=== PATIENT | male | born 1950 | race Caucasian/White ===

== ENCOUNTER 2017-04-26 10:18 | Outpatient (POV) | payer MEDICARE, OTHER, SELFPAY | END 2017-04-26 11:03 | disposition home or self-care (01) | PROVIDERS: Visit Provider Podiatrist | DX: M72.2 Plantar fascial fibromatosis (principal) | CPT/HCPCS: 99212 ==

== ENCOUNTER 2017-05-28 09:45 | Outpatient (CLI) | payer MEDICARE, OTHER, SELFPAY ==
[2017-05-28 13:54] LABS: PHA INR Fingerstick 1.9 (0.9-1.1)
== END 2017-05-28 14:07 | disposition home or self-care (01) ==
LOC: ACC 09:48
PROVIDERS: PCP Family Medicine; Visit Provider Emergency Medicine
DX: I48.91 Unspecified atrial fibrillation (principal); Z79.01 Long term (current) use of anticoagulants; Z51.81 Encounter for therapeutic drug level monitoring
CPT/HCPCS: 85610; 99211; G0463

== ENCOUNTER → 2017-07-05 09:31 | Outpatient (POV) | payer MEDICARE, OTHER, SELFPAY ==
[2017-07-05 09:39] VITALS: BP 164/77; PULSE 95; RESP 22; O2SAT 96; BMI 31.2
--- NOTE | 2017-07-05 10:17 | HMH.PAINSOAP ---
[facility] Pain Management SOAP Note Subjective:: Patient is a pleasant 66-year-old white male who presents today for medication refills. Patient is being treated in our pain clinic for neck pain secondary to cervical degenerative disc disease. He is also has a right sacroiliitis with his is recently been through bilateral mastectomy and he is having a lot of running around to do with her. He states that this increase in activity has elevated his pain some. However the increase of gabapentin at his last visit to 300 mg 1 p.o. 3 times daily has helped decrease his pain significantly. Patient is currently medically managed on [place] 7.5 p.o. 3 times daily and gabapentin 300 mg 1 p.o. 3 times daily. Patient rates his pain a 7 out of 10 today. Patient denies any side effects to the medication. Patient is unable to do injective therapy at this time due to his 's chemotherapy schedule. He is interested in it in the future. Patient denies any side effects from his medication and states that it decreases his pain 50-60%. ROS General: no recent weight change, no fever, no sleep disturbances Respiratory: no cough, no shortness of air, no recurring pulmonary infections Cardiovascular/Peripheral Vascular: No chest pain, No palpitations, no edema, no shortness of breath. Gastrointestinal: no incontinence, normal bowel movements reported Genitourinary: no incontinence Musculoskeletal: Neck pain, back pain, right SI pain Psychiatric: normal mood/ affect Neurological: [denies weakness in extremities], [denies balance issues], vertigo at times Objective:: Physical Exam General: Alert and oriented x3, no acute distress, pleasant and cooperative, [on room air] Lungs: Resps E/U, Symmetrical chest expansion, Eyes: PERRL Musculoskeletal: Flexion and extension of cervical and lumbar spine somewhat guarded secondary to pain, deep tendon reflexes normal, strength in upper and lower extremities [5/5], lightly antalgic gait noted, positive Álvaro's test on the right side Neurological: speech clear, slots manager equal, no gross sensory deficits Assessment:: Degenerative disc disease of the cervical spine, degenerative disc disease of the thoracic spine, degenerative disc disease of the lumbar spine with lumbar radiculopathy, right sacroiliitis Plan:: We will refill this patient's [place] 7.5 p.o. 3 times daily and gabapentin 300 [address] Martel has reviewed his chart and agrees. Patient's UDS is pending today. We will continue to monitor this. Patient's ROSEMARIE [id number] reviewed and appropriate. We will readdress SI joint injection at his next visit. We will give him 2 months worth of prescriptions today and see him back in 3 months. I discussed with the patient that he can take gabapentin up to 4 times a day. If he finds that this is more effective for his pain control we can call this prescription in. Patient has been prescribed a controlled substance after being counseled on the medication, medication safety, and possible side effects. ROSEMARIE report has been obtained and reviewed prior to prescription and found to be appropriate. Opioid contract was reviewed and signed by the patient, and that they have agreed to all of the terms set forth by our compliance program. This note was dictated using voice recognition software may contain errors or omissions
--- NOTE | 2017-07-05 10:20 | P.CONS_ITS ---
[facility] Pain Management SOAP Note Subjective:: Patient is a pleasant 66-year-old white male who presents today for medication refills. Patient is being treated in our pain clinic for neck pain secondary to cervical degenerative disc disease. He is also has a right sacroiliitis with his is recently been through bilateral mastectomy and he is having a lot of running around to do with her. He states that this increase in activity has elevated his pain some. However the increase of gabapentin at his last visit to 300 mg 1 p.o. 3 times daily has helped decrease his pain significantly. Patient is currently medically managed on [place] 7.5 p.o. 3 times daily and gabapentin 300 mg 1 p.o. 3 times daily. Patient rates his pain a 7 out of 10 today. Patient denies any side effects to the medication. Patient is unable to do injective therapy at this time due to his 's chemotherapy schedule. He is interested in it in the future. Patient denies any side effects from his medication and states that it decreases his pain 50-60 %. ROS General: no recent weight change, no fever, no sleep disturbances Respiratory: no cough, no shortness of air, no recurring pulmonary infections Cardiovascular/Peripheral Vascular: No chest pain, No palpitations, no edema, no shortness of breath. Gastrointestinal: no incontinence, normal bowel movements reported Genitourinary: no incontinence Musculoskeletal: Neck pain, back pain, right SI pain Psychiatric: normal mood/ affect Neurological: [denies weakness in extremities], [denies balance issues], vertigo at times Objective:: Physical Exam General: Alert and oriented x3, no acute distress, pleasant and cooperative, [ on room air] Lungs: Resps E/U, Symmetrical chest expansion, Eyes: PERRL Musculoskeletal: Flexion and extension of cervical and lumbar spine somewhat guarded secondary to pain, deep tendon reflexes normal, strength in upper and lower extremities [5/5], lightly antalgic gait noted, positive Álvaro's test on the right side Neurological: speech clear, 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 3 times daily and gabapentin 300 mg [address] Martel has reviewed his chart and agrees. Patient's UDS is pending today. We will continue to monitor this. Patient's ROSEMARIE [id number] reviewed and appropriate. We will readdress SI joint injection at his next visit. We will give him 2 months worth of prescriptions today and see him back in 3 months. I discussed with the patient that he can take gabapentin up to 4 times a day. If he finds that this is more effective for his pain control we can call this prescription in. Patient has been prescribed a controlled substance after being counseled on the medication, medication safety, and possible side effects. ROSEMARIE report has been obtained and reviewed prior to prescription and found to be appropriate. Opioid contract was reviewed and signed by the patient, and that they have agreed to all of the terms set forth by our compliance program. This note was dictated using voice recognition software may contain errors or omissions
[2017-07-05 17:27] LABS: Amphetamine/Metha Screen,Urine Negative ng/mL (<1000); Barbiturates Screen,Urine Negative ng/mL (<200); Benzodiazepines Screen,Urine Negative ng/mL (200); Cannabinoid Screen,Urine Negative ng/mL (<50); Cocaine Screen,Urine Negative ng/g (<300); Methadone Screen,Urine Negative ng/mL (<300); Opiate Screen,Urine Positive ng/mL (<300); Phencyclidine Screen,Urine Negative ng/mL (<25)
[2017-07-12 12:12] LABS: Codeine Negative (Cutoff=100); Hydrocodone Positive (.); Hydromorphone Positive (.); Morphine Negative (Cutoff=100)
[2017-07-12 13:37] LABS: Opiates Positive (.)
--- NOTE | 2017-08-17 13:14 | PC.PHONENOTE ---
08/16/17-called in Rx for Gabapentin 300mg QID with 2 refills to pt pharmacy
--- NOTE | 2017-11-29 11:20 | PC.NURSE ---
GABAPENTIN 300MG QID WITH 2 REFILLS CALLED INTO [facility]
== END ==
PROVIDERS: Family Provider Family Medicine; PCP Family Medicine; Visit Provider Clinical Nurse Specialist Family Health
DX: M54.12 Radiculopathy, cervical region (principal); M46.1 Sacroiliitis, not elsewhere classified; Z79.899 Other long term (current) drug therapy
CPT/HCPCS: 99212; 36415; 80305; 80361; 80365; G0480

== ENCOUNTER 2017-07-09 09:43 | Outpatient (CLI) | payer MEDICARE, OTHER, SELFPAY ==
[2017-07-09 13:27] LABS: PHA INR Fingerstick 1.6 (0.9-1.1)
== END 2017-07-09 13:45 | disposition home or self-care (01) ==
LOC: ACC 09:44
PROVIDERS: Family Provider Family Medicine; PCP Family Medicine; Visit Provider Emergency Medicine
DX: I48.91 Unspecified atrial fibrillation (principal); Z79.01 Long term (current) use of anticoagulants
CPT/HCPCS: 85610; 99211; G0463

== ENCOUNTER 2017-07-30 09:46 | Outpatient (CLI) | payer MEDICARE, OTHER, SELFPAY ==
[2017-07-30 10:44] LABS: PHA INR Fingerstick 1.7 (0.9-1.1)
== END 2017-07-30 10:55 | disposition home or self-care (01) ==
LOC: ACC 09:47
PROVIDERS: Family Provider Family Medicine; PCP Family Medicine; Visit Provider Emergency Medicine
DX: Z79.01 Long term (current) use of anticoagulants (principal); Z51.81 Encounter for therapeutic drug level monitoring; I48.91 Unspecified atrial fibrillation
CPT/HCPCS: 85610; 99211; G0463

== ENCOUNTER 2017-08-20 09:48 | Outpatient (CLI) | payer MEDICARE, OTHER, SELFPAY ==
[2017-08-20 13:36] LABS: PHA INR Fingerstick 1.7 (0.9-1.1)
== END 2017-08-20 13:57 | disposition home or self-care (01) ==
LOC: ACC 09:49
PROVIDERS: Family Provider Family Medicine; PCP Family Medicine; Visit Provider Nurse Practitioner Family
DX: Z79.01 Long term (current) use of anticoagulants (principal); Z51.81 Encounter for therapeutic drug level monitoring; I48.91 Unspecified atrial fibrillation
CPT/HCPCS: 85610; 99211; G0463

== ENCOUNTER → 2017-09-06 10:03 | Outpatient (POV) | payer MEDICARE, OTHER, SELFPAY ==
--- NOTE | 2017-09-06 10:57 | HMH.PAINSOAP ---
[facility] Pain Management SOAP Note Subjective:: This patient is a pleasant 66-year-old white male who we are treating for low back pain with lumbar radiculopathy symptoms. We are also treating him for neck pain with degenerative disease of cervical spine and cervical radiculopathy symptoms. He is currently on [place] 7.5 mg 3 times a day along with gabapentin 300 mg increase to 4 times a day. He is doing well with these medications. Patient rates his pain at a 5-6 out of 10 today. Kaspar and urine drug screen are all appropriate. Kaspar #[id number]. Patient does not need any injections at this time. He is very functional and doing well with his current medication regimen. Medication decreases his pain 60-70%. We will follow-up with him in 3 months. We may pursue injections at that time if needed. We will give him 2 months worth of prescriptions of his [place] 7.5 mg 3 times a day. Objective:: Alert and oriented ?3 in no acute distress. Patient does have an antalgic gait. Motor strength of the lower extremities is 5/5. There is no gross sensory deficit. Assessment:: Degenerative disc disease of the cervical spine with cervical radiculopathy symptoms. Degenerative disease of lumbar spine with lumbar radiculopathy symptoms. Sacroiliitis. Degenerative disease of the thoracic spine. Plan:: We will refill his [place] 7.5 mg 1 tablet 3 times a day. We will give him 2 months worth of prescriptions. Will follow up with him in 3 months. We may pursue injections in the future. At this time patient is doing well on his current medication regimen. He is also on gabapentin 300 mg 4 times a day
--- NOTE | 2017-09-06 11:00 | P.CONS_ITS ---
[facility] Pain Management SOAP Note Subjective:: This patient is a pleasant 66-year-old white male who we are treating for low back pain with lumbar radiculopathy symptoms. We are also treating him for neck pain with degenerative disease of cervical spine and cervical radiculopathy symptoms. He is currently on [place] 7.5 mg 3 times a day along with gabapentin 300 mg increase to 4 times a day. He is doing well with these medications. Patient rates his pain at a 5-6 out of 10 today. Kaspar and urine drug screen are all appropriate. Kaspar #[id number]. Patient does not need any injections at this time. He is very functional and doing well with his current medication regimen. Medication decreases his pain 60-70%. We will follow-up with him in 3 months. We may pursue injections at that time if needed. We will give him 2 months worth of prescriptions of his [place] 7.5 mg 3 times a day. Objective:: Alert and oriented ?3 in no acute distress. Patient does have an antalgic gait. Motor strength of the lower extremities is 5/5. There is no gross sensory deficit. Assessment:: Degenerative disc disease of the cervical spine with cervical radiculopathy symptoms. Degenerative disease of lumbar spine with lumbar radiculopathy symptoms. Sacroiliitis. Degenerative disease of the thoracic spine. Plan:: We will refill his [place] 7.5 mg 1 tablet 3 times a day. We will give him 2 months worth of prescriptions. Will follow up with him in 3 months. We may pursue injections in the future. At this time patient is doing well on his current medication regimen. He is also on gabapentin 300 mg 4 times a day
[2017-09-06 12:04] VITALS: BP 105/88; PULSE 79; RESP 18; TEMP 36.6; O2SAT 97; BMI 31.2
== END ==
PROVIDERS: Family Provider Family Medicine; PCP Family Medicine; Visit Provider Anesthesiology
DX: M54.12 Radiculopathy, cervical region (principal); M54.16 Radiculopathy, lumbar region
CPT/HCPCS: 99212

== ENCOUNTER 2017-09-08 09:43 | Outpatient (CLI) | payer MEDICARE, OTHER, SELFPAY ==
[2017-09-08 11:26] LABS: PHA INR Fingerstick 1.9 (0.9-1.1)
== END 2017-09-08 11:49 | disposition home or self-care (01) ==
LOC: ACC 09:45
PROVIDERS: Family Provider Family Medicine; PCP Family Medicine; Visit Provider Emergency Medicine
DX: Z79.01 Long term (current) use of anticoagulants (principal); Z51.81 Encounter for therapeutic drug level monitoring; I48.91 Unspecified atrial fibrillation
CPT/HCPCS: 85610; 99211; G0463

== ENCOUNTER 2017-09-22 09:43 | Outpatient (CLI) | payer MEDICARE, OTHER, SELFPAY ==
[2017-09-22 11:33] LABS: PHA INR Fingerstick 1.9 (0.9-1.1)
== END 2017-09-22 11:37 | disposition home or self-care (01) ==
LOC: ACC 09:44
PROVIDERS: PCP Nurse Practitioner Family; Visit Provider Nurse Practitioner Family
DX: Z79.01 Long term (current) use of anticoagulants (principal); Z51.81 Encounter for therapeutic drug level monitoring; I48.91 Unspecified atrial fibrillation
CPT/HCPCS: 85610; 99211; G0463

== ENCOUNTER 2017-10-13 09:42 | Outpatient (CLI) | payer MEDICARE, OTHER, SELFPAY ==
[2017-10-13 11:38] LABS: PHA INR Fingerstick 2.2 (0.9-1.1)
== END 2017-10-13 11:39 | disposition home or self-care (01) ==
LOC: ACC 09:43
PROVIDERS: Family Provider Family Medicine; PCP Nurse Practitioner Family; Visit Provider Nurse Practitioner Family
DX: Z79.01 Long term (current) use of anticoagulants (principal); Z51.81 Encounter for therapeutic drug level monitoring; I48.91 Unspecified atrial fibrillation
CPT/HCPCS: 85610; 99211; G0463

== ENCOUNTER → 2017-11-20 08:04 | Outpatient (CLI) | payer MEDICARE, OTHER, SELFPAY ==
[2017-11-20 09:12] LABS: Alanine Aminotransferase 75 U/L (12-78); Albumin Level 3.9 gm/dL (3.4-5.0); Albumin/Globulin Ratio 1.1 (1.1-1.8); Alkaline Phosphatase 43 U/L (46-116); Aspartate Amino Transferase 46 U/L (15-37); Bilirubin,Total 0.5 mg/dL (0.2-1.0); Blood Urea Nitrogen 22 mg/dL (7-18); Calcium 9.5 mg/dL (8.5-10.1); Carbon Dioxide 30 mmol/L (21.0-32.0); Chloride 110 mmol/L (98-107); Chol/HDL Ratio 4.4 (1-3.5); Cholesterol 142 mg/dL (140-200); Creatinine,Serum 0.92 mg/dL (0.70-1.30); Estimated Glomerular Filt Rate 83 ml/min (>60); GFR (African American) 100 ML/MIN (>60); Globulin 3.4 gm/dl (1.3-3.2); Glucose 119 mg/dL (74-106); HDL Cholesterol 32 mg/dL (27-67); LDL Cholesterol 81 mg/dL (0-130); Sodium 144 mmol/L (136-145); Total Protein,Serum 7.3 gm/dL (6.4-8.2); Triglycerides 144 mg/dL (30-200); VLDL Cholesterol 29 mg/dL (0-40)
== END ==
PROVIDERS: Visit Provider Family Medicine
DX: E11.9 Type 2 diabetes mellitus without complications (principal); E78.5 Hyperlipidemia, unspecified; I10 Essential (primary) hypertension
CPT/HCPCS: 36415; 80053; 80061; 83036

== ENCOUNTER 2017-11-24 09:41 | Outpatient (CLI) | payer MEDICARE, OTHER, SELFPAY | END 2017-11-24 16:07 | disposition home or self-care (01) | LOC: ACC 09:42 | PROVIDERS: Family Provider Family Medicine; PCP Nurse Practitioner Family; Visit Provider Nurse Practitioner Family | DX: Z79.01 Long term (current) use of anticoagulants (principal); Z51.81 Encounter for therapeutic drug level monitoring; I48.91 Unspecified atrial fibrillation | CPT/HCPCS: 85610; 99211; G0463 ==

== ENCOUNTER → 2017-12-06 08:49 | Outpatient (POV) | payer MEDICARE, OTHER, SELFPAY ==
[2017-12-06 08:52] VITALS: BP 173/84; PULSE 85; RESP 18; O2SAT 98; BMI 30.9
--- NOTE | 2017-12-06 09:15 | HMH.PAINSOAP ---
[facility] Pain Management SOAP Note Subjective:: Patient is a pleasant 67-year-old white male who presents today for medication refills. We are treating him for pain secondary to degenerative disc disease of cervical spine with cervical radiculopathy. Patient also has degenerative disc disease of the lumbar spine with lumbar radiculopathy. Patient states most of his pain is in his mid back today. He states it does not radiate at this time. He is currently Beekley managed with [place] 7.5 mg 1 p.o. 3 times daily. Is also on gabapentin 300 mg 4 times a day however he states he is having some side effects due to the increase in his gabapentin at his last visit. Patient states he is having some memory trouble since increasing his gabapentin we will decrease him today patient's [facility] #[id number] reviewed and appropriate. Patient will go for urine drug screen today. Patient's urine drug screen has been appropriate in the past. Patient rates his pain a 7 out of 10 today. Patient had injections in the past however he states that it has not helped him much. Patient states the medication helps decrease his pain up to 70%. ROS General: no recent weight change, no fever, no sleep disturbances Respiratory: no cough, no shortness of air, no recurring pulmonary infections Cardiovascular/Peripheral Vascular: No chest pain, No palpitations, no edema, no shortness of breath. Gastrointestinal: no incontinence, normal bowel movements reported Genitourinary: no incontinence Musculoskeletal: Back pain Psychiatric: normal mood/ affect Neurological: [denies weakness in extremities], [denies balance issues] Objective:: Physical Exam General: Alert and oriented x3, no acute distress, pleasant and cooperative, [on room air] Lungs: Resps E/U, Symmetrical chest expansion Eyes: PERRL Musculoskeletal: Flexion and extension of thoracic and lumbar spine somewhat guarded secondary to pain, deep tendon reflexes normal, strength in upper and lower extremities [5/5], normal gait noted Neurological: speech clear, 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 Degenerative disc disease of the thoracic spine Plan:: We will refill the patient's [place] 7.5 mg 1 tablet p.o. 3 times daily. We will decrease his gabapentin to 300 mg 1 p.o. 3 times daily. I will give him 2 months worth of medications will follow-up with him in 3 months. Patient can picker box operator his third month in the interim. Patient's been instructed to call the office if he has any issues prior to this. Dr. Martel has reviewed this chart and agrees with this plan of care. Patient has been prescribed a controlled substance after being counseled on the medication, medication safety, and possible side effects. ROSEMARIE report has been obtained and reviewed prior to prescription and found to be appropriate. Opioid contract was reviewed and signed by the patient, and that they have agreed to all of the terms set forth by our compliance program. This note was dictated using voice recognition software and may contain errors or omissions
--- NOTE | 2017-12-06 09:18 | P.CONS_ITS ---
[facility] Pain Management SOAP Note Subjective:: Patient is a pleasant 67-year-old white male who presents today for medication refills. We are treating him for pain secondary to degenerative disc disease of cervical spine with cervical radiculopathy. Patient also has degenerative disc disease of the lumbar spine with lumbar radiculopathy. Patient states most of his pain is in his mid back today. He states it does not radiate at this time. He is currently Beekley managed with [place] 7.5 mg 1 p.o. 3 times daily. Is also on gabapentin 300 mg 4 times a day however he states he is having some side effects due to the increase in his gabapentin at his last visit. Patient states he is having some memory trouble since increasing his gabapentin we will decrease him today patient's [facility] #[id number] reviewed and appropriate. Patient will go for urine drug screen today. Patient's urine drug screen has been appropriate in the past. Patient rates his pain a 7 out of 10 today. Patient had injections in the past however he states that it has not helped him much. Patient states the medication helps decrease his pain up to 70%. ROS General: no recent weight change, no fever, no sleep disturbances Respiratory: no cough, no shortness of air, no recurring pulmonary infections Cardiovascular/Peripheral Vascular: No chest pain, No palpitations, no edema, no shortness of breath. Gastrointestinal: no incontinence, normal bowel movements reported Genitourinary: no incontinence Musculoskeletal: Back pain Psychiatric: normal mood/ affect Neurological: [denies weakness in extremities], [denies balance issues] Objective:: Physical Exam General: Alert and oriented x3, no acute distress, pleasant and cooperative, [ on room air] Lungs: Resps E/U, Symmetrical chest expansion Eyes: PERRL Musculoskeletal: Flexion and extension of thoracic and lumbar spine somewhat guarded secondary to pain, deep tendon reflexes normal, strength in upper and lower extremities [5/5], normal gait noted Neurological: speech clear, senior environmental practice leader equal, no gross sensory deficits Assessment:: Degenerative disc disease of the cervical spine with cervical radiculopathy symptoms, degenerative disc disease of lumbar spine with lumbar radiculopathy symptoms. Degenerative disc disease of the thoracic spine Plan:: We will refill the patient's [place] 7.5 mg 1 tablet p.o. 3 times daily. We will decrease his gabapentin to 300 mg 1 p.o. 3 times daily. I will give him 2 months worth of medications will follow-up with him in 3 months. Patient can olive picker his third month in the interim. Patient's been instructed to call the office if he has any issues prior to this. Dr. Martel has reviewed this chart and agrees with this plan of care. Patient has been prescribed a controlled substance after being counseled on the medication, medication safety, and possible side effects. ROSEMARIE report has been obtained and reviewed prior to prescription and found to be appropriate. Opioid contract was reviewed and signed by the patient, and that they have agreed to all of the terms set forth by our compliance program. This note was dictated using voice recognition software and may contain errors or omissions
[2017-12-06 15:33] LABS: Amphetamine/Metha Screen,Urine Negative ng/mL (<1000); Barbiturates Screen,Urine Negative ng/mL (<200); Benzodiazepines Screen,Urine Negative ng/mL (<200); Cannabinoid Screen,Urine Negative ng/mL (<50); Cocaine Screen,Urine Negative ng/mL (<300); Methadone Screen,Urine Negative ng/mL (<300); Opiate Screen,Urine Positive ng/mL (<300); Phencyclidine Screen,Urine Negative ng/mL (<25)
[2017-12-15 15:25] LABS: Codeine Negative (Cutoff=100); Hydrocodone Positive (.); Hydromorphone Positive (.); Morphine Negative (Cutoff=100)
[2017-12-16 06:47] LABS: Opiates Positive (.)
== END ==
PROVIDERS: Family Provider Family Medicine; PCP Nurse Practitioner Family; Visit Provider Clinical Nurse Specialist Family Health
DX: M50.10 Cervical disc disorder with radiculopathy, unspecified cervical region (principal); M51.16 Intervertebral disc disorders with radiculopathy, lumbar region; M51.34 Other intervertebral disc degeneration, thoracic region; Z79.899 Other long term (current) drug therapy
CPT/HCPCS: 80305; 80361; 80365; 99212; G0480

== ENCOUNTER 2018-01-05 09:51 | Outpatient (CLI) | payer MEDICARE, OTHER, SELFPAY ==
[2018-01-05 11:27] LABS: PHA INR Fingerstick 2.1 (0.9-1.1)
== END 2018-01-05 11:34 | disposition home or self-care (01) ==
LOC: ACC 09:52
PROVIDERS: Family Provider Family Medicine; PCP Nurse Practitioner Family; Visit Provider Nurse Practitioner Family
DX: I48.91 Unspecified atrial fibrillation (principal); Z79.01 Long term (current) use of anticoagulants
CPT/HCPCS: 85610; 99211; G0463

== ENCOUNTER → 2018-02-07 08:51 | Outpatient (POV) | payer MEDICARE, OTHER, SELFPAY ==
[2018-02-07 09:17] VITALS: BP 165/70; PULSE 84; RESP 18; O2SAT 98; BMI 29.9
--- NOTE | 2018-02-07 09:27 | HMH.PAINSOAP ---
[facility] Pain Management SOAP Note Subjective:: Patient is a pleasant 67-year-old white male who presents today for medication refills. We are treating him for pain secondary to degenerative disc disease of the cervical spine with cervical radiculopathy. Patient also has degenerative disc disease lumbar spine with lumbar radiculopathy. Patient is currently having a lot of SI joint pain. Patient would like to have an SI joint injection on both sides. Patient is currently being medically managed with [place] 7.5 mg 1 p.o. 3 times daily and gabapentin 300 mg 1 p.o. 3 times daily pain patient denies any side effects to his medication and states it helps up to 70% patient's ROSEMARIE #[id number] reviewed and appropriate. He rates his pain a 7 out of 10 today. Patient's urine drug screen has been appropriate in the past. ROS General: no recent weight change, no fever, no sleep disturbances Respiratory: no cough, no shortness of air, no recurring pulmonary infections Cardiovascular/Peripheral Vascular: No chest pain, No palpitations, no edema, no shortness of breath. Gastrointestinal: no incontinence, normal bowel movements reported Genitourinary: no incontinence Musculoskeletal: Bilateral SI joint pain Psychiatric: normal mood/ affect Neurological: [denies weakness in extremities], [denies balance issues] Objective:: Physical Exam General: Alert and oriented x3, no acute distress, pleasant and cooperative, [on room air] Lungs: Resps E/U, Symmetrical chest expansion, Eyes: PERRL Musculoskeletal: Flexion and extension of lumbar spine somewhat guarded secondary to pain, deep tendon reflexes normal, strength in upper and lower extremities [5/5], slightly antalgic gait noted, positive Álvaro's test bilaterally Neurological: speech clear, feed crusher equal, no gross sensory deficits Assessment:: Sacroiliitis, degenerative disc disease of the cervical spine with cervical radiculopathy symptoms, degenerative disc disease lumbar spine with lumbar radiculopathy symptoms Plan:: We will schedule bilateral SI joint injections for the patient. We will also refill his [place] 7.5 mg 1 tab p.o. 3 times daily and his gabapentin 300 mg 1 p.o. 3 times daily we will give him 2 months worth of medication and follow-up with him in 3 months he can last picker the third month in the interim. Patient's been instructed to call the office if he has any issues prior to this. Dr. Martel is reviewed this chart and agrees with this plan of care. Patient has been prescribed a controlled substance after being counseled on the medication, medication safety, and possible side effects. ROSEMARIE report has been obtained and reviewed prior to prescription and found to be appropriate. Opioid contract was reviewed and signed by the patient, and that they have agreed to all of the terms set forth by our compliance program. This note was dictated using voice recognition software and may contain errors or omissions
--- NOTE | 2018-02-07 09:30 | P.CONS_ITS ---
[facility] Pain Management SOAP Note Subjective:: Patient is a pleasant 67-year-old white male who presents today for medication refills. We are treating him for pain secondary to degenerative disc disease of the cervical spine with cervical radiculopathy. Patient also has degenerative disc disease lumbar spine with lumbar radiculopathy. Patient is currently having a lot of SI joint pain. Patient would like to have an SI joint injection on both sides. Patient is currently being medically managed with [place] 7.5 mg 1 p.o. 3 times daily and gabapentin 300 mg 1 p.o. 3 times daily pain patient denies any side effects to his medication and states it helps up to 70% patient's ROSEMARIE #[id number] reviewed and appropriate. He rates his pain a 7 out of 10 today. Patient's urine drug screen has been appropriate in the past. ROS General: no recent weight change, no fever, no sleep disturbances Respiratory: no cough, no shortness of air, no recurring pulmonary infections Cardiovascular/Peripheral Vascular: No chest pain, No palpitations, no edema, no shortness of breath. Gastrointestinal: no incontinence, normal bowel movements reported Genitourinary: no incontinence Musculoskeletal: Bilateral SI joint pain Psychiatric: normal mood/ affect Neurological: [denies weakness in extremities], [denies balance issues] Objective:: Physical Exam General: Alert and oriented x3, no acute distress, pleasant and cooperative, [on room air] Lungs: Resps E/U, Symmetrical chest expansion, Eyes: PERRL Musculoskeletal: Flexion and extension of lumbar spine somewhat guarded secondary to pain, deep tendon reflexes normal, strength in upper and lower extremities [5/5], slightly antalgic gait noted, positive Álvaro's test bilaterally Neurological: speech clear, coin teller equal, no gross sensory deficits Assessment:: Sacroiliitis, degenerative disc disease of the cervical spine with cervical radiculopathy symptoms, degenerative disc disease lumbar spine with lumbar radiculopathy symptoms Plan:: We will schedule bilateral SI joint injections for the patient. We will also refill his [place] 7.5 mg 1 tab p.o. 3 times daily and his gabapentin 300 mg 1 p.o. 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 Patient's been instructed to call the office if he has any issues prior to this. Dr. Martel is reviewed this chart and agrees with this plan of care. Patient has been prescribed a controlled substance after being counseled on the medication, medication safety, and possible side effects. ROSEMARIE report has been obtained and reviewed prior to prescription and found to be appropriate. Opioid contract was reviewed and signed by the patient, and that they have agreed to all of the terms set forth by our compliance program. This note was dictated using voice recognition software and may contain errors or omissions
== END ==
PROVIDERS: Family Provider Family Medicine; PCP Nurse Practitioner Family; Visit Provider Clinical Nurse Specialist Family Health
DX: M46.1 Sacroiliitis, not elsewhere classified (principal); M50.10 Cervical disc disorder with radiculopathy, unspecified cervical region; M51.16 Intervertebral disc disorders with radiculopathy, lumbar region
CPT/HCPCS: 99213

== ENCOUNTER → 2018-02-08 08:45 | Outpatient (POV) | payer MEDICARE, OTHER, SELFPAY | PROVIDERS: Family Provider Family Medicine; PCP Nurse Practitioner Family; Visit Provider Internal Medicine | DX: Z00.00 Encounter for general adult medical examination without abnormal findings (principal) ==

== ENCOUNTER 2018-02-23 09:50 | Outpatient (CLI) | payer MEDICARE, OTHER, SELFPAY ==
[2018-02-23 13:33] LABS: PHA INR Fingerstick 2.1 (0.9-1.1)
== END 2018-02-23 13:44 | disposition home or self-care (01) ==
LOC: ACC 09:51
PROVIDERS: Family Provider Family Medicine; PCP Nurse Practitioner Family; Visit Provider Nurse Practitioner Family
DX: Z51.81 Encounter for therapeutic drug level monitoring (principal); Z79.01 Long term (current) use of anticoagulants; I48.91 Unspecified atrial fibrillation
CPT/HCPCS: 85610; 99211; G0463

== ENCOUNTER → 2018-03-15 10:52 | Outpatient (POV) | payer MEDICARE, OTHER, SELFPAY ==
[2018-03-15 11:10] VITALS: BP 140/69; PULSE 90; RESP 18; O2SAT 98; BMI 30.6
--- NOTE | 2018-03-15 11:44 | HMH.PAINSOAP ---
[facility] Pain Management SOAP Note Subjective:: Patient is a pleasant 67-year-old white male who presents today after bilateral SI joint injections. Patient states he is doing well after his injections he rates his pain a 5 out of 10 however mostly in his low back. Patient is being medically managed for degenerative disc disease lumbar spine. With [place] 7.5 mg 1 p.o. 3 times daily. Patient denies side effects to his medication. Patient Kaspar #[id number] reviewed and appropriate. Patient states it helps up to 80%. ROS General: no recent weight change, no fever, no sleep disturbances Respiratory: no cough, no shortness of air, no recurring pulmonary infections Cardiovascular/Peripheral Vascular: No chest pain, No palpitations, no edema, no shortness of breath. Gastrointestinal: no incontinence, normal bowel movements reported Genitourinary: no incontinence Musculoskeletal: Back pain Psychiatric: normal mood/ affect Neurological: [denies weakness in extremities], [denies balance issues] Objective:: Physical Exam General: Alert and oriented x3, no acute distress, pleasant and cooperative, [on room air] Lungs: Resps E/U, Symmetrical chest expansion, Eyes: PERRL Musculoskeletal: Flexion and extension of bar spine somewhat guarded secondary to pain, deep tendon reflexes normal, strength in upper and lower extremities [5/5], slightly antalgic gait noted Neurological: speech clear, structural steel worker helper equal, no gross sensory deficits Assessment:: Degenerative disc disease lumbar spine with lumbar radiculopathy, degenerative disc disease cervical spine, sacroiliitis Plan:: We will refill the patient's [place] 7.5 mg 1 p.o. 3 times daily and give him 2 months worth of prescriptions. We will follow-up with him in in 3 months and he can picking tech his third prescription in the interim. Dr. Martel has reviewed this chart and agrees with this plan of care. Patient's been instructed to call the office if he has any issues prior to his next appointment. Patient has been prescribed a controlled substance after being counseled on the medication, medication safety, and possible side effects. ROSEMARIE report has been obtained and reviewed prior to prescription and found to be appropriate. Opioid contract was reviewed and signed by the patient, and that they have agreed to all of the terms set forth by our compliance program. This note was dictated using voice recognition software and may contain errors or omissions
--- NOTE | 2018-03-15 11:47 | P.CONS_ITS ---
[facility] Pain Management SOAP Note Subjective:: Patient is a pleasant 67-year-old white male who presents today after bilateral SI joint injections. Patient states he is doing well after his injections he rates his pain a 5 out of 10 however mostly in his low back. Patient is being medically managed for degenerative disc disease lumbar spine. With [place] 7.5 mg 1 p.o. 3 times daily. Patient denies side effects to his medication. Patient Kaspar #[id number] reviewed and appropriate. Patient states it helps up to 80%. ROS General: no recent weight change, no fever, no sleep disturbances Respiratory: no cough, no shortness of air, no recurring pulmonary infections Cardiovascular/Peripheral Vascular: No chest pain, No palpitations, no edema, no shortness of breath. Gastrointestinal: no incontinence, normal bowel movements reported Genitourinary: no incontinence Musculoskeletal: Back pain Psychiatric: normal mood/ affect Neurological: [denies weakness in extremities], [denies balance issues] Objective:: Physical Exam General: Alert and oriented x3, no acute distress, pleasant and cooperative, [on room air] Lungs: Resps E/U, Symmetrical chest expansion, Eyes: PERRL Musculoskeletal: Flexion and extension of bar spine somewhat guarded secondary to pain, deep tendon reflexes normal, strength in upper and lower extremities [5/5], slightly antalgic gait noted Neurological: speech clear, oven heater equal, no gross sensory deficits Assessment:: Degenerative disc disease lumbar spine with lumbar radiculopathy, degenerative disc disease cervical spine, sacroiliitis Plan:: We will refill the patient's [place] 7.5 mg 1 p.o. 3 times daily and give him 2 months worth of prescriptions. We will follow-up with him in in 3 months and he can pickle pumper his third prescription in the interim. Dr. Martel has reviewed this chart and agrees with this plan of care. Patient's been instructed to call the office if he has any issues prior to his next appointment. Patient has been prescribed a controlled substance after being counseled on the medication, medication safety, and possible side effects. ROSEMARIE report has been obtained and reviewed prior to prescription and found to be appropriate. Opioid contract was reviewed and signed by the patient, and that they have agreed to all of the terms set forth by our compliance program. This note was dictated using voice recognition software and may contain errors or omissions
== END ==
PROVIDERS: PCP Family Medicine; Visit Provider Clinical Nurse Specialist Family Health
DX: M51.16 Intervertebral disc disorders with radiculopathy, lumbar region (principal); M46.1 Sacroiliitis, not elsewhere classified; M50.30 Other cervical disc degeneration, unspecified cervical region
CPT/HCPCS: 99213

== ENCOUNTER → 2018-03-17 09:44 | Outpatient (CLI) | payer MEDICARE, OTHER, SELFPAY ==
[2018-03-17 10:10] VITALS: PULSE 84
== END ==
PROVIDERS: PCP Family Medicine; Visit Provider Internal Medicine
DX: J45.20 Mild intermittent asthma, uncomplicated (principal)
CPT/HCPCS: 94060; 94640

== ENCOUNTER 2018-04-06 09:51 | Outpatient (CLI) | payer MEDICARE, OTHER, SELFPAY ==
[2018-04-06 10:43] LABS: PHA INR Fingerstick 2.1 (0.9-1.1)
== END 2018-04-06 10:57 | disposition home or self-care (01) ==
LOC: ACC 09:52
PROVIDERS: PCP Emergency Medicine; Visit Provider Nurse Practitioner Family
DX: Z51.81 Encounter for therapeutic drug level monitoring (principal); Z79.01 Long term (current) use of anticoagulants; I48.91 Unspecified atrial fibrillation
CPT/HCPCS: 85610; 99211; G0463

== ENCOUNTER → 2018-05-12 10:36 | Outpatient (CLI) | payer MEDICARE, BC, SELFPAY ==
[2018-05-12 11:35] LABS: Amphetamine/Metha Screen,Urine Negative ng/mL (<1000); Barbiturates Screen,Urine Negative ng/mL (<200); Benzodiazepines Screen,Urine Negative ng/mL (<200); Cannabinoid Screen,Urine Negative ng/mL (<50); Cocaine Screen,Urine Negative ng/mL (<300); Methadone Screen,Urine Negative ng/mL (<300); Opiate Screen,Urine Positive ng/mL (<300); Phencyclidine Screen,Urine Negative ng/mL (<25)
[2018-05-17 08:24] LABS: Codeine Negative (Cutoff=100); Hydrocodone Positive (.); Hydromorphone Positive (.); Morphine Negative (Cutoff=100)
[2018-05-17 13:59] LABS: Opiates Positive (.)
== END ==
PROVIDERS: Visit Provider Clinical Nurse Specialist Family Health
DX: Z79.899 Other long term (current) drug therapy (principal)
CPT/HCPCS: 80305; 80361; 80365; G0480

== ENCOUNTER 2018-06-01 09:48 | Outpatient (CLI) | payer MEDICARE, BC, SELFPAY ==
[2018-06-01 11:02] LABS: PHA INR Fingerstick 1.8 (0.9-1.1)
== END 2018-06-01 11:34 | disposition home or self-care (01) ==
LOC: ACC 09:50
PROVIDERS: PCP Emergency Medicine; Visit Provider Emergency Medicine
DX: Z51.81 Encounter for therapeutic drug level monitoring (principal); Z79.01 Long term (current) use of anticoagulants; I48.91 Unspecified atrial fibrillation
CPT/HCPCS: 85610; 99211; G0463

== ENCOUNTER → 2018-06-06 09:31 | Outpatient (POV) | payer MEDICARE, BC, SELFPAY ==
[2018-06-06 09:32] VITALS: BP 127/58; PULSE 84; RESP 18; O2SAT 98; BMI 30.4
--- NOTE | 2018-06-06 10:03 | HMH.PAINSOAP ---
[facility] Pain Management SOAP Note Subjective:: Patient is a pleasant 67-year-old white male who presents today for follow-up. Patient is doing well he rates his pain a 5 out of 10 he is having some tailbone pain that he is using his compounding cream which works well for him. He is currently on [place] 7.5 mg 1 p.o. 3 times daily. He denies side effects to his medication and states that it helps up to 80%. ROSEMARIE reviewed and appropriate. Urine drug screen has been appropriate. ROS General: no recent weight change, no fever, no sleep disturbances Respiratory: no cough, no shortness of air, no recurring pulmonary infections Cardiovascular/Peripheral Vascular: No chest pain, No palpitations, no edema, no shortness of breath. Gastrointestinal: no incontinence, normal bowel movements reported Genitourinary: no incontinence Musculoskeletal: Back pain, tailbone pain Psychiatric: normal mood/ affect Neurological: [denies weakness in extremities], [denies balance issues] Objective:: Physical Exam General: Alert and oriented x3, no acute distress, pleasant and cooperative, [on room air] Lungs: Resps E/U, Symmetrical chest expansion, Eyes: PERRL Musculoskeletal: Flexion and extension of lumbar spine somewhat guarded secondary to pain, deep tendon reflexes normal, strength in upper and lower extremities [5/5], slightly antalgic gait noted Neurological: speech clear, contact officer equal, no gross sensory deficits Assessment:: Of disc disease lumbar spine with lumbar radiculopathy, degenerative disc disease cervical spine, sacroiliitis Plan:: We will refill the patient's [place] 7.5 mg 1 p.o. 3 times daily and give him 2 months worth of prescriptions. We will follow-up with him in 3 months and he can brick picker his third month prescription. We will also be changing his compounding pharmacy to the pharmacy in [place] due to his goal to getting a hold of the pharmacy he is currently using. Patient has been prescribed a controlled substance after being counseled on the medication, medication safety, and possible side effects. ROSEMARIE report has been obtained and reviewed prior to prescription and found to be appropriate. Opioid contract was reviewed and signed by the patient, and that they have agreed to all of the terms set forth by our compliance program. Dr. Martel has reviewed this note and agrees with this plan of care. This note was dictated using voice recognition software and may contain errors or omissions
== END ==
PROVIDERS: PCP Family Medicine; Visit Provider Clinical Nurse Specialist Family Health
DX: M51.16 Intervertebral disc disorders with radiculopathy, lumbar region (principal); M50.30 Other cervical disc degeneration, unspecified cervical region; M46.1 Sacroiliitis, not elsewhere classified
CPT/HCPCS: 99213

== ENCOUNTER 2018-06-22 09:48 | Outpatient (CLI) | payer MEDICARE, BC, SELFPAY ==
[2018-06-22 15:06] LABS: PHA INR Fingerstick 1.8 (0.9-1.1)
== END 2018-06-22 15:13 | disposition home or self-care (01) ==
LOC: ACC 09:49
PROVIDERS: PCP Nurse Practitioner Family; Visit Provider Nurse Practitioner Family
DX: Z51.81 Encounter for therapeutic drug level monitoring (principal); Z79.01 Long term (current) use of anticoagulants
CPT/HCPCS: 85610; 99211; G0463

== ENCOUNTER 2018-07-20 09:52 | Outpatient (CLI) | payer MEDICARE, BC, SELFPAY ==
--- NOTE | 2018-08-16 09:29 | PC.NURSE ---
gabapentin 300mg qid with 2 refills called into [facility] pharmacy per provider order
== END 2018-07-20 11:36 | disposition home or self-care (01) ==
LOC: ACC 09:54
PROVIDERS: PCP Family Medicine; Visit Provider Nurse Practitioner Family
DX: Z51.81 Encounter for therapeutic drug level monitoring (principal); Z79.01 Long term (current) use of anticoagulants; I48.91 Unspecified atrial fibrillation
CPT/HCPCS: 85610; 99211; G0463

== ENCOUNTER 2018-08-17 09:50 | Outpatient (CLI) | payer MEDICARE, BC, SELFPAY | END 2018-08-17 10:44 | disposition home or self-care (01) | LOC: ACC 09:52 | PROVIDERS: PCP Emergency Medicine; Visit Provider Nurse Practitioner Family | DX: Z51.81 Encounter for therapeutic drug level monitoring (principal); Z79.01 Long term (current) use of anticoagulants; I48.91 Unspecified atrial fibrillation | CPT/HCPCS: 85610; 99211; G0463 ==

== ENCOUNTER → 2018-09-16 10:46 | Outpatient (POV) | payer MEDICARE, BC, SELFPAY ==
[2018-09-16 11:52] VITALS: BP 150/70; PULSE 79; RESP 18; O2SAT 97; BMI 30.9
--- NOTE | 2018-09-16 12:00 | P.CONS_ITS ---
[facility] Pain Management SOAP Note Subjective:: This patient is a pleasant 67-year-old white male who presents for follow-up and prescription refill. Patient rates his pain had a 4 out of 10. He is doing very well. Nicolas and urine drug screen are all appropriate. Nicolas #[id number]. He is currently on [place] 7.5 mg 3 times a day. He does very well with his medication is helped some 80%. He is asking about CBD oil. He may consider using this. He will let us know if he does start using it. Objective:: Alert and oriented x3 no acute distress. Patient does have an antalgic gait. Motor strength of lower extremities is 5/5. There is no gross sensory deficit. Assessment:: Degenerative disc disease of lumbar spine with lumbar radiculopathy symptoms. Degenerative disease of the cervical spine with cervical radiculopathy symptoms Plan:: We will refill his [place] 7.5 mg 1 tablet 3 times a day. He is to continue with his gabapentin. He is also to continue with his compounding cream. We will follow-up with him in 2 months. We will reevaluate his symptoms at that time.
== END ==
PROVIDERS: PCP Family Medicine; Visit Provider Anesthesiology
DX: M51.16 Intervertebral disc disorders with radiculopathy, lumbar region (principal); M50.10 Cervical disc disorder with radiculopathy, unspecified cervical region
CPT/HCPCS: 99211

== ENCOUNTER → 2018-09-23 11:13 | Outpatient (CLI) | payer MEDICARE, BC, SELFPAY | PROVIDERS: PCP Family Medicine; Visit Provider Internal Medicine Cardiovascular Disease | DX: R00.2 Palpitations (principal) | CPT/HCPCS: 93005 ==

== ENCOUNTER 2018-09-28 09:44 | Outpatient (CLI) | payer MEDICARE, BC, SELFPAY ==
[2018-09-28 13:39] LABS: PHA INR Fingerstick 1.7 (0.9-1.1)
== END 2018-09-28 13:46 | disposition home or self-care (01) ==
LOC: ACC 09:47
PROVIDERS: PCP Family Medicine; Visit Provider Nurse Practitioner Family
DX: Z51.81 Encounter for therapeutic drug level monitoring (principal); Z79.01 Long term (current) use of anticoagulants; I48.91 Unspecified atrial fibrillation
CPT/HCPCS: 85610; 99211; G0463

== ENCOUNTER 2018-10-19 10:14 | Outpatient (CLI) | payer MEDICARE, BC, SELFPAY | END 2018-10-19 11:29 | disposition home or self-care (01) | LOC: ACC 10:15 | PROVIDERS: PCP Emergency Medicine; Visit Provider Nurse Practitioner Family | DX: Z51.81 Encounter for therapeutic drug level monitoring (principal); Z79.01 Long term (current) use of anticoagulants; I48.91 Unspecified atrial fibrillation | CPT/HCPCS: 85610; 99211; G0463 ==

== ENCOUNTER → 2018-11-14 10:00 | Outpatient (CLI) | payer MEDICARE, BC, SELFPAY ==
[2018-11-14 14:31] LABS: Amphetamine/Metha Screen,Urine Negative ng/mL (<1000); Barbiturates Screen,Urine Negative ng/mL (<200); Benzodiazepines Screen,Urine Negative ng/mL (<200); Cannabinoid Screen,Urine Negative ng/mL (<50); Cocaine Screen,Urine Negative ng/mL (<300); Methadone Screen,Urine Negative ng/mL (<300); Opiate Screen,Urine Positive ng/mL (<300); Phencyclidine Screen,Urine Negative ng/mL (<25)
[2018-11-19 13:10] LABS: Codeine Negative (Cutoff=100); Hydrocodone Positive (.); Hydromorphone Positive (.); Morphine Negative (Cutoff=100)
[2018-11-20 22:48] LABS: Opiates Positive (.)
== END ==
PROVIDERS: Visit Provider Clinical Nurse Specialist Family Health
DX: Z79.899 Other long term (current) drug therapy (principal)
CPT/HCPCS: 80305; 80361; 80365; G0480

== ENCOUNTER 2018-11-28 09:45 | Outpatient (CLI) | payer MEDICARE, BC, SELFPAY ==
[2018-11-28 11:23] LABS: PHA INR Fingerstick 2.1 (0.9-1.1)
== END 2018-11-28 11:25 | disposition home or self-care (01) ==
LOC: ACC 09:47
PROVIDERS: PCP Family Medicine; Visit Provider Nurse Practitioner Family
DX: Z51.81 Encounter for therapeutic drug level monitoring (principal); Z79.01 Long term (current) use of anticoagulants; I48.91 Unspecified atrial fibrillation
CPT/HCPCS: 85610; 99211; G0463

== ENCOUNTER → 2018-12-12 09:08 | Outpatient (POV) | payer MEDICARE, BC, SELFPAY ==
[2018-12-12 09:17] VITALS: BP 179/74; PULSE 81; RESP 18; O2SAT 98; BMI 30.9
--- NOTE | 2018-12-12 09:42 | P.CONS_ITS ---
[facility] Pain Management SOAP Note Subjective:: Pleasant 68-year-old white male who presents today for medication refills. He is currently on [place] 7.5 mg 1 p.o. 3 times daily. Patient denies side effects. Rosemarie #[id number] reviewed and appropriate. He is on gabapentin 300 mg 1 p.o. 4 times daily. Patient has decreased this to 3 times a day per conversation last time. Patient will begin to wean this off he is having issues with his memory. Patient is also utilizing CBD oil at times. Urine drug screens have been appropriate. He rates his pain today a 7 out of 10 ROS General: no recent weight change, no fever, no sleep disturbances Respiratory: no cough, no shortness of air, no recurring pulmonary infections Cardiovascular/Peripheral Vascular: No chest pain, No palpitations, no edema, no shortness of breath. Gastrointestinal: no incontinence, normal bowel movements reported Genitourinary: no incontinence Musculoskeletal: Back pain, leg pain Psychiatric: normal mood/ affect Neurological: [denies weakness in extremities], [denies balance issues] Objective:: Physical Exam General: Alert and oriented x3, no acute distress, pleasant and cooperative, [on room air] Lungs: Resps E/U, Symmetrical chest expansion, Eyes: PERRL Musculoskeletal: Flexion and extension of lumbar spine somewhat guarded secondary to pain, deep tendon reflexes normal, strength in upper and lower extremities [5/5], [abnormal gait noted] Neurological: speech clear, electronic publications specialist equal, no gross sensory deficits Assessment:: Degenerative disc disease lumbar spine with lumbar radiculopathy degenerative disc disease cervical spinal cervical radiculopathy Plan:: We will refill his [place] 7.5 mg 1 p.o. 3 times daily he is in a wean off of his gabapentin. We will give him 1 month and see him back in 1 month reassess his symptoms at that time. Patient's been instructed to call the office if he has any issues prior to his next appointment. Patient has been prescribed a controlled substance after being counseled on the medication, medication safety, and possible side effects. ROSEMARIE report has been obtained and reviewed prior to prescription and found to be appropriate. Opioid contract was reviewed and signed by the patient, and that they have agreed to a ll of the terms set forth by our compliance program. Dr. Martel has reviewed this note and agrees with this plan of care. This note was dictated using voice recognition software and may contain errors or omissions Pain Management Hx Components *Have you ever received a pneumonia vaccine?: Yes *Have you received a flu vaccine this season?: Yes - *Social History *Occupational Status:: employed, retired *Travel in the last 8 weeks: None
== END ==
PROVIDERS: PCP Family Medicine; Visit Provider Clinical Nurse Specialist Family Health
DX: M51.16 Intervertebral disc disorders with radiculopathy, lumbar region (principal); M50.10 Cervical disc disorder with radiculopathy, unspecified cervical region
CPT/HCPCS: 99212

== ENCOUNTER → 2019-01-10 09:02 | Outpatient (POV) | payer MEDICARE, BC, SELFPAY ==
--- NOTE | 2019-01-10 09:53 | P.CONS_ITS ---
[facility] Pain Management SOAP Note Subjective:: Patient is a pleasant 68-year-old white male who presents today for follow-up. Patient rates his pain 8 out of 10 he has weaned off his gabapentin. Patient's ROSEMARIE #[id number] reviewed and appropriate. Patient was having side effects to his gabapentin. We discussed changing it to Lyrica he is interested in this. We will start Lyrica 75 mg 1 p.o. twice daily. He is also utilizing CBD oil at times. Patient denies side effects to his medications. His urine drug screens have been appropriate. ROS General: no recent weight change, no fever, no sleep disturbances Respiratory: no cough, no shortness of air, no recurring pulmonary infections Cardiovascular/Peripheral Vascular: No chest pain, No palpitations, no edema, no shortness of breath. Gastrointestinal: no incontinence, normal bowel movements reported Genitourinary: no incontinence Musculoskeletal: Back pain, leg pain Psychiatric: normal mood/ affect Neurological: [denies weakness in extremities], [denies balance issues] Objective:: Physical Exam General: Alert and oriented x3, no acute distress, pleasant and cooperative, [on room air] Lungs: Resps E/U, Symmetrical chest expansion, Eyes: PERRL Musculoskeletal: Flexion and extension of lumbar spine somewhat guarded secondary to pain, deep tendon reflexes normal, strength in upper and lower extremities [5/5], lightly antalgic gait noted Neurological: speech clear, online marketing specialist equal, no gross sensory deficits Assessment:: Degenerative disc disease lumbar spine with lumbar radiculopathy degenerative disc disease cervical spinal cervical radiculopathy Plan:: We will refill his [place] 7.5 mg 1 p.o. 3 times daily will give him 2 months with medication. He can pick up operator the third month in the interim. We will see him back in 3 months reassess his symptoms at that time we will also start him on Lyrica 75 mg 1 p.o. twice daily we discussed the risk and benefits along with potential side effects. He is to call our office if he has any issues prior to his next appointment. Patient has been prescribed a controlled substance after being counseled on the medication, medication safety, and possible side effects. ROSEMARIE report has been obtained and reviewed prior to prescription and found to be appropriate. Opioid contract was reviewed and signed by the patient, and that they have agreed to all of the terms set forth by our compliance program. Dr. Martel has reviewed this note and agrees with this plan of care. This note was dictated using voice recognition software and may contain errors or omissions Pain Management Hx Components *Have you ever received a pneumonia vaccine?: Yes *Have you received a flu vaccine this season?: Yes - *Social History *Occupational Status:: employed, retired *Travel in the last 8 weeks: None
[2019-01-10 10:32] VITALS: BP 167/69; PULSE 86; RESP 18; O2SAT 98; BMI 30.9
== END ==
PROVIDERS: PCP Family Medicine; Visit Provider Clinical Nurse Specialist Family Health
DX: M51.16 Intervertebral disc disorders with radiculopathy, lumbar region (principal); M50.10 Cervical disc disorder with radiculopathy, unspecified cervical region
CPT/HCPCS: 99212

== ENCOUNTER 2019-01-11 09:52 | Outpatient (CLI) | payer MEDICARE, BC, SELFPAY ==
[2019-01-11 10:35] LABS: PHA INR Fingerstick 2.1 (0.9-1.1)
== END 2019-01-11 10:36 | disposition home or self-care (01) ==
PROVIDERS: PCP Family Medicine; Visit Provider Nurse Practitioner Family
DX: Z51.81 Encounter for therapeutic drug level monitoring (principal); Z79.01 Long term (current) use of anticoagulants; I48.91 Unspecified atrial fibrillation
CPT/HCPCS: 85610; 99211; G0463

== ENCOUNTER → 2019-02-14 08:55 | Outpatient (POV) | payer MEDICARE, BC, SELFPAY | PROVIDERS: Visit Provider Internal Medicine | DX: Z00.00 Encounter for general adult medical examination without abnormal findings (principal) ==

== ENCOUNTER 2019-02-22 09:50 | Outpatient (CLI) | payer MEDICARE, BC, SELFPAY ==
[2019-02-22 10:36] LABS: PHA INR Fingerstick 2.1 (0.9-1.1)
== END 2019-02-22 10:37 | disposition home or self-care (01) ==
LOC: ACC 09:51
PROVIDERS: PCP Nurse Practitioner Family; Visit Provider Nurse Practitioner Family
DX: Z51.81 Encounter for therapeutic drug level monitoring (principal); Z79.01 Long term (current) use of anticoagulants; I48.91 Unspecified atrial fibrillation
CPT/HCPCS: 85610; 99211; G0463

== ENCOUNTER → 2019-03-14 09:46 | Outpatient (CLI) | payer MEDICARE, BC, SELFPAY ==
[2019-03-14 10:45] LABS: Amphetamine/Metha Screen,Urine Negative ng/mL (<1000); Barbiturates Screen,Urine Negative ng/mL (<200); Benzodiazepines Screen,Urine Negative ng/mL (<200); Cannabinoid Screen,Urine Negative ng/mL (<50); Cocaine Screen,Urine Negative ng/mL (<300); Methadone Screen,Urine Negative ng/mL (<300); Opiate Screen,Urine Positive ng/mL (<300); Phencyclidine Screen,Urine Negative ng/mL (<25)
[2019-03-22 10:10] LABS: Codeine Negative (Cutoff=100); Hydrocodone Positive (.); Hydromorphone Positive (.); Morphine Negative (Cutoff=100)
[2019-03-22 12:19] LABS: Opiates Positive (.)
== END ==
PROVIDERS: Visit Provider Clinical Nurse Specialist Family Health
DX: Z79.899 Other long term (current) drug therapy (principal)
CPT/HCPCS: 80305; 80361; 80365; G0480

== ENCOUNTER 2019-04-05 09:53 | Outpatient (CLI) | payer MEDICARE, BC, SELFPAY ==
[2019-04-05 11:13] LABS: PHA INR Fingerstick 2.2 (0.9-1.1)
== END 2019-04-05 14:02 | disposition home or self-care (01) ==
LOC: ACC 09:54
PROVIDERS: PCP Nurse Practitioner Family; Visit Provider Nurse Practitioner Family
DX: Z51.81 Encounter for therapeutic drug level monitoring (principal); Z79.01 Long term (current) use of anticoagulants; I48.91 Unspecified atrial fibrillation
CPT/HCPCS: 85610; 99211; G0463

== ENCOUNTER → 2019-04-10 09:00 | Outpatient (POV) | payer MEDICARE, BC, SELFPAY ==
[2019-04-10 09:17] VITALS: BP 143/65; PULSE 83; RESP 18; O2SAT 98; BMI 29.9
--- NOTE | 2019-04-10 09:17 | HMH.PAINSOAP ---
[facility] Pain Management SOAP Note Subjective:: Patient is a pleasant 68-year-old white male who presents today for follow-up. Patient currently rates his pain a 9 out of 10 stating is a little higher due to the weather. Rosemarie #[id number] reviewed and appropriate. Patient was switched to Lyrica at his last visit and is done extremely well with it. We will increase it to Lyrica 75 mg 1 p.o. 3 times daily. Is also [place] 7.5 mg 1 p.o. 3 times daily. He denies side effects to his medication. Patient urine drug screens have been appropriate. ROS General: no recent weight change, no fever, no sleep disturbances Respiratory: no cough, no shortness of air, no recurring pulmonary infections Cardiovascular/Peripheral Vascular: No chest pain, No palpitations, no edema, no shortness of breath. Gastrointestinal: no new onset incontinence, normal bowel movements reported Genitourinary: no new onset incontinence Musculoskeletal: Back pain, leg pain Psychiatric: normal mood/ affect Neurological: [denies new onset weakness in extremities], [denies new onset balance issues] Objective:: Physical Exam General: Alert and oriented x3, no acute distress, pleasant and cooperative, [on room air] Lungs: Resps E/U, Symmetrical chest expansion, Eyes: PERRL Musculoskeletal: Flexion and extension of lumbar spine somewhat guarded secondary to pain, deep tendon reflexes normal, strength in upper and lower extremities [5/5], antalgic gait noted Neurological: speech clear, integration technician equal, no gross sensory deficits Assessment:: Degenerative disc disease lumbar spine with lumbar radiculopathy degenerative disc disease cervical spinal cervical radiculopathy Plan:: We will refill the [place] 7.5 mg 1 p.o. 3 times daily and given 2 months worth of medication we will increase his Lyrica to 75 mg 1 p.o. 3 times daily. Patient will be given 2 months of medication and see him back in 3 months. He can last picker 1 month in the interim. Patient's been instructed to call the office if he has any issues prior to his next appointment. Patient has been prescribed a controlled substance after being counseled on the medication, medication safety, and possible side effects. ROSEMARIE report has been obtained and reviewed prior to prescription and found to be appropriate. Opioid contract was reviewed and signed by the patient, and that they have agreed to all of the terms set forth by our compliance program. Dr. Martel has reviewed this note and agrees with this plan of care. This note was dictated using voice recognition software and may contain errors or omissions [facility] History I have reviewed the patient's past medical history: Yes Medical History: Reports:: Atrial Fibrillation, Diabetes Mellitus Type 2, Hyperlipidemia, Internal Pacemaker Denies:: Cancer, Diabetes Mellitus Type 1, MRSA, Seizures *Have you ever received a pneumonia vaccine?: Yes *Have you received a flu vaccine this season?: Yes Other Medical History: Denies: Blood Transfusion Reaction Other Surgeries: Yes: Cholecystectomy, Hernia Repair, Pacemaker, Sinus Surgery, Other (lumpectomy) Amputation: No Fractures: No - *Social History Smoking Status: Former smoker Alcohol Intake: never *Occupational Status:: other Housing: apartment Household Members: spouse *Travel in the last 8 weeks: None Family Hx:: Coronary Artery Disease, Diabetes, Heart Attack
--- NOTE | 2019-04-10 09:30 | P.CONS_ITS ---
[facility] Pain Management SOAP Note Subjective:: Patient is a pleasant 68-year-old white male who presents today for follow-up. Patient currently rates his pain a 9 out of 10 stating is a little higher due to the weather. Rosemarie #[id number] reviewed and appropriate. Patient was switched to Lyrica at his last visit and is done extremely well with it. We will increase it to Lyrica 75 mg 1 p.o. 3 times daily. Is also [place] 7.5 mg 1 p.o. 3 times daily. He denies side effects to his medication. Patient urine drug screens have been appropriate. ROS General: no recent weight change, no fever, no sleep disturbances Respiratory: no cough, no shortness of air, no recurring pulmonary infections Cardiovascular/Peripheral Vascular: No chest pain, No palpitations, no edema, no shortness of breath. Gastrointestinal: no new onset incontinence, normal bowel movements reported Genitourinary: no new onset incontinence Musculoskeletal: Back pain, leg pain Psychiatric: normal mood/ affect Neurological: [denies new onset weakness in extremities], [denies new onset balance issues] Objective:: Physical Exam General: Alert and oriented x3, no acute distress, pleasant and cooperative, [on room air] Lungs: Resps E/U, Symmetrical chest expansion, Eyes: PERRL Musculoskeletal: Flexion and extension of lumbar spine somewhat guarded secondary to pain, deep tendon reflexes normal, strength in upper and lower extremities [5/5], antalgic gait noted Neurological: speech clear, liquor blender equal, no gross sensory deficits Assessment:: Degenerative disc disease lumbar spine with lumbar radiculopathy degenerative disc disease cervical spinal cervical radiculopathy Plan:: We will refill the [place] 7.5 mg 1 p.o. 3 times daily and given 2 months worth of medication we will increase his Lyrica to 75 mg 1 p.o. 3 times daily. Patient will be given 2 months of medication and see him back in 3 months. He can case picker 1 month in the interim. Patient's been instructed to call the office if he has any issues prior to his next appointment. Patient has been prescribed a controlled substance after being counseled on the medication, medication safety, and possible side effects. ROSEMARIE report has been obtained and reviewed prior to prescription and found to be appropriate. Opioid contract was reviewed and signed by the patient, and that they have agreed to all of the terms set forth by our compliance program. Dr. Martel has reviewed this note and agrees with this plan of care. This note was dictated using voice recognition software and may contain errors or omissions [facility] History I have reviewed the patient's past medical history: Yes Medical History: Reports:: Atrial Fibrillation, Diabetes Mellitus Type 2, Hyperlipidemia, Internal Pacemaker Denies:: Cancer, Diabetes Mellitus Type 1, MRSA, Seizures *Have you ever received a pneumonia vaccine?: Yes *Have you received a flu vaccine this season?: Yes Other Medical History: Denies: Blood Transfusion Reaction Other Surgeries: Yes: Cholecystectomy, Hernia Repair, Pacemaker, Sinus Surgery, Other (lumpectomy) Amputation: No Fractures: No - *Social History Smoking Status: Former smoker Alcohol Intake: never *Occupational Status:: other Housing: apartment Household Members: spouse *Travel in the last 8 weeks: None Family Hx:: Coronary Artery Disease, Diabetes, Heart Attack
== END ==
PROVIDERS: PCP Family Medicine; Visit Provider Clinical Nurse Specialist Family Health
DX: M51.16 Intervertebral disc disorders with radiculopathy, lumbar region (principal); M50.10 Cervical disc disorder with radiculopathy, unspecified cervical region
CPT/HCPCS: 99212

== ENCOUNTER 2019-05-24 09:49 | Outpatient (CLI) | payer MEDICARE, BC, SELFPAY ==
[2019-05-24 15:14] LABS: PHA INR Fingerstick 2.2 (0.9-1.1)
== END 2019-05-24 15:19 | disposition home or self-care (01) ==
LOC: ACC 09:51
PROVIDERS: PCP Family Medicine; Visit Provider Nurse Practitioner Family
DX: Z51.81 Encounter for therapeutic drug level monitoring (principal); Z79.01 Long term (current) use of anticoagulants; I48.91 Unspecified atrial fibrillation
CPT/HCPCS: 85610; 99211; G0463

== ENCOUNTER → 2019-05-26 10:15 | Outpatient (CLI) | payer MEDICARE, BC, SELFPAY ==
--- NOTE | 2019-05-26 10:17 | CA_ITS ---
APPROVED REPORT Joint Maker Machine: Paz Barron RVT Laterality: Bilateral Study Quality: Good Indications: Near syncope Risk Factors Hypertension: Doppler Spectral Velocity Analysis ECA (R) 176.50/14.50 cm/s ECA (L) 135.30/14.20 cm/s dICA (R) 110.60/24.10 cm/s dICA (L) 105.50/29.60 cm/s Miguel Angel (R) 91.50/21.60 cm/s Miguel Angel (L) 117.80/29.30 cm/s pICA (R) 96.50/17.50 cm/s pICA (L) 88.60/21.10 cm/s dCCA (R) 127.30/15.00 cm/s dCCA (L) 108.20/18.90 cm/s pCCA (R) 121.00/18.90 cm/s pCCA (L) 116.20/18.20 cm/s Vert (R) 44.30/8.00 cm/s Vert (L) 51.30/8.50 cm/s ICA/CCA 0.87 ICA/CCA 1.09 Findings 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 Antegrade flow seen bilateral vertebral arteries. 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 Antegrade flow seen bilateral vertebral arteries. Electronically signed by : Wellington Aquino MD 05/26/2019 17:01:46
== END ==
PROVIDERS: PCP Family Medicine; Visit Provider Family Medicine
DX: R55 Syncope and collapse (principal)
CPT/HCPCS: 93880

== ENCOUNTER 2019-07-05 09:52 | Outpatient (CLI) | payer MEDICARE, BC, SELFPAY ==
[2019-07-05 11:17] LABS: PHA INR Fingerstick 1.8 (0.9-1.1)
== END 2019-07-05 11:27 | disposition home or self-care (01) ==
LOC: ACC 09:53
PROVIDERS: PCP Nurse Practitioner Family; Visit Provider Nurse Practitioner Family
DX: Z51.81 Encounter for therapeutic drug level monitoring (principal); Z79.01 Long term (current) use of anticoagulants; I48.91 Unspecified atrial fibrillation
CPT/HCPCS: 85610; 99211; G0463

== ENCOUNTER → 2019-07-10 09:34 | Outpatient (POV) | payer MEDICARE, BC, SELFPAY ==
[2019-07-10 09:54] VITALS: BP 171/77; PULSE 87; RESP 18; O2SAT 98; BMI 31.2
--- NOTE | 2019-07-10 09:56 | P.CONS_ITS ---
[facility] Pain Management SOAP Note Subjective:: He patient is a pleasant 68-year-old white male who presents today for follow- up. Patient is currently rating his pain a 7 out of 10 and overall doing well his Rosemarie #[id number] reviewed and appropriate. He is on Lyrica 75 mg 1 p.o. twice daily and [place] 7.5 mg 1 p.o. 3 times daily. He denies side effects and states it helps up to 80%. Patient is much more active due to the medication. His urine drug screens are appropriate. ROS General: no recent weight change, no fever, no sleep disturbances Respiratory: no cough, no shortness of air, no recurring pulmonary infections Cardiovascular/Peripheral Vascular: No chest pain, No palpitations, no edema, no shortness of breath. Gastrointestinal: no new onset incontinence, normal bowel movements reported Genitourinary: no new onset incontinence Musculoskeletal: Back pain, leg pain Psychiatric: normal mood/ affect Neurological: [denies new onset weakness in extremities], [denies new onset balance issues] Objective:: Physical Exam General: Alert and oriented x3, no acute distress, pleasant and cooperative, [on room air] Lungs: Resps E/U, Symmetrical chest expansion, Eyes: PERRL Musculoskeletal: Flexion and extension of lumbar spine somewhat guarded secondary to pain, deep tendon reflexes normal, strength in upper and lower extremities [5/5], [abnormal gait noted] Neurological: speech clear, foot setter equal, no gross sensory deficits Assessment:: Degenerative disc disease lumbar spine with lumbar radiculopathy, degenerative disc disease cervical spine with cervical radiculopathy Plan:: We will refill the patient's [place] 7.5 mg 1 p.o. 3 times daily and give him 2 months worth of medication along with his Lyrica. Patient will be given 2 months of medication and we will give him 1 month in the interim. We will see him back in 3 months reassess his symptoms at that time. He is been instructed to call the office if he has any issues prior to his next appointment. Patient has been prescribed a controlled substance after being counseled on the medication, medication safety, and possible side effects. ROSEMARIE report has been obtained and reviewed prior to prescription and found to be appropriate. Opioid contract was reviewed and signed by the patient, and that they have agreed to all of the terms set forth by our compliance program. Dr. Martel has reviewed this note and agrees with this plan of care. This note was dictated using voice recognition software and may contain errors or omissions [facility] History I have reviewed the patient's past medical history: Yes Medical History: Reports:: Atrial Fibrillation, Diabetes Mellitus Type 2, Hyperlipidemia, Internal Pacemaker Denies:: Cancer, Diabetes Mellitus Type 1, MRSA, Seizures *Have you ever received a pneumonia vaccine?: Yes *Have you received a flu vaccine this season?: Yes Other Medical History: Denies: Blood Transfusion Reaction Other Surgeries: Yes: Cholecystectomy, Hernia Repair, Pacemaker, Sinus Surgery, Other (lumpectomy) Amputation: No Fractures: No - *Social History Smoking Status: Former smoker Alcohol Intake: never *Occupational Status:: other Housing: apartment Household Members: spouse *Travel in the last 8 weeks: None Family Hx:: Coronary Artery Disease, Diabetes, Heart Attack
[2019-07-10 19:28] LABS: Amphetamine/Metha Screen,Urine Negative ng/ml (<1000)
[2019-07-10 19:29] LABS: Barbiturates Screen,Urine Negative ng/ml (<200)
[2019-07-10 19:30] LABS: Benzodiazepines Screen,Urine Negative ng/ml (<200); Cannabinoid Screen,Urine Negative ng/ml (<50)
[2019-07-10 19:31] LABS: Cocaine Screen,Urine Negative ng/ml (<300)
[2019-07-10 19:32] LABS: Methadone Screen,Urine Negative ng/ml (<300); Opiate Screen,Urine Positive ng/ml (<300)
[2019-07-10 19:33] LABS: Phencyclidine Screen,Urine Negative ng/ml (<25)
[2019-07-15 06:18] LABS: Codeine Negative (Cutoff=100); Hydrocodone Positive (.); Hydromorphone Positive (.); Morphine Negative (Cutoff=100)
[2019-07-15 20:41] LABS: Opiates Positive (.)
== END ==
PROVIDERS: PCP Family Medicine; Visit Provider Clinical Nurse Specialist Family Health
DX: M50.10 Cervical disc disorder with radiculopathy, unspecified cervical region (principal); M51.16 Intervertebral disc disorders with radiculopathy, lumbar region; Z79.891 Long term (current) use of opiate analgesic; Z79.899 Other long term (current) drug therapy; I48.91 Unspecified atrial fibrillation
CPT/HCPCS: 80305; 80361; 80365; 99212; G0480

== ENCOUNTER 2019-08-23 10:31 | Outpatient (CLI) | payer MEDICARE, BC, SELFPAY ==
[2019-08-23 13:49] LABS: PHA INR Fingerstick 1.9 (0.9-1.1)
== END 2019-08-23 13:51 | disposition home or self-care (01) ==
LOC: ACC 10:32
PROVIDERS: PCP Nurse Practitioner Family; Visit Provider Nurse Practitioner Family
DX: Z51.81 Encounter for therapeutic drug level monitoring (principal); Z79.01 Long term (current) use of anticoagulants; I48.91 Unspecified atrial fibrillation
CPT/HCPCS: 85610; 99211; G0463

== ENCOUNTER 2019-09-20 09:44 | Outpatient (CLI) | payer MEDICARE, BC, SELFPAY ==
[2019-09-20 15:51] LABS: PHA INR Fingerstick 2.4 (0.9-1.1)
== END 2019-09-20 16:08 | disposition home or self-care (01) ==
LOC: ACC 09:47
PROVIDERS: PCP Family Medicine; Visit Provider Nurse Practitioner Family
DX: Z51.81 Encounter for therapeutic drug level monitoring (principal); Z79.01 Long term (current) use of anticoagulants
CPT/HCPCS: 85610; 99211; G0463

== ENCOUNTER → 2019-10-09 10:39 | Outpatient (POV) | payer MEDICARE, BC, SELFPAY ==
[2019-10-09 10:55] VITALS: BP 168/73; PULSE 83; RESP 18; TEMP 36.8; O2SAT 99; BMI 30.6
--- NOTE | 2019-10-10 08:13 | P.CONS_ITS ---
[facility] Pain Management SOAP Note Subjective:: Patient is a pleasant 68-year-old white male who presents today for follow-up. Patient currently rating his pain today a 8 out of 10. Overall doing well. Rosemarie #[id number] reviewed appropriate. Urine drug screens have been appropriate. He is also on Lyrica 75 mg 1 p.o. twice daily and does well with this. He is on [place] 7.5 mg 1 p.o. 3 times daily he denies side effects to the medication states it helps up to 80%. ROS General: no recent weight change, no fever, no sleep disturbances Respiratory: no cough, no shortness of air, no recurring pulmonary infections Cardiovascular/Peripheral Vascular: No chest pain, No palpitations, no edema, no shortness of breath. Gastrointestinal: no new onset incontinence, normal bowel movements reported Genitourinary: no new onset incontinence Musculoskeletal: Back pain, leg pain Psychiatric: normal mood/ affect Neurological: [denies new onset weakness in extremities], [denies new onset balance issues] Objective:: Physical Exam General: Alert and oriented x3, no acute distress, pleasant and cooperative, [on room air] Lungs: Resps E/U, Symmetrical chest expansion, Eyes: PERRL Musculoskeletal: Flexion and extension of lumbar spine somewhat guarded secondary to pain, deep tendon reflexes normal, strength in upper and lower extremities [5/5], slightly antalgic gait noted Neurological: speech clear, director data processing equal, no gross sensory deficits Assessment:: Degenerative disc disease lumbar spine with lumbar radiculopathy Plan:: We will refill his [place] 7.5 mg 1 p.o. 3 times daily and Lyrica 75 mg 1 p.o. twice daily we will give him 2 months worth medication. See him back in 3 months he can pick 1 month up in the interim. He is been instructed to call the office if he has any issues prior to his next appointment. Patient has been prescribed a controlled substance after being counseled on the medication, medication safety, and possible side effects. ROSEMARIE report has been obtained and reviewed prior to prescription and found to be appropriate. Opioid contract was reviewed and signed by the patient, and that they have agreed to all of the terms set forth by our compliance program. Dr. Martel has reviewed this note and agrees with this plan of care. This note was dictated using voice recognition software and may contain errors or omissions [facility] History I have reviewed the patient's past medical history: Yes Medical History: Reports:: Atrial Fibrillation, Diabetes Mellitus Type 2, Hyperlipidemia, Internal Pacemaker Denies:: Cancer, Diabetes Mellitus Type 1, MRSA, Seizures *Have you ever received a pneumonia vaccine?: Yes *Have you received a flu vaccine this season?: Yes Other Medical History: Denies: Blood Transfusion Reaction Other Surgeries: Yes: Cholecystectomy, Hernia Repair, Pacemaker, Sinus Surgery, Other (lumpectomy) Amputation: No Fractures: No - *Social History Smoking Status: Former smoker Alcohol Intake: never *Occupational Status:: other Housing: apartment Household Members: spouse *Travel in the last 8 weeks: None Family Hx:: Coronary Artery Disease, Diabetes, Heart Attack
== END ==
PROVIDERS: PCP Family Medicine; Visit Provider Clinical Nurse Specialist Family Health
DX: M51.16 Intervertebral disc disorders with radiculopathy, lumbar region (principal)
CPT/HCPCS: 99212

== ENCOUNTER 2019-11-01 10:20 | Outpatient (CLI) | payer MEDICARE, BC, SELFPAY ==
[2019-11-01 11:29] LABS: PHA INR Fingerstick 2.4 (0.9-1.1)
== END 2019-11-01 11:32 | disposition home or self-care (01) ==
LOC: ACC 10:22
PROVIDERS: PCP Family Medicine; Visit Provider Nurse Practitioner Family
DX: Z51.81 Encounter for therapeutic drug level monitoring (principal); Z79.01 Long term (current) use of anticoagulants; I48.91 Unspecified atrial fibrillation
CPT/HCPCS: 85610; 99211; G0463

== ENCOUNTER 2019-12-13 09:49 | Outpatient (CLI) | payer MEDICARE, BC, SELFPAY ==
[2019-12-13 12:59] LABS: PHA INR Fingerstick 2.6 (0.9-1.1)
== END 2019-12-13 13:00 | disposition home or self-care (01) ==
LOC: ACC 09:51
PROVIDERS: PCP Family Medicine; Visit Provider Nurse Practitioner Family
DX: Z79.01 Long term (current) use of anticoagulants (principal)
CPT/HCPCS: 85610; 99211; G0463

== ENCOUNTER → 2020-01-11 10:00 | Outpatient (POV) | payer MEDICARE, BC, SELFPAY ==
[2020-01-11 10:36] VITALS: BP 140/72; PULSE 84; RESP 18; O2SAT 98; BMI 18.7
--- NOTE | 2020-01-11 11:26 | HMH.PAINSOAP ---
[facility] Pain Management SOAP Note Subjective:: Patient is a pleasant 69-year-old male who presents today for medication refills. He is being treated for chronic low back pain with lumbar radiculopathy symptoms. He is managed with [place] 7.5 mg 1 tablet p.o. 3 times daily. He denies any side effects to the medications. He does rate his pain an 8 out of 10 today. Patient says that the medication is working up to 60%, however, it is not lasting that long. He would like an increase in the amount of medication he takes. He says he does not want to change in the dose. He says the dose is working well for him. He also takes pregabalin 75 mg 1 tablet p.o. twice daily. Review of Systems General: No recent weight changes, no fever, no sleep disturbances Respiratory: No cough, no shortness of air, no recurring pulmonary infections Cardiovascular/peripheral vascular: No chest pain, no palpitations, no edema, no shortness of breath Gastrointestinal: No new onset incontinence, normal bowel movements reported Genitourinary: No new onset incontinence Musculoskeletal: Low back pain Psychiatric: Normal mood/affect Neurological: [Denies weakness in extremities], [denies balance issues] Objective:: Physical exam General: Alert and oriented x3, no acute distress, pleasant and cooperative, [on room air] Lungs: Respirations even and unlabored, symmetrical chest expansion Eyes: PERRL Musculoskeletal: Flexion and extension of lumbar spine somewhat guarded secondary to pain, deep tendon reflexes normal, strength in upper and lower extremities [5/5], [abnormal gait noted] Neurological: Speech clear, ethanol operations manager equal, no gross sensory deficit Assessment:: Degenerative disc disease lumbar spine with lumbar radiculopathy symptoms Plan:: We will increase the patient's [place] to 7.5 mg 1 tablet p.o. 4 times daily. The medication is working, however, is wearing off too soon. We also refill his pregabalin 75 mg 1 tablet p.o. twice daily. We will give the patient 2 months worth of medication and he can picker tender helper the third month in the interim. Patient has been instructed to contact clinic if he has any concerns before his next appointment. The patient and I specifically discussed risk factors for COVID19. These risks include, but are not limited to age greater than 60, heart or lung disease, diabetes, immunosuppression, and travel. We also discussed NSAIDs may worsen COVID19 infection or symptoms. Patient should not use NSAIDs to treat COVID19 signs or symptoms. Patient was also informed that any type of corticosteroid of any form (oral or injection) will decrease the patient's immune system response and may increase the likelihood of COVID19 infection [address] symptoms[address] Martel has reviewed this note and agrees with this plan of care. This note was dictated using voice recognition software and make contain errors or omissions. [facility] History I have reviewed the patient's past medical history: Yes Medical History: Reports:: Atrial Fibrillation, Diabetes Mellitus Type 2, Hyperlipidemia, Internal Pacemaker Denies:: Cancer, Diabetes Mellitus Type 1, MRSA, Seizures *Have you ever received a pneumonia vaccine?: Yes *Have you received a flu vaccine this season?: Yes Other Medical History: Denies: Blood Transfusion Reaction Other Surgeries: Yes: Cholecystectomy, Hernia Repair, Pacemaker, Sinus Surgery, Other (lumpectomy) Amputation: No Fractures: No - *Social History Smoking Status: Former smoker Alcohol Intake: never *Occupational Status:: other Housing: apartment Household Members: spouse *Travel in the last 8 weeks: None Family Hx:: Coronary Artery Disease, Diabetes, Heart Attack
== END ==
PROVIDERS: PCP Family Medicine; Visit Provider Clinical Nurse Specialist Family Health
DX: M51.16 Intervertebral disc disorders with radiculopathy, lumbar region (principal)
CPT/HCPCS: 99212

== ENCOUNTER 2020-01-24 09:50 | Outpatient (CLI) | payer MEDICARE, BC, SELFPAY ==
[2020-01-24 10:32] LABS: PHA INR Fingerstick 2.4 (0.9-1.1)
== END 2020-01-24 10:34 | disposition home or self-care (01) ==
LOC: ACC 09:53
PROVIDERS: PCP Family Medicine; Visit Provider Nurse Practitioner Family
DX: Z51.81 Encounter for therapeutic drug level monitoring (principal); Z79.01 Long term (current) use of anticoagulants; I48.91 Unspecified atrial fibrillation
CPT/HCPCS: 85610; 99211; G0463

== ENCOUNTER 2020-03-06 09:48 | Outpatient (CLI) | payer MEDICARE, BC, SELFPAY ==
[2020-03-06 11:19] LABS: PHA INR Fingerstick 2.2 (0.9-1.1)
== END 2020-03-06 11:21 | disposition home or self-care (01) ==
LOC: ACC 09:50
PROVIDERS: PCP Family Medicine; Visit Provider Nurse Practitioner Family
DX: Z51.81 Encounter for therapeutic drug level monitoring (principal); Z79.01 Long term (current) use of anticoagulants; I48.91 Unspecified atrial fibrillation
CPT/HCPCS: 85610; 99211; G0463

== ENCOUNTER → 2020-03-28 12:47 | Outpatient (CLI) | payer MEDICARE, BC, SELFPAY | PROVIDERS: PCP Family Medicine; Visit Provider Internal Medicine Pulmonary Disease | DX: R06.09 Other forms of dyspnea (principal) | CPT/HCPCS: 94060; 94726; 94729 ==

== ENCOUNTER → 2020-04-10 08:58 | Outpatient (CLI) | payer MEDICARE, BC, SELFPAY ==
--- NOTE | 2020-04-10 09:05 | XR_ITS ---
PROCEDURE: XR HAND LT MIN 3V CLINICAL INDICATION: LT WRIST INJURY, ATTN 4TH MP JOINT Pain and swelling COMPARISON: No exams were available for comparison FINDINGS: No fracture or dislocation. No lytic or blastic change. There is normal mineralization. Mild osteoarthritic changes are present at the 1st metacarpophalangeal joint. There is some minimal calcification along the ulnar aspect of the 3rd metacarpophalangeal joint possibly due to an avulsion injury. This is only seen in the AP view. No other significant anomalies are evident. There is a small metallic density at the thenar eminence. Other findings:None. IMPRESSION: Possible small avulsion injury at the 3rd metacarpophalangeal joint alongthe ulnar aspect with mild osteoarthritic changes Dictated by: Wellington Aquino MD 04/10/2020 18:35 Wellington Aquino MD in [place] 04/10/2020 18:35
== END ==
PROVIDERS: PCP Family Medicine; Visit Provider Family Medicine
DX: S69.92XD Unspecified injury of left wrist, hand and finger(s), subsequent encounter (principal)
CPT/HCPCS: 73130

== ENCOUNTER → 2020-04-11 10:04 | Outpatient (POV) | payer MEDICARE, BC, SELFPAY ==
[2020-04-11 10:26] VITALS: BP 128/88; PULSE 74; RESP 18; TEMP 36.3; O2SAT 98; BMI 31.2
--- NOTE | 2020-04-11 10:47 | HMH.PAINSOAP ---
[facility] Pain Management SOAP Note Subjective:: Patient is a 69-year-old white male who presents today for medication refills. He has been treated for chronic low back pain with lumbar radiculopathy symptoms. Patient rates his pain an 8 out of 10 today. He says his pain is somewhat increased because he was unable to remember to call and request medication refills. He is managed with [place] 7.5 mg 1 tablet p.o. 3 times daily. He denies any side effects to the medication. He did get about 60% relief with his medicines. Otherwise, he is doing well. Review of Systems General: No recent weight changes, no fever, no sleep disturbances Respiratory: No cough, no shortness of air, no recurring pulmonary infections Cardiovascular/peripheral vascular: No chest pain, no palpitations, no edema, no shortness of breath Gastrointestinal: No new onset incontinence, normal bowel movements reported Genitourinary: No new onset incontinence Musculoskeletal: Low back pain Psychiatric: Normal mood/affect Neurological: [Denies weakness in extremities], [denies balance issues] Objective:: Physical exam General: Alert and oriented x3, no acute distress, pleasant and cooperative, [on room air] Lungs: Respirations even and unlabored, symmetrical chest expansion Eyes: PERRL Musculoskeletal: Flexion and extension of lumbar spine somewhat guarded secondary to pain, deep tendon reflexes normal, strength in upper and lower extremities [5/5], [abnormal gait noted] Neurological: Speech clear, jewelry enameler equal, no gross sensory deficit Assessment:: Degenerative disc disease lumbar spine with lumbar radiculopathy symptoms Plan:: We will refill the patient's [place] 7.5 mg 1 tablet p.o. 4 times daily. We will give him 3 months worth medication. We will see him back in the clinic afterwards to reassess his symptoms. He has been instructed to contact clinic if he has any concerns before his next appointment. The patient and I specifically discussed risk factors for COVID19. These risks include, but are not limited to age greater than 60, heart or lung disease, diabetes, immunosuppression, and travel. We also discussed NSAIDs may worsen COVID19 infection or symptoms. Patient should not use NSAIDs to treat COVID19 signs or symptoms. Patient was also informed that any type of corticosteroid of any form (oral or injection) will decrease the patient's immune system response and may increase the likelihood of COVID19 infection [address] symptoms[address] Martel has reviewed this note and agrees with this plan of care. This note was dictated using voice recognition software and make contain errors or omissions. Patient has been prescribed a controlled substance after being counseled on the medication, medication safety, and possible side effects. ROSEMARIE report has been obtained and reviewed prior to prescription and found to be appropriate. Opioid contract was reviewed and signed by the patient, and that they have agreed to all of the terms set forth by our compliance program. [facility] History I have reviewed the patient's past medical history: Yes Medical History: Reports:: Atrial Fibrillation, Diabetes Mellitus Type 2, Hyperlipidemia, Internal Pacemaker Denies:: Cancer, Diabetes Mellitus Type 1, MRSA, Seizures *Have you ever received a pneumonia vaccine?: Yes *Have you received a flu vaccine this season?: Yes Other Medical History: Denies: Blood Transfusion Reaction Other Surgeries: Yes: Cholecystectomy, Hernia Repair, Pacemaker, Sinus Surgery, Other (lumpectomy) Amputation: No Fractures: No - *Social History Smoking Status: Former smoker Alcohol Intake: never *Occupational Status:: other Housing: apartment Household Members: spouse *Travel in the last 8 weeks: None Family Hx:: Coronary Artery Disease, Diabetes, Heart Attack
== END ==
PROVIDERS: PCP Family Medicine; Visit Provider Clinical Nurse Specialist Family Health
DX: M51.16 Intervertebral disc disorders with radiculopathy, lumbar region (principal)
CPT/HCPCS: 99212

== ENCOUNTER 2020-04-19 10:20 | Outpatient (CLI) | payer MEDICARE, BC, SELFPAY ==
[2020-04-19 11:16] LABS: PHA INR Fingerstick 2.1 (0.9-1.1)
== END 2020-04-19 11:59 | disposition home or self-care (01) ==
LOC: ACC 10:21
PROVIDERS: PCP Nurse Practitioner Family; Visit Provider Nurse Practitioner Family
DX: Z51.81 Encounter for therapeutic drug level monitoring (principal); Z79.01 Long term (current) use of anticoagulants; I48.91 Unspecified atrial fibrillation
CPT/HCPCS: 85610; 99211; G0463

== ENCOUNTER 2020-05-26 00:09 | Emergency (ER) | payer MEDICARE, BC, SELFPAY ==
[2020-05-26 00:10] VITALS: BP 183/86; PULSE 86; RESP 16; TEMP 36.6; O2SAT 97; BMI 30.6
[2020-05-26 00:28] VITALS: BMI 29.8
[2020-05-26 00:30] VITALS: BP 167/98; PULSE 81; RESP 15; O2SAT 96
--- NOTE | 2020-05-26 00:30 | XR_ITS ---
PROCEDURE: XR CHEST 2V Referring Doctor: Truong Rodriguez Patient Age:69Y CLINICAL HISTORY: weakness of report severe hypertension. Nonsmoker. Pacemaker 2012 COMPARISON: CR CXR1 CHEST-PORTABLE from 12/31/2012 CR CXR CHEST(2 VIEWS-NOT PORTABLE) from 08/05/[address] [facility] [address] CHEST W/O CONTRAST from 10/22/2015 CR CXR CHEST(2 VIEWS-NOT PORTABLE) from 01/15/2016 FINDINGS: PA and lateral chest performed today. Pacemaker overlies the left chest with atrial and ventricular leads appearing stable, and intact. The cardiomediastinal silhouette and pulmonary vascularity are within normal limits. The lungs are clear without infiltrates, suspicious nodules, or pleural effusions. No acute bony abnormalities. Mild degenerative changes T-spine appear stable IMPRESSION: Stable chest with nothing acute.. Dictated by: Herbert Parsons MD 05/26/2020 15:40 Herbert Parsons MD in [place] 05/26/2020 15:40
--- NOTE | 2020-05-26 00:38 | PC.NURSE ---
pt to RAD
[2020-05-26 00:44] LABS: Chloride 95 mmol/L (98-107); Potassium 4.4 mmoL/L (3.5-5.1); Sodium 132 mmol/L (136-145)
[2020-05-26 00:45] LABS: Basophils # 0.1 K/mm3 (0-0.2); Basophils % 0.8 % (0.1-2.0); Eosinophils # 0.1 K/mm3 (0.0-0.4); Eosinophils % 1.1 % (0.1-12.0); Hematocrit 47.8 % (42.0-52.0); Hemoglobin 16.3 g/dL (14.1-18.0); Lymphocytes # 2.8 K/mm3 (0.7-4.5); Lymphocytes % 34.2 % (10-50); Mean Corpuscular HGB Conc 34.1 g/dL (31.8-35.4); Mean Corpuscular Hemoglobin 30.4 pg (27.0-31.2); Mean Corpuscular Volume 89.3 fl (80-94); Mean Platelet Volume 10.9 fl (7.4-10.4); Monocytes # 0.5 K/mm3 (0.1-1.0); Monocytes % 5.7 % (1.7-9.3); Neutrophils # 4.8 K/mm3 (1.8-7.8); Neutrophils % 58.1 % (37.0-80.0); Platelet Count 189 K/mm3 (142-424); Red Blood Count 5.35 M/mm3 (4.60-6.20); Red Cell Distribution Width 13.2 % (11.5-17.5); White Blood Count 8.2 K/mm3 (4.8-10.8)
[2020-05-26 00:46] LABS: Bilirubin,Unconjugated 0.4 mg/dL (0.0-1.1); Blood Urea Nitrogen 21 mg/dl (9-20); Creatinine Clearance Estimated 113 mL/min (50-200); Estimated Glomerular Filt Rate 84 ml/min (>60); GFR (African American) 102 ML/MIN (>60)
[2020-05-26 00:47] LABS: Acetone, Serum (Rapid) None Detected (None Detect); Alanine Aminotransferase 55 U/L (12-78); Albumin Level 4.9 g/dl (3.5-5.0); Alkaline Phosphatase 46 U/L (38-126); Anion Gap 14.4 mEq/L (5-15); Aspartate Amino Transferase 46 U/L (17-59); Bilirubin,Direct 0.4 mg/dl (0.0-0.4); Bilirubin,Indirect 0.3 mg/dL (0.0-0.9); Bilirubin,Total 0.7 mg/dl (0.2-1.3); Carbon Dioxide 27 mmol/L (22.0-30.0); Total Protein,Serum 8.6 g/dl (6.3-8.2)
[2020-05-26 00:49] LABS: Glucose 562 mg/dl (74-100)
--- NOTE | 2020-05-26 00:49 | PC.NURSE ---
critical glucose and calcium reported to
[2020-05-26 00:51] LABS: INR 2.51 (0.9-1.1); Prothrombin Time 25.6 seconds (9.4-11.8)
[2020-05-26 00:52] LABS: C-Reactive Protein 2.6 mg/L (0-4)
[2020-05-26 00:57] LABS: Hemoglobin A1C 9.5 % (4.0-6.0)
[2020-05-26 01:10] VITALS: BP 158/77; PULSE 80; RESP 16; O2SAT 96
[2020-05-26 01:10] LABS: Troponin I < 0.01 ng/ml (0.00-0.034)
[2020-05-26 01:13] LABS: Erythrocyte Sedimentation Rate 10 mm/hr (0-20)
[2020-05-26 01:54] LABS: Microscopic, Urine URINE MICROSCOPIC (MICROSCOPIC)
[2020-05-26 01:55] LABS: Appearance,Urine CLEAR (Clear); Bilirubin,Urine Negative (Negative); Blood, Urine Negative (Negative); Color,Urine YELLOW (Yellow); Glucose,Urine (UA) 3+ (Negative); Ketones,Urine Negative (Negative); Leukocyte Esterase,Urine Negative (Negative); Nitrate,Urine Negative (Negative); Protein,Urine Negative (Negative); Urobilinogen,Urine 0.2 EU/dl (0.2)
[2020-05-26 02:00] VITALS: BP 157/81; PULSE 81; RESP 16; O2SAT 97
[2020-05-26 02:30] VITALS: BP 163/75; PULSE 86; RESP 15; O2SAT 99
--- NOTE | 2020-05-26 02:45 | HMH.EDGENADL ---
ED Disposition Clinical Impression: Hyperglycemia without ketosis Diabetes mellitus Qualifiers: Diabetes mellitus type: type 2 Diabetes mellitus care home insulin use: unspecified care home insulin use status Diabetes mellitus complication status: with other specified complication Qualified Code(s): E11.69 - Type 2 diabetes mellitus with other specified complication Disposition: Home, Self-Care Condition on Discharge: Good Instructions: DI for Hyperglycemia -- Adult Additional Instructions: increase metformin and keep appt with pcp Referrals: Francisco Kuhn MD [Primary Care Provider] - - Critical Care Critical Care Time: No Attestation: On 05/26/20, the high probability of a clinically significant, sudden or life threatening deterioration of the following system(s) required my full and direct attention, intervention and personal management. The time I documented below is in addition to time spent performing reported procedures but includes the following listed in this critical care notation. Medical Decision Making - Medical Records Medical records reviewed: Yes: I reviewed the patient's medical records. - Nicolas Inquiry Pt receiving controlled substance: No Vital Signs: 05/26/20 00:10 05/26/20 00:30 05/26/20 01:10 Temperature 97.9 F Temperature Source Oral Pulse Rate [Left Radial] 86 81 80 Respiratory Rate 16 15 16 Blood Pressure [Right Arm] 183/86 H 167/98 H 158/77 H Blood Pressure Mean [Right Arm] 118 121 104 Blood Pressure Source [Right Arm] Automatic Cuff Automatic Cuff Automatic Cuff Blood Pressure Position [Right Arm] Sitting Sitting Sitting 02 Sat by Pulse Oximetry 97 96 96 Oxygen Delivery Method Room Air Room Air Room Air 05/26/20 02:00 05/26/20 02:30 Temperature Temperature Source Pulse Rate [Left Radial] 81 86 Respiratory Rate 16 15 Blood Pressure [Right Arm] 157/81 H 163/75 H Blood Pressure Mean [Right Arm] 106 104 Blood Pressure Source [Right Arm] Automatic Cuff Automatic Cuff Blood Pressure Position [Right Arm] Sitting Sitting 02 Sat by Pulse Oximetry 97 99 Oxygen Delivery Method Room Air Room Air - Lab Data Lab results reviewed: Yes: I reviewed the patient's lab results. Lab Results 05/26/20 00:27: WBC 8.2, RBC 5.35, Hgb 16.3, Hct 47.8, MCV 89.3, MCH 30.4, MCHC 34.1, RDW 13.2, Plt Count 189, MPV 10.9 H, Neut % (Auto) 58.1, Lymph % (Auto) 34.2, Jackson % (Auto) 5.7, Eos % (Auto) 1.1, Baso % (Auto) 0.8, Neut # (Auto) 4.8, Lymph # (Auto) 2.8, Jackson # (Auto) 0.5, Eos # (Auto) 0.1, Baso # (Auto) 0.1, ESR 10 05/26/20 00:27: Sodium 132 L, Potassium 4.4, Chloride 95 L, Carbon Dioxide 27, Anion Gap 14.4, BUN 21 H, Creatinine 0.90, Estimated Creat Clear 113, Estimated GFR 84, Est GFR ( Amer) 102, Glucose 562 H*, Calcium 11.0 H, Total Bilirubin 0.7, Direct Bilirubin 0.4, Conjugated Bilirubin 0.0, Indirect Bilirubin 0.3, Unconjugated Bilirubin 0.4, AST 46, ALT 55, Alkaline Phosphatase 46, Troponin I < 0.01, C-Reactive Protein 2.6, Total Protein 8.6 H, Albumin 4.9, Acetone Level None detected 05/26/20 00:27: Hemoglobin A1c 9.5 H 05/26/20 00:27: PT 25.6 H, INR 2.51 H 05/26/20 01:50: Urine Color Yellow, Urine Appearance Clear, Urine pH 7.0, Ur Specific [place] 1.020, Urine Protein Negative, Urine Glucose (UA) 3+, Urine Ketones Negative, Urine Blood Negative, Urine Nitrate Negative, Urine Bilirubin Negative, Urine Urobilinogen 0.2, Ur Leukocyte Esterase Negative, Ur Squamous Epith Cells 3-5, Ur Renal Epithelial Cell 3-5 Result diagrams: 05/26/20 00:27 05/26/20 00:27 Orders (Tests/Meds): ED MEDICATIONS Generic Name Dose Route Start Last Admin Trade Name Freq PRN Reason Stop Dose Admin Lactated Ringer's 1,000 mls @ 999 mls/hr 05/26/20 00:30 05/26/20 00:32 Lactated Ringer's 1000 Ml Bag IV 05/26/20 01:30 999 mls/hr .Q1H1M SHAUNNA Administration Lactated Ringer's 1,000 mls @ 999 mls/hr 05/26/20 02:15 05/26/20 02:12 Lactated Ringer's 1000 Ml Bag IV 05/26/
[2020-05-26 03:00] VITALS: BP 160/80; PULSE 80; RESP 15; TEMP 36.7; O2SAT 98
[2020-05-27 23:09] LABS: POC Glucose,Bedside 428 (70-110)
[2020-07-02 13:07] LABS: POC Glucose,Bedside 485 (70-110)
== END 2020-05-26 03:09 | disposition home or self-care (01) ==
PROVIDERS: Emergency Provider Emergency Medicine; PCP Family Medicine
DX: E11.65 Type 2 diabetes mellitus with hyperglycemia (principal); E78.5 Hyperlipidemia, unspecified; Z79.01 Long term (current) use of anticoagulants; Z95.0 Presence of cardiac pacemaker; Z87.891 Personal history of nicotine dependence; Z79.899 Other long term (current) drug therapy
CPT/HCPCS: 71046; 80048; 80076; 81001; 82009; 82962; 83036; 84484; 85025; 85610; 85651; 86140; 96365; 96366; 96375; 99284

== ENCOUNTER 2020-05-28 08:21 | Outpatient (CLI) | payer MEDICARE, BC, SELFPAY | END 2020-05-28 13:37 | disposition home or self-care (01) | LOC: ACC 08:23 | PROVIDERS: Nurse Practitioner Family; PCP Emergency Medicine; Visit Provider Emergency Medicine | DX: Z51.81 Encounter for therapeutic drug level monitoring (principal); Z79.01 Long term (current) use of anticoagulants; I48.91 Unspecified atrial fibrillation | CPT/HCPCS: 85610; 99211; G0463 ==

== ENCOUNTER → 2020-07-11 10:07 | Outpatient (POV) | payer MEDICARE, BC, SELFPAY ==
--- NOTE | 2020-07-11 10:52 | HMH.PAINSOAP ---
[facility] Pain Management SOAP Note Subjective:: Patient is a 69-year-old white male who presents today for follow-up of medication refills. He has been treated for chronic low back pain secondary to degenerative disc disease lumbar spine with lumbar radiculopathy symptoms. Patient rates his pain an 8 out of 10 today. It is managed with [place] 7.5 mg 1 tablet p.o. 4 times daily. He was increased at his last visit. He denies any side effects to the medication. His Rosemarie and drug screens have been appropriate. He will undergo a drug screen today. Review of Systems General: No recent weight changes, no fever, no sleep disturbances Respiratory: No cough, no shortness of air, no recurring pulmonary infections Cardiovascular/peripheral vascular: No chest pain, no palpitations, no edema, no shortness of breath Gastrointestinal: No new onset incontinence, normal bowel movements reported Genitourinary: No new onset incontinence Musculoskeletal: Chronic low back pain Psychiatric: Normal mood/affect Neurological: [Denies weakness in extremities], [denies balance issues] Objective:: Physical exam General: Alert and oriented x3, no acute distress, pleasant and cooperative, [on room air] Lungs: Respirations even and unlabored, symmetrical chest expansion Eyes: PERRL Musculoskeletal: Flexion and extension of lumbar spine somewhat guarded secondary to pain, deep tendon reflexes normal, strength in upper and lower extremities [5/5], [abnormal gait noted] Neurological: Speech clear, development educator equal, no gross sensory deficit Assessment:: Degenerative disc disease lumbar spine with lumbar radiculopathy symptoms Plan:: We will refill the patient's [place] 7.5 mg 1 tablet p.o. 4 times daily. We will give him 2 months of medication and he can call the clinic for his third month in the interim. Patient has been instructed to contact clinic if he has any concerns before his next appointment. The patient and I specifically discussed risk factors for COVID19. These risks include, but are not limited to age greater than 60, heart or lung disease, diabetes, immunosuppression, and travel. We also discussed NSAIDs may worsen COVID19 infection or symptoms. Patient should not use NSAIDs to treat COVID19 signs or symptoms. Patient was also informed that any type of corticosteroid of any form (oral or injection) will decrease the patient's immune system response and may increase the likelihood of COVID19 infection and symptoms[address] Martel has reviewed this note and agrees with this plan of care. This note was dictated using voice recognition software and make contain errors or omissions. Patient has been prescribed a controlled substance after being counseled on the medication, medication safety, and possible side effects. ROSEMARIE report has been obtained and reviewed prior to prescription and found to be appropriate. Opioid contract was reviewed and signed by the patient, and that they have agreed to all of the terms set forth by our compliance program. [facility] History I have reviewed the patient's past medical history: Yes Medical History: Reports:: Atrial Fibrillation, Diabetes Mellitus Type 2, Hyperlipidemia, Internal Pacemaker Denies:: Cancer, Diabetes Mellitus Type 1, MRSA, Seizures *Have you ever received a pneumonia vaccine?: Yes *Have you received a flu vaccine this season?: No Other Medical History: Denies: Blood Transfusion Reaction Other Surgeries: Yes: Cholecystectomy, Hernia Repair, Pacemaker, Sinus Surgery, Other (lumpectomy) Amputation: No Fractures: No - *Social History Smoking Status: Former smoker Alcohol Intake: never *Occupational Status:: other Housing: apartment Household Members: spouse *Travel in the last 8 weeks: None Family Hx:: Coronary Artery Disease, Diabetes, Heart Attack
[2020-07-11 11:25] VITALS: BP 155/72; PULSE 85; RESP 18; O2SAT 98; BMI 30.6
== END ==
PROVIDERS: Visit Provider Clinical Nurse Specialist Family Health
DX: M51.16 Intervertebral disc disorders with radiculopathy, lumbar region (principal)
CPT/HCPCS: 99212; G0463

== ENCOUNTER 2020-07-17 09:54 | Outpatient (CLI) | payer MEDICARE, BC, SELFPAY ==
[2020-07-17 11:32] LABS: PHA INR Fingerstick 2.1 (0.9-1.1)
== END 2020-07-17 11:37 | disposition home or self-care (01) ==
LOC: ACC 09:55
PROVIDERS: PCP Family Medicine; Visit Provider Nurse Practitioner Family
DX: Z51.81 Encounter for therapeutic drug level monitoring (principal); Z79.01 Long term (current) use of anticoagulants; I48.91 Unspecified atrial fibrillation
CPT/HCPCS: 85610; 99211; G0463

== ENCOUNTER 2020-08-26 09:46 | Outpatient (CLI) | payer MEDICARE, BC, SELFPAY | END 2020-08-26 11:43 | disposition home or self-care (01) | LOC: ACC 09:47 | PROVIDERS: PCP Family Medicine; Visit Provider Nurse Practitioner Family | DX: Z51.81 Encounter for therapeutic drug level monitoring (principal); Z79.01 Long term (current) use of anticoagulants; I48.91 Unspecified atrial fibrillation | CPT/HCPCS: 85610; 99211; G0463 ==

== ENCOUNTER 2020-10-09 09:46 | Outpatient (CLI) | payer MEDICARE, BC, SELFPAY ==
[2020-10-09 10:45] LABS: PHA INR Fingerstick 2.1 (0.9-1.1)
== END 2020-10-09 11:28 | disposition home or self-care (01) ==
LOC: ACC 09:47
PROVIDERS: PCP Family Medicine; Visit Provider Nurse Practitioner Family
DX: Z51.81 Encounter for therapeutic drug level monitoring (principal); Z79.01 Long term (current) use of anticoagulants; I48.91 Unspecified atrial fibrillation
CPT/HCPCS: 85610; 99211; G0463

== ENCOUNTER → 2020-10-10 09:29 | Outpatient (POV) | payer MEDICARE, BC, SELFPAY ==
[2020-10-10 10:02] VITALS: BP 140/71; PULSE 65; RESP 18; O2SAT 98; BMI 30.6
--- NOTE | 2020-10-10 10:03 | P.CONS_ITS ---
[facility] Pain Management SOAP Note Subjective:: Patient is a 69-year-old white male who presents today for follow-up and for medication refills. He is being treated for degenerative disc disease lumbar spine with lumbar radiculopathy symptoms. He does rate his pain an 8 out of 10 today. He is managed with [place] 7.5 mg 1 tablet p.o. 4 times daily. He denies any side effects to the medication. Patient's Rosemarie #[id number] has been reviewed and is appropriate. Morphine equivalent is 30. Drug screens are appropriate. He says he is getting about 60% relief with his medication regimen. He does continue with home stretching. Review of Systems General: No recent weight changes, no fever, no sleep disturbances Respiratory: No cough, no shortness of air, no recurring pulmonary infections Cardiovascular/peripheral vascular: No chest pain, no palpitations, no edema, no shortness of breath Gastrointestinal: No new onset incontinence, normal bowel movements reported Genitourinary: No new onset incontinence Musculoskeletal: Low back pain Psychiatric: Normal mood/affect Neurological: [Denies weakness in extremities], [denies balance issues] Objective:: Physical exam General: Alert and oriented x3, no acute distress, pleasant and cooperative, [on room air] Lungs: Respirations even and unlabored, symmetrical chest expansion Eyes: PERRL Musculoskeletal: Flexion and extension of lumbar spine somewhat guarded secondary to pain, deep tendon reflexes normal, strength in upper and lower extremities [5/5], [abnormal gait noted] Neurological: Speech clear, clamshell engineer equal, no gross sensory deficit Assessment:: Degenerative disc disease lumbar spine with lumbar radiculopathy symptoms Plan:: We will refill the patient's [place] 7.5 mg 1 tablet p.o. 4 times daily and Lyrica 75 mg 1 tablet p.o. twice daily. 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 Patient has been prescribed a controlled substance after being counseled on the medication, medication safety, and possible side effects. ROSEMARIE report has been obtained and reviewed prior to prescription and found to be appropriate. Opioid contract was reviewed and signed by the patient, and that they have agreed to all of the terms set forth by our compliance program. Patient has been instructed to contact the clinic with any concerns before the next appointment. Dr. Martel has reviewed this note and agrees with this plan of care. This note was dictated using voice recognition software and make contain errors or omissions. [facility] History I have reviewed the patient's past medical history: Yes Medical History: Reports:: Atrial Fibrillation, Diabetes Mellitus Type 2, Hyperlipidemia, Internal Pacemaker Denies:: Cancer, Diabetes Mellitus Type 1, MRSA, Seizures *Have you ever received a pneumonia vaccine?: Yes *Have you received a flu vaccine this season?: Yes Other Medical History: Denies: Blood Transfusion Reaction Other Surgeries: Yes: Cholecystectomy, Hernia Repair, Pacemaker, Sinus Surgery, Other (lumpectomy) Amputation: No Fractures: No - *Social History Smoking Status: Former smoker Alcohol Intake: never *Occupational Status:: employed Housing: apartment Household Members: spouse *Travel in the last 8 weeks: None Family Hx:: Coronary Artery Disease, Diabetes, Heart Attack
== END ==
PROVIDERS: Visit Provider Clinical Nurse Specialist Family Health
DX: M51.16 Intervertebral disc disorders with radiculopathy, lumbar region (principal)
CPT/HCPCS: 99212; G0463

== ENCOUNTER 2020-11-20 09:52 | Outpatient (CLI) | payer MEDICARE, BC, SELFPAY ==
[2020-11-20 13:12] LABS: PHA INR Fingerstick 2.3 (0.9-1.1)
== END 2020-11-20 13:31 | disposition home or self-care (01) ==
PROVIDERS: PCP Nurse Practitioner Family; Visit Provider Nurse Practitioner Family
DX: Z51.81 Encounter for therapeutic drug level monitoring (principal); Z79.01 Long term (current) use of anticoagulants; I48.91 Unspecified atrial fibrillation
CPT/HCPCS: 85610; 99211; G0463

== ENCOUNTER → 2020-11-21 09:01 | Outpatient (POV) | payer MEDICARE, BC, SELFPAY ==
[2020-11-21 09:06] VITALS: BP 168/67; PULSE 89; RESP 18; O2SAT 97; BMI 30.6
--- NOTE | 2020-11-21 10:50 | HMH.PAINSOAP ---
[facility] Pain Management SOAP Note Subjective:: Patient is a pleasant 69-year-old white male who presents today for follow-up and for medication refills. He is being treated for degenerative disc disease lumbar spine with lumbar radiculopathy symptoms. Patient's pain is a 10 out of 10 today. He states he has been without medication for 2 to 3 days. He says he was unaware that he had to come to the clinic monthly. He previously came to the clinic every 2 to 3 months. He is not happy that he will have to come into the clinic monthly. He and I did discuss the option of intrathecal therapy. He says his brother does have an intrathecal pain pump which does well for him. This may be an option for him in the future. He and I did discuss in detail today. He is managed with [place] 7.5 mg 1 tablet p.o. 4 times daily and pregabalin 75 mg 1 tablet p.o. twice daily. We did discuss increasing his pregabalin to 100 mg twice daily. He would like to try this. His pain has worsened. We did discuss physical therapy. He says in the past physical therapy has made his pain worse. We also discussed injective therapy. He is open to injections in the future if his pain worsens more than it is at this time. Review of Systems General: No recent weight changes, no fever, no sleep disturbances Respiratory: No cough, no shortness of air, no recurring pulmonary infections Cardiovascular/peripheral vascular: No chest pain, no palpitations, no edema, no shortness of breath Gastrointestinal: No new onset incontinence, normal bowel movements reported Genitourinary: No new onset incontinence Musculoskeletal: Low back pain Psychiatric: Normal mood/affect Neurological: [Denies weakness in extremities], [denies balance issues] Objective:: Physical exam General: Alert and oriented x3, no acute distress, pleasant and cooperative, [on room air] Lungs: Respirations even and unlabored, symmetrical chest expansion Eyes: PERRL Musculoskeletal: Flexion and extension of [] lumbar spine somewhat guarded secondary to pain, deep tendon reflexes normal, strength in upper and lower extremities [5/5], [abnormal gait noted] Neurological: Speech clear, lieutenant general equal, no gross sensory deficit Assessment:: Degenerative disc disease lumbar spine with lumbar radiculopathy symptoms Plan:: We will refill the patient's [place] 7.5 mg 1 tablet p.o. 4 times daily. We will increase his Lyrica to 100 mg 1 tablet p.o. twice daily. He will get 1 month medication and will be seen back in the clinic. Patient has been instructed to contact the clinic with any concerns before the next appointment. Dr. Martel has reviewed this note and agrees with this plan of care. This note was dictated using voice recognition software and make contain errors or omissions. Risks and benefits of the medication have been explained in detail to the patient. The patient has been advised to consult with his/her primary care provider and pharmacist regarding drug-drug interaction of medications currently prescribed. Patient has been prescribed a controlled substance after being counseled on the medication, medication safety, and possible side effects. ROSEMARIE report has been obtained and reviewed prior to prescription and found to be appropriate. Opioid contract was reviewed and signed by the patient, and that they have agreed to all of the terms set forth by our compliance program. [facility] History I have reviewed the patient's past medical history: Yes Medical History: Reports:: Atrial Fibrillation, Diabetes Mellitus Type 2, Hyperlipidemia, Internal Pacemaker Denies:: Cancer, Diabetes Mellitus Type 1, MRSA, Seizures *Have you ever received a pneumonia vaccine?: Yes *Have you received a flu vaccine this season?: Yes Other Medical History: Denies: Blood Transfusion Reaction Other Surgeries: Yes: Cholecystectomy, Hernia Repair, Pacemaker, Sinus Surgery, Other (lumpectomy) Amputation: No Fractures: No - *Social History
== END ==
PROVIDERS: Visit Provider Clinical Nurse Specialist Family Health
DX: M51.16 Intervertebral disc disorders with radiculopathy, lumbar region (principal)
CPT/HCPCS: 99212; G0463

== ENCOUNTER → 2020-12-19 09:20 | Outpatient (POV) | payer MEDICARE, BC, SELFPAY ==
[2020-12-19 09:28] VITALS: BP 151/83; PULSE 89; RESP 18; O2SAT 96; BMI 30.6
--- NOTE | 2020-12-19 10:19 | HMH.PAINSOAP ---
[facility] Pain Management SOAP Note Subjective:: Patient is a 69-year-old white male who presents today for follow-up medic feels. He has been treated for degenerative disc disease lumbar spine with lumbar radiculopathy symptoms. Patient rates his pain a 9 out of 10 today. He is managed in the clinic with Lyrica 100 mg 1 tablet p.o. twice daily and [place] 7.5 mg 1 tablet p.o. 4 times daily. He says that after the increase with his Lyrica at the last visit, his pain did not improve. He says he does not feel the Lyrica gave him any significant relief. He did report his pain to be a 10 out of 10 at his last visit. He and I discussed physical therapy along with injective therapy at the last visit and today, however, he does not feel these have given him any significant relief in the past. He continues with home stretching. Patient is inquiring about a change in medication. I did discuss with him we would not be able to change the medication, however, we can increase the amount of medication he is taking throughout the day. He currently takes [place] 7.5 mg 1 tablet p.o. 4 times daily. He denies any side effects. Patient did undergo a pill count recently which was appropriate. He will undergo a repeat drug screen today. His drug screens have been appropriate in the past. [facility] #[id number] has been reviewed and is appropriate. Drug screen is appropriate. Morphine equivalent is 30. Review of Systems General: No recent weight changes, no fever, no sleep disturbances Respiratory: No cough, no shortness of air, no recurring pulmonary infections Cardiovascular/peripheral vascular: No chest pain, no palpitations, no edema, no shortness of breath Gastrointestinal: No new onset incontinence, normal bowel movements reported Genitourinary: No new onset incontinence Musculoskeletal: Worsening low back pain with radiation into bilateral lower extremities Psychiatric: [Normal mood/affect] Neurological: [Denies weakness in extremities], [denies balance issues] Objective:: Physical exam General: Alert and oriented x3, no acute distress, pleasant and cooperative, [on room air] Lungs: Respirations even and unlabored, symmetrical chest expansion Eyes: PERRL Musculoskeletal: Flexion and extension of [] lumbar [spine] somewhat guarded secondary to pain, strength in upper and lower extremities [5/5], [antalgic gait noted] Neurological: Speech clear, [real estate developer equal], no gross sensory deficit Assessment:: Degenerative disc disease lumbar spine with lumbar radiculopathy symptoms Plan:: We will increase the patient's [place] 7.5 mg to be 5 times daily. If the patient continues to have significant pain following an increase in his medicine, he will likely need to undergo an MRI of the lumbar spine to determine if there have been any changes. He has tried physical therapy and has also tried injective therapy in the past with no significant relief. If he does show changes with an MRI, he may need a referral to neurosurgery. We will follow-up with him in a month for reevaluation of symptoms. He would like to continue with the has not given him much relief. We will continue his pregabalin at 100 mg 1 tablet p.o. twice daily. Risks and benefits of the medication have been explained in detail to the patient. The patient has been advised to consult with his/her primary care provider and pharmacist regarding drug-drug interaction of medications currently prescribed. Patient has been prescribed a controlled substance after being counseled on the medication, medication safety, and possible side effects. ROSEMARIE report has been obtained and reviewed prior to prescription and found to be appropriate. Opioid contract was reviewed and signed by the patient, and that they have agreed to all of the terms set forth by our compliance program. Patient has been instructed to contact the clinic with any concerns before the next appointment. Dr. Martel has reviewed this note and ag
== END ==
PROVIDERS: Visit Provider Clinical Nurse Specialist Family Health
DX: M51.16 Intervertebral disc disorders with radiculopathy, lumbar region (principal)
CPT/HCPCS: 99212; G0463

== ENCOUNTER 2021-01-15 09:54 | Outpatient (CLI) | payer MEDICARE, BC, SELFPAY ==
[2021-01-16 15:28] LABS: PHA INR Fingerstick 2.1 (0.9-1.1)
== END 2021-01-15 15:00 | disposition home or self-care (01) ==
LOC: ACC 09:55
PROVIDERS: PCP Family Medicine; Visit Provider Nurse Practitioner Family
DX: Z51.81 Encounter for therapeutic drug level monitoring (principal); Z79.01 Long term (current) use of anticoagulants; I48.91 Unspecified atrial fibrillation
CPT/HCPCS: 85610; 99211; G0463

== ENCOUNTER → 2021-01-16 11:39 | Outpatient (POV) | payer MEDICARE, BC, SELFPAY ==
[2021-01-16 11:46] VITALS: BP 131/62; PULSE 82; RESP 18; O2SAT 96; BMI 30.6
--- NOTE | 2021-01-16 12:16 | HMH.PAINSOAP ---
[facility] Pain Management SOAP Note Subjective:: Patient called white male who presents today for medication refills and follow-up. He is being treated for degenerative disc disease lumbar spine with lumbar radiculopathy symptoms. Patient is managed with [place] 7.5 mg 1 tablet p.o. 4 times daily and Lyrica 100 mg 1 tablet p.o. twice daily. He is doing well with his medicines. He says that his pain is tolerable at this point since an increase in his medicine. He denies any side effects. Rosemarie #[id number] has been reviewed and is appropriate. Patient's morphine equivalent is 38. Drug screen is appropriate. Patient also uses CBD oil at recommendation of Dr. Martel. Review of Systems General: No recent weight changes, no fever, no sleep disturbances Respiratory: No cough, no shortness of air, no recurring pulmonary infections Cardiovascular/peripheral vascular: No chest pain, no palpitations, no edema, no shortness of breath Gastrointestinal: No new onset incontinence, normal bowel movements reported Genitourinary: No new onset incontinence Musculoskeletal: Chronic low back pain Psychiatric: [Normal mood/affect] Neurological: [Denies weakness in extremities], [denies balance issues] Objective:: Physical exam General: Alert and oriented x3, no acute distress, pleasant and cooperative, [on room air] Lungs: Respirations even and unlabored, symmetrical chest expansion Eyes: PERRL Musculoskeletal: Flexion and extension of lumbar [spine] somewhat guarded secondary to pain, strength in upper and lower extremities [5/5], [antalgic gait noted] Neurological: Speech clear, [j2ee engineer equal], no gross sensory deficit Assessment:: Degenerative disc disease lumbar spine with lumbar radiculopathy symptoms Plan:: We will refill the patient's [place] 7.5 mg 1 tablet p.o. 4 times daily and Lyrica 100 mg 1 tablet p.o. twice daily. We will give the patient a month medication see him back in the clinic in 1 month for reevaluation of symptoms. Risks and benefits of the medication have been explained in detail to the patient. The patient has been advised to consult with his/her primary care provider and pharmacist regarding drug-drug interaction of medications currently prescribed. Patient has been prescribed a controlled substance after being counseled on the medication, medication safety, and possible side effects. ROSEMARIE report has been obtained and reviewed prior to prescription and found to be appropriate. Opioid contract was reviewed and signed by the patient, and that they have agreed to all of the terms set forth by our compliance program. Patient has been instructed to contact the clinic with any concerns before the next appointment. Dr. Martel has reviewed this note and agrees with this plan of care. This note was dictated using voice recognition software and make contain errors or omissions. [facility] History I have reviewed the patient's past medical history: Yes Medical History: Reports:: Atrial Fibrillation, Diabetes Mellitus Type 2, Hyperlipidemia, Internal Pacemaker Denies:: Cancer, Diabetes Mellitus Type 1, MRSA, Seizures *Have you ever received a pneumonia vaccine?: Yes *Have you received a flu vaccine this season?: Yes Other Medical History: Denies: Blood Transfusion Reaction Other Surgeries: Yes: Cholecystectomy, Hernia Repair, Pacemaker, Sinus Surgery, Other (lumpectomy) Amputation: No Fractures: No - *Social History Smoking Status: Former smoker Alcohol Intake: never *Occupational Status:: retired Housing: apartment Household Members: spouse *Travel in the last 8 weeks: None Family Hx:: Coronary Artery Disease, Diabetes, Heart Attack
== END ==
PROVIDERS: Visit Provider Clinical Nurse Specialist Family Health
DX: M51.16 Intervertebral disc disorders with radiculopathy, lumbar region (principal)
CPT/HCPCS: 99212; G0463

== ENCOUNTER → 2021-02-13 09:05 | Outpatient (POV) | payer MEDICARE, BC, SELFPAY ==
[2021-02-13 09:14] VITALS: BP 147/63; PULSE 80; RESP 18; O2SAT 97; BMI 30.6
--- NOTE | 2021-02-13 09:23 | HMH.PAINSOAP ---
[facility] Pain Management SOAP Note Subjective:: Patient is a pleasant 70-year-old white male who presents today for medication refills. Patient is getting [place] 7.5 mg 1 tablet p.o. 5 times daily and Lyrica 100 mg 1 tablet p.o. twice daily. He is continuing to have low back pain with radiation into lower extremities but does say that the medication does keep him at baseline which is a 7 out of 10. Patient says a 7 out of 10 is a tolerable pain scale for him. He is doing well with the medications overall. He denies any side effects. [facility] #[id number] has been reviewed and is appropriate. The patient's drug screens have been appropriate. His morphine equivalent is 38. Review of Systems General: No recent weight changes, no fever, no sleep disturbances Respiratory: No cough, no shortness of air, no recurring pulmonary infections Cardiovascular/peripheral vascular: No chest pain, no palpitations, no edema, no shortness of breath Gastrointestinal: No new onset incontinence, normal bowel movements reported Genitourinary: No new onset incontinence Musculoskeletal: Low back pain with radiation into lower extremities Psychiatric: [Normal mood/affect] Neurological: [Denies weakness in extremities], [denies balance issues] Objective:: Physical exam General: Alert and oriented x3, no acute distress, pleasant and cooperative, [on room air] Lungs: Respirations even and unlabored, symmetrical chest expansion Eyes: PERRL Musculoskeletal: Flexion and extension of [lumbar] [spine] somewhat guarded secondary to pain, strength in upper and lower extremities [5/5], [antalgic gait noted] Neurological: Speech clear, [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 4 times daily and Lyrica 100 mg 1 tablet p.o. twice daily. We will give him a month medication and see him back in the clinic in 1 month for reevaluation of symptoms. Risks and benefits of the medication have been explained in detail to the patient. The patient has been advised to consult with his/her primary care provider and pharmacist regarding drug-drug interaction of medications currently prescribed. Risks and benefits of the medication have been explained in detail to the patient. If side effects do present with the medication, she has been advised to stop the medication immediately and call the clinic. The patient has been advised to consult with his/her primary care provider and pharmacist regarding drug-drug interaction of medications currently prescribed. Patient has been prescribed a controlled substance after being counseled on the medication, medication safety, and possible side effects. ROSEMARIE report has been obtained and reviewed prior to prescription and found to be appropriate. Opioid contract was reviewed and signed by the patient, and that they have agreed to all of the terms set forth by our compliance program. Patient has been instructed to contact the clinic with any concerns before the next appointment. Dr. Martel has reviewed this note and agrees with this plan of care. This note was dictated using voice recognition software and make contain errors or omissions. [facility] History I have reviewed the patient's past medical history: Yes Medical History: Reports:: Atrial Fibrillation, Diabetes Mellitus Type 2, Hyperlipidemia, Internal Pacemaker Denies:: Cancer, Diabetes Mellitus Type 1, MRSA, Seizures *Have you ever received a pneumonia vaccine?: Yes *Have you received a flu vaccine this season?: No Other Medical History: Denies: Blood Transfusion Reaction Other Surgeries: Yes: Cholecystectomy, Hernia Repair, Pacemaker, Sinus Surgery, Other (lumpectomy) Amputation: No Fractures: No - *Social History Smoking Status: Former smoker Alcohol Intake: never *Occupational Status:: unemployed Housing: apartment Household Members: s
== END ==
PROVIDERS: Visit Provider Clinical Nurse Specialist Family Health
DX: M51.16 Intervertebral disc disorders with radiculopathy, lumbar region (principal)
CPT/HCPCS: 99212; G0463

== ENCOUNTER 2021-03-05 09:59 | Outpatient (CLI) | payer MEDICARE, BC, SELFPAY | END 2021-03-05 16:26 | disposition home or self-care (01) | LOC: ACC 09:59 | PROVIDERS: PCP Family Medicine; Visit Provider Nurse Practitioner Family | DX: Z51.81 Encounter for therapeutic drug level monitoring (principal); Z79.01 Long term (current) use of anticoagulants | CPT/HCPCS: 85610; 99211; G0463 ==

== ENCOUNTER → 2021-03-13 08:24 | Outpatient (POV) | payer MEDICARE, BC, SELFPAY ==
--- NOTE | 2021-03-13 08:42 | HMH.PAINSOAP ---
[facility] Pain Management SOAP Note Subjective:: Patient is a 70-year-old white male who presents today for medication refills. Patient does have chronic low back pain that goes into bilateral lower extremities. He does rate his pain a 7 out of 10 which is baseline for him. We do manage the patient with [place] 7.5 mg 1 tablet p.o. 5 times daily and Lyrica 600 mg 1 tablet p.o. twice daily. He denies any side effects to the medicine. The patient's Rosemarie #[id number] has been reviewed and is appropriate. Drug screen is appropriate. Morphine equivalent is 38. Patient does get his medications at a site pharmacy. Review of Systems General: No recent weight changes, no fever, no sleep disturbances Respiratory: No cough, no shortness of air, no recurring pulmonary infections Cardiovascular/peripheral vascular: No chest pain, no palpitations, no edema, no shortness of breath Gastrointestinal: No new onset incontinence, normal bowel movements reported Genitourinary: No new onset incontinence Musculoskeletal: Chronic low back pain with radiation into bilateral lower extremities Psychiatric: [Normal mood/affect] Neurological: [Denies weakness in extremities], [denies balance issues] Objective:: Physical exam General: Alert and oriented x3, no acute distress, pleasant and cooperative Lungs: Respirations even and unlabored, symmetrical chest expansion Eyes: PERRL Musculoskeletal: Flexion and extension of lumbar [spine] somewhat guarded secondary to pain, [antalgic gait noted] Neurological: Speech clear, no gross sensory deficit Assessment:: Degenerative disc disease lumbar spine with lumbar radiculopathy symptoms Plan:: We will refill the patient's [place] 7.5 mg 1 tablet p.o. 5 times daily and Lyrica 100 mg p.o. twice daily. We will give the patient a month medication see him back patient's morphine equivalent is 38. We will order Narcan as needed for oversedation. Risks and benefits of the medication have been explained in detail to the patient. The patient does understand the risk of dependence on the medication when given over a prolonged period. Patient has been advised of risks of oversedation with the prescribed medication. Narcan has been offered to the paitent in the event of oversedation. Patient has been advised that a family member should also be educated regarding administration of Narcan. The patient has been advised to consult with his/her primary care provider and pharmacist regarding drug-drug interaction of medications currently prescribed. Patient has been prescribed a controlled substance after being counseled on the medication, medication safety, and possible side effects. ROSEMARIE report has been obtained and reviewed prior to prescription and found to be appropriate. Opioid contract was reviewed and signed by the patient, and that they have agreed to all of the terms set forth by our compliance program. Patient has been instructed to contact the clinic with any concerns before the next appointment. Dr. Martel has reviewed this note and agrees with this plan of care. This note was dictated using voice recognition software and make contain errors or omissions. [facility] History I have reviewed the patient's past medical history: Yes Medical History: Reports:: Atrial Fibrillation, Diabetes Mellitus Type 2, Hyperlipidemia, Internal Pacemaker Denies:: Cancer, Diabetes Mellitus Type 1, MRSA, Seizures *Have you ever received a pneumonia vaccine?: Yes *Have you received a flu vaccine this season?: No Other Medical History: Denies: Blood Transfusion Reaction Other Surgeries: Yes: Cholecystectomy, Hernia Repair, Pacemaker, Sinus Surgery, Other (lumpectomy) Amputation: No Fractures: No - *Social History Smoking Status: Former smoker Alcohol Intake: never *Occupational Status:: unemployed Housing: apartment Household Members: spouse *Travel in the last 8 weeks: None Family Hx:: Coronary Artery Disease, Diabetes
[2021-03-13 08:56] VITALS: BP 141/67; PULSE 88; RESP 18; O2SAT 98; BMI 30.6
[2021-03-13 09:59] LABS: Amphetamine/Metha Screen,Urine Negative ng/ml (<1000)
[2021-03-13 10:00] LABS: Barbiturates Screen,Urine Negative ng/ml (<200); Benzodiazepines Screen,Urine Negative ng/ml (<200)
[2021-03-13 10:01] LABS: Cannabinoid Screen,Urine Negative ng/ml (<50)
[2021-03-13 10:02] LABS: Cocaine Screen,Urine Negative ng/ml (<300); Methadone Screen,Urine Negative ng/ml (<300)
[2021-03-13 10:03] LABS: Opiate Screen,Urine Positive ng/ml (<300)
[2021-03-13 10:04] LABS: Phencyclidine Screen,Urine Negative ng/ml (<25)
== END ==
PROVIDERS: Visit Provider Clinical Nurse Specialist Family Health
DX: M51.16 Intervertebral disc disorders with radiculopathy, lumbar region (principal); I48.91 Unspecified atrial fibrillation; Z79.891 Long term (current) use of opiate analgesic
CPT/HCPCS: 80305; 99212; G0463

== ENCOUNTER 2021-03-26 09:56 | Outpatient (CLI) | payer MEDICARE, BC, SELFPAY ==
[2021-03-26 15:44] LABS: PHA INR Fingerstick 2.7 (0.9-1.1)
== END 2021-03-26 15:59 | disposition home or self-care (01) ==
LOC: ACC 09:57
PROVIDERS: PCP Family Medicine; Visit Provider Nurse Practitioner Family
DX: Z51.81 Encounter for therapeutic drug level monitoring (principal); Z79.01 Long term (current) use of anticoagulants; I48.91 Unspecified atrial fibrillation
CPT/HCPCS: 85610; 99211; G0463

== ENCOUNTER → 2021-04-10 08:53 | Outpatient (POV) | payer MEDICARE, BC, SELFPAY ==
[2021-04-10 09:01] VITALS: BP 157/68; PULSE 87; RESP 18; O2SAT 96; BMI 29.9
--- NOTE | 2021-04-10 09:08 | HMH.PAINSOAP ---
[facility] Pain Management SOAP Note Subjective:: Patient is a 70-year-old white male who presents today for medication refills. He is doing well overall with his medicines. He does get treated for low back pain as well as bilateral lower extremity pain. He rates his pain a 7 out of 10 which is baseline for him. He says that standing or walking does make his pain worse. Sitting relieves his pain. He is managed with Concrete 7.5 mg 1 tablet p.o. 5 times daily and Lyrica 100 mg 1 tablet p.o. twice daily. He denies any side effects to the medication. Patient's morphine equivalent is 38. [facility] #[id number] has been reviewed and is appropriate. Review of Systems General: No recent weight changes, no fever, no sleep disturbances Respiratory: No cough, no shortness of air, no recurring pulmonary infections Cardiovascular/peripheral vascular: No chest pain, no palpitations, no edema, no shortness of breath Gastrointestinal: No new onset incontinence, normal bowel movements reported Genitourinary: No new onset incontinence Musculoskeletal: Low back pain, bilateral lower extremity pain Psychiatric: [Normal mood/affect] Neurological: [Denies weakness in extremities], [denies balance issues] Objective:: Physical exam General: Alert and oriented x3, no acute distress, pleasant and cooperative Lungs: Respirations even and unlabored, symmetrical chest expansion Eyes: PERRL Musculoskeletal: Flexion and extension of lumbar [spine] somewhat guarded secondary to pain, [antalgic gait noted] Neurological: Speech clear, no gross sensory deficit Assessment:: Degenerative disc disease lumbar spine with lumbar radiculopathy symptoms Plan:: We will continue the patient's Concrete 7.5 mg 1 tablet p.o. 5 times daily and Lyrica 100 mg 1 tablet p.o. twice daily. We will give the patient a month medication see him back in the clinic in 1 month for further evaluation. He has been order Narcan he does have Narcan available in the event of oversedation. . Risks and benefits of the medication have been explained in detail to the patient. The patient does understand the risk of dependence on the medication when given over a prolonged period. Patient has been advised of risks of oversedation with the prescribed medication. Narcan has been offered to the paitent in the event of oversedation. Patient has been advised that a family member should also be educated regarding administration of Narcan. The patient has been advised to consult with his/her primary care provider and pharmacist regarding drug-drug interaction of medications currently prescribed. Patient has been prescribed a controlled substance after being counseled on the medication, medication safety, and possible side effects. ROSEMARIE report has been obtained and reviewed prior to prescription and found to be appropriate. Opioid contract was reviewed and signed by the patient, and that they have agreed to all of the terms set forth by our compliance program. Patient has been instructed to contact the clinic with any concerns before the next appointment. Dr. Martel has reviewed this note and agrees with this plan of care. This note was dictated using voice recognition software and make contain errors or omissions. [facility] History I have reviewed the patient's past medical history: Yes Medical History: Reports:: Atrial Fibrillation, Diabetes Mellitus Type 2, Hyperlipidemia, Internal Pacemaker Denies:: Cancer, Diabetes Mellitus Type 1, MRSA, Seizures *Have you ever received a pneumonia vaccine?: Yes *Have you received a flu vaccine this season?: Yes Other Medical History: Denies: Blood Transfusion Reaction Other Surgeries: Yes: Cholecystectomy, Hernia Repair, Pacemaker, Sinus Surgery, Other (lumpectomy) Amputation: No Fractures: No - *Social History Smoking Status: Former smoker Alcohol Intake: never *Occupational Status:: unemployed Housing: apartment Household Members: spouse *Travel in t
== END ==
PROVIDERS: Visit Provider Clinical Nurse Specialist Family Health
DX: M51.16 Intervertebral disc disorders with radiculopathy, lumbar region (principal)
CPT/HCPCS: 99212; G0463

== ENCOUNTER 2021-05-07 09:53 | Outpatient (CLI) | payer MEDICARE, BC, SELFPAY ==
[2021-05-07 10:34] LABS: PHA INR Fingerstick 1.9 (0.9-1.1)
== END 2021-05-07 10:35 | disposition home or self-care (01) ==
LOC: ACC 09:54
PROVIDERS: PCP Family Medicine; Visit Provider Nurse Practitioner Family
DX: Z51.81 Encounter for therapeutic drug level monitoring (principal); Z79.01 Long term (current) use of anticoagulants; I48.91 Unspecified atrial fibrillation
CPT/HCPCS: 85610; 99211; G0463

== ENCOUNTER → 2021-05-12 08:50 | Outpatient (POV) | payer MEDICARE, BC, SELFPAY ==
[2021-05-12 09:08] VITALS: BP 137/59; PULSE 87; RESP 18; O2SAT 97; BMI 29.9
--- NOTE | 2021-05-12 09:10 | P.CONS_ITS ---
[facility] Pain Management SOAP Note Subjective:: Patient is a pleasant 70 year old male who is here for medication refill and follow-up. Patient is currently being treated for degenerative disc disease lumbar spine with lumbar radiculopathy symptoms. Patient is being managed with Bayard 7.5mg 5 times a day and Pregabalin 100mg twice a day. Patient denies any side effects from the medications. Patient denies any changes to the location and type of pain. Rates pain as 11/16. [facility] number [id number] with an active morphine equivalent 0. Drug screens have been reviewed and appropriate. General: No recent weight changes, no fever, no sleep disturbances Respiratory: No cough, no shortness of air, no recurring pulmonary infections Cardiovascular/peripheral vascular: No chest pain, no palpitations, no edema, no shortness of breath Gastrointestinal: No new onset incontinence, normal bowel movements reported Genitourinary: No new onset incontinence Musculoskeletal: low back pain Psychiatric: [Normal mood/affect] Neurological: [Denies weakness in extremities], [denies balance issues] Objective:: General: Alert and oriented x3, no acute distress, pleasant and cooperative, [on room air] Lungs: Respirations even and unlabored, symmetrical chest expansion Eyes: PERRL Musculoskeletal: Flexion and extension of [lumbar] [spine] somewhat guarded secondary to pain, [antalgic gait noted] Neurological: Speech clear, no gross sensory deficit Assessment:: Degenerative disc disease of the lumbar spine Lumbar Radiculopathy Plan:: We will continue the patient's Norco7.5mg five times a day and pregabalin 100mg twice a day. We will provide the patient with 1 month of refills. We would like to see the patient back in 1 month for follow-up. Risks and benefits of the medication have been explained in detail to the patient. The patient does understand the risk of dependence on the medication when given over a prolonged period. Patient has been advised of risks of oversedation with the prescribed medication. Narcan has been offered to the paitent in the event of oversedation. Patient has been advised that a family member should also be educated regarding administration of Narcan. The patient has been advised to consult with his/her primary care provider and pharmacist regarding drug-drug interaction of medications currently prescribed. Patient has been prescribed a controlled substance after being counseled on the medication, medication safety, and possible side effects. Opioid contract was reviewed and signed by the patient, and that they have agreed to all of the terms set forth by our compliance program. [facility] History Medical History: Reports:: Atrial Fibrillation, Diabetes Mellitus Type 2, Hyperlipidemia, Internal Pacemaker Denies:: Cancer, Diabetes Mellitus Type 1, MRSA, Seizures *Have you ever received a pneumonia vaccine?: Yes *Have you received a flu vaccine this season?: Yes Other Medical History: Denies: Blood Transfusion Reaction Other Surgeries: Yes: Cholecystectomy, Hernia Repair, Pacemaker, Sinus Surgery, Other (lumpectomy) Amputation: No Fractures: No - *Social History Smoking Status: Former smoker Alcohol Intake: never *Occupational Status:: unemployed Housing: apartment Household Members: spouse *Travel in the last 8 weeks: Inside the [place] Family Hx:: Coronary Artery Disease, Diabetes, Heart Attack
--- NOTE | 2021-05-13 08:01 | P.CONS_ITS ---
[facility] Pain Management SOAP Note Subjective:: ORT score is 0, low risk. New pain management contract signed and completed Patient is a pleasant 70 year old male who is here for medication refill and follow-up. Patient is currently being treated for degenerative disc disease lumbar spine with lumbar radiculopathy symptoms. Patient is being managed with [place] 7.5mg 5 times a day and Pregabalin 100mg twice a day. Patient denies any side effects from the medications. Patient denies any changes to the location and type of pain. Rates pain as 11/16. [facility] number [id number] with an active morphine equivalent 0. Drug screens have been reviewed and appropriate. General: No recent weight changes, no fever, no sleep disturbances Respiratory: No cough, no shortness of air, no recurring pulmonary infections Cardiovascular/peripheral vascular: No chest pain, no palpitations, no edema, no shortness of breath Gastrointestinal: No new onset incontinence, normal bowel movements reported Genitourinary: No new onset incontinence Musculoskeletal: low back pain Psychiatric: [Normal mood/affect] Neurological: [Denies weakness in extremities], [denies balance issues] Objective:: General: Alert and oriented x3, no acute distress, pleasant and cooperative, [on room air] Lungs: Respirations even and unlabored, symmetrical chest expansion Eyes: PERRL Musculoskeletal: Flexion and extension of [lumbar] [spine] somewhat guarded secondary to pain, [antalgic gait noted] Neurological: Speech clear, no gross sensory deficit Assessment:: Degenerative disc disease of the lumbar spine Lumbar Radiculopathy Plan:: We will continue the patient's Norco7.5mg five times a day and pregabalin 100mg twice a day. We will provide the patient with 1 month of refills. We would like to see the patient back in 1 month for follow-up. Risks and benefits of the medication have been explained in detail to the patient. The patient does understand the risk of dependence on the medication when given over a prolonged period. Patient has been advised of risks of oversedation with the prescribed medication. Narcan has been offered to the paitent in the event of oversedation. Patient has been advised that a family member should also be edu cated regarding administration of Narcan. The patient has been advised to consult with his/her primary care provider and pharmacist regarding drug-drug interaction of medications currently prescribed. Patient has been prescribed a controlled substance after being counseled on the medication, medication safety, and possible side effects. Opioid contract was reviewed and signed by the patient, and that they have agreed to all of the terms set forth by our compliance program. [facility] History I have reviewed the patient's past medical history: Yes Medical History: Reports:: Atrial Fibrillation, Diabetes Mellitus Type 2, Hyperlipidemia, Internal Pacemaker Denies:: Cancer, Diabetes Mellitus Type 1, MRSA, Seizures *Have you ever received a pneumonia vaccine?: Yes *Have you received a flu vaccine this season?: Yes Other Medical History: Denies: Blood Transfusion Reaction Other Surgeries: Yes: Cholecystectomy, Hernia Repair, Pacemaker, Sinus Surgery, Other (lumpectomy) Amputation: No Fractures: No - *Social History Smoking Status: Former smoker Alcohol Intake: never *Occupational Status:: unemployed Housing: apartment Household Members: spouse *Travel in the last 8 weeks: Inside the [facility] Family Hx:: Coronary Artery Disease, Diabetes, Heart Attack
== END ==
PROVIDERS: Visit Provider Clinical Nurse Specialist Family Health
DX: M51.16 Intervertebral disc disorders with radiculopathy, lumbar region (principal)
CPT/HCPCS: 99212; G0463

== ENCOUNTER → 2021-06-04 09:56 | Outpatient (CLI) | payer MEDICARE, BC, SELFPAY ==
[2021-06-04 14:54] LABS: PHA INR Fingerstick 1.8 (0.9-1.1)
== END ==
PROVIDERS: PCP Family Medicine; Visit Provider Nurse Practitioner Family
DX: Z51.81 Encounter for therapeutic drug level monitoring (principal); Z79.01 Long term (current) use of anticoagulants; I48.91 Unspecified atrial fibrillation
CPT/HCPCS: 85610; 99211; G0463

== ENCOUNTER → 2021-06-12 07:40 | Outpatient (POV) | payer MEDICARE, BC, SELFPAY ==
--- NOTE | 2021-06-12 08:36 | HMH.VVPMSO ---
[facility] PM Virtual Visit SOAP Consent for virtual visit:: With the recent concerns about the COVID-19, we are trying to minimize exposure to you by shifting to telehealth appointments whenever possible. It restricts me from seeing you in person, but the trade off is protecting you during this pandemic. Can you see and hear me okay, and do you consent to this option? If not, I would be happy to see if we can reschedule your appointment in the future, when feasible. Has patient consented to this virtual visit?: Yes Subjective:: Patient is a 70-year-old white male who presents today for follow-up. We are treating the patient for chronic low back pain with lumbar radicular symptoms. We are doing a telehealth visit via telephone today due to weather conditions locally. We manage the patient with Luxora 7.5 mg 5 times daily and Lyrica 100 mg 1 tablet p.o. 2 times daily. He denies any side effects and is doing well with medications overall. Rosemarie is appropriate. Drug screens have been appropriate in the past. He rates his pain 6 out of 10 which is baseline for him. Review of Systems General: No recent weight changes, no fever, no sleep disturbances Respiratory: No cough, no shortness of air, no recurring pulmonary infections Cardiovascular/peripheral vascular: No chest pain, no palpitations, no edema, no shortness of breath Gastrointestinal: No new onset incontinence, normal bowel movements reported Genitourinary: No new onset incontinence Musculoskeletal: Chronic low back pain with radiation into lower extremities Psychiatric: [Normal mood/affect] Neurological: [Denies weakness in extremities], [denies balance issues] Objective:: Physical exam General: Alert and oriented x3, no acute distress, pleasant and cooperative Assessment:: Degenerative disc disease lumbar spine with lumbar radiculopathy symptoms Plan:: We will continue the patient's Luxora 7.5 mg 1 tablet p.o. 5 times daily Lyrica 100 mg 1 tablet p.o. twice daily. The patient will get a month medication follow-up in the clinic next visit. Risks and benefits of the medication have been explained in detail to the patient. The patient does understand the risk of dependence on the medication when given over a prolonged period. Patient has been advised of risks of oversedation with the prescribed medication. Narcan has been offered to the paitent in the event of oversedation. Patient has been advised that a family member should also be educated regarding administration of Narcan. The patient has been advised to consult with his/her primary care provider and pharmacist regarding drug-drug interaction of medications currently prescribed. Patient has been prescribed a controlled substance after being counseled on the medication, medication safety, and possible side effects. ROSEMARIE report has been obtained and reviewed prior to prescription and found to be appropriate. Opioid contract was reviewed and signed by the patient, and that they have agreed to all of the terms set forth by our compliance program. Patient has been instructed to contact the clinic with any concerns before the next appointment. Dr. Martel has reviewed this note and agrees with this plan of care. This note was dictated using voice recognition software and make contain errors or omissions. Time In:: 08:30 Time Out:: 08:39 [facility] History I have reviewed the patient's past medical history: Yes Medical History: Reports:: Atrial Fibrillation, Diabetes Mellitus Type 2, Hyperlipidemia, Internal Pacemaker Denies:: Cancer, Diabetes Mellitus Type 1, MRSA, Seizures *Have you ever received a pneumonia vaccine?: Yes *Have you received a flu vaccine this season?: Yes Other Medical History: Denies: Blood Transfusion Reaction Other Surgeries: Yes: Cholecystectomy, Hernia Repair, Pacemaker, Sinus Surgery, Other (lumpectomy) Amputation: No Fractures: No - *Social History Smoking Status: Former smoker Alcoh
== END ==
PROVIDERS: Visit Provider Clinical Nurse Specialist Family Health
DX: M51.16 Intervertebral disc disorders with radiculopathy, lumbar region (principal)
CPT/HCPCS: 99212; G0463

== ENCOUNTER 2021-07-02 09:50 | Outpatient (CLI) | payer MEDICARE, BC, SELFPAY ==
[2021-07-02 11:11] LABS: PHA INR Fingerstick 1.8 (0.9-1.1)
== END 2021-07-02 11:12 | disposition home or self-care (01) ==
PROVIDERS: PCP Family Medicine; Visit Provider Nurse Practitioner Family
DX: Z51.81 Encounter for therapeutic drug level monitoring (principal); Z79.01 Long term (current) use of anticoagulants; I48.91 Unspecified atrial fibrillation; R06.09 Other forms of dyspnea
CPT/HCPCS: 85610; 94762; 99211; G0463

== ENCOUNTER → 2021-07-10 11:01 | Outpatient (POV) | payer MEDICARE, BC, SELFPAY ==
[2021-07-10 12:27] VITALS: BP 147/97; PULSE 86; RESP 20; TEMP 36.7; O2SAT 97; BMI 30.4
[2021-07-10 12:28] LABS: Phencyclidine Screen,Urine Negative ng/ml (<25)
[2021-07-10 12:34] LABS: Amphetamine/Metha Screen,Urine Negative ng/ml (<1000)
[2021-07-10 12:35] LABS: Barbiturates Screen,Urine Negative ng/ml (<200); Benzodiazepines Screen,Urine Negative ng/ml (<200)
[2021-07-10 12:36] LABS: Cannabinoid Screen,Urine Negative ng/ml (<50)
[2021-07-10 12:39] LABS: Cocaine Screen,Urine Negative ng/ml (<300); Opiate Screen,Urine Positive ng/ml (<300)
[2021-07-10 12:40] LABS: Methadone Screen,Urine Negative ng/ml (<300)
--- NOTE | 2021-07-10 14:50 | HMH.PAINSOAP ---
[facility] Pain Management SOAP Note Subjective:: This patient is a very pleasant 70-year-old white male who presents today for follow-up. He is currently being treated for degenerative disc disease of lumbar spine with lumbar radiculopathy. He is currently taking Gratis 7.5 mg 1 tablet up to 5 times daily and Lyrica 100 mg 1 tablet twice daily. He denies any adverse effects to this medication. He states that the current pain medication regimen is allowing him to maintain his mobility and functionality. He rates his pain today as a 5 out of 10. He is requesting refills on his medication today. Objective:: General: Alert and oriented x3, no acute distress, pleasant and cooperative Lungs: Resps E/U, symmetric chest expansion Eyes: PERRL Musculoskeletal: limited flexion and extension of the lumbar spine secondary to pain. Deep tendon reflexes were normal in bilateral lower extremities. Motor exam was grossly intact in the bilateral lower extremities, antalgic gait noted. Neurological: Speech is clear, x ray developer equal, no gross sensory deficits Assessment:: Degenerative disc disease of the lumbar spine with lumbar radiculopathy Plan:: I discussed with the patient we will continue Gratis 7.5 mg 1 tablet p.o. 5 times daily number #150 for a 1-month supply and Lyrica 100 mg 1 tablet p.o. twice daily #60 for 1 month supply. We will follow-up with this patient in 1 month for reassessment of his chronic pain symptoms and medication refills. Nicolas and prior drug screens were reviewed and appropriate. [facility] History Medical History: Reports:: Atrial Fibrillation, Diabetes Mellitus Type 2, Hyperlipidemia, Internal Pacemaker Denies:: Cancer, Diabetes Mellitus Type 1, MRSA, Seizures *Have you ever received a pneumonia vaccine?: Yes *Have you received a flu vaccine this season?: Yes Other Medical History: Denies: Blood Transfusion Reaction Other Surgeries: Yes: Cholecystectomy, Hernia Repair, Pacemaker, Sinus Surgery, Other (lumpectomy) Amputation: No Fractures: No - *Social History Smoking Status: Former smoker Alcohol Intake: never *Occupational Status:: employed Housing: apartment Household Members: spouse *Travel in the last 8 weeks: None Family Hx:: Coronary Artery Disease, Diabetes, Heart Attack
[2021-07-18 18:10] LABS: Codeine Negative (Cutoff=100); Hydrocodone Positive (.); Hydromorphone Positive (.); Morphine Negative (Cutoff=100); Opiates Positive (.)
== END ==
PROVIDERS: Visit Provider Anesthesiology Pain Medicine
DX: M51.16 Intervertebral disc disorders with radiculopathy, lumbar region (principal); Z79.891 Long term (current) use of opiate analgesic
CPT/HCPCS: 80305; 80361; 80365; 99212; G0463; G0480

== ENCOUNTER → 2021-07-29 10:31 | Outpatient (CLI) | payer MEDICARE, BC, SELFPAY ==
--- NOTE | 2021-07-29 10:36 | XR_ITS ---
FINAL REPORT CLINICAL HISTORY: FALL a few days ago; RT LEG KNOT mid/lateral lower leg, BRUISING at ankle FINDINGS: RIGHT LOWER LEG 2 views were obtained. There is no acute fracture or dislocation. The joint spaces are intact. There is no soft tissue abnormality. IMPRESSION: No acute bony abnormality. Reviewed, Interpreted and Dictated by Moustapha Foster MD Transcribed by Emelia Marc Authenticated by Moustapha Foster MD on 07/29/2021 01:53:42 PM [facility]
== END ==
PROVIDERS: PCP Family Medicine; Visit Provider Family Medicine
DX: S80.11XA Contusion of right lower leg, initial encounter (principal)
CPT/HCPCS: 73590

== ENCOUNTER 2021-07-30 09:50 | Outpatient (CLI) | payer MEDICARE, BC, SELFPAY ==
[2021-07-30 13:04] LABS: PHA INR Fingerstick 2.2 (0.9-1.1)
== END 2021-07-30 13:05 | disposition home or self-care (01) ==
LOC: ACC 09:51
PROVIDERS: PCP Family Medicine; Visit Provider Nurse Practitioner Family
DX: Z51.81 Encounter for therapeutic drug level monitoring (principal); Z79.01 Long term (current) use of anticoagulants; I48.91 Unspecified atrial fibrillation
CPT/HCPCS: 85610; 99211; G0463

== ENCOUNTER → 2021-08-11 08:46 | Outpatient (POV) | payer MEDICARE, BC, SELFPAY ==
[2021-08-11 09:01] VITALS: BP 141/64; PULSE 80; RESP 20; TEMP 36.8; O2SAT 97; BMI 30.6
--- NOTE | 2021-08-11 09:17 | HMH.PAINSOAP ---
[facility] Pain Management SOAP Note Subjective:: Patient is a pleasant 62-year-old male who is here for medication refill and follow-up. Patient is currently being treated for degenerative disc disease of the lumbar spine with lumbar radiculopathy symptoms. Patient is being managed with [place] 7.5 mg 5 times a day and Lyrica 100 mg twice a day. Patient denies any side effects from the medications. Patient denies any changes to the location and type of pain. Patient states that this is adequately helping manage their pain. Rates pain as 8 out of 10. [facility] number [id number] with an active morphine equivalent 38. Drug screens have been reviewed and appropriate. Review of Systems: General: No recent weight changes, no fever, no sleep disturbances Respiratory: No cough, no shortness of air, no recurring pulmonary infections Cardiovascular/peripheral vascular: No chest pain, no palpitations, no edema, no shortness of breath Gastrointestinal: No new onset incontinence, normal bowel movements reported Genitourinary: No new onset incontinence Musculoskeletal: Low back pain Psychiatric: [Normal mood/affect] Neurological: [Denies weakness in extremities], [denies balance issues] Objective:: Physical Exam: General: Alert and oriented x3, no acute distress, pleasant and cooperative, [on room air] Lungs: Respirations even and unlabored, symmetrical chest expansion Eyes: PERRL Musculoskeletal: Flexion and extension of lumbar [spine] somewhat guarded secondary to pain, [antalgic gait noted] Neurological: Speech clear, no gross sensory deficit Assessment:: Degenerative disc disease of lumbar spine with lumbar radiculopathy symptoms Plan:: We will continue the patient's [place] 7.5 mg 5 times a day and Lyrica 100 mg twice a day. We will provide the patient with 1 month of refills. We would like to see the patient back in a month for follow-up and reevaluation of chronic pain syndrome. Patient has been advised of risks of oversedation with the prescribed medication. Narcan has been offered to the patient in the event of oversedation. Patient has been advised that a family member should also be educated regarding administration of Narcan. Patient has been instructed to contact the clinic with any concerns before the next appointment. Dr. Martel has reviewed this note and agrees with this plan of care. This note was dictated using voice recognition software and make contain errors or omissions. [facility] History Medical History: Reports:: Atrial Fibrillation, Diabetes Mellitus Type 2, Hyperlipidemia, Internal Pacemaker Denies:: Cancer, Diabetes Mellitus Type 1, MRSA, Seizures *Have you ever received a pneumonia vaccine?: Yes *Have you received a flu vaccine this season?: Yes Other Medical History: Denies: Blood Transfusion Reaction Other Surgeries: Yes: Cholecystectomy, Hernia Repair, Pacemaker, Sinus Surgery, Other (lumpectomy) Amputation: No Fractures: No - *Social History Smoking Status: Former smoker Alcohol Intake: never *Occupational Status:: other Housing: apartment Household Members: spouse *Travel in the last 8 weeks: None Family Hx:: Coronary Artery Disease, Diabetes, Heart Attack
== END ==
PROVIDERS: Visit Provider Student in an Organized Health Care Education/Training Program
DX: M51.16 Intervertebral disc disorders with radiculopathy, lumbar region (principal)
CPT/HCPCS: 99212; G0463

== ENCOUNTER → 2021-08-15 08:39 | Outpatient (CLI) | payer MEDICARE, BC, SELFPAY ==
[2021-08-15 09:35] LABS: INR 1.67 (0.9-1.1); Prothrombin Time 18.2 seconds (10.1-12.5)
[2021-08-15 10:03] LABS: Potassium 4.4 mmoL/L (3.5-5.1)
== END ==
PROVIDERS: PCP Family Medicine; Visit Provider Family Medicine
DX: Z51.81 Encounter for therapeutic drug level monitoring (principal); Z79.01 Long term (current) use of anticoagulants
CPT/HCPCS: 36415; 84132; 85610

== ENCOUNTER 2021-09-10 09:56 | Outpatient (CLI) | payer MEDICARE, BC, SELFPAY ==
[2021-09-10 11:02] LABS: PHA INR Fingerstick 1.8 (0.9-1.1)
== END 2021-09-10 11:36 | disposition home or self-care (01) ==
LOC: ACC 09:57
PROVIDERS: PCP Family Medicine; Visit Provider Nurse Practitioner Family
DX: Z51.81 Encounter for therapeutic drug level monitoring (principal); Z79.01 Long term (current) use of anticoagulants; I48.91 Unspecified atrial fibrillation
CPT/HCPCS: 85610; 99211; G0463

== ENCOUNTER → 2021-09-11 09:24 | Outpatient (POV) | payer MEDICARE, BC, SELFPAY ==
[2021-09-11 09:29] VITALS: BP 144/64; PULSE 84; RESP 18; TEMP 36.6; O2SAT 97; BMI 30.6
--- NOTE | 2021-09-11 09:34 | HMH.PAINSOAP ---
[facility] Pain Management SOAP Note Subjective:: Patient is a pleasant 70-year-old male who is here for medication refill and follow-up. Patient is currently being treated for degenerative disc disease of lumbar spine with lumbar radiculopathy symptoms. Patient is being managed with [place] 7.5 mg 5 times a day, Lyrica 100 mg twice a day. Patient denies any side effects from the medications. Patient denies any changes to the location and type of pain. Patient states that this is adequately helping manage their pain. Rates pain as 8 out of 10. [facility] number [id number] with an active morphine equivalent 30. Drug screens have been reviewed and appropriate. Review of Systems: General: No recent weight changes, no fever, no sleep disturbances Respiratory: No cough, no shortness of air, no recurring pulmonary infections Cardiovascular/peripheral vascular: No chest pain, no palpitations, no edema, no shortness of breath Gastrointestinal: No new onset incontinence, normal bowel movements reported Genitourinary: No new onset incontinence Musculoskeletal: Low back pain Psychiatric: [Normal mood/affect] Neurological: [Denies weakness in extremities], [denies balance issues] Objective:: Physical Exam: General: Alert and oriented x3, no acute distress, pleasant and cooperative Lungs: Respirations even and unlabored, symmetrical chest expansion Eyes: PERRL Musculoskeletal: Flexion and extension of lumbar [spine] somewhat guarded secondary to pain, [antalgic gait noted] Neurological: Speech clear, no gross sensory deficit Assessment:: Degenerative disc disease of lumbar spine with lumbar radiculopathy symptoms Plan:: We will continue the patient's Lyrica 100 mg twice a day and [place]enh[place] 7.5 mg 5 times a day. We will provide the patient with 1 month of refills. We would like to see the patient back in 1 month for follow-up and reevaluation of chronic pain syndrome. Patient has been advised of risks of oversedation with the prescribed medication. Narcan has been offered to the patient in the event of oversedation. Patient has been advised that a family member should also be educated regarding administration of Narcan. Patient has been instructed to contact the clinic with any concerns before the next appointment. Dr. Martel has reviewed this note and agrees with this plan of care. This note was dictated using voice recognition software and make contain errors or omissions. [facility] History Medical History: Reports:: Atrial Fibrillation, Diabetes Mellitus Type 2, Hyperlipidemia, Internal Pacemaker Denies:: Cancer, Diabetes Mellitus Type 1, MRSA, Seizures *Have you ever received a pneumonia vaccine?: Yes *Have you received a flu vaccine this season?: Yes Other Medical History: Denies: Blood Transfusion Reaction Other Surgeries: Yes: Cholecystectomy, Hernia Repair, Pacemaker, Sinus Surgery, Other (lumpectomy) Amputation: No Fractures: No - *Social History Smoking Status: Former smoker Alcohol Intake: never *Occupational Status:: retired Housing: apartment Household Members: spouse *Travel in the last 8 weeks: None Family Hx:: Coronary Artery Disease, Diabetes, Heart Attack
== END ==
PROVIDERS: Visit Provider Student in an Organized Health Care Education/Training Program
DX: M51.16 Intervertebral disc disorders with radiculopathy, lumbar region (principal)
CPT/HCPCS: 99212; G0463

== ENCOUNTER → 2021-10-13 09:15 | Outpatient (POV) | payer MEDICARE, BC, SELFPAY ==
[2021-10-13 10:02] VITALS: BP 141/66; PULSE 85; RESP 18; TEMP 36.6; O2SAT 98; BMI 30.6
--- NOTE | 2021-10-13 10:58 | HMH.PAINSOAP ---
[facility] Pain Management SOAP Note Subjective:: Patient is a pleasant 70-year-old male who is here for medication refill and follow-up. Patient is currently being treated for degenerative disc disease of lumbar spine with lumbar radiculopathy symptoms. Patient is being managed with [place] 7.5 mg 5 times a day and Lyrica 100 mg twice a day. Patient denies any side effects from the medications. Patient denies any changes to the location and type of pain. Patient states that this is adequately helping manage their pain. Rates pain as 8 out of 10. [facility] number [id number] with an active morphine equivalent 38. Drug screen on July 10, 2021 has been reviewed and appropriate. Review of Systems: General: No recent weight changes, no fever, no sleep disturbances Respiratory: No cough, no shortness of air, no recurring pulmonary infections Cardiovascular/peripheral vascular: No chest pain, no palpitations, no edema, no shortness of breath Gastrointestinal: No new onset incontinence, normal bowel movements reported Genitourinary: No new onset incontinence Musculoskeletal: Low back pain Psychiatric: [Normal mood/affect] Neurological: [Denies weakness in extremities], [denies balance issues] Objective:: Physical Exam: General: Alert and oriented x3, no acute distress, pleasant and cooperative Lungs: Respirations even and unlabored, symmetrical chest expansion Eyes: PERRL Musculoskeletal: Flexion and extension of lumbar [spine] somewhat guarded secondary to pain, [antalgic gait noted] Neurological: Speech clear, no gross sensory deficit Assessment:: Degenerative disc disease of lumbar spine with lumbar radiculopathy symptoms Plan:: We will continue the patient's Lyrica 100 mg twice a day and D[place]ott 7.5 mg 5 times a day. We will provide the patient with 1 month of refills. We would like to see the patient back in 1 month for follow-up and reevaluation of chronic pain syndrome. Patient has been advised of risks of oversedation with the prescribed medication. Narcan has been offered to the patient in the event of oversedation. Patient has been advised that a family member should also be educated regarding administration of Narcan. Patient has been instructed to contact the clinic with any concerns before the next appointment. Dr. Martel has reviewed this note and agrees with this plan of care. This note was dictated using voice recognition software and make contain errors or omissions. [facility] History Medical History: Reports:: Atrial Fibrillation, Diabetes Mellitus Type 2, Hyperlipidemia, Internal Pacemaker Denies:: Cancer, Diabetes Mellitus Type 1, MRSA, Seizures *Have you ever received a pneumonia vaccine?: Yes *Have you received a flu vaccine this season?: Yes Other Medical History: Denies: Blood Transfusion Reaction Other Surgeries: Yes: Cholecystectomy, Hernia Repair, Pacemaker, Sinus Surgery, Other (lumpectomy) Amputation: No Fractures: No - *Social History Smoking Status: Former smoker Alcohol Intake: never *Occupational Status:: retired Housing: apartment Household Members: spouse *Travel in the last 8 weeks: None Family Hx:: Coronary Artery Disease, Diabetes, Heart Attack
== END ==
PROVIDERS: Visit Provider Student in an Organized Health Care Education/Training Program
DX: M51.16 Intervertebral disc disorders with radiculopathy, lumbar region (principal); G89.4 Chronic pain syndrome
CPT/HCPCS: 99212; G0463

== ENCOUNTER 2021-10-22 09:53 | Outpatient (CLI) | payer MEDICARE, BC, SELFPAY ==
[2021-10-22 14:10] LABS: PHA INR Fingerstick 2.3 (0.9-1.1)
== END 2021-10-22 14:12 | disposition home or self-care (01) ==
LOC: ACC 09:53
PROVIDERS: PCP Family Medicine; Visit Provider Nurse Practitioner Family
DX: Z51.81 Encounter for therapeutic drug level monitoring (principal); Z79.01 Long term (current) use of anticoagulants; I48.91 Unspecified atrial fibrillation
CPT/HCPCS: 85610; 99211; G0463

== ENCOUNTER → 2021-11-11 10:06 | Outpatient (POV) | payer MEDICARE, BC, SELFPAY ==
[2021-11-11 10:13] VITALS: BP 148/67; PULSE 89; RESP 20; TEMP 36.5; O2SAT 98; BMI 29.9
--- NOTE | 2021-11-11 10:35 | P.CONS_ITS ---
[facility] Pain Management SOAP Note Subjective:: Patient is a pleasant 71-year-old male who is here for medication refill and follow-up. Patient is currently being treated for degenerative disease of lumbar spine with lumbar radiculopathy symptoms, mid back pain. Patient is being managed with Jefferson 7.5 mg 5 times a day and Lyrica 100 mg twice a day. Patient denies any side effects from the medications. Patient denies any changes to the location and type of pain. Patient states that this is adequately helping manage their pain. Rates pain as 8 out of 10. [facility] number [id number] with an active morphine equivalent 38. Drug screens have been reviewed and appropriate. Review of Systems: General: No recent weight changes, no fever, no sleep disturbances Respiratory: No cough, no shortness of air, no recurring pulmonary infections Cardiovascular/peripheral vascular: No chest pain, no palpitations, no edema, no shortness of breath Gastrointestinal: No new onset incontinence, normal bowel movements reported Genitourinary: No new onset incontinence Musculoskeletal: Mid back and low back pain Psychiatric: [Normal mood/affect] Neurological: [Denies weakness in extremities], [denies balance issues] Objective:: Physical Exam: General: Alert and oriented x3, no acute distress, pleasant and cooperative Lungs: Respirations even and unlabored, symmetrical chest expansion Eyes: PERRL Musculoskeletal: Flexion and extension of lumbar [spine] somewhat guarded secondary to pain, [antalgic gait noted] Neurological: Speech clear, no gross sensory deficit Assessment:: Degenerative disc disease of the lumbar spine with lumbar radiculopathy symptoms Plan:: We will continue the patient's Jefferson 7.5 mg 5 times a day and pregabalin 100 mg twice a day. We will provide the patient with 1 month of refills. We would like to see the patient back in 1 month for follow-up and reevaluation of chronic pain syndrome. Patient has been advised of risks of oversedation with the prescribed medication. Narcan has been offered to the patient in the event of oversedation. Patient has been advised that a family member should also be educated regarding administration of Narcan. Patient has been instructed to contact the clinic with any concerns before the next appointment. Dr. Martel has reviewed this note and agrees with this plan of care. This note was dictated using voice recognition software and make contain errors or omissions. [facility] History Medical History: Reports:: Atrial Fibrillation, Diabetes Mellitus Type 2, Hyperlipidemia, Internal Pacemaker Denies:: Cancer, Diabetes Mellitus Type 1, MRSA, Seizures *Have you ever received a pneumonia vaccine?: Yes *Have you received a flu vaccine this season?: Yes Other Medical History: Denies: Blood Transfusion Reaction Other Surgeries: Yes: Cholecystectomy, Hernia Repair, Pacemaker, Sinus Surgery, Other (lumpectomy) Amputation: No Fractures: No - *Social History Smoking Status: Former smoker Alcohol Intake: never *Occupational Status:: other Housing: apartment Household Members: spouse *Travel in the last 8 weeks: None Family Hx:: Coronary Artery Disease, Diabetes, Heart Attack
[2021-11-11 16:24] LABS: Amphetamine/Metha Screen,Urine Negative ng/ml (<1000)
[2021-11-11 16:25] LABS: Barbiturates Screen,Urine Negative ng/ml (<200); Benzodiazepines Screen,Urine Negative ng/ml (<200)
[2021-11-11 16:26] LABS: Cannabinoid Screen,Urine Negative ng/ml (<50)
[2021-11-11 16:27] LABS: Cocaine Screen,Urine Negative ng/ml (<300); Methadone Screen,Urine Negative ng/ml (<300)
[2021-11-11 16:28] LABS: Opiate Screen,Urine Positive ng/ml (<300); Phencyclidine Screen,Urine Negative ng/ml (<25)
[2021-11-18 15:11] LABS: Codeine Negative (Cutoff=100); Hydrocodone Positive (.); Hydromorphone Positive (.); Morphine Negative (Cutoff=100); Opiates Positive (.)
== END ==
PROVIDERS: Visit Provider Student in an Organized Health Care Education/Training Program
DX: Z79.891 Long term (current) use of opiate analgesic (principal); M51.16 Intervertebral disc disorders with radiculopathy, lumbar region
CPT/HCPCS: 80305; 80361; 80365; 99212; G0463; G0480

== ENCOUNTER 2021-12-03 08:53 | Outpatient (CLI) | payer MEDICARE, BC, SELFPAY ==
[2021-12-03 11:25] LABS: PHA INR Fingerstick 2.3 (0.9-1.1)
== END 2021-12-03 11:35 | disposition home or self-care (01) ==
PROVIDERS: PCP Family Medicine; Visit Provider Nurse Practitioner Family
DX: Z51.81 Encounter for therapeutic drug level monitoring (principal); Z79.01 Long term (current) use of anticoagulants; I48.91 Unspecified atrial fibrillation
CPT/HCPCS: 85610; 99211; G0463

== ENCOUNTER 2021-12-09 19:56 | Emergency (ER) | payer MEDICARE, BC, SELFPAY ==
[2021-12-09 19:58] VITALS: BP 166/67; PULSE 86; RESP 18; TEMP 37.2; O2SAT 99; BMI 30.6
--- NOTE | 2021-12-09 20:16 | XR_ITS ---
PROCEDURE INFORMATION: Exam: XR Right Hand Exam date and time: 12/09/2021 8:51 PM Age: 71 years old Clinical indication: Pain; Swelling; Hand; Right; Additional info: Pain, swelling, injury TECHNIQUE: Imaging protocol: Radiologic exam of the Right hand. Views: 3 or more views. COMPARISON: No relevant prior studies available. FINDINGS: Bones/joints: Mild osteoarthritis at the 1st carpometacarpal joint, 1st, 2nd, and 3rd metacarpophalangeal joints, and throughout the distal interphalangeal joints. No acute fracture, dislocation, or aggressive skeletal lesion. Soft tissues: Swelling at the dorsal hand. IMPRESSION: 1. Mild osteoarthritis without acute skeletal pathology. 2. Dorsal hand swelling.
--- NOTE | 2021-12-09 20:16 | HMH.EDGENADL ---
ED Disposition Clinical Impression: Traumatic hematoma of hand Qualifiers: Encounter type: initial encounter Laterality: right Qualified Code(s): S60.221A - Contusion of right hand, initial encounter Disposition: Home, Self-Care Condition on Discharge: Good Instructions: DI for Hematoma (Bruise) Additional Instructions: You have been evaluated for pain and swelling at the base of the middle finger of the right hand. Given diagnosed with a hematoma, this is a deep bruise or blood collection. It should go away on its own. Keep the hand wrapped, use compression and elevation. Continue taking warfarin as prescribed. Follow-up with your primary care doctor. Return to the emergency department for any new or worsening symptoms, pain, swelling, redness or signs of infection. Referrals: Francisco Kuhn MD [Primary Care Provider] - Time of Disposition: 21:09 - Critical Care Critical Care Time: No Attestation: On 12/09/21, the high probability of a clinically significant, sudden or life threatening deterioration of the following system(s) required my full and direct attention, intervention and personal management. The time I documented below is in addition to time spent performing reported procedures but includes the following listed in this critical care notation. Medical Decision Making - Medical Records Medical records reviewed: Yes: I reviewed the patient's medical records. - Nicolas Inquiry Pt receiving controlled substance: No Vital Signs: 12/09/21 19:58 12/09/21 21:01 12/09/21 21:30 Temperature 98.9 F Temperature Source Oral Pulse Rate 82 80 Pulse Rate [Right] 86 Respiratory Rate 18 Blood Pressure 128/76 151/72 H Blood Pressure [Right Arm] 166/67 H Blood Pressure Mean 93 Blood Pressure Mean [Right Arm] 100 02 Sat by Pulse Oximetry 99 96 95 - Radiology Data #1 Image(s): Hand Image Reviewed: Yes I reviewed the patient's radiology results, Yes I have reviewed radiologist's interpretation Preliminary Findings: Normal/NAD IMPRESSION: 1. Mild osteoarthritis without acute skeletal pathology. 2. Dorsal hand swelling. Medical Decision Narrative: In summary this is a 71-year-old male anticoagulated on warfarin, presenting to the emergency department with an area of swelling at the base of the right middle finger, dorsal. Patient clinically stable on arrival. Vital signs within normal limits. Will obtain x-ray to assess for fracture or other bony changes. X-rays reassuring, no fracture of the small phalanx or third metacarpal. Her presentation is most concerning for a localized hematoma. Hand wrapped with Coban. Patient instructed on conservative management, compression and elevation. Recommended PCP follow-up. Continue taking warfarin as prescribed. Given return precautions. Stable for discharge. General Adult HPI - General Stated complaint: knot on R hand Time Seen by Provider: 12/09/21 20:16 Mode of Arrival: Ambulatory Source of Information: Patient Limitations: No Limitations - History of Present Illness HPI narrative: 71yo male presenting the emergency department with swelling of the right hand. Swelling is located on the dorsal aspect of the hand, near the knuckle of the middle finger. It is about 1 cm x 1 cm in size. He had an injury about 2 days ago, struck the back of his hand while tying a garbage bag. Today, he repeat injured it. He has pain described as occasional and throbbing. Pain with flexion of the middle finger. No pain with motion at the other joints. No numbness, weakness, tingling in the finger. He takes warfarin, most recent INR was 2.4 last week. He does bruise easily. No breaks in the skin. - Related Data Home Medications Medication Instructions Recorded Confirmed Aspirin [Aspir 81] 81 mg PO DAILY 02/22/18 11/11/21 Azelastine HCl [Astepro] 205.5 mcg NS DAILY 02/22/18 11/11/21 Fenofibrate,Micronized [Tricor 145 mg PO DAILY
[2021-12-09 21:01] VITALS: BP 128/76; PULSE 82; O2SAT 96
[2021-12-09 21:30] VITALS: BP 151/72; PULSE 80; O2SAT 95
--- NOTE | 2021-12-09 21:34 | PC.NURSE ---
rounded on pt , voiced no c/o updated on waiting xray results
[2021-12-09 22:07] VITALS: BP 134/78; PULSE 80; RESP 18; TEMP 37.2; O2SAT 97
== END 2021-12-09 22:08 | disposition home or self-care (01) ==
PROVIDERS: Emergency Provider Emergency Medicine; PCP Family Medicine
DX: S60.221A Contusion of right hand, initial encounter (principal); Y93.E9 Activity, other interior property and clothing maintenance; M19.041 Primary osteoarthritis, right hand; Z79.82 Long term (current) use of aspirin; Z79.01 Long term (current) use of anticoagulants; Z79.84 Long term (current) use of oral hypoglycemic drugs; Z79.899 Other long term (current) drug therapy; Z88.1 Allergy status to other antibiotic agents; I48.91 Unspecified atrial fibrillation; E11.9 Type 2 diabetes mellitus without complications; E78.5 Hyperlipidemia, unspecified; Z95.0 Presence of cardiac pacemaker
CPT/HCPCS: 73130; 99283

== ENCOUNTER → 2021-12-11 11:22 | Outpatient (POV) | payer MEDICARE, BC, SELFPAY ==
[2021-12-11 11:29] VITALS: BP 164/62; PULSE 91; RESP 20; O2SAT 97; BMI 30.6
--- NOTE | 2021-12-11 11:35 | HMH.PAINSOAP ---
[facility] Pain Management SOAP Note Subjective:: Patient is a pleasant 71-year-old male that presents today for medication refill and follow-up. We are currently treating the patient for degenerative disc disease of lumbar spine with lumbar radiculopathy symptoms, mid back pain. Today the patient rates his pain an 8 out of 10. He states his pain is all in his mid back area and describes it as an aching sensation that is worse with activity. We are currently managing his pain with [place] 7.5 mg 5 times a day and Lyrica 100 mg twice a day. Patient denies any side effects from these medications. He denies any change to the location and type of pain he experiences. He is does state these medications are helping adequately manage his pain. Patient states he has used compounding cream in the past that did give some relief however he has not had a prescription of this medication for a little while. His Nicolas is [id number]. It has been reviewed and appropriate. Review of Systems: General: No recent weight changes, no fever, no sleep disturbances Respiratory: No cough, no shortness of air, no recurring pulmonary infections Cardiovascular/peripheral vascular: No chest pain, no palpitations, no edema, no shortness of breath Gastrointestinal: No new onset incontinence, normal bowel movements reported Genitourinary: No new onset incontinence Musculoskeletal: Mid/low back pain Psychiatric: [Normal mood/affect] Neurological: [Denies weakness in extremities], [denies balance issues] Objective:: Physical Exam: General: Alert and oriented x3, no acute distress, pleasant and cooperative Lungs: Respirations even and unlabored, symmetrical chest expansion Eyes: PERRL Musculoskeletal: Flexion and extension of [lumbar [spine] somewhat guarded secondary to pain, [antalgic gait noted] Neurological: Speech clear, no gross sensory deficit Assessment:: degenerative disc disease of lumbar spine with lumbar radiculopathy symptoms, mid back pain Plan:: Patient experiences significant pain in his mid/low back region. We will refill the patient's [place] 7.5 mg 5 times a day and Lyrica 100 mg twice a day. We will provide a 1 month supply of these medications. I will also prescribe the patient a compounding cream at today's visit. Patient will return to clinic in 1 month for medication refill and reevaluation of symptoms. Patient has been advised of the risk of oversedation with the prescribed medication. Patient has been instructed to contact the clinic with any concerns before the next appointment. Dr. Martel has reviewed this note and agrees with this plan of care. This note was dictated using voice recognition software and make contain errors or omissions. [facility] History I have reviewed the patient's past medical history: Yes Medical History: Reports:: Atrial Fibrillation, Diabetes Mellitus Type 2, Hyperlipidemia, Internal Pacemaker Denies:: Cancer, Diabetes Mellitus Type 1, MRSA, Seizures *Have you ever received a pneumonia vaccine?: Yes *Have you received a flu vaccine this season?: Yes Other Medical History: Denies: Blood Transfusion Reaction Other Surgeries: Yes: Cholecystectomy, Hernia Repair, Pacemaker, Sinus Surgery, Other (lumpectomy) Amputation: No Fractures: No - *Social History Smoking Status: Former smoker Alcohol Intake: never *Occupational Status:: other Housing: apartment Household Members: spouse *Travel in the last 8 weeks: None Family Hx:: Coronary Artery Disease, Diabetes, Heart Attack
== END ==
PROVIDERS: PCP Family Medicine; Visit Provider Nurse Practitioner Family
DX: M51.16 Intervertebral disc disorders with radiculopathy, lumbar region (principal); M54.9 Dorsalgia, unspecified
CPT/HCPCS: 99212; G0463

== ENCOUNTER → 2022-01-08 10:12 | Outpatient (POV) | payer MEDICARE, BC, SELFPAY ==
[2022-01-08 10:18] VITALS: BP 155/66; PULSE 80; RESP 18; TEMP 36.4; O2SAT 96; BMI 30.2
--- NOTE | 2022-01-08 10:20 | EXP.PAIN.SOA ---
[facility] Pain Management SOAP Note Subjective:: Patient is a pleasant 71-year-old male who presents today for follow-up and medication refill. We are currently treating the patient for degenerative disc disease of lumbar spine with lumbar radiculopathy symptoms, mid back pain. Today he rates his pain a 8 out of 10. He states his pain is all primarily in his mid back and describes it as an aching sensation that is worse with increased activity. We are currently managing his pain with [place] 7.5 mg 5 times a day and Lyrica 100 mg twice a day. Patient denies any side effects from this medication. He states this medication is adequately managing his pain. He was reviewed requesting refills of these medications at today's visit. Patient is also prescribed compounding cream that he states provides some relief of his symptoms. His Nicolas is [id number]. It has been reviewed and appropriate. Review of Systems: General: No recent weight changes, no fever, no sleep disturbances Respiratory: No cough, no shortness of air, no recurring pulmonary infections Cardiovascular/peripheral vascular: No chest pain, no palpitations, no edema, no shortness of breath Gastrointestinal: No new onset incontinence, normal bowel movements reported Genitourinary: No new onset incontinence Musculoskeletal: Mid/low back pain Psychiatric: [Normal mood/affect] Neurological: [Denies weakness in extremities], [denies balance issues] Objective:: Physical Exam: General: Alert and oriented x3, no acute distress, pleasant and cooperative Lungs: Respirations even and unlabored, symmetrical chest expansion Eyes: PERRL Musculoskeletal: Flexion and extension of lumbar [spine] somewhat guarded secondary to pain, [antalgic gait noted] Neurological: Speech clear, no gross sensory deficit Assessment:: Degenerative disc disease of lumbar spine with lumbar radiculopathy symptoms, mid back pain Plan:: Patient continues to experience significant pain along his mid to low back region. I will refill the patient's [place] 7.5 mg 5 times a day and Lyrica 100 mg twice a day. I will provide a 1 month supply of this medication. Patient will return to clinic in 1 month for reevaluation of symptoms and medication refill. Patient has been advised of risks of oversedation with the prescribed medication. Narcan has been offered to the patient in the event of oversedation. Patient has been advised that a family member should also be educated regarding administration of Narcan. Patient has been instructed to contact the clinic with any concerns before the next appointment. Dr. Martel has reviewed this note and agrees with this plan of care. This note was dictated using voice recognition software and make contain errors or omissions. PFSH PFSH Social History Smoking Status: Former smoker alcohol intake: never current occupational status: retired Travel in the last 8 weeks: None household members: spouse housing: apartment current occupational exposures/hazards: No caffeine: No
== END | disposition home or self-care (01) ==
PROVIDERS: PCP Family Medicine; Visit Provider Nurse Practitioner Family
DX: M51.16 Intervertebral disc disorders with radiculopathy, lumbar region (principal)
CPT/HCPCS: 99212; G0463

== ENCOUNTER 2022-01-14 08:53 | Outpatient (CLI) | payer MEDICARE, BC, SELFPAY ==
[2022-01-14 15:20] LABS: PHA INR Fingerstick 1.9 (0.9-1.1)
== END 2022-01-14 15:23 ==
LOC: ACC 08:53
PROVIDERS: PCP Family Medicine; Visit Provider Family Medicine
DX: Z51.81 Encounter for therapeutic drug level monitoring (principal); Z79.01 Long term (current) use of anticoagulants; I48.91 Unspecified atrial fibrillation
CPT/HCPCS: 85610; 99211; G0463

== ENCOUNTER → 2022-02-11 10:30 | Outpatient (POV) | payer MEDICARE, BC, SELFPAY ==
[2022-02-11 11:02] VITALS: BP 148/60; PULSE 80; RESP 18; TEMP 36.8; O2SAT 97; BMI 29.9
--- NOTE | 2022-02-11 11:15 | A.OFFVIS_ITS ---
[facility] Pain Management SOAP Note Subjective:: Patient is a pleasant 71-year-old male who presents today for medication refill and follow-up. We are currently treating the patient for degenerative disc disease of lumbar spine with lumbar radiculopathy symptoms, mid back pain. Today he rates his pain an 8 out of 10. He states the pain is in his mid to low back and describes it as a aching sensation. Patient denies any new trauma or injury. He denies any change in location or type of pain he experiences. He is currently managed with [place] 7.5 mg 5 times a day and Lyrica 100 mg twice a day. Patient denies any side effects from these medications. He states these medications do adequately manage his pain. He is requesting refills at today's visit. He is also prescribed compounding cream that he states provides significant improvement of his symptoms. His Nicolas is [id number]. It has been reviewed and appropriate. Review of Systems: General: No recent weight changes, no fever, no sleep disturbances Respiratory: No cough, no shortness of air, no recurring pulmonary infections Cardiovascular/peripheral vascular: No chest pain, no palpitations, no edema, no shortness of breath Gastrointestinal: No new onset incontinence, normal bowel movements reported Genitourinary: No new onset incontinence Musculoskeletal: Mid/low back pain Psychiatric: [Normal mood/affect] Neurological: [Denies weakness in extremities], [denies balance issues] Objective:: Physical Exam: General: Alert and oriented x3, no acute distress, pleasant and cooperative Lungs: Respirations even and unlabored, symmetrical chest expansion Eyes: PERRL Musculoskeletal: Flexion and extension of lumbar [spine] somewhat guarded secondary to pain, [antalgic gait noted] Neurological: Speech clear, no gross sensory deficit Assessment:: Degenerative disc disease of lumbar spine with lumbar radiculopathy symptoms, mid back pain Plan:: Patient continues to have significant pain in his mid/low back. He did have limited range of motion of his lumbar spine during today's visit however he is currently managed well with his current medication regimen. I will reorder the patient's [place] 7.5 mg 5 times a day and his pregabalin 100 mg twice a day and provide a 1 month supply of this medication. Patient will return to clinic in 1 month for reevaluation of symptoms, medication refill and follow-up. Patient has been advised of risks of oversedation with the prescribed medication. Narcan has been offered to the patient in the event of oversedation. Patient has been advised that a family member should also be educated regarding administration of Narcan. Patient has been instructed to contact the clinic with any concerns before the next appointment. Dr. Martel has reviewed this note and agrees with this plan of care. This note was dictated using voice recognition software and make contain errors or omissions. PFSH PFSH Social History Smoking Status: Former smoker alcohol intake: never current occupational status: retired Travel in the last 8 weeks: None household members: spouse housing: apartment current occupational exposures/hazards: No caffeine: No
== END | disposition home or self-care (01) ==
PROVIDERS: PCP Family Medicine; Visit Provider Nurse Practitioner Family
DX: M51.16 Intervertebral disc disorders with radiculopathy, lumbar region (principal)
CPT/HCPCS: 99212; G0463

== ENCOUNTER → 2022-02-11 11:24 | Outpatient (CLI) | payer MEDICARE, BC, SELFPAY ==
[2022-02-11 13:20] LABS: Amphetamine/Metha Screen,Urine Negative ng/ml (<1000); Barbiturates Screen,Urine Negative ng/ml (<200)
[2022-02-11 13:21] LABS: Benzodiazepines Screen,Urine Negative ng/ml (<200)
[2022-02-11 13:22] LABS: Cannabinoid Screen,Urine Negative ng/ml (<50); Cocaine Screen,Urine Negative ng/ml (<300)
[2022-02-11 13:23] LABS: Methadone Screen,Urine Negative ng/ml (<300)
[2022-02-11 13:24] LABS: Opiate Screen,Urine Positive ng/ml (<300); Phencyclidine Screen,Urine Negative ng/ml (<25)
[2022-02-16 19:16] LABS: Codeine Negative (Cutoff=100); Hydrocodone Positive (.); Hydromorphone Positive (.); Morphine Negative (Cutoff=100); Opiates Positive (.)
== END ==
PROVIDERS: PCP Family Medicine; Visit Provider Nurse Practitioner Family
DX: Z79.891 Long term (current) use of opiate analgesic (principal)
CPT/HCPCS: 80305; 80361; 80365; 99212; G0463; G0480

== ENCOUNTER 2022-03-06 12:50 | Outpatient (CLI) | payer MEDICARE, BC, SELFPAY ==
[2022-03-06 16:05] LABS: PHA INR Fingerstick 2.3 (0.9-1.1)
== END 2022-03-06 16:16 ==
LOC: ACC 12:51
PROVIDERS: PCP Family Medicine; Visit Provider Family Medicine
DX: Z51.81 Encounter for therapeutic drug level monitoring (principal); Z79.01 Long term (current) use of anticoagulants; I48.91 Unspecified atrial fibrillation
CPT/HCPCS: 85610; 99211; G0463

== ENCOUNTER → 2022-03-12 11:01 | Outpatient (POV) | payer MEDICARE, BC, SELFPAY ==
--- NOTE | 2022-03-12 11:10 | A.OFFVIS_ITS ---
[facility] Pain Management SOAP Note Subjective:: Patient is a pleasant 71-year-old male who presents today for follow-up and medication refill. We are currently treating the patient for degenerative disc disease of lumbar spine with lumbar radiculopathy symptoms, mid back pain. Today he rates his pain an 8 out of 10. He states the pain is in his mid to low back. Patient denies any new trauma or injury. He denies any change in location or type of pain he experiences. Patient is managed with [place] 7.5 mg 5 times a day and Lyrica 100 mg twice a day. Patient denies any side effects from this medication. He states this medication does adequately manage his pain symptoms. Patient is also prescribed compounding cream that he states provides additional improvement of his symptoms. Patient does not need any additional refills on his cream at this time. His Nicolas is [id number]. It is been reviewed and appropriate. Review of Systems: General: No recent weight changes, no fever, no sleep disturbances Respiratory: No cough, no shortness of air, no recurring pulmonary infections Cardiovascular/peripheral vascular: No chest pain, no palpitations, no edema, no shortness of breath Gastrointestinal: No new onset incontinence, normal bowel movements reported Genitourinary: No new onset incontinence Musculoskeletal: Mid/low back pain Psychiatric: [Normal mood/affect] Neurological: [Denies weakness in extremities], [denies balance issues] Objective:: Physical Exam: General: Alert and oriented x3, no acute distress, pleasant and cooperative Lungs: Respirations even and unlabored, symmetrical chest expansion Eyes: PERRL Musculoskeletal: Flexion and extension of thoracic, lumbar [spine] somewhat guarded secondary to pain, [antalgic gait noted] Neurological: Speech clear, no gross sensory deficit Assessment:: Degenerative disc disease of lumbar spine with lumbar radiculopathy symptoms, mid back pain Plan:: Patient continues to have significant pain in his mid to low back however he is managed well with his current medication regimen. I will refill the patient's [place] 7.5 mg 5 times a day and pregabalin 100 mg twice a day and provide a 1 month supply of this medication. Patient will return to clinic in 1 month for reevaluation of symptoms, medication refill and follow-up. Patient has been advised of risks of oversedation with the prescribed medication. Narcan has been offered to the patient in the event of oversedation. Patient has been advised that a family member should also be educated regarding administration of Narcan. Patient has been instructed to contact the clinic with any concerns before the next appointment. Dr. Martel has reviewed this note and agrees with this plan of care. This note was dictated using voice recognition software and make contain errors or omissions. PFSH PFSH Social History Smoking Status: Former smoker alcohol intake: never current occupational status: retired Travel in the last 8 weeks: None household members: spouse housing: apartment current occupational exposures/hazards: No caffeine: No
[2022-03-12 11:30] VITALS: BP 153/65; PULSE 80; RESP 20; BMI 29.9
== END | disposition home or self-care (01) ==
PROVIDERS: PCP Family Medicine; Visit Provider Nurse Practitioner Family
DX: M51.16 Intervertebral disc disorders with radiculopathy, lumbar region (principal)
CPT/HCPCS: 99212; G0463

== ENCOUNTER 2022-04-01 09:57 | Outpatient (CLI) | payer MEDICARE, BC, SELFPAY ==
[2022-04-01 14:54] LABS: PHA INR Fingerstick 2.1 (0.9-1.1)
== END 2022-04-01 15:08 ==
LOC: ACC 09:58
PROVIDERS: PCP Family Medicine; Visit Provider Family Medicine
DX: Z51.81 Encounter for therapeutic drug level monitoring (principal); Z79.01 Long term (current) use of anticoagulants; I48.91 Unspecified atrial fibrillation
CPT/HCPCS: 85610; 99211; G0463

== ENCOUNTER → 2022-04-13 09:34 | Outpatient (POV) | payer MEDICARE, BC, SELFPAY ==
--- NOTE | 2022-04-13 09:53 | A.OFFVIS_ITS ---
[facility] Pain Management SOAP Note Subjective:: Patient is a pleasant 71-year-old male who presents today for medication refill and follow-up. We are currently treating the patient for degenerative disc disease of lumbar spine with lumbar radiculopathy symptoms, mid back pain. Today he rates his pain a 8 out of 10. Patient denies any new trauma or injury. Patient denies any change in location or type of pain he experiences. Patient is currently managed with [place] 7.5 mg 5 times a day and pregabalin 100 mg twice a day. Patient denies any side effects from this medication. He states this medication does adequately manage his pain symptoms. Patient is also prescribed compounding cream that he states provides additional improvement. Patient is requesting refills on his [place] and pregabalin. His Nicolas is [id number]. It has been reviewed and appropriate. Review of Systems: General: No recent weight changes, no fever, no sleep disturbances Respiratory: No cough, no shortness of air, no recurring pulmonary infections Cardiovascular/peripheral vascular: No chest pain, no palpitations, no edema, no shortness of breath Gastrointestinal: No new onset incontinence, normal bowel movements reported Genitourinary: No new onset incontinence Musculoskeletal: Low back pain, leg pain Psychiatric: [Normal mood/affect] Neurological: [Denies weakness in extremities], [denies balance issues] Objective:: Physical Exam: General: Alert and oriented x3, no acute distress, pleasant and cooperative Lungs: Respirations even and unlabored, symmetrical chest expansion Eyes: PERRL Musculoskeletal: Flexion and extension of lumbar [spine] somewhat guarded secondary to pain, [antalgic gait noted] Neurological: Speech clear, no gross sensory deficit Assessment:: Degenerative disc disease of lumbar spine with lumbar radiculopathy symptoms, mid back pain Plan:: Patient continues to experience significant pain in his low back with radiating symptoms into his lower extremities however he is doing well with his current medication regimen. I will refill the patient's [place] 7.5 mg 5 times a day and pregabalin 100 mg twice a day and provide a 1 month supply of this medication. Patient will return to clinic in 1 month for follow-up, medication refill and reevaluation of symptoms. Patient has been advised of risks of oversedation with the prescribed medication. Narcan has been offered to the patient in the event of oversedation. Patient has been advised that a family member should also be educated regarding administration of Narcan. Patient has been instructed to contact the clinic with any concerns before the next appointment. Dr. Martel has reviewed this note and agrees with this plan of care. This note was dictated using voice recognition software and make contain errors or omissions. [facility] Disclaimer: The information contained in this section may have been updated after the patient was seen, as this information can be updated by other users. Social History Smoking Status: Former smoker alcohol intake: never current occupational status: retired Travel in the last 8 weeks: None household members: spouse housing: apartment current occupational exposures/hazards: No caffeine: No
[2022-04-13 09:55] VITALS: BP 129/93; PULSE 86; RESP 18; O2SAT 94; BMI 30.6
== END | disposition home or self-care (01) ==
PROVIDERS: PCP Family Medicine; Visit Provider Nurse Practitioner Family
DX: M51.16 Intervertebral disc disorders with radiculopathy, lumbar region (principal); Z79.899 Other long term (current) drug therapy
CPT/HCPCS: 99212; G0463

== ENCOUNTER 2022-05-13 10:10 | Outpatient (CLI) | payer MEDICARE, BC, SELFPAY ==
[2022-05-13 14:00] LABS: PHA INR Fingerstick 2.7 (0.9-1.1)
== END 2022-05-13 14:13 ==
LOC: ACC 10:10
PROVIDERS: PCP Family Medicine; Visit Provider Family Medicine
DX: Z51.81 Encounter for therapeutic drug level monitoring (principal); Z79.01 Long term (current) use of anticoagulants; I48.91 Unspecified atrial fibrillation
CPT/HCPCS: 85610; 99211; G0463

== ENCOUNTER → 2022-05-14 10:17 | Outpatient (POV) | payer MEDICARE, BC, SELFPAY ==
[2022-05-14 10:27] VITALS: BP 120/69; PULSE 94; RESP 18; O2SAT 98; BMI 29.9
--- NOTE | 2022-05-14 10:35 | A.OFFVIS_ITS ---
[facility] Pain Management SOAP Note Subjective:: Patient is a pleasant 71-year-old male who presents today for medication refill and follow-up. We are currently treating the patient for degenerative disc disease of lumbar spine with lumbar radiculopathy symptoms, mid back pain. Today the patient rates his pain a 8 out of 10. Patient denies any new trauma or injury. Patient denies any change location or type of pain he experiences. Patient is currently prescribed [place] 7.5 mg 5 times a day and pregabalin 100 mg twice a day. Patient denies any side effects from these medications. He states these medications do provide adequate improvement of his pain symptoms. He is also prescribed compounding cream for additional improvement. His Nicolas is [id number]. Its been reviewed and appropriate. Review of Systems: General: No recent weight changes, no fever, no sleep disturbances Respiratory: No cough, no shortness of air, no recurring pulmonary infections Cardiovascular/peripheral vascular: No chest pain, no palpitations, no edema, no shortness of breath Gastrointestinal: No new onset incontinence, normal bowel movements reported Genitourinary: No new onset incontinence Musculoskeletal: Low back pain Psychiatric: [Normal mood/affect] Neurological: [Denies weakness in extremities], [denies balance issues] Objective:: Physical Exam: General: Alert and oriented x3, no acute distress, pleasant and cooperative Lungs: Respirations even and unlabored, symmetrical chest expansion Eyes: PERRL Musculoskeletal: Flexion and extension of lumbar [spine] somewhat guarded secondary to pain, [antalgic gait noted] Neurological: Speech clear, no gross sensory deficit ORT score updated with minimal to low risk Assessment:: Degenerative disc disease of lumbar spine with lumbar radiculopathy symptoms, mid back pain Plan:: Patient continues to experience significant pain in his mid to low back however he is doing well with his current medication regimen. I will refill the patient's [place] 7.5 mg 5 times a day and pregabalin 100 mg twice a day and provide a 1 month supply of these medications. Patient will return to clinic in 1 month for reevaluation of symptoms medication refill and follow-up. Patient has been advised of risks of oversedation with the prescribed medication. Narcan has been offered to the patient in the event of oversedation. Patient has been advised that a family member should also be educated regarding administration of Narcan. Patient has been instructed to contact the clinic with any concerns before the next appointment. Dr. Martel has reviewed this note and agrees with this plan of care. This note was dictated using voice recognition software and make contain errors or omissions. [facility] Disclaimer: The information contained in this section may have been updated after the patient was seen, as this information can be updated by other users. Social History Smoking Status: Former smoker alcohol intake: never current occupational status: retired Travel in the last 8 weeks: None household members: spouse housing: apartment current occupational exposures/hazards: No caffeine: No
== END | disposition home or self-care (01) ==
PROVIDERS: PCP Family Medicine; Visit Provider Nurse Practitioner Family
DX: M51.16 Intervertebral disc disorders with radiculopathy, lumbar region (principal)
CPT/HCPCS: 99212; G0463

== ENCOUNTER → 2022-05-14 10:45 | Outpatient (CLI) | payer MEDICARE, BC, SELFPAY ==
[2022-05-14 13:33] LABS: Amphetamine/Metha Screen,Urine Negative ng/ml (<1000); Barbiturates Screen,Urine Negative ng/ml (<200)
[2022-05-14 13:35] LABS: Benzodiazepines Screen,Urine Negative ng/ml (<200)
[2022-05-14 13:36] LABS: Cannabinoid Screen,Urine Negative ng/ml (<50)
[2022-05-14 13:37] LABS: Cocaine Screen,Urine Negative ng/ml (<300); Methadone Screen,Urine Negative ng/ml (<300)
[2022-05-14 13:38] LABS: Opiate Screen,Urine Positive ng/ml (<300); Phencyclidine Screen,Urine Negative ng/ml (<25)
[2022-05-18 08:10] LABS: Codeine Negative (Cutoff=100); Hydrocodone Positive (.); Hydromorphone Positive (.); Morphine Negative (Cutoff=100); Opiates Positive (.)
== END ==
PROVIDERS: PCP Family Medicine; Visit Provider Nurse Practitioner Family
DX: Z79.891 Long term (current) use of opiate analgesic (principal)
CPT/HCPCS: 80305; 80361; 80365; 99212; G0463; G0480

== ENCOUNTER → 2022-06-18 09:25 | Outpatient (POV) | payer MEDICARE, BC, SELFPAY ==
--- NOTE | 2022-06-18 09:53 | A.OFFVIS_ITS ---
[facility] Pain Management SOAP Note Subjective:: Patient is a pleasant 71-year-old male who presents today for medication refill and follow-up. We are currently treating the patient for degenerative disc disease of lumbar spine with lumbar radiculopathy symptoms, mid back pain today he rates his pain an 8 out of 10. Patient denies any new trauma or injury. Patient denies any change in location or type of pain he experiences. Patient states his pain is all in his low back and legs. He is currently managed with [place] 7.5 mg 5 times a day and pregabalin 100 mg twice a day. Patient denies any side effects from this medication. He states this medication does help. He is also prescribed compounding cream. His Nicolas is [id number]. Its been reviewed and appropriate. Review of Systems: General: No recent weight changes, no fever, no sleep disturbances Respiratory: No cough, no shortness of air, no recurring pulmonary infections Cardiovascular/peripheral vascular: No chest pain, no palpitations, no edema, no shortness of breath Gastrointestinal: No new onset incontinence, normal bowel movements reported Genitourinary: No new onset incontinence Musculoskeletal: Low back pain Psychiatric: [Normal mood/affect] Neurological: [Denies weakness in extremities], [denies balance issues] Objective:: Physical Exam: General: Alert and oriented x3, no acute distress, pleasant and cooperative Lungs: Respirations even and unlabored, symmetrical chest expansion Eyes: PERRL Musculoskeletal: Flexion and extension of lumbar [spine] somewhat guarded secondary to pain, [antalgic gait noted] Neurological: Speech clear, no gross sensory deficit Assessment:: Degenerative disc disease of lumbar spine with lumbar radiculopathy symptoms, mid back pain Plan:: Patient continues to experience significant pain in his low back however he is doing well with his current medication regimen. I will refill his pregabalin 100 mg twice a day and [place] 7.5 mg 5 times a day and provide a 1 month supply of this medication. Patient will return to clinic in 1 month for reevaluation of symptoms, medication refill and follow-up. Patient has been advised of risks of oversedation with the prescribed medication. Narcan has been offered to the patient in the event of oversedation. Patient has been advised that a family member should also be educated regarding administration of Narcan. Patient has been instructed to contact the clinic with any concerns before the next appointment. Dr. Martel has reviewed this note and agrees with this plan of care. This note was dictated using voice recognition software and make contain errors or omissions. [facility] Disclaimer: The information contained in this section may have been updated after the patient was seen, as this information can be updated by other users. Social History Smoking Status: Former smoker alcohol intake: never current occupational status: retired Travel in the last 8 weeks: None household members: spouse housing: apartment current occupational exposures/hazards: No caffeine: No
[2022-06-18 10:27] VITALS: BP 131/59; PULSE 85; RESP 18; O2SAT 97; BMI 29.9
== END | disposition home or self-care (01) ==
PROVIDERS: PCP Family Medicine; Visit Provider Nurse Practitioner Family
DX: M51.16 Intervertebral disc disorders with radiculopathy, lumbar region (principal); M54.9 Dorsalgia, unspecified
CPT/HCPCS: 99212; G0463

== ENCOUNTER 2022-06-24 09:21 | Outpatient (CLI) | payer MEDICARE, BC, SELFPAY ==
[2022-06-24 10:34] LABS: PHA INR Fingerstick 2.6 (0.9-1.1)
== END 2022-06-24 10:36 ==
LOC: ACC 09:22
PROVIDERS: PCP Family Medicine; Visit Provider Family Medicine
DX: Z51.81 Encounter for therapeutic drug level monitoring (principal); Z79.01 Long term (current) use of anticoagulants; I48.91 Unspecified atrial fibrillation
CPT/HCPCS: 85610; 99211; G0463

== ENCOUNTER → 2022-07-16 09:09 | Outpatient (POV) | payer MEDICARE, BC, SELFPAY ==
--- NOTE | 2022-07-16 09:36 | EXP.PAIN.SOA ---
[facility] Pain Management SOAP Note Subjective:: Patient is a pleasant 71-year-old male who presents today for 1 month follow-up and medication refill. We are currently treating the patient for degenerative disc disease of lumbar spine with lumbar radiculopathy symptoms, mid back pain. Today he rates his pain an 8 out of 10. Patient denies any new trauma or injury. Patient states that he continues to have occasional tailbone pain. He does states this comes and goes depending on his activity. He does state he uses a heating pad to provide additional relief and this does work overall well. Patient is currently prescribed [place] 7.5 mg 5 times a day and pregabalin 100 mg twice a day. Patient denies any side effects from these medications. His Nicolas is [id number]. Its been reviewed and appropriate. Review of Systems: General: No recent weight changes, no fever, no sleep disturbances Respiratory: No cough, no shortness of air, no recurring pulmonary infections Cardiovascular/peripheral vascular: No chest pain, no palpitations, no edema, no shortness of breath Gastrointestinal: No new onset incontinence, normal bowel movements reported Genitourinary: No new onset incontinence Musculoskeletal: Tailbone pain, low back pain Psychiatric: [Normal mood/affect] Neurological: [Denies weakness in extremities], [denies balance issues] Objective:: Physical Exam: General: Alert and oriented x3, no acute distress, pleasant and cooperative Lungs: Respirations even and unlabored, symmetrical chest expansion Eyes: PERRL Musculoskeletal: Flexion and extension of lumbar [spine] somewhat guarded secondary to pain, [antalgic gait noted] Neurological: Speech clear, no gross sensory deficit Assessment:: Degenerative disc disease of lumbar spine with lumbar radiculopathy symptoms, mid back pain, tailbone pain Plan:: Patient is experiencing more pain around his tailbone and did have limited range of motion of his lumbar spine during today's visit. I have discussed with the patient that he may benefit from a caudal epidural in the future. Risk and benefits were discussed with the patient and at this time he would like to wait. I will refill his pregabalin 100 mg twice a day and [place] 7.5 mg 5 times a day and provide a 1 month supply of this medication. Patient will return to clinic in 1 month for reevaluation of symptoms, medication refill and follow-up. Patient has been advised of risks of oversedation with the prescribed medication. Narcan has been offered to the patient in the event of oversedation. Patient has been advised that a family member should also be educated regarding administration of Narcan. Patient has been instructed to contact the clinic with any concerns before the next appointment. Dr. Martel has reviewed this note and agrees with this plan of care. This note was dictated using voice recognition software and make contain errors or omissions. [facility] Disclaimer: The information contained in this section may have been updated after the patient was seen, as this information can be updated by other users. Social History Smoking Status: Former smoker alcohol intake: never current occupational status: retired Travel in the last 8 weeks: None household members: spouse housing: apartment current occupational exposures/hazards: No caffeine: No
[2022-07-16 10:02] VITALS: BP 140/63; PULSE 82; RESP 20; BMI 30.6
== END | disposition home or self-care (01) ==
PROVIDERS: PCP Family Medicine; Visit Provider Nurse Practitioner Family
DX: M51.16 Intervertebral disc disorders with radiculopathy, lumbar region (principal); M53.3 Sacrococcygeal disorders, not elsewhere classified
CPT/HCPCS: 99212; G0463

== ENCOUNTER 2022-08-05 09:30 | Outpatient (CLI) | payer MEDICARE, BC, SELFPAY ==
[2022-08-05 09:47] LABS: PHA INR Fingerstick 2.1 (0.9-1.1)
== END 2022-08-05 09:55 ==
LOC: ACC 09:30
PROVIDERS: PCP Family Medicine; Visit Provider Family Medicine
DX: Z51.81 Encounter for therapeutic drug level monitoring (principal); Z79.01 Long term (current) use of anticoagulants; I48.91 Unspecified atrial fibrillation
CPT/HCPCS: 85610; 99211; G0463

== ENCOUNTER → 2022-08-17 09:34 | Outpatient (POV) | payer MEDICARE, BC, SELFPAY ==
[2022-08-17 09:44] VITALS: BP 132/71; PULSE 80; RESP 18; O2SAT 97; BMI 30.6
--- NOTE | 2022-08-17 09:49 | EXP.PAIN.SOA ---
[facility] Pain Management SOAP Note Subjective:: Patient is a pleasant 71-year-old male who presents today for medication refill and follow-up. We are currently treating the patient for degenerative disc disease of lumbar spine with lumbar radiculopathy symptoms. Patient rates his pain a 8 out of 10. He states he continues to have chronic low back pain and denies any new trauma or injury. Patient is currently managed with [place] 7.5 mg 5 times a day and pregabalin 100 mg twice a day. Patient denies any side effects from this medication. He is requesting refills at today's visit. His Nicolas is [id number]. Its been reviewed and appropriate. Review of Systems: General: No recent weight changes, no fever, no sleep disturbances Respiratory: No cough, no shortness of air, no recurring pulmonary infections Cardiovascular/peripheral vascular: No chest pain, no palpitations, no edema, no shortness of breath Gastrointestinal: No new onset incontinence, normal bowel movements reported Genitourinary: No new onset incontinence Musculoskeletal: Low back pain Psychiatric: [Normal mood/affect] Neurological: [Denies weakness in extremities], [denies balance issues] Objective:: Physical Exam: General: Alert and oriented x3, no acute distress, pleasant and cooperative Lungs: Respirations even and unlabored, symmetrical chest expansion Eyes: PERRL Musculoskeletal: Flexion and extension of lumbar [spine] somewhat guarded secondary to pain, [antalgic gait noted] Neurological: Speech clear, no gross sensory deficit Assessment:: Degenerative disc disease of lumbar spine with lumbar radiculopathy symptoms Plan:: Patient is doing well with his current medication regimen. I will refill his [place] 7.5 mg 5 times a day and pregabalin 100 mg twice a day and provide a 1 month supply of this medication. Patient will return to clinic in 1 month for reevaluation of symptoms, medication refill and follow-up. Patient has been advised of risks of oversedation with the prescribed medication. Narcan has been offered to the patient in the event of oversedation. Patient has been advised that a family member should also be educated regarding administration of Narcan. Patient has been instructed to contact the clinic with any concerns before the next appointment. Dr. Martel has reviewed this note and agrees with this plan of care. This note was dictated using voice recognition software and make contain errors or omissions. [facility] Disclaimer: The information contained in this section may have been updated after the patient was seen, as this information can be updated by other users. Social History Smoking Status: Former smoker alcohol intake: never current occupational status: retired Travel in the last 8 weeks: None household members: spouse housing: apartment current occupational exposures/hazards: No caffeine: No
== END | disposition home or self-care (01) ==
PROVIDERS: Visit Provider Nurse Practitioner Family
DX: M51.16 Intervertebral disc disorders with radiculopathy, lumbar region (principal)
CPT/HCPCS: 99212; G0463

== ENCOUNTER → 2022-09-14 08:24 | Outpatient (POV) | payer MEDICARE, BC, SELFPAY ==
--- NOTE | 2022-09-14 08:37 | EXP.PAIN.SOA ---
[facility] Pain Management SOAP Note Subjective:: Patient is a pleasant 71-year-old male who presents today for medication refill and follow-up. We are currently treating the patient for degenerative disc disease of lumbar spine with lumbar radiculopathy symptoms. Today he rates his pain an 8 out of 10. Patient denies any new trauma or injury. He denies any change to his typical pain symptoms. He is currently managed with [place] 7.5 mg 5 times a day and pregabalin to 100 mg twice a day along with compounding cream. Patient denies any side effects from this medication. He does state that he is out of refills on his compounding cream. His Nicolas is [id number]. Its been reviewed and appropriate. Review of Systems: General: No recent weight changes, no fever, no sleep disturbances Respiratory: No cough, no shortness of air, no recurring pulmonary infections Cardiovascular/peripheral vascular: No chest pain, no palpitations, no edema, no shortness of breath Gastrointestinal: No new onset incontinence, normal bowel movements reported Genitourinary: No new onset incontinence Musculoskeletal: Low back pain Psychiatric: [Normal mood/affect] Neurological: [Denies weakness in extremities], [denies balance issues] Objective:: Physical Exam: General: Alert and oriented x3, no acute distress, pleasant and cooperative Lungs: Respirations even and unlabored, symmetrical chest expansion Eyes: PERRL Musculoskeletal: Flexion and extension of lumbar [spine] somewhat guarded secondary to pain, [antalgic gait noted] Neurological: Speech clear, no gross sensory deficit Assessment:: Degenerative disc disease of lumbar spine with lumbar radiculopathy symptoms Plan:: Patient is doing well with his current medication regimen. I will send in a new order of his compounding cream and refill his pregabalin 100 mg twice a day and [place] 7.5 mg 5 times a day and provide a 1 month supply of these medications. Patient will return to clinic in 1 month for reevaluation of symptoms, medication refill and follow-up. Patient has been advised of risks of oversedation with the prescribed medication. Narcan has been offered to the patient in the event of oversedation. Patient has been advised that a family member should also be educated regarding administration of Narcan. Patient has been instructed to contact the clinic with any concerns before the next appointment. Dr. Martel has reviewed this note and agrees with this plan of care. This note was dictated using voice recognition software and make contain errors or omissions. [facility] Disclaimer: The information contained in this section may have been updated after the patient was seen, as this information can be updated by other users. Social History Smoking Status: Former smoker alcohol intake: never current occupational status: retired Travel in the last 8 weeks: None household members: spouse housing: apartment current occupational exposures/hazards: No caffeine: No
[2022-09-14 08:59] VITALS: BP 151/71; PULSE 95; RESP 18; O2SAT 99; BMI 29.9
== END | disposition home or self-care (01) ==
PROVIDERS: PCP Family Medicine; Visit Provider Nurse Practitioner Family
DX: M51.16 Intervertebral disc disorders with radiculopathy, lumbar region (principal)
CPT/HCPCS: 99212; G0463

== ENCOUNTER → 2022-09-14 08:38 | Outpatient (CLI) | payer MEDICARE, BC, SELFPAY ==
[2022-09-14 10:00] LABS: Barbiturates Screen,Urine Negative ng/ml (<200); Benzodiazepines Screen,Urine Negative ng/ml (<200)
[2022-09-14 10:01] LABS: Amphetamine/Metha Screen,Urine Negative ng/ml (<1000); Cannabinoid Screen,Urine Negative ng/ml (<50)
[2022-09-14 10:02] LABS: Cocaine Screen,Urine Negative ng/ml (<300)
[2022-09-14 10:03] LABS: Methadone Screen,Urine Negative ng/ml (<300); Opiate Screen,Urine Positive ng/ml (<300)
[2022-09-14 10:04] LABS: Phencyclidine Screen,Urine Negative ng/ml (<25)
[2022-09-21 17:47] LABS: Codeine Negative (Cutoff=100); Hydrocodone Positive (.); Hydromorphone Positive (.); Morphine Negative (Cutoff=100); Opiates Positive (.)
== END ==
PROVIDERS: PCP Family Medicine; Visit Provider Nurse Practitioner Family
DX: Z79.891 Long term (current) use of opiate analgesic (principal)
CPT/HCPCS: 80305; 80361; 80365; 99212; G0463; G0480

== ENCOUNTER 2022-09-16 08:49 | Outpatient (CLI) | payer MEDICARE, BC, SELFPAY ==
[2022-09-16 10:37] LABS: PHA INR Fingerstick 1.9 (0.9-1.1)
== END 2022-09-16 10:49 ==
LOC: ACC 08:49
PROVIDERS: PCP Family Medicine; Visit Provider Family Medicine
DX: Z51.81 Encounter for therapeutic drug level monitoring (principal); Z79.01 Long term (current) use of anticoagulants; I48.91 Unspecified atrial fibrillation
CPT/HCPCS: 85610; 99211; G0463

== ENCOUNTER → 2022-10-15 08:18 | Outpatient (POV) | payer MEDICARE, BC, SELFPAY ==
--- NOTE | 2022-10-15 08:35 | A.OFFVIS_ITS ---
[facility] Pain Management SOAP Note Subjective:: Patient is a pleasant 71-year-old male who presents today for medication refill. We are currently treating the patient for degenerative disc disease of lumbar spine with lumbar radiculopathy symptoms. Today he rates his pain an 8 out of 10 and denies any new trauma or injury. He is currently managed with [place] 7.5 mg 5 times a day and pregabalin 100 mg twice a day. Patient denies any side effects from this medication. He is also on compounding cream. His Nicolas is [id number]. Its been reviewed and appropriate. Review of Systems: General: No recent weight changes, no fever, no sleep disturbances Respiratory: No cough, no shortness of air, no recurring pulmonary infections Cardiovascular/peripheral vascular: No chest pain, no palpitations, no edema, no shortness of breath Gastrointestinal: No new onset incontinence, normal bowel movements reported Genitourinary: No new onset incontinence Musculoskeletal: Low back pain Psychiatric: [Normal mood/affect] Neurological: [Denies weakness in extremities], [denies balance issues] Objective:: Physical Exam: General: Alert and oriented x3, no acute distress, pleasant and cooperative Lungs: Respirations even and unlabored, symmetrical chest expansion Eyes: PERRL Musculoskeletal: Flexion and extension of lumbar [spine] somewhat guarded secondary to pain, [antalgic gait noted] Neurological: Speech clear, no gross sensory deficit Assessment:: Degenerative disc disease of lumbar spine with lumbar radiculopathy symptoms Plan:: I will refill the patient's [place] 7.5 mg 5 times a day and pregabalin 100 mg twice a day and provide a 1 month supply of these medications. Patient will return to clinic in 1 month for reevaluation of symptoms and medication refill. Patient has been advised of risks of oversedation with the prescribed medication. Narcan has been offered to the patient in the event of oversedation. Patient has been advised that a family member should also be educated regarding administration of Narcan. Patient has been instructed to contact the clinic with any concerns before the next appointment. Dr. Martel has reviewed this note and agrees with this plan of care. This note was dictated using voice recognition software and make contain errors or omissions. [facility] Disclaimer: The information contained in this section may have been updated after the patient was seen, as this information can be updated by other users. Social History Smoking Status: Former smoker alcohol intake: never current occupational status: retired Travel in the last 8 weeks: None household members: spouse housing: apartment current occupational exposures/hazards: No caffeine: No
[2022-10-15 08:48] VITALS: BP 146/67; PULSE 89; RESP 18; O2SAT 97; BMI 29.9
== END | disposition home or self-care (01) ==
PROVIDERS: PCP Family Medicine; Visit Provider Nurse Practitioner Family
DX: M51.16 Intervertebral disc disorders with radiculopathy, lumbar region (principal)
CPT/HCPCS: 99212; G0463

== ENCOUNTER 2022-10-28 08:47 | Outpatient (CLI) | payer MEDICARE, BC, SELFPAY ==
[2022-10-28 09:43] LABS: PHA INR Fingerstick 2.1 (0.9-1.1)
== END 2022-10-28 09:45 ==
LOC: ACC 08:47
PROVIDERS: PCP Family Medicine; Visit Provider Family Medicine
DX: Z51.81 Encounter for therapeutic drug level monitoring (principal); Z79.01 Long term (current) use of anticoagulants; I48.91 Unspecified atrial fibrillation
CPT/HCPCS: 85610; 99211; G0463

== ENCOUNTER → 2022-11-12 08:21 | Outpatient (POV) | payer MEDICARE, BC, SELFPAY ==
[2022-11-12 08:32] VITALS: BP 140/69; PULSE 91; RESP 18; O2SAT 97; BMI 29.6
--- NOTE | 2022-11-12 08:37 | A.OFFVIS_ITS ---
[facility] Pain Management SOAP Note Subjective:: Patient is a pleasant 72-year-old male who presents today for medication refill and follow-up. We are currently treating the patient for degenerative disc disease of lumbar spine with lumbar radiculopathy symptoms. Today he rates his pain an 8 out of 10. Patient denies any new trauma or injury. He states over the last 2 weeks he has been experiencing worse mid back pain. He does describe this as an achy sensation that seems to be unrelated to specific positioning. He states that the day it did start that he had woken up with the pain. Patient is currently managed with [place] 7.5 mg 5 times a day and pregabalin 100 mg twice a day. Patient denies any side effects from this medication. His Nicolas is [id number]. Its been reviewed and appropriate. Review of Systems: General: No recent weight changes, no fever, no sleep disturbances Respiratory: No cough, no shortness of air, no recurring pulmonary infections Cardiovascular/peripheral vascular: No chest pain, no palpitations, no edema, no shortness of breath Gastrointestinal: No new onset incontinence, normal bowel movements reported Genitourinary: No new onset incontinence Musculoskeletal: Mid back pain Psychiatric: [Normal mood/affect] Neurological: [Denies weakness in extremities], [denies balance issues] Objective:: Physical Exam: General: Alert and oriented x3, no acute distress, pleasant and cooperative Lungs: Respirations even and unlabored, symmetrical chest expansion Eyes: PERRL Musculoskeletal: Flexion and extension of thoracic [spine] somewhat guarded secondary to pain, [antalgic gait noted] Neurological: Speech clear, no gross sensory deficit Assessment:: Degenerative disc disease of lumbar spine with lumbar radiculopathy symptoms, mid back pain Plan:: Patient is experiencing more mid back pain with radiating symptoms and limited range of motion. I have discussed with the patient that in the future he may benefit from a thoracic epidural. We will discuss this at future visits. I will send in a new prescription for methocarbamol 500 mg at bedtime and provide a 14-day supply of this medication. We will also refill his pregabalin 100 mg twice a day and [place] 7.5 mg 5 times a day and provide a 1 month supply of this medication. Patient will return to clinic in 1 month for reevaluation of symptoms and medication refill. Patient has been advised of risks of oversedation with the prescribed medication. Narcan has been offered to the patient in the event of oversedation. Patient has been advised that a family member should also be educ ated regarding administration of Narcan. Patient has been instructed to contact the clinic with any concerns before the next appointment. Dr. Martel has reviewed this note and agrees with this plan of care. This note was dictated using voice recognition software and make contain errors or omissions. [facility] Disclaimer: The information contained in this section may have been updated after the patient was seen, as this information can be updated by other users. Social History Smoking Status: Former smoker alcohol intake: never current occupational status: retired Travel in the last 8 weeks: None household members: spouse housing: apartment current occupational exposures/hazards: No caffeine: No
== END | disposition home or self-care (01) ==
PROVIDERS: PCP Family Medicine; Visit Provider Nurse Practitioner Family
DX: M51.16 Intervertebral disc disorders with radiculopathy, lumbar region (principal); M54.6 Pain in thoracic spine
CPT/HCPCS: 99212; G0463

== ENCOUNTER 2022-12-09 08:48 | Outpatient (CLI) | payer MEDICARE, BC, SELFPAY ==
[2022-12-09 09:43] LABS: PHA INR Fingerstick 2.1 (0.9-1.1)
== END 2022-12-09 09:44 ==
LOC: ACC 08:49
PROVIDERS: PCP Family Medicine; Visit Provider Family Medicine
DX: Z79.01 Long term (current) use of anticoagulants (principal); Z51.81 Encounter for therapeutic drug level monitoring; I48.91 Unspecified atrial fibrillation
CPT/HCPCS: 85610; 99211; G0463

== ENCOUNTER → 2022-12-10 08:20 | Outpatient (POV) | payer MEDICARE, BC, SELFPAY ==
[2022-12-10 08:33] VITALS: BP 141/69; PULSE 81; RESP 18; O2SAT 96; BMI 29.6
--- NOTE | 2022-12-10 08:34 | EXP.PAIN.SOA ---
[facility] Pain Management SOAP Note Subjective:: Patient is a pleasant 72-year-old male who presents today for 1 month follow-up and medication refill. We are currently treating the patient for degenerative disc disease of lumbar spine with lumbar radiculopathy symptoms. Today he rates his pain an 8 out of 10. Patient continues to deny any new trauma or injury or any change to location or type of pain he experiences. He does state that he continues to have low to mid back pain that is worse with increased activity. At our last visit we did try him on methocarbamol 500 mg at bedtime he states that he has used a few of these tablets and they did provide additional relief. He states he still has a handful and does not need a refill at this time. Patient is also managed with [place] 7.5 mg 5 times a day and pregabalin 100 mg twice a day. He denies any side effects from these medications. His Nicolas is [id number]. Its been reviewed and appropriate. Review of Systems: General: No recent weight changes, no fever, no sleep disturbances Respiratory: No cough, no shortness of air, no recurring pulmonary infections Cardiovascular/peripheral vascular: No chest pain, no palpitations, no edema, no shortness of breath Gastrointestinal: No new onset incontinence, normal bowel movements reported Genitourinary: No new onset incontinence Musculoskeletal: Low back pain Psychiatric: [Normal mood/affect] Neurological: [Denies weakness in extremities], [denies balance issues] Objective:: Physical Exam: General: Alert and oriented x3, no acute distress, pleasant and cooperative Lungs: Respirations even and unlabored, symmetrical chest expansion Eyes: PERRL Musculoskeletal: Flexion and extension of lumbar [spine] somewhat guarded secondary to pain, [antalgic gait noted] Neurological: Speech clear, no gross sensory deficit Assessment:: Degenerative disc disease of lumbar spine with lumbar radiculopathy symptoms Plan:: I will send in refills for his [place] 7.5 mg 5 times a day and pregabalin 100 mg twice a day and provide a 1 month supply of this medication. Patient will return to clinic in 1 month for reevaluation of symptoms and plan of care. Patient has been advised of risks of oversedation with the prescribed medication. Narcan has been offered to the patient in the event of oversedation. Patient has been advised that a family member should also be educated regarding administration of Narcan. Patient has been instructed to contact the clinic with any concerns before the next appointment. Dr. Martel has reviewed this note and agrees with this plan of care. This note was dictated using voice recognition software and make contain errors or omissions. [facility] Disclaimer: The information contained in this section may have been updated after the patient was seen, as this information can be updated by other users. Social History Smoking Status: Former smoker alcohol intake: never current occupational status: retired Travel in the last 8 weeks: None household members: spouse housing: apartment current occupational exposures/hazards: No caffeine: No
== END | disposition home or self-care (01) ==
PROVIDERS: Visit Provider Nurse Practitioner Family
DX: M51.16 Intervertebral disc disorders with radiculopathy, lumbar region (principal)
CPT/HCPCS: 99212; G0463

== ENCOUNTER → 2023-01-18 08:20 | Outpatient (POV) | payer MEDICARE, BC, SELFPAY ==
[2023-01-18 08:58] VITALS: BP 166/70; PULSE 82; RESP 18; O2SAT 97; BMI 29.9
--- NOTE | 2023-01-18 09:04 | A.OFFVIS_ITS ---
[facility] Pain Management SOAP Note Subjective:: Patient is a pleasant 72-year-old male who presents today for medication follow- up. We are currently treating the patient for degenerative disc disease of lumbar spine with lumbar radiculopathy symptoms. Today he rates his pain an 8 out of 10. Patient denies any new trauma or injury. Patient states that he continues to have low back and leg pain. He is currently managed with [place] 7.5 mg 5 times a day and pregabalin 100 mg twice a day. Patient denies any side effects from these medications. He does state that these medications were called them last week and he does not need an additional prescription. His Nicolas is [id number]. Its been reviewed and appropriate. Review of Systems: General: No recent weight changes, no fever, no sleep disturbances Respiratory: No cough, no shortness of air, no recurring pulmonary infections Cardiovascular/peripheral vascular: No chest pain, no palpitations, no edema, no shortness of breath Gastrointestinal: No new onset incontinence, normal bowel movements reported Genitourinary: No new onset incontinence Musculoskeletal: Low back pain Psychiatric: [Normal mood/affect] Neurological: [Denies weakness in extremities], [denies balance issues] Objective:: Physical Exam: General: Alert and oriented x3, no acute distress, pleasant and cooperative Lungs: Respirations even and unlabored, symmetrical chest expansion Eyes: PERRL Musculoskeletal: Flexion and extension of lumbar [spine] somewhat guarded secondary to pain, [antalgic gait noted] Neurological: Speech clear, no gross sensory deficit Assessment:: Degenerative disc disease of lumbar spine with lumbar radiculopathy symptoms Plan:: Patient continues to do well on his current medication regimen. Patient will return to clinic in 1 month for reevaluation of symptoms, medication refill and follow-up. Patient has been advised of risks of oversedation with the prescribed medication. Narcan has been offered to the patient in the event of oversedation. Patient has been advised that a family member should also be educated regarding administration of Narcan. Patient has been instructed to contact the clinic with any concerns before the next appointment. Dr. Martel has reviewed this note and agrees with this plan of care. This note was dictated using voice recognition software and make contain errors or omissions. [facility] Disclaimer: The information contained in this section may have been updated after the patient was seen, as this information can be updated by other users. Medical History (Updated 12/11/22 @ 12:44 by Lian Martinez MD) Allergic rhinitis, unspecified Asthma COPD (chronic obstructive pulmonary disease) Dyspnea on exertion History of COPD History of pacemaker Obstructive sleep apnea syndrome Pulmonary emphysema Surgical History (Updated 12/11/22 @ 10:15 by Ashley Najera) History of breast lump removal History of cholecystectomy History of hernia surgery Family History Other Asthma Diabetes Family history of pacemaker Heart attack Hypertension Lung cancer Social History Smoking Status: Former smoker alcohol intake: never current occupational status: retired Travel in the last 8 weeks: None household members: spouse housing: apartment current occupational exposures/hazards: No caffeine: No
== END ==
PROVIDERS: PCP Family Medicine; Visit Provider Nurse Practitioner Family
DX: M51.16 Intervertebral disc disorders with radiculopathy, lumbar region (principal)
CPT/HCPCS: 99212; G0463

== ENCOUNTER 2023-01-20 08:55 | Outpatient (CLI) | payer MEDICARE, BC, SELFPAY ==
[2023-01-20 13:27] LABS: PHA INR Fingerstick 1.7 (0.9-1.1)
== END 2023-01-20 14:43 ==
LOC: ACC 08:57
PROVIDERS: PCP Family Medicine; Visit Provider Family Medicine
DX: Z79.01 Long term (current) use of anticoagulants (principal); Z51.81 Encounter for therapeutic drug level monitoring; I48.91 Unspecified atrial fibrillation
CPT/HCPCS: 85610; 99211; G0463

== ENCOUNTER → 2023-02-11 08:33 | Outpatient (POV) | payer MEDICARE, BC, SELFPAY ==
--- NOTE | 2023-02-11 08:48 | A.OFFVIS_ITS ---
[facility] Pain Management SOAP Note Subjective:: Patient is a pleasant 72-year-old male who presents today for 1 month follow-up and medication refill. We are currently treating the patient for degenerative disc disease of lumbar spine with lumbar radiculopathy symptoms. Today he rates his pain an 8 out of 10. Patient denies any new trauma or injury. He states he still continues to have daily aches and pains in his low back and legs. He is currently prescribed [place] 7.5 mg 5 times a day and pregabalin 100 mg twice a day. Patient denies any side effects from these medications. His Nicolas is [id number]. Its been reviewed and appropriate. Review of Systems: General: No recent weight changes, no fever, no sleep disturbances Respiratory: No cough, no shortness of air, no recurring pulmonary infections Cardiovascular/peripheral vascular: No chest pain, no palpitations, no edema, no shortness of breath Gastrointestinal: No new onset incontinence, normal bowel movements reported Genitourinary: No new onset incontinence Musculoskeletal: Low back pain Psychiatric: [Normal mood/affect] Neurological: [Denies weakness in extremities], [denies balance issues] Objective:: Physical Exam: General: Alert and oriented x3, no acute distress, pleasant and cooperative Lungs: Respirations even and unlabored, symmetrical chest expansion Eyes: PERRL Musculoskeletal: Flexion and extension of lumbar [spine] somewhat guarded secondary to pain, [antalgic gait noted] Neurological: Speech clear, no gross sensory deficit Assessment:: Degenerative disc disease of lumbar spine with lumbar radiculopathy symptoms Plan:: I will refill the patient's [place] 7.5 mg 5 times a day and pregabalin 100 mg twice a day and provide a 1 month supply of this medication. Patient will return to clinic in 1 month for reevaluation of symptoms and plan of care. Patient has been advised of risks of oversedation with the prescribed medication. Narcan has been offered to the patient in the event of overseda tion. Patient has been advised that a family member should also be educated regarding administration of Narcan. Patient has been instructed to contact the clinic with any concerns before the next appointment. Dr. Martel has reviewed this note and agrees with this plan of care. This note was dictated using voice recognition software and make contain errors or omissions. [facility] Disclaimer: The information contained in this section may have been updated after the patient was seen, as this information can be updated by other users. Medical History (Updated 12/11/22 @ 12:44 by Lian Martinez MD) Allergic rhinitis, unspecified Asthma COPD (chronic obstructive pulmonary disease) Dyspnea on exertion History of COPD History of pacemaker Obstructive sleep apnea syndrome Pulmonary emphysema Surgical History (Updated 12/11/22 @ 10:15 by Ashley Najera) History of breast lump removal History of cholecystectomy History of hernia surgery Family History Other Asthma Diabetes Family history of pacemaker Heart attack Hypertension Lung cancer Social History Smoking Status: Former smoker alcohol intake: never current occupational status: retired Travel in the last 8 weeks: None household members: spouse housing: apartment current occupational exposures/hazards: No caffeine: No
[2023-02-11 09:01] VITALS: BP 130/67; PULSE 86; RESP 18; O2SAT 96; BMI 29.9
== END | disposition home or self-care (01) ==
PROVIDERS: Visit Provider Nurse Practitioner Family
DX: M51.16 Intervertebral disc disorders with radiculopathy, lumbar region (principal)
CPT/HCPCS: 99212; G0463

== ENCOUNTER → 2023-02-11 08:55 | Outpatient (CLI) | payer MEDICARE, BC, SELFPAY ==
[2023-02-11 10:24] LABS: Barbiturates Screen,Urine Negative ng/ml (<200)
[2023-02-11 10:25] LABS: Benzodiazepines Screen,Urine Negative ng/ml (<200)
[2023-02-11 10:26] LABS: Amphetamine/Metha Screen,Urine Negative ng/ml (<1000); Methadone Screen,Urine Negative ng/ml (<300)
[2023-02-11 10:27] LABS: Cannabinoid Screen,Urine Negative ng/ml (<50); Cocaine Screen,Urine Negative ng/ml (<300)
[2023-02-11 10:28] LABS: Opiate Screen,Urine Positive ng/ml (<300)
[2023-02-11 10:29] LABS: Phencyclidine Screen,Urine Negative ng/ml (<25)
[2023-02-16 14:11] LABS: Codeine Negative (Cutoff=100); Hydrocodone Positive (.); Hydromorphone Positive (.); Morphine Negative (Cutoff=100); Opiates Positive (.)
== END ==
LOC: LAB 08:56
PROVIDERS: PCP Family Medicine; Visit Provider Nurse Practitioner Family
DX: Z79.891 Long term (current) use of opiate analgesic (principal)
CPT/HCPCS: 80183; 80305; 80307; 80361; 80365; 99212; G0463; G0480

== ENCOUNTER 2023-03-03 09:02 | Outpatient (CLI) | payer MEDICARE, BC, SELFPAY ==
[2023-03-03 13:51] LABS: PHA INR Fingerstick 2.1 (0.9-1.1)
== END 2023-03-03 14:05 ==
LOC: ACC 09:03
PROVIDERS: PCP Family Medicine; Visit Provider Family Medicine
DX: Z79.01 Long term (current) use of anticoagulants (principal); Z51.81 Encounter for therapeutic drug level monitoring
CPT/HCPCS: 85610; 99211; G0463

== ENCOUNTER → 2023-03-15 08:18 | Outpatient (POV) | payer MEDICARE, BC, SELFPAY ==
[2023-03-15 08:28] VITALS: BP 120/63; PULSE 87; RESP 18; O2SAT 98; BMI 29.9
--- NOTE | 2023-03-15 08:36 | EXP.PAIN.SOA ---
[facility] Pain Management SOAP Note Subjective:: Patient is a pleasant 72-year-old male who presents today for medication refill and follow-up. We are currently treating the patient for degenerative disc disease of lumbar spine with lumbar radiculopathy symptoms. Today he rates his pain an 8 out of 10. Patient denies any new trauma or injury from our last visit. He does state that his neuropathy symptoms have seemed to worsen over time. He is currently managed with [place] 7.5 mg 5 times a day and pregabalin 100 mg twice a day. He denies any side effects from this medication. His Nicolas has been reviewed and is appropriate. Review of Systems: General: No recent weight changes, no fever, no sleep disturbances Respiratory: No cough, no shortness of air, no recurring pulmonary infections Cardiovascular/peripheral vascular: No chest pain, no palpitations, no edema, no shortness of breath Gastrointestinal: No new onset incontinence, normal bowel movements reported Genitourinary: No new onset incontinence Musculoskeletal: Low back pain, leg pain Psychiatric: [Normal mood/affect] Neurological: [Denies weakness in extremities], [denies balance issues] Objective:: Physical Exam: General: Alert and oriented x3, no acute distress, pleasant and cooperative Lungs: Respirations even and unlabored, symmetrical chest expansion Eyes: PERRL Musculoskeletal: Flexion and extension of lumbar [spine] somewhat guarded secondary to pain, [antalgic gait noted] Neurological: Speech clear, no gross sensory deficit Assessment:: Degenerative disc disease of lumbar spine with lumbar radiculopathy symptoms Plan:: I will refill the patient's [place] 7.5 mg 5 times a day and pregabalin 100 mg but change it to 3 times a day and provide a 1 month supply of these medications. Patient will return to clinic in 1 month valuation of symptoms and medication refill. Patient has been advised of risks of oversedation with the prescribed medication. Narcan has been offered to the patient in the event of oversedation. Patient has been advised that a family member should also be educated regarding administration of Narcan. Patient has been instructed to contact the clinic with any concerns before the next appointment. Dr. Martel has reviewed this note and agrees with this plan of care. This note was dictated using voice recognition software and make contain errors or omissions. [facility] Disclaimer: The information contained in this section may have been updated after the patient was seen, as this information can be updated by other users. Medical History (Updated 12/11/22 @ 12:44 by Lian Martinez MD) Allergic rhinitis, unspecified Asthma COPD (chronic obstructive pulmonary disease) Dyspnea on exertion History of COPD History of pacemaker Obstructive sleep apnea syndrome Pulmonary emphysema Surgical History (Updated 12/11/22 @ 10:15 by Ashley Najera) History of breast lump removal History of cholecystectomy History of hernia surgery Family History Other Asthma Diabetes Family history of pacemaker Heart attack Hypertension Lung cancer Social History Smoking Status: Former smoker alcohol intake: never current occupational status: retired Travel in the last 8 weeks: None household members: spouse housing: apartment current occupational exposures/hazards: No caffeine: No
== END | disposition home or self-care (01) ==
PROVIDERS: PCP Family Medicine; Visit Provider Nurse Practitioner Family
DX: M51.16 Intervertebral disc disorders with radiculopathy, lumbar region (principal)
CPT/HCPCS: 99212; G0463

== ENCOUNTER → 2023-04-12 08:23 | Outpatient (POV) | payer MEDICARE, BC, SELFPAY ==
--- NOTE | 2023-04-12 08:36 | A.OFFVIS_ITS ---
[facility] Pain Management SOAP Note Subjective:: Patient is a pleasant 72-year-old male who presents today for medication refill. We are currently treating the patient for degenerative disc disease of lumbar spine with lumbar radiculopathy symptoms. Today he rates his pain a 9 out of 10. Patient denies any new injury or trauma from our last office visit. Patient states he continues to do okay on his current medications. Patient denies any side effects. Patient is currently prescribed [place] 7.5 mg 5 times a day and pregabalin 100 mg 3 times a day. His Nicolas has been reviewed. Review of Systems: General: No recent weight changes, no fever, no sleep disturbances Respiratory: No cough, no shortness of air, no recurring pulmonary infections Cardiovascular/peripheral vascular: No chest pain, no palpitations, no edema, no shortness of breath Gastrointestinal: No new onset incontinence, normal bowel movements reported Genitourinary: No new onset incontinence Musculoskeletal: Low back pain Psychiatric: [Normal mood/affect] Neurological: [Denies weakness in extremities], [denies balance issues] Objective:: Physical Exam: General: Alert and oriented x3, no acute distress, pleasant and cooperative Lungs: Respirations even and unlabored, symmetrical chest expansion Eyes: PERRL Musculoskeletal: Flexion and extension of lumbar [spine] somewhat guarded secondary to pain, [antalgic gait noted] Neurological: Speech clear, no gross sensory deficit Assessment:: Degenerative disc disease of lumbar spine with lumbar radiculopathy symptoms. Plan:: Patient continues to do well with his current medication regimen. I will refill his [place] 7.5 mg 5 times a day and pregabalin 100 mg 3 times a day and provide a 1 month supply of these medications. Patient will return to clinic in 1 month for reevaluation of symptoms, medication refill and follow-up. Patient has been advised of risks of oversedation with the prescribed medication. Narcan has been offered to the patient in the event of oversedation. Patient has been advised that a family member should also be educated regarding administration of Narcan. Patient has been instructed to contact the clinic with any concerns before the next appointment. Dr. Martel has reviewed this note and agrees with this plan of care. This note was dictated using voice recognition software and make contain errors or omissions. [facility] Disclaimer: The information contained in this section may have been updated after the patient was seen, as this information can be updated by other users. Medical History (Updated 12/11/22 @ 12:44 by Lian Martinez MD) Allergic rhinitis, unspecified Asthma COPD (chronic obstructive pulmonary disease) Dyspnea on exertion History of COPD History of pacemaker Obstructive sleep apnea syndrome Pulmonary emphysema Surgical History (Updated 12/11/22 @ 10:15 by Ashley Najera) History of breast lump removal History of cholecystectomy History of hernia surgery Family History Other Asthma Diabetes Family history of pacemaker Heart attack Hypertension Lung cancer Social History Smoking Status: Former smoker alcohol intake: never current occupational status: retired Travel in the last 8 weeks: None household members: spouse housing: apartment current occupational exposures/hazards: No caffeine: No
[2023-04-12 09:45] VITALS: BP 114/46; PULSE 84; RESP 18; O2SAT 95; BMI 29.9
== END | disposition home or self-care (01) ==
PROVIDERS: PCP Family Medicine; Visit Provider Nurse Practitioner Family
DX: M51.16 Intervertebral disc disorders with radiculopathy, lumbar region (principal)
CPT/HCPCS: 99212; G0463

== ENCOUNTER 2023-04-14 08:52 | Outpatient (CLI) | payer MEDICARE, BC, SELFPAY ==
[2023-04-14 14:14] LABS: PHA INR Fingerstick 2.1 (0.9-1.1)
== END 2023-04-14 15:52 ==
LOC: ACC 08:53
PROVIDERS: PCP Family Medicine; Visit Provider Family Medicine
DX: Z79.01 Long term (current) use of anticoagulants (principal); Z51.81 Encounter for therapeutic drug level monitoring; I48.91 Unspecified atrial fibrillation
CPT/HCPCS: 85610; 99211; G0463

== ENCOUNTER → 2023-05-13 08:22 | Outpatient (POV) | payer MEDICARE, BC, SELFPAY ==
[2023-05-13 08:39] VITALS: BP 119/74; PULSE 89; RESP 18; O2SAT 97; BMI 29.9
--- NOTE | 2023-05-13 08:39 | A.OFFVIS_ITS ---
[facility] Pain Management SOAP Note Subjective:: Patient is a pleasant 72-year-old male who presents today for 1 month follow-up and medication refill. We are currently treating the patient for degenerative disc disease of lumbar spine with lumbar radiculopathy symptoms. Today he rates his pain a 8 out of 10. Patient denies any new trauma or injury. He is currently managed with [place] 7.5 mg 5 times a day and pregabalin 100 mg 3 times a day. Patient denies any side effects from these medications. His Nicolas has been reviewed and is appropriate. Review of Systems: General: No recent weight changes, no fever, no sleep disturbances Respiratory: No cough, no shortness of air, no recurring pulmonary infections Cardiovascular/peripheral vascular: No chest pain, no palpitations, no edema, no shortness of breath Gastrointestinal: No new onset incontinence, normal bowel movements reported Genitourinary: No new onset incontinence Musculoskeletal: Low back pain Psychiatric: [Normal mood/affect] Neurological: [Denies weakness in extremities], [denies balance issues] Objective:: Physical Exam: General: Alert and oriented x3, no acute distress, pleasant and cooperative Lungs: Respirations even and unlabored, symmetrical chest expansion Eyes: PERRL Musculoskeletal: Flexion and extension of lumbar [spine] somewhat guarded secondary to pain, [antalgic gait noted] Neurological: Speech clear, no gross sensory deficit Assessment:: Degenerative disc disease of lumbar spine with lumbar radiculopathy symptoms Plan:: I will refill the patient's [place] 7.5 mg 5 times a day and pregabalin 100 mg 3 times a day and provide a 1 month supply of these medications. Patient will return to clinic in 1 month for reevaluation of symptoms and plan of care. Patient has been advised of risks of oversedation with the prescribed medication. Narcan has been offered to the patient in the event of oversedation. Patient has been advised that a family member should also be educated regarding administration of Narcan. Patient has been instructed to contact the clinic with any concerns before the next appointment. Dr. Martel has reviewed this note and agrees with this plan of care. This note was dictated using voice recognition software and make contain errors or omissions. [facility] Disclaimer: The information contained in this section may have been updated after the patient was seen, as this information can be updated by other users. Medical History (Updated 12/11/22 @ 12:44 by Lian Martinez MD) Allergic rhinitis, unspecified Asthma COPD (chronic obstructive pulmonary disease) Dyspnea on exertion History of COPD History of pacemaker Obstructive sleep apnea syndrome Pulmonary emphysema Surgical History (Updated 12/11/22 @ 10:15 by Ashley Najera) History of breast lump removal History of cholecystectomy History of hernia surgery Family History Other Asthma Diabetes Family history of pacemaker Heart attack Hypertension Lung cancer Social History Smoking Status: Former smoker alcohol intake: never current occupational status: retired Travel in the last 8 weeks: None household members: spouse housing: apartment current occupational exposures/hazards: No caffeine: No
== END | disposition home or self-care (01) ==
PROVIDERS: PCP Family Medicine; Visit Provider Nurse Practitioner Family
DX: M51.16 Intervertebral disc disorders with radiculopathy, lumbar region (principal)
CPT/HCPCS: 99212; G0463

== ENCOUNTER 2023-05-13 08:45 | Outpatient (CLI) | payer MEDICARE, BC, SELFPAY ==
[2023-05-13 09:37] LABS: Amphetamine/Metha Screen,Urine Negative ng/ml (<1000); Barbiturates Screen,Urine Negative ng/ml (<200); Benzodiazepines Screen,Urine Negative ng/ml (<200); Cannabinoid Screen,Urine Negative ng/ml (<50); Cocaine Screen,Urine Negative ng/ml (<300); Methadone Screen,Urine Negative ng/ml (<300); Opiate Screen,Urine Positive ng/ml (<300); Phencyclidine Screen,Urine Negative ng/ml (<25)
[2023-05-18 11:17] LABS: Codeine Negative (Cutoff=100); Hydrocodone Positive (.); Hydromorphone Positive (.); Morphine Negative (Cutoff=100); Opiates Positive (.)
== END 2023-05-13 23:59 ==
LOC: LAB 08:46
PROVIDERS: PCP Family Medicine; Visit Provider Nurse Practitioner Family
DX: Z79.891 Long term (current) use of opiate analgesic (principal)
CPT/HCPCS: 80307; 80361; 80365; 99212; G0463; G0480

== ENCOUNTER 2023-05-24 08:44 | Outpatient (CLI) | payer MEDICARE, BC, SELFPAY ==
[2023-05-24 09:01] LABS: PHA INR Fingerstick 2.4 (0.9-1.1)
== END 2023-05-24 09:03 ==
LOC: ACC 08:45
PROVIDERS: PCP Family Medicine; Visit Provider Family Medicine
DX: Z79.01 Long term (current) use of anticoagulants (principal); Z51.81 Encounter for therapeutic drug level monitoring; I48.91 Unspecified atrial fibrillation
CPT/HCPCS: 85610; 99211; G0463

== ENCOUNTER → 2023-06-11 09:15 | Outpatient (POV) | payer MEDICARE, BC, SELFPAY ==
[2023-06-11 09:34] VITALS: BP 144/71; PULSE 88; RESP 18; O2SAT 96; BMI 29.9
--- NOTE | 2023-06-11 10:04 | EXP.PAIN.SOA ---
[facility] Pain Management SOAP Note Subjective:: This patient is a very pleasant 72-year-old male that comes to clinic today for a 1 month follow-up regarding medication refills. We currently treat the patient for degenerative disc lumbar spine multilevels. Lumbar radiculopathy. Patient rates his pain today 6/10. Patient states medication does help with his overall pain. He does not report any side effects or complications with his current medications. We currently managing with [place] 7.5 mg 1 p.o. 5 times daily and Lyrica 100 mg 1 p.o. 3 times daily. Patient's Nicolas has been reviewed and appropriate. Objective:: Patient is awake alert [place] x 3. No acute distress. Flexion-extension lumbar spine somewhat guarded secondary to pain. Deep tendon reflexes upper lower extremities normal. Motor strength upper and lower extremities normal. There is no gross sensory deficit. Gait is normal. Assessment:: Degenerative disc lumbar spine multilevels. Lumbar radiculopathy. Plan:: Patient states he is continue to stay active although retired. I encouraged him to continue with home exercise program. Walking outside daily. He will return to see us in 1 month. [facility] Disclaimer: The information contained in this section may have been updated after the patient was seen, as this information can be updated by other users. Medical History (Updated 12/11/22 @ 12:44 by Lian Martinez MD) Allergic rhinitis, unspecified Asthma COPD (chronic obstructive pulmonary disease) Dyspnea on exertion History of COPD History of pacemaker Obstructive sleep apnea syndrome Pulmonary emphysema Surgical History (Updated 12/11/22 @ 10:15 by Ashley Najera) History of breast lump removal History of cholecystectomy History of hernia surgery Family History Other Asthma Diabetes Family history of pacemaker Heart attack Hypertension Lung cancer Social History Smoking Status: Former smoker alcohol intake: never substance use type: denies use current occupational status: retired Travel in the last 8 weeks: None household members: spouse housing: apartment current occupational exposures/hazards: No caffeine: No
== END | disposition home or self-care (01) ==
PROVIDERS: PCP Family Medicine; Visit Provider Nurse Anesthetist, Certified Registered
DX: M51.16 Intervertebral disc disorders with radiculopathy, lumbar region (principal)
CPT/HCPCS: 99212; G0463

== ENCOUNTER 2023-06-18 06:32 | Day surgery (SDC) | payer MEDICARE, BC, SELFPAY ==
[2023-06-17 08:38] VITALS: BMI 29.9
[2023-06-18] MEDS: LACTATED RINGERS 1000ML 1,000 ML 25 ML IV (06:46)
[2023-06-18 06:51] VITALS: BP 147/72; PULSE 103; RESP 18; TEMP 36.3; O2SAT 97
[2023-06-18 06:58] LABS: POC Glucose,Bedside 180 (70-110)
[2023-06-18 07:06] LABS: INR 1.41 (0.9-1.1); Prothrombin Time 14.9 seconds (10.1-12.5)
--- NOTE | 2023-06-18 07:06 | P.PCN_ITS ---
Procedure: Date: 06/18/23 Patient Date of :: 1950 Procedure Performed:: Colonoscopy to ileocecal valve with multiple polypectomy Indications:: Patient is a 72-year-old male who presents for colonoscopy after referral by Dr. Sp Kuhn. He is on chronic warfarin anticoagulation therapy for atrial fibrillation. I had previously seen him for colonoscopy and performed colonoscopy on 01/26/2012. He had a sessile serrated adenoma in the cecum, a couple of tubular adenomas at the hepatic flexure, sessile serrated adenoma in the transverse colon, 1.2 cm tubulovillous adenoma in the distal transverse colon. He had undergone follow-up colonoscopy with Dr. Velasquez on 06/01/2016. He had 6 polyps removed at that time ranging in size between 4 to 6 mm. It appears as though these were tubular adenomas. Repeat colonoscopy was recommended in 3 years. Patient describes stomach problems . He has bowel frequency. This has been ongoing for about a year. He states that he occasionally has to take Pepto-Bismol and antidiarrheal. Performing Provider:: Rene Nash MD Referring Provider:: Sp Kuhn MD Sedation:: MAC sedation Procedure:: Patient history was obtained and appropriate physical examination was performed. Patient's medications and allergies were reviewed. Informed consent was obtained after explaining the benefits, alternatives, and risks of the procedure including, but not limited to, bleeding, perforation, missed lesions, and adverse reaction to anesthesia medications. Patient was transported to endoscopy procedure room. Patient was connected to monitoring devices. Throughout the procedure the patient's blood pressure, pulse, and oxygen saturations were monitored continuously. Patient identification and planned procedure were verified by the staff. Patient was positioned in lateral decubitus position. Digital anorectal exam was performed. Variable stiffness Olympus colonoscope was inserted and advanced under direct visualization to the cecum. Adequacy of the colonic preparation was noted. The colonoscope was advanced to the ileocecal valve. The colonoscope was then slowly withdrawn while carefully examining the color, texture, anatomy, and integrity of the mucosoa circumferentially. Within the rectum retroflexion was performed. Colonoscope was then withdrawn. . Given the patient's symptoms multiple attempts were made to cannulate the term inal ileum without success. There was possibly fibrosis. In the ascending colon there was a somewhat hemorrhagic appearing necrotic polyp which was removed with hot snare. Residual polyp tissue was removed with biopsy forceps. There was some minor oozing and a couple of hemoclips were deployed for assurance of hemostasis. There was an additional polyp in the ascending colon removed with hot snare. In the descending colon there was an adenomatous appearing polyp removed with hot snare. Sigmoid polyp removed with cold snare. Clip was deployed for hemostasis. Rectosigmoid polyp x 3, tiny, removed with cold snare. A couple biopsies were obtained of the left colon to evaluate for any microscopic colitis. There was an atypical appearing anal papilla lesion which was removed with hot snare due to its atypical appearance. It was sent as anal lesion. . Findings:: Unable to fully cannulate terminal ileum Polyps as noted above, total of 7 polyps removed Intra-anal lesion removed with hot snare Recommendations:: Repeat colonoscopy pending pathology. Likely 3 years. Unclear as to the etiology of the patient's symptoms. Given the difficulty cannulating the terminal ileum evaluation of this may be reasonable with consideration of small bowel follow-through and/or CT scan with oral contrast. Complications:: None immediately apparent Estimated blood obtained (mL): 5 Colonoscopy Component Colonoscopy Component Was a colonoscopy performed during today's procedure?: Yes Recommended follow up colonoscopy of at least 10 years?: No If no, follow up colonoscopy recommended in ___ years?: 3 Reason for not recommending >/= 10 yr follow-up interval?: Polyps
--- NOTE | 2023-06-18 07:13 | EXP.ANES.CKL ---
[facility] Disclaimer: The information contained in this section may have been updated after the patient was seen, as this information can be updated by other users. Medical History Allergic rhinitis, unspecified Asthma Atrial fibrillation COPD (chronic obstructive pulmonary disease) Dyspnea on exertion History of COPD History of pacemaker Hyperlipidemia Hypertension Obstructive sleep apnea syndrome Pulmonary emphysema Surgical History History of breast lump removal History of cholecystectomy History of hernia surgery Family History Other Asthma Diabetes Family history of pacemaker Heart attack Hypertension Lung cancer Social History Smoking Status: Former smoker alcohol intake: current substance use type: denies use current occupational status: retired Travel in the last 8 weeks: None household members: spouse housing: apartment current occupational exposures/hazards: No caffeine: No [facility] Anesthesia Checklist Patient Identification Patient Identification: Arm Band and Verbal (Name & ) Structural Data Admitted From: Home Planned Operative Procedure/s: Colonoscopy Consent for Planned Operative Procedure(s) Verified: Yes NPO Status Verified Time NPO: 00:00 Additional verifications Anesthesia Reactions: No Hx Blood Transfusions: No Blood Transfusion Reaction: No Airway Assessment Mallampati Score:: Class II C-Spine Mobility Assessed: Yes TMJ Mobility Assessed: Yes Dentition: Good Dentition Neurological Assessment Level of Consciousness: Awake Hx Seizures: No Numbness or tingling in extremities: No Anesthesia Plan Anesthesia Risk discussed: Yes Anesthesia Plan: Verified ASA Class: III Anesthesia Type: MAC
[2023-06-18 07:23] VITALS: O2SAT 97
[2023-06-18 08:11] VITALS: BP 84/52; PULSE 79; RESP 14; TEMP 36.2; O2SAT 96
[2023-06-18 08:21] VITALS: BP 95/74; PULSE 80; RESP 16; O2SAT 98
[2023-06-18 08:31] VITALS: BP 114/62; PULSE 80; RESP 16; O2SAT 98
[2023-06-18 08:41] VITALS: BP 121/69; PULSE 86; RESP 16; TEMP 36.6; O2SAT 98
== END 2023-06-18 08:41 | disposition home or self-care (01) ==
PROVIDERS: PCP Family Medicine; Visit Provider Surgery
PROC: 0DJD8ZZ Inspection of Lower Intestinal Tract, Via Natural or Artificial Opening Endoscopic (ICD-10-PCS; CPT 45385; principal; 2023-06-18 07:30)
DX: Z12.11 Encounter for screening for malignant neoplasm of colon (principal); Z86.010 Personal history of colon polyps; D12.5 Benign neoplasm of sigmoid colon; D12.7 Benign neoplasm of rectosigmoid junction; D12.4 Benign neoplasm of descending colon; R85.613 High grade squamous intraepithelial lesion on cytologic smear of anus (HGSIL); E11.9 Type 2 diabetes mellitus without complications; Z79.01 Long term (current) use of anticoagulants; D12.2 Benign neoplasm of ascending colon
CPT/HCPCS: 45380; 45385; 82962; 85610; 88305; J2704

== ENCOUNTER 2023-07-05 08:25 | Outpatient (CLI) | payer MEDICARE, BC, SELFPAY ==
[2023-07-05 11:08] LABS: PHA INR Fingerstick 2.1 (0.9-1.1)
== END 2023-07-05 11:16 ==
LOC: ACC 08:25
PROVIDERS: PCP Family Medicine; Visit Provider Family Medicine
DX: Z79.01 Long term (current) use of anticoagulants (principal); Z51.81 Encounter for therapeutic drug level monitoring; I48.91 Unspecified atrial fibrillation
CPT/HCPCS: 85610; 99211; G0463

== ENCOUNTER 2023-07-12 09:13 | Outpatient (POV) | payer MEDICARE, BC, SELFPAY ==
[2023-07-12 10:09] VITALS: BP 127/67; PULSE 88; RESP 18; BMI 29.9
--- NOTE | 2023-07-12 10:24 | A.OFFVIS_ITS ---
[facility] Pain Management SOAP Note Subjective:: Patient is a pleasant 72-year-old male who presents today for medication refill and follow-up. Today he rates his pain an 8 out of 10. Patient denies any new trauma or injury. He does state that he feels like he has had a little bit better improvement with the addition of the Lyrica 100 mg 3 times a day. He denies any side effects from this medication. Patient is also managed with [place] 7.5 mg 5 times a day. His Nicolas has been reviewed and is appropriate. Review of Systems: General: No recent weight changes, no fever, no sleep disturbances Respiratory: No cough, no shortness of air, no recurring pulmonary infections Cardiovascular/peripheral vascular: No chest pain, no palpitations, no edema, no shortness of breath Gastrointestinal: No new onset incontinence, normal bowel movements reported Genitourinary: No new onset incontinence Musculoskeletal: Low back pain Psychiatric: [Normal mood/affect] Neurological: [Denies weakness in extremities], [denies balance issues] Objective:: Physical Exam: General: Alert and oriented x3, no acute distress, pleasant and cooperative Lungs: Respirations even and unlabored, symmetrical chest expansion Eyes: PERRL Musculoskeletal: Flexion and extension of lumbar [spine] somewhat guarded secondary to pain, [antalgic gait noted] Neurological: Speech clear, no gross sensory deficit Assessment:: Degenerative disc disease of lumbar spine with lumbar radiculopathy symptoms Plan:: I will refill the patient's [place] 7.5 mg 5 times a day and Lyrica 100 mg 3 times a day and provide a 1 month supply of this medication. Patient will return to clinic in 1 month for reevaluation of symptoms and plan of care. Risks and benefits of the medication have been explained in detail to the patient. The patient does understand the risk of dependence on the medication when given over a prolonged period. Patient has been advised of risks of oversedation with the prescribed medication. Narcan has been offered to the paitent in the event of oversedation. Patient has been advised that a family member should also be educated regarding administration of Narcan. The patient has been advised to consult with his/her primary care provider and pharmacist regarding drug-drug interaction of medications currently prescribed. Patient has been prescribed a controlled substance after being counseled on the medication, medication safety, and possible side effects. Opioid contract was reviewed and signed by the patient, and that they have agreed to all of the terms set forth by our compliance program. Patient has been instructed to contact the clinic with any concerns before the next appointment. Dr. Martel has reviewed this note and agrees with this plan of care. This note was dictated using voice recognition software and make contain errors or omissions. [facility] Disclaimer: The information contained in this section may have been updated after the patient was seen, as this information can be updated by other users. Medical History (Updated 07/08/23 @ 14:40 by Rene Nash MD) Allergic rhinitis, unspecified Asthma Atrial fibrillation COPD (chronic obstructive pulmonary disease) Dyspnea on exertion History of COPD History of pacemaker Hyperlipidemia Hypertension Obstructive sleep apnea syndrome Pulmonary emphysema Surgical History (Updated 07/08/23 @ 13:04 by SAVANA Torres) History of breast lump removal History of cholecystectomy History of colonoscopy History of hernia surgery Family History Other Asthma Diabetes Family history of pacemaker Heart attack Hypertension Lung cancer Social History Smoking Status: Former smoker alcohol intake: current substance use type: denies use current occupational status: other Travel in the last 8 weeks: None household members: spouse housing: apartment current occupational exposures/hazards: No caffeine: No
== END 2023-07-12 23:59 | disposition home or self-care (01) ==
PROVIDERS: PCP Family Medicine; Visit Provider Nurse Practitioner Family
DX: M51.16 Intervertebral disc disorders with radiculopathy, lumbar region (principal)
CPT/HCPCS: 99212; G0463

== ENCOUNTER 2023-07-21 11:30 | Outpatient (CLI) | payer MEDICARE, BC, SELFPAY ==
[2023-07-21 12:54] LABS: Blood Urea Nitrogen 18 mg/dl (9-20); Estimated Glomerular Filt Rate 74 ml/min (>60); GFR (African American) 89 ML/MIN (>60)
== END 2023-07-21 23:59 ==
PROVIDERS: PCP Family Medicine; Visit Provider Surgery
DX: R10.9 Unspecified abdominal pain (principal)
CPT/HCPCS: 36415; 82565; 84520

== ENCOUNTER 2023-07-26 07:43 | Outpatient (CLI) | payer MEDICARE, BC, SELFPAY ==
--- NOTE | 2023-07-26 07:44 | CT_ITS ---
FINAL REPORT CLINICAL HISTORY: rt lower quad pain/diarrhea COMPARISON: None FINDINGS: CT OF THE ABDOMEN AND PELVIS WITH CONTRAST Axial CT images of the abdomen and pelvis were obtained after the administration of oral and iv contrast. Coronal and sagittal reformatted images were also obtained and reviewed.This study was performed with techniques to keep radiation doses as low as reasonably achievable (ALARA). Individualized dose reduction techniques using automated exposure control or adjustment of mA and/or kV according to the patient's size were employed. Abdomen: The lung bases are clear. The heart is normal in size. Postoperative changes are present at the gastroesophageal junction. Mild fatty infiltration of the liver is present. The gallbladder has been surgically resected. The spleen is unremarkable. No adrenal mass is present. The pancreas has an unremarkable appearance. There are small bilateral renal cysts present. There is a left-sided small less than 3 mm nonobstructing stone. The aorta is normal in caliber. There are moderate vascular calcifications in the abdomen and pelvis. There is no free fluid or adenopathy. No mass or abnormal fluid collection is seen. Pelvis: The appendix normal in appearance. The urinary bladder is unremarkable. No inflammatory process is seen. There is no evidence of mass or adenopathy. There is no evidence of bowel obstruction. There is a left inguinal hernia present containing fat. IMPRESSION: Post cholecystectomy, with mild fatty infiltration of the liver. Postoperative changes at the GE junction. Small less than 3 mm in size left-sided nonobstructing renal stone, and small bilateral renal cysts. Reviewed, Interpreted and Dictated by Rene Fuentes III, MD Transcribed by Sheila Kahn Authenticated and [facility]
[2023-07-26] MEDS: SODIUM CHLORIDE 0.9% 10ML SYR (RAD ONLY) 10 ML IV (08:25)
[2023-07-26] MEDS: IOPAMIDOL-370 (76%);100ML BOTTLE 75 ML IV (08:25)
== END 2023-07-26 23:59 ==
LOC: RAD 07:44
PROVIDERS: PCP Family Medicine; Visit Provider Surgery
DX: R10.31 Right lower quadrant pain (principal)
CPT/HCPCS: 74177; Q9967

== ENCOUNTER 2023-08-11 09:04 | Outpatient (POV) | payer MEDICARE, BC, SELFPAY ==
--- NOTE | 2023-08-11 09:23 | EXP.PAIN.SOA ---
[facility] Pain Management SOAP Note Subjective:: Patient is a pleasant 72-year-old male who presents today for medication refill. Today he rates his pain an 8 out of 10. He denies any new change to the location or type of pain he experiences. He does state that he has done fine between this visit and our last. He is still doing well with his current medications of Lyrica 100 mg 3 times a day and Palisade 7.5 mg 5 times a day. His Nicolas has been reviewed and is appropriate. Review of Systems: General: No recent weight changes, no fever, no sleep disturbances Respiratory: No cough, no shortness of air, no recurring pulmonary infections Cardiovascular/peripheral vascular: No chest pain, no palpitations, no edema, no shortness of breath Gastrointestinal: No new onset incontinence, normal bowel movements reported Genitourinary: No new onset incontinence Musculoskeletal: Low back pain Psychiatric: [Normal mood/affect] Neurological: [Denies weakness in extremities], [denies balance issues] Objective:: Physical Exam: General: Alert and oriented x3, no acute distress, pleasant and cooperative Lungs: Respirations even and unlabored, symmetrical chest expansion Eyes: PERRL Musculoskeletal: Flexion and extension of lumbar [spine] somewhat guarded secondary to pain, [antalgic gait noted] Neurological: Speech clear, no gross sensory deficit Assessment:: Degenerative disc disease of lumbar spine with lumbar radiculopathy symptoms Plan:: I will refill the patient's Lyrica 100 mg 3 times a day and Palisade 7.5 mg 5 times a day and provide a 1 month supply of these medications. Patient will return to clinic in 1 month for reevaluation of symptoms and plan of care. Risks and benefits of the medication have been explained in detail to the patient. The patient does understand the risk of dependence on the medication when given over a prolonged period. Patient has been advised of risks of oversedation with the prescribed medication. Narcan has been offered to the paitent in the event of oversedation. Patient has been advised that a family member should also be educated regarding administration of Narcan. The patient has been advised to consult with his/her primary care provider and pharmacist regarding drug-drug interaction of medications currently prescribed. Patient has been prescribed a controlled substance after being counseled on the medication, medication safety, and possible side effects. Opioid contract was reviewed and signed by the patient, and that they have agreed to all of the terms set forth by our compliance program. Patient has been instructed to contact the clinic with any concerns before the next appointment. Dr. Martel has reviewed this note and agrees with this plan of care. This note was dictated using voice recognition software and make contain errors or omissions. [facility] Disclaimer: The information contained in this section may have been updated after the patient was seen, as this information can be updated by other users. Medical History Hyperlipidemia Hypertension Atrial fibrillation History of COPD Asthma History of pacemaker COPD (chronic obstructive pulmonary disease) Obstructive sleep apnea syndrome Allergic rhinitis, unspecified Pulmonary emphysema Dyspnea on exertion Surgical History History of colonoscopy History of breast lump removal History of hernia surgery History of cholecystectomy Family History Other Asthma Diabetes Family history of pacemaker Heart attack Hypertension Lung cancer Social History Smoking Status: Former smoker alcohol intake: current substance use type: denies use current occupational status: other Travel in the last 8 weeks: None household members: spouse housing: apartment current occupational exposures/hazards: No caffeine: No
[2023-08-11 09:37] VITALS: BP 146/65; PULSE 105; RESP 18; O2SAT 96; BMI 29.9
== END 2023-08-11 23:59 | disposition home or self-care (01) ==
PROVIDERS: PCP Family Medicine; Visit Provider Nurse Practitioner Family
DX: M51.16 Intervertebral disc disorders with radiculopathy, lumbar region (principal)
CPT/HCPCS: 99212; G0463

== ENCOUNTER 2023-08-19 08:25 | Outpatient (CLI) | payer MEDICARE, BC, SELFPAY ==
[2023-08-19 10:37] LABS: PHA INR Fingerstick 2.5 (0.9-1.1)
== END 2023-08-19 10:41 ==
LOC: ACC 08:27
PROVIDERS: PCP Family Medicine; Visit Provider Family Medicine
DX: Z51.81 Encounter for therapeutic drug level monitoring (principal); Z79.01 Long term (current) use of anticoagulants; I48.91 Unspecified atrial fibrillation
CPT/HCPCS: 85610; 99211; G0463

== ENCOUNTER 2023-09-09 08:19 | Outpatient (POV) | payer MEDICARE, BC, SELFPAY ==
[2023-09-09 08:25] VITALS: BP 130/60; PULSE 80; RESP 16; O2SAT 97; BMI 30.2
--- NOTE | 2023-09-09 09:02 | A.OFFVIS_ITS ---
[facility] Pain Management SOAP Note Subjective:: Patient is a pleasant 72-year-old male who presents today for medication refill and follow-up. Today he rates his pain an 8 out of 10. He states that he is doing well. Patient is currently managed with Lyrica 100 mg 3 times a day and [place] 7.5 mg 5 times a day. He denies any side effects from this medication. His Nicolas has been reviewed and reviewed. Review of Systems: General: No recent weight changes, no fever, no sleep disturbances Respiratory: No cough, no shortness of air, no recurring pulmonary infections Cardiovascular/peripheral vascular: No chest pain, no palpitations, no edema, no shortness of breath Gastrointestinal: No new onset incontinence, normal bowel movements reported Genitourinary: No new onset incontinence Musculoskeletal: Low back pain Psychiatric: [Normal mood/affect] Neurological: [Denies weakness in extremities], [denies balance issues] Objective:: Physical Exam: General: Alert and oriented x3, no acute distress, pleasant and cooperative Lungs: Respirations even and unlabored, symmetrical chest expansion Eyes: PERRL Musculoskeletal: Flexion and extension of lumbar [spine] somewhat guarded secondary to pain, [antalgic gait noted] Neurological: Speech clear, no gross sensory deficit Assessment:: Degenerative disc disease of lumbar spine with lumbar radiculopathy symptoms Plan:: Patient continues to do well with his current medicine regimen. I will refill his Lyrica and [place] and provide a 1 month supply of these medications. Patient will return to clinic in 1 month for reevaluation of symptoms and plan of care. Risks and benefits of the medication have been explained in detail to the patient. The patient does understand the risk of dependence on the medication when given over a prolonged period. Patient has been advised of risks of oversedation with the prescribed medication. Narcan has been offered to the paitent in the event of oversedation. Patient has been advised that a family member should also be educated regarding administration of Narcan. The patient has been advised to consult with his/her primary care provider and pharmacist regarding drug-drug interaction of medications currently prescribed. Patient has been prescribed a controlled substance after being counseled on the medication, medication safety, and possible side effects. Opioid contract was reviewed and signed by the patient, and that they have agreed to all of the terms set forth by our compliance program. Patient has been instructed to contact the clinic with any concerns before the next appointment. Dr. Martel has reviewed this note and agrees with this plan of care. This note was dictated using voice recognition software and make contain errors or omissions. [facility] Disclaimer: The information contained in this section may have been updated after the patient was seen, as this information can be updated by other users. Medical History Hyperlipidemia Hypertension Atrial fibrillation History of COPD Asthma History of pacemaker COPD (chronic obstructive pulmonary disease) Obstructive sleep apnea syndrome Allergic rhinitis, unspecified Pulmonary emphysema Dyspnea on exertion Surgical History History of colonoscopy History of breast lump removal History of hernia surgery History of cholecystectomy Family History Other Asthma Diabetes Family history of pacemaker Heart attack Hypertension Lung cancer Social History Smoking Status: Former smoker alcohol intake: current substance use type: denies use current occupational status: other Travel in the last 8 weeks: None household members: spouse housing: apartment current occupational exposures/hazards: No caffeine: No
== END 2023-09-09 23:59 | disposition home or self-care (01) ==
PROVIDERS: PCP Family Medicine; Visit Provider Nurse Practitioner Family
DX: M51.16 Intervertebral disc disorders with radiculopathy, lumbar region (principal)
CPT/HCPCS: 99212; G0463

== ENCOUNTER 2023-09-24 08:48 | Outpatient (CLI) | payer MEDICARE, BC, SELFPAY | END 2023-09-24 15:11 | LOC: ACC 08:49 | PROVIDERS: PCP Family Medicine; Visit Provider Family Medicine | DX: Z79.01 Long term (current) use of anticoagulants (principal); Z51.81 Encounter for therapeutic drug level monitoring; I48.19 Other persistent atrial fibrillation | CPT/HCPCS: 85610; 99211; G0463 ==

== ENCOUNTER 2023-10-11 14:55 | Outpatient (POV) | payer MEDICARE, BC, SELFPAY ==
[2023-10-11 14:56] VITALS: BP 143/70; PULSE 75; RESP 18; O2SAT 96; BMI 29.9
--- NOTE | 2023-10-11 15:10 | EXP.PAIN.SOA ---
[facility] Pain Management SOAP Note Subjective:: Patient is a pleasant 72-year-old male who presents today for medication refill and follow-up. Today he rates his pain an 8 out of 10. Patient denies any new trauma or injury. Patient states he is still doing well with his current medication regimen. Patient is currently managed with Lyrica 100 mg 3 times a day and [place] 7.5 mg 5 times a day. He denies any side effects from this medication. His Nicolas has been reviewed and is appropriate. Review of Systems: General: No recent weight changes, no fever, no sleep disturbances Respiratory: No cough, no shortness of air, no recurring pulmonary infections Cardiovascular/peripheral vascular: No chest pain, no palpitations, no edema, no shortness of breath Gastrointestinal: No new onset incontinence, normal bowel movements reported Genitourinary: No new onset incontinence Musculoskeletal: Low back pain Psychiatric: [Normal mood/affect] Neurological: [Denies weakness in extremities], [denies balance issues] Objective:: Physical Exam: General: Alert and oriented x3, no acute distress, pleasant and cooperative Lungs: Respirations even and unlabored, symmetrical chest expansion Eyes: PERRL Musculoskeletal: Flexion and extension of lumbar [spine] somewhat guarded secondary to pain, [antalgic gait noted] Neurological: Speech clear, no gross sensory deficit Assessment:: Degenerative disc disease of lumbar spine with lumbar radiculopathy symptoms Plan:: I will refill the patient's [place] and Lyrica and provide a 1 month supply of these medications. Patient will return to clinic in 1 month for reevaluation of symptoms and plan of care. Risks and benefits of the medication have been explained in detail to the patient. The patient does understand the risk of dependence on the medication when given over a prolonged period. Patient has been advised of risks of oversedation with the prescribed medication. Narcan has been offered to the paitent in the event of oversedation. Patient has been advised that a family member should also be educated regarding administration of Narcan. The patient has been advised to consult with his/her primary care provider and pharmacist regarding drug-drug interaction of medications currently prescribed. Patient has been prescribed a controlled substance after being counseled on the medication, medication safety, and possible side effects. Opioid contract was reviewed and signed by the patient, and that they have agreed to all of the terms set forth by our compliance program. Patient has been instructed to contact the clinic with any concerns before the next appointment. Dr. Martel has reviewed this note and agrees with this plan of care. This note was dictated using voice recognition software and make contain errors or omissions. [facility] Disclaimer: The information contained in this section may have been updated after the patient was seen, as this information can be updated by other users. Medical History Hyperlipidemia Hypertension Atrial fibrillation History of COPD Asthma History of pacemaker COPD (chronic obstructive pulmonary disease) Obstructive sleep apnea syndrome Allergic rhinitis, unspecified Pulmonary emphysema Dyspnea on exertion Surgical History History of colonoscopy History of breast lump removal History of hernia surgery History of cholecystectomy Family History Other Asthma Diabetes Family history of pacemaker Heart attack Hypertension Lung cancer Social History Smoking Status: Former smoker alcohol intake: current substance use type: denies use current occupational status: other Travel in the last 8 weeks: None household members: spouse housing: apartment current occupational exposures/hazards: No caffeine: No
[2023-10-11 16:07] LABS: Benzodiazepines Screen,Urine Negative ng/ml (<200)
[2023-10-11 16:08] LABS: Amphetamine/Metha Screen,Urine Negative ng/ml (<1000)
[2023-10-11 16:09] LABS: Barbiturates Screen,Urine Negative ng/ml (<200)
[2023-10-11 16:10] LABS: Methadone Screen,Urine Negative ng/ml (<300)
[2023-10-11 16:11] LABS: Cannabinoid Screen,Urine Negative ng/ml (<50)
[2023-10-11 16:12] LABS: Cocaine Screen,Urine Negative ng/ml (<300); Opiate Screen,Urine Positive ng/ml (<300)
[2023-10-11 16:13] LABS: Phencyclidine Screen,Urine Negative ng/ml (<25)
[2023-10-16 17:44] LABS: Codeine Negative (Cutoff=100); Hydrocodone Positive (.); Hydromorphone Positive (.); Morphine Negative (Cutoff=100); Opiates Positive (.)
== END 2023-10-11 23:59 | disposition home or self-care (01) ==
PROVIDERS: PCP Family Medicine; Visit Provider Nurse Practitioner Family
DX: Z79.891 Long term (current) use of opiate analgesic (principal); M51.16 Intervertebral disc disorders with radiculopathy, lumbar region
CPT/HCPCS: 80307; 80361; 80365; 99212; G0463; G0480

== ENCOUNTER 2023-11-05 08:48 | Outpatient (CLI) | payer MEDICARE, BC, SELFPAY ==
[2023-11-05 10:01] LABS: PHA INR Fingerstick 2.9 (0.9-1.1)
== END 2023-11-05 10:02 ==
LOC: ACC 08:48
PROVIDERS: PCP Family Medicine; Visit Provider Family Medicine
DX: Z79.01 Long term (current) use of anticoagulants (principal); I48.91 Unspecified atrial fibrillation
CPT/HCPCS: 85610; 99211; G0463

== ENCOUNTER 2023-11-15 08:17 | Outpatient (POV) | payer MEDICARE, BC, SELFPAY ==
[2023-11-15 08:32] VITALS: BP 118/58; PULSE 80; RESP 16; O2SAT 97; BMI 29.9
--- NOTE | 2023-11-15 08:39 | A.OFFVIS_ITS ---
[facility] Disclaimer: The information contained in this section may have been updated after the patient was seen, as this information can be updated by other users. Medical History Hyperlipidemia Hypertension Atrial fibrillation History of COPD Asthma History of pacemaker COPD (chronic obstructive pulmonary disease) Obstructive sleep apnea syndrome Allergic rhinitis, unspecified Pulmonary emphysema Dyspnea on exertion Surgical History History of colonoscopy History of breast lump removal History of hernia surgery History of cholecystectomy Family History Other Asthma Diabetes Family history of pacemaker Heart attack Hypertension Lung cancer Social History Smoking Status: Former smoker alcohol intake: current substance use type: denies use current occupational status: other Travel in the last 8 weeks: None household members: spouse housing: apartment current occupational exposures/hazards: No caffeine: No PM Subjective & Objective Subjective Subjective:: Patient is a pleasant 73-year-old male who presents today for medication refill and follow-up. Today he rates his pain an 8 out of 10. He denies any new trauma or injury. Patient does state that he ended up signing out of medicines on the first day due to our office being out last week. Patient is currently managed with Lyrica 100 mg 3 times a day and [place] 7.5 mg 5 times a day. He denies any side effects from this medication. His Nicolas has been reviewed and is appropriate. Review of Systems: General: No recent weight changes, no fever, no sleep disturbances Respiratory: No cough, no shortness of air, no recurring pulmonary infections Cardiovascular/peripheral vascular: No chest pain, no palpitations, no edema, no shortness of breath Gastrointestinal: No new onset incontinence, normal bowel movements reported Genitourinary: No new onset incontinence Musculoskeletal: Low back pain Psychiatric: [Normal mood/affect] Neurological: [Denies weakness in extremities], [denies balance issues] Pain at rest (0-10 scale): 8 Objective Objective:: Physical Exam: General: Alert and oriented x3, no acute distress, pleasant and cooperative Lungs: Respirations even and unlabored, symmetrical chest expansion Eyes: PERRL Musculoskeletal: Flexion and extension of lumbar [spine] somewhat guarded secondary to pain, [antalgic gait noted] Neurological: Speech clear, no gross sensory deficit Has patient had previous pain injection?: No Conservative treatment options previously tried: Home exercise plan Length of treatment: Longer than 6 weeks and Prescription medications Length of treatment: Longer than 6 weeks Meds Home Medications and Allergies Home Medications Medication Instructions Recorded Confirmed Type aspirin 81 mg tablet,delayed 81 mg PO DAILY Blood thinner 02/22/18 11/15/23 History release azelastine 205.5 mcg (0.15 %) 205.5 mcg intranasal DAILY 02/22/18 11/15/23 History nasal spray allergies fenofibrate micronized 134 mg 145 mg PO DAILY Cholesterol 02/22/18 11/15/23 History capsule metformin 500 mg tablet,extended 500 mg PO DAILY Diabetes 02/22/18 11/15/23 History release 24hr (osmotic) omeprazole 20 mg capsule,delayed 20 mg PO DAILY GERD 02/22/18 11/15/23 History release tamsulosin 0.4 mg capsule 0.4 mg PO HS bladder 02/22/18 11/15/23 History tizanidine 4 mg capsule 4 mg PO DAILY muscle relaxer 02/22/18 11/15/23 History amlodipine 5 mg tablet 5 mg PO DAILY HTN 03/11/20 11/15/23 History chlorthalidone 25 mg tablet 25 mg PO DAILY HTN 03/11/20 11/15/23 History losartan 100 mg tablet 100 mg PO DAILY HTN 03/11/20 11/15/23 History potassium chloride 10 mEq 10 meq PO DAILY supp. 03/11/20 11/15/23 History capsule,extended release rosuvastatin 40 mg tablet 40 mg PO DAILY Cholesterol 06/11/20 11/15/23 History glimepiride 2 mg tablet 2 mg PO DAILY Diabetes 05/12/21 11/15/23 History warfarin 5 mg tablet See Rx Instructions .Route 12/11/21 11/15/23 History .COMPLEX Blood thinner fluticasone propionate 50 1 spray intranasal DAILY ALLERGIES 01/18/23 11/15/23 History mcg/actuation nasal spray,suspension (Flonase Allergy Relief) montelukast 10 mg tablet 10 mg PO DAILY ALLERGIES 01/18/23 11/15/23 History (Singulair) budesonide-formoterol HFA 160 2 puff inhalation BID 90 days 04/12/23 11/15/23 Rx mcg-4.5 mcg/actuation aerosol #10.2 grams inhaler (Symbicort) carvedilol 6.25 mg tablet 6.25 mg PO DIRECTED BLOOD 07/27/23 11/15/23 History PRESSURE albuterol sulfate 90 mcg/actuation See Rx Instructions .Route 09/28/23 11/15/23 Rx aerosol inhaler .COMPLEX #8.5 grams hydrocodone 7.5 mg-acetaminophen 1 tab PO 5XDAY #150 tabs 10/11/23 11/15/23 Rx 325 mg tablet pregabalin 100 mg capsule 100 mg PO TID Pain #90 caps 10/11/23 11/15/23 Rx New Prescriptions to Start Prescriptions: Allergies Allergy/AdvReac Type Severity Reaction Status Date / Time levofloxacin Allergy Intermediate SWELLING Verified 07/27/23 12:54 AT SITE OF INJECTION Assessment and Plan *Assessment and plan (1) Degenerative disc disease, lumbar: Status: Acute Category: Medical Code(s): M51.36 - Other intervertebral disc degeneration, lumbar region (2) Lumbar radiculopathy: Status: Acute Category: Medical Code(s): M54.16 - Radiculopathy, lumbar region Plan I will refill the patient's Lyrica and [place] and provide 1 month supply of these medications. Patient will return to clinic in 1 month for reevaluation of symptoms and plan of care. Risks and benefits of the medication have been explained in detail to the patient. The patient does understand the risk of dependence on the medication when given over a prolonged period. Patient has been advised of risks of oversedation with the prescribed medication. Narcan has been offered to the paitent in the event of oversedation. Patient has been advised that a family member should also be educated regarding administration of Narcan. The patient has been advised to consult with his/her primary care provider and pharmacist regarding drug-drug interaction of medications currently prescribed. Patient has been prescribed a controlled substance after being counseled on the medication, medication safety, and possible side effects. Opioid contract was reviewed and signed by the patient, and that they have agreed to all of the terms set forth by our compliance program. Patient has been instructed to contact the clinic with any concerns before the next appointment. Dr. Martel has reviewed this note and agrees with this plan of care. This note was dictated using voice recognition software and make contain errors or omissions.
== END 2023-11-15 23:59 | disposition home or self-care (01) ==
PROVIDERS: PCP Family Medicine; Visit Provider Nurse Practitioner Family
DX: M51.36 Other intervertebral disc degeneration, lumbar region (principal); M54.16 Radiculopathy, lumbar region
CPT/HCPCS: 99212; G0463

== ENCOUNTER 2023-12-15 08:17 | Outpatient (POV) | payer MEDICARE, BC, SELFPAY ==
[2023-12-15 08:30] VITALS: BP 153/58; PULSE 72; RESP 16; O2SAT 97; BMI 29.9
--- NOTE | 2023-12-15 08:36 | A.OFFVIS_ITS ---
[facility] Disclaimer: The information contained in this section may have been updated after the patient was seen, as this information can be updated by other users. Medical History Hyperlipidemia Hypertension Atrial fibrillation History of COPD Asthma History of pacemaker COPD (chronic obstructive pulmonary disease) Obstructive sleep apnea syndrome Allergic rhinitis, unspecified Pulmonary emphysema Dyspnea on exertion Surgical History History of colonoscopy History of breast lump removal History of hernia surgery History of cholecystectomy Family History Other Asthma Diabetes Family history of pacemaker Heart attack Hypertension Lung cancer Social History Smoking Status: Former smoker alcohol intake: current substance use type: denies use current occupational status: retired Travel in the last 8 weeks: None household members: spouse housing: apartment current occupational exposures/hazards: No caffeine: No PM Subjective & Objective Subjective Subjective:: Patient is a pleasant 73-year-old male who presents today for medication refill and follow-up. Today he rates his pain an 8 out of 10. He denies any new trauma or injury. Patient is currently managed with [place] 7.5 mg 5 times a day and Lyrica 100 mg 3 times a day. He denies any side effects from this medication. His Nicolas has been reviewed and is appropriate. Review of Systems: General: No recent weight changes, no fever, no sleep disturbances Respiratory: No cough, no shortness of air, no recurring pulmonary infections Cardiovascular/peripheral vascular: No chest pain, no palpitations, no edema, no shortness of breath Gastrointestinal: No new onset incontinence, normal bowel movements reported Genitourinary: No new onset incontinence Musculoskeletal: Low back pain Psychiatric: [Normal mood/affect] Neurological: [Denies weakness in extremities], [denies balance issues] Pain at rest (0-10 scale): 8 Objective Objective:: Physical Exam: General: Alert and oriented x3, no acute distress, pleasant and cooperative Lungs: Respirations even and unlabored, symmetrical chest expansion Eyes: PERRL Musculoskeletal: Flexion and extension of lumbar [spine] somewhat guarded secondary to pain, [antalgic gait noted] Neurological: Speech clear, no gross sensory deficit Has patient had previous pain injection?: No Conservative treatment options previously tried: Home exercise plan Length of treatment: Longer than 6 weeks Meds Home Medications and Allergies Home Medications ?Medication ?Instructions ?Recorded ?Confirmed ?Type aspirin 81 mg tablet,delayed 81 mg PO DAILY Blood thinner 02/22/18 12/15/23 History release azelastine 205.5 mcg (0.15 %) 205.5 mcg intranasal DAILY 02/22/18 12/15/23 History nasal spray allergies fenofibrate micronized 134 mg 145 mg PO DAILY Cholesterol 02/22/18 12/15/23 History capsule metformin 500 mg tablet,extended 500 mg PO DAILY Diabetes 02/22/18 12/15/23 History release 24hr (osmotic) omeprazole 20 mg capsule,delayed 20 mg PO DAILY GERD 02/22/18 12/15/23 History release tamsulosin 0.4 mg capsule 0.4 mg PO HS bladder 02/22/18 12/15/23 History tizanidine 4 mg capsule 4 mg PO DAILY muscle relaxer 02/22/18 12/15/23 History amlodipine 5 mg tablet 5 mg PO DAILY HTN 03/11/20 12/15/23 History chlorthalidone 25 mg tablet 25 mg PO DAILY HTN 03/11/20 12/15/23 History losartan 100 mg tablet 100 mg PO DAILY HTN 03/11/20 12/15/23 History potassium chloride 10 mEq 10 meq PO DAILY supp. 03/11/20 12/15/23 History capsule,extended release rosuvastatin 40 mg tablet 40 mg PO DAILY Cholesterol 06/11/20 12/15/23 History glimepiride 2 mg tablet 2 mg PO DAILY Diabetes 05/12/21 12/15/23 History warfarin 5 mg tablet See Rx Instructions .Route 12/11/21 12/15/23 History .COMPLEX Blood thinner fluticasone propionate 50 1 spray intranasal DAILY ALLERGIES 01/18/23 12/15/23 History mcg/actuation nasal spray,suspension (Flonase Allergy Relief) montelukast 10 mg tablet 10 mg PO DAILY ALLERGIES 01/18/23 12/15/23 History (Singulair) budesonide-formoterol HFA 160 2 puff inhalation BID 90 days 04/12/23 12/15/23 Rx mcg-4.5 mcg/actuation aerosol #10.2 grams inhaler (Symbicort) carvedilol 6.25 mg tablet 6.25 mg PO DIRECTED BLOOD 07/27/23 12/15/23 History PRESSURE albuterol sulfate 90 mcg/actuation See Rx Instructions .Route 09/28/23 12/15/23 Rx aerosol inhaler .COMPLEX #8.5 grams hydrocodone 7.5 mg-acetaminophen 1 tab PO 5XDAY #150 tabs 11/15/23 12/15/23 Rx 325 mg tablet pregabalin 100 mg capsule 100 mg PO TID Pain #90 caps 11/15/23 12/15/23 Rx New Prescriptions to Start Prescriptions: Allergies Allergy/AdvReac Type Severity Reaction Status Date / Time levofloxacin Allergy Intermediate SWELLING Verified 07/27/23 12:54 AT SITE OF INJECTION Assessment and Plan *Assessment and plan (1) Lumbar radiculopathy: Status: Acute Category: Medical Code(s): M54.16 - Radiculopathy, lumbar region (2) Degenerative disc disease, lumbar: Status: Acute Category: Medical Code(s): M51.36 - Other intervertebral disc degeneration, lumbar region Plan I will refill the patient's Lyrica and [place] and provide 1 month supply of this medication. Patient will return to clinic in 1 month for reevaluation of symptoms and plan of care. Risks and benefits of the medication have been explained in detail to the patient. The patient does understand the risk of dependence on the medication when given over a prolonged period. Patient has been advised of risks of oversedation with the prescribed medication. Narcan has been offered to the paitent in the event of oversedation. Patient has been advised that a family member should also be educated regarding administration of Narcan. The patient has been advised to consult with his/her primary care provider and pharmacist regarding drug-drug interaction of medications currently prescribed. Patient has been prescribed a controlled substance after being counseled on the medication, medication safety, and possible side effects. Opioid contract was reviewed and signed by the patient, and that they have agreed to all of the terms set forth by our compliance program. Patient has been instructed to contact the clinic with any concerns before the next appointment. Dr. Martel has reviewed this note and agrees with this plan of care. This note was dictated using voice recognition software and make contain errors or omissions.
== END 2023-12-15 23:59 | disposition home or self-care (01) ==
PROVIDERS: PCP Family Medicine; Visit Provider Nurse Practitioner Family
DX: M51.16 Intervertebral disc disorders with radiculopathy, lumbar region (principal); Z87.891 Personal history of nicotine dependence; Z79.01 Long term (current) use of anticoagulants; Z79.899 Other long term (current) drug therapy
CPT/HCPCS: 99212; G0463

== ENCOUNTER 2023-12-17 08:44 | Outpatient (CLI) | payer MEDICARE, BC, SELFPAY ==
[2023-12-17 09:06] LABS: PHA INR Fingerstick 3.2 (0.9-1.1)
== END 2023-12-17 09:11 ==
LOC: ACC 08:45
PROVIDERS: PCP Family Medicine; Visit Provider Family Medicine
DX: Z79.01 Long term (current) use of anticoagulants (principal); I48.91 Unspecified atrial fibrillation
CPT/HCPCS: 85610; 99211; G0463

== ENCOUNTER 2024-01-17 14:05 | Outpatient (POV) | payer MEDICARE, BC, SELFPAY ==
--- NOTE | 2024-01-17 14:44 | EXP.PAIN.SOA ---
[facility] Disclaimer: The information contained in this section may have been updated after the patient was seen, as this information can be updated by other users. Medical History Hyperlipidemia Hypertension Atrial fibrillation History of COPD Asthma History of pacemaker COPD (chronic obstructive pulmonary disease) Obstructive sleep apnea syndrome Allergic rhinitis, unspecified Pulmonary emphysema Dyspnea on exertion Surgical History History of colonoscopy History of breast lump removal History of hernia surgery History of cholecystectomy Family History Other Asthma Diabetes Family history of pacemaker Heart attack Hypertension Lung cancer Social History Smoking Status: Former smoker alcohol intake: current substance use type: denies use current occupational status: retired Travel in the last 8 weeks: None household members: spouse housing: apartment current occupational exposures/hazards: No caffeine: No PM Subjective & Objective Subjective Subjective:: Patient is a pleasant 73-year-old male who presents today for medication refill and follow-up. Today he rates his pain an 8 out of 10. He denies any new trauma or injury. Patient states he does do well with his current medications. He is currently managed with Miranda 7.5 mg 5 times a day and Lyrica 100 mg 3 times a day. He denies any side effects from this medication. His Nicolas has been reviewed and is appropriate. Review of Systems: General: No recent weight changes, no fever, no sleep disturbances Respiratory: No cough, no shortness of air, no recurring pulmonary infections Cardiovascular/peripheral vascular: No chest pain, no palpitations, no edema, no shortness of breath Gastrointestinal: No new onset incontinence, normal bowel movements reported Genitourinary: No new onset incontinence Musculoskeletal: Low back pain Psychiatric: [Normal mood/affect] Neurological: [Denies weakness in extremities], [denies balance issues] Pain at rest (0-10 scale): 8 Objective Objective:: Physical Exam: General: Alert and oriented x3, no acute distress, pleasant and cooperative Lungs: Respirations even and unlabored, symmetrical chest expansion Eyes: PERRL Musculoskeletal: Flexion and extension of lumbar [spine] somewhat guarded secondary to pain, [antalgic gait noted] Neurological: Speech clear, no gross sensory deficit Has patient had previous pain injection?: No Conservative treatment options previously tried: Prescription medications Length of treatment: Longer than 12 weeks Meds Home Medications and Allergies Home Medications ?Medication ?Instructions ?Recorded ?Confirmed ?Type aspirin 81 mg tablet,delayed 81 mg PO DAILY Blood thinner 02/22/18 12/15/23 History release azelastine 205.5 mcg (0.15 %) 205.5 mcg intranasal DAILY 02/22/18 12/15/23 History nasal spray allergies fenofibrate micronized 134 mg 145 mg PO DAILY Cholesterol 02/22/18 12/15/23 History capsule metformin 500 mg tablet,extended 500 mg PO DAILY Diabetes 02/22/18 12/15/23 History release 24hr (osmotic) omeprazole 20 mg capsule,delayed 20 mg PO DAILY GERD 02/22/18 12/15/23 History release tamsulosin 0.4 mg capsule 0.4 mg PO HS bladder 02/22/18 12/15/23 History tizanidine 4 mg capsule 4 mg PO DAILY muscle relaxer 02/22/18 12/15/23 History amlodipine 5 mg tablet 5 mg PO DAILY HTN 03/11/20 12/15/23 History chlorthalidone 25 mg tablet 25 mg PO DAILY HTN 03/11/20 12/15/23 History losartan 100 mg tablet 100 mg PO DAILY HTN 03/11/20 12/15/23 History potassium chloride 10 mEq 10 meq PO DAILY supp. 03/11/20 12/15/23 History capsule,extended release rosuvastatin 40 mg tablet 40 mg PO DAILY Cholesterol 06/11/20 12/15/23 History glimepiride 2 mg tablet 2 mg PO DAILY Diabetes 05/12/21 12/15/23 History warfarin 5 mg tablet See Rx Instructions .Route 12/11/21 12/15/23 History .COMPLEX Blood thinner fluticasone propionate 50 1 spray intranasal DAILY ALLERGIES 01/18/23 12/15/23 History mcg/actuation nasal spray,suspension (Flonase Allergy Relief) montelukast 10 mg tablet 10 mg PO DAILY ALLERGIES 01/18/23 12/15/23 History (Singulair) budesonide-formoterol HFA 160 2 puff inhalation BID 90 days 04/12/23 12/15/23 Rx mcg-4.5 mcg/actuation aerosol #10.2 grams inhaler (Symbicort) carvedilol 6.25 mg tablet 6.25 mg PO DIRECTED BLOOD 07/27/23 12/15/23 History PRESSURE albuterol sulfate 90 mcg/actuation See Rx Instructions .Route 09/28/23 12/15/23 Rx aerosol inhaler .COMPLEX #8.5 grams hydrocodone 7.5 mg-acetaminophen 1 tab PO 5XDAY #150 tabs 12/15/23 Rx 325 mg tablet pregabalin 100 mg capsule 100 mg PO TID Pain #90 caps 12/15/23 Rx hydrocodone 7.5 mg-acetaminophen 1 tab PO QID #15 tabs 12/30/23 Rx 325 mg tablet pregabalin 100 mg capsule 100 mg PO TID #9 caps 12/30/23 Rx New Prescriptions to Start Prescriptions: Allergies Allergy/AdvReac Type Severity Reaction Status Date / Time levofloxacin Allergy Intermediate SWELLING Verified 07/27/23 12:54 AT SITE OF INJECTION Assessment and Plan *Assessment and plan (1) Lumbar radiculopathy: Status: Acute Category: Medical Code(s): M54.16 - Radiculopathy, lumbar region (2) Degenerative disc disease, lumbar: Status: Acute Category: Medical Code(s): M51.36 - Other intervertebral disc degeneration, lumbar region Plan I will refill the patient's Miranda and Lyrica and provide a 1 month supply of this medication. Patient will return to clinic in 1 month for reevaluation of symptoms and plan of care. Risks and benefits of the medication have been explained in detail to the patient. The patient does understand the risk of dependence on the medication when given over a prolonged period. Patient has been advised of risks of oversedation with the prescribed medication. Narcan has been offered to the paitent in the event of oversedation. Patient has been advised that a family member should also be educated regarding administration of Narcan. The patient has been advised to consult with his/her primary care provider and pharmacist regarding drug-drug interaction of medications currently prescribed. Patient has been prescribed a controlled substance after being counseled on the medication, medication safety, and possible side effects. Opioid contract was reviewed and signed by the patient, and that they have agreed to all of the terms set forth by our compliance program. Patient has been instructed to contact the clinic with any concerns before the next appointment. Dr. Martel has reviewed this note and agrees with this plan of care. This note was dictated using voice recognition software and make contain errors or omissions.
[2024-01-17 14:59] VITALS: BP 158/76; PULSE 74; RESP 16; O2SAT 99; BMI 29.9
== END 2024-01-17 23:59 | disposition home or self-care (01) ==
PROVIDERS: PCP Family Medicine; Visit Provider Nurse Practitioner Family
DX: M51.16 Intervertebral disc disorders with radiculopathy, lumbar region (principal); Z87.891 Personal history of nicotine dependence; Z79.01 Long term (current) use of anticoagulants; Z79.899 Other long term (current) drug therapy
CPT/HCPCS: 99212; G0463

== ENCOUNTER 2024-01-28 08:48 | Outpatient (CLI) | payer MEDICARE, BC, SELFPAY ==
[2024-01-28 10:04] LABS: PHA INR Fingerstick 3.1 (0.9-1.1)
== END 2024-01-28 10:07 ==
LOC: ACC 08:49
PROVIDERS: PCP Family Medicine; Visit Provider Family Medicine
DX: Z79.01 Long term (current) use of anticoagulants (principal); I48.91 Unspecified atrial fibrillation
CPT/HCPCS: 85610; 99211; G0463

== ENCOUNTER 2024-02-10 13:32 | Outpatient (POV) | payer MEDICARE, BC, SELFPAY ==
--- NOTE | 2024-02-10 13:37 | A.OFFVIS_ITS ---
[facility] Disclaimer: The information contained in this section may have been updated after the patient was seen, as this information can be updated by other users. Medical History Hyperlipidemia Hypertension Atrial fibrillation History of COPD Asthma History of pacemaker COPD (chronic obstructive pulmonary disease) Obstructive sleep apnea syndrome Allergic rhinitis, unspecified Pulmonary emphysema Dyspnea on exertion Surgical History History of colonoscopy History of breast lump removal History of hernia surgery History of cholecystectomy Family History Other Asthma Diabetes Family history of pacemaker Heart attack Hypertension Lung cancer Social History Smoking Status: Former smoker alcohol intake: current substance use type: denies use current occupational status: other Travel in the last 8 weeks: None household members: spouse housing: apartment current occupational exposures/hazards: No caffeine: No PM Subjective & Objective Subjective Subjective:: Patient is a pleasant 73-year-old male who presents today for medication refill and follow-up. Today he rates his pain an 8 out of 10. He does state from our last visit he did have a tooth pulled along the right side and now he is having more issues with his jaw being locked and he can only open it so far. He is currently managed with [place] 7.5 mg 5 times a day and Lyrica 100 mg 3 times a day. He denies any side effects from this medication. His Nicolas has been reviewed and is appropriate. Review of Systems: General: No recent weight changes, no fever, no sleep disturbances Respiratory: No cough, no shortness of air, no recurring pulmonary infections Cardiovascular/peripheral vascular: No chest pain, no palpitations, no edema, no shortness of breath Gastrointestinal: No new onset incontinence, normal bowel movements reported Genitourinary: No new onset incontinence Musculoskeletal: Low back pain Psychiatric: [Normal mood/affect] Neurological: [Denies weakness in extremities], [denies balance issues] Pain at rest (0-10 scale): 8 Objective Objective:: Physical Exam: General: Alert and oriented x3, no acute distress, pleasant and cooperative Lungs: Respirations even and unlabored, symmetrical chest expansion Eyes: PERRL Musculoskeletal: Flexion and extension of lumbar [spine] somewhat guarded secondary to pain, [antalgic gait noted] Neurological: Speech clear, no gross sensory deficit Has patient had previous pain injection?: No Conservative treatment options previously tried: Home exercise plan Length of treatment: Longer than 12 weeks Meds Home Medications and Allergies Home Medications ?Medication ?Instructions ?Recorded ?Confirmed ?Type aspirin 81 mg tablet,delayed 81 mg PO DAILY Blood thinner 02/22/18 01/17/24 History release azelastine 205.5 mcg (0.15 %) 205.5 mcg intranasal DAILY 02/22/18 01/17/24 History nasal spray allergies fenofibrate micronized 134 mg 145 mg PO DAILY Cholesterol 02/22/18 01/17/24 History capsule metformin 500 mg tablet,extended 500 mg PO DAILY Diabetes 02/22/18 01/17/24 Hi story release 24hr (osmotic) omeprazole 20 mg capsule,delayed 20 mg PO DAILY GERD 02/22/18 01/17/24 History release tamsulosin 0.4 mg capsule 0.4 mg PO HS bladder 02/22/18 01/17/24 History tizanidine 4 mg capsule 4 mg PO DAILY muscle relaxer 02/22/18 01/17/24 History amlodipine 5 mg tablet 5 mg PO DAILY HTN 03/11/20 01/17/24 History chlorthalidone 25 mg tablet 25 mg PO DAILY HTN 03/11/20 01/17/24 History losartan 100 mg tablet 100 mg PO DAILY HTN 03/11/20 01/17/24 History potassium chloride 10 mEq 10 meq PO DAILY supp. 03/11/20 01/17/24 History capsule,extended release rosuvastatin 40 mg tablet 40 mg PO DAILY Cholesterol 06/11/20 01/17/24 History glimepiride 2 mg tablet 2 mg PO DAILY Diabetes 05/12/21 01/17/24 History warfarin 5 mg tablet See Rx Instructions .Route 12/11/21 01/17/24 History .COMPLEX Blood thinner fluticasone propionate 50 1 spray intranasal DAILY ALLERGIES 01/18/23 01/17/24 History mcg/actuation nasal spray,suspension (Flonase Allergy Relief) montelukast 10 mg tablet 10 mg PO DAILY ALLERGIES 01/18/23 01/17/24 History (Singulair) budesonide-formoterol HFA 160 2 puff inhalation BID 90 days 04/12/23 01/17/24 Rx mcg-4.5 mcg/actuation aerosol #10.2 grams inhaler (Symbicort) carvedilol 6.25 mg tablet 6.25 mg PO DIRECTED BLOOD 07/27/23 01/17/24 History PRESSURE albuterol sulfate 90 mcg/actuation See Rx Instructions .Route 09/28/23 01/17/24 Rx aerosol inhaler .COMPLEX #8.5 grams hydrocodone 7.5 mg-acetaminophen 1 tab PO QID #15 tabs 12/30/23 01/17/24 Rx 325 mg tablet pregabalin 100 mg capsule 100 mg PO TID #9 caps 12/30/23 01/17/24 Rx hydrocodone 7.5 mg-acetaminophen 1 tab PO 5XDAY #150 tabs 02/10/24 Rx 325 mg tablet pregabalin 100 mg capsule 100 mg PO TID Pain #90 caps 02/10/24 Rx New Prescriptions to Start Prescriptions: hydrocodone-acetaminophen FelipeAna M A pregabalin Wang,Ana M A Allergies Allergy/AdvReac Type Severity Reaction Status Date / Time levofloxacin Allergy Intermediate SWELLING Verified 07/27/23 12:54 AT SITE OF INJECTION Assessment and Plan *Assessment and plan (1) Lumbar radiculopathy: Status: Acute Category: Medical Code(s): M54.16 - Radiculopathy, lumbar region (2) Degenerative disc disease, lumbar: Status: Acute Qualifiers: Disc-related pain type: discogenic back pain and lower extremity pain Qualified Code(s): M51.362 - Other intervertebral disc degeneration, lumbar region with discogenic back pain and lower extremity pain Category: Medical Code(s): M51.36 - Other intervertebral disc degeneration, lumbar region Plan I will refill the patient's [place] and Lyrica and provide a 1 month supply of these medications. I did discuss with the patient that we may be able to help with his current symptoms related to his limited range of motion of his jaw and that we may be able to do a TMJ joint injection. Patient states that he does have a appointment scheduled with his primary care and he will let us know at his next visit. patient will return to clinic in 1 month for reevaluation of symptoms and plan of care. Risks and benefits of the medication have been explained in detail to the patient. The patient does understand the risk of dependence on the medication when given over a prolonged period. Patient has been advised of risks of oversedation with the prescribed medication. Narcan has been offered to the paitent in the event of oversedation. Patient has been advised that a family member should also be educated regarding administration of Narcan. The patient has been advised to consult with his/her primary care provider and pharmacist regarding drug-drug interaction of medications currently prescribed. Patient has been prescribed a controlled substance after being counseled on the medication, medication safety, and possible side effects. Opioid contract was reviewed and signed by the patient, and that they have agreed to all of the terms set forth by our compliance program. Patient has been instructed to contact the clinic with any concerns before the next appointment. Dr. Martel has reviewed this note and agrees with this plan of care. This note was dictated using voice recognition software and make contain errors or omissions.
[2024-02-10 13:59] VITALS: BP 164/83; PULSE 71; RESP 16; O2SAT 97; BMI 29.9
== END 2024-02-10 23:59 | disposition home or self-care (01) ==
PROVIDERS: PCP Family Medicine; Visit Provider Nurse Practitioner Family
DX: M51.16 Intervertebral disc disorders with radiculopathy, lumbar region (principal); Z87.891 Personal history of nicotine dependence; Z79.01 Long term (current) use of anticoagulants; Z79.899 Other long term (current) drug therapy
CPT/HCPCS: 99212; G0463

== ENCOUNTER 2024-02-18 13:07 | Outpatient (CLI) | payer MEDICARE, BC, SELFPAY ==
--- NOTE | 2024-02-18 13:12 | CT_ITS ---
FINAL REPORT CLINICAL HISTORY: . FINDINGS: Axial images of the head were obtained without contrast. Coronal reformatted images were also obtained. This study was performed with techniques to keep radiation doses as low as reasonably achievable (ALARA). Individualized dose reduction techniques using automated exposure control or adjustment of mA and/or kV according to the patient''s size were employed. There is generalized age-appropriate atrophy. Periventricular low-attenuation areas are seen consistent with mild chronic ischemic changes. There is no evidence of intracranial hemorrhage or mass. There is no evidence of acute infarct. There is no evidence of shift of the midline structures. No skull abnormality is seen on the bone window images. IMPRESSION: Atrophy and mild periventricular chronic ischemic changes. No acute intracranial abnormality identified. Reviewed, Interpreted and Dictated by Rene Fuentes III, MD Transcribed by Emelia Marc Authenticated and [facility]
--- NOTE | 2024-02-18 13:12 | CT_ITS ---
FINAL REPORT TECHNIQUE: Thin section axial CT images with coronal and sagittal reformats were performed through the neck. This study was performed with techniques to keep radiation doses as low as reasonably achievable (ALARA). Individualized dose reduction techniques using automated exposure control or adjustment of mA and/or kV according to the patient''s size were employed. CLINICAL HISTORY: HEADACHE PAIN IN FACE FINDINGS: No adenopathy or mass lesion is present . There are multiple calcifications in the tonsillar pillars which are post inflammatory and likely represent tonsillar stones. Salivary glands are normal. Larynx is unremarkable. Thyroid gland is unremarkable. There are moderate carotid artery calcifications. IMPRESSION: No acute process. Multiple calcifications in the tonsillar pillars are postinflammatory and likely represent tonsillar stones. Moderate carotid artery calcifications. Reviewed, Interpreted and Dictated by Rene Fuentes III, MD Transcribed by Emelia Marc Authenticated and [facility]
== END 2024-02-18 23:59 | disposition home or self-care (01) ==
LOC: RAD 13:09
PROVIDERS: PCP Family Medicine; Visit Provider Nurse Practitioner Family
DX: R51.9 Headache, unspecified (principal)
CPT/HCPCS: 70450; 70490

== ENCOUNTER 2024-02-25 08:55 | Outpatient (CLI) | payer MEDICARE, BC, SELFPAY ==
[2024-02-25 13:55] LABS: PHA INR Fingerstick 3.8 (0.9-1.1)
== END 2024-02-25 14:17 ==
LOC: ACC 08:56
PROVIDERS: PCP Family Medicine; Visit Provider Family Medicine
DX: Z79.01 Long term (current) use of anticoagulants (principal); I48.91 Unspecified atrial fibrillation
CPT/HCPCS: 85610; 99211; G0463

== ENCOUNTER 2024-03-03 08:51 | Outpatient (CLI) | payer MEDICARE, BC, SELFPAY ==
[2024-03-03 09:08] LABS: PHA INR Fingerstick 2.7 (0.9-1.1)
== END 2024-03-03 09:10 ==
LOC: ACC 08:53
PROVIDERS: PCP Family Medicine; Visit Provider Family Medicine
DX: Z79.01 Long term (current) use of anticoagulants (principal); I48.91 Unspecified atrial fibrillation
CPT/HCPCS: 85610; 99211; G0463

== ENCOUNTER 2024-03-13 13:03 | Outpatient (POV) | payer MEDICARE, BC, SELFPAY ==
--- OUTSIDE RECORDS SUMMARY | 2024-03-13 13:06 | XMS_ITS ---
Author Organization [facility] Address [address] [facility] [address] [facility] [address] [place] [id number] Care Team Providers Care Hot Worker Name Role Phone Santino Pisano Primary Care Provider [phone] Richardson Kuhn [facility] [phone] REASON FOR VISIT Test results Encounters Encounter Location Date Provider Diagnosis [facility] [address] [facility] [address] [facility] [address] [place] [id number] 03/12/2024 Richardson Kuhn PLAN OF TREATMENT Next Appt Details Provider Name:Richardson Dixon, 09/07/2024 09:15:00 AM, [address] [facility] [address] [facility], [address], [place], [id number],
--- OUTSIDE RECORDS SUMMARY | 2024-03-13 13:06 | XMS_ITS ---
Author Organization [facility] Address [address] [place] [id number] Care Team Providers Care Delineator Name Role Phone Santino Pisano Primary Care Provider Richardson Kuhn [phone] ALLERGIES Allergen (clinical drug ingredient) Drug/Non Drug Allergy documented on EMR Reaction Allergy Type Onset Date Status Levaquin neuropathy Drug Allergy Active metoprolol Metoprolol headache Drug Allergy Activ e vancomycin Vancomycin Unknown Drug Allergy Activ e RESULTS Component Value Reference Range Notes Glycohemoglobin A1c (in hous e) Reviewed date:03/12/2024 09:01:45 PM Interpretation:7.2% Performing Lab: Notes/Report: 7.2% glycohemoglobin 7.2% 5 - 6.5 % P-Comprehensive Metabolic Pa guicho (CMP) Reviewed date:03/12/2024 09:01:45 PM Interpretation:gluc 130, alk phos 30 Performing Lab: Notes/Report: Test performed by [facility], [employer] [address] [facility] , [address], [place] [address] Ketan Zamora MD, Diet Counselor CLIA: [id number] Sodium 142 135-145 mmol/L Potassium 4.0 3.5-5.3 [...] 32 Performing Lab: Notes/Report: Test performed by [facility], [address] , [address], [place] [address] Ketan Zamora MD, Diet Counselor CLIA: [id number] Cholesterol 105 <200 mg/dL Triglycerides 181 <150 [...] Interpretation:Normal Performing Lab: Notes/Report: Test performed by [facility], [address] , [facility], [place] [address] Ketan Zamora MD, Diet Counselor CLIA: [id number] PSA 1.16 <4.00 ng/mL Please note this is an ultrasensitive PSA assay with a lower limit of detection of 0.014 ng/mL. This test is performed by the [employer] ECLIA methodology. Values obtained with different assay methods or kits cannot be directly compared. REASON FOR VISIT 6 Month Check Up, Needs laabs with PSA & flu vaccine MEDICATIONS Medication SIG (Take, Route, Frequency, Duration) Notes [...] times a day for 30 days Active IMMUNIZATIONS Vaccine Route Administration Date Status Comme nts Fluzone High Dose (65yr and older) IM Intramuscular 03/07/2024 Administered PROBLEMS Problem Type ICD Code Onset Dates Problem Status W/U Status Risk SNOMED Code Notes Problem Hyperlipidemia associated with type 2 diabetes mellitus (E11.69) Active confirmed Problem Diabetes mellitus with hyperglycemia (E11.65) Active confirmed Hyperglycemia due to type 2 diabetes mellitus (390805310612189 ) VITAL SIGNS Weight 236.8 lbs 03/07/2024 Blood pressure systolic 126 mm Hg 03/07/20 24 Blood pressure diastolic 62 mm Hg 024 Heart Rate 76 /min 03/07/2024 Height 74 in 03/07/2024 BMI 30.40 kg/m2 03/07/2024 Encounters Encounter Location Date Provider Diagnosis [facility] [address] [facility] 36 [facility] [address] [place], [place] [id number] 03/07/2024 Richardson Kuhn Hyperlipidemia associated with type 2 diabetes mellitus E11.69 ; Diabetes mellitus with hyperglycemia E11.65 ; Screening for prostate cancer Z12.5 ; Trismus R25.2 and Encounter for immunization Z23 ASSESSMENTS Encounter Date Diagnosis Assessment Notes Treatment Notes Treatment Clinical Notes 03/07/2024 Hyperlipidemia associated with type 2 diabetes mellitus (ICD-10 - E11.69) 03/07/2024 Diabetes mellitus with hyperglycemia (ICD-10 - E11.65) 03/07/2024 Screening for prostate cancer (ICD-10 - Z12.5) 03/07/2024 Trismus (ICD-10 - R25.2) Continue f/u with ENT 03/07/2024 Encounter for immunization (ICD-10 - Z23) PLAN OF TREATMENT Medication Medication Name Sig Start Date Stop Date Notes Albuterol Sulfate HFA 108 (9 0 Base) MCG/ACT 2 puff(s) inhaled every 6 hours for 30 day(s) Montelukast Sodium 10 MG 1 tablet Orally Once a day Treatment Notes Assessment Notes Trismus Continue f/u with EN T Next Appt Details Follow Up: 6 Months, Reason: Provider Name:Richardson Dixon, 09/07/2024 09:15:00 AM, [address] [facility], [address], [place], [id number], Progress Notes * Examination Category Sub-Category Detail Notes Cardiology Lungs: clear, no rales or wheezes HEENT: Trismus noted. He is only able to open his incisors to about a centimeter. There is tenderness over the right masseter muscle. No obvious mass. Heart sounds: Irregularly irregula r Extremities: no leg edema Murmur, click , gallop: none General Appearance: pleasant, NAD
--- OUTSIDE RECORDS SUMMARY | 2024-03-13 13:06 | XMS_ITS ---
Author Organization [place] Address [address] [facility] 36 [facility] [address] [place] [phone] Care Team Providers Care Riveting Machine Operator Name Role Phone Santino Pisano Primary Care Provider [phone] REASON FOR VISIT needs C-pap supplies MEDICATIONS Medication SIG (Take, Route, Fr equency, Duration) Notes Start Date End Date Status CPAP Supplies - as directed as directed 09/03/2023 Active Encounters Encounter Location Date Provider Diagnosis [place] [address] [facility] 36 [facility] [address] [place] [id number] 02/08/2024 Santino Pisano GREG (obstructive sleep apnea) G47.33 ASSESSMENTS Encounter Date Diagnosis Assessment Notes Treatment Notes Treatment Clinical Notes 02/08/2024 GREG (obstructive sleep apnea) (ICD-10 - G47.33) PLAN OF TREATMENT Medication Medication Name Sig Start Date Stop Date Notes CPAP Supplies - as directed as directed 09/03/2023 Next Appt Details Provider Name:Richardson Dixon, 09/07/2024 09:15:00 AM, [address] [facility], [address], [place], [phone],
--- OUTSIDE RECORDS SUMMARY | 2024-03-13 13:06 | XMS_ITS | Patient Health Record ---
[facility] Address [address] [facility] [address] [place] [id number] Care Team Providers Care Stenotype Operator Name Role Phone Santino Pisano Primary Care Provider [phone] Richardson Kuhn Unavailable [phone] Bernardino Lynn Unavailable [phone] ALLERGIES Allergen (clinical drug ingredient) Drug/Non Drug [...] 30 Performing Lab: Notes/Report: Test performed by [facility], [facility] , [address], [place] [address] Ketan Zamora MD, Group Counselor CLIA: [id number] Sodium 142 135-145 mmol/L Potassium 4.0 3.5-5.3 [...] 32 Performing Lab: Notes/Report: Test performed by [facility], [address] , [place] [address] Ketan Zamora MD, Group Counselor CLIA: [id number] Cholesterol 105 <200 mg/dL Triglycerides 181 <150 [...] Interpretation:Normal Performing Lab: Notes/Report: Test performed by [facility] [address] , [address] , [place] [address] Ketan Zamora MD, Group Counselor CLIA: [id number] PSA 1.16 <4.00 ng/mL Please note this is an ultrasensitive PSA assay with a lower limit of detection of 0.014 ng/mL. This test is performed by the Agustina ECLIA methodology. Values obtained with different assay methods or kits cannot be directly compared. H-INR Reviewed date:03/03/2024 10:10:29 AM Interpretation: Performing Lab: Notes/Report: POCINRFS 2.7 0.9-1.1 Results sent to: Francisco Kuhn MD Pharmacist recommendation for Warfarin therapy is: INR TODAY VIA FINGERSTICK IS 2.7. RECOMMEND CONTINUING CURRENT WARFARIN DOSE AT 10MG DAILY. PATIENT WILL F/U IN 4 WEEKS. FOR DETAILED INFORMATION-PLEASE REVIEW PROGRESS NOTE IN THE ASSESSMENTS AND ANTICOAGULATION CLINIC SECTION ANTICOAGULATION CLINIC IN PCI/CLINICAL REVIEW INDICATION INR RANGE THERAPY FOR DVT, PE, ATRIAL FIB; 2.0 - 3.0 PROPHYLAXIS FOR VTE THERAPY FOR MECHANICAL HEART 2.5 - 3.5 VALVE; PREVENTION OF SYSTEMIC EMBOLISM SECONDARY TO AMI H-INR Reviewed date:09/27/2023 09:50:40 AM Interpretation: Performing Lab: Notes/Report: POCINRFS 2.0 0.9-1.1 Results sent to: Francisco Kuhn MD Pharmacist recommendation for Warfarin therapy is: PATIENT INR 2.0 TODAY VIA FINGERSTICK. RECOMMENDED PATIENT CONTINUE WITH WARFARIN 10 MG DAILY AT THIS TIME. FOR DETAILED INFORMATION-PLEASE REVIEW PROGRESS NOTE IN THE ASSESSMENTS AND ANTICOAGULATION CLINIC SECTION ANTICOAGULATION CLINIC IN PCI/CLINICAL REVIEW INDICATION INR RANGE THERAPY FOR DVT, PE, ATRIAL FIB; 2.0 - 3.0 PROPHYLAXIS FOR VTE THERAPY FOR MECHANICAL HEART 2.5 - 3.5 VALVE; PREVENTION OF SYSTEMIC EMBOLISM SECONDARY TO AMI H-INR Reviewed date:11/05/2023 02:58:22 PM Interpretation: Performing Lab: Notes/Report: POCINRFS 2.9 0.9-1.1 Results sent to: Francisco Kuhn MD Pharmacist recommendation for Warfarin therapy is: PATIENT INR 2.9 TODAY VIA FINGERSTICK. RECOMMENDED PATIENT CONTINUE WITH WARFARIN 10 MG DAILY. FOR DETAILED INFORMATION-PLEASE REVIEW PROGRESS NOTE IN THE ASSESSMENTS AND ANTICOAGULATION CLINIC SECTION ANTICOAGULATION CLINIC IN PCI/CLINICAL REVIEW INDICATION INR RANGE THERAPY FOR DVT, PE, ATRIAL FIB; 2.0 - 3.0 PROPHYLAXIS FOR VTE THERAPY FOR MECHANICAL HEART 2.5 - 3.5 VALVE; PREVENTION OF SYSTEMIC EMBOLISM SECONDARY TO AMI H-INR Reviewed date:01/28/2024 02:30:44 PM Interpretation: Performing Lab: Notes/Report: POCINRFS 3.1 0.9-1.1 Results sent to: Francisco Kuhn MD Pharmacist recommendation for Warfarin therapy is: [] FOR DETAILED INFORMATION-PLEASE REVIEW PROGRESS NOTE IN THE ASSESSMENTS AND ANTICOAGULATION CLINIC SECTION ANTICOAGULATION CLINIC IN PCI/CLINICAL REVIEW INDICATION INR RANGE THERAPY FOR DVT, PE, ATRIAL FIB; 2.0 - 3.0 PROPHYLAXIS FOR VTE THERAPY FOR MECHANICAL HEART 2.5 - 3.5 VALVE; PREVENTION OF SYSTEMIC EMBOLISM SECONDARY TO AMI H-INR Reviewed date:02/25/2024 04:10:19 PM Interpretation: Performing Lab: Notes/Report: POCINRFS 3.8 0.9-1.1 Results sent to: Francisco Kuhn MD Pharmacist recommendation for Warfarin therapy is: PATIENT INR 3.8 TODAY VIA FINGERSTICK. RECOMMENDED PATIENT TAKE REDUCED DOSE OF WARFARIN 5 MG X3 DAYS, THEN RESUME PREVIOUS DOSE. PATIENT HAS BEEN TAKING MEDROL DOSE MARISOL AND CLINDAMYCIN FOR SEVERAL DAYS NOW. FOR DETAILED INFORMATION-PLEASE REVIEW PROGRESS NOTE IN THE ASSESSMENTS AND ANTICOAGULATION CLINIC SECTION ANTICOAGULATION CLINIC IN PCI/CLINICAL REVIEW INDICATION INR RANGE THERAPY FOR DVT, PE, ATRIAL FIB; 2.0 - 3.0 PROPHYLAXIS FOR VTE THERAPY FOR MECHANICAL HEART 2.5 - 3.5 VALVE; PREVENTION OF SYSTEMIC EMBOLISM SECONDARY TO AMI H-INR Reviewed date:07/05/2023 11:49:52 AM Interpretation: Performing Lab: Notes/Report: POCINRFS 2.1 0.9-1.1 Results sent to: Francisco uKhn MD Pharmacist recommendation for Warfarin therapy is: PATIENT INR 2.1 TODAY VIA FINGERSTICK. RECOMMENDED PATIENT CONTINUE WITH WARFARIN 10 MG DAILY AT THIS TIME. FOR DETAILED INFORMATION-PLEASE REVIEW PROGRESS NOTE IN THE ASSESSMENTS AND ANTICOAGULATION CLINIC SECTION ANTICOAGULATION CLINIC IN PCI/CLINICAL REVIEW INDICATION INR RANGE THERAPY FOR DVT, PE, ATRIAL FIB; 2.0 - 3.0 PROPHYLAXIS FOR VTE THERAPY FOR MECHANICAL HEART 2.5 - 3.5 VALVE; PREVENTION OF SYSTEMIC EMBOLISM SECONDARY TO AMI H-INR Reviewed date:05/25/2023 03:21:38 PM Interpretation: Performing Lab: Notes/Report: POCINRFS 2.4 0.9-1.1 Results sent to: Francisco Kuhn MD Pharmacist recommendation for Warfarin therapy is: INR TODAY VIA FINGERSTICK IS 2.4. RECOMMEND PATIENT CONTINUE CURRENT WARFARIN DOSE AT 10MG DAILY. PATIENT WILL F/U IN 6 WEEKS. FOR DETAILED INFORMATION-PLEASE REVIEW PROGRESS NOTE IN THE ASSESSMENTS AND ANTICOAGULATION CLINIC SECTION ANTICOAGULATION CLINIC IN PCI/CLINICAL REVIEW INDICATION INR RANGE THERAPY FOR DVT, PE, ATRIAL FIB; 2.0 - 3.0 PROPHYLAXIS FOR VTE THERAPY FOR MECHANICAL HEART 2.5 - 3.5 VALVE; PREVENTION OF SYSTEMIC EMBOLISM SECONDARY TO AMI H-INR Reviewed date:04/15/2023 01:27:25 PM Interpretation: Performing Lab: Notes/Report: POCINRFS 2.1 0.9-1.1 Results sent to: Francisco Kuhn MD Pharmacist recommendation for Warfarin therapy is: PATIENT INR 2.1 TODAY VIA FINGERSTICK. RECOMMENDED PATIENT CONTINUE WITH WARFARIN 10 MG DAILY. FOR DETAILED INFORMATION-PLEASE REVIEW PROGRESS NOTE IN THE ASSESSMENTS AND ANTICOAGULATION CLINIC SECTION ANTICOAGULATION CLINIC IN PCI/CLINICAL REVIEW INDICATION INR RANGE THERAPY FOR DVT, PE, ATRIAL FIB; 2.0 - 3.0 PROPHYLAXIS FOR VTE THERAPY FOR MECHANICAL HEART 2.5 - 3.5 VALVE; PREVENTION OF SYSTEMIC EMBOLISM SECONDARY TO AMI H-INR Reviewed date:08/19/2023 11:38:33 AM Interpretation: Performing Lab: Notes/Report: POCINRFS 2.5 0.9-1.1 Results sent to: Francisco Kuhn MD Pharmacist recommendation for Warfarin therapy is: PATIENT INR 2.5 TODAY VIA FINGERSTICK. RECOMMENDED PATIENT CONTINUE WITH WARFARIN 10 MG DAILY. FOR DETAILED INFORMATION-PLEASE REVIEW PROGRESS NOTE IN THE ASSESSMENTS AND ANTICOAGULATION CLINIC SECTION ANTICOAGULATION CLINIC IN PCI/CLINICAL REVIEW INDICATION INR RANGE THERAPY FOR DVT, PE, ATRIAL FIB; 2.0 - 3.0 PROPHYLAXIS FOR VTE THERAPY FOR MECHANICAL HEART 2.5 - 3.5 VALVE; PREVENTION OF SYSTEMIC EMBOLISM SECONDARY TO AMI H-INR Reviewed date:12/17/2023 09:11:44 AM Interpretation: Performing Lab: Notes/Report: POCINRFS 3.2 0.9-1.1 Results sent to: Francisco Kuhn MD Pharmacist recommendation for Warfarin therapy is: INR TODAY VIA FINGERSTICK IS 3.2. RECOMMEND PATIENT TAKE 5MG OF WARFARIN TOMORORW, THEN TAKE 10MG DAILY. ENCOURAGED PATIENT TO EAT MORE GREENS TO BRING INR DOWN. PATIENT WILL F/U IN 6 WEEKS. FOR DETAILED INFORMATION-PLEASE REVIEW PROGRESS NOTE IN THE ASSESSMENTS AND ANTICOAGULATION CLINIC SECTION ANTICOAGULATION CLINIC IN PCI/CLINICAL REVIEW INDICATION INR RANGE THERAPY FOR DVT, PE, ATRIAL FIB; 2.0 - 3.0 PROPHYLAXIS FOR VTE THERAPY FOR MECHANICAL HEART 2.5 - 3.5 VALVE; PREVENTION OF SYSTEMIC EMBOLISM SECONDARY TO AMI PT/INR (in house) Reviewed date:09/03/2023 10:37:48 AM Interpretation: Performing Lab: Notes/Report: PT INR 3.4 current dose 10mg daily new dose 7.5mg Wed, 10mg AOD next check 2 weeks with [facility] hold for (days) Warfarin indication ideal INR 2-3 current weekly dose new weekly dose contact Glucose (In-House) Reviewed date:09/03/2023 10:37:36 AM Interpretation: Performing Lab: Notes/Report: blood glucose 168 74 - 106 mg/dL Glycohemoglobin A1c (in hous e) Reviewed date:09/03/2023 10:37:26 AM Interpretation: Performing Lab: Notes/Report: glycohemoglobin 8.2% 5 - 6.5 % P-Comprehensive Metabolic Pa guicho ([facility]) Reviewed date:09/06/2023 09:51:37 AM Interpretation:gluc 149, alk phos 29 Performing Lab: Notes/Report: Test performed by [facility] [address] [place] [address] , [address], [place] [address] Ketan Zamora MD, Group Counselor CLIA: [id number] Sodium 139 135-145 mEq/L Potassium 4.1 3.5-5.3 [...] 32 Performing Lab: Notes/Report: Test performed by [facility] [address] [place] [address] , [address], [place] [address] Ketan Zamora MD, Group Counselor CLIA: [id number] Cholesterol 103 <200 mg/dL Triglycerides 200 <150 [...] ATPIII guidelines LDL/HDL Ratio 1.0 <3.3 Ratio LDL Cholesterol Patient History Test Date: 09/03/2022 LDL Results: 40 Units: mg/dL % Change: +5% Test Date: 03/04/2023 LDL Results: 37 Units: mg/dL % Change: -7% Test Date: 09/03/2023 LDL Results: 31 Units: mg/dL % Change: -16% P-TSH reflex to FT4 Reviewed date:09/06/2023 09:51:37 AM Interpretation:Normal Performing Lab: Notes/Report: Test performed by [facility] [address] [place] [address] , [address], [place] [address] Ketan Zamora MD, Group Counselor CLIA: [id number] TSH reflex to FT4 4.73 0.43-5.25 mU/L P-Microalbumin/Creatinine, R andom Urine Sample Reviewed date:09/06/2023 09:51:38 AM Interpretation:Normal Performing Lab: Notes/Report: Test performed by [facility] [address] [place] [address] , [address], [place] [address] Ketan Zamora MD, Group Counselor CLIA: [id number] Albumin/Creatinine Ratio, Urine 7 0-30 ug/mg Microalbumin, Urine, Random 0.6 Creatinine, Urine 90.8 MEDICATIONS Medication SIG (Take, Route, Frequency, Duration) Notes Start Date End Date Status Fenofibrate Micronized 134 MG TAKE 1 CAPSULE BY MOUTH ONCE DAILY for 30 Active tiZANidine HCl 4 MG TAKE 1 TABLET BY MOUTH AT BEDTIME for 30 days Active HYDROcodone-Acetaminoph en 7.5-325 MG 1 tab(s) orally bid Active Potassium Chloride ER 10 MEQ TAKE 1 CAPSULE BY MOUTH ONCE DAILY for 30 Active Meclizine HCl 12.5 MG 1 tab(s) orally 3 times a day prn 06/28/2019 Active Warfarin Sodium 5 MG TAKE 2 TABLETS BY MOUTH ONCE DAILY for 30 days Active Astepro 205.5 MCG/SPRAY 1 spray(s) intranasally 2-4 times a day for 30 day(s) 11/22/2019 Active Glimepiride 2 MG 1 tab(s) orally 2 times a day for 30 days Active CPAP Supplies - as directed as directed 09/03/2023 Active Fluticasone Propionate 50 MCG/ACT 2 spray(s) intranasally once a day 07/05/2015 Active Farxiga 10 MG 1 tablet Orally Once a day for 30 day(s) Active Cetirizine HCl 10 MG 1 tab(s) orally onc e a day Active Albuterol Sulfate HFA 108 (90 Base) MCG/ACT 2 puff(s) inhaled every 6 hours for 30 day(s) Active Pregabalin 75 MG 1 cap(s) orally once daily Active Montelukast Sodium 10 MG 1 tablet Orally Once a day Active Symbicort 160-4.5 MCG/ACT INHALE 2 PUFFS BY MOUTH 2 TIMES A DAY (RINSE MOUTH AFTER USE) Active Magnesium Oxide 400 MG 1 tab(s) orally o nce a day Active Betamethasone Dipropionate Aug 0.05 % 1 adela applied topically 2 times a day 01/29/2022 Active Dicyclomine HCl 10 MG 1 cap(s) orally Tw o times a day 07/28/2022 Active DIABETIC SHOES DIRECTED DIRECTED 09/03/2022 Active Carvedilol 6.25 MG 1 tablet with food Orally Twice a day Active amLODIPine Besylate 5 MG 1 tab(s) orally once a day Active Chlorthalidone 25 MG 1 tab(s) orally onc e a day Active Cozaar 100 MG 1 tab(s) orally once a day Active Rosuvastatin Calcium 40 MG 1/2 tab(s) orally once a day per Dr Lovett 06/04/2020 Active metFORMIN HCl ER 500 MG 2 TABLETS Orally twice a day for 30 days Active Azelastine HCl 137 MCG/SPRAY 2 spray(s) intranasally 2 times a day Active Tamsulosin HCl 0.4 MG TAKE 1 CAPSULE BY MOUTH ONCE DAILY for 30 days Active Aspirin 81 81MG DIRECTED QD Active IMMUNIZATIONS Vaccine Route Administration Date Status Comme nts Prevnar (PCV13) IM Intramuscular 05/24/2018 Administered PNEUMOVAX 23 VACCINE IM Intramuscular 05/26/2019 Administe red Hepatitis A (adult) Unknown 05/01/2018 Administered Hepatitis A (adult) IM Intramuscular 11/06/2018 Administer ed Fluzone Quad (6months&older) IM Intramuscular 03/04/2023 Administered Fluzone High Dose (65yr and older) IM Intramuscular 02/19/2020 Administered Fluzone High Dose (65yr and older) IM Intramuscular 02/28/2021 Administered Fluzone High Dose (65yr and older) IM Intramuscular 03/06/2022 Administered Fluzone High Dose (65yr and older) IM Intramuscular 03/07/2024 Administered Flublok IM Intramuscular 05/24/2018 Administered SOCIAL HISTORY Sex Assigned At : Social History Observation Description Sex Assigned At Unknown PROBLEMS Problem Type ICD Code Onset Dates Problem Status W/U Status Risk SNOMED Code Notes Problem nursing home current use of anticoagulants with INR goal of 2.0-3.0 (Z79.01) Active confirmed 484175994 Problem Essential hypertension (I10) Active confirmed 46122330 Problem Pain in thoracic spine (M54.6) Active confirmed 112015126649661 Problem Seasonal allergies (J30.2) Active confirmed Seasonal a llergy (387303581) Problem Other chronic pain (G89.29) Active confirmed 20830858 Problem Hyperlipidemia associated with type 2 diabetes mellitus (E11.69) Active confirmed Problem Degenerative disc disease, cervical (M50.30) Active confirmed 99436111 Problem Myofasciitis (M60.9) Active confirmed 87242614 Problem Status cardiac pacemaker (Z95.0) Active confirmed 402183392 Problem Tinnitus of both ears (H93.13) Active confirmed 0071299585582 Problem Degenerative disc disease, thoracic (M51.34) Active confirmed 73077699 Problem Irritable bowel syndrome (K58.9) Active confirmed Irritable b owel syndrome (76485773) Problem Mild intermittent asthma without complication (J45.20) Active confirmed 412043702 Problem Diabetes mellitus with hyperglycemia (E11.65) Active confirmed Hyperglycemia d ue to type 2 diabetes mellitus (587216987283147) Problem GREG (obstructive sleep apnea) (G47.33) Active confirmed 42285017 Problem BMI 31.0-31.9,adult (Z68.31) Active confirmed Body mass index 30.00 to 34.99 (324210666270234) Problem Dyslipidemia (E78.5) Active confirmed 941954217 Problem Seasonal allergic rhinitis due to pollen (J30.1) Active confirmed 62627713 Problem Type 2 diabetes mellitus without complication, without long-term current use of insulin (E11.9) Active confirmed 711709713 Problem Bilateral carotid artery 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) Active confirmed 046666314 Problem Benign prostatic hyperplasia with lower urinary tract symptoms (N40.1) Active confirmed 512955650 Problem Diffuse idiopathic skeletal hyperostosis (M48.10) Active confirmed 48191770 Problem 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 [address] [place], [place] [id number] 06/15/2023 R Sp [place] [facility] [address] [facility] [address] [place], [place] [id number] 09/06/2023 Bernardino Lynn [facility] [address] [facility] [address] [place], [place] [id number] 09/28/2023 Santino Pisano [facility] [address] [facility] [address] [place], [place] [id number] 02/08/2024 Santino Pisano GREG (obstructive sle ep apnea) G47.33 [facility] [address] [facility] [address] [place], [place] [id number] 03/12/2024 R Sp Hernandezt [facility] [address] [place], [place] [id number] 03/07/2024 R Sp Hattie Hyperlipidemia associated with type 2 diabetes mellitus E11.69 ; Diabetes mellitus with hyperglycemia E11.65 ; Screening for prostate cancer Z12.5 ; Trismus R25.2 and Encounter for immunization Z23 [facility] [address] 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 Z79.899 ASSESSMENTS Encounter Date Diagnosis Assessment Notes Treatment Notes Treatment Clinical Notes 03/07/2024 Hyperlipidemia associated with type 2 diabetes mellitus (ICD-10 - E11.69) 03/07/2024 Diabetes mellitus with hyperglycemia (ICD-10 - E11.65) 02/08/2024 GREG (obstructive sleep apnea) (ICD-10 - G47.33) 09/03/2023 Essential hypertension (ICD-10 - I10) 09/03/2023 Type 2 diabetes mellitus without complication, without long-term current use of insulin (ICD-10 - E11.9) Not at goal today 09/03/2023 Dyslipidemia (ICD-10 - E78.5) 03/07/2024 Screening for prostate cancer (ICD-10 - Z12.5) 09/03/2023 GREG (obstructive sleep apnea) (ICD-10 - G47.33) 03/07/2024 Trismus (ICD-10 - R25.2) Continue f/u with ENT 09/03/2023 Chronic atrial fibrillation (ICD-10 - I48.20) 03/07/2024 Encounter for immunization (ICD-10 - Z23) 09/03/2023 lithographic stripper current us e of therapeutic drug (ICD-10 - Z79.899) PLAN OF TREATMENT Pending Test Test Name Order Date X ray : Foot, left 10/11/2020 Next Appt Details Provider Name:Richardson Dixon, 09/07/2024 09:15:00 AM, [address], [address], [place], [place], [id number], Insurance Providers Payer Name Payer Address Payer Phone Subscriber Number Group Number Insured Name Patient Relationship to Insured Coverage Start Date Coverage End Date MEDICARE PART B [address] [address] Stefanobreanna BERNA regan [id number] RAFAELA SKINNER Self - patient is the insured [employer] [address] [place] [address] [id number] RAFAELA SKINNER Self - patient is the insured MEDICATIONS ADMINISTERED Medication Instructions Date of Administration Dosage Notes Dexamethasone 05/06/2005 1 cm3 Dexamethasone 05/26/2007 1 mL Dexamethasone 03/07/2013 1 mL Dexamethasone 08/28/2014 1 mL MEDICAL (GENERAL) HISTORY Medical History History ICD Code CHRONIC AF - resolved 08/13 after ablatio n HYPERLIPIDEMIA Heart Cath 03/19 50% EF, 30-40% plaque l eft main coronary GREG Pacemaker DISH Colon polyps DDD of spine Obstructive Chronic Broncitis - Dr. Javy johnson Mild asthma - Dr. Hall Tamez's esophagus - EGD/ Dr. Velasquez - 06/01/16 HBP 20-49% stenosis, R and L carotid arterie s Type 2 DM Surgical History Surgery Date(Month/Year) Hiatal Hernia Repair Pacemaker 2003 LT Breast Mass Removal, Benign 12/2005 Colonoscopy, 6 Polyps Removed, Dr. Thomason ns 02/2012; 05/2016 EGD/ Dr. Velasquez/ Tamez's esophagus Cholecystectomy 03/2012 Cardiac Pacemaker Changed 12/08/2012 Pacemaker Replacement 03/23/2022 Colonoscopy/ Allran/ tubular adenoma/ 2 yr f/u 06/18/23 Hospitalization History Reason Date(Month/Year) Vertigo- [facility] ER 10/2016 Elevated Blood Sugar- [facility] ER 05/2020
--- NOTE | 2024-03-13 13:16 | A.OFFVIS_ITS ---
[facility] Disclaimer: The information contained in this section may have been updated after the patient was seen, as this information can be updated by other users. Medical History Cheek mass Hyperlipidemia Hypertension Atrial fibrillation History of COPD Asthma History of pacemaker COPD (chronic obstructive pulmonary disease) Obstructive sleep apnea syndrome Allergic rhinitis, unspecified Pulmonary emphysema Dyspnea on exertion Surgical History History of colonoscopy History of breast lump removal History of hernia surgery History of cholecystectomy Family History Other Asthma Diabetes Family history of pacemaker Heart attack Hypertension Lung cancer Social History Smoking Status: Former smoker alcohol intake: current substance use type: denies use current occupational status: other Travel in the last 8 weeks: None household members: spouse housing: apartment current occupational exposures/hazards: No caffeine: No PM Subjective & Objective Subjective Subjective:: Patient is a pleasant 73-year-old male who presents today for medication refill and follow-up. Today he rates his pain an 8 out of 10. He states he still continues to have the same aches and pains that he normally does. He denies any new injury. He is managed with [place] 7.5 mg 5 times a day and Lyrica 100 mg 3 times a day. He denies any side effects or any changes to his pharmacy his Nicolas has been reviewed and is appropriate. Review of Systems: General: No recent weight changes, no fever, no sleep disturbances Respiratory: No cough, no shortness of air, no recurring pulmonary infections Cardiovascular/peripheral vascular: No chest pain, no palpitations, no edema, no shortness of breath Gastrointestinal: No new onset incontinence, normal bowel movements reported Genitourinary: No new onset incontinence Musculoskeletal: Low back pain Psychiatric: [Normal mood/affect] Neurological: [Denies weakness in extremities], [denies balance issues] Pain at rest (0-10 scale): 8 Objective Objective:: Physical Exam: General: Alert and oriented x3, no acute distress, pleasant and cooperative Lungs: Respirations even and unlabored, symmetrical chest expansion Eyes: PERRL Musculoskeletal: Flexion and extension of lumbar [spine] somewhat guarded secondary to pain, [antalgic gait noted] Neurological: Speech clear, no gross sensory deficit Has patient had previous pain injection?: No Conservative treatment options previously tried: Home exercise plan Length of treatment: Longer than 12 weeks Meds Home Medications and Allergies Home Medications ?Medication ?Instructions ?Recorded ?Confirmed ?Type aspirin 81 mg tablet,delayed 81 mg PO DAILY Blood thinner 02/22/18 02/29/24 History release fenofibrate micronized 134 mg 145 mg PO DAILY Cholesterol 02/22/18 02/29/24 History capsule omeprazole 20 mg capsule,delayed 20 mg PO DAILY GERD 02/22/18 02/29/24 History release tamsulosin 0.4 mg capsule 0.4 mg PO HS bladder 02/22/18 02/29/24 History tizanidine 4 mg capsule 4 mg PO DAILY muscle relaxer 02/22/18 02/29/24 History chlorthalidone 25 mg tablet 25 mg PO DAILY HTN 03/11/20 02/29/24 History losartan 100 mg tablet 100 mg PO DAILY HTN 03/11/20 02/29/24 History potassium chloride 10 mEq 10 meq PO DAILY supp. 03/11/20 02/29/24 History capsule,extended release rosuvastatin 40 mg tablet 40 mg PO DAILY Cholesterol 06/11/20 02/29/24 History glimepiride 2 mg tablet 2 mg PO DAILY Diabetes 05/12/21 02/29/24 History warfarin 5 mg tablet See Rx Instructions .Route 12/11/21 02/29/24 History .COMPLEX Blood thinner fluticasone propionate 50 1 spray intranasal DAILY ALLERGIES 01/18/23 02/29/24 History mcg/actuation nasal spray,suspension (Flonase Allergy Relief) montelukast 10 mg tablet 10 mg PO DAILY ALLERGIES 01/18/23 02/29/24 History (Singulair) budesonide-formoterol HFA 160 2 puff inhalation BID 90 days 04/12/23 02/29/24 Rx mcg-4.5 mcg/actuation aerosol #10.2 grams inhaler (Symbicort) carvedilol 6.25 mg tablet 6.25 mg PO DIRECTED BLOOD 07/27/23 02/29/24 History PRESSURE albuterol sulfate 90 mcg/actuation See Rx Instructions .Route 09/28/23 02/29/24 Rx aerosol inhaler .COMPLEX #8.5 grams hydrocodone 7.5 mg-acetaminophen 1 tab PO 5XDAY #150 tabs 02/10/24 02/29/24 Rx 325 mg tablet pregabalin 100 mg capsule 100 mg PO TID Pain #90 caps 02/10/24 02/29/24 Rx amlodipine 10 mg tablet mg PO 02/21/24 02/29/24 History azelastine 137 mcg (0.1 %) nasal intranasal 02/21/24 02/29/24 History spray dapagliflozin propanediol 10 mg mg PO 02/21/24 02/29/24 History tablet (Farxiga) metformin 500 mg tablet,extended mg PO 02/29/24 02/29/24 History release 24 hr tizanidine 4 mg tablet 4 mg PO 02/29/24 02/29/24 History New Prescriptions to Start Prescriptions: Allergies Allergy/AdvReac Type Severity Reaction Status Date / Time levofloxacin Allergy Intermediate SWELLING Verified 02/29/24 09:50 AT SITE OF INJECTION Assessment and Plan *Assessment and plan (1) Lumbar radiculopathy: Status: Acute Category: Medical Code(s): M54.16 - Radiculopathy, lumbar region (2) Degenerative disc disease, lumbar: Status: Acute Qualifiers: Disc-related pain type: discogenic back pain and lower extremity pain Qualified Code(s): M51.362 - Other intervertebral disc degeneration, lumbar region with discogenic back pain and lower extremity pain Category: Medical Code(s): M51.36 - Other intervertebral disc degeneration, lumbar region Plan I will refill the patient's [place] and Lyrica and provide a 1 month supply of this medication. Patient will return to clinic in 1 month for reevaluation of symptoms and plan of care. Risks and benefits of the medication have been explained in detail to the patient. The patient does understand the risk of dependence on the medication when given over a prolonged period. Patient has been advised of risks of oversedation with the prescribed medication. Narcan has been offered to the paitent in the event of oversedation. Patient has been advised that a family member should also be educated regarding administration of Narcan. The patient has been advised to consult with his/her primary care provider and pharmacist regarding drug-drug interaction of medications currently prescribed. Patient has been prescribed a controlled substance after being counseled on the medication, medication safety, and possible side effects. Opioid contract was reviewed and signed by the patient, and that they have agreed to all of the terms set forth by our compliance program. Patient has been instructed to contact the clinic with any concerns before the next appointment. Dr. Martel has reviewed this note and agrees with this plan of care. This note was dictated using voice recognition software and make contain errors or omissions.
[2024-03-13 13:46] VITALS: BP 136/56; PULSE 70; RESP 18; O2SAT 96; BMI 29.9
== END 2024-03-13 23:59 | disposition home or self-care (01) ==
PROVIDERS: PCP Family Medicine; Visit Provider Nurse Practitioner Family
DX: M54.16 Radiculopathy, lumbar region (principal); M51.362 Other intervertebral disc degeneration, lumbar region with discogenic back pain and lower extremity pain; Z87.891 Personal history of nicotine dependence; Z79.899 Other long term (current) drug therapy
CPT/HCPCS: 99212; G0463

== ENCOUNTER 2024-04-03 08:52 | Outpatient (CLI) | payer MEDICARE, BC, SELFPAY ==
[2024-04-03 13:58] LABS: PHA INR Fingerstick 3.2 (0.9-1.1)
== END 2024-04-03 14:06 ==
LOC: ACC 08:54
PROVIDERS: PCP Family Medicine; Visit Provider Family Medicine
DX: Z79.01 Long term (current) use of anticoagulants (principal)
CPT/HCPCS: 85610; 99211; G0463

== ENCOUNTER 2024-04-12 08:40 | Outpatient (POV) | payer MEDICARE, BC, SELFPAY ==
--- NOTE | 2024-04-12 08:45 | A.OFFVIS_ITS ---
[facility] Disclaimer: The information contained in this section may have been updated after the patient was seen, as this information can be updated by other users. Medical History (Updated 04/03/24 @ 10:00 by Kaylan Ruiz APRN) Trismus Cheek mass Hyperlipidemia Hypertension Atrial fibrillation History of COPD Asthma History of pacemaker COPD (chronic obstructive pulmonary disease) Obstructive sleep apnea syndrome Allergic rhinitis, unspecified Pulmonary emphysema Dyspnea on exertion Surgical History History of colonoscopy History of breast lump removal History of hernia surgery History of cholecystectomy Family History Other Asthma Diabetes Family history of pacemaker Heart attack Hypertension Lung cancer Social History Smoking Status: Former smoker alcohol intake: current substance use type: denies use current occupational status: other Travel in the last 8 weeks: None household members: spouse housing: apartment current occupational exposures/hazards: No caffeine: No PM Subjective & Objective Subjective Subjective:: Patient is a pleasant 73-year-old male who presents today for medication refill and 1 month follow-up. Today he rates his pain an 8 out of 10. He denies any new falls or changes from her last appointment. He is managed with [place] 7.5 mg 5 times a day and Lyrica 100 mg 3 times a day. He denies any side effects. His Nicolas has been reviewed and is appropriate. Review of Systems: General: No recent weight changes, no fever, no sleep disturbances Respiratory: No cough, no shortness of air, no recurring pulmonary infections Cardiovascular/peripheral vascular: No chest pain, no palpitations, no edema, no shortness of breath Gastrointestinal: No new onset incontinence, normal bowel movements reported Genitourinary: No new onset incontinence Musculoskeletal: Low back pain Psychiatric: [Normal mood/affect] Neurological: [Denies weakness in extremities], [denies balance issues] Pain at rest (0-10 scale): 8 Objective Objective:: Physical Exam: General: Alert and oriented x3, no acute distress, pleasant and cooperative Lungs: Respirations even and unlabored, symmetrical chest expansion Eyes: PERRL Musculoskeletal: Flexion and extension of lumbar [spine] somewhat guarded secondary to pain, [antalgic gait noted] Neurological: Speech clear, no gross sensory deficit Has patient had previous pain injection?: No Conservative treatment options previously tried: Prescription medications Length of treatment: Longer than 12 weeks Meds Home Medications and Allergies Home Medications ?Medication ?Instructions ?Recorded ?Confirmed ?Type aspirin 81 mg tablet,delayed 81 mg PO DAILY Blood thinner 02/22/18 04/03/24 History release fenofibrate micronized 134 mg 145 mg PO DAILY Cholesterol 02/22/18 04/03/24 History capsule omeprazole 20 mg capsule,delayed 20 mg PO DAILY GERD 02/22/18 04/03/24 History release tamsulosin 0.4 mg capsule 0.4 mg PO HS bladder 02/22/18 04/03/24 History tizanidine 4 mg capsule 4 mg PO DAILY muscle relaxer 02/22/18 04/03/24 History chlorthalidone 25 mg tablet 25 mg PO DAILY HTN 03/11/20 04/03/24 History losartan 100 mg tablet 100 mg PO DAILY HTN 03/11/20 04/03/24 History potassium chloride 10 mEq 10 meq PO DAILY supp. 03/11/20 04/03/24 History capsule,extended release rosuvastatin 40 mg tablet 40 mg PO DAILY Cholesterol 06/11/20 04/03/24 History glimepiride 2 mg tablet 2 mg PO DAILY Diabetes 05/12/21 04/03/24 History warfarin 5 mg tablet See Rx Instructions .Route 12/11/21 04/03/24 History .COMPLEX Blood thinner fluticasone propionate 50 1 spray intranasal DAILY ALLERGIES 01/18/23 04/03/24 History mcg/actuation nasal spray,suspension (Flonase Allergy Relief) montelukast 10 mg tablet 10 mg PO DAILY ALLERGIES 01/18/23 04/03/24 History (Singulair) budesonide-formoterol HFA 160 2 puff inhalation BID 90 days 04/12/23 04/03/24 Rx mcg-4.5 mcg/actuation aerosol #10.2 grams inhaler (Symbicort) carvedilol 6.25 mg tablet 6.25 mg PO DIRECTED BLOOD 07/27/23 04/03/24 History PRESSURE albuterol sulfate 90 mcg/actuation See Rx Instructions .Route 09/28/23 04/03/24 Rx aerosol inhaler .COMPLEX #8.5 grams amlodipine 10 mg tablet 10 mg PO DIRECTED BLOOD PRESSURE 02/21/24 04/03/24 History azelastine 137 mcg (0.1 %) nasal 1 spray intranasal DIRECTED . 02/21/24 04/03/24 History spray dapagliflozin propanediol 10 mg 10 mg PO DIRECTED Diabetes 02/21/24 04/03/24 History tablet (Farxiga) metformin 500 mg tablet,extended 500 mg PO DAILY Diabetes 02/29/24 04/03/24 History release 24 hr tizanidine 4 mg tablet 4 mg PO DIRECTED Pain 02/29/24 04/03/24 History hydrocodone 7.5 mg-acetaminophen 1 tab PO 5XDAY #150 tabs 04/12/24 Rx 325 mg tablet pregabalin 100 mg capsule 100 mg PO TID Pain #90 caps 04/12/24 Rx New Prescriptions to Start Prescriptions: hydrocodone-acetaminophen Wang,Ana M A pregabalin Wang,Ana M A Allergies Allergy/AdvReac Type Severity Reaction Status Date / Time levofloxacin Allergy Intermediate SWELLING Verified 04/03/24 09:42 AT SITE OF INJECTION Assessment and Plan *Assessment and plan (1) Lumbar radiculopathy: Status: Acute Category: Medical Code(s): M54.16 - Radiculopathy, lumbar region (2) Degenerative disc disease, lumbar: Status: Acute Qualifiers: Disc-related pain type: discogenic back pain and lower extremity pain Qualified Code(s): M51.362 - Other intervertebral disc degeneration, lumbar region with discogenic back pain and lower extremity pain Category: Medical Code(s): M51.36 - Other intervertebral disc degeneration, lumbar region Plan We will refill the patient's [place] and provide a 1 month supply of this medication. Patient will return to clinic in 1 month for follow-up. Risks and benefits of the medication have been explained in detail to the patient. The patient does understand the risk of dependence on the medication when given over a prolonged period. Patient has been advised of risks of oversedation with the prescribed medication. Narcan has been offered to the paitent in the event of oversedation. Patient has been advised that a family member should also be educated regarding administration of Narcan. The patient has been advised to consult with his/her primary care provider and pharmacist regarding drug-drug interaction of medications currently prescribed. Patient has been prescribed a controlled substance after being counseled on the medication, medication safety, and possible side effects. Opioid contract was reviewed and signed by the patient, and that they have agreed to all of the terms set forth by our compliance program. Patient has been instructed to contact the clinic with any concerns before the next appointment. Dr. Martel has reviewed this note and agrees with this plan of care. This note was dictated using voice recognition software and make contain errors or omissions.
[2024-04-12 09:42] VITALS: BP 106/59; PULSE 70; RESP 16; O2SAT 98; BMI 29.9
== END 2024-04-12 23:59 | disposition home or self-care (01) ==
PROVIDERS: PCP Family Medicine; Visit Provider Nurse Practitioner Family
DX: M51.16 Intervertebral disc disorders with radiculopathy, lumbar region (principal); Z79.899 Other long term (current) drug therapy
CPT/HCPCS: 99212; G0463

== ENCOUNTER 2024-05-04 08:18 | Outpatient (CLI) | payer MEDICARE, BC, SELFPAY ==
[2024-05-04 10:51] LABS: PHA INR Fingerstick 3.3 (0.9-1.1)
== END 2024-05-04 11:12 ==
LOC: ACC 08:20
PROVIDERS: PCP Family Medicine; Visit Provider Family Medicine
DX: Z79.01 Long term (current) use of anticoagulants (principal); I48.91 Unspecified atrial fibrillation
CPT/HCPCS: 85610; 99211; G0463

== ENCOUNTER 2024-05-11 08:34 | Outpatient (POV) | payer MEDICARE, BC, SELFPAY ==
--- NOTE | 2024-05-11 08:58 | A.OFFVIS_ITS ---
[facility] Disclaimer: The information contained in this section may have been updated after the patient was seen, as this information can be updated by other users. Medical History (Updated 04/03/24 @ 10:00 by Kaylan Ruiz APRN) Trismus Cheek mass Hyperlipidemia Hypertension Atrial fibrillation History of COPD Asthma History of pacemaker COPD (chronic obstructive pulmonary disease) Obstructive sleep apnea syndrome Allergic rhinitis, unspecified Pulmonary emphysema Dyspnea on exertion Surgical History History of colonoscopy History of breast lump removal History of hernia surgery History of cholecystectomy Family History Other Asthma Diabetes Family history of pacemaker Heart attack Hypertension Lung cancer Social History Smoking Status: Former smoker alcohol intake: current substance use type: denies use current occupational status: other Travel in the last 8 weeks: None household members: spouse housing: apartment current occupational exposures/hazards: No caffeine: No Have you lived/traveled outside [place] in past 30 days?: No Contact w/someone who lives/traveled outside [place] past 30 days?: No Exposure to someone with infectious disease in past 14 days?: No Do you have a fever (greater than 100.4 F or 38 C)?: No Have you tested positive for COVID-19: No Exposed to someone with COVID-19 in past 14 days?: No Do you have a sore throat?: No Do you have a cough?: No Do you have any weakness?: No Do you have any diarrhea?: No Are you experiencing any unusual bleeding?: No Do you have any muscle aches/pain?: No Do you have any abdominal pain?: No Are you experiencing loss of taste or smell?: No PM Subjective & Objective Subjective Subjective:: Patient is a pleasant 73-year-old male who presents today for medication refill. Today he rates his pain an 8 out of 10. He denies any new injuries. He is managed with [place] 7.5 mg 5 times a day and Lyrica 100 mg 3 times a day. He denies any side effects. His Nicolas has been reviewed and is appropriate. Review of Systems: General: No recent weight changes, no fever, no sleep disturbances Respiratory: No cough, no shortness of air, no recurring pulmonary infections Cardiovascular/peripheral vascular: No chest pain, no palpitations, no edema, no shortness of breath Gastrointestinal: No new onset incontinence, normal bowel movements reported Genitourinary: No new onset incontinence Musculoskeletal: Low back pain Psychiatric: [Normal mood/affect] Neurological: [Denies weakness in extremities], [denies balance issues] Pain at rest (0-10 scale): 8 Objective Objective:: Physical Exam: General: Alert and oriented x3, no acute distress, pleasant and cooperative Lungs: Respirations even and unlabored, symmetrical chest expansion Eyes: PERRL Musculoskeletal: Flexion and extension of lumbar [spine] somewhat guarded secondary to pain, [antalgic gait noted] Neurological: Speech clear, no gross sensory deficit Has patient had previous pain injection?: No Conservative treatment options previously tried: Prescription medications Length of treatment: Longer than 12 weeks Meds Home Medications and Allergies Home Medications ?Medication ?Instructions ?Recorded ?Confirmed ?Type aspirin 81 mg tablet,delayed 81 mg PO DAILY Blood thinner 02/22/18 04/12/24 History release fenofibrate micronized 134 mg 145 mg PO DAILY Cholesterol 02/22/18 04/12/24 History capsule omeprazole 20 mg capsule,delayed 20 mg PO DAILY GERD 02/22/18 04/12/24 History release tamsulosin 0.4 mg capsule 0.4 mg PO HS bladder 02/22/18 04/12/24 History tizanidine 4 mg capsule 4 mg PO DAILY muscle relaxer 02/22/18 04/12/24 History chlorthalidone 25 mg tablet 25 mg PO DAILY HTN 03/11/20 04/12/24 History losartan 100 mg tablet 100 mg PO DAILY HTN 03/11/20 04/12/24 History potassium chloride 10 mEq 10 meq PO DAILY supp. 03/11/20 04/12/24 History capsule,extended release rosuvastatin 40 mg tablet 40 mg PO DAILY Cholesterol 06/11/20 04/12/24 History glimepiride 2 mg tablet 2 mg PO DAILY Diabetes 05/12/21 04/12/24 History warfarin 5 mg tablet See Rx Instructions .Route 12/11/21 04/12/24 History .COMPLEX Blood thinner fluticasone propionate 50 1 spray intranasal DAILY ALLERGIES 01/18/23 04/12/24 History mcg/actuation nasal spray,suspension (Flonase Allergy Relief) montelukast 10 mg tablet 10 mg PO DAILY ALLERGIES 01/18/23 04/12/24 History (Singulair) budesonide-formoterol HFA 160 2 puff inhalation BID 90 days 04/12/23 04/12/24 Rx mcg-4.5 mcg/actuation aerosol #10.2 grams inhaler (Symbicort) carvedilol 6.25 mg tablet 6.25 mg PO DIRECTED BLOOD 07/27/23 04/12/24 History PRESSURE albuterol sulfate 90 mcg/actuation See Rx Instructions .Route 09/28/23 04/12/24 Rx aerosol inhaler .COMPLEX #8.5 grams amlodipine 10 mg tablet 10 mg PO DIRECTED BLOOD PRESSURE 02/21/24 04/12/24 History azelastine 137 mcg (0.1 %) nasal 1 spray intranasal DIRECTED . 02/21/24 04/12/24 History spray dapagliflozin propanediol 10 mg 10 mg PO DIRECTED Diabetes 02/21/24 04/12/24 History tablet (Farxiga) metformin 500 mg tablet,extended 500 mg PO DAILY Diabetes 02/29/24 04/12/24 History release 24 hr tizanidine 4 mg tablet 4 mg PO DIRECTED Pain 02/29/24 04/12/24 History hydrocodone 7.5 mg-acetaminophen 1 tab PO 5XDAY #150 tabs 04/12/24 Rx 325 mg tablet pregabalin 100 mg capsule 100 mg PO TID Pain #90 caps 04/12/24 Rx New Prescriptions to Start Prescriptions: Allergies Allergy/AdvReac Type Severity Reaction Status Date / Time levofloxacin Allergy Intermediate SWELLING Verified 04/03/24 09:42 AT SITE OF INJECTION Assessment and Plan *Assessment and plan (1) Lumbar radiculopathy: Status: Acute Category: Medical Code(s): M54.16 - Radiculopathy, lumbar region (2) Degenerative disc disease, lumbar: Status: Acute Qualifiers: Disc-related pain type: discogenic back pain and lower extremity pain Qualified Code(s): M51.362 - Other intervertebral disc degeneration, lumbar region with discogenic back pain and lower extremity pain Category: Medical Code(s): M51.369 - Other intervertebral disc degeneration, lumbar region without mention of lumbar back pain or lower extremity pain Plan I will refill the patient's [place] and Lyrica and provide a 1 month supply of this medication. Patient will return to clinic in 1 month for reevaluation of symptoms and plan of care. Risks and benefits of the medication have been explained in detail to the patient. The patient does understand the risk of dependence on the medication when given over a prolonged period. Patient has been advised of risks of oversedation with the prescribed medication. Narcan has been offered to the paitent in the event of oversedation. Patient has been advised that a family member should also be educated regarding administration of Narcan. The patient has been advised to consult with his/her primary care provider and pharmacist regarding drug-drug interaction of medications currently prescribed. Patient has been prescribed a controlled substance after being counseled on the medication, medication safety, and possible side effects. Opioid contract was reviewed and signed by the patient, and that they have agreed to all of the terms set forth by our compliance program. A UDS is needed to verify patient's compliance with our office pain contract. This is ordered based off specific treatments related to chronic pain with the potential to abuse certain medications. Patient has been instructed to contact the clinic with any concerns before the next appointment. Dr. Martel has reviewed this note and agrees with this plan of care. This note was dictated using voice recognition software and make contain errors or omissions.
[2024-05-11 09:54] VITALS: BP 122/55; PULSE 78; RESP 16; O2SAT 96; BMI 29.9
== END 2024-05-11 23:59 | disposition home or self-care (01) ==
PROVIDERS: PCP Family Medicine; Visit Provider Nurse Practitioner Family
DX: M51.16 Intervertebral disc disorders with radiculopathy, lumbar region (principal); Z87.891 Personal history of nicotine dependence; Z79.899 Other long term (current) drug therapy
CPT/HCPCS: 99212; G0463

== ENCOUNTER 2024-05-19 08:20 | Outpatient (CLI) | payer MEDICARE, BC, SELFPAY | END 2024-05-19 09:00 | LOC: ACC 08:22 | PROVIDERS: PCP Family Medicine; Visit Provider Family Medicine | DX: Z79.01 Long term (current) use of anticoagulants (principal); I48.91 Unspecified atrial fibrillation | CPT/HCPCS: 85610; 99211; G0463 ==

== ENCOUNTER 2024-06-12 08:45 | Outpatient (POV) | payer MEDICARE, BC, SELFPAY ==
--- NOTE | 2024-06-12 08:59 | A.OFFVIS_ITS ---
[facility] Disclaimer: The information contained in this section may have been updated after the patient was seen, as this information can be updated by other users. Medical History (Updated 04/03/24 @ 10:00 by Kaylan Ruiz APRN) Trismus Cheek mass Hyperlipidemia Hypertension Atrial fibrillation History of COPD Asthma History of pacemaker COPD (chronic obstructive pulmonary disease) Obstructive sleep apnea syndrome Allergic rhinitis, unspecified Pulmonary emphysema Dyspnea on exertion Surgical History History of colonoscopy History of breast lump removal History of hernia surgery History of cholecystectomy Family History Other Asthma Diabetes Family history of pacemaker Heart attack Hypertension Lung cancer Social History Smoking Status: Former smoker alcohol intake: current substance use type: denies use current occupational status: other Travel in the last 8 weeks: None household members: spouse housing: apartment current occupational exposures/hazards: No caffeine: No PM Subjective & Objective Subjective Subjective:: Patient is a pleasant 73-year-old male who presents today for medication refill. He rates his pain today an 8 out of 10. He denies any changes from her last appointment. He is still doing well with his [place] 7.5 mg 5 times a day and Lyrica 100 mg 3 times a day. His Nicolas has been reviewed and is appropriate. Review of Systems: General: No recent weight changes, no fever, no sleep disturbances Respiratory: No cough, no shortness of air, no recurring pulmonary infections Cardiovascular/peripheral vascular: No chest pain, no palpitations, no edema, no shortness of breath Gastrointestinal: No new onset incontinence, normal bowel movements reported Genitourinary: No new onset incontinence Musculoskeletal: Low back pain Psychiatric: [Normal mood/affect] Neurological: [Denies weakness in extremities], [denies balance issues] Pain at rest (0-10 scale): 8 Objective Objective:: Physical Exam: General: Alert and oriented x3, no acute distress, pleasant and cooperative Lungs: Respirations even and unlabored, symmetrical chest expansion Eyes: PERRL Musculoskeletal: Flexion and extension of lumbar [spine] somewhat guarded secondary to pain, [antalgic gait noted] Neurological: Speech clear, no gross sensory deficit Has patient had previous pain injection?: No Conservative treatment options previously tried: Prescription medications Length of treatment: Longer than 12 Meds Home Medications and Allergies Home Medications ?Medication ?Instructions ?Recorded ?Confirmed ?Type aspirin 81 mg tablet,delayed 81 mg PO DAILY Blood thinner 02/22/18 05/11/24 History release fenofibrate micronized 134 mg 145 mg PO DAILY Cholesterol 02/22/18 05/11/24 History capsule omeprazole 20 mg capsule,delayed 20 mg PO DAILY GERD 02/22/18 05/11/24 History release tamsulosin 0.4 mg capsule 0.4 mg PO HS bladder 02/22/18 05/11/24 History tizanidine 4 mg capsule 4 mg PO DAILY muscle relaxer 02/22/18 05/11/24 History chlorthalidone 25 mg tablet 25 mg PO DAILY HTN 03/11/20 05/11/24 History losartan 100 mg tablet 100 mg PO DAILY HTN 03/11/20 05/11/24 History potassium chloride 10 mEq 10 meq PO DAILY supp. 03/11/20 05/11/24 History capsule,extended release rosuvastatin 40 mg tablet 40 mg PO DAILY Cholesterol 06/11/20 05/11/24 History glimepiride 2 mg tablet 2 mg PO DAILY Diabetes 05/12/21 05/11/24 History warfarin 5 mg tablet See Rx Instructions .Route 12/11/21 05/11/24 History .COMPLEX Blood thinner fluticasone propionate 50 1 spray intranasal DAILY ALLERGIES 01/18/23 05/11/24 History mcg/actuation nasal spray,suspension (Flonase Allergy Relief) montelukast 10 mg tablet 10 mg PO DAILY ALLERGIES 01/18/23 05/11/24 History (Singulair) budesonide-formoterol HFA 160 2 puff inhalation BID 90 days 04/12/23 05/11/24 Rx mcg-4.5 mcg/actuation aerosol #10.2 grams inhaler (Symbicort) carvedilol 6.25 mg tablet 6.25 mg PO DIRECTED BLOOD 07/27/23 05/11/24 History PRESSURE albuterol sulfate 90 mcg/actuation See Rx Instructions .Route 09/28/23 05/11/24 Rx aerosol inhaler .COMPLEX #8.5 grams amlodipine 10 mg tablet 10 mg PO DIRECTED BLOOD PRESSURE 02/21/24 05/11/24 History azelastine 137 mcg (0.1 %) nasal 1 spray intranasal DIRECTED . 02/21/24 05/11/24 History spray dapagliflozin propanediol 10 mg 10 mg PO DIRECTED Diabetes 02/21/24 05/11/24 History tablet (Farxiga) metformin 500 mg tablet,extended 500 mg PO DAILY Diabetes 02/29/24 05/11/24 Hist ory release 24 hr tizanidine 4 mg tablet 4 mg PO DIRECTED Pain 02/29/24 05/11/24 History hydrocodone 7.5 mg-acetaminophen 1 tab PO 5XDAY #150 tabs 05/11/24 Rx 325 mg tablet pregabalin 100 mg capsule 100 mg PO TID Pain #90 caps 05/11/24 Rx New Prescriptions to Start Prescriptions: Allergies Allergy/AdvReac Type Severity Reaction Status Date / Time levofloxacin Allergy Intermediate SWELLING Verified 04/03/24 09:42 AT SITE OF INJECTION Assessment and Plan *Assessment and plan (1) Lumbar radiculopathy: Status: Acute Category: Medical Code(s): M54.16 - Radiculopathy, lumbar region (2) Degenerative disc disease, lumbar: Status: Acute Qualifiers: Disc-related pain type: discogenic back pain and lower extremity pain Qualified Code(s): M51.362 - Other intervertebral disc degeneration, lumbar region with discogenic back pain and lower extremity pain Category: Medical Code(s): M51.369 - Other intervertebral disc degeneration, lumbar region without mention of lumbar back pain or lower extremity pain Plan I will refill the patient's [place] and Lyrica make sure he does have refills. Patient will return to clinic in 1 month. Risks and benefits of the medication have been explained in detail to the patient. The patient does understand the risk of dependence on the medication when given over a prolonged period. Patient has been advised of risks of oversedation with the prescribed medication. Narcan has been offered to the paitent in the event of oversedation. Patient has been advised that a family member should also be educated regarding administration of Narcan. The patient has been advised to consult with his/her primary care provider and pharmacist regarding drug-drug interaction of medications currently prescribed. Patient has been prescribed a controlled substance after being counseled on the medication, medication safety, and possible side effects. Opioid contract was reviewed and signed by the patient, and that they have agreed to all of the terms set forth by our compliance program. A UDS is needed to verify patient's compliance with our office pain contract. This is ordered based off specific treatments related to chronic pain with the potential to abuse certain medications. Patient has been instructed to contact the clinic with any concerns before the next appointment. Dr. Martel has reviewed this note and agrees with this plan of care. This note was dictated using voice recognition software and make contain errors or omissions.
[2024-06-12 09:39] VITALS: BP 137/75; PULSE 115; RESP 18; O2SAT 96; BMI 29.9
== END 2024-06-12 23:59 | disposition home or self-care (01) ==
PROVIDERS: PCP Family Medicine; Visit Provider Nurse Practitioner Family
DX: M51.16 Intervertebral disc disorders with radiculopathy, lumbar region (principal); Z87.891 Personal history of nicotine dependence; Z79.899 Other long term (current) drug therapy
CPT/HCPCS: 99212; G0463

== ENCOUNTER 2024-06-16 08:19 | Outpatient (CLI) | payer MEDICARE, BC, SELFPAY ==
[2024-06-16 13:43] LABS: PHA INR Fingerstick 2.5 (0.9-1.1)
== END 2024-06-16 13:44 ==
LOC: ACC 08:21
PROVIDERS: PCP Family Medicine; Visit Provider Family Medicine
DX: Z79.01 Long term (current) use of anticoagulants (principal); I48.91 Unspecified atrial fibrillation
CPT/HCPCS: 85610; 99211; G0463

== ENCOUNTER 2024-07-10 08:50 | Outpatient (POV) | payer MEDICARE, BC, SELFPAY ==
[2024-07-10 08:56] VITALS: BP 119/48; PULSE 70; RESP 18; O2SAT 97; BMI 29.9
--- NOTE | 2024-07-10 09:16 | A.OFFVIS_ITS ---
[facility] Disclaimer: The information contained in this section may have been updated after the patient was seen, as this information can be updated by other users. Medical History (Updated 04/03/24 @ 10:00 by Kaylan Ruiz APRN) Trismus Cheek mass Hyperlipidemia Hypertension Atrial fibrillation History of COPD Asthma History of pacemaker COPD (chronic obstructive pulmonary disease) Obstructive sleep apnea syndrome Allergic rhinitis, unspecified Pulmonary emphysema Dyspnea on exertion Surgical History History of colonoscopy History of breast lump removal History of hernia surgery History of cholecystectomy Family History Other Asthma Diabetes Family history of pacemaker Heart attack Hypertension Lung cancer Social History Smoking Status: Former smoker alcohol intake: current substance use type: denies use current occupational status: retired Travel in the last 8 weeks: None household members: spouse housing: apartment current occupational exposures/hazards: No caffeine: No PM Subjective & Objective Subjective Subjective:: Patient is pleasant 73-year-old male who presents today for his monthly medication refill. Today he rates his pain an 8 out of 10. He denies any new trauma or injury from her last appointment. He states overall he is doing well and maintaining with the current medicines. He is currently managed with [place] 7.5 mg 5 times a day and Lyrica 100 mg 3 times daily. He denies any side effects. His Nicolas has been reviewed and is appropriate. Review of Systems: General: No recent weight changes, no fever, no sleep disturbances Respiratory: No cough, no shortness of air, no recurring pulmonary infections Cardiovascular/peripheral vascular: No chest pain, no palpitations, no edema, no shortness of breath Gastrointestinal: No new onset incontinence, normal bowel movements reported Genitourinary: No new onset incontinence Musculoskeletal: Low back pain Psychiatric: [Normal mood/affect] Neurological: [Denies weakness in extremities], [denies balance issues] Pain at rest (0-10 scale): 8 Objective Objective:: Physical Exam: General: Alert and oriented x3, no acute distress, pleasant and cooperative Lungs: Respirations even and unlabored, symmetrical chest expansion Eyes: PERRL Musculoskeletal: Flexion and extension of lumbar [spine] somewhat guarded secondary to pain, [antalgic gait noted] Neurological: Speech clear, no gross sensory deficit Has patient had previous pain injection?: No Conservative treatment options previously tried: Prescription medications Length of treatment: Longer than 12 weeks Meds Home Medications and Allergies Home Medications ?Medication ?Instructions ?Recorded ?Confirmed ?Type aspirin 81 mg tablet,delayed 81 mg PO DAILY Blood thinner 02/22/18 06/12/24 History release fenofibrate micronized 134 mg 145 mg PO DAILY Cholesterol 02/22/18 06/12/24 History capsule omeprazole 20 mg capsule,delayed 20 mg PO DAILY GERD 02/22/18 06/12/24 History release tamsulosin 0.4 mg capsule 0.4 mg PO HS bladder 02/22/18 06/12/24 History tizanidine 4 mg capsule 4 mg PO DAILY muscle relaxer 02/22/18 06/12/24 History chlorthalidone 25 mg tablet 25 mg PO DAILY HTN 03/11/20 06/12/24 History losartan 100 mg tablet 100 mg PO DAILY HTN 03/11/20 06/12/24 History potassium chloride 10 mEq 10 meq PO DAILY supp. 03/11/20 06/12/24 History capsule,extended release rosuvastatin 40 mg tablet 40 mg PO DAILY Cholesterol 06/11/20 06/12/24 History glimepiride 2 mg tablet 2 mg PO DAILY Diabetes 05/12/21 06/12/24 History warfarin 5 mg tablet See Rx Instructions .Route 12/11/21 06/12/24 History .COMPLEX Blood thinner fluticasone propionate 50 1 spray intranasal DAILY ALLERGIES 01/18/23 06/12/24 History mcg/actuation nasal spray,suspension (Flonase Allergy Relief) montelukast 10 mg tablet 10 mg PO DAILY ALLERGIES 01/18/23 06/12/24 History (Singulair) budesonide-formoterol HFA 160 2 puff inhalation BID 90 days 04/12/23 06/12/24 Rx mcg-4.5 mcg/actuation aerosol #10.2 grams inhaler (Symbicort) carvedilol 6.25 mg tablet 6.25 mg PO DIRECTED BLOOD 07/27/23 06/12/24 History PRESSURE albuterol sulfate 90 mcg/actuation See Rx Instructions .Route 09/28/23 06/12/24 Rx aerosol inhaler .COMPLEX #8.5 grams amlodipine 10 mg tablet 10 mg PO DIRECTED BLOOD PRESSURE 02/21/24 06/12/24 History azelastine 137 mcg (0.1 %) nasal 1 spray intranasal DIRECTED . 02/21/24 06/12/24 History spray dapagliflozin propanediol 10 mg 10 mg PO DIRECTED Diabetes 02/21/24 06/12/24 History tablet (Farxiga) metformin 500 mg tablet,extended 500 mg PO DAILY Diabetes 02/29/24 06/12/24 History release 24 hr tizanidine 4 mg tablet 4 mg PO DIRECTED Pain 02/29/24 06/12/24 History pregabalin 100 mg capsule 100 mg PO TID Pain #90 caps 05/11/24 06/12/24 Rx hydrocodone 7.5 mg-acetaminophen 1 tab PO 5XDAY #150 tabs 06/12/24 Rx 325 mg tablet New Prescriptions to Start Prescriptions: Allergies Allergy/AdvReac Type Severity Reaction Status Date / Time levofloxacin Allergy Intermediate SWELLING Verified 04/03/24 09:42 AT SITE OF INJECTION Assessment and Plan *Assessment and plan (1) Lumbar radiculopathy: Status: Acute Category: Medical Code(s): M54.16 - Radiculopathy, lumbar region (2) Degenerative disc disease, lumbar: Status: Acute Qualifiers: Disc-related pain type: discogenic back pain and lower extremity pain Qualified Code(s): M51.362 - Other intervertebral disc degeneration, lumbar region with discogenic back pain and lower extremity pain Category: Medical Code(s): M51.369 - Other intervertebral disc degeneration, lumbar region without mention of lumbar back pain or lower extremity pain Plan I will refill his [place] and pregabalin and provide a 1 month supply of this medication. Patient will return to clinic in 1 month. Risks and benefits of the medication have been explained in detail to the patient. The patient does understand the risk of dependence on the medication when given over a prolonged period. Patient has been advised of risks of oversedation with the prescribed medication. Narcan has been offered to the paitent in the event of oversedation. Patient has been advised that a family member should also be educated regarding administration of Narcan. The patient has been advised to consult with his/her primary care provider and pharmacist regarding drug-drug interaction of medications currently prescribed. Patient has been prescribed a controlled substance after being counseled on the medication, medication safety, and possible side effects. Opioid contract was reviewed and signed by the patient, and that they have agreed to all of the terms set forth by our compliance program. A UDS is needed to verify patient's compliance with our office pain contract. This is ordered based off specific treatments related to chronic pain with the potential to abuse certain medications. Patient has been instructed to contact the clinic with any concerns before the next appointment. Dr. Martel has reviewed this note and agrees with this plan of care. This note was dictated using voice recognition software and make contain errors or omissions.
== END 2024-07-10 23:59 | disposition home or self-care (01) ==
PROVIDERS: PCP Family Medicine; Visit Provider Nurse Practitioner Family
DX: M51.16 Intervertebral disc disorders with radiculopathy, lumbar region (principal); Z87.891 Personal history of nicotine dependence; Z79.899 Other long term (current) drug therapy
CPT/HCPCS: 99212; G0463

== ENCOUNTER 2024-07-28 08:47 | Outpatient (CLI) | payer MEDICARE, BC, SELFPAY | END 2024-07-28 11:36 | LOC: ACC 08:49 | PROVIDERS: PCP Family Medicine; Visit Provider Family Medicine | DX: Z79.01 Long term (current) use of anticoagulants (principal); I48.91 Unspecified atrial fibrillation | CPT/HCPCS: 85610; 99211; G0463 ==

== ENCOUNTER 2024-08-04 18:51 | Emergency (ER) | payer MEDICARE, BC, SELFPAY ==
[2024-08-04 18:54] VITALS: BP 104/60; PULSE 80; RESP 16; TEMP 36.4; O2SAT 95; BMI 29.9
--- NOTE | 2024-08-04 18:58 | CT_ITS ---
PROCEDURE INFORMATION: Exam: CT Head Without Contrast Exam date and time: 08/04/2024 7:10 PM Age: 73 years old Clinical indication: Injury or trauma; Fall; Other: Pain; Additional info: Fall, injury TECHNIQUE: Imaging protocol: Computed tomography of the head without contrast. Radiation optimization: All CT scans at this facility use at least one of these dose optimization techniques: automated exposure control; mA and/or kV adjustment per patient size (includes targeted exams where dose is matched to clinical indication); or iterative reconstruction. COMPARISON: CT HEAD/BRAIN WO CON 02/18/2024 1:19 PM FINDINGS: Brain: No intracranial hemorrhage. Mild atrophic changes of the ventricles and subarachnoid spaces. Mild chronic small-vessel ischemic changes noted. No mass, mass effect or midline shift. Intracranial atherosclerotic changes are noted. Cerebral ventricles: See Brain finding. Paranasal sinuses: Visualized sinuses are unremarkable. No fluid levels. Mastoid air cells: Visualized mastoid air cells are well aerated. Bones: Unremarkable. No acute fracture. Soft tissues: Unremarkable. IMPRESSION: Stable noncontrast CT brain with chronic changes. No acute intracranial abnormality.
--- NOTE | 2024-08-04 18:58 | CT_ITS ---
PROCEDURE INFORMATION: Exam: CT Cervical Spine Without Contrast Exam date and time: 08/04/2024 7:12 PM Age: 73 years old Clinical indication: Injury or trauma; Fall; Other: Pain; Additional info: Fall, injury TECHNIQUE: Imaging protocol: Computed tomography of the cervical spine without contrast. Radiation optimization: All CT scans at this facility use at least one of these dose optimization techniques: automated exposure control; mA and/or kV adjustment per patient size (includes targeted exams where dose is matched to clinical indication); or iterative reconstruction. COMPARISON: CT SOFT TISSUE NECK WO CON 02/18/2024 1:21 PM FINDINGS: Bones: No evident fracture. Degenerative changes of the C-spine most pronounced at C6-C7. Alignment and vertebral body heights are intact. Lungs: Lung apices are normal. Soft tissues: Unremarkable. IMPRESSION: Degenerative changes. No acute abnormality.
--- NOTE | 2024-08-04 19:00 | ED_ITS ---
Discharge Plan Disposition Patient Disposition: Xfer Other Prescriptions Prescriptions: No Action chlorthalidone 25 mg tablet 25 mg PO DAILY potassium chloride 10 mEq capsule, extended release 10 meq PO DAILY losartan 100 mg tablet 100 mg PO DAILY amlodipine 10 mg tablet 10 mg PO DIRECTED azelastine 137 mcg (0.1 %) spray,non-aerosol 1 spray intranasal DIRECTED dapagliflozin propanediol [Farxiga] 10 mg tablet 10 mg PO DIRECTED rosuvastatin 40 mg tablet 40 mg PO DAILY carvedilol 6.25 mg tablet 6.25 mg PO DIRECTED tizanidine 4 mg tablet 4 mg PO DIRECTED metformin 500 mg tablet extended release 24 hr 500 mg PO DAILY budesonide-formoterol [Symbicort] 160-4.5 mcg/actuation HFA aerosol inhaler 2 puff inhalation BID 90 Days Qty: 10.2 4RF albuterol sulfate 90 mcg/actuation HFA aerosol inhaler See Rx Instructions .ROUTE .COMPLEX Qty: 8.5 1RF Dose Instruction: INHALE 2 PUFFS BY MOUTH EVERY 6 HOURS NEEDED FOR SHORTNESS OF BREATH OR WHEEZING Rx Instructions: INHALE 2 PUFFS BY MOUTH EVERY 6 HOURS NEEDED FOR SHORTNESS OF BREATH OR WHEEZING aspirin 81 MG tablet,delayed release (DR/EC) 81 mg PO DAILY fenofibrate micronized 134 capsule 145 mg PO DAILY tamsulosin 0.4 MG capsule 0.4 mg PO HS omeprazole 20 MG capsule,delayed release(DR/EC) 20 mg PO DAILY tizanidine 4 MG capsule 4 mg PO DAILY warfarin 5 MG tablet See Rx Instructions .Route .COMPLEX Rx Instructions: TAKE 2 TABLETS BY MOUTH ONCE DAILY montelukast [Singulair] 10 mg tablet 10 mg PO DAILY fluticasone propionate [Flonase Allergy Relief] 50 mcg/actuation spray,suspension 1 spray intranasal DAILY Rx Instructions: administer into each nostril glimepiride 2 MG tablet 2 mg PO DAILY hydrocodone-acetaminophen 7.5-325 mg tablet 1 tab PO 5XDAY Qty: 150 0RF pregabalin 100 mg capsule 100 mg PO TID Qty: 90 0RF Referrals Follow up/Referrals: Provider,Referral, [Referring] - See instructions Clinical Impressions Clinical Impression: Nausea vomiting and diarrhea, Fall, Laceration of occipital region of scalp, MIKALA (acute kidney injury), Dehydration, severe, Supratherapeutic INR Instructions Patient Instructions: DI for Laceration Repair Print Language Print Language: German Discharge ED Provider: Santino Simental General Adult HPI General Chief complaint: Wound/Laceration Stated complaint: Fall Time Seen by Provider: 08/04/24 18:52 Mode of Arrival: EMS Source of Information: Patient Description of Symptoms (Recalled from ER Triage Doc. by RN): Patient reports that he slipped on some water, fell and hit the back of his head. Denies LOC. History of Present Illness HPI narrative: Patient is a 73-year-old male chronically anticoagulated on Coumadin secondary to atrial fibrillation who presents today after a fall. He had spilled some water and slipped on this water and fell and struck the posterior/occipital region of his scalp sustained a laceration and head injury. States he feels a little bit dizzy but no loss of consciousness or change in mental status etc. Denies any other injuries elsewhere. No chest abdomen pelvis or other long bone injuries. Of note patient has had nausea vomiting and diarrhea over the last 48 hours and wants to be evaluated for that states he has had decreased p.o. intake. He is adamant that he was not lightheaded or having any type of presyncopal symptoms prior to this fall today. Just would like both conditions to be evaluated the emergency department today. Denies any significant abdominal pain preceding the fall. Related Data Home Medications ?Medication ?Instructions ?Recorded ?Confirmed aspirin 81 mg tablet,delayed 81 mg PO DAILY Blood thinner 02/22/18 07/10/24 release fenofibrate micronized 134 mg 145 mg PO DAILY Cholesterol 02/22/18 07/10/24 capsule omeprazole 20 mg capsule,delayed 20 mg PO DAILY GERD 02/22/18 07/10/24 release tamsulosin 0.4 mg capsule 0.4 mg PO HS bladder 02/22/18 07/10/24 tizanidine 4 mg capsule 4 mg PO DAILY muscle relaxer 02/22/18 07/10/24 chlorthalidone 25 mg tablet 25 mg PO DAILY HTN 03/11/20 07/10/24 losartan 100 mg tablet 100 mg PO DAILY HTN 03/11/20 07/10/24 potassium chloride 10 mEq 10 meq PO DAILY supp. 03/11/20 07/10/24 capsule,extended release rosuvastatin 40 mg tablet 40 mg PO DAILY Cholesterol 06/11/20 07/10/24 glimepiride 2 mg tablet 2 mg PO DAILY Diabetes 05/12/21 07/10/24 warfarin 5 mg tablet See Rx Instructions .Route 12/11/21 07/10/24 .COMPLEX Blood thinner fluticasone propionate 50 1 spray intranasal DAILY ALLERGIES 01/18/23 07/10/24 mcg/actuation nasal spray,suspension (Flonase Allergy Relief) montelukast 10 mg tablet 10 mg PO DAILY ALLERGIES 01/18/23 07/10/24 (Singulair) carvedilol 6.25 mg tablet 6.25 mg PO DIRECTED BLOOD 07/27/23 07/10/24 PRESSURE amlodipine 10 mg tablet 10 mg PO DIRECTED BLOOD PRESSURE 02/21/24 07/10/24 azelastine 137 mcg (0.1 %) nasal 1 spray intranasal DIRECTED . 02/21/24 07/10/24 spray dapagliflozin propanediol 10 mg 10 mg PO DIRECTED Diabetes 02/21/24 07/10/24 tablet (Farxiga) metformin 500 mg tablet,extended 500 mg PO DAILY Diabetes 02/29/24 07/10/24 release 24 hr tizanidine 4 mg tablet 4 mg PO DIRECTED Pain 02/29/24 07/10/24 Previous Rx's ?Medication ?Instructions ?Recorded budesonide-formoterol HFA 160 2 puff inhalation BID 90 days 04/12/23 mcg-4.5 mcg/actuation aerosol #10.2 grams inhaler (Symbicort) albuterol sulfate 90 mcg/actuation See Rx Instructions .Route 09/28/23 aerosol inhaler .COMPLEX #8.5 grams hydrocodone 7.5 mg-acetaminophen 1 tab PO 5XDAY #150 tabs 07/10/24 325 mg tablet pregabalin 100 mg capsule 100 mg PO TID Pain #90 caps 07/10/24 Allergies Allergy/AdvReac Type Severity Reaction Status Date / Time levofloxacin Allergy Intermediate SWELLING Verified 04/03/24 09:42 AT SITE OF INJECTION [facility] Disclaimer: The information contained in this section may have been updated after the patient was seen, as this information can be updated by other users. Medical History (Updated 08/04/24 @ 21:18 by Santino Simental MD) Trismus Cheek mass Hyperlipidemia Hypertension Atrial fibrillation History of COPD Asthma History of pacemaker COPD (chronic obstructive pulmonary disease) Obstructive sleep apnea syndrome Allergic rhinitis, unspecified Pulmonary emphysema Dyspnea on exertion Surgical History History of colonoscopy History of breast lump removal History of hernia surgery History of cholecystectomy Family History Other Asthma Diabetes Family history of pacemaker Heart attack Hypertension Lung cancer Social History Smoking Status: Never smoker alcohol intake: current substance use type: denies use current occupational status: retired Travel in the last 8 weeks: None household members: spouse housing: apartment current occupational exposures/hazards: No caffeine: No Have you lived/traveled outside [place] in past 30 days?: No Contact w/someone who lives/traveled outside US past 30 days?: No Exposure to someone with infectious disease in past 14 days?: No Do you have a fever (greater than 100.4 F or 38 C)?: No Have you tested positive for COVID-19: No Exposed to someone with COVID-19 in past 14 days?: No Do you have a sore throat?: No Do you have a cough?: No Do you have any weakness?: No Do you have any diarrhea?: No Are you experiencing any unusual bleeding?: No Do you have any muscle aches/pain?: No Do you have any abdominal pain?: No Are you experiencing loss of taste or smell?: No Other Medical History Have you received the Flu Vaccine for this season: Yes Have you received the Pneumonia Vaccine: Yes ROS Obtained: Yes All systems reviewed & no additional complaints except as documented Physical Exam General General appearance: alert and in no apparent distress Head Head exam: other (No evidence of Spears sign raccoon eyes or depressible fracture there is a 1-1/2 cm laceration at the occipital region horizontally oriented posterior aspect of the scalp) Neck Neck exam: Present normal inspection and full ROM; Absent tenderness Respiratory Respiratory exam: Present normal lung sounds bilaterally Cardiovascular Cardiovascular exam: Present regular rate; Absent normal rhythm Abdominal Exam Abdominal exam: Present soft; Absent distention or tenderness Neurological Exam Neurological exam: Present alert, oriented X3 and other (Nonfocal) Medical Decision Making Medical Records Screening: Per USPSTF and CDC recommendations, given the prevalence of disease in our region, it is our hospital?s policy to screen for HIV and viral Hepatitis for all patients aged 18 and over and those with ongoing risk factors. Nicolas Inquiry Pt receiving controlled substance: No Vital Signs: 08/04/24 18:54 08/04/24 19:30 08/04/24 20:00 Temperature 97.5 F L Temperature Source Oral Pulse Rate 73 71 Pulse Rate [Radial] 80 Respiratory Rate 16 20 17 Blood Pressure 110/61 93/54 L Blood Pressure [Right Arm] 104/60 L Blood Pressure Mean [Right Arm] 74 Blood Pressure Source [Right Arm] Automatic Cuff Blood Pressure Position [Right Arm] Sitting 02 Sat by Pulse Oximetry 95 97 96 Oxygen Delivery Method Room Air Room Air Room Air 08/04/24 20:36 08/04/24 21:00 08/04/24 21:01 Temperature Temperature Source Pulse Rate 70 70 70 Pulse Rate [Radial] Respiratory Rate 11 L 14 18 Blood Pressure 85/50 L 94/46 L 93/54 L Blood Pressure [Right Arm] Blood Pressure Mean [Right Arm] Blood Pressure Source [Right Arm] Blood Pressure Position [Right Arm] 02 Sat by Pulse Oximetry 96 97 99 Oxygen Delivery Method Room Air Room Air Room Air Lab Data Lab results reviewed: Yes I reviewed the patient's lab results. Lab Results 08/04/24 19:48: SARS-CoV-2 (PCR) Not detected, Influenza A Untype (PCR) Not detected, Influenza Type B (PCR) Not detected 08/04/24 19:55: WBC 4.7 L, RBC 4.55 L, Hgb 13.3 L, Hct 40.4 L, MCV 88.8, MCH 29.2, MCHC 32.9, RDW 14.6, Plt Count 137 L, MPV 13.4 H, Neut % (Auto) 48.9, Lymph % (Auto) 36.6, [place] % (Auto) 12.6 H, Eos % (Auto) 1.1, Baso % (Auto) 0.4, Neut # (Auto) 2.3, Lymph # (Auto) 1.7, [place] # (Auto) 0.6, Eos # (Auto) 0.1, Baso # (Auto) 0.0, PT 39.0 H, INR 3.99 H, Sodium 135 L, Potassium 3.5, Chloride 100, Carbon Dioxide 19 L, Anion Gap 19.5 H, BUN 94 H, Creatinine 5.00 H, Estimated Creat Clear 21, Estimated GFR 11 L*, Est GFR ( Amer) 14 L*, Glucose 179 H , Calcium 8.2 L, Phosphorus 4.9 H, Magnesium 2.1, Total Bilirubin 0.8, AST 37, ALT 26, Alkaline Phosphatase 30 L, Total Protein 6.5, Albumin 3.8, Globulin 2.7, Albumin/Globulin Ratio 1.4 08/04/24 19:55 08/04/24 19:55 Orders (Tests/Meds): ED MEDICATIONS Generic Name Dose Route Start Last Admin Trade Name Freq PRN Reason Stop Dose Admin Lactated Ringer's 1,000 mls @ 999 mls/hr 08/04/24 20:44 08/04/24 20:46 Lactated Ringer's 1000 Ml Bag IV 08/04/24 21:44 999 mls/hr .Q1H1M ONE Administration Discontinued Medications Generic Name Dose Route Start Last Admin Trade Name Freq PRN Reason Stop Dose Admin Lactated Ringer's 1,000 mls @ 999 mls/hr 08/04/24 19:00 08/04/24 19:22 Lactated Ringer's 1000 Ml Bag IV 08/04/24 20:00 999 mls/hr .Q1H1M SHAUNNA Administration ORDERS Category Date Time Status CT cervical spine wo con Stat Cat Scan 08/04/24 18:[address] head/brain wo con Stat Cat Scan 08/04/24 18:58 Completed CBC w/Auto Diff [Complete Blood Count Auto Diff] Stat Lab 08/04/24 19:55 Completed CMP [Comprehensive Metabolic Panel] Stat Lab 08/04/24 19:55 Completed HIV Combo Stat Lab 08/04/24 19:55 Received Hepatitis C Ab Qual. W/ RFX Stat Lab 08/04/24 19:55 Received Magnesium Stat Lab 08/04/24 19:55 Completed PT INR [Prothrombin Time INR] Stat Lab 08/04/24 19:55 Completed Phosphorous Stat Lab 08/04/24 19:55 Completed Rapid PCR Covid and Flu A/B Stat Lab 08/04/24 19:48 Completed Medical Decision Narrative: Patient with above history and physical. This does not appear to been a syncopal episode rather he has 2 presenting complaints today including nausea vomiting diarrhea which is most likely viral in nature has a benign abdominal exam both from a trauma and infectious/surgical perspective. Will check basic blood work give IV fluids IV Zofran anticipate giving Zofran and loperamide upon being discharged. Does not appear to be moderately or severely dehydrated. Regarding his fall which is unrelated to this other condition today I do not believe he had a syncopal episode rather this was a mechanical fall resulting in a posterior scalp laceration. Will get a CT scan of the patient's head and cervical spine and to check his INR. Also he will need to have his laceration closed with davis. Please see procedure note for that. CT scan performed which I personally interpreted shows no evidence of an acute intracranial bleed skull fracture or cervical spine fracture radiology reads consistent with this. Patient is supratherapeutic on his INR at 3.99. Will need to be observed and likely have his Coumadin held. More concern only however patient has a significant acute kidney injury with a creatinine of 5. After further questioning patient had decreased urine output over the last 24 to 48 hours. IV fluids are continuing. We have no nephrology coverage here after numerous conversations with her hospitalist in the past they are not comfortable admitting such as significant change in creatinine as we do not have any ability to intervene from a dialysis etc. standpoint. Therefore patient will be transferred to [place] a spoke with Dr. Boyd who graciously accepted this patient for further management. Patient agreeable to this plan. Procedures Laceration Laceration 1: Site: scalp Side (If applicable): right (Actually centrally located) Size (cm): 5 Description: linear Depth: involves subcutaneous layer Local Anesthetic: lidocaine 1% and with epi Amount of anesthesia used (mL): 5 Pre-repair: wound explored and irrigated extensively Skin layer closed with: other (Davis x 5) Critical Care Critical Care Time Critical Care Time: Yes Attestation: On 08/04/24, the high probability of a clinically significant, sudden or life threatening deterioration of the following system(s) required my full and direct attention, intervention and personal management. The time I documented below is in addition to time spent performing reported procedures but includes the following listed in this critical care notation. Total Time Total Critical Care Time: 35
--- NOTE | 2024-08-04 19:04 | ECG_ITS ---
APPROVED REPORT Exam: Resting ECG HR:74 bpm ECG Measurements Heart Rate 74 AXES QRSd 141 QRS 164 QT 404 T 23 QTc 432 Conclusion ELECTRONIC VENTRICULAR PACEMAKER ABNORMAL RHYTHM ECG UNCONFIRMED REPORT Electronically signed by : Glenn Simental, 08/04/2024 23:53:43
[2024-08-04] MEDS: LACTATED RINGERS 1000ML 1,000 ML 999 ML IV ×3 (19:22→22:39)
[2024-08-04 19:30] VITALS: BP 110/61; PULSE 73; RESP 20; O2SAT 97
[2024-08-04 19:51] LABS: Coronavirus 19, PCR Not Detected (NotDetected); Influenza A, PCR Not Detected (NotDetected); Influenza B, PCR Not Detected (NotDetected)
--- NOTE | 2024-08-04 19:59 | PC.NURSE ---
20G USG IV placed to KEV[facility]
[2024-08-04 20:00] VITALS: BP 93/54; PULSE 71; RESP 17; O2SAT 96
[2024-08-04 20:01] LABS: Basophils % 0.4 % (0.1-2.0); Eosinophils # 0.1 K/mm3 (0.0-0.4); Eosinophils % 1.1 % (0.1-12.0); Hematocrit 40.4 % (42.0-52.0); Hemoglobin 13.3 g/dL (14.1-18.0); Lymphocytes # 1.7 K/mm3 (0.7-4.5); Lymphocytes % 36.6 % (10-50); Mean Corpuscular HGB Conc 32.9 g/dL (31.8-35.4); Mean Corpuscular Hemoglobin 29.2 pg (27.0-31.2); Mean Corpuscular Volume 88.8 fl (80-94); Mean Platelet Volume 13.4 fl (7.4-10.4); Monocytes # 0.6 K/mm3 (0.1-1.0); Monocytes % 12.6 % (1.7-9.3); Neutrophils # 2.3 K/mm3 (1.8-7.8); Neutrophils % 48.9 % (37.0-80.0); Platelet Count 137 K/mm3 (142-424); Red Blood Count 4.55 M/mm3 (4.60-6.20); Red Cell Distribution Width 14.6 % (11.5-17.5); White Blood Count 4.7 K/mm3 (4.8-10.8)
[2024-08-04 20:07] LABS: Albumin Level 3.8 g/dl (3.5-5.0); Chloride 100 mmol/L (98-107); Potassium 3.5 mmoL/L (3.5-5.1); Sodium 135 mmol/L (136-145)
[2024-08-04 20:10] LABS: Alanine Aminotransferase 26 U/L (12-78); Alkaline Phosphatase 30 U/L (38-126); Anion Gap 19.5 mEq/L (5-15); Aspartate Amino Transferase 37 U/L (17-59); Bilirubin,Total 0.8 mg/dl (0.2-1.3); Carbon Dioxide 19 mmol/L (22.0-30.0); Creatinine Clearance Estimated 21 mL/min (50-200); Estimated Glomerular Filt Rate 11 ml/min (>60); GFR (African American) 14 ML/MIN (>60); Phosphorous 4.9 mg/dl (2.5-4.5); Total Protein,Serum 6.5 g/dl (6.3-8.2)
[2024-08-04 20:11] LABS: Calcium 8.2 mg/dl (8.4-10.2); Glucose 179 mg/dl (74-100); Magnesium 2.1 mg/dl (1.6-2.3)
[2024-08-04 20:12] LABS: INR 3.99 (0.9-1.1)
[2024-08-04 20:13] LABS: Blood Urea Nitrogen 94 mg/dl (9-20)
--- NOTE | 2024-08-04 20:16 | PC.NURSE ---
critical lab called [facility] 5.00. aware
[2024-08-04 20:36] VITALS: BP 85/50; PULSE 70; RESP 11; O2SAT 96
[2024-08-04 21:00] VITALS: BP 94/46; PULSE 70; RESP 14; O2SAT 97
[2024-08-04 21:01] VITALS: BP 93/54; PULSE 70; RESP 18; O2SAT 99
[2024-08-04 21:01] LABS: Albumin/Globulin Ratio 1.4 (1.1-1.8); Globulin 2.7 g/dL (1.3-3.2)
--- NOTE | 2024-08-04 21:05 | PC.NURSE ---
Spoke with [facility]. awaiting a call back at this time.
[2024-08-04 21:13] LABS: HIV Combo NEGATIVE (Negative)
--- NOTE | 2024-08-04 21:14 | PC.NURSE ---
speaking with hospitalist at [facility] at this time
[2024-08-04 21:21] LABS: Hepatitis C Ab Qual. W/ RFX NEGATIVE (Negative)
[2024-08-05 02:40] VITALS: BP 105/47; PULSE 70; RESP 18; TEMP 36.8; O2SAT 99
== END 2024-08-05 02:46 | disposition other institution (70) ==
PROVIDERS: Emergency Provider Student in an Organized Health Care Education/Training Program; PCP Family Medicine
DX: S01.01XA Laceration without foreign body of scalp, initial encounter (principal); E86.0 Dehydration; R11.2 Nausea with vomiting, unspecified; N17.9 Acute kidney failure, unspecified; R79.1 Abnormal coagulation profile; R42 Dizziness and giddiness; R19.7 Diarrhea, unspecified; R63.8 Other symptoms and signs concerning food and fluid intake; Z79.01 Long term (current) use of anticoagulants; W01.10XA Fall on same level from slipping, tripping and stumbling with subsequent striking against unspecified object, initial encounter; Y93.89 Activity, other specified; Y92.009 Unspecified place in unspecified non-institutional (private) residence as the place of occurrence of the external cause
CPT/HCPCS: 12002; 70450; 72125; 80053; 83735; 84100; 85025; 85610; 86803; 87389; 87636; 93005; 96360; 96361; 99291; J7120

== ENCOUNTER 2024-08-10 09:15 | Outpatient (POV) | payer MEDICARE, BC, SELFPAY ==
[2024-08-10 09:44] VITALS: BP 137/79; PULSE 71; RESP 14; O2SAT 97; BMI 29.9
--- NOTE | 2024-08-10 10:03 | A.OFFVIS_ITS ---
[facility] Disclaimer: The information contained in this section may have been updated after the patient was seen, as this information can be updated by other users. Medical History Trismus Cheek mass Hyperlipidemia Hypertension Atrial fibrillation History of COPD Asthma History of pacemaker COPD (chronic obstructive pulmonary disease) Obstructive sleep apnea syndrome Allergic rhinitis, unspecified Pulmonary emphysema Dyspnea on exertion Surgical History History of colonoscopy History of breast lump removal History of hernia surgery History of cholecystectomy Family History Other Asthma Diabetes Family history of pacemaker Heart attack Hypertension Lung cancer Social History Smoking Status: Never smoker alcohol intake: current substance use type: denies use current occupational status: other Travel in the last 8 weeks: None household members: spouse housing: apartment current occupational exposures/hazards: No caffeine: No PM Subjective & Objective Subjective Subjective:: Patient is a pleasant 73-year-old male who presents today for 1 month follow-up and medication refill. Today he does rate his pain an 8 out of 10. Patient does state from our last visit he had a fall on Wednesday resulting in him having to go to the ER. Patient states that he was filling up a water bottle and ended up slipping on water on the floor. He does state that he ended up hitting the back of his head and his tailbone. He states they did do imaging and did have to put in tej that he believes was 5 for his head. Patient states they did also do some labs and that he ended up getting sent to [facility] for evaluation by a kidney doctor. He states that he was told there was nothing severe however was given a new medication and told to follow-up with primary care. Patient is currently managed with Rives 7.5 mg 5 times a day, Lyrica 100 mg 3 times a day and compounded cream from our office. He does state that he also needs refill on the compounded cream. He denies any side effects from these medications. His Nicolas has been reviewed and is appropriate. Review of Systems: General: No recent weight changes, no fever, no sleep disturbances Respiratory: No cough, no shortness of air, no recurring pulmonary infections Cardiovascular/peripheral vascular: No chest pain, no palpitations, no edema, no shortness of breath Gastrointestinal: No new onset incontinence, normal bowel movements reported Genitourinary: No new onset incontinence Musculoskeletal: Low back pain, tailbone pain Psychiatric: [Normal mood/affect] Neurological: [Denies weakness in extremities], [denies balance issues] Pain at rest (0-10 scale): 8 Objective Objective:: Physical Exam: General: Alert and oriented x3, no acute distress, pleasant and cooperative Lungs: Respirations even and unlabored, symmetrical chest expansion Eyes: PERRL Musculoskeletal: Flexion and extension of lumbar [spine] somewhat guarded secondary to pain, [antalgic gait noted] Neurological: Speech clear, no gross sensory deficit Has patient had previous pain injection?: No Conservative treatment options previously tried: Prescription medications Length of treatment: Longer than 12 weeks Meds Home Medications and Allergies Home Medications ?Medication ?Instructions ?Recorded ?Confirmed ?Type aspirin 81 mg tablet,delayed 81 mg PO DAILY Blood thinner 02/22/18 08/10/24 History release fenofibrate micronized 134 mg 145 mg PO DAILY Cholesterol 02/22/18 08/10/24 History capsule omeprazole 20 mg capsule,delayed 20 mg PO DAILY GERD 02/22/18 08/10/24 History release tamsulosin 0.4 mg capsule 0.4 mg PO HS bladder 02/22/18 08/10/24 History tizanidine 4 mg capsule 4 mg PO DAILY muscle relaxer 02/22/18 08/10/24 History chlorthalidone 25 mg tablet 25 mg PO DAILY HTN 03/11/20 08/10/24 History losartan 100 mg tablet 100 mg PO DAILY HTN 03/11/20 08/10/24 History potassium chloride 10 mEq 10 meq PO DAILY supp. 03/11/20 08/10/24 History capsule,extended release rosuvastatin 40 mg tablet 40 mg PO DAILY Cholesterol 06/11/20 08/10/24 History glimepiride 2 mg tablet 2 mg PO DAILY Diabetes 05/12/21 08/10/24 History warfarin 5 mg tablet See Rx Instructions .Route 12/11/21 08/10/24 History .COMPLEX Blood thinner fluticasone propionate 50 1 spray intranasal DAILY ALLERGIES 01/18/23 08/10/24 History mcg/actuation nasal spray,suspension (Flonase Allergy Relief) montelukast 10 mg tablet 10 mg PO DAILY ALLERGIES 01/18/23 08/10/24 History (Singulair) budesonide-formoterol HFA 160 2 puff inhalation BID 90 days 04/12/23 08/10/24 Rx mcg-4.5 mcg/actuation aerosol #10.2 grams inhaler (Symbicort) carvedilol 6.25 mg tablet 6.25 mg PO DIRECTED BLOOD 07/27/23 08/10/24 History PRESSURE albuterol sulfate 90 mcg/actuation See Rx Instructions .Route 09/28/23 08/10/24 Rx aerosol inhaler .COMPLEX #8.5 grams amlodipine 10 mg tablet 10 mg PO DIRECTED BLOOD PRESSURE 02/21/24 08/10/24 History azelastine 137 mcg (0.1 %) nasal 1 spray intranasal DIRECTED . 02/21/24 08/10/24 History spray dapagliflozin propanediol 10 mg 10 mg PO DIRECTED Diabetes 02/21/24 08/10/24 History tablet (Farxiga) metformin 500 mg tablet,extended 500 mg PO DAILY Diabetes 02/29/24 08/10/24 History release 24 hr tizanidine 4 mg tablet 4 mg PO DIRECTED Pain 02/29/24 08/10/24 History hydrocodone 7.5 mg-acetaminophen 1 tab PO 5XDAY #150 tabs 07/10/24 08/10/24 Rx 325 mg tablet pregabalin 100 mg capsule 100 mg PO TID Pain #90 caps 07/10/24 08/10/24 Rx New Prescriptions to Start Prescriptions: Allergies Allergy/AdvReac Type Severity Reaction Status Date / Time levofloxacin Allergy Intermediate SWELLING Verified 04/03/24 09:42 AT SITE OF INJECTION Assessment and Plan *Assessment and plan (1) Lumbar radiculopathy: Status: Acute Category: Medical Code(s): M54.16 - Radiculopathy, lumbar region (2) Degenerative disc disease, lumbar: Status: Acute Qualifiers: Disc-related pain type: discogenic back pain and lower extremity pain Qualified Code(s): M51.362 - Other intervertebral disc degeneration, lumbar region with discogenic back pain and lower extremity pain Category: Medical Code(s): M51.369 - Other intervertebral disc degeneration, lumbar region without mention of lumbar back pain or lower extremity pain Plan I will refill the patient's Rives, Lyrica and compounded cream. Patient was counseled that if he continues to have the chronic tailbone pain that it may be something we could do an injection for and to let us know. Patient agrees with this plan of care. Patient will return to clinic in 1 month. Risks and benefits of the medication have been explained in detail to the patient. The patient does understand the risk of dependence on the medication when given over a prolonged period. Patient has been advised of risks of oversedation with the prescribed medication. Narcan has been offered to the paitent in the event of ove rsedation. Patient has been advised that a family member should also be educated regarding administration of Narcan. The patient has been advised to consult with his/her primary care provider and pharmacist regarding drug-drug interaction of medications currently prescribed. Patient has been prescribed a controlled substance after being counseled on the medication, medication safety, and possible side effects. Opioid contract was reviewed and signed by the patient, and that they have agreed to all of the terms set forth by our compliance program. A UDS is needed to verify patient's compliance with our office pain contract. This is ordered based off specific treatments related to chronic pain with the potential to abuse certain medications. Patient has been instructed to contact the clinic with any concerns before the next appointment. Dr. Martel has reviewed this note and agrees with this plan of care. This note was dictated using voice recognition software and make contain errors or omissions.
== END 2024-08-10 23:59 | disposition home or self-care (01) ==
PROVIDERS: PCP Family Medicine; Visit Provider Nurse Practitioner Family
DX: M51.16 Intervertebral disc disorders with radiculopathy, lumbar region (principal); Z79.899 Other long term (current) drug therapy
CPT/HCPCS: 99212; G0463

== ENCOUNTER 2024-09-07 09:31 | Outpatient (POV) | payer MEDICARE, BC, SELFPAY ==
--- NOTE | 2024-09-07 10:10 | A.OFFVIS_ITS ---
[facility] Disclaimer: The information contained in this section may have been updated after the patient was seen, as this information can be updated by other users. Medical History Trismus Cheek mass Hyperlipidemia Hypertension Atrial fibrillation History of COPD Asthma History of pacemaker COPD (chronic obstructive pulmonary disease) Obstructive sleep apnea syndrome Allergic rhinitis, unspecified Pulmonary emphysema Dyspnea on exertion Surgical History History of colonoscopy History of breast lump removal History of hernia surgery History of cholecystectomy Family History Other Asthma Diabetes Family history of pacemaker Heart attack Hypertension Lung cancer Social History Smoking Status: Never smoker alcohol intake: current substance use type: denies use current occupational status: other Travel in the last 8 weeks?: None household members: spouse housing: apartment current occupational exposures/hazards: No caffeine: No PM Subjective & Objective Subjective Subjective:: Patient is a pleasant 73-year-old male who presents today for medication refill and follow-up. Today he does rate his pain a 8 out of 10. He denies any new falls from our last appointment. He states he is doing much better today. He is currently managed with Deep River 7.5 mg 5 times a day, Lyrica 100 mg 3 times a day and compounded cream from our office. He denies any side effects. His Nicolas has been reviewed and is appropriate. Review of Systems: General: No recent weight changes, no fever, no sleep disturbances Respiratory: No cough, no shortness of air, no recurring pulmonary infections Cardiovascular/peripheral vascular: No chest pain, no palpitations, no edema, no shortness of breath Gastrointestinal: No new onset incontinence, normal bowel movements reported Genitourinary: No new onset incontinence Musculoskeletal: Low back pain Psychiatric: [Normal mood/affect] Neurological: [Denies weakness in extremities], [denies balance issues] Pain at rest (0-10 scale): 8 Objective Objective:: Physical Exam: General: Alert and oriented x3, no acute distress, pleasant and cooperative Lungs: Respirations even and unlabored, symmetrical chest expansion Eyes: PERRL Musculoskeletal: Flexion and extension of lumbar [spine] somewhat guarded secondary to pain, [antalgic gait noted] Neurological: Speech clear, no gross sensory deficit Has patient had previous pain injection?: No Conservative treatment options previously tried: Prescription medications Length of treatment: Longer than 12 weeks Meds Home Medications and Allergies Home Medications ?Medication ?Instructions ?Recorded ?Confirmed ?Type aspirin 81 mg tablet,delayed 81 mg PO DAILY Blood thinner 02/22/18 08/10/24 History release fenofibrate micronized 134 mg 145 mg PO DAILY Cholesterol 02/22/18 08/10/24 History capsule omeprazole 20 mg capsule,delayed 20 mg PO DAILY GERD 02/22/18 08/10/24 History release tamsulosin 0.4 mg capsule 0.4 mg PO HS bladder 02/22/18 08/10/24 History tizanidine 4 mg capsule 4 mg PO DAILY muscle relaxer 02/22/18 08/10/24 History chlorthalidone 25 mg tablet 25 mg PO DAILY HTN 03/11/20 08/10/24 History losartan 100 mg tablet 100 mg PO DAILY HTN 03/11/20 08/10/24 History potassium chloride 10 mEq 10 meq PO DAILY supp. 03/11/20 08/10/24 History capsule,extended release rosuvastatin 40 mg tablet 40 mg PO DAILY Cholesterol 06/11/20 08/10/24 History glimepiride 2 mg tablet 2 mg PO DAILY Diabetes 05/12/21 08/10/24 History warfarin 5 mg tablet See Rx Instructions .Route 12/11/21 08/10/24 History .COMPLEX Blood thinner fluticasone propionate 50 1 spray intranasal DAILY ALLERGIES 01/18/23 08/10/24 History mcg/actuation nasal spray,suspension (Flonase Allergy Relief) montelukast 10 mg tablet 10 mg PO DAILY ALLERGIES 01/18/23 08/10/24 History (Singulair) budesonide-formoterol HFA 160 2 puff inhalation BID 90 days 04/12/23 08/10/24 Rx mcg-4.5 mcg/actuation aerosol #10.2 grams inhaler (Symbicort) carvedilol 6.25 mg tablet 6.25 mg PO DIRECTED BLOOD 07/27/23 08/10/24 History PRESSURE albuterol sulfate 90 mcg/actuation See Rx Instructions .Route 09/28/23 08/10/24 Rx aerosol inhaler .COMPLEX #8.5 grams amlodipine 10 mg tablet 10 mg PO DIRECTED BLOOD PRESSURE 02/21/24 08/10/24 History azelastine 137 mcg (0.1 %) nasal 1 spray intranasal DIRECTED . 02/21/24 08/10/24 History spray dapagliflozin propanediol 10 mg 10 mg PO DIRECTED Diabetes 02/21/24 08/10/24 History tablet (Farxiga) metformin 500 mg tablet,extended 500 mg PO DAILY Diabetes 02/29/24 08/10/24 History release 24 hr tizanidine 4 mg tablet 4 mg PO DIRECTED Pain 02/29/24 08/10/24 History hydrocodone 7.5 mg-acetaminophen 1 tab PO 5XDAY #150 tabs 08/10/24 Rx 325 mg tablet pregabalin 100 mg capsule 100 mg PO TID Pain #90 caps 08/10/24 Rx New Prescriptions to Start Prescriptions: Allergies Allergy/AdvReac Type Severity Reaction Status Date / Time levofloxacin Allergy Intermediate SWELLING Verified 04/03/24 09:42 AT SITE OF INJECTION Assessment and Plan *Assessment and plan (1) Lumbar radiculopathy: Status: Acute Category: Medical Code(s): M54.16 - Radiculopathy, lumbar region (2) Degenerative disc disease, lumbar: Status: Acute Qualifiers: Disc-related pain type: discogenic back pain and lower extremity pain Qualified Code(s): M51.362 - Other intervertebral disc degeneration, lumbar region with discogenic back pain and lower extremity pain Category: Medical Code(s): M51.369 - Other intervertebral disc degeneration, lumbar region without mention of lumbar back pain or lower extremity pain Plan Patient continues to do well with his current medication regimen. Patient did get his refills on his compounded cream at the last visit. I will refill the patient's Deep River and Lyrica and provide a 1 month supply of this medication. Patient will return to clinic in 1 month. Risks and benefits of the medication have been explained in detail to the patient. The patient does understand the risk of dependence on the medication when given over a prolonged period. Patient has been advised of risks of oversedation with the prescribed medication. Narcan has been offered to the paitent in the event of oversedation. Patient has been advised that a family member should also be educated regarding administration of Narcan. The patient has been advised to consult with his/her primary care provider and pharmacist regarding drug-drug interaction of medications currently prescribed. Patient has been prescribed a controlled substance after being counseled on the medication, medication safety, and possible side effects. Opioid contract was reviewed and signed by the patient, and that they have agreed to all of the terms set forth by our compliance program. A UDS is needed to verify patient's compliance with our office pain contract. This is ordered based off specific treatments related to chronic pain with the potential to abuse certain medications. Patient has been instructed to contact the clinic with any concerns before the next appointment. Dr. Martel has reviewed this note and agrees with this plan of care. This note was dictated using voice recognition software and make contain errors or omissions.
[2024-09-07 11:25] VITALS: BP 139/63; PULSE 84; RESP 18; O2SAT 98; BMI 29.9
== END 2024-09-07 23:59 | disposition home or self-care (01) ==
PROVIDERS: PCP Family Medicine; Visit Provider Nurse Practitioner Family
DX: M51.16 Intervertebral disc disorders with radiculopathy, lumbar region (principal); Z79.899 Other long term (current) drug therapy
CPT/HCPCS: 99212; G0463

== ENCOUNTER 2024-09-08 08:52 | Outpatient (CLI) | payer MEDICARE, BC, SELFPAY ==
[2024-09-08 13:51] LABS: PHA INR Fingerstick 2.9 (0.9-1.1)
== END 2024-09-08 23:59 | disposition home or self-care (01) ==
LOC: ACC 08:53
PROVIDERS: PCP Family Medicine; Visit Provider Family Medicine
DX: Z79.01 Long term (current) use of anticoagulants (principal); I48.91 Unspecified atrial fibrillation
CPT/HCPCS: 85610; 99211; G0463

== ENCOUNTER 2024-10-09 11:20 | Outpatient (POV) | payer MEDICARE, BC, SELFPAY ==
--- NOTE | 2024-10-09 11:58 | EXP.PAIN.SOA ---
[facility] Disclaimer: The information contained in this section may have been updated after the patient was seen, as this information can be updated by other users. Medical History Trismus Cheek mass Hyperlipidemia Hypertension Atrial fibrillation History of COPD Asthma History of pacemaker COPD (chronic obstructive pulmonary disease) Obstructive sleep apnea syndrome Allergic rhinitis, unspecified Pulmonary emphysema Dyspnea on exertion Surgical History History of colonoscopy History of breast lump removal History of hernia surgery History of cholecystectomy Family History Other Asthma Diabetes Family history of pacemaker Heart attack Hypertension Lung cancer Social History Smoking Status: Never smoker alcohol intake: current substance use type: denies use current occupational status: other Travel in the last 8 weeks?: None household members: spouse housing: apartment current occupational exposures/hazards: No caffeine: No PM Subjective & Objective Subjective Subjective:: Patient is a pleasant 73-year-old male who presents today for his medication refill. He rates his pain today an 8 out of 10. He denies any new changes from our last appointment. Patient is currently managed with Alma 7.5 mg 5 times a day, Lyrica 100 mg 3 times a day and compounded cream. He denies any side effects or changes to his pharmacy. His Nicolas has been reviewed and is appropriate. Review of Systems: General: No recent weight changes, no fever, no sleep disturbances Respiratory: No cough, no shortness of air, no recurring pulmonary infections Cardiovascular/peripheral vascular: No chest pain, no palpitations, no edema, no shortness of breath Gastrointestinal: No new onset incontinence, normal bowel movements reported Genitourinary: No new onset incontinence Musculoskeletal: Chronic back pain Psychiatric: [Normal mood/affect] Neurological: [Denies weakness in extremities], [denies balance issues] Pain at rest (0-10 scale): 8 Objective Objective:: Physical Exam: General: Alert and oriented x3, no acute distress, pleasant and cooperative Lungs: Respirations even and unlabored, symmetrical chest expansion Eyes: PERRL Musculoskeletal: Flexion and extension of lumbar [spine] somewhat guarded secondary to pain, [antalgic gait noted] Neurological: Speech clear, no gross sensory deficit Has patient had previous pain injection?: No Conservative treatment options previously tried: Prescription medications Length of treatment: Longer than 12 weeks Meds Home Medications and Allergies Home Medications ?Medication ?Instructions ?Recorded ?Confirmed ?Type aspirin 81 mg tablet,delayed 81 mg PO DAILY Blood thinner 02/22/18 09/07/24 History release fenofibrate micronized 134 mg 145 mg PO DAILY Cholesterol 02/22/18 09/07/24 History capsule omeprazole 20 mg capsule,delayed 20 mg PO DAILY GERD 02/22/18 09/07/24 History release tamsulosin 0.4 mg capsule 0.4 mg PO HS bladder 02/22/18 09/07/24 History tizanidine 4 mg capsule 4 mg PO DAILY muscle relaxer 02/22/18 09/07/24 History chlorthalidone 25 mg tablet 25 mg PO DAILY HTN 03/11/20 09/07/24 History losartan 100 mg tablet 100 mg PO DAILY HTN 03/11/20 09/07/24 History potassium chloride 10 mEq 10 meq PO DAILY supp. 03/11/20 09/07/24 History capsule,extended release rosuvastatin 40 mg tablet 40 mg PO DAILY Cholesterol 06/11/20 09/07/24 History glimepiride 2 mg tablet 2 mg PO DAILY Diabetes 05/12/21 09/07/24 History warfarin 5 mg tablet See Rx Instructions .Route 12/11/21 09/07/24 History .COMPLEX Blood thinner fluticasone propionate 50 1 spray intranasal DAILY ALLERGIES 01/18/23 09/07/24 History mcg/actuation nasal spray,suspension (Flonase Allergy Relief) montelukast 10 mg tablet 10 mg PO DAILY ALLERGIES 01/18/23 09/07/24 History (Singulair) budesonide-formoterol HFA 160 2 puff inhalation BID 90 days 04/12/23 09/07/24 Rx mcg-4.5 mcg/actuation aerosol #10.2 grams inhaler (Symbicort) carvedilol 6.25 mg tablet 6.25 mg PO DIRECTED BLOOD 07/27/23 09/07/24 History PRESSURE albuterol sulfate 90 mcg/actuation See Rx Instructions .Route 09/28/23 09/07/24 Rx aerosol inhaler .COMPLEX #8.5 grams amlodipine 10 mg tablet 10 mg PO DIRECTED BLOOD PRESSURE 02/21/24 09/07/24 History azelastine 137 mcg (0.1 %) nasal 1 spray intranasal DIRECTED . 02/21/24 09/07/24 History spray dapagliflozin propanediol 10 mg 10 mg PO DIRECTED Diabetes 02/21/24 09/07/24 History tablet (Farxiga) metformin 500 mg tablet,extended 500 mg PO DAILY Diabetes 02/29/24 09/07/24 History release 24 hr tizanidine 4 mg tablet 4 mg PO DIRECTED Pain 02/29/24 09/07/24 History hydrocodone 7.5 mg-acetaminophen 1 tab PO 5XDAY #150 tabs 09/07/24 Rx 325 mg tablet pregabalin 100 mg capsule 100 mg PO TID Pain #90 caps 09/07/24 Rx New Prescriptions to Start Prescriptions: Allergies Allergy/AdvReac Type Severity Reaction Status Date / Time levofloxacin Allergy Intermediate SWELLING Verified 04/03/24 09:42 AT SITE OF INJECTION Assessment and Plan *Assessment and plan (1) Lumbar radiculopathy: Status: Acute Category: Medical Code(s): M54.16 - Radiculopathy, lumbar region (2) Degenerative disc disease, lumbar: Status: Acute Qualifiers: Disc-related pain type: discogenic back pain and lower extremity pain Qualified Code(s): M51.362 - Other intervertebral disc degeneration, lumbar region with discogenic back pain and lower extremity pain Category: Medical Code(s): M51.369 - Other intervertebral disc degeneration, lumbar region without mention of lumbar back pain or lower extremity pain Plan I will refill his Alma and Lyrica and provide a 1 month supply of this medication. Patient will return to clinic in 1 month for reevaluation of symptoms and plan of care. Risks and benefits of the medication have been explained in detail to the patient. The patient does understand the risk of dependence on the medication when given over a prolonged period. Patient has been advised of risks of oversedation with the prescribed medication. Narcan has been offered to the paitent in the event of oversedation. Patient has been advised that a family member should also be educated regarding administration of Narcan. The patient has been advised to consult with his/her primary care provider and pharmacist regarding drug-drug interaction of medications currently prescribed. Patient has been prescribed a controlled substance after being counseled on the medication, medication safety, and possible side effects. Opioid contract was reviewed and signed by the patient, and that they have agreed to all of the terms set forth by our compliance program. A UDS is needed to verify patient's compliance with our office pain contract. This is ordered based off specific treatments related to chronic pain with the potential to abuse certain medications. Patient has been instructed to contact the clinic with any concerns before the next appointment. Dr. Martel has reviewed this note and agrees with this plan of care. This note was dictated using voice recognition software and make contain errors or omissions. End
[2024-10-09 12:09] VITALS: BP 140/68; PULSE 72; RESP 18; O2SAT 99; BMI 29.8
== END 2024-10-09 23:59 | disposition home or self-care (01) ==
PROVIDERS: PCP Family Medicine; Visit Provider Nurse Practitioner Family
DX: M51.16 Intervertebral disc disorders with radiculopathy, lumbar region (principal); Z79.891 Long term (current) use of opiate analgesic; Z79.899 Other long term (current) drug therapy
CPT/HCPCS: 99212; G0463

== ENCOUNTER 2024-10-27 09:25 | Outpatient (CLI) | payer MEDICARE, BC, SELFPAY ==
--- OUTSIDE RECORDS SUMMARY | 2024-03-07 05:00 | XMS_ITS ---
Author Organization [facility] Address [address] [place] [id number] Care Team Providers Care Navy Airspace Officer Name Role Phone Santino Pisano Primary Care Provider Richardson Kuhn [phone] Allergies Allergen (clinical drug ingredient) Drug/Non Drug [...] 30 Performing Lab: Notes/Report: Test performed by [facility], [place] [address] [facility] , [address], [place] [address] Ketan Zmaora MD, Signal And Communications Maintainer CLIA: [id number] Sodium 142 135-145 mmol/L Potassium 4.0 3.5-5.3 [...] 32 Performing Lab: Notes/Report: Test performed by [facility], [address] , [address], [place] [address] Ketan Zamora MD, Signal And Communications Maintainer CLIA: [id number] Cholesterol 105 <200 mg/dL Triglycerides 181 <150 [...] Interpretation:Normal Performing Lab: Notes/Report: Test performed by [facility], [address] , [facility], [place] [address] Ketan Zamora MD, Signal And Communications Maintainer CLIA: [id number] PSA 1.16 <4.00 ng/mL Please note this [...] MG TAKE 1 CAPSULE BY MOUTH ONCE DAILY for 30 Active Rosuvastatin Calcium 40 MG 1/2 tab(s) orally once a day per Dr Lovett 06/04/2020 Active metFORMIN HCl ER 500 MG 2 TABLETS Orally twice a day for 30 days Active Azelastine HCl 137 MCG/SPRAY 2 spray(s) intranasally 2 times a day Active Tamsulosin HCl 0.4 MG TAKE 1 CAPSULE BY MOUTH ONCE DAILY for 30 days Active DIABETIC SHOES DIRECTED DIRECTED [...] MCG/SPRAY 1 spray(s) intranasally 2-4 times a day for 30 day(s) 11/22/2019 Active Fluticasone Propionate 50 MCG/ACT 2 spray(s) intranasally once a day 07/05/2015 Active Cetirizine HCl 10 MG 1 tab(s) orally onc e a day Active CPAP Supplies - as directed as directed 09/03/2023 Active Farxiga 10 MG 1 tablet Orally Once a day for 30 day(s) Active Albuterol Sulfate HFA 108 (90 Base) MCG/ACT 2 puff(s) inhaled every 6 hours for 30 day(s) Active Montelukast Sodium 10 MG 1 tablet Orally Once a day Active Aspirin 81 81MG DIRECTED QD Active tiZANidine HCl 4 MG TAKE 1 TABLET BY MOUTH AT BEDTIME for 30 days Active Potassium Chloride ER 10 MEQ TAKE 1 CAPSULE BY MOUTH ONCE DAILY for 30 Active Warfarin Sodium 5 MG TAKE 2 TABLETS BY MOUTH ONCE DAILY for 30 days Active Glimepiride 2 MG 1 tab(s) orally 2 times a day for 30 days Active Immunizations Vaccine Route Administration Date Status Comme nts Fluzone High Dose (65yr and older) IM Intramuscular 03/07/2024 Administered Problems Problem Type SNOMED Code ICD Code Onset Dates Problem Status W/U Status Risk Notes Problem Hyperlipidemia due to type 2 diabetes mellitus (disorder) (209615104699262) Hyperlipidemia associated with type 2 diabetes mellitus (E11.69) Active confirmed Problem Diabetes mellitu s with hyperglycemia (E11.65) Active confirmed Vital Signs Blood pressure systolic 126 mm Hg 03/07/20 24 Blood pressure diastolic 62 mm Hg 024 Heart Rate 76 /min 03/07/2024 Height 74 in 03/07/2024 Weight 236.8 lbs 03/07/2024 BMI 30.40 kg/m2 03/07/2024 Encounters Encounter Location Date Provider Diagnosis [place] [address] [facility] 36 [facility] [address] [place] [id number] 03/07/2024 Richardson Kuhn Hyperlipidemia associated with type [...] Base) MCG/ACT 2 puff(s) inhaled every 6 hours for 30 day(s) Montelukast Sodium 10 MG 1 tablet Orally Once a day Treatment Notes Assessment Notes Trismus Continue f/u with EN T Next Appt Details Follow Up: 6 Months, Reason: Provider Name:Santino Jiménez er, 12/22/2024 10:00:00 AM, [address] [facility] 36 [facility], [address], [place], [id number], Provider Name:Richardson Dixon, 03/15/2025 09:00:00 AM, [address], [address], [place], [place], [phone], Progress Notes * RAFAELA SKINNERDOB:1950 (73 yo M)Acc No.[id number]:03/07/2024 Progress Notes Patient: RAFAELA BRITT Provider: Richardson Kuhn M.D. :1950 A ge:73 Y S ex:Male Date:03/07/2024 Address:[facility] [place], [id number] Pcp:Santino Pisano Subjective: * Chief Complaints: * 1 . 6 Month Check Up. 2. Needs laabs with PSA & flu vaccine. * HPI: C ardiology: Pt presents today for a 6 month check up. Needs refill on Montelukast and Albuterol. Pt would like this flu shot today. Pt is fasting today. He continues to follow with the Coumadin clinic at [facility] for monitoring his INR. E NT/respiratory: [...] * Hospitalization/Major Diagno stic Procedure: V ertigo- [facility] ER 10/2016, Elevated Blood Sugar- [facility] ER 05/2020. * Family History: F [...] C ardiology: General Appearance: p leasant, NAD. HEENT: T rismus noted. He is only able to open his incisors to about a centimeter. There is tenderness over the right masseter muscle. No obvious mass.. Heart sounds: I rregularly irregular. Murmur, click , gallop: n one. Lungs: c lear, no rales or wheezes. Extremities: n o leg edema. Assessment: * Assessment: [...] * Procedure Codes: 9 4760 [place], [address] CAPILLARY BLOOD DRAW, [address] GLYCATED HEMOGLOBIN TEST, Modifiers: QW * Follow Up: 6 Months * Billing Information: * Visit Code: 39547 Office Visit, Est Pt., Level 4. * Procedure Codes: [address] [place]. [address] CAPILLARY BLOOD DRAW. 489[address] GLYCATED HEMOGLOBIN TEST. Modifiers: QW * Electronic signature of Richardson Kuhn MD on 10/27/2024 at 09:29 AM EDT Sign off status: Pending * Provider: Richardson Kuhn M.D. Date: Generated for Garry andrews/Jacob/Liana on: 0 10/27/2024 09:29 AM EDT History and Physical Notes * HPI (History of Present Illness) Category Sub-Category Detail Notes Category Not es Cardiology He continues to follow with the Coumadin clinic at [facility] for monitoring his INR Examination Category [...]
--- OUTSIDE RECORDS SUMMARY | 2024-08-15 09:45 | XMS_ITS ---
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 Automatic Name Role Phone Santino Pisano Primary Care Provider [phone] Richardson Kuhn [phone] Allergies Allergen (clinical drug ingredient) Drug/Non Drug [...] dose same next check 1 week with [facility] Coumadin Clinic REASON FOR VISIT Discharge F/U from [facility] Medications Medication SIG (Take, Route, Frequency, Duration) Notes Start Date End Date Status Potassium Chloride ER 10 MEQ TAKE 1 CAPSULE BY MOUTH ONCE DAILY for 30 Active Fenofibrate Micronized 134 MG TAKE 1 CAPSULE BY MOUTH ONCE DAILY for 30 Active tiZANidine HCl 4 MG TAKE 1 TABLET BY MOUTH AT BEDTIME for 30 Active Warfarin Sodium 5 MG TAKE 2 TABLETS BY MOUTH ONCE DAILY for 30 Active Glimepiride 2 MG TAKE 1 TABLET BY MOUTH TWICE DAILY for 30 Active Albuterol Sulfate HFA 108 (90 Base) MCG/ACT 2 puff(s) inhaled every 6 hours for 30 day(s) Active Montelukast Sodium 10 MG 1 tablet Orally Once a day Active metFORMIN HCl ER 500 MG TAKE 2 TABLETS B Y MOUTH TWICE DAILY for 30 Active Azelastine HCl 137 MCG/SPRAY SHAKE WELL AND INHALE 2 SPRAY(S) INTRANASALLY 2 TIMES A DAY DIRECTED for 30 Active Tamsulosin HCl 0.4 MG TAKE 1 CAPSULE BY MOUTH ONCE DAILY for 30 days Active Chlorthalidone 25 MG 1 tab(s) orally onc e a day Active Cozaar 100 MG 1 tab(s) orally once a day Active Rosuvastatin Calcium 40 MG 1/2 tab(s) orally once a day per Dr Lovett 06/04/2020 Active CPAP Supplies - as directed as directed 09/03/2023 Active Farxiga 10 MG 1 tablet Orally Once a day for 30 day(s) Active Betamethasone Dipropionate Aug 0.05 [...] Problem COPD - Chronic obstructive pulmonary disease (74749711) COPD (chronic obstructive pulmonary disease) (J44.9) Active confirmed Problem 09689685 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 confirmed Problem 020978993 BMI 30.0-30.9,adult (Z68.30) Active confirmed Vital Signs Blood pressure systolic 126 mm Hg 08/16/19 25 Blood pressure diastolic 60 mm Hg 025 Heart Rate 79 /min 08/15/2024 Height 74 in 08/15/2024 Weight 237.6 lbs 08/15/2024 BMI 30.5 kg/m2 08/15/2024 Encounters Encounter Location Date Provider Diagnosis [place] [address] [place], [place] [phone] 08/15/2024 Richardson Kuhn Acute renal failure N17.9 [...] his appointment with the Coumadin clinic at [facility] next week 08/15/2024 Essential hypertension (ICD-10 - [...] his appointment with the Coumadin clinic at [facility] next week Next Appt Details Follow Up: 3 Months, Reason: Provider Name:Santino Jiménez er, 12/22/2024 10:00:00 AM, [address], [address], [place], [phone], Provider Name:Richardson Lindsey et, 03/15/2025 09:00:00 AM, [address], [address], [place], [id number], Progress Notes * RAFAELA SKINNERDOB:1950 (73 yo M)Acc No.[id number]:08/15/2024 Progress Notes Patient: RAFAELA BRITT Provider: Richardson Kuhn M.D. :1950 A ge:73 Y S ex:Male Date:08/15/2024 Address:[facility] [place], [id number] Pcp:Santino Pisano Subjective: * Chief Complaints: * 1 . Discharge F/U from [facility]. * HPI: H PI: He comes in today for follow-up on recent hospitalization at [facility] for C. difficile colitis, dehydration, and acute renal failure. He apparently had ongoing diarrhea at home for several days and became weak and fell striking his head. This prompted a visit to the [facility] ER. CT scan of the head was negative for intracranial bleeding but he was found to be dehydrated and acute renal failure with creatinine of 5 and supratherapeutic INR. He was then transferred to [facility] for nephrology consultation. I have reviewed available records from [place]. Stool studies confirmed the diagnosis of C. [...] * Hospitalization/Major Diagno stic Procedure: V ertigo- [facility] ER 10/2016, Elevated Blood Sugar- [facility] ER 05/2020. * Family History: F ather: [...] G eneral Examination: General Appearance: N AD. Oral cavity: M ucous membranes moist. Heart: irregularly irregular rhythm. Lungs: c lear to auscultation. Extremities: E xam of the feet show no obvious deformity.? No ulcerations or calluses. Distal pulses are [...] circulatory complications - E11.59 1 0. B [place] 30.0-30.9,adult - Z68.30 Plan: * Treatment: * Labs: * L ab: PT/INR (in house) (Collection Date & Time - 08/15/2024) Value Reference Range P T 3.1 * I NR 36.7 * c urrent dose 7.5mg M,F; 10 mg AOD * n ew dose same * n ext check 1 week with [facility] Coumadin Clinic * Dilcia Proctor 08/15/2024 02:05 :26 PM > Provider reviewed results while patient in office. * Procedure Codes: G 2211 Complex e/[place], [address] PROTHROMBIN TIME, Modifiers: QW , 45970 CAPILLARY BLOOD DRAW, G0145 MOST RECENT SYSTOLIC BP < 140MM HG, G8754 MOST RECENT DIASTOLIC BP < 90MM HG * Follow Up: 3 Months * Billing Information: * Visit Code: 21767 Office Visit, Est Pt., Level 4. * Procedure Codes: G2211 Complex e/[place]. [address] PROTHROMBIN TIME. Modifiers: QW 65090 CAPILLARY BLOOD DRAW. G8752 MOST RECENT SYSTOLIC BP < 140MM HG. G8754 MOST RECENT DIASTOLIC BP < 90MM HG. * Electronic signature of Richardson Kuhn MD on 10/27/2024 at 09:29 AM EDT Sign off status: Pending * Provider: Richardson Kuhn M.D. Date: 0 08/15/2024 Generated for Garry andrews/Jacob/Tanaitting on: 0 10/27/2024 09:29 AM EDT History [...]
--- OUTSIDE RECORDS SUMMARY | 2024-09-12 05:00 | XMS_ITS ---
Author Organization [facility] Address [address] [place] [id number] Care Team Providers Care General Office Assistant Name Role Phone Santino Pisano Primary Care Provider Richardson Kuhn [phone] Allergies Allergen (clinical drug ingredient) Drug/Non Drug [...] Interpretation: Performing Lab: Notes/Report: Test performed by [facility] [address] [place] [address] , [address], [place] [address] Ketan Zamora MD, Certified Appliance Service Technician CLIA: [id number] Sodium 139 135-145 mmol/L Potassium 4.0 3.5-5.3 [...] Interpretation: Performing Lab: Notes/Report: Test performed by [facility], [facility] [address] [place] [address] , [address], [place] [address] Ketan Zamora MD, Certified Appliance Service Technician CLIA: [id number] Cholesterol 107 <200 mg/dL Triglycerides 178 <150 [...] Interpretation: Performing Lab: Notes/Report: Test performed by [facility], [address] , [facility], [place] [address] Ketan Zamora MD, Certified Appliance Service Technician CLIA: [id number] Albumin/Creatinine Ratio, Urine 6 0-30 ug/m g [...] a day for 30 day(s) 11/22/2019 Active Meclizine HCl 12.5 MG 1 tab(s) orally 3 times a day prn 06/28/2019 Active HYDROcodone-Acetaminoph en 7.5-325 MG 1 tab(s) orally bid Active Farxiga 10 MG TAKE 1 TABLET BY MOUTH ONCE DAILY for 30 Active metFORMIN HCl ER 500 MG 2 tab(s) Orally Two times a day for 30 days Active Aspirin 81 81MG [...] BY MOUTH ONCE DAILY for 30 Active Tamsulosin HCl 0.4 MG TAKE 1 CAPSULE BY MOUTH ONCE DAILY for 30 days Active Azelastine HCl 137 MCG/SPRAY SHAKE WELL AND INHALE 2 SPRAY(S) INTRANASALLY 2 TIMES A DAY DIRECTED for 30 Active Glimepiride 2 MG TAKE 1 TABLET BY MOUTH TWICE DAILY for 30 Active Montelukast Sodium 10 MG 1 tablet Orally Once a day Active Albuterol Sulfate HFA 108 (90 Base) MCG/ACT 2 puff(s) inhaled every 6 hours for 30 day(s) Active CPAP Supplies - as directed as directed 09/03/2023 Active Vital Signs Blood pressure systolic 122 mm Hg 09/13/19 25 Blood pressure diastolic 68 mm Hg 025 Heart Rate 74 /min 09/12/2024 Height 74 in 09/12/2024 Weight 239.8 lbs 09/12/2024 BMI 30.79 kg/m2 09/12/2024 Encounters Encounter Location Date Provider Diagnosis [facility] [facility] [address] [facility] [address] [place] [id number] 09/12/2024 Richardson Kuhn Hyperlipidemia associated with type [...] 12/22/2024 10:00:00 AM, [address] [facility], [address], [place], [id number], Provider Name:Richardson Dixon, 03/15/2025 09:00:00 AM, [address] [facility], [address], [place], [place], [id number], Progress Notes * RAFAELA SKINNERDOB:1950 (73 yo M)Acc No.[id number]:09/12/2024 Progress Notes Patient: Bro CASIMIRO RAFAELA HOLLIDAY Provider: Richardson Kuhn M.D. :1950 A ge:73 Y S ex:Male Date:09/12/2024 Address:[id number] Pcp:Santino Pisano Subjective: * Chief Complaints: * 1 . 6 months. 2. Needs labs. * HPI: C ardiology: The patient is here today for a check up. Pt states he is doing well and denies any new concerns. Pt states he is fasting. Pt states his last INR was on Wednesday at [facility] and it was 2.9. Denies : [...] * Hospitalization/Major Diagno stic Procedure: V ertigo- [facility] ER 10/2016, Elevated Blood Sugar- [facility] ER 05/2020. * Family History: F [...] General Appearance: N AD, affect good. . HEENT: sclera and conjunctiva clear, PERRLA, TM's normal, translucent. Carotid upstroke: n ormal,no bruits. . Heart sounds: r egular rhythm, Gr 1/6 systolic murmur. Murmur, click , gallop: n one. Lungs: c lear, no rales or wheezes. Abdomen: p ositive BS, soft, nontender. Extremities: n o leg edema. Decreased distal pulses in feet. Decreased sensation on soles of feet. Assessment: * Assessment: 1. H yperlipidemia associated with type 2 diabetes mellitus - E11.69 (Primary) 2 . D iabetes mellitus with hyperglycemia - E11.65 3 . A -fib - I48.91 ? 4 . S tatus cardiac pacemaker - Z95.0 5 . B HI 30.0-30.9,adult - Z68.30 Plan: * Treatment: Value [...] G 2211 Complex e/[place], [address] GLYCATED HEMOGLOBIN TEST, Modifiers: QW , 3051F HG A1C>EQUAL 7.0%<8.0%, G8752 MOST RECENT SYSTOLIC BP < 140MM HG, G8754 MOST RECENT DIASTOLIC BP < 90MM HG * Follow Up: 6 Months * Billing Information: * Visit Code: 72627 Office Visit, Est Pt., Level 4. * Procedure Codes: G2211 Complex e/[place]. [address] GLYCATED HEMOGLOBIN TEST. Modifiers: QW 3051F HG A1C>EQUAL 7.0%<8.0%. G8752 MOST RECENT SYSTOLIC BP < 140MM HG. G8754 MOST RECENT DIASTOLIC BP < 90MM HG. * Electronic signature of Richardson Kuhn MD on 10/27/2024 at 09:29 AM EDT Sign off status: Pending * Provider: Richardson Kuhn M.D. Date: 0 09/12/2024 Generated for Printi ng/Jaimeeg/eTransmitting on: 0 10/27/2024 09:29 AM EDT History [...]
--- OUTSIDE RECORDS SUMMARY | 2024-10-27 09:29 | XMS_ITS | Clinical Summary ---
Author Organization [facility] Address [address] [place] [address] Care Team Providers Care Electrician Telephone Name Role Phone Francisco Kuhn MD Primary Care Provider [phone] Medications methocarbamol (Robaxin) 750 MG tablet Take 1 tablet (750 mg) by mouth 3 (three) times a day. 90 tablet 05/23/2024 Active meloxicam (Mobic) 7.5 MG tablet Take 1 tablet (7.5 mg) by mouth 1 (one) time each day. 90 tablet 05/23/2024 Active Social History Tobacco Use Types Packs/Day Years Used Date Smoking Tobacco: Never Assessed Sex and Gender Information Value Date Recorded Sex Assigned at Not on file Legal Sex Male 6:18 PM EDT Gender Identity Not on file Sexual Orientation Not on file Last Filed Vital Signs Vital Sign Reading Time Taken Comments Blood Pressure 145/66 07/04/2024 2:44 PM EST Pulse 70 07/04/2024 2:44 PM EST Temperature 36.6 C (97.8 F) 02/14/2019 9:01 AM EDT Respiratory Rate 16 02/14/2019 9:01 AM EDT Oxygen Saturation - - Inhaled Oxygen Concentration - - Weight 104 kg (230 lb) 05/23/2024 3:43 PM EST Height 190.5 cm (6' 3 ) 05/23/2024 3:43 PM EST Body Mass Index 28.75 05/23/2024 3:43 PM EST Plan of Treatment Health Maintenance Due Date Last Done Comments Dental Oral Exam 1950 Dental Prophylaxis 1950 Dental X-Ray: Bitewings 1950 Dental X-Ray: Full Mouth 1950 [facility]-Depression Screening 1950 [facility]-Hepatitis C Screening 1950 [facility]-Medicare Annual Wellness (AWV) 1950 [facility]-Infant/Child/Adol SDOH Screenings 1950 [facility]- SDOH Screenings 1970 [facility]-Adult SDOH Screenings 1970 [facility]-DTaP,Tdap,and Td Vaccines (1 - Tdap) 10/30/1971 CT Colonography 1997 Colonoscopy 1997 FIT-DNA 1997 FIT 1997 FOBT 1997 Sigmoidoscopy 1997 [facility]-Colorectal Cancer Screening 1997 [facility]-Zoster Vaccines (1 of 2) 2002 [id number] Vaccine ( - 2023- season) 2024 [facility]-Influenza Vaccine (Season Ended) 2025 03/06/2022, 02/28/2021, 02/19/2020, Additional history exists [facility]-RSV Vaccine: 60+ Years or (1 - 1-dose 75+ series) 10/30/2027 [facility]-Hepatitis A Vaccines Aged Out 11/06/2018, 04/10 No longer eligible based on patient's age to complete this topic [facility]-Pneumococcal Vaccine: 50+ Years Completed 05/26/2019, 05/24/2018 [facility]-Obesity Intervention Completed 07/04/2024 HPV Vaccines Aged Out No longer eligi ble based on patient's age to complete this topic [facility]-HIB Vaccines Aged Out No longer e ligible based on patient's age to complete this topic [facility]-IPV Vaccines Aged Out No longer e ligible based on patient's age to complete this topic [facility]-Rotavirus Vaccines Aged Out No lo nger eligible based on patient's age to complete this topic Insurance [employer] [id number] [place] [address] ANTHEM Care Teams Electrician Telephone Relationship Specialty Start Date End Date Francisco Kuhn MD [address] [place] [address] PCP - General 09/20/20
--- OUTSIDE RECORDS SUMMARY | 2024-10-27 09:31 | XMS_ITS | Data Portability ---
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 Plan of Treatment Reminders Order Date Submit Date Provider Last Modified By Organization Details Last Modified Time Details Appointments None recorded. Lab None recorded. Referral ENT surgery referral 2023 [facility], [address], [place], [address], 10:58:57 Procedures None recorded. Surgeries None recorded. Imaging CT, head + neck, w/o contrast - CT HEAD/NECK 2023 [facility] ([facility] [address], [place], [address], 15:44:01 Medication Orders clindamycin HCl 300 mg capsule [address] [facility], [address], [address], [place], [address], 16:27:43 Patient TargetsNo targets recorded. Patient InstructionsNo instructions recorded. Reason for Referral ENT Surgery Referral for Acu te pain in face swelling to rt face- appointment 02/20 at 4 pm Referring Physician: Tam Samayoa, Family Medicine, Encounter Date: 02/14/2024 Results Created Date Observation Date Name Description Value Unit Range Abnormal Flag Note LastModifiedBy Organization Detail LastModifiedTime 02/18/20 24 02/18/2024 CT, head + neck, w/o contr ast No observ ation record ed. [facility] [address], [place], [address], 02/21/2024 14:47:07 02/22/20 24 02/18/2024 CT, head + neck, w/o contr ast No observ ation record ed. [facility] [address], [place], [address], 02/22/2024 11:49:21 Result Notes None recorded. Problems Name Problem SNOMED Code Status Onset Date Resolution Date Notes Provider Name and Address Organization Details Recorded Time Hypertensive disorder 73737741 Active Saida Nicholson null, [place] - [facility] 15:28:13 Type 2 diabetes mellitus 42956957 Active Saida Nich[place] null, [place] - [facility] 15:28:23 Atrial fibrillation 23757889 Active Saida Nich[place] null, [place] - [facility] 15:28:46 Hyperlipidemi a 89521792 Active Saida Nich[place] null, [place] - [facility] 15:30:13 Chronic obstructive pulmonary disease 28532442 Active Saida [place], [place] - [facility] 15:30:42 Sleep apnea 90304547 Active Saida Nich[place] null, [place] - [facility] 15:30:53 Large prostate 562327004 Active Saida Nich[place] null, [place] - [facility] 15:31:14 Disseminated idiopathic skeletal hyperostosis 40116544 Active Saida Nicholson null, [place] - [facility] 15:31:47 Problem Notes None recorded. Procedures Surgical History Date Name Laterality Status Provider Name and Address Organization Details Recorded Time Pacemaker Placement completed Saida Nicholson [place] - [facility] 02/14/2024 15:20:02 Stress test completed Saida Nicholson [place] - [facility] 02/14/2024 15:20:02 Cardiac Cath completed Saida Nicholson [place] - [facility] 02/14/2024 15:20:02 Colonoscopy completed Saida Nicholson [place] - [facility] 02/14/2024 15:20:02 Hernia Repair completed Saida CORONEL - [facility] 02/14/2024 15:20:02 Sinus Surgery completed Saida [facility]ONEL - [facility] 02/14/2024 15:20:02 Imaging Results None recorded. Procedure Notes None recorded. Medical Equipment None Reported. Medications Name Sig Start Date Stop Date Status Note LastModified by Organization Details LastModified Time blood pressu solution kit active Not Available Not Available Not Available amoxicillin 500 mg capsule 02/13 completed Not Available Not Available Not Available potassium chloride ER 10 mEq capsule,ext ended release Take 1 capsule every day by oral route for 30 days. active Not Available Not Available No t Available carvedilol 6.25 mg tablet Take 1 tablet twice a day by oral route for 30 days. active Not Available Not Available No t Available clindamycin HCl 300 mg capsule Take 1 capsule twice a day by oral route for 7 days. active Not Available Not Available No t Available tizanidine 4 mg tablet Take 1 tablet every day by oral route for 30 days. active Not Available Not Available No t Available chlorthalid one 25 mg tablet Take 1 tablet every day by oral route for 30 days. active Not Available Not Available No t Available glimepiride 2 mg tablet Take 1 tablet every day by oral route for 30 days. active Not Available Not Available No t Available fenofibrate micronized 134 mg capsule Take 1 capsule every day by oral route for 30 days. active Not Available Not Available No t Available tamsulosin 0.4 mg capsule Take 1 capsule every day by oral route for 30 days. active Not Available Not Available No t Available amlodipine 10 mg tablet Take 1 tablet every day by oral route for 30 days. active Not Available Not Available No t Available hydrocodone 7.5 mg-acetamin ophen 325 mg tablet Take 1 tablet 5 times a day by oral route for 30 days. active Not Available Not Available No t Available warfarin 5 mg tablet Take 1 tablet twice a day by oral route for 30 days. active Not Available Not Available No t Available Advair Diskus 250 mcg-50 mcg/dose powder for inhalation 02/13 completed Not Available Not Available Not Available montelukast 10 mg tablet Take 1 tablet every day by oral route for 30 days. active Not Available Not Available No t Available azelastine 137 mcg (0.1 %) nasal spray [place] 1 spray every day by nasal route for 30 days. active Not Available Not Available No t Available methylpredn isolone 4 mg tablets in a dose pack active Not Available Not Available Not Available albuterol sulfate HFA 90 mcg/actuati on aerosol inhaler Inhale 2 puffs 3 times a day by inhalatio n route as needed for 25 days. active Not Available Not Available No t Available losartan 100 mg tablet Take 1 tablet every day by oral route for 30 days. active Not Available Not Available No t Available metformin ER 500 mg tablet,exte nded release 24 hr Take 2 tablets twice a day by oral route for 30 days. active Not Available Not Available No t Available rosuvastati n 20 mg tablet Take 1 tablet every day by oral route. active Not Available Not Available No t Available pregabalin 100 mg capsule Take 1 capsule 3 times a day by oral route for 30 days. active Not Available Not Available No t Available Symbicort 160 mcg-4.5 mcg/actuati on HFA aerosol inhaler Inhale by inhalatio n route for 30 days. 02/13 completed Not Available Not Available Not Available Farxiga 10 mg tablet Take 1 tablet every day by oral route for 30 days. active Not Available Not Available No t Available Farxiga 5 mg tablet 02/13 completed Not Available Not Available Not Available Clenpiq 10 mg-3.5 gram-12 gram/175 mL oral solution 02/13 completed Not Available Not Available Not Available Vitals Date Recorded Body weight Body mass index (BMI) Body height Body temperature Heart rate Oxygen saturation Oxygen saturation in Arterial blood by Pulse oximetry Respiratory rate Systolic blood pressure Diastolic blood pressure Provider Name and Address Organization Details Last Updated DateTime 4 449120. 78 g 29.8 kg/m2 190.5 cm 98.1 [degF] 72 /min 96 % 96 % 18 /min 138 mm[Hg] 72 mm[Hg] Saida Nicholson [place] - [facility] 15:19:01 Social History Question Answer Notes LastModified by Organizat ion Details LastModified Time Tobacco Smoking Status Former Smoker Saida rocha, [place] - [facility] 02/14/2024 15:19:54 Do You Have An Advance Directive? No levi Information not available 02/14/2024 Is Blood Transfusion Acceptable In An Emergency? Yes Information not available 02/14/2024 What Is Your Level Of Caffeine Consumption? Occasional Information not available 02/14/2024 In The 14 Days Before Symptom Onset, Have You Had Close Contact With A Laboratory-confir med COVID-19 While That Case Was Ill? No Information not available 02/14/2024 In The 14 Days Before Symptom Onset, Have You Had Close Contact With A Person Who Is Under Investigation For COVID-19 While That Person Was Ill? No Information not available 02/14/2024 Have You Been To An Area Known To Be High Risk For COVID-19? No Information not available 02/14/2024 Are You Deaf Or Do You Have Serious Difficulty Hearing? No Information not available 02/14/2024 Have You Processed Blood Or Body Fluids From An Ebola Virus Disease Patient Without Appropriate PPE? No Information not available 02/14/2024 Do You Reside In Or Have You Traveled To An Area Where Ebola Virus Transmission Is Active? No Information not available 02/14/2024 What Is The Highest Grade Or Level Of School You Have Completed Or The Highest Degree You Have Received? [id number] Information not available 02/14/2024 When Did You Quit Smoking? 16+yearssincel astcigarette Information not available 02/14/2024 Have You Recently Or Are You Planning To Travel To An Area With Zika Virus? No Information not available 02/14/2024 What Was The Date Of Your Most Recent Tobacco Screening? 02/14/2024 Information not available 02/14/2024 Do You Use Protection Against STDs? No Information not available 02/14/2024 What Is Your Relationship Status? Information not available 02/14/2024 Do You Use Your Seat Belt Or Car Seat Routinely? Yes Information not available 02/14/2024 Are You Sexually Active? No Information not available 02/14/2024 Do You Have Smoke And Carbon Monoxide Detectors In Your Home? Yes Information not available 02/14/2024 At What Age Did You Start Smoking Tobacco? 15 Information not available 02/14/2024 Are You Passively Exposed To Smoke? No Information no t available 02/14/2024 Do You Use Sunscreen Routinely? No Information not available 02/14/2024 Sex: Male Functional Status Question Answer Note LastModified by Organizat ion Details LastModified Time How many times per week do you consume alcohol? 1-2 times per week Information not available 02/14/2024 Do you use any illicit or recreational drugs? No Information not available 02/14/2024 What is your level of alcohol consumption? Occasional Information not available 02/14/2024 Are you currently employed? No Information not available 02/14/2024 Are you able to care for yourself? Yes Information not available 02/14/2024 Do you or have you ever used e-cigarettes or vape? Never used electronic cigarettes Information not available 02/14/2024 What is your exercise level? Occasional Information not available 02/14/2024 Mental Status Question Answer Note LastModified by Organization D etails LastModified Time Do you feel stressed (tense, restless, nervous, or anxious, or unable to sleep at night)? [id number] Information not available 02/14/2024 Family History Relationship Description Onset Age of this Age Resolved Age Notes LastModified by Organization Details LastModified Time Unspecified Relation Hypercholest erolemia cbuckler Not available 2023 15:19:36 Unspecified Relation Chronic obstructive pulmonary disease cbuckler Not available 2023 15:19:36 Unspecified Relation Asthma cbuckler Not available 02/14/20 15:19:36 Unspecified Relation Hypertensive disorder cbuckler Not available 2023 15:19:36 Unspecified Relation Heart disease cbuckler Not available 2023 15:19:36 Unspecified Relation Diabetes mellitus cbuckler Not available 2023 15:19:36 Medical History Condition Response Atrial Fibrillation Y COPD Y Hypercholesterolemia Y Heart Problems Y Diabetes Y Degenerative Disc Disease Y Sleep Apnea Y Heart Disease Y Hypertension Y Past Encounters Encounter ID Performer Location Encounter Start Date Encounter Closed Date Diagnosis/Indication Diagnosis SNOMED-CT Code Diagnosis ICD10 Code Diagnosis Note [id number] Tam Samayoa APRN [address] [place] [address] 02/14/2024 14:53:48 02/14/2024 16:22:08 Acute pain in face 041865901 R51.9 spoke with ent they will see pt would like ct head and neck prior to visit Dental abscess 526010333 K04.7 Health Concerns Section Related Observation LastModified by Organization Detai ls LastModified Time None Recorded Concern Status LastModified by Organization Details LastModified Time None Recorded Advance Directives Directive N: Payers Insurance Date Sequence Insurance Name Policy Number Policy Gibson Covered Member ID Gibson Member ID Guarantor Name 02/14/2024 2 [place] [id number] Rafaela Skinner [id number] Rafaela Skinner 02/22/2024 [employer] [id number] Rafaela Skinner [id number] Rafaela Skinner 02/14/2024 1 [place] Rafaela Skinner [id number] Rafaela Skinner 02/22/2024 2 [place] (INDEMN[place]) [id number] Rafaela Skinner [id number] Rafaela Skinner Notes Date Note Type Note Provider Name and Address Organization Details Recorded Time 02/14/2024 text/html 73 yr old male presents for right sided facial swelling and pain. He is unable to open his mouth very far. He had a lower back tooth pulled on 01/12. He has been treated with a z pack and amoxicillin. He is using a mouth wash daily that he is unsure of the name of it. pt states his rt side of his face is swollen,sore and tight. Pt states he has followed up twice with dentist and they cant find a problem Tam Samayoa, GEOTECH[employer]ICIAN [address], [place], [address], [place] - [facility] 02/14/2024 16:22:37
--- OUTSIDE RECORDS SUMMARY | 2024-10-27 09:31 | XMS_ITS | Patient Health Record ---
[facility] [address] [facility] [address] [place] [id number] Care Team Providers Care Nurse Practitioner Name Role Phone Santino Pisano Primary Care Provider Richardson Kuhn [phone] Allergies Allergen (clinical drug ingredient) Drug/Non Drug [...] 30 Performing Lab: Notes/Report: Test performed by [facility] , [address], [place] [address] Ketan Zamora MD, [employer] CLIA: [id number] Sodium 142 135-145 mmol/L Potassium 4.0 3.5-5.3 [...] 32 Performing Lab: Notes/Report: Test performed by [facility], [address] , [address], [place] [address] Ketan Zamora MD, [employer] CLIA: [id number] Cholesterol 105 <200 mg/dL Triglycerides 181 <150 [...] ATPIII guidelines LDL/HDL Ratio 1.1 <3.3 Ratio _ LDL Cholesterol Patient History _ Test Date: 03/04/2023 LDL Results: 37 Units: mg/dL % Change: -7% - Test Date: 09/03/2023 LDL Results: 31 Units: mg/dL % Change: -16% - Test Date: 03/07/2024 LDL Results: 37 Units: mg/dL % Change: +19% _ P-PSA Reviewed date:03/12/2024 09:01:45 PM Interpretation:Normal Performing Lab: Notes/Report: Test performed by [facility], [address] , [place] [address] Ketan Zamora MD, [employer] CLIA: [id number] PSA 1.16 <4.00 ng/mL Please note this is an ultrasensitive PSA assay with a lower limit of detection of 0.014 ng/mL. This test is performed by the Agustina ECLIA methodology. Values obtained with different assay methods or kits cannot be directly compared. PT/INR (in house) Reviewed date:08/16/2024 10:37:55 PM Interpretation: Performing Lab: Notes/Report: PT 3.1 INR 36.7 current dose 7.5mg M,F; 10 mg AOD new dose same next check 1 week with [facility] Cou[facility] Glycohemoglobin A1c (in hous e) Reviewed date:09/13/2024 10:29:03 PM Interpretation:7.6% Performing Lab: Notes/Report: 7.6% glycohemoglobin 7.6% 5 - 6.5 % P-Comprehensive Metabolic Pa guicho (CMP) Reviewed date:09/13/2024 10:37:03 PM Interpretation: Performing Lab: Notes/Report: Test performed by [facility] [address] [place] [address] [address] Nava C, [place] [address] Ketan Zamora MD, [employer] CLIA: [id number] Sodium 139 135-145 mmol/L Potassium 4.0 3.5-5.3 [...] Interpretation: Performing Lab: Notes/Report: Test performed by [facility] [address] [place] [address] [address]ava C, [place] [address] Ketan Zamora MD, [employer] CLIA: [id number] Cholesterol 107 <200 mg/dL Triglycerides 178 <150 [...] ATPIII guidelines LDL/HDL Ratio 1.5 <3.3 Ratio _ LDL Cholesterol Patient History _ Test Date: 09/03/2023 LDL Results: 31 Units: mg/dL % Change: -16% - Test Date: 03/07/2024 LDL Results: 37 Units: mg/dL % Change: +19% - Test Date: 09/12/2024 LDL Results: 42 Units: mg/dL % Change: +13% _ P-Microalbumin/Creatinine, R andom Urine Sample Reviewed date:09/13/2024 10:37:03 PM Interpretation: Performing Lab: Notes/Report: Test performed by [facility] [address] [place] [address] , [place] [address] Ketan Zamora MD, [employer] CLIA: [id number] Albumin/Creatinine Ratio, Urine 6 0-30 ug/mg Microalbumin, Urine, Random 0.4 Creatinine, Urine 61.7 H-INR Reviewed date:01/28/2024 02:30:44 PM Interpretation: Performing [...] SYSTEMIC EMBOLISM SECONDARY TO AMI H-INR Reviewed date:03/03/2024 10:10:29 AM Interpretation: Performing [...] SYSTEMIC EMBOLISM SECONDARY TO AMI H-INR Reviewed date:05/04/2024 11:38:18 AM Interpretation: Performing Lab: Notes/Report: POCINRFS 3.3 0.9-1.1 Results sent to: Francisco Kuhn MD Pharmacist recommendation for Warfarin therapy is: PATIENT INR 3.3 TODAY VIA FINGERSTICK. WARFARIN DOSE WAS REDUCED LAST VISIT BY 5 MG WEEKLY WHEN INR WAS 3.2. PATIENT STILL EXPERIENCING DIFFICULTY WITH TOOTH. PATIENT HAS HAD MULTIPLE ROUNDS OF ABX AND STEROIDS. RECOMMENDED PATIENT TAKE WARFARIN 5 MG DAILY X3 DAYS THEN RESUME 7.5 MG ON WED/WED; 10 MG ON WED/WED/WED/TISHA/SAT. WILL FOLLOW UP ON 05/15/24 IN CLINIC. FOR DETAILED INFORMATION-PLEASE REVIEW PROGRESS NOTE IN THE ASSESSMENTS AND ANTICOAGULATION CLINIC SECTION ANTICOAGULATION CLINIC IN PCI/CLINICAL REVIEW INDICATION INR RANGE THERAPY FOR DVT, PE, ATRIAL FIB; 2.0 - 3.0 PROPHYLAXIS FOR VTE THERAPY FOR MECHANICAL HEART 2.5 - 3.5 VALVE; PREVENTION OF SYSTEMIC EMBOLISM SECONDARY TO AMI H-INR Reviewed date:09/10/2024 01:27:52 PM Interpretation: Performing Lab: Notes/Report: POCINRFS 2.9 0.9-1.1 Results sent to: Francisco Kuhn MD Pharmacist recommendation for Warfarin therapy is: PATIENT INR 2.9 TODAY VIA FINGERSTICK. RECOMMENDED PATIENT CONTINUE WITH WARFARIN 7.5 MG ON WED/WED/WED; 10 MG ON WED/WED/TISHA/SAT. FOR DETAILED INFORMATION-PLEASE REVIEW PROGRESS NOTE IN THE ASSESSMENTS AND ANTICOAGULATION CLINIC SECTION ANTICOAGULATION CLINIC IN PCI/CLINICAL REVIEW INDICATION INR RANGE THERAPY FOR DVT, PE, ATRIAL FIB; 2.0 - 3.0 PROPHYLAXIS FOR VTE THERAPY FOR MECHANICAL HEART 2.5 - 3.5 VALVE; PREVENTION OF SYSTEMIC EMBOLISM SECONDARY TO AMI H-INR Reviewed date:11/05/2023 02:58:22 PM Interpretation: Performing Lab: Notes/Report: POCINRFS 2.9 0.9-1.1 Results sent to: Frnacisco Kuhn MD Pharmacist recommendation for Warfarin therapy [...] SYSTEMIC EMBOLISM SECONDARY TO AMI H-INR Reviewed date:05/19/2024 12:56:26 PM Interpretation: Performing Lab: Notes/Report: POCINRFS 3.0 0.9-1.1 Results sent to: Francisco Kuhn MD Pharmacist recommendation for Warfarin therapy is: PATIENT INR 3.0 TODAY VIA FINGERSTICK. RECOMMENDED PATIENT FURTHER DECREASE DOSE OF WARFARIN BY 2.5 MG WEEKLY TO WARFARIN 7.5 MG ON MON/WED/FRI; 10 MG ON WED/WED/TISHA/SAT. PATIENT IS STILL EXPERIENCE ISSUE WITH TOOTH AND DIETARY INTAKE IS DOWN. FOR DETAILED INFORMATION-PLEASE REVIEW PROGRESS NOTE IN THE ASSESSMENTS AND ANTICOAGULATION CLINIC SECTION ANTICOAGULATION CLINIC IN PCI/CLINICAL REVIEW INDICATION INR RANGE THERAPY FOR DVT, PE, ATRIAL FIB; 2.0 - 3.0 PROPHYLAXIS FOR VTE THERAPY FOR MECHANICAL HEART 2.5 - 3.5 VALVE; PREVENTION OF SYSTEMIC EMBOLISM SECONDARY TO AMI H-INR Reviewed date:04/03/2024 07:35:49 PM Interpretation: Performing Lab: Notes/Report: POCINRFS 3.2 0.9-1.1 Results sent to: Francisco Kuhn MD Pharmacist recommendation for Warfarin therapy is: PATIENT INR 3.2 TODAY VIA FINGERSTICK. RECOMMENDED PATIENT REDUCE WEEKLY DOSE BY 5 MG TO WARFARIN 7.5 MG ON MON/FRI; 10 MG ON SUN/TUE/WED/TISHA/SAT. PATIENT INDICATED HE HAS NOT BEEN TO ABLE TO EAT DUE PROBLEMS WITH CHEWING FOOD. DIETARY INTAKE HAS DECREASED OVER THE LAST MONTH OR TWO. FOR DETAILED INFORMATION-PLEASE REVIEW PROGRESS NOTE IN THE ASSESSMENTS AND ANTICOAGULATION CLINIC SECTION ANTICOAGULATION CLINIC IN PCI/CLINICAL REVIEW INDICATION INR RANGE THERAPY FOR DVT, PE, ATRIAL FIB; 2.0 - 3.0 PROPHYLAXIS FOR VTE THERAPY FOR MECHANICAL HEART 2.5 - 3.5 VALVE; PREVENTION OF SYSTEMIC EMBOLISM SECONDARY TO AMI H-INR Reviewed date:06/19/2024 10:08:13 AM Interpretation: Performing Lab: Notes/Report: POCINRFS 2.5 0.9-1.1 Results sent to: Francisco Kuhn MD Pharmacist recommendation for Warfarin therapy is: PATIENT INR 2.5 TODAY VIA FINGERSTICK. RECOMMENDED PATIENT CONTINUE WITH WARFARIN 7.5 MG ON MON/WED/FRI; 10 MG ON SUN/TUE/TISHA/SAT. WILL FOLLOW UP IN 6 WEEKS. FOR DETAILED INFORMATION-PLEASE REVIEW PROGRESS NOTE IN THE ASSESSMENTS AND ANTICOAGULATION CLINIC SECTION ANTICOAGULATION CLINIC IN PCI/CLINICAL REVIEW INDICATION INR RANGE THERAPY FOR DVT, PE, ATRIAL FIB; 2.0 - 3.0 PROPHYLAXIS FOR VTE THERAPY FOR MECHANICAL HEART 2.5 - 3.5 VALVE; PREVENTION OF SYSTEMIC EMBOLISM SECONDARY TO AMI H-INR Reviewed date:07/30/2024 12:14:47 PM Interpretation: Performing Lab: Notes/Report: POCINRFS 2.0 0.9-1.1 Results sent to: Francisco Kuhn MD Pharmacist recommendation for Warfarin therapy is: PATIENT INR 2.0 TODAY VIA FINGERSTICK. RECOMMENDED PATIENT CONTINUE WITH WARFARIN 7.5 MG ON MON/WED/FRI; 10 MG ON SUN/TUE/TISHA/SAT. FOR DETAILED INFORMATION-PLEASE REVIEW PROGRESS NOTE IN THE ASSESSMENTS AND ANTICOAGULATION CLINIC SECTION ANTICOAGULATION CLINIC IN PCI/CLINICAL REVIEW INDICATION INR RANGE THERAPY FOR DVT, PE, ATRIAL FIB; 2.0 - 3.0 PROPHYLAXIS FOR VTE THERAPY FOR MECHANICAL HEART 2.5 - 3.5 VALVE; PREVENTION OF SYSTEMIC EMBOLISM SECONDARY TO AMI Medications Medication SIG (Take, Route, Frequency, Duration) Notes Start Date End Date Status Montelukast Sodium 10 MG 1 tablet Orally Once a day for 90 days Active Tamsulosin HCl 0.4 MG TAKE 1 CAPSULE BY MOUTH ONCE DAILY for 30 days Active Albuterol Sulfate HFA 108 (90 Base) MCG/ACT 2 puff(s) inhaled every 6 hours for 30 day(s) Active Rosuvastatin Calcium 40 MG 1/2 tab(s) orally once a day per Dr Lovett 06/04/2020 Active Aspirin 81 81MG DIRECTED QD Active Azelastine HCl 137 MCG/SPRAY SHAKE WELL AND INHALE 2 SPRAY(S) INTRANASALLY 2 TIMES A DAY DIRECTED for 30 Active Fluticasone Propionate 50 MCG/ACT 2 spray(s) intranasally once a day 07/05/2015 Active Astepro 205.5 MCG/SPRAY 1 spray(s) intranasally 2-4 times a day for 30 day(s) 11/22/2019 Active tiZANidine HCl 4 MG 1 tablet at bedtime as needed Orally Once a day for 90 days Active Meclizine HCl 12.5 MG 1 tab(s) orally 3 times a day prn 06/28/2019 Active HYDROcodone-Acetaminop hen 7.5-325 MG 1 tab(s) orally bid Active Warfarin Sodium 5 MG 2 tab(s) Orally Onc e a day for 90 days Active Glimepiride 2 MG 1 tab(s) Orally Two times a day for 90 days Active CPAP Supplies - as directed as directed diagnosis codes: G47.33, J44.9 09/03/2023 Active metFORMIN HCl ER 500 MG TAKE 2 TAB(S) BY MOUTH TWO TIMES A DAY for 30 Active Magnesium Oxide 400 MG 1 tab(s) orally o nce a day Active Symbicort 160-4.5 MCG/ACT INHALE 2 PUFFS BY MOUTH 2 TIMES A DAY (RINSE MOUTH AFTER USE) Active Pregabalin 75 MG 1 cap(s) orally once daily Active Farxiga 10 MG TAKE 1 TABLET BY MOUTH ONCE DAILY for 30 Active Carvedilol 6.25 MG 1 tablet with food Orally Twice a day Active DIABETIC SHOES DIRECTED DIRECTED 09/03/2022 Active Dicyclomine HCl 10 MG 1 cap(s) orally Tw o times a day 07/28/2022 Active Betamethasone Dipropionate Aug 0.05 % 1 adela applied topically 2 times a day 01/29/2022 Active Potassium Chloride ER 10 MEQ TAKE 1 CAPSULE BY MOUTH ONCE DAILY for 30 Active Cozaar 100 MG 1 tab(s) orally once a day Active Chlorthalidone 25 MG 1 tab(s) orally onc e a day Active Fenofibrate Micronized 134 MG TAKE 1 CAPSULE BY MOUTH ONCE DAILY for 30 Active amLODIPine Besylate 5 MG 1 tab(s) orally once a day Active Immunizations Vaccine Route Administration Date Status Comme nts Flublok IM Intramuscular 05/24/2018 Administered Fluzone High Dose (65yr and older) IM Intramuscular 02/19/2020 Administered Fluzone High Dose (65yr and older) IM Intramuscular 02/28/2021 Administered Fluzone High Dose (65yr and older) IM Intramuscular 03/06/2022 Administered Fluzone High Dose (65yr and older) IM Intramuscular 03/07/2024 Administered Fluzone Quad (6months&older) IM Intramuscular 03/04/2023 Administered Hepatitis A (adult) Unknown 05/01/2018 Administered Hepatitis A (adult) IM Intramuscular 11/06/2018 Administer ed PNEUMOVAX 23 VACCINE IM Intramuscular 05/26/2019 Administe red Prevnar (PCV13) IM Intramuscular 05/24/2018 Administered Problems Problem Type SNOMED Code ICD Code Onset Dates Problem Status W/U Status Risk Notes Problem 90880052 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 confirmed Problem 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 with INR goal of 2.0-3.0 (Z79.01) Active confirmed Problem COPD - Chronic obstructive pulmonary disease (28753752) COPD (chronic obstructive pulmonary disease) (J44.9) Active confirmed Problem 59704275 Essential hypertension (I10) Active confirmed Problem Seasonal allergy (472873472) Seasonal allergies (J30.2) Active confirmed Problem 983400828 BMI 30.0-30.9,adult (Z68.30) Active confirmed Problem 80179756 Other chronic pain (G89.29) Active confirmed Problem Hyperlipidemia due to type 2 diabetes mellitus (disorder) (781432052380342) Hyperlipidemia associated with type 2 diabetes mellitus (E11.69) Active confirmed Problem 36364618 Degenerative dis c disease, cervical (M50.30) Active confirmed Problem 803990360 Status cardiac pacemaker (Z95.0) Active confirmed Problem 7661390846343 Tinnitus of both ears (H93.13) Active confirmed Problem 86109494 Degenerative dis c disease, thoracic (M51.34) Active confirmed Problem Irritable bowel syndrome (34083408) Irritable bowel syndrome (K58.9) Active confirmed Problem 599803957 Mild intermitten t asthma without complication (J45.20) Active confirmed Problem Hyperglycemia due to type 2 diabetes mellitus (641231755198257) Diabetes mellitus with hyperglycemia (E11.65) Active confirmed Problem 42972163 GREG (obstructive sleep apnea) (G47.33) Active confirmed Problem Body mass index 30.00 to 34.99 (959776712435061) BMI 31.0-31.9,adult (Z68.31) Active confirmed Problem 342774345 Dyslipidemia (E78.5) Active confirmed Problem 63565101 Seasonal allergi c rhinitis due to pollen (J30.1) Active confirmed Problem 748648905 Type 2 diabetes mellitus without complication, without long-term current use of insulin (E11.9) Active confirmed Problem 824885968 Bilateral caroti d artery 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) Active confirmed Problem 413710202 Benign prostatic hyperplasia with lower urinary tract symptoms (N40.1) Active confirmed Problem 78218515 Diffuse idiopathic skeletal hyperostosis (M48.10) Active confirmed Problem 401047830 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 [address] [place] [id number] 03/07/2024 Richardson Kuhn Hyperlipidemia associated with type 2 diabetes mellitus E11.69 ; Diabetes mellitus with hyperglycemia E11.65 ; Screening for prostate cancer Z12.5 ; Trismus R25.2 and Encounter for immunization Z23 [facility] [address] [facility] [address] [place] [id number] 08/15/2024 Richardson Martinezfleet Acute renal failure N17.9 ; C. difficile [...] circulatory complications E11.59 and BMI 30.0-30.9,adult Z68.30 [facility] [address] [facility] [address], [place] [id number] 09/12/2024 R [facility] [place] Hyperlipidemia associated with type 2 diabetes mellitus E11.69 ; Diabetes mellitus with hyperglycemia E11.65 ; A-fib I48.91 ; Status cardiac pacemaker Z95.0 and BMI 30.0-30.9,adult Z68.30 [facility] [address], [place] [id number] 02/08/2024 Santino Pisano GREG (obstructive sle ep apnea) G47.33 [facility] [address], [place] [id number] 03/12/2024 Richardson Kuhn [facility] [address] [place], [place] [id number] 03/28/2024 Santino Pisano [facility] [address] [place], [place] [id number] 09/12/2024 Santino Pisano GREG (obstructive sle ep apnea) G47.33 [facility] [address] [place], [place] [id number] 09/13/2024 Santino Pisano Assessments Encounter Date Diagnosis (ICD Code) Assessment Notes Treatment Notes Treatment Clinical Notes Section Notes 02/08/2024 GREG (obstructive sleep apnea) (ICD-10 - G47.33) 03/07/2024 Hyperlipidemia associated with type 2 diabetes mellitus (ICD-10 - E11.69) 03/07/2024 Diabetes mellitus with hyperglycemia (ICD-10 - E11.65) 08/15/2024 Acute renal failure (ICD-10 - N17.9) ----resolved 08/15/2024 C. difficile colitis (ICD-10 - A04.72) ----resolved 09/12/2024 Hyperlipidemia associated with type 2 diabetes mellitus (ICD-10 - E11.69) 09/12/2024 Diabetes mellitus with hyperglycemia (ICD-10 - E11.65) 09/12/2024 GREG (obstructive sleep apnea) (ICD-10 - G47.33) 09/12/2024 A-fib (ICD-10 - I48.91) 08/15/2024 Type 2 diabetes mellitus without complication, without long-term current use of insulin (ICD-10 - E11.9) 03/07/2024 Screening for prostate cancer (ICD-10 - Z12.5) 03/07/2024 Trismus (ICD-10 - R25.2) Continue f/u with ENT 08/15/2024 Chronic atrial fibrillation (ICD-10 - I48.20) INR is mildly supratherapeuti c. He is instructed to decrease his Coumadin dose by half for the next 2 days and keep his appointment with the Coumadin clinic at [facility] next week 09/12/2024 Status cardiac pacemaker (ICD-10 - Z95.0) 09/12/2024 BMI 30.0-30.9,adult (ICD-10 - Z68.30) 08/15/2024 Essential hypertension (ICD-10 - I10) 03/07/2024 Encounter for immunization (ICD-10 - Z23) 08/15/2024 Dyslipidemia (ICD-10 - E78.5) 08/15/2024 COPD (chronic obstructive pulmonary disease) (ICD-10 - J44.9) 08/15/2024 Hyperlipidemia associated with type 2 diabetes mellitus (ICD-10 - E11.69) 08/15/2024 Type 2 diabetes mellitus with other circulatory complications (ICD-10 - E11.59) 08/15/2024 BMI 30.0-30.9,adult (ICD-10 - Z68.30) Plan Of Treatment Pending Test Test Name Order Date X ray : Foot, left 10/11/2020 Next Appt Details Provider Name:Santino jain, 12/22/2024 10:00:00 AM, [address], [address], [place], [place], [id number], Provider Name:Richardson Lindsey apollo, 03/15/2025 09:00:00 AM, [address], [address], [place], [id number], Insurance Providers Payer Name Payer Address Payer Phone Subscriber Number Group Number Insured Name Patient Relationship to Insured Coverage Start Date Coverage End Date MEDICARE PART B [address] [address] [place] [address] [phone] [id number] RAFAELA SKINNER Self - patient is the insured [employer] [address] [place] [address] [phone] [id number] RAFAELA SKINNER Self - patient is the insured Medications Administered Medication Instructions Date of Administration Dosage Notes Dexamethasone 05/06/2005 1 mL Dexamethasone 05/26/2007 1 mL Dexamethasone 03/07/2013 1 mL Dexamethasone 08/28/2014 1 mL Medical (General) History Medical History History ICD Code CHRONIC AF [...] L carotid arterie s Type 2 DM COPD Surgical History Surgery Date(Month/Year) Hiatal Hernia Repair Pacemaker 2003 LT Breast Mass Removal, Benign 12/2005 Colonoscopy, 6 Polyps Removed, Dr. Thomason ns 02/2012; 05/2016 EGD/ Dr. Velasquez/ Tamez's esophagus Cholecystectomy 03/2012 Cardiac Pacemaker Changed 12/08/2012 Pacemaker Generator Replacement 03/23/20 22 Colonoscopy/ Allran/ tubular adenoma/ 2 yr f/u 06/18/23 Hospitalization History Reason Date(Month/Year) Elevated Blood Sugar- [facility] ER 05/2020 Vertigo- [facility] ER 10/2016
[2024-10-27 10:47] LABS: PHA INR Fingerstick 2.9 (0.9-1.1)
== END 2024-10-27 10:49 ==
LOC: ACC 09:27
PROVIDERS: PCP Family Medicine; Visit Provider Family Medicine
DX: I48.91 Unspecified atrial fibrillation (principal); Z79.01 Long term (current) use of anticoagulants
CPT/HCPCS: 85610; 99211; G0463

== ENCOUNTER 2024-11-08 08:57 | Outpatient (POV) | payer MEDICARE, BC, SELFPAY ==
--- OUTSIDE RECORDS SUMMARY | 2024-03-07 05:00 | XMS_ITS ---
Author Organization [facility] Address [address] [place] [id number] Care Team Providers Care Mineral Ore Processing Labourer Name Role Phone Santino Pisano Primary Care Provider Richardson Kuhn [phone] Allergies Allergen (clinical drug ingredient) Drug/Non Drug [...] 30 Performing Lab: Notes/Report: Test performed by [employer], [employer] [address] [facility] , [address], [place] [address] Ketan Zamora MD, Health Social Work Professor CLIA: [id number] Sodium 142 135-145 mmol/L Potassium 4.0 3.5-5.3 [...] 32 Performing Lab: Notes/Report: Test performed by [facility], [address] , [address], [place] [address] Ketan Zamora MD, Health Social Work Professor CLIA: [id number] Cholesterol 105 <200 mg/dL Triglycerides 181 <150 [...] Interpretation:Normal Performing Lab: Notes/Report: Test performed by [employer], [address] , [facility], [place] [address] Ketan Zamora MD, Health Social Work Professor CLIA: [id number] PSA 1.16 <4.00 ng/mL Please note this [...] due to type 2 diabetes mellitus (disorder) ([id number]) Hyperlipidemia associated with type 2 diabetes mellitus [...] Provider Diagnosis [place] [address] [facility] [address] [place], [place] [phone] 03/07/2024 Richardson Kuhn Hyperlipidemia associated with type [...] Jiménez er, 12/22/2024 10:00:00 AM, [address] [facility], [address], [place], [place], [id number], Provider Name:Richardson Snowden Césra et, 03/15/2025 09:00:00 AM, [address], [address], [place], [place], [phone], Progress Notes * RAFAELA SKINNERDOB:1950 (74 yo M)Acc No.[id number]:03/07/2024 Progress Notes Patient: RAFAELA BRITT Provider: Richardson Kuhn M.D. :1950 A ge:73 Y S ex:Male Date:03/07/2024 Address:[facility] [place], [id number] Pcp:Santino Pisano Subjective: * Chief Complaints: * 1 . 6 Month Check Up. 2. Needs laabs with PSA & flu vaccine. * HPI: C ardiology: Pt presents today for a 6 month check up. Needs refill on Montelukast and Albuterol. Pt would like this flu shot today. Pt is fasting today. He continues to follow with the Coumadin clinic at [facility] for monitoring his INR. E NT/respiratory: [...] * Hospitalization/Major Diagno stic Procedure: V ertigo- [facility] ER 10/2016, Elevated Blood Sugar- [facility] ER 05/2020. * Family History: F [...] * Procedure Codes: 9 [address]60 [place], [address] CAPILLARY BLOOD DRAW, [address] GLYCATED HEMOGLOBIN TEST, Modifiers: QW * Follow Up: 6 Months * Images: Billing Information: * Visit Code: 09212 Office Visit, Est Pt., Level 4. * Procedure Codes: [address] [place]. [address] CAPILLARY BLOOD DRAW. [address] GLYCATED HEMOGLOBIN TEST. Modifiers: QW * Electronic signature of Richardson Kuhn MD on 11/08/2024 at 09:02 AM EDT Sign off status: Pending * Provider: Richardson Kuhn M.D. Date: Generated for Calini ng/Faxing/eTransmitting on: 0 11/08/2024 09:02 AM EDT History and Physical Notes * HPI (History of Present Illness) Category Sub-Category Detail Notes Category Not es Cardiology He continues to follow with the Coumadin clinic at [facility] for monitoring his INR Examination Category [...]
--- OUTSIDE RECORDS SUMMARY | 2024-08-15 09:45 | XMS_ITS ---
Author Organization [facility] Address [address] [facility] [address] [place] [id number] Care Team Providers Care Research Manager Name Role Phone Santino Pisano Primary Care Provider Richardson Kuhn [phone] Allergies Allergen (clinical drug ingredient) Drug/Non Drug [...] dose same next check 1 week with [facility] Coumadin Clinic REASON FOR VISIT Discharge F/U from [facility] Medications Medication SIG (Take, Route, Frequency, Duration) [...] Problem COPD - Chronic obstructive pulmonary disease (62989612) COPD (chronic obstructive pulmonary disease) (J44.9) Active confirmed Problem 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 confirmed Problem Body mass index 30+ - obesity (103142379) BMI 30.0-30.9,adult (Z68.30) Active confirmed Vital Signs Weight 237.6 lbs 08/15/2024 Blood pressure systolic 126 mm Hg 08/16/19 25 Blood pressure diastolic 60 mm Hg 025 Heart Rate 79 /min 08/15/2024 Height 74 in 08/15/2024 BMI 30.5 kg/m2 08/15/2024 Encounters Encounter Location Date Provider Diagnosis [place] [address] [facility] [address] [place], [place] [id number] 08/15/2024 Richardson Kuhn Acute renal failure N17.9 [...] his appointment with the Coumadin clinic at [facility] next week 08/15/2024 Essential hypertension (ICD-10 [...] his appointment with the Coumadin clinic at [facility] next week Next Appt Details Follow Up: 3 Months, Reason: Provider Name:Santino Jiménez er, 12/22/2024 10:00:00 AM, [address], [address], [place], [place], [id number], Provider Name:Richardson Lindsey et, 03/15/2025 09:00:00 AM, [address], [address], [place], [place], [phone], Progress Notes * RAFAELA SKINNERDOB:1950 (74 yo M)Acc No.[id number]:08/15/2024 Progress Notes Patient: RAFAELA BRITTT Provider: Richardson Kuhn M.D. :1950 A ge:73 Y S ex:Male Date:08/15/2024 Address:[facility] [place], [id number] Pcp:Santino Pisano Subjective: * Chief Complaints: * 1 . Discharge F/U from [facility]. * HPI: H PI: He comes in today for follow-up on recent hospitalization at [facility] for C. difficile colitis, dehydration, and acute renal failure. He apparently had ongoing diarrhea at home for several days and became weak and fell striking his head. This prompted a visit to the [facility] ER. CT scan of the head was negative for intracranial bleeding but he was found to be dehydrated and acute renal failure with creatinine of 5 and supratherapeutic INR. He was then transferred to [facility] for nephrology consultation. I have reviewed available records from [place]. Stool studies confirmed the diagnosis of C. [...] * Hospitalization/Major Diagno stic Procedure: V ertigo- [facility] ER 10/2016, Elevated Blood Sugar- [facility] ER 05/2020. * Family History: F [...] circulatory complications - E11.59 1 0. B [place] 30.0-30.9,adult - Z68.30 Plan: * Treatment: * Labs: * L ab: PT/INR (in house) (Collection Date & Time - 08/15/2024) Value Reference Range P T 3.1 * I NR 36.7 * c urrent dose 7.5mg M,F; 10 mg AOD * n ew dose same * n ext check 1 week with [facility] Coumadin Clinic * Dilcia Proctor 08/15/2024 02:05 :26 PM > Provider reviewed results while patient in office. * Procedure Codes: G 2211 Complex e/[place], [address] PROTHROMBIN TIME, Modifiers: QW , 17392 CAPILLARY BLOOD DRAW, G8752 MOST RECENT SYSTOLIC BP < 140MM HG, G8754 MOST RECENT DIASTOLIC BP < 90MM HG * Follow Up: 3 Months * Images: Billing Information: * Visit Code: 55282 Office Visit, Est Pt., Level 4. * Procedure Codes: G2211 Complex e/[place]. [address] PROTHROMBIN TIME. Modifiers: QW 31082 CAPILLARY BLOOD DRAW. G8752 MOST RECENT SYSTOLIC BP < 140MM HG. G8754 MOST RECENT DIASTOLIC BP < 90MM HG. * Electronic signature of Richardson Kuhn MD on 11/08/2024 at 09:03 AM EDT Sign off status: Pending * Provider: Richardson Kuhn M.D. Date: 0 08/15/2024 Generated for Garry andrews/Jacob/Tanaitting on: 0 11/08/2024 09:03 AM EDT History and Physical Notes * [...]
--- OUTSIDE RECORDS SUMMARY | 2024-09-12 05:00 | XMS_ITS ---
Author Organization [facility] Address [address] [place] [phone] Care Team Providers Care Drier Belt Conveyor Name Role Phone Santino Pisano Primary Care Provider [phone] Richardson Kuhn [phone] Allergies Allergen (clinical drug ingredient) Drug/Non Drug [...] Interpretation: Performing Lab: Notes/Report: Test performed by [email or web address] [address] [place] [address] , [address], [place] [address] Ketan Zaomra MD, Slide Maker CLIA: [id number] Sodium 139 135-145 mmol/L Potassium 4.0 3.5-5.3 [...] Interpretation: Performing Lab: Notes/Report: Test performed by [facility], [facility] [address] [place] [address] , [address], [place] [address] Ketan Zamora MD, Slide Maker CLIA: [id number] Cholesterol 107 <200 mg/dL Triglycerides 178 <150 [...] Interpretation: Performing Lab: Notes/Report: Test performed by [facility], [address] , [facility], [place] [address] Ketan Zamora MD, Slide Maker CLIA: [id number] Albumin/Creatinine Ratio, Urine 6 0-30 ug/m g [...] directed as directed 09/03/2023 Active Vital Signs Weight 239.8 lbs 09/12/2024 Blood pressure systolic 122 mm Hg 09/13/19 25 Blood pressure diastolic 68 mm Hg 025 Heart Rate 74 /min 09/12/2024 Height 74 in 09/12/2024 BMI 30.79 kg/m2 09/12/2024 Encounters Encounter Location Date Provider Diagnosis [facility] [address] [place] [address] 36 [facility] [address] [place] [id number] 09/12/2024 Richardson Kuhn Hyperlipidemia associated with type [...] Name:Santino Jiménez er, 12/22/2024 10:00:00 AM, [address] [facility] 36 [facility], [address], [place], [phone], Provider Name:Richardson Lindsey et, 03/15/2025 09:00:00 AM, [address] [facility] 36 [facility], [address], [place], [phone], Progress Notes * RAFAELA SKINNERDOB:1950 (74 yo M)Acc No.[id number]:09/12/2024 Progress Notes Patient: Bro CASIMIRO RAFAELA HOLLIDAY Provider: Richardson Kuhn M.D. :1950 A ge:73 Y S ex:Male Date:09/12/2024 Address:[facility] [id number] Pcp:Santino Pisano Subjective: * Chief Complaints: * 1 . 6 months. 2. Needs labs. * HPI: C ardiology: The patient is here today for a check up. Pt states he is doing well and denies any new concerns. Pt states he is fasting. Pt states his last INR was on Wednesday at [facility] and it was 2.9. Denies : Chest [...] Diagno stic Procedure: V ertigo- [facility] ER 10/2016, Elevated Blood Sugar- [facility] ER 05/2020. * Family History: F ather: [...] not smoke. Alcohol: no. * Medications: T samirag Aspirin 81 81MG DIRECTED QD , Taking [...] cardiac pacemaker - Z95.0 5 . B WI 30.0-30.9,adult - Z68.30 Plan: * Treatment: Value [...] G 2211 Complex e/[place], [address] GLYCATED HEMOGLOBIN TEST, Modifiers: QW , 3051F HG A1C>EQUAL 7.0%<8.0%, G8752 MOST RECENT SYSTOLIC BP < 140MM HG, G8754 MOST RECENT DIASTOLIC BP < 90MM HG * Follow Up: 6 Months * Images: Billing Information: * Visit Code: 15706 Office Visit, Est Pt., Level 4. * Procedure Codes: G2211 Complex e/[place]. [address] GLYCATED HEMOGLOBIN TEST. Modifiers: QW 3051F HG A1C>EQUAL 7.0%<8.0%. G8752 MOST RECENT SYSTOLIC BP < 140MM HG. G8754 MOST RECENT DIASTOLIC BP < 90MM HG. * Electronic signature of Richardson Kuhn MD on 11/08/2024 at 09:03 AM EDT Sign off status: Pending * Provider: Richardson Kuhn M.D. Date: 09/12/2024 Generated for Calini juliana/Jacob/eTransmitting on: 0 11/08/2024 09:03 AM EDT History [...]
--- OUTSIDE RECORDS SUMMARY | 2024-11-08 09:03 | XMS_ITS | Clinical Summary ---
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 Name Role Phone Francisco Kuhn MD Primary Care Provider [phone] Medications methocarbamol (Robaxin) 750 MG tablet Take [...] Screening 1950 [facility]-Medicare Annual Wellness (AWV) 1950 [facility]-/Child/Adol SDOH Screenings 1952 [facility]- SDOH Screenings 1970 [facility]-Adult SDOH Screenings 1970 [facility]-DTaP,Tdap,and Td Vaccines (1 - Tdap) 10/30/1971 CT Colonography 1997 Colonoscopy 1997 FIT-DNA 1997 FIT 1997 FOBT 1997 Sigmoidoscopy 1997 [facility]-Colorectal Cancer Screening 1997 [facility]-Zoster Vaccines (1 of 2) 2002 [id number] Vaccine ( - 2023- season) 2024 [facility]-Influenza [...] to complete this topic Insurance [place] [id number] MEDICARE ANTHEM Care Teams Bobbin Cleaning Machine Operator Relationship Specialty Start Date End Date Francisco Kuhn MD [address] [place] [address] [place] [id number] PCP - General 09/20/20
--- OUTSIDE RECORDS SUMMARY | 2024-11-08 09:04 | XMS_ITS | Patient Health Record ---
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 Name Role Phone Santino Pisano Primary Care Provider [phone] Richardson Kuhn [phone] Allergies Allergen (clinical drug ingredient) Drug/Non Drug [...] 30 Performing Lab: Notes/Report: Test performed by [employer] [facility] , [address], [place] [address] Ketan Zamora MD, Nut Culler CLIA: [id number] Sodium 142 135-145 mmol/L Potassium 4.0 3.5-5.3 [...] 32 Performing Lab: Notes/Report: Test performed by [facility], [address] , [address], [place] [address] Ketan Zamora MD, Nut Culler CLIA: [id number] Cholesterol 105 <200 mg/dL Triglycerides 181 <150 [...] Interpretation:Normal Performing Lab: Notes/Report: Test performed by [facility], [address] , [place] [address] Ketan Zamora MD, Nut Culler CLIA: [id number] PSA 1.16 <4.00 ng/mL Please note this [...] dose same next check 1 week with [facility] Glycohemoglobin A1c (in hous e) Reviewed date:09/13/2024 10:29:03 PM Interpretation:7.6% Performing Lab: Notes/Report: 7.6% glycohemoglobin 7.6% 5 - 6.5 % P-Comprehensive Metabolic Pa guicho (CMP) Reviewed date:09/13/2024 10:37:03 PM Interpretation: Performing Lab: Notes/Report: Test performed by [employer] [address] [place] [address] Gerard Nava C, [place] [address] Ketan Zamora MD, Nut Culler CLIA: [id number] Sodium 139 135-145 mmol/L Potassium 4.0 3.5-5.3 [...] Interpretation: Performing Lab: Notes/Report: Test performed by [employer] [address] [place] [address] Gerard Nava C, [place] [address] Ketan Zamora MD, Nut Culler CLIA: [id number] Cholesterol 107 <200 mg/dL Triglycerides 178 <150 [...] Interpretation: Performing Lab: Notes/Report: Test performed by [facility] [address] [place] [address] , [place] [address] Ketan Zamora MD, Nut Culler CLIA: [id number] Albumin/Creatinine Ratio, Urine 6 0-30 ug/mg Microalbumin, Urine, Random 0.4 Creatinine, Urine 61.7 H-INR Reviewed date:12/17/2023 09:11:44 AM Interpretation: Performing [...] SYSTEMIC EMBOLISM SECONDARY TO AMI H-INR Reviewed date:2024 09:30:04 PM Interpretation: Performing Lab: Notes/Report: POCINRFS 2.9 0.9-1.1 Results sent to: Francisco Kuhn MD Pharmacist recommendation for Warfarin therapy is: PATIENT INR 2.9 TODAY VIA FINGERSTICK. RECOMMENDED PATIENT CONTINUE WITH WARFARIN 7.5 MG ON WED/WED/WED; 10 MG WED/WED/WED/WED. FOR DETAILED INFORMATION-PLEASE REVIEW PROGRESS NOTE IN [...] MG ON MON/WED/FRI; 10 MG ON SUN/TUE/TISHA/SAT. PATIENT IS STILL EXPERIENCE ISSUE WITH TOOTH [...] 7.5 MG ON MON/WED/FRI; 10 MG ON SUN/TUE/WED/SAT. FOR DETAILED INFORMATION-PLEASE REVIEW PROGRESS NOTE IN [...] 7.5 MG ON WED/WED; 10 MG ON WED/WED/WED/WED/WED. WILL FOLLOW UP ON 05/15/24 IN CLINIC. [...] 1 tablet Orally Once a day; Duration: 90 days Active Tamsulosin HCl 0.4 MG TAKE 1 CAPSULE BY MOUTH ONCE DAILY; Duration: 30 days Active Albuterol Sulfate HFA 108 (90 Base) MCG/ACT 2 puff(s) inhaled every 6 hours; Duration: 30 day(s) Active Rosuvastatin Calcium 40 MG 1/2 tab(s) orally once a day per Dr Lovett 06/04/2020 Active Aspirin 81 81MG DIRECTED QD Active Azelastine HCl 137 MCG/SPRAY SHAKE WELL AND INHALE 2 SPRAY(S) INTRANASALLY 2 TIMES A DAY DIRECTED; Duration: 30 Active Fluticasone Propionate 50 MCG/ACT 2 spray(s) intranasally once a day 07/05/2015 Active Astepro 205.5 MCG/SPRAY 1 spray(s) intranasally 2-4 times a day; Duration: 30 day(s) 11/22/2019 Active tiZANidine HCl 4 MG 1 tablet at bedtime as needed Orally Once a day; Duration: 90 days Active Meclizine HCl 12.5 MG 1 tab(s) orally 3 times a day prn 06/28/2019 Active HYDROcodone-Acetaminop hen 7.5-325 MG 1 tab(s) orally bid Active Warfarin Sodium 5 MG 2 tab(s) Orally Onc e a day; Duration: 90 days Active Glimepiride 2 MG 1 tab(s) Orally Two times a day; Duration: 90 days Active CPAP Supplies - as directed as directed diagnosis codes: G47.33, J44.9 09/03/2023 Active metFORMIN HCl ER 500 MG TAKE 2 TAB(S) BY MOUTH TWO TIMES A DAY; Duration: 30 Active Magnesium Oxide 400 MG 1 tab(s) orally o nce a day Active Symbicort 160-4.5 MCG/ACT INHALE 2 PUFFS BY MOUTH 2 TIMES A DAY (RINSE MOUTH AFTER USE) Active Pregabalin 75 MG 1 cap(s) orally once daily Active Farxiga 10 MG TAKE 1 TABLET BY MOUTH ONCE DAILY; Duration: 30 Active Carvedilol 6.25 MG 1 tablet [...] BY MOUTH ONCE DAILY; Duration: 30 Active Cozaar 100 MG 1 tab(s) orally once a day Active Chlorthalidone 25 MG 1 tab(s) orally onc e a day Active Fenofibrate Micronized 134 MG TAKE 1 CAPSULE BY MOUTH ONCE DAILY; Duration: 30 Active amLODIPine Besylate 5 MG 1 [...] Problem Status W/U Status Risk Notes Problem Peripheral circulatory disorder associated with diabetes mellitus (511854125) 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 confirmed Problem 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 with INR goal of 2.0-3.0 (Z79.01) Active confirmed Problem COPD - Chronic obstructive pulmonary disease (18394476) COPD (chronic obstructive pulmonary disease) (J44.9) Active confirmed Problem Essential hypertension (12718547) Essential hypertension (I10) Active confirmed Problem Seasonal allergy (646649975) Seasonal allergies (J30.2) Active confirmed Problem Body mass index 30+ - obesity (523945068) BMI 30.0-30.9,adult (Z68.30) Active confirmed Problem Chronic pain (10004110) Other chronic pain (G89.29) Active confirmed Problem Hyperlipidemia due to type 2 diabetes mellitus (disorder) (032369509463872) Hyperlipidemia associated with type 2 diabetes mellitus (E11.69) Active confirmed Problem Degeneration of cervical intervertebral disc (89456257) Degenerative disc disease, cervical (M50.30) Active confirmed Problem Cardiac pacemaker in situ (694543908) Status cardiac pacemaker (Z95.0) Active confirmed Problem Bilateral tinnitus (4302053448776) Tinnitus of both ears (H93.13) Active confirmed Problem Degeneration of thoracic intervertebral disc (07699502) Degenerative disc disease, thoracic (M51.34) Active confirmed Problem Irritable bowel syndrome (30414182) Irritable bowel syndrome (K58.9) Active confirmed Problem Mild intermittent asthma (233027586) Mild intermittent asthma without complication (J45.20) Active confirmed Problem Hyperglycemia due to type 2 diabetes mellitus (053456777072052) Diabetes mellitus with hyperglycemia (E11.65) Active confirmed Problem Obstructive sleep apnea syndrome (64938754) GREG (obstructive sleep apnea) (G47.33) Active confirmed Problem Body mass index 30.00 to 34.99 (448974571954561) BMI 31.0-31.9,adult (Z68.31) Active confirmed Problem Dyslipidemia (402913873) Dyslipidemia (E78.5) Active confirmed Problem Allergic rhinitis caused by pollen (03975939) Seasonal allergic rhinitis due to pollen (J30.1) Active confirmed Problem Type II diabetes mellitus without complication (003401303) Type 2 diabetes mellitus without complication, without long-term current use of insulin (E11.9) Active confirmed Problem Occlusion and stenosis of multiple and bilateral cerebral arteries (084570598) Bilateral carotid artery 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) Active confirmed Problem Lower urinary tract symptoms due to benign prostatic hypertrophy (88171331750281) Benign prostatic hyperplasia with lower urinary tract symptoms (N40.1) Active confirmed Problem Diffuse idiopathic skeletal hyperostosis (86449486) Diffuse idiopathic skeletal hyperostosis (M48.10) Active confirmed Problem Tamez's esophagus (895599470) 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) Active confirmed Problem Chronic atrial fibrillation (146111807) Chronic atrial fibrillation (I48.20) Active confirmed Vital Signs Heart Rate 74 /min 09/12/2024 Blood pressure diastolic 68 mm Hg 09/12/2024 Height 74 in 09/12/2024 Blood pressure systolic 122 mm Hg 09/12/2024 Weight 239.8 lbs 09/12/2024 BMI 30.79 kg/m2 09/12/2024 Encounters Encounter Location Date Provider Diagnosis [place] [address] [facility] [address] [place] [id number] 03/07/2024 R Sp Kuhn Hyperlipidemia associated with type 2 diabetes mellitus E11.69 ; Diabetes mellitus with hyperglycemia E11.65 ; Screening for prostate cancer Z12.5 ; Trismus R25.2 and Encounter for immunization Z23 [place] [address] [place] [id number] 08/15/2024 R Sp Kuhn Acute renal failure [...] circulatory complications E11.59 and BMI 30.0-30.9,adult Z68.30 [facility] [address] [place] [id number] 09/12/2024 R Sp Kuhn Hyperlipidemia associated with type 2 diabetes mellitus E11.69 ; Diabetes mellitus with hyperglycemia E11.65 ; A-fib I48.91 ; Status cardiac pacemaker Z95.0 and BMI 30.0-30.9,adult Z68.30 [place] [address] [facility] [address] [place] [id number] 02/08/2024 Santino Pisano GREG (obstructive sle ep apnea) G47.33 [facility] [address] [place] [id number] 03/12/2024 Richardson Kuhn [place] [address] [facility] [address] [place] [id number] 03/28/2024 Santino Pisano [place] [address] [place] [id number] 09/12/2024 Santino Pisano GREG (obstructive sle ep apnea) G47.33 [facility] [address] [facility] [address] [place] [id number] 09/13/2024 Santino Pisano Assessments Encounter Date Diagnosis (ICD Code) Assessment Notes Treatment Notes Treatment Clinical Notes Section Notes 08/15/2024 C. difficile colitis (ICD-10 - A04.72) ----resolved 02/08/2024 GREG (obstructive sleep apnea) (ICD-10 - G47.33) 03/07/2024 Hyperlipidemia associated with type 2 diabetes mellitus (ICD-10 - E11.69) 03/07/2024 Diabetes mellitus with hyperglycemia (ICD-10 - E11.65) 09/12/2024 Hyperlipidemia associated with type 2 diabetes mellitus (ICD-10 - E11.69) 09/12/2024 Diabetes mellitus with hyperglycemia (ICD-10 - E11.65) 09/12/2024 GREG (obstructive sleep apnea) (ICD-10 - G47.33) 08/15/2024 Acute renal failure (ICD-10 - N17.9) ----resolved 09/12/2024 A-fib (ICD-10 - I48.91) 03/07/2024 Screening for prostate cancer (ICD-10 - Z12.5) 08/15/2024 Type 2 diabetes mellitus without complication, without long-term current use of insulin (ICD-10 - E11.9) 08/15/2024 Chronic atrial fibrillation (ICD-10 - I48.20) INR is mildly supratherapeuti c. He is instructed to decrease his Coumadin dose by half for the next 2 days and keep his appointment with the Coumadin clinic at [facility] next week 03/07/2024 Trismus (ICD-10 - R25.2) Continue f/u with ENT 09/12/2024 Status cardiac pacemaker (ICD-10 - Z95.0) 09/12/2024 BMI 30.0-30.9,adult (ICD-10 - Z68.30) 03/07/2024 Encounter for immunization (ICD-10 - Z23) 08/15/2024 Essential hypertension (ICD-10 - I10) 08/15/2024 Dyslipidemia (ICD-10 - E78.5) 08/15/2024 COPD (chronic obstructive pulmonary disease) (ICD-10 - J44.9) 08/15/2024 Hyperlipidemia associated with type 2 diabetes mellitus (ICD-10 - E11.69) 08/15/2024 Type 2 diabetes mellitus with other circulatory complications (ICD-10 - E11.59) 08/15/2024 BMI 30.0-30.9,adult (ICD-10 - Z68.30) Plan Of Treatment Next Appt Details Provider Name:Santino William Tino er, 12/22/2024 10:00:00 AM, [address], [address], [place], [place], [id number], Provider Name:Richardson Martinezkai et, 03/15/2025 09:00:00 AM, [address], [address], [place], [place], [id number], Insurance Providers Payer Name Payer Address Payer Phone Subscriber Number Group Number Insured Name Patient Relationship to Insured Coverage Start Date Coverage End Date MEDICARE PART B [address] [address] [place] [id number] [phone] [id number] RAFAELA SKINNER Self - patient is the insured [employer] [address] [place] [address] [id number] RAFAELA SKINNER Self - patient is the [...] Hospitalization History Reason Date(Month/Year) Elevated Blood Sugar- [facility] ER 05/2020 Vertigo- [facility] ER 10/2016
--- NOTE | 2024-11-08 09:35 | EXP.PAIN.SOA ---
[facility] Disclaimer: The information contained in this section may have been updated after the patient was seen, as this information can be updated by other users. Medical History Trismus Cheek mass Hyperlipidemia Hypertension Atrial fibrillation History of COPD Asthma History of pacemaker COPD (chronic obstructive pulmonary disease) Obstructive sleep apnea syndrome Allergic rhinitis, unspecified Pulmonary emphysema Dyspnea on exertion Surgical History History of colonoscopy History of breast lump removal History of hernia surgery History of cholecystectomy Family History Other Asthma Diabetes Family history of pacemaker Heart attack Hypertension Lung cancer Social History Smoking Status: Never smoker alcohol intake: current substance use type: denies use current occupational status: other Travel in the last 8 weeks?: None household members: spouse housing: apartment current occupational exposures/hazards: No caffeine: No PM Subjective & Objective Subjective Subjective:: Patient is a pleasant 74-year-old male who presents today for his medication refill. He does rate his pain an 8 out of 10. He states all around his mid to lower back as usual. He denies any new falls or injuries. Patient is currently managed with [place] 7.5 mg 5 times a day, Lyrica 100 mg 3 times a day and compounded cream. He denies any side effects. His Nicolas has been reviewed and is appropriate. Review of Systems: General: No recent weight changes, no fever, no sleep disturbances Respiratory: No cough, no shortness of air, no recurring pulmonary infections Cardiovascular/peripheral vascular: No chest pain, no palpitations, no edema, no shortness of breath Gastrointestinal: No new onset incontinence, normal bowel movements reported Genitourinary: No new onset incontinence Musculoskeletal: Low back pain Psychiatric: [Normal mood/affect] Neurological: [Denies weakness in extremities], [denies balance issues] Pain at rest (0-10 scale): 8 Objective Objective:: Physical Exam: General: Alert and oriented x3, no acute distress, pleasant and cooperative Lungs: Respirations even and unlabored, symmetrical chest expansion Eyes: PERRL Musculoskeletal: Flexion and extension of lumbar [spine] somewhat guarded secondary to pain, [antalgic gait noted] Neurological: Speech clear, no gross sensory deficit Has patient had previous pain injection?: No Conservative treatment options previously tried: Prescription medications Length of treatment: Longer than 12 weeks Meds Home Medications and Allergies Home Medications ?Medication ?Instructions ?Recorded ?Confirmed ?Type aspirin 81 mg tablet,delayed 81 mg PO DAILY Blood thinner 02/22/18 10/09/24 History release fenofibrate micronized 134 mg 145 mg PO DAILY Cholesterol 02/22/18 10/09/24 History capsule omeprazole 20 mg capsule,delayed 20 mg PO DAILY GERD 02/22/18 10/09/24 History release tamsulosin 0.4 mg capsule 0.4 mg PO HS bladder 02/22/18 10/09/24 History tizanidine 4 mg capsule 4 mg PO DAILY muscle relaxer 02/22/18 10/09/24 History chlorthalidone 25 mg tablet 25 mg PO DAILY HTN 03/11/20 10/09/24 History losartan 100 mg tablet 100 mg PO DAILY HTN 03/11/20 10/09/24 History potassium chloride 10 mEq 10 meq PO DAILY supp. 03/11/20 10/09/24 History capsule,extended release rosuvastatin 40 mg tablet 40 mg PO DAILY Cholesterol 06/11/20 10/09/24 History glimepiride 2 mg tablet 2 mg PO DAILY Diabetes 05/12/21 10/09/24 History warfarin 5 mg tablet See Rx Instructions .Route 12/11/21 10/09/24 History .COMPLEX Blood thinner fluticasone propionate 50 1 spray intranasal DAILY ALLERGIES 01/18/23 10/09/24 History mcg/actuation nasal spray,suspension (Flonase Allergy Relief) montelukast 10 mg tablet 10 mg PO DAILY ALLERGIES 01/18/23 10/09/24 History (Singulair) budesonide-formoterol HFA 160 2 puff inhalation BID 90 days 04/12/23 10/09/24 Rx mcg-4.5 mcg/actuation aerosol #10.2 grams inhaler (Symbicort) carvedilol 6.25 mg tablet 6.25 mg PO DIRECTED BLOOD 07/27/23 10/09/24 History PRESSURE albuterol sulfate 90 mcg/actuation See Rx Instructions .Route 09/28/23 10/09/24 Rx aerosol inhaler .COMPLEX #8.5 grams amlodipine 10 mg tablet 10 mg PO DIRECTED BLOOD PRESSURE 02/21/24 10/09/24 History azelastine 137 mcg (0.1 %) nasal 1 spray intranasal DIRECTED . 02/21/24 10/09/24 History spray dapagliflozin propanediol 10 mg 10 mg PO DIRECTED Diabetes 02/21/24 10/09/24 History tablet (Farxiga) metformin 500 mg tablet,extended 500 mg PO DAILY Diabetes 02/29/24 10/09/24 History release 24 hr tizanidine 4 mg tablet 4 mg PO DIRECTED Pain 02/29/24 10/09/24 History hydrocodone 7.5 mg-acetaminophen 1 tab PO 5XDAY #150 tabs 10/09/24 Rx 325 mg tablet pregabalin 100 mg capsule 100 mg PO TID Pain #90 caps 10/09/24 Rx New Prescriptions to Start Prescriptions: Allergies Allergy/AdvReac Type Severity Reaction Status Date / Time levofloxacin Allergy Intermediate SWELLING Verified 04/03/24 09:42 AT SITE OF INJECTION Assessment and Plan *Assessment and plan (1) Lumbar radiculopathy: Status: Acute Category: Medical Code(s): M54.16 - Radiculopathy, lumbar region (2) Degenerative disc disease, lumbar: Status: Acute Qualifiers: Disc-related pain type: discogenic back pain and lower extremity pain Qualified Code(s): M51.362 - Other intervertebral disc degeneration, lumbar region with discogenic back pain and lower extremity pain Category: Medical Code(s): M51.369 - Other intervertebral disc degeneration, lumbar region without mention of lumbar back pain or lower extremity pain Plan I will refill his [place] and Lyrica and provide a 1 month supply of this medication. Patient will return to clinic in 1 month. Risks and benefits of the medication have been explained in detail to the patient. The patient does understand the risk of dependence on the medication when given over a prolonged period. Patient has been advised of risks of oversedation with the prescribed medication. Narcan has been offered to the paitent in the event of oversedation. Patient has been advised that a family member should also be educated regarding administration of Narcan. The patient has been advised to consult with his/her primary care provider and pharmacist regarding drug-drug interaction of medications currently prescribed. Patient has been prescribed a controlled substance after being counseled on the medication, medication safety, and possible side effects. Opioid contract was reviewed and signed by the patient, and that they have agreed to all of the terms set forth by our compliance program. A UDS is needed to verify patient's compliance with our office pain contract. This is ordered based off specific treatments related to chronic pain with the potential to abuse certain medications. Patient has been instructed to contact the clinic with any concerns before the next appointment. Dr. Martel has reviewed this note and agrees with this plan of care. This note was dictated using voice recognition software and make contain errors or omissions.
[2024-11-08 10:15] VITALS: BP 119/71; PULSE 71; RESP 14; O2SAT 98; BMI 29.7
== END 2024-11-08 23:59 | disposition home or self-care (01) ==
PROVIDERS: PCP Family Medicine; Visit Provider Nurse Practitioner Family
DX: M51.16 Intervertebral disc disorders with radiculopathy, lumbar region (principal); Z79.891 Long term (current) use of opiate analgesic; Z79.899 Other long term (current) drug therapy
CPT/HCPCS: 99212; G0463

== ENCOUNTER 2024-12-08 09:18 | Outpatient (CLI) | payer MEDICARE, BC, SELFPAY ==
--- OUTSIDE RECORDS SUMMARY | 2024-03-07 05:00 | XMS_ITS ---
Author Organization [facility] Address [address] [place] [id number] Care Team Providers Care Time Clock Inspector Name Role Phone Santino Pisano Primary Care Provider Richardson Kuhn [phone] Allergies Allergen (clinical drug ingredient) Drug/Non Drug [...] 30 Performing Lab: Notes/Report: Test performed by [facility], [employer] [address] [facility] , [address], [place] [address] Ketan Zamora MD, Intellectual Property Lawyer CLIA: [id number] Sodium 142 135-145 mmol/L Potassium 4.0 3.5-5.3 [...] 32 Performing Lab: Notes/Report: Test performed by [facility], [address] , [address], [place] [address] Ketan Zamora MD, Intellectual Property Lawyer CLIA: [id number] Cholesterol 105 <200 mg/dL Triglycerides 181 <150 [...] Interpretation:Normal Performing Lab: Notes/Report: Test performed by [facility], [address] , [facility], [place] [address] Ketan Zamora MD, Intellectual Property Lawyer CLIA: [id number] PSA 1.16 <4.00 ng/mL Please note this [...] due to type 2 diabetes mellitus (disorder) ([id number]) Hyperlipidemia associated with type 2 diabetes mellitus (E11.69) Active confirmed Problem Hyperglycemia due to type 2 diabetes mellitus (146658272892539) Diabetes mellitus with hyperglycemia (E11.65) Active confirmed Vital Signs Weight 236.8 lbs 03/07/2024 Blood pressure systolic 126 mm Hg 03/07/20 24 Blood pressure diastolic 62 mm Hg 024 Heart Rate 76 /min 03/07/2024 Height 74 in 03/07/2024 BMI 30.40 kg/m2 03/07/2024 Encounters Encounter Location Date Provider Diagnosis [place] [address] [facility] [address] [place], [place] [id number] 03/07/2024 Richardson Kuhn Hyperlipidemia associated with type [...] Name:Richardson Dixon, 12/28/2024 10:00:00 AM, [address], [address], [place], [phone], Provider Name:Richardson Snowden Michellekai et, 03/15/2025 09:00:00 AM, [address], [address], [place], [phone], Progress Notes * RAFAELA SKINNERDOB:1950 (74 yo M)Acc No.[id number]:03/07/2024 Progress Notes Patient: RAFAELA BRITT Provider: Richardson Kuhn M.D. :1950 A ge:73 Y S ex:Male Date:03/07/2024 Address:[place], [id number] Pcp:Santino Pisano Subjective: * Chief Complaints: * 1 . 6 Month Check Up. 2. Needs laabs with PSA & flu vaccine. * HPI: C ardiology: Pt presents today for a 6 month check up. Needs refill on Montelukast and Albuterol. Pt would like this flu shot today. Pt is fasting today. He continues to follow with the Coumadin clinic at [facility] for monitoring his INR. E NT/respiratory: He [...] * Hospitalization/Major Diagno stic Procedure: V ertigo- [facility] ER 10/2016, Elevated Blood Sugar- [facility] ER 05/2020. * Family History: F ather: [...] 0.5 mL (Route: Intramuscular) given by Hyacinth Logane on Right Deltoid (Encounter for immunization) * Procedure Codes: [address] [place], [address] CAPILLARY BLOOD DRAW, [address] GLYCATED HEMOGLOBIN TEST, Modifiers: QW * Follow Up: 6 Months * Images: Billing Information: * Visit Code: 72209 Office Visit, Est Pt., Level 4. * Procedure Codes: [address] [place]. [address] CAPILLARY BLOOD DRAW. [address] GLYCATED HEMOGLOBIN TEST. Modifiers: QW * Electronic signature of Richardson Kuhn MD on 12/08/2024 at 09:22 AM EDT Sign off status: Pending * Provider: Richardson Kuhn M.D. Date: 1 Generated for Printi ng/Faxing/eTransmitting on: 0 12/08/2024 09:22 AM EDT History and Physical Notes * HPI (History of Present Illness) Category Sub-Category Detail Notes Category Not es Cardiology He continues to follow with the Coumadin clinic at [facility] for monitoring his INR Examination Category Sub-Category [...]
--- OUTSIDE RECORDS SUMMARY | 2024-08-15 09:45 | XMS_ITS ---
Author Organization [facility] Address [address] [facility] [address] [place] [phone] Care Team Providers Care Spooler Operator Automatic Name Role Phone Santino Pisano Primary Care Provider Richardson Kuhn [phone] Allergies Allergen (clinical drug ingredient) Drug/Non Drug [...] dose same next check 1 week with [facility] Coumadin Clinic REASON FOR VISIT Discharge F/U from [facility] Medications Medication SIG (Take, Route, [...] Problem COPD - Chronic obstructive pulmonary disease (59532405) COPD (chronic obstructive pulmonary disease) (J44.9) Active confirmed Problem Peripheral circulatory disorder associated with diabetes mellitus (779800264) 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 confirmed Problem Body mass index 30+ - obesity (695404775) BMI 30.0-30.9,adult (Z68.30) Active confirmed Vital Signs Weight 237.6 lbs 08/15/2024 Blood pressure systolic 126 mm Hg 08/16/19 25 Blood pressure diastolic 60 mm Hg 025 Heart Rate 79 /min 08/15/2024 Height 74 in 08/15/2024 BMI 30.5 kg/m2 08/15/2024 Encounters Encounter Location Date Provider Diagnosis [facility] [address] [facility] [address] [place], [place] [phone] 08/15/2024 Richardson Kuhn Acute renal failure N17.9 [...] his appointment with the Coumadin clinic at [facility] next week 08/15/2024 Essential hypertension (ICD-10 [...] his appointment with the Coumadin clinic at [facility] next week Next Appt Details Follow Up: 3 Months, Reason: Provider Name:Richardson Dixon, 12/28/2024 10:00:00 AM, [address], [address], [place], [phone], Provider Name:Richardson Dixon, 03/15/2025 09:00:00 AM, [address], [address], [place], [phone], Progress Notes * RAFAELA SKINNERDOB:1950 (74 yo M)Acc No.[id number]:08/15/2024 Progress Notes Patient: RAFAELA BRITT MIYA Provider: Richardson Kuhn M.D. :1950 A ge:73 Y S ex:Male Date:08/15/2024 Address:[facility] [place], [id number] Pcp:Santino Pisano Subjective: * Chief Complaints: * 1 . Discharge F/U from [facility]. * HPI: H PI: He comes in today for follow-up on recent hospitalization at [facility] for C. difficile colitis, dehydration, and acute renal failure. He apparently had ongoing diarrhea at home for several days and became weak and fell striking his head. This prompted a visit to the [facility] ER. CT scan of the head was negative for intracranial bleeding but he was found to be dehydrated and acute renal failure with creatinine of 5 and supratherapeutic INR. He was then transferred to [facility] for nephrology consultation. I have reviewed available records from [place]. Stool studies confirmed the diagnosis of C. [...] * Hospitalization/Major Diagno stic Procedure: V ertigo- [facility] ER 10/2016, Elevated Blood Sugar- [facility] ER 05/2020. * Family History: F [...] circulatory complications - E11.59 1 0. B DE 30.0-30.9,adult - Z68.30 Plan: * Treatment: * Labs: * L ab: PT/INR (in house) (Collection Date & Time - 08/15/2024) Value Reference Range P T 3.1 * I NR 36.7 * c urrent dose 7.5mg M,F; 10 mg AOD * n ew dose same * n ext check 1 week with [facility] Coumadin Clinic * Dilcia Proctor 08/15/2024 02:05 :26 PM > Provider reviewed results while patient in office. * Procedure Codes: G 2211 Complex e/[place], [address] PROTHROMBIN TIME, Modifiers: QW , 82173 CAPILLARY BLOOD DRAW, G8752 MOST RECENT SYSTOLIC BP < 140MM HG, G8754 MOST RECENT DIASTOLIC BP < 90MM HG * Follow Up: 3 Months * Images: Billing Information: * Visit Code: 20699 Office Visit, Est Pt., Level 4. * Procedure Codes: G2211 Complex e/[place]. [address] PROTHROMBIN TIME. Modifiers: QW 63182 CAPILLARY BLOOD DRAW. G8752 MOST RECENT SYSTOLIC BP < 140MM HG. G8754 MOST RECENT DIASTOLIC BP < 90MM HG. * Electronic signature of Richardson Kuhn MD on 12/08/2024 at 09:22 AM EDT Sign off status: Pending * Provider: Richardson Kuhn M.D. Date: 0 08/15/2024 Generated for Garry andrews/Jacob/Antoniaransmitting on: 0 12/08/2024 09:22 AM EDT History [...]
--- OUTSIDE RECORDS SUMMARY | 2024-09-12 05:00 | XMS_ITS ---
Author Organization [facility] Address [address] [place] [id number] Care Team Providers Care Sales Operations Assistant Name Role Phone Santino Pisano Primary Care Provider [phone] Richardson Kuhn [phone] Allergies Allergen (clinical drug ingredient) Drug/Non Drug [...] Interpretation: Performing Lab: Notes/Report: Test performed by [facility] [address] [place] [address] , [address], [place] [address] Ketan Zamora MD, Visitor Services Information Assistant CLIA: [id number] Sodium 139 135-145 mmol/L Potassium 4.0 3.5-5.3 [...] Interpretation: Performing Lab: Notes/Report: Test performed by [facility], [facility] [address] [place] [address] , [address], [place] [address] Ketan Zamora MD, Visitor Services Information Assistant CLIA: [id number] Cholesterol 107 <200 mg/dL Triglycerides 178 <150 [...] Interpretation: Performing Lab: Notes/Report: Test performed by [facility], [address] , [facility], [place] [address] Ketan Zamora MD, Visitor Services Information Assistant CLIA: [id number] Albumin/Creatinine Ratio, Urine 6 0-30 ug/m g [...] 09/12/2024 Encounters Encounter Location Date Provider Diagnosis [facility] [address] [place] [address] [address] [place] [id number] 09/12/2024 Richardson Kuhn Hyperlipidemia associated with type [...] Follow Up: 6 Months, Reason: Provider Name:Richardson Lindsey apollo, 12/28/2024 10:00:00 AM, [facility] [address], [address], [place], [phone], Provider Name:Richardson Martinezdinahjass apollo, 03/15/2025 09:00:00 AM, [address] [place] [address], [address], [place], [phone], Progress Notes * RAFAELA SKINNERDOB:1950 (74 yo M)Acc No.[id number]:09/12/2024 Progress Notes Patient: Bro CASIMIRO RAFAELA HOLLIDAY Provider: Richardson Kuhn M.D. :1950 A ge:73 Y S ex:Male Date:09/12/2024 Address:[facility] [id number] Pcp:Santino Pisano Subjective: * Chief Complaints: * 1 . 6 months. 2. Needs labs. * HPI: C ardiology: The patient is here today for a check up. Pt states he is doing well and denies any new concerns. Pt states he is fasting. Pt states his last INR was on Wednesday at [facility] and it was 2.9. Denies : [...] Hospitalization/Major Diagno stic Procedure: V ertigo- [facility] ER 10/2016, Elevated Blood Sugar- [facility] ER 05/2020. * Family History: [...] cardiac pacemaker - Z95.0 5 . B MS 30.0-30.9,adult - Z68.30 Plan: * Treatment: Value [...] G 2211 Complex e/[place], [address] GLYCATED HEMOGLOBIN TEST, Modifiers: QW , 3051F HG A1C>EQUAL 7.0%<8.0%, G8752 MOST RECENT SYSTOLIC BP < 140MM HG, G8754 MOST RECENT DIASTOLIC BP < 90MM HG * Follow Up: 6 Months * Images: Billing Information: * Visit Code: 78159 Office Visit, Est Pt., Level 4. * Procedure Codes: G2211 Complex e/[place]. [address] GLYCATED HEMOGLOBIN TEST. Modifiers: QW 3051F HG A1C>EQUAL 7.0%<8.0%. G8752 MOST RECENT SYSTOLIC BP < 140MM HG. G8754 MOST RECENT DIASTOLIC BP < 90MM HG. * Electronic signature of Richardson Kuhn MD on 12/08/2024 at 09:21 AM EDT Sign off status: Pending * Provider: Richardson Kuhn M.D. Date: 0 09/12/2024 Generated for Calini juliana/Jacob/eTransmitting on: 0 12/08/2024 09:21 AM EDT History and Physical Notes [...]
--- OUTSIDE RECORDS SUMMARY | 2024-10-19 15:30 | XMS_ITS | Encounter Summary ---
[facility] Organization [facility] Address [address] [place] [address] Care Team Providers Care Crosscutter Name Role Phone Francisco Kuhn MD Primary Care Provider Reason for Visit * Reason Comments Coronary artery disease involving sioux coronary artery of Encounter Details Date Type Department Care Team (Late st Contact Info) Description 10/19/2024 3:30 PM EDT Office Visit [facility] [address] [place] [address] [place] [address] Glenn Lovett MD [address] [facility] [place] [address] Coronary artery disease involving sioux coronary artery of sioux heart without angina pectoris (Primary Dx); Primary hypertension; Mixed hyperlipidemia; Permanent atrial fibrillation Social History Tobacco Use Types Packs/Day Years Used Date Smoking Tobacco: Former Cigarettes 2 15 1 972 - 1987 Passive Smoke Exposure: Never Smokeless Tobacco: Never Comments:quit 30 years ago Alcohol Use Standard Drinks/Week Comments Yes 7 (1 standard drink = 0.6 oz pur e alcohol) 1 beer a day AUDIT-C Answer Date Recorded Q1: How often do you have a drink containing alcohol? 4 or more times a week 03/23/2022 Q2: How many drinks containi ng alcohol do you have on a typical day when you are drinking? 1 or 2 Q3: How often do you have si x or more drinks on one occasion? Less than monthly 03/23/2022 Abuse Screen Answer Date Recorded Feels Unsafe at Home or Work/School no 03/23/2022 Feels Threatened by Someone no 03/10 Does Anyone Try to Keep You From Having Contact with Others or Doing Things Outside Your Home? no 03/23/2022 Physical Signs of Abuse Present no 03/23/2022 Housing Stability Answer Date Recorded Current Living Arrangements home 03/10 Potentially Unsafe Housing Conditions Not on semaj e 03/23/2022 Disabilities Answer Date Recorded Difficulty Concentrating, Remembering or Making Decisions no 03/23/2022 Difficulty Managing Errands Independently no 03/23/2022 Sex and Gender Information Value Date Recorded Sex Assigned at Male 10/13/2024 10:12 PM EDT Legal Sex Male 12:15 PM EDT Gender Identity Not on file Sexual Orientation Not on file documented as of this encounter Last Filed Vital Signs Vital Sign Reading Time Taken Comments Blood Pressure 132/60 10/19/2024 3:31 PM EDT Pulse 74 10/19/2024 3:31 PM EDT Temperature - - Respiratory Rate - - Oxygen Saturation 97% 10/19/2024 3:31 PM EDT Inhaled Oxygen Concentration - - Weight 110 kg (243 lb) 10/19/2024 3:31 PM EDT Height 190.5 cm (6' 3 ) 10/19/2024 3:31 PM EDT Body Mass Index 30.37 10/19/2024 3:31 PM EDT documented in this encounter Progress Notes * Glenn Lovett MD - 10/19/2024 3:30 PM EDT [facility] Cardiology Office Progress Note Glenn Skinner [address] [place] [address] Visit Date: 10/19/24 PCP: Francisco Kuhn MD [facility] [address] [place] [address] IDENTIFICATION: A 73 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 Former vargas Hernandez, ab pt. PROBLEM LIST: Exertional chest tightness/dyspnea: Normal myocardial perfusion by nuclear perfusion study, 01/22/2012; LVEF 59%. Cardiac catheterization, 03/27/2010. 30% to 40% distal left main plaque. LVEF 50%; no MR/MVP. Echocardiogram, 06/14/2014: LVEF 60% to 65%; no LVH; no significant valvular abnormality. 10/26/2018 MPS: Lexiscan Cardiolite WNL, EF 70%, occasional PVC 03/01 echo EF> 55% rvsp 33 Hypertension. Hyperlipidemia. 02/27 89/121/37/30 Chronic atrial fibrillation, diagnosed in 1994: Tachy-sonia syndrome with frequent bradycardia and frequent pausing, Holter - 12/01/2003. Biventricular pacemaker implantation, [facility] [place], 03/13/2004; Guidant model 4538 set at VVI 80 bpm. Chronic Coumadin therapy. AV node ablation (August 2005). Generator change, Dr. Hirsch, 2013.(Post GEN change pocket infection requiring antibiotics) 03/[address] Reynoso COPD - remote tobacco abuse. Obstructive sleep apnea. Surgical history: Hiatal hernia repair. Biventricular pacemaker implantation. Excision of left breast mass. CC: Chief Complaint Patient presents with Coronary artery disease involving sioux coronary artery of Allergies Allergies Allergen Reactions Atenolol Headache and lightheadedness. Levofloxacin Lipitor [Atorvastatin] Questionable elevated LFTs. Current Medications Current Outpatient Medications: amLODIPine (NORVASC) 10 MG tablet, TAKE 1/2 TABLET BY MOUTH TWICE DAILY, Disp: 90 tablet, Rfl: 1 aspirin 81 MG EC tablet, Take 1 tablet by mouth Daily., Disp: , Rfl: azelastine (ASTEPRO) 0.15 % solution nasal spray, Administer 1 spray into the nostril(s) as directed by provider Daily., Disp: , Rfl: Azelastine HCl 137 MCG/SPRAY solution, , Disp: , Rfl: carvedilol (COREG) 12.5 MG tablet, Take 1 tablet by mouth 2 (Two) Times a Day., Disp: 180 tablet, Rfl: 3 chlorthalidone (HYGROTON) 25 MG tablet, TAKE 1 TABLET BY MOUTH ONCE DAILY, Disp: 90 tablet, Rfl: 2 Cholecalciferol (VITAMIN D) 1000 UNITS tablet, Take 2 tablets by mouth Daily., Disp: , Rfl: Farxiga 10 MG tablet, , Disp: , Rfl: Farxiga 5 MG tablet tablet, 1 tablet., Disp: , Rfl: fenofibrate micronized (LOFIBRA) 134 MG capsule, Take 1 capsule by mouth Every Morning Before Breakfast., Disp: , Rfl: fluticasone (FLONASE) 50 MCG/ACT nasal spray, Administer 1 spray into the nostril(s) as directed byprovider Daily., Disp: , Rfl: glimepiride (AMARYL) 2 MG tablet, Take 1 tablet by mouth 2 (Two) Times a Day., Disp: , Rfl: HYDROcodone-acetaminophen (NORCO) 7.5-325 MG per tablet, Take 1 tablet by mouth 3 (Three) Times a Day As Needed. Taking 5 times daily, Disp: , Rfl: losartan (COZAAR) 100 MG tablet, TAKE 1 TABLET BY MOUTH ONCE DAILY, Disp: 90 tablet, Rfl: 2 magnesium oxide (MAG-OX) 400 MG tablet, Take 1 tablet by mouth Daily., Disp: , Rfl: meloxicam (MOBIC) 7.5 MG tablet, 1 tablet., Disp: , Rfl: metFORMIN ER (GLUCOPHAGE-XR) 500 MG 24 hr tablet, Take 1 tablet by mouth 2 (two) times a day., Disp: , Rfl: montelukast (SINGULAIR) 10 MG tablet, Take 1 tablet by mouth Daily., Disp: , Rfl: omeprazole (priLOSEC) 20 MG capsule, Take 1 capsule by mouth Daily., Disp: , Rfl: potassium chloride (MICRO-K) 10 MEQ CR capsule, , Disp: , Rfl: pregabalin (LYRICA) 100 MG capsule, Daily., Disp: , Rfl: rosuvastatin (CRESTOR) 40 MG tablet, TAKE 1 TABLET BY MOUTH EVERY NIGHT, Disp: 90 tablet, Rfl: 3 SYMBICORT 160-4.5 MCG/ACT inhaler, Inhale 2 puffs Daily., Disp: , Rfl: tamsulosin (FLOMAX) 0.4 MG capsule 24 hr capsule, Take 1 capsule by mouth Daily., Disp: , Rfl: tiZANidine (ZANAFLEX) 4 MG tablet, Take 1 tablet by mouth At Night As Needed., Disp: , Rfl: VENTOLIN HFA 108 (90 BASE) MCG/ACT inhaler, Inhale 2 puffs As Needed., Disp: , Rfl: warfarin (COUMADIN) 5 MG tablet, Take 2 tablets by mouth Daily. Takes 10 mg every day, Disp: , Rfl: History of Present Illness Glenn Skinner is a 73 y.o. year old male here for follow up. No cardiac complaints. He camps on a regular basis. OBJECTIVE: Vitals: 10/19/24 1531 BP: 132/60 BP Location: Right arm Patient Position: Sitting Cuff Size: Pulse: 74 SpO2: 97% Weight: 110 kg (243 lb) Height: 190.5 cm (75 ) Body mass index is 30.37 kg/m??. Constitutional: Appearance: Healthy appearance. Not in distress. Neck: Vascular: No JVR. JVD normal. Pulmonary: Effort: Pulmonary effort is normal. Breath sounds: Normal breath sounds. No wheezing. No rhonchi. No rales. Chest: Chest wall: Not tender to palpatation. Cardiovascular: PMI at left midclavicular line. Device CDI Normal rate. Regular rhythm. Normal S1. Normal S2. Murmurs: There is a systolic murmur. No gallop. No click. No rub. Pulses: Intact distal pulses. Edema: Peripheral edema absent. Abdominal: General: Bowel sounds are normal. Palpations: Abdomen is soft. Tenderness: There is no abdominal tenderness. Musculoskeletal: Normal range of motion. General: No tenderness. Skin: General: Skin is warm and dry. Neurological: General: No focal deficit present. Mental Status: Alert and oriented to person, place and time. Diagnostic Data: Procedures ASSESSMENT: Diagnosis Plan 1. Coronary artery disease involving sioux coronary artery of sioux heart without angina pectoris 2. Primary hypertension 3. Mixed hyperlipidemia 4. Permanent atrial fibrillation PLAN: CAD nonischemic cardiomyopathy post ICD [place] Heart Association class III/CHF continue GDMT CAD nonobstructive continued medical management low threshold for invasive ischemic evaluation withany anginal equivalent Hypertension controlled currently tamsulosin losartan chlorthalidone Mixed dyslipidemia controlled on statin therapy Diabetes on oral agents Chronic A. fib post AV node ablation on warfarin Glenn Lovett MD, [facility] documented in this encounter Plan of Treatment Upcoming Encounters Date Type Department Care Team (Late st Contact Info) Description 07/03/2025 3:15 PM EST Office Visit [facility] [address] [facility] [address] [place] [address] Khoi Reynoso MD [address] [facility] [address] [place] [address] documented as of this encounter Visit Diagnoses Diagnosis Coronary artery disease involving sioux coronary artery of sioux heart without angina pectoris- Primary Primary hypertension Unspecified essential hypertension Mixed hyperlipidemia Permanent atrial fibrillation Atrial fibrillation documented in this encounter Care Teams Crosscutter Relationship Specialty Start Date End Date Francisco Kuhn MD [facility] [address] [place] [address] PCP - General 02/25/15 documented as of this encounter
--- OUTSIDE RECORDS SUMMARY | 2024-12-08 09:22 | XMS_ITS | Encounter Summary ---
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 [address] [place] [address] Khoi Reynoso MD [address] [facility] [address] [place] [address] documented as of this encounter Visit Diagnoses Not on filedocumented in this encounter Care Teams Tongue And Groove Machine Setter Relationship Specialty Start Date End Date Francisco Kuhn MD [address] [facility] [address] [facility] [address] [place] [address] PCP - General 02/25/15 documented as of this encounter
--- OUTSIDE RECORDS SUMMARY | 2024-12-08 09:22 | XMS_ITS | Clinical Summary ---
[facility] Address [address] [place] [id number] Care Team Providers Care Cutting Machine Operator Helper Name Role Phone Francisco Kuhn MD Primary Care Provider Allergies Active Allergy Reactions Criticality Noted Date Comments Atenolol 02/21/2016 Headache and lightheadedness. Levofloxacin 03/03/2016 Atorvastatin 02/21/2016 Questionable elevated LFTs. Medications VENTOLIN HFA 108 (90 BASE) MCG/ACT inhaler Inhale 2 puffs As Needed. 6 Active warfarin (COUMADIN) 5 MG tablet Take 2 tablets by mouth Daily. Takes 10 mg every day 6 Active montelukast (SINGULAIR) 10 MG tablet Take 1 tablet by mouth Daily. 6 Active fenofibrate micronized (LOFIBRA) 134 MG capsule Take 1 capsule by mouth Every Morning Before Breakfast. 6 Active azelastine (ASTEPRO) 0.15 % solution nasal spray Administer 1 spray into the nostril(s) as directed by provider Daily. 6 Active SYMBICORT 160-4.5 MCG/ACT inhaler Inhale 2 puffs Daily. 6 Active aspirin 81 MG EC tablet Take 1 tablet by mouth Daily. Active Cholecalciferol (VITAMIN D) 1000 UNITS tablet Take 2 tablets by mouth Daily. Active HYDROcodone-aceta minophen (NORCO) 7.5-325 MG per tablet Take 1 tablet by mouth 3 (Three) Times a Day As Needed. Taking 5 times daily Active tiZANidine (ZANAFLEX) 4 MG tablet Take 1 tablet by mouth At Night As Needed. 8 Active metFORMIN ER (GLUCOPHAGE-XR) 500 MG 24 hr tablet Take 1 tablet by mouth 2 (two) times a day. 8 Active tamsulosin (FLOMAX) 0.4 MG capsule 24 hr capsule Take 1 capsule by mouth Daily. 8 Active omeprazole (priLOSEC) 20 MG capsule Take 1 capsule by mouth Daily. Active glimepiride (AMARYL) 2 MG tablet Take 1 tablet by mouth 2 (Two) Times a Day. Active pregabalin (LYRICA) 100 MG capsule Daily. 2 Active rosuvastatin (CRESTOR) 40 MG tablet TAKE 1 TABLET BY MOUTH EVERY NIGHT 90 tablet 3 3 Active fluticasone (FLONASE) 50 MCG/ACT nasal spray Administer 1 spray into the nostril(s) as directed by provider Daily. 3 Active magnesium oxide (MAG-OX) 400 MG tablet Take 1 tablet by mouth Daily. Active Farxiga 5 MG tablet tablet 1 tablet. 4 Active Azelastine HCl 137 MCG/SPRAY solution 4 Active Farxiga 10 MG tablet 4 Active potassium chloride (MICRO-K) 10 MEQ CR capsule 4 Active losartan (COZAAR) 100 MG tabletIndications :Essential hypertension TAKE 1 TABLET BY MOUTH ONCE DAILY 90 tablet 2 4 Active chlorthalidone (HYGROTON) 25 MG tablet TAKE 1 TABLET BY MOUTH ONCE DAILY 90 tablet 2 4 Active carvedilol (COREG) 12.5 MG tablet Take 1 tablet by mouth 2 (Two) Times a Day. 180 tablet 3 5 Active amLODIPine (NORVASC) 10 MG tablet TAKE 1/2 TABLET BY MOUTH TWICE DAILY 90 tablet 1 5 Active meloxicam (MOBIC) 7.5 MG tablet 1 tablet. 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 Chronic Coumadin therapy. Hypertension Hyperlipidemia Permanent atrial fibrillation Overview (11/16/2023): Tachy-sonia syndrome with frequent bradycardia and frequent pausing, Holter - 12/01/2003. Biventricular pacemaker implantation, 03/13/2004; Guidant model 4538 set at VVI 80 bpm. Chronic Coumadin therapy. AV node ablation (August 2005). Generator change, Dr. Hirsch, 2013. Tachy-sonia syndrome COPD (chronic obstructive pulmonary disease) Overview (11/16/2023): Remote tobacco use Obstructive sleep apnea Resolved Problems Problem Noted Date Diagnosed Date Resolved Date VAN (dyspnea on exertion) Overview (02/21/2016): a. Normal myocardial perfusion by nuclear perfusion study, 01/22/2012; LVEF 59%. b. Cardiac catheterization, 03/27/2010. i. 30% to 40% distal left main plaque. ii. Dyssynchronous LV contraction due to catheter-induced ventricular ectopy; estimated LVEF 50%; no MR/MVP. c. Echocardiogram, 06/14/2014: LVEF 60% to 65%; no LVH; no significant valvular abnormality. Encounters Date Type Department Care Team Description 10/19/2024 3:30 PM EDT Office Visit [facility] [address] [place] [address] [place] [address] Glenn Lovett MD Coronary artery disease involving northwestern shoshone coronary artery of northwestern shoshone heart without angina pectoris (Primary Dx); Primary hypertension; Mixed hyperlipidemia; Permanent atrial fibrillation 10/19/2024 Travel 09/19/[address] [facility] [address] [place] [address] [address] [place] [address] Glenn Lovett MD Med Refill from Last 3 Months Family History Medical History Relation Name Comments Cancer Brother Diabetes Brother Alcohol abuse Father Hernández Asthma Father Hernández Arrhythmia Mother Ruth Atrial fibrillation Mother Ruth Heart disease Mother Ruth Heart failure Mother Ruth Lung cancer Sister Relation Name Status Comments Brother Father Edgar Mother Ruth Sister Social History Tobacco Use Types Packs/Day Years Used Date Smoking Tobacco: Former Cigarettes 2 15 1 1986 Passive Smoke Exposure: Never Smokeless Tobacco: Never Tobacco Cessation:Counseling Given: Not Answered Comments:quit 30 years ago Alcohol Use Standard [...] Pulse 74 10/19/2024 3:31 PM EDT Temperature 36.4 C (97.6 F) 03/23/2022 6:34 AM EST Respiratory Rate 11 03/23/2022 9:54 AM EST Oxygen Saturation 97% 10/19/2024 3:31 PM EDT Inhaled Oxygen Concentration - - Weight 110 kg (243 lb) 10/19/2024 3:31 PM EDT Height 190.5 cm (6' 3 ) 10/19/2024 3:31 PM EDT Body Mass Index 30.37 10/19/2024 3:31 PM EDT Plan of Treatment Upcoming Encounters Date Type Department Care Team (Late st Contact Info) Description 07/03/2025 3:15 PM EST Office Visit [facility] [address] [facility] [address] [place] [address] Khoi Reynoso MD [address] [facility] [address] [place] [phone] Health Maintenance Due Date Last Done Comments DIABETIC EYE EXAM 1962 DIABETIC FOOT EXAM 1962 URINE MICROALBUMIN-CREATININ E RATIO (uACR) 1962 TDAP/TD VACCINES (1 - Tdap) 10/30/1971 COLOGUARD 1997 COLON CANCER SCREENING 5 YEA R SIGMOIDOSCOPY 1997 CT COLONOGRAPHY 1997 FIT Testing (1 year) 1997 ZOSTER VACCINE (1 of 2) 2002 HEPATITIS C SCREENING 08/12/2016 AAA SCREEN ONCE 2017 FECAL OCCULT BLOOD TEST 05/24/2019 05/24/2018 ANNUAL WELLNESS VISIT 08/29/2022 08/29/2021 , 08/27/2020, 05/26/2019, Additional history exists HEMOGLOBIN A1C 03/05/2023 09/03/2022, 02/08, 08/29/2021, Additional history exists LIPID PANEL 09/04/2023 09/03/2022, 02/08, 08/29/2021, Additional history exists COVID-19 Vaccine ( - 2023-2 5 season) 2024 INFLUENZA VACCINE 02/07/2025 03/06/2022, , 03/06/2022, Additional history exists COLONOSCOPY 06/01/2026 06/01/2016 COLORECTAL CANCER SCREENING 06/01/2026 Pneumococcal Vaccine 50+ Completed 05/26/2019, 05/10 Medical Devices Implanted Type Area Pricing Analyst Device Identifier Shelf Expiration Date Model / Serial / Lot Env Pm Aigisrx Antibac Resorb 2.9x3.3in Lg - [id number] Implanted:Qty: 1 on 03/23/2022 by Khoi Reynoso MD at [facility] Implant MEDTRONIC 11/29/2022 [id number] / / [id number] Hemost Abs Surgicel Pwdr 3gm - [id number] Implanted:Qty: 1 on 03/23/2022 by Khoi Reynoso MD at [facility] Implant ETHICON DIV OF J AND J 06/09/2023 [id number] / / [id number] Pacemaker-12/28 Implanted:12/09 by Yvon Hirsch MD (Quantity not on file) Pacemaker BS V173 INVIVE ESTATE ADMINISTRATOR-P / [id number] / Gen Pm Visionist Budget Coordinator/P 15.2cc U225 - [id number] - [id number] Implanted:Qty: 1 on 03/23/2022 by Khoi Reynoso MD at [facility] Pacemaker BioRelix MADI 01/05/2024 [id number] / [id number] / [facility] Care Teams Cutting Machine Operator Helper Relationship Specialty Start Date End Date Francisco Kuhn MD [address] [place] [facility] [address] [place] [address] PCP - General 02/25/15
--- OUTSIDE RECORDS SUMMARY | 2024-12-08 09:22 | XMS_ITS | Clinical Summary ---
Author Organization [facility] Address [address] [place] [address] Care Team Providers Care System Designer Name Role Phone Francisco Kuhn MD Primary Care Provider [phone]- [phone] Medications methocarbamol (Robaxin) 750 MG tablet Take [...] 1997 UKY-Zoster Vaccines (1 of 2) 2002 [id number] Vaccine (1 - 2023- season) 2024 UKY-Influenza Vaccine (#1) 01/08/202503/06, 02/28/2021, 02/19/2020, Additional history exists UKY-RSV Vaccine: [...] to complete this topic Insurance [place] [id number] [place] [address] ANTHEM Care Teams System Designer Relationship Specialty Start Date End Date Francisco Kuhn MD [address] [place] [address] PCP - General 09/20/20
--- OUTSIDE RECORDS SUMMARY | 2024-12-08 09:22 | XMS_ITS | Encounter Summary ---
[facility] Address [address] [place] [address] Care Team Providers Care Hand Fretted Instrument Maker Name Role Phone Francisco Kuhn MD Primary Care Provider Encounter Details Date Type Department Care Team (Late st Contact Info) Description 05/24/2018 External CPT II MESS ATTENDANT CREW - [facility] Social History Tobacco Use Types Packs/Day Years Used Date Smoking Tobacco: Former Cigarettes Smokeless Tobacco: Never Comments:quit 30 years ago Alcohol Use Standard Drinks/Week Comments No 0 (1 standard drink = 0.6 oz pur e alcohol) Sex and Gender Information Value Date Recorded Sex Assigned at Male 10/13/2024 10:12 PM EDT Legal Sex Male 12:15 PM EDT Gender Identity Not on file Sexual Orientation Not on file documented as of this encounter Plan of Treatment Upcoming Encounters Date Type Department Care Team (Late st Contact Info) Description 07/03/2025 3:15 PM EST Office Visit [facility] [address] [facility] [address] [place] [phone] Khoi Reynoso MD [address] [facility] [address] [place] [address] documented as of this encounter Visit Diagnoses Not on filedocumented in this encounter Care Teams Hand Fretted Instrument Maker Relationship Specialty Start Date End Date Francisco Kuhn MD [address] [place] [facility] [address] [place] [address] PCP - General 02/25/15 documented as of this encounter
--- OUTSIDE RECORDS SUMMARY | 2024-12-08 09:23 | XMS_ITS | Patient Health Record ---
[facility] Organization [facility] Address [address] [facility] [address] [place] [id number] Care Team Providers Care Validation Software Facilitator Name Role Phone Santino Pisano Primary Care Provider Richardson Kuhn [phone] Allergies Allergen (clinical drug ingredient) Drug/Non Drug [...] 30 Performing Lab: Notes/Report: Test performed by [email or web address] , [address], [place] [address] Ketan Zamora MD, Gas Pumper CLIA: [id number] Sodium 142 135-145 mmol/L Potassium 4.0 3.5-5.3 [...] 32 Performing Lab: Notes/Report: Test performed by [email or web address], [address] , [address], [place] [address] Ketan Zamora MD, Gas Pumper CLIA: [id number] Cholesterol 105 <200 mg/dL Triglycerides 181 <150 [...] Interpretation:Normal Performing Lab: Notes/Report: Test performed by [email or web address], [address] , [place] [address] Ketan Zamora MD, Gas Pumper CLIA: [id number] PSA 1.16 <4.00 ng/mL Please note this [...] dose same next check 1 week with [facility] Coumadin Clinic Glycohemoglobin A1c (in hous e) Reviewed date:09/13/2024 10:29:03 PM Interpretation:7.6% Performing Lab: Notes/Report: 7.6% glycohemoglobin 7.6% 5 - 6.5 % P-Comprehensive Metabolic Pa guicho (CMP) Reviewed date:09/13/2024 10:37:03 PM Interpretation: Performing Lab: Notes/Report: Test performed by [email or web address] [address] [place] [address] [address], [place] [address] Ketan Zamora MD, Gas Pumper CLIA: [id number] Sodium 139 135-145 mmol/L Potassium 4.0 3.5-5.3 [...] Interpretation: Performing Lab: Notes/Report: Test performed by [email or web address] [address] [place] [address] [address], [place] [address] Ketan Zamora MD, Gas Pumper CLIA: [id number] Cholesterol 107 <200 mg/dL Triglycerides 178 <150 [...] Interpretation: Performing Lab: Notes/Report: Test performed by [email or web address] [address] [place] [address] , [place] [address] Ketan Zamora MD, Gas Pumper CLIA: [id number] Albumin/Creatinine Ratio, Urine 6 0-30 ug/mg Microalbumin, Urine, Random 0.4 Creatinine, Urine 61.7 H-INR Reviewed date:03/03/2024 10:10:29 AM Interpretation: Performing [...] 7.5 MG ON MON/WED/FRI; 10 MG ON WED/WED/TISHA/WED. FOR DETAILED INFORMATION-PLEASE REVIEW PROGRESS NOTE IN [...] 7.5 MG ON MON/FRI; 10 MG ON SUN/WED/WED/TISHA/SAT. PATIENT INDICATED HE HAS NOT BEEN TO [...] WARFARIN 7.5 MG ON MON/WED/FRI; 10 MG SUN/TUE/TISHA/SAT. FOR DETAILED INFORMATION-PLEASE REVIEW PROGRESS NOTE [...] X3 DAYS THEN RESUME 7.5 MG ON MON/WED; 10 MG ON SUN/TUE/WED/TISHA/SAT. WILL FOLLOW UP ON 05/15/24 IN CLINIC. [...] Once a day; Duration: 90 days Active metFORMIN HCl ER 500 MG 2 tablets orally twice a day; Duration: 30 days Active Farxiga 10 MG TAKE 1 TABLET [...] directed diagnosis codes: G47.33, J44.9 09/03/2023 Active Magnesium Oxide 400 MG 1 tab(s) orally o nce a day Active Symbicort 160-4.5 MCG/ACT INHALE 2 PUFFS BY MOUTH 2 TIMES A DAY (RINSE MOUTH AFTER USE) Active Pregabalin 75 MG 1 cap(s) orally once daily Active Carvedilol 6.25 MG 1 tablet with [...] Peripheral circulatory disorder associated with diabetes mellitus (694516540) 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 confirmed Problem Long-term current use of anticoagulant (961956149) detention current use of anticoagulants with INR goal of 2.0-3.0 (Z79.01) Active confirmed Problem COPD - Chronic obstructive pulmonary disease (39409686) COPD (chronic obstructive pulmonary disease) (J44.9) Active confirmed Problem Essential hypertension (77173637) Essential hypertension (I10) Active confirmed Problem Seasonal allergy (752516660) Seasonal allergies (J30.2) Active confirmed Problem Body mass index 30+ - obesity (897640285) BMI 30.0-30.9,adult (Z68.30) Active confirmed Problem Chronic pain (42506838) Other chronic pain (G89.29) Active confirmed Problem Hyperlipidemia due to type 2 diabetes mellitus (disorder) (322115991709494) Hyperlipidemia associated with type 2 diabetes mellitus (E11.69) Active confirmed Problem Degeneration of cervical intervertebral disc (02788287) Degenerative disc disease, cervical (M50.30) Active confirmed Problem Cardiac pacemaker in situ (601968542) Status cardiac pacemaker (Z95.0) Active confirmed Problem Bilateral tinnitus (0149069447473) Tinnitus of both ears (H93.13) Active confirmed Problem Degeneration of thoracic intervertebral disc (91945681) Degenerative disc disease, thoracic (M51.34) Active confirmed Problem Irritable bowel syndrome (80503747) Irritable bowel syndrome (K58.9) Active confirmed Problem Mild intermittent asthma (981358119) Mild intermittent asthma without complication (J45.20) Active confirmed Problem Hyperglycemia due to type 2 diabetes mellitus (247619612463821) Diabetes mellitus with hyperglycemia (E11.65) Active confirmed Problem Obstructive sleep apnea syndrome (16446426) GREG (obstructive sleep apnea) (G47.33) Active confirmed Problem Body mass index 30.00 to 34.99 (475510657853352) BMI 31.0-31.9,adult (Z68.31) Active confirmed Problem Dyslipidemia (220524502) Dyslipidemia (E78.5) Active confirmed Problem Allergic rhinitis caused by pollen (60120780) Seasonal allergic rhinitis due to pollen (J30.1) Active confirmed Problem Type II diabetes mellitus without complication (618753761) Type 2 diabetes mellitus without complication, without long-term current use of insulin (E11.9) Active confirmed Problem Occlusion and stenosis of multiple and bilateral cerebral arteries (194069736) Bilateral carotid artery 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) Active confirmed Problem Lower urinary tract symptoms due to benign prostatic hypertrophy (78292773642827) Benign prostatic hyperplasia with lower urinary tract symptoms (N40.1) Active confirmed Problem Diffuse idiopathic skeletal hyperostosis (97085014) Diffuse idiopathic skeletal hyperostosis (M48.10) Active confirmed Problem Tamez's esophagus (770311185) 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) Active confirmed Problem Chronic atrial fibrillation (575489208) Chronic atrial fibrillation (I48.20) Active confirmed Vital Signs Heart Rate 74 /min 09/12/2024 Blood pressure diastolic 68 mm Hg 09/12/2024 Height 74 in 09/12/2024 Blood pressure systolic 122 mm Hg 09/12/2024 Weight 239.8 lbs 09/12/2024 BMI 30.79 kg/m2 09/12/2024 Encounters Encounter Location Date Provider Diagnosis [place] [address] [place] [id number] 03/07/2024 R Sp Kuhn Hyperlipidemia associated with type 2 diabetes mellitus E11.69 ; Diabetes mellitus with hyperglycemia E11.65 ; Screening for prostate cancer Z12.5 ; Trismus R25.2 and Encounter for immunization Z23 [facility] [address] [place] [id number] 08/15/2024 R Sp Kuhn Acute renal failure [...] circulatory complications E11.59 and BMI 30.0-30.9,adult Z68.30 [facility] [address] [place] [id number] 09/12/2024 R Sp Kuhn Hyperlipidemia associated with type 2 diabetes mellitus E11.69 ; Diabetes mellitus with hyperglycemia E11.65 ; A-fib I48.91 ; Status cardiac pacemaker Z95.0 and BMI 30.0-30.9,adult Z68.30 [facility] [address] [place] [id number] 02/08/2024 Santino Pisano GREG (obstructive sle ep apnea) G47.33 [facility] [address] [place] [id number] 03/12/2024 Richardson Kuhn [place] [address] [place] [id number] 03/28/2024 Santino Pisano [place] [address] [place] [id number] 09/12/2024 Santino Pisano GREG (obstructive sle ep apnea) G47.33 [facility] [address] [facility] [address] [place] [id number] 09/13/2024 Santino Pisano Assessments Encounter Date Diagnosis (ICD Code) Assessment Notes Treatment Notes Treatment Clinical Notes Section Notes 02/08/2024 GREG (obstructive sleep apnea) (ICD-10 - G47.33) 03/07/2024 Hyperlipidemia associated with type 2 diabetes mellitus (ICD-10 - E11.69) 03/07/2024 Diabetes mellitus with hyperglycemia (ICD-10 - E11.65) 08/15/2024 Acute renal failure (ICD-10 - N17.9) ----resolved 08/15/2024 C. difficile colitis (ICD-10 - A04.72) ----resolved 09/12/2024 Diabetes mellitus with hyperglycemia (ICD-10 - E11.65) 09/12/2024 GREG (obstructive sleep apnea) (ICD-10 - G47.33) 09/12/2024 Hyperlipidemia associated with type 2 diabetes mellitus (ICD-10 - E11.69) 09/12/2024 A-fib (ICD-10 - I48.91) 08/15/2024 Type [...] his appointment with the Coumadin clinic at [facility] next week 09/12/2024 Status cardiac pacemaker (ICD-10 [...] Plan Of Treatment Next Appt Details Provider Name:Richardson Lindsey apollo, 12/28/2024 10:00:00 AM, [address] [facility], [address], [place], [place], [id number], Provider Name:Richardson Lindsey apollo, 03/15/2025 09:00:00 AM, [address] [facility], [facility] [address], [place], [place], [id number], Insurance Providers Payer Name Payer Address Payer Phone Subscriber Number Group Number Insured Name Patient Relationship to Insured Coverage Start Date Coverage End Date MEDICARE PART B [address] [address] [place] [id number] RAFAELA SKINNER Self - patient is the insured [employer] [address] [place] [address] [id number] RAFAELA SKINNER Self - patient is the [...] Benign 12/2005 Colonoscopy, 6 Polyps Removed, Dr. Paddy patrick 02/2012; 05/2016 EGD/ Dr. Velasquez/ Tamez's esophagus Cholecystectomy 03/2012 Cardiac Pacemaker Changed 12/08/2012 Pacemaker Generator Replacement 03/23/20 22 Colonoscopy/ Allran/ tubular adenoma/ 2 yr f/u 06/18/23 Hospitalization History Reason Date(Month/Year) Elevated Blood Sugar- [facility] ER 05/2020 Vertigo- [facility] ER 10/2016
--- OUTSIDE RECORDS SUMMARY | 2024-12-08 09:23 | XMS_ITS | Encounter Summary ---
Author Organization [facility] Address [address] [place] [address] Care Team Providers Care Whipper Beater Name Role Phone Francisco Kuhn MD Primary Care Provider Encounter Details Date Type Department Care Team (Late st Contact Info) Description 05/21/2017 External CPT II SPACE PHYSICIST - [facility] Social History Tobacco Use [...] Description 07/03/2025 3:15 PM EST Office Visit [facility] [address] [facility] [address] [place] [phone] Khoi Reynoso MD [address] [facility] [address] [place] [address] documented as of this encounter Visit Diagnoses Not on filedocumented in this encounter Care Teams Whipper Beater Relationship Specialty Start Date End Date Francisco Kuhn MD [facility] [facility] [address] [place] [address] PCP - General 02/25/15 documented as of this encounter
[2024-12-08 09:40] LABS: PHA INR Fingerstick 2.7 (0.9-1.1)
== END 2024-12-08 09:43 ==
LOC: ACC 09:19
PROVIDERS: PCP Family Medicine; Visit Provider Family Medicine
DX: I48.91 Unspecified atrial fibrillation (principal); Z79.01 Long term (current) use of anticoagulants
CPT/HCPCS: 85610; 99211; G0463

== ENCOUNTER 2024-12-11 09:39 | Outpatient (POV) | payer MEDICARE, BC, SELFPAY ==
--- OUTSIDE RECORDS SUMMARY | 2024-03-07 05:00 | XMS_ITS ---
Author Organization [facility] Address [address] [place] [id number] Care Team Providers Care Layout Operator Name Role Phone Santino Pisano Primary Care Provider [phone] Richardson Kuhn [phone] Allergies Allergen (clinical drug ingredient) Drug/Non Drug [...] 30 Performing Lab: Notes/Report: Test performed by [facility], [address] [address] [facility] , [address], [place] [address] Ketan Zamora MD, Supervisor Forming And Tempering CLIA: [id number] Sodium 142 135-145 mmol/L Potassium 4.0 3.5-5.3 [...] 32 Performing Lab: Notes/Report: Test performed by [facility], [address] , [address], [place] [address] Ketan Zamora MD, Supervisor Forming And Tempering CLIA: [id number] Cholesterol 105 <200 mg/dL Triglycerides 181 <150 [...] Interpretation:Normal Performing Lab: Notes/Report: Test performed by [facility], [address] , [facility], [place] [address] Ketan Zamora MD, Supervisor Forming And Tempering CLIA: [id number] PSA 1.16 <4.00 ng/mL Please note this [...] due to type 2 diabetes mellitus (disorder) (574163241167247) Hyperlipidemia associated with type 2 diabetes mellitus (E11.69) Active confirmed Problem Diabetes mellitu s with hyperglycemia (E11.65) Active confirmed Vital Signs Blood pressure systolic 126 mm Hg 03/07/20 24 Blood pressure diastolic 62 mm Hg 024 Heart Rate 76 /min 03/07/2024 Height 74 in 03/07/2024 Weight 236.8 lbs 03/07/2024 BMI 30.40 kg/m2 03/07/2024 Encounters Encounter Location Date Provider Diagnosis [place] [address] [facility] [address] [facility] [address] [place], [place] [id number] 03/07/2024 Richardson Kuhn Hyperlipidemia associated with type 2 diabetes mellitus [...] Up: 6 Months, Reason: Provider Name:Richardson Dixon, 12/28/2024 10:00:00 AM, [address] [facility], [address], [place], [place], [phone], Provider Name:Richardson Snowden César et, 03/15/2025 09:00:00 AM, [address], [address], [place], [place], [phone], Progress Notes * RAFAELA SKINNERDOB:1950 (74 yo M)Acc No.[id number]:03/07/2024 Progress Notes Patient: RAFAELA BRITT Provider: Richardson Kuhn M.D. :1950 A ge:73 Y S ex:Male Date:03/07/2024 Address:[facility] [place], [id number] Pcp:Santino Pisano Subjective: * Chief Complaints: * 1 . 6 Month Check Up. 2. Needs laabs with PSA & flu vaccine. * HPI: C ardiology: Pt presents today for a 6 month check up. Needs refill on Montelukast and Albuterol. Pt would like this flu shot today. Pt is fasting today. He continues to follow with the Coumadin clinic at [facility] for monitoring his INR. E NT/respiratory: He [...] * Hospitalization/Major Diagno stic Procedure: V ertigo- [facility] ER 10/2016, Elevated Blood Sugar- [facility] ER 05/2020. * Family History: F ather: [...] * Procedure Codes: [address] [place], [address] CAPILLARY BLOOD DRAW, [address] GLYCATED HEMOGLOBIN TEST, Modifiers: QW * Follow Up: 6 Months * Images: Billing Information: * Visit Code: 26626 Office Visit, Est Pt., Level 4. * Procedure Codes: [address] [place]. [address] CAPILLARY BLOOD DRAW. [address] GLYCATED HEMOGLOBIN TEST. Modifiers: QW * Electronic signature of Richardson Kuhn MD on 12/11/2024 at 09:43 AM EDT Sign off status: Pending * Provider: Richardson Kuhn M.D. Date: Generated for Garry ng/Fajohng/eTransmitting on: 0 12/11/2024 09:43 AM EDT History and Physical Notes * HPI (History of Present Illness) Category Sub-Category Detail Notes Category Not es Cardiology He continues to follow with the Coumadin clinic at [facility] for monitoring his INR Examination Category Sub-Category [...]
--- OUTSIDE RECORDS SUMMARY | 2024-08-15 09:45 | XMS_ITS ---
Author Organization [facility] Address [address] [facility] [address] [place] [id number] Care Team Providers Care Procedures Tech Name Role Phone Santino Pisano Primary Care Provider Richardson Kuhn [phone] Allergies Allergen (clinical drug ingredient) Drug/Non Drug [...] dose same next check 1 week with [facility] Coumadin Clinic REASON FOR VISIT Discharge F/U from [facility] Medications Medication SIG (Take, Route, Frequency, Duration) [...] Problem COPD - Chronic obstructive pulmonary disease (68601518) COPD (chronic obstructive pulmonary disease) (J44.9) Active confirmed Problem Peripheral circulatory disorder associated with diabetes mellitus (488319729) 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 confirmed Problem Body mass index 30+ - obesity (542770068) BMI 30.0-30.9,adult (Z68.30) Active confirmed Vital Signs Blood pressure systolic 126 mm Hg 08/16/19 25 Blood pressure diastolic 60 mm Hg 025 Heart Rate 79 /min 08/15/2024 Height 74 in 08/15/2024 Weight 237.6 lbs 08/15/2024 BMI 30.5 kg/m2 08/15/2024 Encounters Encounter Location Date Provider Diagnosis [place] [address] [facility] [address] [place], [place] [id number] 08/15/2024 Richardson Kuhn Acute renal failure N17.9 [...] his appointment with the Coumadin clinic at [facility] next week 08/15/2024 Essential hypertension (ICD-10 [...] his appointment with the Coumadin clinic at [facility] next week Next Appt Details Follow Up: 3 Months, Reason: Provider Name:Richardson Dixon, 12/28/2024 10:00:00 AM, [address], [address], [place], [phone], Provider Name:Richardson Dixon, 03/15/2025 09:00:00 AM, [address], [address], [place], [id number], Progress Notes * RAFAELA SKINNERDOB:1950 (74 yo M)Acc No.[id number]:08/15/2024 Progress Notes Patient: RAFAELA BRITT MIYA Provider: Richardson Kuhn M.D. :1950 A ge:73 Y S ex:Male Date:08/15/2024 Address:[facility] [place], [id number] Pcp:Santino Pisano Subjective: * Chief Complaints: * 1 . Discharge F/U from [facility]. * HPI: H PI: He comes in today for follow-up on recent hospitalization at [facility] for C. difficile colitis, dehydration, and acute renal failure. He apparently had ongoing diarrhea at home for several days and became weak and fell striking his head. This prompted a visit to the [facility] ER. CT scan of the head was negative for intracranial bleeding but he was found to be dehydrated and acute renal failure with creatinine of 5 and supratherapeutic INR. He was then transferred to [facility] for nephrology consultation. I have reviewed available records from [place]. Stool studies confirmed the diagnosis of C. [...] * Hospitalization/Major Diagno stic Procedure: V ertigo- [facility] ER 10/2016, Elevated Blood Sugar- [facility] ER 05/2020. * Family History: F [...] circulatory complications - E11.59 1 0. B [place] 30.0-30.9,adult - Z68.30 Plan: * Treatment: * Labs: * L ab: PT/INR (in house) (Collection Date & Time - 08/15/2024) Value Reference Range P T 3.1 * I NR 36.7 * c urrent dose 7.5mg M,F; 10 mg AOD * n ew dose same * n ext check 1 week with [facility] Coumadin Clinic * Dilcia Proctor 08/15/2024 02:05 :26 PM > Provider reviewed results while patient in office. * Procedure Codes: G 2211 Complex e/[place], [address] PROTHROMBIN TIME, Modifiers: QW , 28538 CAPILLARY BLOOD DRAW, G8752 MOST RECENT SYSTOLIC BP < 140MM HG, G8754 MOST RECENT DIASTOLIC BP < 90MM HG * Follow Up: 3 Months * Images: Billing Information: * Visit Code: 39943 Office Visit, Est Pt., Level 4. * Procedure Codes: G2211 Complex e/[place]. [address] PROTHROMBIN TIME. Modifiers: QW 15932 CAPILLARY BLOOD DRAW. G8752 MOST RECENT SYSTOLIC BP < 140MM HG. G8754 MOST RECENT DIASTOLIC BP < 90MM HG. * Electronic signature of Richardson Kuhn MD on 12/11/2024 at 09:43 AM EDT Sign off status: Pending * Provider: Richardson Kuhn M.D. Date: 0 08/15/2024 Generated for Garry andrews/Jacob/Antoniaransmitting on: 0 12/11/2024 09:43 AM EDT History [...]
--- OUTSIDE RECORDS SUMMARY | 2024-09-12 05:00 | XMS_ITS ---
Author Organization [facility] Address [address] [place] [id number] Care Team Providers Care Slab Tripper Name Role Phone Santino Pisano Primary Care Provider Richardson Kuhn [phone] Allergies Allergen (clinical drug ingredient) Drug/Non Drug [...] Interpretation: Performing Lab: Notes/Report: Test performed by [facility] [address] [place] [address] , [address], [place] [address] Keatn Zamora MD, Jewelry Consultant CLIA: [id number] Sodium 139 135-145 mmol/L Potassium 4.0 3.5-5.3 [...] Interpretation: Performing Lab: Notes/Report: Test performed by [facility], [facility] [address] [place] [address] , [address], [place] [address] Ketan Zamora MD, Jewelry Consultant CLIA: [id number] Cholesterol 107 <200 mg/dL Triglycerides 178 <150 [...] Interpretation: Performing Lab: Notes/Report: Test performed by [facility], [address] , [facility], [place] [address] Ketan Zamora MD, Jewelry Consultant CLIA: [id number] Albumin/Creatinine Ratio, Urine 6 0-30 ug/m g [...] Encounters Encounter Location Date Provider Diagnosis [facility] [address] [place] [address] [address] [place] [id number] 09/12/2024 Richardson Kuhn Hyperlipidemia associated with type [...] Name:Richardson Lindsey apollo, 12/28/2024 10:00:00 AM, [facility] [address], [address], [place], [phone], Provider Name:Richardson Martinezdinahjass apollo, 03/15/2025 09:00:00 AM, [address] [place] [address], [address], [place], [phone], Progress Notes * RAFAELA SKINNERDOB:1950 (74 yo M)Acc No.[id number]:09/12/2024 Progress Notes Patient: Bro CASIMIRO RAFAELA HOLLIDAY Provider: Richardson Kuhn M.D. :1950 A ge:73 Y S ex:Male Date:09/12/2024 Address:[facility] [id number] Pcp:Santino Pisano Subjective: * Chief Complaints: * 1 . 6 months. 2. Needs labs. * HPI: C ardiology: The patient is here today for a check up. Pt states he is doing well and denies any new concerns. Pt states he is fasting. Pt states his last INR was on Wednesday at [facility] and it was 2.9. Denies [...] * Hospitalization/Major Diagno stic Procedure: V ertigo- [facility] ER 10/2016, Elevated Blood Sugar- [facility] ER 05/2020. * Family History: [...] G 2211 Complex e/[place], [address] GLYCATED HEMOGLOBIN TEST, Modifiers: QW , 3051F HG A1C>EQUAL 7.0%<8.0%, G8752 MOST RECENT SYSTOLIC BP < 140MM HG, G8754 MOST RECENT DIASTOLIC BP < 90MM HG * Follow Up: 6 Months * Images: Billing Information: * Visit Code: 57218 Office Visit, Est Pt., Level 4. * Procedure Codes: G2211 Complex e/[place]. [address] GLYCATED HEMOGLOBIN TEST. Modifiers: QW 3051F HG A1C>EQUAL 7.0%<8.0%. G8752 MOST RECENT SYSTOLIC BP < 140MM HG. G8754 MOST RECENT DIASTOLIC BP < 90MM HG. * Electronic signature of Richardson Kuhn MD on 12/11/2024 at 09:43 AM EDT Sign off status: Pending * Provider: Richardson Kuhn M.D. Date: 0 09/12/2024 Generated for Calini juliana/Jacob/eTransmitting on: 0 12/11/2024 09:43 AM EDT History [...]
--- OUTSIDE RECORDS SUMMARY | 2024-10-19 15:30 | XMS_ITS | Encounter Summary ---
[facility] [address] [place] [address] Care Team Providers Care Education Supervisor Name Role Phone Francisco Kuhn MD Primary Care Provider Reason for Visit * Reason Comments Coronary artery disease involving sa[place]attle coronary artery of Encounter Details Date Type Department Care Team (Late st Contact Info) Description 10/19/2024 3:30 PM EDT Office Visit [facility] [address] [place] [address] [place] [address] Glenn Lovett MD [address] [place] [address] Coronary artery disease involving sauk-[place] coronary artery of [place] heart without angina pectoris (Primary Dx); Primary [...] Lovett MD - 10/19/2024 3:30 PM EDT [facility] Cardiology Office Progress Note Glenn Skinner [address] [place] [address] Visit Date: 10/19/24 PCP: Francisco Kuhn MD [facility] [address] [place] [address] IDENTIFICATION: 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 Former vargas Hernandez, ab pt. PROBLEM LIST: [...] pausing, Holter - 12/01/2003. Biventricular pacemaker implantation, [facility] [place], 03/13/2004; Guidant model 4538 set at VVI [...] Patient presents with Coronary artery disease involving sa[place] coronary artery of Allergies Allergies Allergen Reactions [...] Diagnosis Plan 1. Coronary artery disease involving [place] coronary artery of [place] heart without angina pectoris 2. Primary hypertension 3. Mixed hyperlipidemia 4. Permanent atrial fibrillation PLAN: CAD nonischemic cardiomyopathy post ICD [place] Heart Association class III/CHF continue GDMT CAD nonobstructive continued medical management low threshold for invasive ischemic evaluation withany anginal equivalent Hypertension controlled currently tamsulosin losartan chlorthalidone Mixed dyslipidemia controlled on statin therapy Diabetes on oral agents Chronic A. fib post AV node ablation on warfarin Glenn Lovett MD, [facility] documented in this encounter Plan of Treatment Upcoming Encounters Date Type Department Care Team (Late st Contact Info) Description 07/03/2025 3:15 PM EST Office Visit [facility] [address] [facility] [address] [place] [address] Khoi Reynoso MD [address] [facility] [address] [place] [address] documented as of this encounter Visit Diagnoses Diagnosis Coronary artery disease involving [place] coronary artery of [place] heart without angina pectoris- Primary Primary hypertension Unspecified essential hypertension Mixed hyperlipidemia Permanent atrial fibrillation Atrial fibrillation documented in this encounter Care Teams Education Supervisor Relationship Specialty Start Date End Date Francisco Kuhn MD [facility] [address] [facility] [place] [address] PCP - General 02/25/15 documented as of this encounter
--- OUTSIDE RECORDS SUMMARY | 2024-12-11 09:45 | XMS_ITS | Encounter Summary ---
Author Organization [facility] Address [address] [place] [id number] Care Team Providers Care Photo Machine Operator Name Role Phone Francisco Kuhn [...] Description 07/03/2025 3:15 PM EST Office Visit [facility] [address] [facility] [address] [place] [address] Khoi Reynoso MD [address] [facility] [address] [place] [address] documented as of this encounter Visit Diagnoses Not on filedocumented in this encounter Care Teams Photo Machine Operator Relationship Specialty Start Date End Date Francisco Kuhn MD [address] [facility] [address] [facility] [address] [place] [address] PCP - General 02/25/15 documented as of this encounter
--- OUTSIDE RECORDS SUMMARY | 2024-12-11 09:45 | XMS_ITS | Clinical Summary ---
Author Organization [facility] Address [address] [place] [address] Care Team Providers Care Membership Sales Representative Name Role Phone Francisco Kuhn MD Primary Care Provider +1- [phone] Medications methocarbamol (Robaxin) 750 MG tablet Take [...] 1997 UKY-Zoster Vaccines (1 of 2) 2002 [id number] Vaccine (1 - 2023- season) 2024 UKY-Influenza [...] to complete this topic Insurance [place] X[place] [id number] [place] [address] ANTHEM Care Teams Membership Sales Representative Relationship Specialty Start Date End Date Francisco Kuhn MD [address] [place] [address] PCP - General 09/20/20
--- OUTSIDE RECORDS SUMMARY | 2024-12-11 09:45 | XMS_ITS | Clinical Summary ---
[facility] Address [address] [place] [id number] Care Team Providers Care Motion Picture Set Grip Name Role Phone Francisco Kuhn MD Primary [...] Description 10/19/2024 3:30 PM EDT Office Visit [facility] CARDI[facility] [address] [place] [address] [place] [address] Glenn Lovett MD Coronary artery disease involving lac vieux coronary artery of lac vieux heart without angina pectoris (Primary Dx); Primary hypertension; Mixed hyperlipidemia; Permanent atrial fibrillation 10/19/2024 Travel 09/19/2024 Refill [facility] [address] [place] [address] [address] [place] [address] Glenn Lovett MD Med Refill [...] Description 07/03/2025 3:15 PM EST Office Visit [facility] [address] [facility] [address] [place] [phone] Khoi Reynoso MD [address] [facility] [address] [place] [id number] Health Maintenance Due Date Last Done Comments [...] 05/26/2019, 05/10 Medical Devices Implanted Type Area Ditcher Operator Device Identifier Shelf Expiration Date Model / Serial / Lot Env Pm Aigisrx Antibac Resorb 2.9x3.3in Lg - [id number] Implanted:Qty: 1 on 03/23/2022 by Khoi Reynoso MD at [facility] Implant [employer] 11/29/2022 [id number] / / [id number] Hemost Abs Surgicel Pwdr 3gm - [id number] Implanted:Qty: 1 on 03/23/2022 by Khoi Reynoso MD at [facility] Implant [employer] DIV [employer] J AND J 06/09/2023 [id number] / / [id number] Pacemaker-12/28 Implanted:12/09 by Yvon Hirsch MD (Quantity not on file) Pacemaker BS V173 INVIVE ENDO TECH-P / [id number] / Gen Pm Visionist Eviscerator/P 15.2cc U225 - [id number] - [id number] Implanted:Qty: 1 on 03/23/2022 by Khoi Reynoso MD at [facility] Pacemaker Flight Steward MADI 01/05/2024 [id number] / [id number] / [facility] Care Teams Motion Picture Set Grip Relationship Specialty Start Date End Date Francisco Kuhn MD [address] [place] [facility] [address] [place] [id number] PCP - General 02/25/15
--- OUTSIDE RECORDS SUMMARY | 2024-12-11 09:45 | XMS_ITS | Encounter Summary ---
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
--- OUTSIDE RECORDS SUMMARY | 2024-12-11 09:45 | XMS_ITS | Patient Health Record ---
Author Organization [facility] Address [address] [facility] [address] [place] [id number] Care Team Providers Care Boiler Control Technician Name Role Phone Santino Pisano Primary Care Provider [phone] Richardson Kuhn [phone] Allergies Allergen (clinical drug ingredient) Drug/Non Drug [...] 30 Performing Lab: Notes/Report: Test performed by [facility] [facility] , [address], [place] [address] Ketan Zamora MD, Tire Wrapper CLIA: [id number] Sodium 142 135-145 mmol/L Potassium 4.0 3.5-5.3 [...] 32 Performing Lab: Notes/Report: Test performed by [facility] [address] , [address], [place] [address] Ketan Zamora MD, Tire Wrapper CLIA: [id number] Cholesterol 105 <200 mg/dL Triglycerides 181 <150 [...] Interpretation:Normal Performing Lab: Notes/Report: Test performed by [facility] [address] , [place] [address] Ketan Zamora MD, Tire Wrapper CLIA: [id number] PSA 1.16 <4.00 ng/mL Please note this [...] dose same next check 1 week with [facility] Glycohemoglobin A1c (in hous e) Reviewed date:09/13/2024 10:29:03 PM Interpretation:7.6% Performing Lab: Notes/Report: 7.6% glycohemoglobin 7.6% 5 - 6.5 % P-Comprehensive Metabolic Pa guicho (CMP) Reviewed date:09/13/2024 10:37:03 PM Interpretation: Performing Lab: Notes/Report: Test performed by [facility] [address] [place] [address] [address], [place] [address] Ketan aZmora MD, Tire Wrapper CLIA: [id number] Sodium 139 135-145 mmol/L Potassium 4.0 3.5-5.3 [...] Interpretation: Performing Lab: Notes/Report: Test performed by [facility] [address] [place] [address] [address], [place] [address] Ketan Zamora MD, Tire Wrapper CLIA: [id number] Cholesterol 107 <200 mg/dL Triglycerides 178 <150 [...] Interpretation: Performing Lab: Notes/Report: Test performed by [facility] [address] [place] [address] , [place] [address] Ketan Zamora MD, Tire Wrapper CLIA: [id number] Albumin/Creatinine Ratio, Urine 6 0-30 ug/mg Microalbumin, Urine, Random 0.4 Creatinine, Urine 61.7 H-INR Reviewed date:09/10/2024 01:27:52 PM Interpretation: Performing [...] SYSTEMIC EMBOLISM SECONDARY TO AMI H-INR Reviewed date:12/08/2024 10:21:43 AM Interpretation: Performing Lab: Notes/Report: POCINRFS 2.7 0.9-1.1 Results sent to: Francisco Kuhn MD Pharmacist recommendation for Warfarin therapy is: INR TODAY VIA FINGERSTICK IS 2.7. RECOMMEND CONTINUING CURRENT WEEKLY WARFARIN DOSE OF 7.5MG MO/WE/FR AND 10MG ALL OTHER DAYS. PATIENT WILL F/U IN 6 WEEKS. FOR [...] 7.5 MG ON MON/WED; 10 MG ON WED/WED/WED/TISHA/SAT. WILL FOLLOW UP [...] PATIENT CONTINUE WITH WARFARIN 7.5 MG ON MON/WED/WED; 10 MG ON SUN/E/TISHA/SAT. WILL FOLLOW UP IN 6 WEEKS. FOR [...] WARFARIN 7.5 MG ON WED/WED/WED; 10 MG SUN/TUE/TISHA/SAT. FOR DETAILED INFORMATION-PLEASE REVIEW [...] Peripheral circulatory disorder associated with diabetes mellitus (199676330) 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 confirmed Problem Long-term current use of anticoagulant (361421494) terminologist current use of anticoagulants with INR goal of 2.0-3.0 (Z79.01) Active confirmed Problem COPD - Chronic obstructive pulmonary disease (10656147) COPD (chronic obstructive pulmonary disease) (J44.9) Active confirmed Problem Essential hypertension (33031634) Essential hypertension (I10) Active confirmed Problem Seasonal allergy (504957825) Seasonal allergies (J30.2) Active confirmed Problem Body mass index 30+ - obesity (099402395) BMI 30.0-30.9,adult (Z68.30) Active confirmed Problem Chronic pain (46079268) Other chronic pain (G89.29) Active confirmed Problem Hyperlipidemia due to type 2 diabetes mellitus (disorder) (376442579014942) Hyperlipidemia associated with type 2 diabetes mellitus (E11.69) Active confirmed Problem Degeneration of cervical intervertebral disc (09231060) Degenerative disc disease, cervical (M50.30) Active confirmed Problem Cardiac pacemaker in situ (809858707) Status cardiac pacemaker (Z95.0) Active confirmed Problem Bilateral tinnitus (3553377351791) Tinnitus of both ears (H93.13) Active confirmed Problem Degeneration of thoracic intervertebral disc (56195151) Degenerative disc disease, thoracic (M51.34) Active confirmed Problem Irritable bowel syndrome (20255581) Irritable bowel syndrome (K58.9) Active confirmed Problem Mild intermittent asthma (372934293) Mild intermittent asthma without complication (J45.20) Active confirmed Problem Hyperglycemia due to type 2 diabetes mellitus (867073920788063) Diabetes mellitus with hyperglycemia (E11.65) Active confirmed Problem Obstructive sleep apnea syndrome (08418064) GREG (obstructive sleep apnea) (G47.33) Active confirmed Problem Body mass index 30.00 to 34.99 (435098639391174) BMI 31.0-31.9,adult (Z68.31) Active confirmed Problem Dyslipidemia (150183523) Dyslipidemia (E78.5) Active confirmed Problem Allergic rhinitis caused by pollen (96193020) Seasonal allergic rhinitis due to pollen (J30.1) Active confirmed Problem Type II diabetes mellitus without complication (436722371) Type 2 diabetes mellitus without complication, without long-term current use of insulin (E11.9) Active confirmed Problem Occlusion and stenosis of multiple and bilateral cerebral arteries (836607619) Bilateral carotid artery 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) Active confirmed Problem Lower urinary tract symptoms due to benign prostatic hypertrophy (43165922873960) Benign prostatic hyperplasia with lower urinary tract symptoms (N40.1) Active confirmed Problem Diffuse idiopathic skeletal hyperostosis (18426176) Diffuse idiopathic skeletal hyperostosis (M48.10) Active confirmed Problem Tamez's esophagus (563761635) 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) Active confirmed Problem Chronic atrial fibrillation (335343827) Chronic atrial fibrillation (I48.20) Active confirmed Vital Signs Heart Rate 74 /min 09/12/2024 Blood pressure diastolic 68 mm Hg 09/12/2024 Height 74 in 09/12/2024 Blood pressure systolic 122 mm Hg 09/12/2024 Weight 239.8 lbs 09/12/2024 BMI 30.79 kg/m2 09/12/2024 Encounters Encounter [facility] Date [facility] [address] [id number] 03/07/2024 Richardson Kuhn Hyperlipidemia associated with type 2 diabetes mellitus E11.69 ; Diabetes mellitus with hyperglycemia E11.65 ; Screening for prostate cancer Z12.5 ; Trismus R25.2 and Encounter for immunization Z23 [facility] [address] [place] [id number] 08/15/2024 Richardson Kuhn Acute renal failure N17.9 [...] circulatory complications E11.59 and BMI 30.0-30.9,adult Z68.[address] [place], [place] [id number] 09/12/2024 Richardson Kuhn Hyperlipidemia associated with type 2 diabetes mellitus E11.69 ; Diabetes mellitus with hyperglycemia E11.65 ; A-fib I48.91 ; Status cardiac pacemaker Z95.0 and BMI 30.0-30.9,adult Z68.30 [facility] [address] [facility] [address] [place], [place] [id number] 02/08/2024 Santino Pisano GREG (obstructive sle ep apnea) G47.33 [facility] [address] [facility] [address] [place], [place] [id number] 03/12/2024 Richardson Kuhn [facility] [address] [facility] [address] [place], [place] [id number] 03/28/2024 Santino Pisano [facility] [address] [facility] [address] [place], [place] [phone] 09/12/2024 Santino Pisano GREG (obstructive sle ep apnea) G47.33 [facility] [address] [facility] [address] [place], [place] [id number] 09/13/2024 Santino Pisano Assessments Encounter Date Diagnosis [...] his appointment with the Coumadin clinic at [facility] next week 09/12/2024 Status cardiac pacemaker (ICD-10 [...] Of Treatment Next Appt Details Provider Name:Richardson Dixon, 12/28/2024 10:00:00 AM, [address] [facility] [address] [facility], [facility] [address], [place], [id number], Provider Name:Richardson Dixon, 03/15/2025 09:00:00 AM, 12[address] [facility] [address] [facility], [facility] [address], [place], [place], [id number], Insurance Providers Payer Name Payer Address Payer Phone Subscriber Number Group Number Insured Name Patient Relationship to Insured Coverage Start Date Coverage End Date MEDICARE PART B [address] [address] [place] [phone] [id number] RAFAELA SKINNER Self - patient is the insured [employer] [address] [place] [address] [id number] RAFAELA SKINNER Self - patient is the [...] Hospitalization History Reason Date(Month/Year) Elevated Blood Sugar- [facility] ER 05/2020 Vertigo- [facility] ER 10/2016
--- OUTSIDE RECORDS SUMMARY | 2024-12-11 09:45 | XMS_ITS | Encounter Summary ---
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 - [facility] Social History Tobacco Use [...] Description 07/03/2025 3:15 PM EST Office Visit [facility] [address] [facility] [address] [place] [address] Khoi Reynoso MD [address] [facility] [address] [place] [address] documented as of this encounter Visit Diagnoses Not on filedocumented in this encounter Care Teams Gas Line Installer Supervisor Relationship Specialty Start Date End Date Francisco Kuhn MD [address] [facility] [address] [place] [address] PCP - General 02/25/15 documented as of this encounter
[2024-12-11 10:28] VITALS: BP 131/63; PULSE 75; RESP 14; O2SAT 99; BMI 29.9
--- NOTE | 2024-12-11 10:33 | EXP.PAIN.SOA ---
[facility] Disclaimer: The information contained in this section may have been updated after the patient was seen, as this information can be updated by other users. Medical History Trismus Cheek mass Hyperlipidemia Hypertension Atrial fibrillation History of COPD Asthma History of pacemaker COPD (chronic obstructive pulmonary disease) Obstructive sleep apnea syndrome Allergic rhinitis, unspecified Pulmonary emphysema Dyspnea on exertion Surgical History History of colonoscopy History of breast lump removal History of hernia surgery History of cholecystectomy Family History Other Asthma Diabetes Family history of pacemaker Heart attack Hypertension Lung cancer Social History Smoking Status: Never smoker alcohol intake: current substance use type: denies use current occupational status: other Travel in the last 8 weeks?: None household members: spouse housing: apartment current occupational exposures/hazards: No caffeine: No PM Subjective & Objective Subjective Subjective:: Patient is a pleasant 74-year-old male who presents today for his monthly medication refill. He rates his pain today an 8 out of 10. He denies any new falls. He is doing well with his medications of Kewanna 7.5 mg 5 times a day, Lyrica 100 mg 3 times a day and compounded cream. He denies any side effects or changes to his pharmacy. His Nicolas has been reviewed and is appropriate. Review of Systems: General: No recent weight changes, no fever, no sleep disturbances Respiratory: No cough, no shortness of air, no recurring pulmonary infections Cardiovascular/peripheral vascular: No chest pain, no palpitations, no edema, no shortness of breath Gastrointestinal: No new onset incontinence, normal bowel movements reported Genitourinary: No new onset incontinence Musculoskeletal: [Low back pain psychiatric: [Normal mood/affect] Neurological: [Denies weakness in extremities], [denies balance issues] Pain at rest (0-10 scale): 8 Objective Objective:: Physical Exam: General: Alert and oriented x3, no acute distress, pleasant and cooperative Lungs: Respirations even and unlabored, symmetrical chest expansion Eyes: PERRL Musculoskeletal: Flexion and extension of lumbar [spine] somewhat guarded secondary to pain, [antalgic gait noted] Neurological: Speech clear, no gross sensory deficit Has patient had previous pain injection?: No Conservative treatment options previously tried: Home exercise plan Length of treatment: Longer than 12 weeks Meds Home Medications and Allergies Home Medications ?Medication ?Instructions ?Recorded ?Confirmed ?Type aspirin 81 mg tablet,delayed 81 mg PO DAILY Blood thinner 02/22/18 12/11/24 History release fenofibrate micronized 134 mg 145 mg PO DAILY Cholesterol 02/22/18 12/11/24 History capsule omeprazole 20 mg capsule,delayed 20 mg PO DAILY GERD 02/22/18 12/11/24 History release tamsulosin 0.4 mg capsule 0.4 mg PO HS bladder 02/22/18 12/11/24 History tizanidine 4 mg capsule 4 mg PO DAILY muscle relaxer 02/22/18 12/11/24 History chlorthalidone 25 mg tablet 25 mg PO DAILY HTN 03/11/20 12/11/24 History losartan 100 mg tablet 100 mg PO DAILY HTN 03/11/20 12/11/24 History potassium chloride 10 mEq 10 meq PO DAILY supp. 03/11/20 12/11/24 History capsule,extended release rosuvastatin 40 mg tablet 40 mg PO DAILY Cholesterol 06/11/20 12/11/24 History glimepiride 2 mg tablet 2 mg PO DAILY Diabetes 05/12/21 12/11/24 History warfarin 5 mg tablet See Rx Instructions .Route 12/11/21 12/11/24 History .COMPLEX Blood thinner fluticasone propionate 50 1 spray intranasal DAILY ALLERGIES 01/18/23 12/11/24 History mcg/actuation nasal spray,suspension (Flonase Allergy Relief) montelukast 10 mg tablet 10 mg PO DAILY ALLERGIES 01/18/23 12/11/24 History (Singulair) budesonide-formoterol HFA 160 2 puff inhalation BID 90 days 04/12/23 12/11/24 Rx mcg-4.5 mcg/actuation aerosol #10.2 grams inhaler (Symbicort) carvedilol 6.25 mg tablet 6.25 mg PO DIRECTED BLOOD 07/27/23 12/11/24 History PRESSURE albuterol sulfate 90 mcg/actuation See Rx Instructions .Route 09/28/23 12/11/24 Rx aerosol inhaler .COMPLEX #8.5 grams amlodipine 10 mg tablet 10 mg PO DIRECTED BLOOD PRESSURE 02/21/24 12/11/24 History azelastine 137 mcg (0.1 %) nasal 1 spray intranasal DIRECTED . 02/21/24 12/11/24 History spray dapagliflozin propanediol 10 mg 10 mg PO DIRECTED Diabetes 02/21/24 12/11/24 History tablet (Farxiga) metformin 500 mg tablet,extended 500 mg PO DAILY Diabetes 02/29/24 12/11/24 History release 24 hr tizanidine 4 mg tablet 4 mg PO DIRECTED Pain 02/29/24 12/11/24 History hydrocodone 7.5 mg-acetaminophen 1 tab PO 5XDAY #150 tabs 11/08/24 12/11/24 Rx 325 mg tablet pregabalin 100 mg capsule 100 mg PO TID Pain #90 caps 11/08/24 12/11/24 Rx New Prescriptions to Start Prescriptions: Allergies Allergy/AdvReac Type Severity Reaction Status Date / Time levofloxacin Allergy Intermediate SWELLING Verified 04/03/24 09:42 AT SITE OF INJECTION Assessment and Plan *Assessment and plan (1) Degenerative disc disease, lumbar: Status: Acute Qualifiers: Disc-related pain type: discogenic back pain and lower extremity pain Qualified Code(s): M51.362 - Other intervertebral disc degeneration, lumbar region with discogenic back pain and lower extremity pain Category: Medical Code(s): M51.369 - Other intervertebral disc degeneration, lumbar region without mention of lumbar back pain or lower extremity pain (2) Lumbar radiculopathy: Status: Acute Category: Medical Code(s): M54.16 - Radiculopathy, lumbar region Plan We will refill his Kewanna and pregabalin and provide a 1 month supply of this medication. Patient will return to clinic in 1 month for reevaluation of symptoms and plan of care. Risks and benefits of the medication have been explained in detail to the patient. The patient does understand the risk of dependence on the medication when given over a prolonged period. Patient has been advised of risks of oversedation with the prescribed medication. Narcan has been offered to the paitent in the event of oversedation. Patient has been advised that a family member should also be educated regarding administration of Narcan. The patient has been advised to consult with his/her primary care provider and pharmacist regarding drug-drug interaction of medications currently prescribed. Patient has been prescribed a controlled substance after being counseled on the medication, medication safety, and possible side effects. Opioid contract was reviewed and signed by the patient, and that they have agreed to all of the terms set forth by our compliance program. A UDS is needed to verify patient's compliance with our office pain contract. This is ordered based off specific treatments related to chronic pain with the potential to abuse certain medications. Patient has been instructed to contact the clinic with any concerns before the next appointment. Dr. Martel has reviewed this note and agrees with this plan of care. This note was dictated using voice recognition software and make contain errors or omissions.
== END 2024-12-11 23:59 | disposition home or self-care (01) ==
PROVIDERS: PCP Family Medicine; Visit Provider Nurse Practitioner Family
DX: M51.16 Intervertebral disc disorders with radiculopathy, lumbar region (principal); Z79.899 Other long term (current) drug therapy; Z79.891 Long term (current) use of opiate analgesic
CPT/HCPCS: 99212; G0463

== ENCOUNTER 2025-01-19 09:19 | Outpatient (CLI) | payer MEDICARE, BC, SELFPAY ==
--- OUTSIDE RECORDS SUMMARY | 2023-09-03 05:00 | XMS_ITS ---
Author Organization [facility] Address [address] [place] [id number] Care Team Providers [employer] Cook Name Role Phone Santino Pisano Primary Care Provider Bernardino [place] Unavailable [phone] Allergies Allergen (clinical drug ingredient) Drug/Non Drug Allergy documented on EMR Reaction Allergy Type Onset Date Status Levaquin neuropathy Drug Allergy Active metoprolol Metoprolol headache Drug Allergy Activ e vancomycin Vancomycin Unknown Drug Allergy Activ e Results Component Value Reference Range Notes PT/INR (in house) Reviewed date:09/03/2023 10:37:48 AM Interpretation: Performing Lab: Notes/Report: INR 3.4 current dose 10mg daily new dose 7.5mg Wed, 10mg AOD next check 2 weeks with [facility] ideal INR 2-3 Glucose (In-House) Reviewed date:09/03/2023 10:37:36 AM Interpretation: Performing Lab: Notes/Report: blood glucose 168 74 - 106 mg/dL Glycohemoglobin A1c (in hous e) Reviewed date:09/03/2023 10:37:26 AM Interpretation: Performing Lab: Notes/Report: glycohemoglobin 8.2% 5 - 6.5 % P-Comprehensive Metabolic Pa guicho (CMP) Reviewed date:09/06/2023 09:51:37 AM Interpretation:gluc 149, alk phos 29 Performing Lab: Notes/Report: Test performed by [facility] [address] [facility] , [address], [place] [address] Ketan Zamora MD, Soaker CLIA: [id number] Sodium 139 135-145 mEq/L Potassium 4.1 3.5-5.3 mEq/L Chloride 101 97-108 mEq/L CO2 27 22-32 mEq/L Glucose 149 65-99 mg/dL BUN 18 8-23 mg/dL Creatinine 0.94 0.70-1.30 mg/dL Calcium 10.3 8.6-10.4 mg/dL eGFR by Creatinine 87 >59 mL/min/1.73m2 Protein 7.2 6.0-8.3 g/dL Albumin 4.6 3.5-5.3 g/dL Alkaline Phosphatase 29 40-129 IU/L ALT (SGPT) 29 <5-55 IU/L AST (SGOT) 39 <5-46 IU/L Bilirubin, Total 0.7 <0.2-1.2 mg/dL A/G Ratio 1.8 1.1-2.5 mg/dL P-Lipid Panel Reviewed date:09/06/2023 09:51:37 AM Interpretation:trig 200, hdl 32 Performing Lab: Notes/Report: Test performed by [facility], [address] , [address], [place] [address] Ketan Zamora MD, Soaker CLIA: [id number] Cholesterol 103 <200 mg/dL Triglycerides 200 <150 mg/dL HDL Cholesterol 32 >39 mg/dL Cholesterol / HDL Ratio 3.22 0.00-4.99 Ratio Non-HDL Cholesterol 71 <130 mg/dL LDL Cholesterol (Calculation) 31 <130 mg/dL LDL Cholesterol Levels* Less than 100 mg/dL Optimal 100 to 129 mg/dL Near Optimal/ Above Optimal 130 to 159 mg/dL Borderline High 160 to 189 mg/dL High 190 mg/dL and above Very High * Categories as recommended by the 2004 ATPIII guidelines LDL/HDL Ratio 1.0 <3.3 Ratio ____ LDL Cholesterol Patient History ____ Test Date: 09/03/2022 LDL Results: 40 Units: mg/dL % Change: +5% ---- Test Date: 03/04/2023 LDL Results: 37 Units: mg/dL % Change: -7% ---- Test Date: 09/03/2023 LDL Results: 31 Units: mg/dL % Change: -16% ____ P-TSH reflex to FT4 Reviewed date:09/06/2023 09:51:37 AM Interpretation:Normal Performing Lab: Notes/Report: Test performed by [facility] [address] [place], [place] [address] [address] , [address], [place] [address] Ketan Zamora MD, Soaker CLIA: [id number] TSH reflex to FT4 4.73 0.43-5.25 mU/L P-Microalbumin/Creatinine, R andom Urine Sample Reviewed date:09/06/2023 09:51:38 AM Interpretation:Normal Performing Lab: Notes/Report: Test performed by [facility] [address] [place] [address] , [address], [place] [address] Ketan Zamora MD, Soaker CLIA: [id number] Albumin/Creatinine Ratio, Urine 7 0-30 ug/mg Microalbumin, Urine, Random 0.6 Creatinine, Urine 90.8 REASON FOR VISIT 6 months Medications Medication SIG (Take, Route, Frequency, Duration) Notes Start Date End Date Status Glimepiride 2 MG 1 tab(s) orally 2 times a day Active Fenofibrate Micronized 134 MG TAKE 1 CAPSULE BY MOUTH ONCE DAILY; Duration: 30 Active metFORMIN HCl ER 500 MG TAKE 2 TABLETS B Y MOUTH TWICE DAILY WITH FOOD Active Carvedilol 6.25 MG 1 tablet with food Orally Twice a day Active Tamsulosin HCl 0.4 MG TAKE 1 CAPSULE BY MOUTH ONCE DAILY; Duration: 30 Active tiZANidine HCl 4 MG TAKE 1 TABLET BY MOUTH AT BEDTIME; Duration: 30 days Active Potassium Chloride ER 10 MEQ TAKE 1 CAPSULE BY MOUTH ONCE DAILY; Duration: 30 Active Farxiga 10 MG 1 tablet Orally Once a day; Duration: 30 day(s) 09/03/2023 Active Betamethasone Dipropionate Aug 0.05 % 1 adela applied topically 2 times a day 01/29/2022 Active Dicyclomine HCl 10 MG 1 cap(s) orally Tw o times a day 07/28/2022 Active Azelastine HCl 137 MCG/SPRAY 2 spray(s) intranasally 2 times a day Active DIABETIC SHOES DIRECTED DIRECTED 09/03/2022 Active Fluticasone Propionate 50 MCG/ACT 2 spray(s) intranasally once a day 07/05/2015 Active Cetirizine HCl 10 MG 1 tab(s) orally onc e a day Active Pregabalin 75 MG 1 cap(s) orally once daily Active Symbicort 160-4.5 MCG/ACT INHALE 2 PUFFS BY MOUTH 2 TIMES A DAY (RINSE MOUTH AFTER USE) Active Magnesium Oxide 400 MG 1 tab(s) orally o nce a day Active Aspirin 81 81MG DIRECTED QD Active HYDROcodone-Acetaminoph en 7.5-325 MG 1 tab(s) orally bid Active Meclizine HCl 12.5 MG 1 tab(s) orally 3 times a day prn 06/28/2019 Active Astepro 205.5 MCG/SPRAY 1 spray(s) intranasally 2-4 times a day; Duration: 30 day(s) 11/22/2019 Active Albuterol Sulfate HFA 108 (90 Base) MCG/ACT 2 puff(s) inhaled every 6 hours; Duration: 30 day(s) Active Chlorthalidone 25 MG 1 tab(s) orally onc e a day Active Cozaar 100 MG 1 tab(s) orally once a day Active Warfarin Sodium 5 MG TAKE 2 TABLETS BY MOUTH ONCE DAILY Active Rosuvastatin Calcium 40 MG 1/2 tab(s) orally once a day per Dr Lovett 06/04/2020 Active CPAP Supplies - as directed as directed 09/03/2023 Active amLODIPine Besylate 5 MG 1 tab(s) orally once a day Active Vital Signs Blood pressure systolic 130 mm Hg 09/03/19 24 Blood pressure diastolic 62 mm Hg 024 Heart Rate 82 /min 09/03/2023 Height 74 in 09/03/2023 Weight 243 lbs 09/03/2023 BMI 31.20 kg/m2 09/03/2023 Encounters Encounter Location Date Provider [facility] [address] [id number] 09/03/2023 Bernardino [place] Type 2 diabetes dony itus without complication, without long-term current use of insulin E11.9 ; Essential hypertension I10 ; Dyslipidemia E78.5 ; GREG (obstructive sleep apnea) G47.33 ; Chronic atrial fibrillation I48.20 and half-way current use of therapeutic drug Z79.899 Assessments Encounter Date Diagnosis (ICD Code) Assessment Notes Treatment Notes Treatment Clinical Notes Section Notes 09/03/2023 Type 2 diabetes mellitus without complication, without long-term current use of insulin (ICD-10 - E11.9) Not at goal today 09/03/2023 Essential hypertension (ICD-10 - I10) 09/03/2023 Dyslipidemia (ICD-10 - E78.5) 09/03/2023 GREG (obstructive sleep apnea) (ICD-10 - G47.33) 09/03/2023 Chronic atrial fibrillation (ICD-10 - I48.20) 09/03/2023 half-way current use of therapeutic drug (ICD-10 - Z79.899) Plan Of Treatment Medication Medication Name Sig Start Date Stop Date Notes Glimepiride 2 MG 1 tab(s) orally 2 ti mes a day metFORMIN HCl ER 500 MG TAKE 2 TABLETS B Y MOUTH TWICE DAILY WITH FOOD Carvedilol 6.25 MG 1 tablet with food Orally Twice a day Farxiga 5 MG TAKE 1 TABLET BY ALEJANDRO TH ONCE DAILY Farxiga 10 MG 1 tablet Orally Once a day; Duration: 30 day(s) 09/03/2023 Chlorthalidone 25 MG 1 tab(s) orally onc e a day Cozaar 100 MG 1 tab(s) orally once a day Warfarin Sodium 5 MG TAKE 2 TABLETS BY M OUT ONCE DAILY Rosuvastatin Calcium 40 MG 1/2 tab(s) or ally once a day 06/04/[address] Lovett CPAP Supplies - as directed as directed 09/03/2023 amLODIPine Besylate 5 MG 1 tab(s) orally once a day Treatment Notes Assessment Notes Type 2 diabetes mellitus wit hout complication, without long-term current use of insulin Not at goal today Next Appt Details Follow Up: [address] Santamaria, Reason: Provider Name:Richardson Dixon, 03/15/2025 09:00:00 AM, [address], [address], [phone], Progress Notes * LINDA RAFAELA HOLLIDAYDOB:1950 (74 yo M)Acc No.[id number]:09/03/2023 Progress Notes Patient: RAFAELA BRITT Provider: Bro [place] M.D. :1950 A ge:72 Y S ex:Male Date:09/03/2023 Address:[address] [place] [address] [place], [id number] Pcp:Santino Pisano Subjective: * Chief Complaints: * 1 . 6 months. * HPI: C ardiology: 72 year old male presents with c/o Blood Pressure Elevated P t here for 6 mo f/u on hypertension, states he is doing well and does not have any concerns. c/o Hyperlipidemia p t is fasting today. E ndocrinology: c/o Recent Blood Sugars P t here to f/u on DM 2. D ermatology: c/o bruising P t complains of bruise on lt forearm, states he hit his arm but not what he hit it on. Pt states center of bruise is very sore . * ROS: D ERMATOLOGY: no R isai. n o H rachell. G ASTROENTEROLOGY: no N ausea. n o V omiting. U ROLOGY: no D ifficulty urinating. n o B lood in urine. * Medical History: C HRONIC AF - resolved 08/13 after ablation , HYPERLIPIDEMIA, Heart Cath 03/19 50% EF, 30-40% plaque left main coronary, Sleep apnea, Pacemaker, DISH, Colon polyps, DDD of spine, Obstructive Chronic Broncitis - Dr. Hall, Mild asthma - Dr. Hall, Colon polyps, Tamez's esophagus - EGD/ Dr. Velasquez -06/01/16, HBP, 20-49% stenosis, R and L carotid arteries. * Surgical History: H iatal Hernia Repair , Pacemaker 2003, LT Breast Mass Removal, Benign 12/2005, Colonoscopy, 6 Polyps Removed, Dr. Velasquez 02/2012; 05/2016, EGD/ Dr. Velasquez/ Tamez's esophagus 06/01/2016, Cholecystectomy 03/2012, Cardiac Pacemaker Changed 12/08/2012, Pacemaker Replacement 03/23/2022, Colonoscopy 06/18/23. * Hospitalization/Major Diagno stic Procedure: V ertigo- [facility] ER 10/2016, Elevated Blood Sugar- [facility] ER 05/2020. * Family History: F ather: 54 yrs. M other: , heart failure. 4 brother(s) . 3 son(s) . . sister - lung cancer, age 61. * Social History: C URRENT TOBACCO USE S moking Status: Patient does NOT smoke, Former Smoker: Yes, Quit smokin, Smoking pack year history: 2. C affeine: yes, frequency:. Marital Status: . Past smoking status: no, Smoking status: Does not smoke. Alcohol: no. * Medications: T aking Aspirin 81 81MG DIRECTED QD , Taking HYDROcodone-Acetaminophen 7.5-325 MG Tablet 1 tab(s) orally bid , Taking Meclizine HCl 12.5 MG Tablet 1 tab(s) orally 3 times a day prn , Taking Astepro 205.5 MCG/SPRAY Solution 1 spray(s) intranasally 2-4 times a day , Taking Albuterol Sulfate HFA 108 (90 Base) MCG/ACT Aerosol Solution 2 puff(s) inhaled every 6 hours , Taking Fluticasone Propionate 50 MCG/ACT Suspension 2 spray(s) intranasally once a day , Taking Cetirizine HCl 10 MG Tablet 1 tab(s) orally once a day , Taking Pregabalin 75 MG Capsule 1 cap(s) orally once daily , Taking Symbicort 160-4.5 MCG/ACT Aerosol INHALE 2 PUFFS BY MOUTH 2 TIMES A DAY (RINSE MOUTH AFTER USE) , Taking Magnesium Oxide 400 MG Tablet 1 tab(s) orally once a day , Taking Betamethasone Dipropionate Aug 0.05 % Cream 1 adela applied topically 2 times a day , Taking Dicyclomine HCl 10 MG Capsule 1 cap(s) orally Two times a day , Taking Azelastine HCl 137 MCG/SPRAY Solution 2 spray(s) intranasally 2 times a day , Taking DIABETIC SHOES DIRECTED DIRECTED , Taking Carvedilol 6.25 MG Tablet 1 tablet with food Orally Twice a day , Taking amLODIPine Besylate 5 MG Tablet 1 tab(s) orally once a day , Taking Rosuvastatin Calcium 40 MG Tablet 1/2 tab(s) orally once a day , Notes to Pharmacist: per Dr Lovett, Taking Chlorthalidone 25 MG Tablet 1 tab(s) orally once a day , Taking Cozaar 100 MG Tablet 1 tab(s) orally once a day , Taking metFORMIN HCl ER 500 MG Tablet Extended Release 24 Hour TAKE 2 TABLETS BY MOUTH TWICE DAILY WITH FOOD , Taking Glimepiride 2 MG Tablet 1 tab(s) orally 2 times a day , Taking tiZANidine HCl 4 MG Tablet TAKE 1 TABLET BY MOUTH AT BEDTIME , Taking Potassium Chloride ER 10 MEQ Capsule Extended Release TAKE 1 CAPSULE BY MOUTH ONCE DAILY , Taking Fenofibrate Micronized 134 MG Capsule TAKE 1 CAPSULE BY MOUTH ONCE DAILY , Taking Farxiga 5 MG Tablet TAKE 1 TABLET BY MOUTH ONCE DAILY , Taking Tamsulosin HCl 0.4 MG Capsule TAKE 1 CAPSULE BY MOUTH ONCE DAILY , Taking Warfarin Sodium 5 MG Tablet TAKE 2 TABLETS BY MOUTH ONCE DAILY , Discontinued CPAP SUPPLIES DIRECTED , Discontinued CPAP SUPPLIES DIRECTED , Medication List reviewed and reconciled with the patient * Allergies: V ancomycin, Levaquin: neuropathy - Side Effects, Metoprolol: headache - Side Effects. Objective: * Vitals: W t:243, Temp:97.8, BP:130/62, HR:82, O2 Sat:98% on RA, Nurse:manny, Ht: 74, BMI:31.20. * Examination: E ndocrinology: General Appearance: N AD. H EENT: u nremarkable.?Heart: irregular rhythm. L ungs: c lear to auscultation. E xtremities: n o leg edema. S kin: n ormal, no rash. Assessment: * Assessment: 1. T ype 2 diabetes mellitus without complication, without long-term current use of insulin - E11.9 (Primary) 2 . E ssential hypertension - I10 3 . D yslipidemia - E78.5 4 . O SA (obstructive sleep apnea) - G47.33 5 . Chronic atrial fibrillation - I48.20 6 . L evita term current use of therapeutic drug - Z79.899 Plan: * Treatment: Value Reference Range A /G Ratio 1.8 1.1-2.5 - mg/dL * A lbumin 4.6 3.5-5.3 - g/dL * A lkaline Phosphatase 29 L 40-129 - IU/L * A LT (SGPT) 29 <5-55 - IU/L * A ST (SGOT) 39 <5-46 - IU/L * B ilirubin, Total 0.7 <0.2-1.2 - mg/dL * B UN 18 8-23 - mg/dL * C alcium 10.3 8.6-10.4 - mg/dL * C hloride 101 97-108 - mEq/L * C O2 27 22-32 - mEq/L * C reatinine 0.94 0.70-1.30 - mg/dL * G lucose 149 H 65-99 - mg/dL * P otassium 4.1 3.5-5.3 - mEq/L * S odium 139 135-145 - mEq/L * P rotein 7.2 6.0-8.3 - g/dL * e GFR by Creatinine 87 >59 - mL/min/1.73m2 * Yovana Velez 09/06/2023 9:48 :46 AM >See phone encounter ?LAB: P-TSH reflex to FT4 (Collection Date & Time - 09/03/2023 08:25 AM)? Normal* Value Reference Range T SH reflex to FT4 4.73 0.43-5.25 - mU/L * AgustinAnupamYovana 09/06/2023 9:48 :46 AM >See phone encounter ?LAB: P-Microalbumin/Creatinine, Random Urine Sample (Collection Date & Time - 09/03/2023 08:25 AM)?Normal* Value Reference Range A lbumin/Creatinine Ratio, Urine 7 0-30 - ug /mg * C reatinine, Urine 90.8 - mg/dL * M icroalbumin, Urine, Random 0.6 - mg/dL * Yovana Velez 09/06/2023 9:48 :46 AM >See phone encounter ?LAB: Glucose (In-House) (Collection Date & Time - 09/03/2023)* Value Reference Range b lood glucose 168 74 - 106 mg/dL * Kourtney Olsen 09/03/2023 9 :32:51 AM > , Provider reviewed results while patient in office. ?LAB: Glycohemoglobin A1c (in house) (Collection Date & Time - 09/03/2023)* Value Reference Range g lycohemoglobin 8.2% 5 - 6.5 % * Ivelisse Ruiz 09/03/2023 9:41:12 AM > , Provider reviewed results while patient in office. Notes: Not at goal today??2.?Essential hypertension? Continue Carvedilol Tablet, 6.25 MG, 1 tablet with food, Orally, Twice a day;?Continue amLODIPine Besylate Tablet, 5 MG, 1 tab(s), orally, once a day;?Continue Chlorthalidone Tablet, 25 MG,1 tab(s), orally, once a day;?Continue Cozaar Tablet, 100 MG, 1 tab(s), orally, once a day. ?LAB: P-Comprehensive Metabolic Panel (CMP) (Collection Date & Time - 09/03/2023 08:25 AM)?gluc 149, alk phos 29* Value Reference Range A /G Ratio 1.8 1.1-2.5 - mg/dL * A lbumin 4.6 3.5-5.3 - g/dL * A lkaline Phosphatase 29 L 40-129 - IU/L * A LT (SGPT) 29 <5-55 - IU/L * A ST (SGOT) 39 <5-46 - IU/L * B ilirubin, Total 0.7 <0.2-1.2 - mg/dL * B UN 18 8-23 - mg/dL * C alcium 10.3 8.6-10.4 - mg/dL * C hloride 101 97-108 - mEq/L * C O2 27 22-32 - mEq/L * C reatinine 0.94 0.70-1.30 - mg/dL * G lucose 149 H 65-99 - mg/dL * P otassium 4.1 3.5-5.3 - mEq/L * S odium 139 135-145 - mEq/L * P rotein 7.2 6.0-8.3 - g/dL * e GFR by Creatinine 87 >59 - mL/min/1.73m2 * Yovana Velez 09/06/2023 9:48 :46 AM >See phone encounter 3.?Dyslipidemia? Continue Rosuvastatin Calcium Tablet, 40 MG, 1/2 tab(s), orally, once a day, Notes to Pharmacist: per Dr Lovett.?LAB: P-Comprehensive Metabolic Panel (CMP) (Collection Date & Time - 09/03/2023 08:25 AM)?gluc 149, alk phos 29* Value Reference Range A /G Ratio 1.8 1.1-2.5 - mg/dL * A lbumin 4.6 3.5-5.3 - g/dL * A lkaline Phosphatase 29 L 40-129 - IU/L * A LT (SGPT) 29 <5-55 - IU/L * A ST (SGOT) 39 <5-46 - IU/L * B ilirubin, Total 0.7 <0.2-1.2 - mg/dL * B UN 18 8-23 - mg/dL * C alcium 10.3 8.6-10.4 - mg/dL * C hloride 101 97-108 - mEq/L * C O2 27 22-32 - mEq/L * C reatinine 0.94 0.70-1.30 - mg/dL * G lucose 149 H 65-99 - mg/dL * P otassium 4.1 3.5-5.3 - mEq/L * S odium 139 135-145 - mEq/L * P rotein 7.2 6.0-8.3 - g/dL * e GFR by Creatinine 87 >59 - mL/min/1.73m2 * Yovana Velez 09/06/2023 9:48 :46 AM >See phone encounter ?LAB: P-Lipid Panel (Collection Date & Time - 09/03/2023 08:25 AM)?trig 200, hdl 32* Value Reference Range C holesterol / HDL Ratio 3.22 0.00-4.99 - Ratio * C holesterol 103 <200 - mg/dL * H DL Cholesterol 32 L >39 - mg/dL * L DL Cholesterol (Calculation) 31 <130 - mg/d L * L DL/HDL Ratio 1.0 <3.3 - Ratio * N on-HDL Cholesterol 71 <130 - mg/dL * T riglycerides 200 H <150 - mg/dL * Yovana Velez 09/06/2023 9:48 :46 AM >See phone encounter 4.?GREG (obstructive sleep apnea)? Start CPAP Supplies -, -, as directed, as directed, 1, Refills 0.??5.?Chronic atrial fibrillation? Continue Warfarin Sodium Tablet, 5 MG, TAKE 2 TABLETS BY MOUTH ONCE DAILY.?LAB: PT/INR (in house) (Collection Date & Time - 09/03/2023)* Value Reference Range I NR 3.4 * c urrent dose 10mg daily * n ew dose 7.5mg Wed, 10mg AOD * n ext check 2 weeks with [facility] * i deal INR 2-3 * Ivelisse Ruiz 09/03/2023 9:27:00 AM > , Provider reviewed results while patient in office. 6.?half-way current use of therapeutic drug?LAB: PT/INR (in house) (Collection Date & Time - 09/03/2023)* Value Reference Range I NR 3.4 * c urrent dose 10mg daily * n ew dose 7.5mg Wed, 10mg AOD * n ext check 2 weeks with [facility] * i deal INR 2-3 * Ivelisse Ruiz 09/03/2023 9:27:00 AM > , Provider reviewed results while patient in office. * Procedure Codes: G 2211 Complex e/[place], [address] GLUCOSE TEST, 31235 GLYCATED HEMOGLOBIN TEST, Modifiers: QW , 55576 PROTHROMBIN TIME, Modifiers: QW * Follow Up: [address] Santamaria * Images: Billing Information: * Visit Code: 05180 Office Visit, Est Pt., Level 4. * Procedure Codes: G2211 Complex e/[place]. [address] GLUCOSE TEST. 80294 GLYCATED HEMOGLOBIN TEST. Modifiers: QW 49598 PROTHROMBIN TIME. Modifiers: QW * Electronic signature of Kimberley [place] MD on 01/19/2025 at 09:22 AM EDT Sign off status: Pending * Provider: Bro [place] M.D. Date: 0 09/03/2023 Generated for Garry andrews/Jacbo/Tanaitting on: 0 01/19/2025 09:22 AM EDT History and Physical Notes * HPI (History of Present Illness) Category Sub-Category Detail Notes Category Not es Dermatology bruising Pt complains of bruise on lt forearm, states he hit his arm but not what he hit it on. Pt states center of bruise is very sore Endocrinology Recent Blood Sugars Pt here to f/u on DM 2 Cardiology Blood Pressure Elevated Pt here for 6 mo f/u on hypertension, states he is doing well and does not have any concerns Hyperlipidemia pt is fasting today Examination Category Sub-Category Detail Notes Category Not es Endocrinology HEENT: unremarkable Heart: irregular rhythm Lungs: clear to auscultatio n Extremities: no leg edema General Appearance: NAD Skin: normal, no rash
--- OUTSIDE RECORDS SUMMARY | 2024-03-07 05:00 | XMS_ITS ---
Author Organization [facility] Address [address] [place] [id number] Care Team Providers Care Test Administrator Name Role Phone Santino Pisano Primary Care Provider Richardson Kuhn [phone] Allergies Allergen (clinical drug ingredient) Drug/Non Drug [...] 30 Performing Lab: Notes/Report: Test performed by [facility], [employer] [address] [facility] , [address], [place] [address] Ketan Zamora MD, Elementary School Social Worker CLIA: [id number] Sodium 142 135-145 mmol/L Potassium 4.0 3.5-5.3 [...] 32 Performing Lab: Notes/Report: Test performed by [facility], [address] , [address], [place] [address] Ketan Zamora MD, Elementary School Social Worker CLIA: [id number] Cholesterol 105 <200 mg/dL Triglycerides 181 <150 [...] Interpretation:Normal Performing Lab: Notes/Report: Test performed by [facility], [address] , [facility], [place] [address] Ketan Zamora MD, Elementary School Social Worker CLIA: [id number] PSA 1.16 <4.00 ng/mL Please note this [...] due to type 2 diabetes mellitus (disorder) (724551765080499) Hyperlipidemia associated with type 2 diabetes mellitus (E11.69) Active confirmed Problem Hyperglycemia due to type 2 diabetes mellitus (970650382230741) Diabetes mellitus with hyperglycemia (E11.65) Active confirmed Vital Signs Blood pressure systolic 126 mm Hg 03/07/20 24 Blood pressure diastolic 62 mm Hg 024 Heart Rate 76 /min 03/07/2024 Height 74 in 03/07/2024 Weight 236.8 lbs 03/07/2024 BMI 30.40 kg/m2 03/07/2024 Encounters Encounter Location Date Provider Diagnosis [place] [address] [facility] [address] [facility] [address] [place], [place] [phone] 03/07/2024 Richardson Kuhn Hyperlipidemia associated with type [...] 03/15/2025 09:00:00 AM, [address] [facility], [address], [place], [place], [phone], Progress Notes * RAFAELA SKINNERDOB:1950 (74 yo M)Acc No.[id number]:03/07/2024 Progress Notes Patient: RAAFELA BRITT Provider: Richardson Kuhn M.D. :1950 A ge:73 Y S ex:Male Date:03/07/2024 Address:[facility] [place], [id number] Pcp:Santino Pisano Subjective: * Chief Complaints: * 1 . 6 Month Check Up. 2. Needs laabs with PSA & flu vaccine. * HPI: C ardiology: Pt presents today for a 6 month check up. Needs refill on Montelukast and Albuterol. Pt would like this flu shot today. Pt is fasting today. He continues to follow with the Coumadin clinic at [facility] for monitoring his INR. E NT/respiratory: He [...] * Hospitalization/Major Diagno stic Procedure: V ertigo- [facility] ER 10/2016, Elevated Blood Sugar- [facility] ER 05/2020. * Family History: F ather: [...] * Procedure Codes: 9 4760 [place], [address] CAPILLARY BLOOD DRAW, [address] GLYCATED HEMOGLOBIN TEST, Modifiers: QW * Follow Up: 6 Months * Images: Billing Information: * Visit Code: 82600 Office Visit, Est Pt., Level 4. * Procedure Codes: [address] [place]. [address] CAPILLARY BLOOD DRAW. [address] GLYCATED HEMOGLOBIN TEST. Modifiers: QW * Electronic signature of Richardson Kuhn MD on 01/19/2025 at 09:21 AM EDT Sign off status: Pending * Provider: Richardson Kuhn M.D. Date: 1 Generated for Garry andrews/Jacob/Liana on: 0 01/19/2025 09:21 AM EDT History and Physical Notes * HPI (History of Present Illness) Category Sub-Category Detail Notes Category Not es Cardiology He continues to follow with the Coumadin clinic at [facility] for monitoring his INR Examination Category Sub-Category [...]
--- OUTSIDE RECORDS SUMMARY | 2024-08-15 09:45 | XMS_ITS ---
Author Organization [facility] Address [address] [facility] [address] [place] [phone] Care Team Providers Care Manager Traffic Name Role Phone Santino Pisano Primary Care Provider Richardson Kuhn [phone] Allergies Allergen (clinical drug ingredient) Drug/Non Drug [...] dose same next check 1 week with 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 next week 08/15/2024 Essential hypertension (ICD-10 - [...] his appointment with the Coumadin clinic at [facility] next week Next Appt Details Follow Up: 3 Months, Reason: Provider Name:Richardson Dixon, 03/15/2025 09:00:00 AM, [address], [address], [place], [phone], Progress Notes * RAFAELA SKINNERDOB:1950 (74 yo M)Acc No.[id number]:08/15/2024 Progress Notes Patient: Bro CASIMIRO RAFAELA HOLLIDAY Provider: Richardson Kuhn M.D. :1950 A ge:73 Y S ex:Male Date:08/15/2024 Address:[address] [place], [place] [address], [id number] Pcp:Santino Pisano Subjective: * Chief Complaints: * 1 . Discharge F/U from [facility]. * HPI: H PI: He comes in today for follow-up on recent hospitalization at [facility] for C. difficile colitis, dehydration, and acute renal failure. He apparently had ongoing diarrhea at home for several days and became weak and fell striking his head. This prompted a visit to the [facility] ER. CT scan of the head was negative for intracranial bleeding but he was found to be dehydrated and acute renal failure with creatinine of 5 and supratherapeutic INR. He was then transferred to [facility] for nephrology consultation. I have reviewed available records from [place]. Stool studies confirmed the diagnosis of C. [...] * Hospitalization/Major Diagno stic Procedure: V ertigo- [facility] ER 10/2016, Elevated Blood Sugar- [facility] ER 05/2020. * Family History: F [...] circulatory complications - E11.59 1 0. B VT 30.0-30.9,adult - Z68.30 Plan: * Treatment: * Labs: * L ab: PT/INR (in house) (Collection Date & Time - 08/15/2024) Value Reference Range P T 3.1 * I NR 36.7 * c urrent dose 7.5mg M,F; 10 mg AOD * n ew dose same * n ext check 1 week with [facility] Coumadin Clinic * Dilcia Proctor 08/15/2024 02:05 :26 PM > Provider reviewed results while patient in office. * Procedure Codes: G 2211 Complex e/[place], [address] PROTHROMBIN TIME, Modifiers: QW , 08156 CAPILLARY BLOOD DRAW, G7696 MOST RECENT SYSTOLIC BP < 140MM HG, G8754 MOST RECENT DIASTOLIC BP < 90MM HG * Follow Up: 3 Months * Images: Billing Information: * Visit Code: 12161 Office Visit, Est Pt., Level 4. * Procedure Codes: G2211 Complex e/[place]. [address] PROTHROMBIN TIME. Modifiers: QW 05646 CAPILLARY BLOOD DRAW. G8752 MOST RECENT SYSTOLIC BP < 140MM HG. G8754 MOST RECENT DIASTOLIC BP < 90MM HG. * Electronic signature of Richardson Kuhn MD on 01/19/2025 at 09:21 AM EDT Sign off status: Pending * Provider: Richardson Kuhn M.D. Date: 0 08/15/2024 Generated for Garry andrews/Jacob/Tanaitting on: 0 01/19/2025 09:21 AM EDT History and Physical Notes * Examination Category [...]
--- OUTSIDE RECORDS SUMMARY | 2024-09-12 05:00 | XMS_ITS ---
Author Organization [facility] Address [address] [place] [id number] Care Team Providers Care Fire And Explosion Investigator Name Role Phone Santino Pisano Primary Care Provider Richardson Kuhn [phone] Allergies Allergen (clinical drug ingredient) Drug/Non Drug [...] Interpretation: Performing Lab: Notes/Report: Test performed by [facility] [address] [place] [address] , [address], [place] [address] Ketan Zamora MD, It Sales Executive CLIA: [id number] Sodium 139 135-145 mmol/L Potassium 4.0 3.5-5.3 [...] Interpretation: Performing Lab: Notes/Report: Test performed by [facility], [employer] [address] [place] [address] , [address], [place] [address] Ketan Zamora MD, It Sales Executive CLIA: [id number] Cholesterol 107 <200 mg/dL Triglycerides 178 <150 [...] Interpretation: Performing Lab: Notes/Report: Test performed by [facility], [address] , [facility], [place] [address] Ketan Zamora MD, It Sales Executive CLIA: [id number] Albumin/Creatinine Ratio, Urine 6 0-30 ug/m g [...] Encounters Encounter Location Date Provider Diagnosis [place] [address] [place] [address] 36 [facility] [address] [place], [place] [id number] 09/12/2024 Richardson Kuhn Hyperlipidemia associated with type [...] Follow Up: 6 Months, Reason: Provider Name:Richardson Garciajass apollo, 03/15/2025 09:00:00 AM, [address] [facility] 36 [facility], [address], [place], [id number], Progress Notes * RAFAELA SKINNERDOB:1950 (74 yo M)Acc No.[id number]:09/12/2024 Progress Notes Patient: Bro CASIMIRORAFAELA MIYA Provider: Richardson Kuhn M.D. :1950 A ge:73 Y S ex:Male Date:09/12/2024 Address:[facility] [id number] Pcp:Santino Pisano Subjective: * Chief Complaints: * 1 . 6 months. 2. Needs labs. * HPI: C ardiology: The patient is here today for a check up. Pt states he is doing well and denies any new concerns. Pt states he is fasting. Pt states his last INR was on Wednesday at [facility] and it was 2.9. Denies : Chest [...] * Hospitalization/Major Diagno stic Procedure: V ertigo- [facility] ER 10/2016, Elevated Blood Sugar- [facility] ER 05/2020. * Family History: F ather: [...] cardiac pacemaker - Z95.0 5 . B SD 30.0-30.9,adult - Z68.30 Plan: * Treatment: Value [...] G 2211 Complex e/[place], [address] GLYCATED HEMOGLOBIN TEST, Modifiers: QW , 3051F HG A1C>EQUAL 7.0%<8.0%, G8752 MOST RECENT SYSTOLIC BP < 140MM HG, G8754 MOST RECENT DIASTOLIC BP < 90MM HG * Follow Up: 6 Months * Images: Billing Information: * Visit Code: 44902 Office Visit, Est Pt., Level 4. * Procedure Codes: G2211 Complex e/[place]. [address] GLYCATED HEMOGLOBIN TEST. Modifiers: QW 3051F HG A1C>EQUAL 7.0%<8.0%. G8752 MOST RECENT SYSTOLIC BP < 140MM HG. G8754 MOST RECENT DIASTOLIC BP < 90MM HG. * Electronic signature of Richardson Kuhn MD on 01/19/2025 at 09:21 AM EDT Sign off status: Pending * Provider: Richardson Kuhn M.D. Date: 0 09/12/2024 Generated for Garry andrews/Jacob/eTransmitting on: 0 01/19/2025 09:21 AM EDT History [...]
--- OUTSIDE RECORDS SUMMARY | 2024-12-28 06:00 | XMS_ITS ---
Author Organization [facility] Address [address] [facility] [address] [place] [id number] Care Team Providers Care Picked Edge Sewing Machine Operator Name Role Phone Santino Pisano Primary Care Provider Richardson Kuhn [phone] Allergies Allergen (clinical drug ingredient) Drug/Non Drug [...] Encounter Location Date Provider Diagnosis [place] [address] [facility] 36 [facility] [address] [place] [id number] 12/28/2024 Richardson Kuhn Diabetes mellitus wi th [...] Provider Name:Richardson Dixon, 03/15/2025 09:00:00 AM, [address] [facility] 36 [facility], [address], [place], [phone], Progress Notes * RAFAELA SKINNERDOB:1950 (74 yo M)Acc No.[id number]:12/28/2024 Progress Notes Patient: RAFAELA BRITT Provider: Richardson Kuhn M.D. :1950 A ge:74 Y S ex:Male Date:12/28/2024 Address:[place], [id number] Pcp:Santino Pisano Subjective: * Chief Complaints: * [...] * Hospitalization/Major Diagno stic Procedure: V ertigo- [facility] ER 10/2016, Elevated Blood Sugar- [facility] ER 05/2020. * Family History: F [...] G 2211 Complex e/[place], [address] CAPILLARY BLOOD DRAW, [address] GLYCATED HEMOGLOBIN TEST, Modifiers: QW , 3044F HG A1C LEVEL LT 7.0%, 1036F TOBACCO NON-USER, G8783 BP SCR PRFRM RCMDD DEFIND SCR INTVL, G8752 MOST RECENT SYSTOLIC BP < 140MM HG, G8754 MOST RECENT DIASTOLIC BP < 90MM HG * Follow Up: 3 Months * Images: Billing Information: * Visit Code: 04056 Office Visit, Est Pt., Level 3. * Procedure Codes: G2211 Complex e/[place]. [address] CAPILLARY BLOOD DRAW. 22382 GLYCATED HEMOGLOBIN TEST. Modifiers: QW 3044F HG [...] 0 12/28/2024 Generated for Garry andrews/Jacob/Mariettasmitting on: 0 01/19/2025 09:21 AM EDT History and Physical Notes * Examination Category Sub-Category Detail Notes Category Not es General Examination Heart: RSR Lungs: clear to auscultatio n Extremities: no leg edema General Appearance: NAD
--- OUTSIDE RECORDS SUMMARY | 2025-01-19 09:21 | XMS_ITS | Clinical Summary ---
Author Organization [facility] Address [address] [place] [address] Care Team Providers Care Roving Frame Tender Name Role Phone Francisco Kuhn MD Primary Care Provider [phone] Medications methocarbamol (Robaxin) 750 MG tablet Take [...] 1997 UKY-Zoster Vaccines (1 of 2) 2002 VPT-ARNGO-05 Vaccine (1 - season) 2025 [facility]Y-Influenza Vaccine (#1) 01/08/202503/06, 02/28/2021, 02/19/2020, Additional [...] to complete this topic Insurance [place] [id number] [place] [address] ANTHEM Care Teams Roving Frame Tender Relationship Specialty Start Date End Date Francisco Kuhn MD [address] [place] [address] PCP - General 09/20/20
--- OUTSIDE RECORDS SUMMARY | 2025-01-19 09:21 | XMS_ITS | Encounter Summary ---
[facility] Address [address] [place] [address] Care Team Providers Care Psychologist Clinical Name Role Phone Francisco Kuhn MD Primary Care Provider Encounter Details Date Type Department Care Team (Late st Contact Info) Description 05/24/2018 External CPT II [facility] Social History Tobacco Use [...] Description 07/03/2025 3:15 PM EST Office Visit [facility] [address] [facility] [address] [place] [phone] Khoi Reynoso MD [address] [facility] [address] [place] [address] documented as of this encounter Visit Diagnoses Not on filedocumented in this encounter Care Teams Psychologist Clinical Relationship Specialty Start Date End Date Francisco Kuhn MD [facility] [facility] [address] [place] [address] PCP - General 02/25/15 documented as of this encounter
--- OUTSIDE RECORDS SUMMARY | 2025-01-19 09:22 | XMS_ITS | Clinical Summary ---
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 Biventricular pacemaker implantation, 03/13/2004; Guidant model 4538 set at VVI 80 bpm. Chronic Coumadin therapy. AV node ablation (August 2005). Generator change, Dr. Hirsch, 2013. 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 COPD (chronic obstructive pulmonary disease) Overview [...] Description 10/19/2024 3:30 PM EDT Office Visit [facility] [address] [facility] [place] [address] Glenn Lovett MD Coronary artery disease involving [place] coronary artery of [place] heart without angina pectoris (Primary Dx); Primary hypertension; Mixed hyperlipidemia; Permanent atrial fibrillation 10/19/2024 Travel from Last 3 Months Family History Medical History Relation Name Comments Cancer Brother Diabetes Brother Alcohol abuse Father Hernández Asthma Father Hernández Arrhythmia Mother Ruth Atrial fibrillation Mother Ruth Heart disease Mother Ruth Heart failure Mother Ruth Lung cancer Sister Relation Name Status Comments Brother Father Hernández Mother Ruth Sister Social History Tobacco Use Types Packs/Day Years Used Date Smoking Tobacco: Former Cigarettes 2 15 1 972 - 1986 Passive Smoke Exposure: Never [...] Description 07/03/2025 3:15 PM EST Office Visit [facility] [address] [facility] [address] [place] [address] Khoi Reynoso MD [address] [facility] [address] [place] [id number] Health Maintenance Due Date Last Done Comments [...] COVID-19 Vaccine ( - 2023-2 5 season) 2025 INFLUENZA VACCINE 02/07/2025 03/06/2022, , 03/06/2022, Additional history exists COLONOSCOPY 06/01/2026 06/01/2016 COLORECTAL CANCER SCREENING 06/01/2026 Pneumococcal Vaccine 50+ Completed 05/26/2019, 05/10 Medical Devices Implanted Type Area Siebel Administrator Device Identifier Shelf Expiration Date Model / Serial / Lot Env Pm Aigisrx Antibac Resorb 2.9x3.3in Lg - [id number] Implanted:Qty: 1 on 03/23/2022 by Khoi Reynoso MD at [facility] Implant [employer] 11/29/2022 [id number] / / [id number] Hemost Abs Surgicel Pwdr 3gm - [id number] Implanted:Qty: 1 on 03/23/2022 by Khoi Reynoso MD at [facility] Implant ETHICON DIV OF J AND J 06/09/2023 [id number] / / [id number] Pacemaker-12/28 Implanted:12/09 by Yvon Hirsch MD (Quantity not on file) Pacemaker [facility] [id number] INVIVE CLERK GENERAL OFFICE-P / [id number] / Gen Pm Visionist Honing Machine Set Up Operator/P 15.2cc U225 - [id number] - [id number] Implanted:Qty: 1 on 03/23/2022 by Khoi Reynoso MD at [facility] Pacemaker Interface Security Systems 01/05/2024 [id number] / [id number] / Procedures Procedure Name Priority Date/Time Associated Diagnosis Comments REMOTE DEVICE CHECK 12/27/2024 1 2:41 AM EDT from Last 3 Months Results * Remote Device Check (12/27/2024 12:41 AM EDT) Date Time Interrogation Session [id number] [facility] Type Interrogation Session Remote Scheduled [facility] Implantable Pulse Generator Siebel Administrator Toutiao [facility] Implantable Pulse Generator Type CLERK GENERAL OFFICE-P [facility] Implantable Pulse Generator Model [id number] [facility] Implantable Pulse Generator Serial Number [id number] [facility] Implantable Pulse Generator Implant Date 20220323 [facility] Battery Remaining Percentage 100.00 % [facility] Battery Remaining Longevity 132.0 mo [facility] Battery Status Beginning of Service [facility] Stephan Statistic RA Percent Paced 0.00 [facility] Stephan Statistic RV Percent Paced 99.00 [facility] CLERK GENERAL OFFICE Statistic LV Percent Paced 99.00 [facility] Lead Channel Setting RA Sensing Sensitivity 0.75 [facility] Lead Channel RA Measurements Date and Time 20241226 [facility] Lead Channel Setting RV Sensing Sensitivity 2.50 [facility] Lead Channel RV Impedance Value 457 [facility] Lead Channel RV Measurements Date and Time 20241226 [facility] Lead Channel Setting RV Pacing Amplitude 2.000 [facility] Lead Channel Setting RV Pacing Pulse Width 0.4 [facility] Lead Channel LV Impedance Value 723 [facility] LV Lead Channel Measurements Date and Time 20241226 [facility] Lead Channel Setting LV Pacing Amplitude 2.000 [facility] Lead Channel Setting LV Pacing Pulse Width 0.4 [facility] Stephan Setting Mode (NBG Code) VVIR [facility] Ventricular chambers paced during CLERK GENERAL OFFICE pacing. BiV [facility] Stephan Setting Lower Rate Limit 70 [facility] Stephan Setting AT Mode Switch Rate 170 [facility] Stephan Setting Maximum Sensor Rate 130 [facility] CLERK GENERAL OFFICE LV-RV Delay 0 [facility] [employer] RADIOLOGY Lead Channel Setting RV Sensing Polarity Bipolar [facility] [employer] RADIOLOGY Lead Channel Setting RV Pacing Polarity Bipolar [facility] [employer] RADIOLOGY Lead Channel RV Pacing Threshold Polarity Bipolar [facility] Lead Channel LV Pacing Threshold Polarity Unipolar [facility] Zone Setting Type Category VT [facility] IDC RATE 1 160 [facility] Zone Setting Status Monitor [facility] Zone ID 1 [facility] 12/27/2024 12:4 1 AM EDT us Khoi Reynoso MD CV IMPLANTABLE CARDIAC DEVICE Fi nal Result Performing Organization Address City/State/[facility] Co de Phone Number [facility] from Last 3 Months Insurance MEDICARE A & B Member Subscriber Plan / Payer (Ef fective 2009-Present) Name:Glenn Skinner Member ID:[id number] Relation to Subscriber:Self Name:Glenn Skinner Subscriber ID:[id number] Payer ID:[id number] Group ID:Not on file Type:Not on file [address] Care Teams Corner Brace Block Machine Operator Relationship Specialty Start Date End Date Francisco Kuhn MD [facility] [address] [facility] [address] [place] [address] PCP - General 02/25/15
--- OUTSIDE RECORDS SUMMARY | 2025-01-19 09:22 | XMS_ITS | Patient Health Record ---
Author Organization [facility] Address [address] [facility] [address] [place] [id number] Care Team Providers Care Bread Icer Name Role Phone Santino Pisano Primary Care Provider Richardson Kuhn [phone] Allergies Allergen (clinical drug ingredient) Drug/Non Drug [...] 30 Performing Lab: Notes/Report: Test performed by [facility] , [address], [place] [address] Ketan Zamora MD, Insulation Worker CLIA: [id number] Sodium 142 135-145 mmol/L Potassium 4.0 3.5-5.3 [...] 32 Performing Lab: Notes/Report: Test performed by [facility], [address] , [address], [place] [address] Ketan Zamora MD, Insulation Worker CLIA: [id number] Cholesterol 105 <200 mg/dL Triglycerides 181 <150 [...] Interpretation:Normal Performing Lab: Notes/Report: Test performed by [facility], [address] , [place] [address] Ketan Zamora MD, Insulation Worker CLIA: [id number] PSA 1.16 <4.00 ng/mL Please note this [...] same next check 1 week with [facility] Coumadin Clinic Glycohemoglobin A1c (in hous e) Reviewed date:09/13/2024 10:29:03 PM Interpretation:7.6% Performing Lab: Notes/Report: 7.6% glycohemoglobin 7.6% 5 - 6.5 % P-Comprehensive Metabolic Pa guicho (CMP) Reviewed date:09/13/2024 10:37:03 PM Interpretation: Performing Lab: Notes/Report: Test performed by [facility] [address] [place] [address] [address], [place] [address] Ketan Zamora MD, Insulation Worker CLIA: [id number] Sodium 139 135-145 mmol/L Potassium 4.0 3.5-5.3 [...] Interpretation: Performing Lab: Notes/Report: Test performed by [facility] [address] [place] [address] [address], [place] [address] Ketan Zamora MD, Insulation Worker CLIA: [id number] Cholesterol 107 <200 mg/dL Triglycerides 178 <150 [...] Interpretation: Performing Lab: Notes/Report: Test performed by [facility] [address] [place] [address] , [place] [address] Ketan Zamora MD, Insulation Worker CLIA: [id number] Albumin/Creatinine Ratio, Urine 6 0-30 ug/mg Microalbumin, Urine, Random 0.4 Creatinine, Urine 61.7 Glycohemoglobin A1c (in hous e) Reviewed date:12/31/2024 10:50:29 PM Interpretation:7.3% Performing Lab: Notes/Report: 7.3% glycohemoglobin 7.3% 5 - 6.5 % H-INR Reviewed date:03/03/2024 10:10:29 AM Interpretation: Performing [...] X3 DAYS THEN RESUME 7.5 MG ON MON/FRI; 10 MG ON WED/WED/WED/WED/SAT. WILL FOLLOW UP ON 05/15/24 IN CLINIC. [...] 7.5 MG ON MON/FRI; 10 MG ON SUN/E/WED/TISHA/SAT. PATIENT INDICATED HE HAS NOT BEEN TO [...] 7.5 MG ON MON/WED/WED; 10 MG ON SUN/TUE/TISHA/SAT. FOR DETAILED INFORMATION-PLEASE [...] Duration) Notes Start Date End Date Status Pregabalin 75 MG 1 cap(s) orally once daily Active Fenofibrate Micronized 134 MG 1 capsule with a meal Orally Once a day; Duration: 30 days Active Symbicort 160-4.5 MCG/ACT INHALE 2 PUFFS BY MOUTH 2 TIMES A DAY (RINSE MOUTH AFTER USE) Active Astepro 205.5 MCG/SPRAY 1 spray(s) intranasally 2-4 times a day; Duration: 30 day(s) 11/22/2019 Active Potassium Chloride ER 10 MEQ 1 capsule with food Orally daily; Duration: 30 days Active Fluticasone Propionate 50 MCG/ACT 2 spray(s) intranasally once a day 07/05/2015 Active HYDROcodone-Acetamino phen 7.5-325 MG 1 tab(s) orally bid Active Meclizine HCl 12.5 MG 1 tab(s) orally 3 times a day prn 06/28/2019 Active Tamsulosin HCl 0.4 MG 1 capsule Orally Once a day; Duration: 30 days Active Warfarin Sodium 5 MG 2 tab(s) Orally Once a day; Duration: 90 days Active Aspirin 81 81MG DIRECTED QD Active tiZANidine HCl 4 MG 1 tablet at bedtime as needed Orally Once a day; Duration: 90 days Active Dicyclomine HCl 10 MG 1 cap(s) orally Two times a day 07/28/2022 Active Magnesium Oxide 400 MG 1 tab(s) orally once a day Active Betamethasone Dipropionate Aug 0.05 % 1 adela applied topically 2 times a day 01/29/2022 Not-Taking Albuterol Sulfate HFA 108 (90 Base) MCG/ACT 2 puff(s) inhaled every 6 hours; Duration: 30 day(s) Active Azelastine HCl 137 MCG/SPRAY SHAKE WELL AND INHALE 2 SPRAY(S) INTRANASALLY 2 TIMES A DAY DIRECTED; Duration: 30 Active Cozaar 100 MG 1 tab(s) orally once a day Active Rosuvastatin Calcium 40 MG 1/2 tab(s) orally once a day per Dr Lovett 06/04/2020 Active amLODIPine Besylate 5 MG 1 tab(s) orally once a day Active Chlorthalidone 25 MG 1 tab(s) orally once a day Active DIABETIC SHOES DIRECTED DIRECTED 09/03/2022 Active Carvedilol 6.25 MG 1 tablet with food Orally Twice a day Active Farxiga 10 MG TAKE 1 TABLET BY MOUTH ONCE DAILY Active metFORMIN HCl ER 500 MG 2 tablets orally twice a day Active Glimepiride 2 MG 1 tab(s) Orally Two times a day Active Ozempic (0.25 or 0.5 MG/DOSE) 2 MG/3ML 0.25 mg Subcutaneous once a week 12/28/2024 Active CPAP Supplies - as directed as directed diagnosis codes: G47.33, J44.9 09/03/2023 Active Montelukast Sodium 10 MG 1 tablet Orally Once a day; Duration: 90 days Active Immunizations Vaccine Route Administration Date [...] 03/07/2024 Administered Flublok IM Intramuscular 05/24/2018 Administered Problems Problem Type SNOMED Code ICD Code Onset Dates Problem Status W/U Status Risk Notes Problem Peripheral circulatory disorder associated with diabetes mellitus (796867622) 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 confirmed Problem Long-term current use of anticoagulant (195475033) detention current use of anticoagulants with INR goal of 2.0-3.0 (Z79.01) Active confirmed Problem COPD - Chronic obstructive pulmonary disease (13640430) COPD (chronic obstructive pulmonary disease) (J44.9) Active confirmed Problem Essential hypertension (05664490) Essential hypertension (I10) Active confirmed Problem Seasonal allergy (908913845) Seasonal allergies (J30.2) Active confirmed Problem Body mass index 30+ - obesity (924455436) BMI 30.0-30.9,adult (Z68.30) Active confirmed Problem Chronic pain (87750732) Other chronic pain (G89.29) Active confirmed Problem Hyperlipidemia due to type 2 diabetes mellitus (disorder) (151681383502233) Hyperlipidemia associated with type 2 diabetes mellitus (E11.69) Active confirmed Problem Degeneration of cervical intervertebral disc (02593735) Degenerative disc disease, cervical (M50.30) Active confirmed Problem Cardiac pacemaker in situ (566237993) Status cardiac pacemaker (Z95.0) Active confirmed Problem Bilateral tinnitus (4936992883529) Tinnitus of both ears (H93.13) Active confirmed Problem Degeneration of thoracic intervertebral disc (71436513) Degenerative disc disease, thoracic (M51.34) Active confirmed Problem Irritable bowel syndrome (58644005) Irritable bowel syndrome (K58.9) Active confirmed Problem Mild intermittent asthma (643689549) Mild intermittent asthma without complication (J45.20) Active confirmed Problem Hyperglycemia due to type 2 diabetes mellitus (125436577808355) Diabetes mellitus with hyperglycemia (E11.65) Active confirmed Problem Obstructive sleep apnea syndrome (57995408) GREG (obstructive sleep apnea) (G47.33) Active confirmed Problem Body mass index 30.00 to 34.99 (917906593965300) BMI 31.0-31.9,adult (Z68.31) Active confirmed Problem Dyslipidemia (579527569) Dyslipidemia (E78.5) Active confirmed Problem Allergic rhinitis caused by pollen (02917199) Seasonal allergic rhinitis due to pollen (J30.1) Active confirmed Problem Type II diabetes mellitus without complication (438845727) Type 2 diabetes mellitus without complication, without long-term current use of insulin (E11.9) Active confirmed Problem Occlusion and stenosis of multiple and bilateral cerebral arteries (409850386) Bilateral carotid artery 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) Active confirmed Problem Lower urinary tract symptoms due to benign prostatic hypertrophy (74441250251811) Benign prostatic hyperplasia with lower urinary tract symptoms (N40.1) Active confirmed Problem Diffuse idiopathic skeletal hyperostosis (61769562) Diffuse idiopathic skeletal hyperostosis (M48.10) Active confirmed Problem Tamez's esophagus (066295367) 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) Active confirmed Problem Chronic atrial fibrillation (117749171) Chronic atrial fibrillation (I48.20) Active confirmed Vital Signs Heart Rate 82 /min 12/28/2024 Blood pressure diastolic 60 mm Hg 12/28/2024 Height 74 in 12/28/2024 Blood pressure systolic 122 mm Hg 12/28/2024 Weight 241.2 lbs 12/28/2024 BMI 30.96 kg/m2 12/28/2024 Encounters Encounter Location Date [facility] [address] [id number] [facility]24 Richardson Kuhn Hyperlipidemia associated with type 2 diabetes mellitus E11.69 ; Diabetes mellitus with hyperglycemia E11.65 ; Screening for prostate cancer Z12.5 ; Trismus R25.2 and Encounter for immunization Z23 [facility] [address] [place] [id number] 08/15/2024 Richardson Kuhn Acute renal failure N17.9 [...] circulatory complications E11.59 and BMI 30.0-30.9,adult Z68.30 [facility] [address] [id number] 09/12/2024 Sp Kuhn Hyperlipidemia associated with type 2 diabetes mellitus E11.69 ; Diabetes mellitus with hyperglycemia E11.65 ; A-fib I48.91 ; Status cardiac pacemaker Z95.0 and BMI 30.0-30.9,adult Z68.30 [facility] [address] [place] [id number] 12/28/2024 Richardson Kuhn Diabetes mellitus wi th hyperglycemia E11.65 ; Type 2 diabetes mellitus with other circulatory complications E11.59 and GREG (obstructive sleep apnea) G47.33 [facility] [address] [place] [id number] 02/08/2024 Santino Pisano GREG (obstructive sle ep apnea) G47.33 [facility] [address] [place] [id number] 03/12/2024 Richardson Kuhn [facility] [address] [facility] [address] [place], [place] [id number] 03/28/2024 Santino Pisano [facility] [address] [facility] [address] [place], [place] [id number] 09/12/2024 Santino Pisano GREG (obstructive sle ep apnea) G47.33 [facility] [address] [place] [facility] [address] [place] [id number] 09/13/2024 Santino Pisano Assessments Encounter Date Diagnosis [...] GREG (obstructive sleep apnea) (ICD-10 - G47.33) 12/28/2024 Type 2 diabetes mellitus with other circulatory complications (ICD-10 - E11.59) 12/28/2024 Diabetes mellitus with hyperglycemia (ICD-10 - E11.65) A1c is improved but not at goal. Will add Ozempic and titrate as tolerated. As blood sugars improved, should be able to wean some of his oral medication starting with glimepiride 09/12/2024 Hyperlipidemia associated with type 2 diabetes mellitus (ICD-10 - E11.69) 12/28/2024 GREG (obstructive sleep apnea) (ICD-10 - [...] appointment with the Coumadin clinic at [facility] next week 09/12/2024 Status cardiac pacemaker [...] Treatment Next Appt Details Provider Name:Richardson Dixon, 03/15/2025 09:00:00 AM, [address] [facility], [address], [place], [place], [id number], Insurance Providers Payer Name Payer Address Payer Phone Subscriber Number Group Number Insured Name Patient Relationship to Insured Coverage Start Date Coverage End Date MEDICARE PART B [address] [address] [place] [address] [id number] RAFAELA SKINNER Self - patient is the insured [employer] [address] [place] [address] [id number] RAFAELA SKINNER Self - patient is the [...] Hospitalization History Reason Date(Month/Year) Elevated Blood Sugar- [facility] ER 05/2020 Vertigo- [facility] ER 10/2016
--- OUTSIDE RECORDS SUMMARY | 2025-01-19 09:23 | XMS_ITS | Encounter Summary ---
Author Organization [facility] Address [address] [place] [address] Care Team Providers Care Real Estate Assistant Name Role Phone Francisco Kuhn MD Primary Care Provider Encounter Details Date Type Department Care Team (Late st Contact Info) Description 05/21/2017 External CPT II COLLATOR HAND - [facility] Social History Tobacco Use [...] Description 07/03/2025 3:15 PM EST Office Visit [facility] CARDIOLOGY [address] [facility] [address] [place] [id number] Khoi Reynoso MD [address] [facility] [address] [place] [address] documented as of this encounter Visit Diagnoses Not on filedocumented in this encounter Care Teams Real Estate Assistant Relationship Specialty Start Date End Date Francisco Kuhn MD [address] [facility] [address] [place] [address] PCP - General 02/25/15 documented as of this encounter
[2025-01-19 12:05] LABS: PHA INR Fingerstick 2.9 (0.9-1.1)
== END 2025-01-19 12:11 ==
LOC: ACC 09:19
PROVIDERS: PCP Family Medicine; Visit Provider Family Medicine
DX: I48.91 Unspecified atrial fibrillation (principal); Z79.01 Long term (current) use of anticoagulants
CPT/HCPCS: 85610; 99211; G0463

== ENCOUNTER 2025-03-02 09:21 | Outpatient (CLI) | payer MEDICARE, BC, SELFPAY ==
--- OUTSIDE RECORDS SUMMARY | 2023-09-03 05:00 | XMS_ITS ---
Author Organization [facility] Address [address] [place] [id number] Care Team Providers Care Field Support Technician Name Role Phone Santino Pisano Primary Care Provider [phone] Bernardino Lynn Unavailable [phone] Allergies Allergen (clinical drug ingredient) Drug/Non Drug Allergy documented on EMR Reaction Allergy Type Onset Date Status Information temporarily unavailable Levaquin neuropathy Drug Allergy Active Information temporarily unavailable Metoprolol headache Drug Allergy Active Information temporarily unavailable Vancomycin Unknown Drug Allergy Active Results Component Value Reference Range Notes PT/INR (in house) Reviewed date:09/03/2023 10:37:48 AM Interpretation: Performing Lab: Notes/Report: INR 3.4 current dose 10mg daily new dose 7.5mg Wed, 10mg AOD next check 2 weeks with [facility] ideal INR 2-3 Glucose (In-House) Reviewed date:09/03/2023 10:37:36 AM Interpretation: Performing Lab: Notes/Report: blood glucose 168 74 - 106 mg/dL Glycohemoglobin A1c (in hous e) Reviewed date:09/03/2023 10:37:26 AM Interpretation: Performing Lab: Notes/Report: glycohemoglobin 8.2% 5 - 6.5 % P-Comprehensive Metabolic Pa guicho (CMP) Reviewed date:09/06/2023 09:51:37 AM Interpretation:gluc 149, alk phos 29 Performing Lab: Notes/Report: Test performed by [facility] , [address], [place] [address] Ketan Zamora MD, [employer] CLIA: [id number] Sodium 139 135-145 mEq/L Potassium 4.1 3.5-5.3 [...] 32 Performing Lab: Notes/Report: Test performed by [facility] [address] [place] [address] , [address], [place] [address] Ketan Zamora MD, [employer] CLIA: [id number] Cholesterol 103 <200 mg/dL Triglycerides 200 <150 [...] Interpretation:Normal Performing Lab: Notes/Report: Test performed by [facility] [address] [place], [place] [address] [place] [address], [place] [address] Ketan Zamora MD, [employer] Rep[employer]r CLIA: [id number] TSH reflex to FT4 4.73 0.43-5.25 mU/L P-Microalbumin/Creatinine, R andom Urine Sample Reviewed date:09/06/2023 09:51:38 AM Interpretation:Normal Performing Lab: Notes/Report: Test performed by [facility] [address] [place], [place] [address] [address], [place] [address] Ketan Zamora MD, [employer] Rep[employer]r CLIA: [id number] Albumin/Creatinine Ratio, Urine 7 0-30 ug/mg Microalbumin, [...] 09/03/2023 Encounters En[facility] Date [facility] [address], [place] [id number] 09/03/2023 Bernardino Lynn Type 2 diabetes dony itus without complication, without long-term current use of insulin E11.9 ; Essential hypertension I10 ; Dyslipidemia E78.5 ; GREG (obstructive sleep apnea) G47.33 ; Chronic atrial fibrillation I48.20 and senior living current use of therapeutic drug Z79.899 Assessments [...] Chronic atrial fibrillation (ICD-10 - I48.20) 09/03/2023 senior living current use of therapeutic drug (ICD-10 - [...] Farxiga 5 MG TAKE 1 TABLET BY ALEJANDOR TH ONCE DAILY Farxiga 10 MG 1 [...] Name:Richardson Dixon, 03/15/2025 09:00:00 AM, [address] [facility] 36 [facility], [address], [id number], Progress Notes * RAFAELA SKINNER MIYADOB:1950 (74 yo M)Acc No.[id number]:09/03/2023 Progress Notes Patient: RAFAELA BRITT Provider: Bro Lynn M.D. :1950 A ge:72 Y S ex:Male Date:09/03/2023 Address:[address] [place], [place] [address], [id number] Pcp:Santino Pisano Subjective: * Chief Complaints: * [...] of spine, Obstructive Chronic Broncitis - Dr. Hlal, Mild asthma - Dr. Hall, Colon polyps, [...] * Hospitalization/Major Diagno stic Procedure: V ertigo- [facility] ER 10/2016, Elevated Blood Sugar- [facility] ER 05/2020. * Family History: F ather: [...] to FT4 4.73 0.43-5.25 - mU/L * Melissa Velezica 09/06/2023 9:48 :46 AM >See phone encounter ?LAB: P-Microalbumin/Creatinine, Random Urine Sample (Collection Date & Time - 09/03/2023 08:25 AM)?Normal* Value Reference Range A lbumin/Creatinine Ratio, Urine 7 0-30 - ug /mg * C reatinine, Urine 90.8 - mg/dL * M icroalbumin, Urine, Random 0.6 - mg/dL * Melissa Velezica 09/06/2023 9:48 :46 AM >See phone encounter [...] * n ext check 2 weeks with [facility] * i deal INR 2-3 * Ivelisse Ruiz 09/03/2023 9:27:00 AM > , Provider reviewed results while patient in office. 6.?senior living current use of therapeutic drug?LAB: PT/INR (in house) (Collection Date & Time - 09/03/2023)* Value Reference Range I NR 3.4 * c urrent dose 10mg daily * n ew dose 7.5mg Wed, 10mg AOD * n ext check 2 weeks with [facility] * i deal INR 2-3 * Ivelisse Ruiz 09/03/2023 9:27:00 AM > , Provider reviewed results while patient in office. * Procedure Codes: G 2211 Complex e/[place], [address] GLUCOSE TEST, 40711 GLYCATED HEMOGLOBIN TEST, Modifiers: QW , 01656 PROTHROMBIN TIME, Modifiers: QW * Follow Up: [address] Santamaria * Images: Billing Information: * Visit Code: 38591 Office Visit, Est Pt., Level 4. * Procedure Codes: G2211 Complex e/[place]. [address] GLUCOSE TEST. 21665 GLYCATED HEMOGLOBIN TEST. Modifiers: QW 72844 PROTHROMBIN TIME. Modifiers: QW * Electronic signature of Kimberley Lynn MD on 03/02/2025 at 09:36 AM EDT Sign off status: Pending * Provider: Bro Lynn M.D. Date: 0 09/03/2023 Generated for Garry andrews/Jacob/Tanaitting on: 1 09:36 AM EDT History and Physical Notes * [...]
--- OUTSIDE RECORDS SUMMARY | 2024-03-07 05:00 | XMS_ITS ---
Author Organization [facility] Address [address] [place] [id number] Care Team Providers Care Perpetual Inventory Clerk Name Role Phone Santino Pisano Primary Care Provider [phone] Richardson Kuhn Unavailable [phone] Allergies Allergen (clinical drug ingredient) Drug/Non Drug Allergy documented on EMR Reaction Allergy Type Onset Date Status Information temporarily unavailable Levaquin neuropathy Drug Allergy Active Information temporarily unavailable Metoprolol headache Drug Allergy Active Information temporarily unavailable Vancomycin Unknown Drug Allergy Active Results Component Value Reference Range Notes Glycohemoglobin A1c (in hous e) Reviewed date:03/12/2024 09:01:45 PM Interpretation:7.2% Performing Lab: Notes/Report: 7.2% glycohemoglobin 7.2% 5 - 6.5 % P-Comprehensive Metabolic Pa guicho (CMP) Reviewed date:03/12/2024 09:01:45 PM Interpretation:gluc 130, alk phos 30 Performing Lab: Notes/Report: Test performed by [facility] , [address], [place] [address] Ketan Zamora MD, Cupola Melter Helper CLIA: [id number] Sodium 142 135-145 mmol/L Potassium 4.0 3.5-5.3 [...] 32 Performing Lab: Notes/Report: Test performed by [facility], [address] , [address], [place] [address] Ketan Zamora MD, Cupola Melter Helper CLIA: [id number] Cholesterol 105 <200 mg/dL Triglycerides 181 <150 [...] Interpretation:Normal Performing Lab: Notes/Report: Test performed by [email or web address] [address] , [facility], [place] [address] Ketan Zamora MD, Cupola Melter Helper CLIA: [id number] PSA 1.16 <4.00 ng/mL Please note this is an ultrasensitive PSA assay with a lower limit of detection of 0.014 ng/mL. This test is performed by the [employer] ECLIA methodology. Values obtained with different assay [...] Problem Status W/U Status Risk Notes Problem Information temporarily unavailable Hyperlipidemia associated with type 2 diabetes mellitus (E11.69) Active confirmed Problem Information temporarily unavailable Diabetes mellitus with hyperglycemia (E11.65) Active confirmed Vital Signs Blood pressure systolic 126 mm Hg 03/07/20 24 Blood pressure diastolic 62 mm Hg 024 Heart Rate 76 /min 03/07/2024 Height 74 in 03/07/2024 Weight 236.8 lbs 03/07/2024 BMI 30.40 kg/m2 03/07/2024 Encounters Encounter Location Date Provider Diagnosis [place] [address] [facility] [address] [place], [place] [id number] 03/07/2024 Richardson Kuhn Hyperlipidemia associated with type [...] Up: 6 Months, Reason: Provider Name:Richardson Dixon, 03/15/2025 09:00:00 AM, [address], [address], [place], [place], [id number], Progress Notes * RAFAELA SKINNERB:1950 (74 yo M)Acc No.[id number]:03/07/2024 Progress Notes Patient: RAFAELA BRITT Provider: Richardson Kuhn M.D. :1950 A ge:73 Y S ex:Male Date:03/07/2024 Address:[facility] [place], [id number] Pcp:Santino Pisano Subjective: * Chief Complaints: * 1 . 6 Month Check Up. 2. Needs laabs with PSA & flu vaccine. * HPI: C ardiology: Pt presents today for a 6 month check up. Needs refill on Montelukast and Albuterol. Pt would like this flu shot today. Pt is fasting today. He continues to follow with the Coumadin clinic at [facility] for monitoring his INR. E NT/respiratory: [...] * Hospitalization/Major Diagno stic Procedure: V ertigo- [facility] ER 10/2016, Elevated Blood Sugar- [facility] ER 05/2020. * Family History: F [...] * Procedure Codes: 9 [address] [place], [address] CAPILLARY BLOOD DRAW, 129[address] GLYCATED HEMOGLOBIN TEST, Modifiers: QW * Follow Up: 6 Months * Images: Billing Information: * Visit Code: 43575 Office Visit, Est Pt., Level 4. * Procedure Codes: [address] [place]. [address] CAPILLARY BLOOD DRAW. 60043 GLYCATED HEMOGLOBIN TEST. Modifiers: QW * Electronic signature of Richardson Kuhn MD on 03/02/2025 at 09:34 AM EDT Sign off status: Pending * Provider: Richardson Kuhn M.D. Date: Generated for Garry andrews/Jacob/eTmargauxitting on: 09:34 AM EDT History and Physical Notes * HPI (History of Present Illness) Category Sub-Category Detail Notes Category Not es Cardiology He continues to follow with the Coumadin clinic at [facility] for monitoring his INR Examination Category [...]
--- OUTSIDE RECORDS SUMMARY | 2024-08-15 09:45 | XMS_ITS ---
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 Name Role Phone Santino Pisano Primary Care Provider [phone] Richardson Kuhn Unavailable [phone] Allergies Allergen (clinical drug ingredient) Drug/Non Drug [...] dose same next check 1 week with [facility] Coumadin Clinic REASON FOR VISIT Discharge F/U from [facility] Medications Medication SIG (Take, Route, Frequency, Duration) [...] Status Risk Notes Problem Information temporarily unavailable COPD (chronic obstructive pulmonary disease) (J44.9) Active confirmed Problem Information temporarily unavailable 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 confirmed Problem Information temporarily unavailable BMI 30.0-30.9,adult (Z68.30) Active confirmed Vital Signs Blood pressure systolic 126 mm Hg 08/16/19 25 Blood pressure diastolic 60 mm Hg 025 Heart Rate 79 /min 08/15/2024 Height 74 in 08/15/2024 Weight 237.6 lbs 08/15/2024 BMI 30.5 kg/m2 08/15/2024 Encounters Encounter Location Date Provider Diagnosis [place] [address] [facility] [address] [place], [place] [phone] 08/15/2024 R Sp Kuhn Acute renal failure N17.9 ; C. [...] his appointment with the Coumadin clinic at [facility] next week 08/15/2024 Essential hypertension (ICD-10 [...] his appointment with the Coumadin clinic at [facility] next week Next Appt Details Follow Up: 3 Months, Reason: Provider Name:Richardson Dixon, 03/15/2025 09:00:00 AM, [address], [address], [place], [phone], Progress Notes * RAFAELA SKINNER MIYADOB:1950 (74 yo M)Acc No.[id number]:08/15/2024 Progress Notes Patient: RAFAELA BRITT Provider: Richardson Kuhn M.D. :1950 A ge:73 Y S ex:Male Date:08/15/2024 Address:[facility] [place], [id number] Pcp:Santino Pisano Subjective: * Chief Complaints: * 1 . Discharge F/U from [facility]. * HPI: H PI: He comes in today for follow-up on recent hospitalization at [facility] for C. difficile colitis, dehydration, and acute renal failure. He apparently had ongoing diarrhea at home for several days and became weak and fell striking his head. This prompted a visit to the [facility] ER. CT scan of the head was negative for intracranial bleeding but he was found to be dehydrated and acute renal failure with creatinine of 5 and supratherapeutic INR. He was then transferred to [facility] for nephrology consultation. I have reviewed available records from [place]. Stool studies confirmed the diagnosis of C. [...] * Hospitalization/Major Diagno stic Procedure: V ertigo- [facility] ER 10/2016, Elevated Blood Sugar- [facility] ER 05/2020. * Family History: F [...] circulatory complications - E11.59 1 0. B [place] 30.0-30.9,adult - Z68.30 Plan: * Treatment: * Labs: * L ab: PT/INR (in house) (Collection Date & Time - 08/15/2024) Value Reference Range P T 3.1 * I NR 36.7 * c urrent dose 7.5mg M,F; 10 mg AOD * n ew dose same * n ext check 1 week with [facility] Coumadin Clinic * Dilcia Proctor 08/15/2024 02:05 :26 PM > Provider reviewed results while patient in office. * Procedure Codes: G 2211 Complex e/[place], [address] PROTHROMBIN TIME, Modifiers: QW , 47197 CAPILLARY BLOOD DRAW, G8722 MOST RECENT SYSTOLIC BP < 140MM HG, G8754 MOST RECENT DIASTOLIC BP < 90MM HG * Follow Up: 3 Months * Images: Billing Information: * Visit Code: 60869 Office Visit, Est Pt., Level 4. * Procedure Codes: G2211 Complex e/[place]. [address] PROTHROMBIN TIME. Modifiers: QW 34904 CAPILLARY BLOOD DRAW. G8752 MOST RECENT SYSTOLIC BP < 140MM HG. G8754 MOST RECENT DIASTOLIC BP < 90MM HG. * Electronic signature of Richardson Kuhn MD on 03/02/2025 at 09:35 AM EDT Sign off status: Pending * Provider: Richardson Kuhn M.D. Date: 0 08/15/2024 Generated for Garry andrews/Jacob/Antoniaransmitting on: 09:35 AM EDT History and Physical Notes * [...]
--- OUTSIDE RECORDS SUMMARY | 2024-09-12 05:00 | XMS_ITS ---
Author Organization [facility] Address [address] [place] [id number] Care Team Providers Care Referral Clerk Name Role Phone Santino Pisano Primary Care Provider Richardson Kuhn Unavailable [phone] Allergies Allergen (clinical drug ingredient) Drug/Non Drug [...] date:09/13/2024 10:37:03 PM Interpretation: Performing Lab: Notes/Report: CLIA: [id number] Ketan Zamora MD, Evaluation Specialist [facility] , [address], [place] [address] Test performed by [facility]), [facility] Sodium 139 135-145 mmol/L Potassium 4.0 3.5-5.3 [...] Interpretation: Performing Lab: Notes/Report: Test performed by [facility]), [facility] [address] [place] [address] , [facility], [place] [address] Ketan Zamora MD, Evaluation Specialist CLIA: [id number] Cholesterol 107 <200 mg/dL Triglycerides 178 <150 [...] Interpretation: Performing Lab: Notes/Report: Test performed by [facility]), [address] , [facility], [place] [address] Ketan Zamora MD, Evaluation Specialist CLIA: [id number] Albumin/Creatinine Ratio, Urine 6 0-30 ug/m g [...] Encounter Location Date Provider Diagnosis [place] [address] [facility] 36 [facility] [address] [place] [id number] 09/12/2024 Richardson Kuhn Hyperlipidemia associated with type [...] Follow Up: 6 Months, Reason: Provider Name:Richardson Sp Josejass apollo, 03/15/2025 09:00:00 AM, [address] [facility] 36 [facility], [address], [place], [phone], Progress Notes * RAFAELA SKINNERDOB:1950 (74 yo M)Acc No.[id number]:09/12/2024 Progress Notes Patient: Bro CASIMIRORAFAELA MIYA Provider: Richardson Kuhn M.D. :1950 A ge:73 Y S ex:Male Date:09/12/2024 Address:[facility] [id number] Pcp:Santino Pisano Subjective: * Chief Complaints: * 1 . 6 months. 2. Needs labs. * HPI: C ardiology: The patient is here today for a check up. Pt states he is doing well and denies any new concerns. Pt states he is fasting. Pt states his last INR was on Wednesday at [facility] and it was 2.9. Denies : Chest [...] * Hospitalization/Major Diagno stic Procedure: V ertigo- [facility] ER 10/2016, Elevated Blood Sugar- [facility] ER 05/2020. * Family History: [...] cardiac pacemaker - Z95.0 5 . B KS 30.0-30.9,adult - Z68.30 Plan: * Treatment: Value [...] G 2211 Complex e/[place], [address] GLYCATED HEMOGLOBIN TEST, Modifiers: QW , 3051F HG A1C>EQUAL 7.0%<8.0%, G8752 MOST RECENT SYSTOLIC BP < 140MM HG, G8754 MOST RECENT DIASTOLIC BP < 90MM HG * Follow Up: 6 Months * Images: Billing Information: * Visit Code: 41389 Office Visit, Est Pt., Level 4. * Procedure Codes: G2211 Complex e/[place]. [address] GLYCATED HEMOGLOBIN TEST. Modifiers: QW 3051F HG A1C>EQUAL 7.0%<8.0%. G8752 MOST RECENT SYSTOLIC BP < 140MM HG. G8754 MOST RECENT DIASTOLIC BP < 90MM HG. * Electronic signature of Richardson Kuhn MD on 03/02/2025 at 09:34 AM EDT Sign off status: Pending * Provider: Richardson Kuhn M.D. Date: 0 09/12/2024 Generated for Calini juliana/Jacob/eTransmitting on: 1 09:34 AM EDT History and Physical Notes [...]
--- OUTSIDE RECORDS SUMMARY | 2024-12-28 06:00 | XMS_ITS ---
Author Organization [facility] Address [address] [facility] [address] [place] [id number] Care Team Providers Care Civil Engineering Design Draftsperson Name Role Phone Santino Pisano Primary Care Provider Richardson Kuhn Unavailable [phone] Allergies Allergen (clinical drug ingredient) Drug/Non Drug [...] Location Date Provider Diagnosis [place] [address] [facility] 36 [facility] [address] [place] [id number] 12/28/2024 Richardson Kuhn Diabetes mellitus wi th [...] 10 MG TAKE 1 TABLET BY ALEJANDRO TH ONCE DAILY metFORMIN HCl ER 500 MG [...] Name:Richardson Dixon, 03/15/2025 09:00:00 AM, [address] [facility] 36 [facility], [address], [place], [id number], Progress Notes * RAFAELA SKINNERDOB:1950 (74 yo M)Acc No.[id number]:12/28/2024 Progress Notes Patient: Bro CASIMIRO RAFAELA HOLLIDAY Provider: Richardson Kunh M.D. :1950 A ge:74 Y S ex:Male Date:12/28/2024 Address:[place], [id number] Pcp:Santino Pisano Subjective: * Chief Complaints: * [...] Diagno stic Procedure: V ertigo- [facility] ER 10/2016, Elevated Blood Sugar- [facility] ER 05/2020. * Family History: F [...] G 2211 Complex e/[place], [address] CAPILLARY BLOOD DRAW, 58[address] GLYCATED HEMOGLOBIN TEST, Modifiers: QW , 3044F HG A1C LEVEL LT 7.0%, 1036F TOBACCO NON-USER, G8783 BP SCR PRFRM RCMDD DEFIND SCR INTVL, G8752 MOST RECENT SYSTOLIC BP < 140MM HG, G8754 MOST RECENT DIASTOLIC BP < 90MM HG * Follow Up: 3 Months * Images: Billing Information: * Visit Code: 13559 Office Visit, Est Pt., Level 3. * Procedure Codes: G2211 Complex e/[place]. [address] CAPILLARY BLOOD DRAW. 77485 GLYCATED HEMOGLOBIN TEST. Modifiers: QW 3044F HG [...] M.D. Date: 0 12/28/2024 Generated for Garry andrews/Jacob/Mariettasmitting on: 1 09:34 AM EDT History and Physical Notes * Examination Category Sub-Category Detail Notes Category Not es General Examination Heart: RSR Lungs: clear to auscultatio n Extremities: no leg edema General Appearance: NAD
--- OUTSIDE RECORDS SUMMARY | 2025-02-05 10:10 | XMS_ITS ---
Author Organization [facility] Address [address] [facility] [address] [place] [id number] Care Team Providers Care Culinary Specialist Name Role Phone Santino Pisano Primary Care Provider Richardson Kuhn [phone] REASON FOR VISIT flu shot Medications Medication [...] Administered Encounters Encounter Location Date Provider Diagnosis [facility] [address] [place], [place] [phone] 02/05/2025 Richardson Kuhn Encounter for immunization Z23 Assessments Encounter Date Diagnosis (ICD Code) Assessment Notes Treatment Notes Treatment Clinical Notes Section Notes 02/05/2025 Encounter for immunization (ICD-10 - Z23) Plan Of Treatment Next Appt Details Provider Name:Richardson Dixon, 03/15/2025 09:00:00 AM, [address], [address], [place], [place], [phone], Progress Notes * RAFAELA SKINNERDaljitDOB:1950 (74 yo M)Acc No.[id number]:02/05/2025 Patient: RAFAELA BRITT Provider: Richardson Kuhn M.D. :1950 A ge:74 Y S ex:Male Date:02/05/2025 Address:[facility] [place], [id number] Pcp:Santino Pisano Subjective: * Chief Complaints: * [...] 0 02/05/2025 Generated for Garry andrews/Jacob/Liana on: 09:35 AM EDT
--- OUTSIDE RECORDS SUMMARY | 2025-03-02 09:34 | XMS_ITS | Clinical Summary ---
Author Organization [facility] Address [address] [place] [address] Care Team Providers Care Human Resources Training Manager Name Role Phone Francisco Kuhn MD Primary Care Provider [phone] Medications methocarbamol (Robaxin) 750 MG tablet Take [...] 1997 [facility]-Zoster Vaccines (1 of 2) 2002 EGD-HMHRL-48 Vaccine (1 - season) 2025 [facility]-Influenza Vaccine [...] to complete this topic Insurance [place] [id number] [place] [address] ANTHEM Care Teams Human Resources Training Manager Relationship Specialty Start Date End Date Francisco Kuhn MD [address] [place] [address] PCP - General 09/20/20
--- OUTSIDE RECORDS SUMMARY | 2025-03-02 09:34 | XMS_ITS | Encounter Summary ---
[facility] Address [address] [place] [address] Care Team Providers Care Pipe Covering Molder Name Role Phone Francisco Kuhn MD Primary Care Provider Reason for Visit * Reason Comments Med Refill Encounter Details Date Type Department Care Team (Late st Contact Info) Description 01/19/2025 Refill [facility] CARDIOLOGY [address] [place] [address] [place] [address] Glenn Lovett MD [address] [facility] [address] [place] [address] Med Refill Social History Tobacco Use Types Packs/Day Years [...] Visit [facility] [address] [facility] [address] [place] [address] Khoi Reynoso MD [address] [facility] [address] [place] [address] documented as of this encounter Visit Diagnoses Diagnosis Essential hypertension Unspecified essential hypertension documented in this encounter Care Teams Pipe Covering Molder Relationship Specialty Start Date End Date Francisco Kuhn MD [facility] [address] [facility] [address] [place] [address] PCP - General 02/25/15 documented as of this encounter
--- OUTSIDE RECORDS SUMMARY | 2025-03-02 09:35 | XMS_ITS | Encounter Summary ---
[facility] Address [address] [place] [address] Care Team Providers Care Agency Sales Development Associate Name Role Phone Francisco Kuhn MD Primary Care Provider Encounter Details Date Type Department Care Team (Late st Contact Info) Description 05/24/2018 External CPT II SILVICULTURIST - [facility] Social History Tobacco Use [...] Description 07/03/2025 3:15 PM EST Office Visit [facility] C[facility]IOLOG[facility] [address] [facility] [address] [place] [phone] Khoi Reynoso MD [address] [facility] [address] [place] [address] documented as of this encounter Visit Diagnoses Not on filedocumented in this encounter Care Teams Agency Sales Development Associate Relationship Specialty Start Date End Date Francisco Kuhn MD [address] [facility] [address] [place] [address] PCP - General 02/25/15 documented as of this encounter
--- OUTSIDE RECORDS SUMMARY | 2025-03-02 09:36 | XMS_ITS | Patient Health Record ---
[facility] Address [address] [facility] [address] [place] [id number] Care Team Providers Care Pharmacy Assistant Name Role Phone Santino Pisano Primary Care Provider [phone] Richardson Kuhn Unavailable [phone] Allergies Allergen (clinical drug ingredient) Drug/Non Drug [...] 30 Performing Lab: Notes/Report: Test performed by [facility] , [address], [place] [address] Ketan Zamora MD, Test Engine Evaluator CLIA: [id number] Sodium 142 135-145 mmol/L Potassium 4.0 3.5-5.3 [...] 32 Performing Lab: Notes/Report: Test performed by [facility], [address] , [facility], [place] [address] Ketan Zamora MD, Test Engine Evaluator CLIA: [id number] Cholesterol 105 <200 mg/dL Triglycerides 181 <150 [...] Interpretation:Normal Performing Lab: Notes/Report: Test performed by [facility], [address] , [facility] C, [place] [address] Ketan Zamora MD, Test Engine Evaluator CLIA: [id number] PSA 1.16 <4.00 ng/mL Please note this [...] dose same next check 1 week with [facility] Coumadin Clinic Glycohemoglobin A1c (in hous e) Reviewed date:09/13/2024 10:29:03 PM Interpretation:7.6% Performing Lab: Notes/Report: 7.6% glycohemoglobin 7.6% 5 - 6.5 % P-Comprehensive Metabolic Pa guicho (CMP) Reviewed date:09/13/2024 10:37:03 PM Interpretation: Performing Lab: Notes/Report: Test performed by [facility] [address] [place] [address] , [address], [place] [address] Ketan Zamora MD, Test Engine Evaluator CLIA: [id number] Sodium 139 135-145 mmol/L Potassium 4.0 3.5-5.3 [...] Interpretation: Performing Lab: Notes/Report: Test performed by [facility] [address] [place] [address] [address], [place] [address] Ketan Zamora MD, Test Engine Evaluator CLIA: [id number] Cholesterol 107 <200 mg/dL Triglycerides 178 <150 [...] Interpretation: Performing Lab: Notes/Report: Test performed by [facility] [address] [place] [address] , [address], [place] [address] Ketan Zamora MD, Test Engine Evaluator EVELYN: [id number] Albumin/Creatinine Ratio, Urine 6 0-30 ug/mg Microalbumin, [...] MG ON MON/FRI; 10 MG ON SUN/TUE/WED/TISHA/SAT. WILL FOLLOW UP [...] SYSTEMIC EMBOLISM SECONDARY TO AMI H-INR Reviewed date:01/21/2025 08:50:13 PM Interpretation:2.9 Performing Lab: Notes/Report: POCINRFS 2.9 0.9-1.1 Results [...] Duration) Notes Start Date End Date Status Carvedilol 6.25 MG 1 tablet with food Orally Twice a day Active CPAP Supplies - as [...] tab(s) orally onc e a day Active DIABETIC SHOES DIRECTED DIRECTED 09/03/2022 Active tiZANidine HCl 4 MG 1 tablet at bedtime as needed Orally Once a day; Duration: 90 days Active Magnesium Oxide 400 MG 1 tab(s) orally o nce a day Active Dicyclomine HCl 10 MG 1 cap(s) orally Tw o times a day 07/28/2022 Active Tamsulosin HCl 0.4 MG 1 capsule Orally Once a day; Duration: 30 days Active Pregabalin 75 MG 1 cap(s) orally once daily Active Symbicort 160-4.5 MCG/ACT INHALE 2 PUFFS BY MOUTH 2 TIMES A DAY (RINSE MOUTH AFTER USE) Active Potassium Chloride ER 10 MEQ 1 capsule with food Orally daily; Duration: 30 days Active Astepro 205.5 MCG/SPRAY 1 spray(s) intranasally 2-4 times a day; Duration: 30 day(s) 11/22/2019 Active Fluticasone Propionate 50 MCG/ACT 2 spray(s) intranasally once a day 07/05/2015 Active metFORMIN HCl ER 500 MG 2 tablets orally twice a day; Duration: 90 days Active Ozempic (0.25 or 0.5 MG/DOSE) 2 MG/3ML 0.25 mg Subcutaneous once a week; Duration: 28 days 12/28/2024 Active Glimepiride 2 MG 1 tab(s) Orally Two times a day Active Farxiga 10 MG 1 tablet Orally Once a day; Duration: 90 days Active Fenofibrate Micronized 134 MG 1 capsule with a meal Orally Once a day; Duration: 30 days Active Warfarin Sodium 5 MG 2 tab(s) Orally Onc e a day; Duration: 90 days Active HYDROcodone-Acetaminop hen 7.5-325 MG 1 tab(s) [...] and older) IM Intramuscular 03/07/2024 Administered Fluzone High Dose (65yr and older) IM Intramuscular 02/05/2025 Administered Fluzone Quad (6months&older) IM Intramuscular 03/04/2023 Administered Hepatitis A (adult) Unknown 05/01/2018 Administered Hepatitis A (adult) IM Intramuscular 11/06/2018 Administer ed PNEUMOVAX 23 VACCINE IM Intramuscular 05/26/2019 Administe red Prevnar (PCV13) IM Intramuscular 05/24/2018 Administered Problems Problem Type SNOMED Code ICD Code Onset Dates Problem Status W/U Status Risk Notes Problem Information temporarily unavailable 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 confirmed Problem Information temporarily unavailable 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 with INR goal of 2.0-3.0 (Z79.01) Active confirmed Problem Information temporarily unavailable COPD (chronic obstructive pulmonary disease) (J44.9) Active confirmed Problem Information temporarily unavailable Essential hypertension (I10) Active confirmed Problem Information temporarily unavailable Seasonal allergies (J30.2) Active confirmed Problem Information temporarily unavailable BMI 30.0-30.9,adult (Z68.30) Active confirmed Problem Information temporarily unavailable Other chronic pain (G89.29) Active confirmed Problem Information temporarily unavailable Hyperlipidemia associated with type 2 diabetes mellitus (E11.69) Active confirmed Problem Information temporarily unavailable Degenerative disc disease, cervical (M50.30) Active confirmed Problem Information temporarily unavailable Status cardiac pacemaker (Z95.0) Active confirmed Problem Information temporarily unavailable Tinnitus of both ears (H93.13) Active confirmed Problem Information temporarily unavailable Degenerative disc disease, thoracic (M51.34) Active confirmed Problem Information temporarily unavailable Irritable bowel syndrome (K58.9) Active confirmed Problem Information temporarily unavailable Mild intermittent asthma without complication (J45.20) Active confirmed Problem Information temporarily unavailable Diabetes mellitus with hyperglycemia (E11.65) Active confirmed Problem Information temporarily unavailable GREG (obstructive sleep apnea) (G47.33) Active confirmed Problem Information temporarily unavailable BMI 31.0-31.9,adult (Z68.31) Active confirmed Problem Information temporarily unavailable Dyslipidemia (E78.5) Active confirmed Problem Information temporarily unavailable Seasonal allergic rhinitis due to pollen (J30.1) Active confirmed Problem Information temporarily unavailable Type 2 diabetes mellitus without complication, without long-term current use of insulin (E11.9) Active confirmed Problem Information temporarily unavailable Bilateral carotid artery 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) Active confirmed Problem Information temporarily unavailable Benign prostatic hyperplasia with lower urinary tract symptoms (N40.1) Active confirmed Problem Information temporarily unavailable Diffuse idiopathic skeletal hyperostosis (M48.10) Active confirmed Problem Information temporarily unavailable 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) Active confirmed Problem Information temporarily unavailable Chronic atrial fibrillation (I48.20) Active confirmed Vital Signs Heart Rate 82 /min 12/28/2024 Blood pressure diastolic 60 mm Hg 12/28/2024 Height 74 in 12/28/2024 Blood pressure systolic 122 mm Hg 12/28/2024 Weight 241.2 lbs 12/28/2024 BMI 30.96 kg/m2 12/28/2024 Encounters Encounter Location Date Provider Diagnosis [facility] [address] [id number] 03/07/2024 Richardson Kuhn Hyperlipidemia associated with type 2 diabetes mellitus E11.69 ; Diabetes mellitus with hyperglycemia E11.65 ; Screening for prostate cancer Z12.5 ; Trismus R25.2 and Encounter for immunization Z23 [facility] [address] [id number] 08/15/2024 Richardson Kuhn Acute renal failure N17.9 [...] circulatory complications E11.59 and BMI 30.0-30.9,adult Z68.30 [facility] [address] [place], [place] [id number] 09/12/2024 R Sp [place] Hyperlipidemia associated with type 2 diabetes mellitus E11.69 ; Diabetes mellitus with hyperglycemia E11.65 ; A-fib I48.91 ; Status cardiac pacemaker Z95.0 and BMI 30.0-30.9,adult Z68.30 [facility] [address] [facility] [address] [place], [place] [id number] 12/28/2024 R Sp [place] Diabetes mellitus wi th hyperglycemia E11.65 ; Type 2 diabetes mellitus with other circulatory complications E11.59 and GREG (obstructive sleep apnea) G47.33 [facility] [address] [facility] [address] [place], [place] [id number] 02/05/2025 R Sp Kuhn Encounter for immunization Z23 [facility] [address] [facility] [address] [place], [place] [id number] 03/12/2024 R Sp [place] [facility] [address] [facility] [address] [place], [place] [id number] 03/28/2024 Santino Pisano [facility] [address] [facility] [address] [place], [place] [id number] 09/12/2024 Santino Pisano GREG (obstructive sle ep apnea) G47.33 [facility] [address] [facility] [address] [place] [id number] 09/13/2024 Santino Pisano [facility] [address] [facility] [address] [place] [id number] 01/22/2025 Santino Pisano [facility] [address] [facility] [address] [place] [id number] 02/05/2025 Santino Pisano Diabetes mellitus wi th hyperglycemia E11.65 Assessments Encounter Date Diagnosis (ICD Code) Assessment [...] type 2 diabetes mellitus (ICD-10 - E11.69) 02/05/2025 Diabetes mellitus with hyperglycemia (ICD-10 - E11.65) 02/05/2025 Encounter for immunization (ICD-10 - Z23) 12/28/2024 GREG (obstructive sleep apnea) (ICD-10 - [...] his appointment with the Coumadin clinic at [facility] next week 09/12/2024 Status cardiac [...] Next Appt Details Provider Name:Richardson Lindsey apollo, 03/15/2025 09:00:00 AM, [address], [address], [place], [place], [id number], Insurance Providers Payer Name Payer Address Payer Phone Subscriber Number Group Number Insured Name Patient Relationship to Insured Coverage Start Date Coverage End Date MEDICARE PART B [address] [address] [place] [id number] [phone] [id number] RAFAELA SKINNER Self - patient is the insured [employer] [address] [place] [address] [phone] [id number] RAFAELA SKINNER Self - patient is the [...] Hospitalization History Reason Date(Month/Year) Elevated Blood Sugar- [facility] ER 05/2020 Vertigo- [facility] ER 10/2016
--- OUTSIDE RECORDS SUMMARY | 2025-03-02 09:36 | XMS_ITS | Clinical Summary ---
Author Organization [facility] Address [address] [place] [id number] Care Team Providers Care Silk Worker Name Role Phone Francisco Kuhn MD Primary [...] (MICRO-K) 10 MEQ CR capsule 4 Active carvedilol (COREG) 12.5 MG tablet Take 1 tablet by mouth 2 (Two) Times a Day. 180 tablet 3 5 Active amLODIPine (NORVASC) 10 MG tablet TAKE 1/2 TABLET BY MOUTH TWICE DAILY 90 tablet 1 5 Active meloxicam (MOBIC) 7.5 MG tablet 1 tablet. 5 Active losartan (COZAAR) 100 MG tabletIndications :Essential hypertension TAKE 1 TABLET BY MOUTH ONCE DAILY 90 tablet 1 5 Active chlorthalidone (HYGROTON) 25 MG tablet TAKE 1 TABLET BY MOUTH ONCE DAILY 90 tablet 1 5 Active Active Problems Problem Noted Date [...] Encounters Date Type Department Care Team Description 01/19/2025 Refill [facility] [address] [facility] [place] [place] [address] Glenn Lovett MD Med Refill from Last 3 Months Family History Medical History Relation Name Comments Cancer Brother Diabetes Brother Alcohol abuse Father Hernández Asthma Father Hernández Arrhythmia Mother Ruth Atrial fibrillation Mother Rtuh Heart disease Mother Ruth Heart failure Mother [...] Office Visit [facility] [address] [place] [address] [address] [place] [phone] Khoi Reynoso MD [address] [facility] [address] [place] [address] Health Maintenance Due Date Last Done Comments COVID-19 Vaccine (#1) 1955 DIABETIC EYE EXAM 1962 DIABETIC FOOT EXAM [...] 09/04/2023 09/03/2022, 02/08, 08/29/2021, Additional history exists INFLUENZA VACCINE 12/08/2024 03/06/2022, , 03/06/2022, Additional history exists COLONOSCOPY 06/01/2026 06/01/2016 COLORECTAL CANCER SCREENING 06/01/2026 Pneumococcal Vaccine 50+ Completed 05/26/2019, 05/10 Medical Devices Implanted Type Area Stove Polisher Device Identifier Shelf Expiration Date Model / Serial / Lot Env Pm Aigisrx Antibac Resorb 2.9x3.3in Lg - [id number] Implanted:Qty: 1 on 03/23/2022 by Khoi Reynoso MD at [facility] Implant [employer] 11/29/2022 [id number] / / [id number] Hemost Abs Surgicel Pwdr 3gm - [id number] Implanted:Qty: 1 on 03/23/2022 by Khoi Reynoso MD at [facility] Implant [employer] J 06/09/2023 [id number] / / [id number] Pacemaker-12/28 Implanted:12/09 by Yvon Hirsch MD (Quantity not on file) Pacemaker [facility] V173 INVIVE ORGAN TUNER-P / [id number] / Gen Pm Visionist Six Pack Loader Operator/P 15.2cc U225 - [id number] - [id number] Implanted:Qty: 1 on 03/23/2022 by Khoi Reynoso MD at [facility] Pacemaker [employer] 01/05/2024 U225 / [id number] / Procedures Procedure Name Priority Date/Time Associated Diagnosis Comments REMOTE DEVICE CHECK 12/27/2024 1 2:41 AM EDT from Last 3 Months Results * Remote Device Check (12/27/2024 12:41 AM EDT) Date Time Interrogation Session [id number] [facility] Type Interrogation Session Remote Scheduled [facility] Implantable Pulse Generator Stove Polisher Here On Biz [employer] [facility] Implantable Pulse Generator Type ORGAN TUNER-P [facility] Implantable Pulse Generator Model U225 [facility] Implantable Pulse Generator Serial Number [id number] [facility] Implantable Pulse Generator Implant Date [id number] [facility] Battery Remaining Percentage 100.00 % [facility] Battery Remaining Longevity 132.0 mo [facility] Battery Status Beginning of Service [facility] Stephan Statistic RA Percent Paced 0.00 [facility] Stephan Statistic RV Percent Paced 99.00 [facility] ORGAN TUNER Statistic LV Percent Paced 99.00 [facility] Lead Channel Setting RA Sensing Sensitivity 0.75 [facility] Lead Channel RA Measurements Date and Time 20241226 [facility] Lead Channel Setting RV Sensing Sensitivity 2.50 [facility] Lead Channel RV Impedance Value 457 [facility] Lead Channel RV Measurements Date and Time 20241226 [facility] Lead Channel Setting RV Pacing Amplitude 2.000 [facility] Lead Channel Setting RV Pacing Pulse Width 0.4 [facility] Lead Channel LV Impedance Value 723 [facility] LV Lead Channel Measurements Date and Time 20241226 [facility] Lead Channel Setting LV Pacing Amplitude 2.000 [facility] Lead Channel Setting LV Pacing Pulse Width 0.4 [facility] Stephan Setting Mode (NBG Code) VVIR [facility] Ventricular chambers paced during ORGAN TUNER pacing. BiV [facility] Stephan Setting Lower Rate Limit 70 [facility] Stephan Setting AT Mode Switch Rate 170 [facility] Stephan Setting Maximum Sensor Rate 130 [facility] ORGAN TUNER LV-RV Delay 0 [facility] Lead Channel Setting RV Sensing Polarity Bipolar [facility] Lead Channel Setting RV Pacing Polarity Bipolar [facility] Lead Channel RV Pacing Threshold Polarity Bipolar [facility] Lead Channel LV Pacing Threshold Polarity Unipolar [facility] Zone Setting Type Category VT [facility] IDC RATE 1 160 [facility] Zone Setting Status Monitor [facility] Zone ID 1 [facility] 12/27/2024 12:4 1 AM EDT us Khoi Reynoso MD CV IMPLANTABLE CARDIAC DEVICE Fi nal Result Performing Organization Address City/State/[facility] Co de Phone Number [facility] from Last 3 Months Insurance MEDICARE A & B Care Teams Silk Worker Relationship Specialty Start Date End Date Francisco Kuhn MD [address] [place] [id number] PCP - General 02/25/15
--- OUTSIDE RECORDS SUMMARY | 2025-03-02 09:37 | XMS_ITS | Encounter Summary ---
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 [address] [facility] [address] [place] [phone] Khoi Reynoso MD [address] [facility] [address] [place] [address] documented as of this encounter Visit Diagnoses Not on filedocumented in this encounter Care Teams Correctional Cook Relationship Specialty Start Date End Date Francisco Kuhn MD [address] [place] [facility] [address] [place] [address] PCP - General 02/25/15 documented as of this encounter
[2025-03-02 10:33] LABS: PHA INR Fingerstick 3.3 (0.9-1.1)
== END 2025-03-02 10:36 ==
LOC: ACC 09:22
PROVIDERS: PCP Family Medicine; Visit Provider Family Medicine
DX: I48.91 Unspecified atrial fibrillation (principal); Z79.01 Long term (current) use of anticoagulants
CPT/HCPCS: 85610; 99211; G0463

== ENCOUNTER 2025-03-23 09:22 | Outpatient (CLI) | payer MEDICARE, BC, SELFPAY ==
[2025-03-23 12:33] LABS: PHA INR Fingerstick 2.4 (0.9-1.1)
== END 2025-03-23 23:59 | disposition home or self-care (01) ==
LOC: ACC 09:22
PROVIDERS: PCP Family Medicine; Visit Provider Family Medicine
DX: I48.91 Unspecified atrial fibrillation (principal); Z79.01 Long term (current) use of anticoagulants
CPT/HCPCS: 85610; 99211; G0463

== ENCOUNTER 2025-04-27 09:21 | Outpatient (CLI) | payer MEDICARE, BC, SELFPAY ==
--- OUTSIDE RECORDS SUMMARY | 2024-03-07 04:00 | XMS_ITS ---
Author Organization [facility] Address [address] [place] [id number] Care Team Providers Care Gluing Machine Operator Electronic Name Role Phone Santino Pisano Primary Care Provider Richardson Kuhn [phone] Allergies Allergen (clinical drug ingredient) Drug/Non Drug Allergy documented on EMR Reaction Allergy Type Onset Date Status Levaquin neuropathy Drug Allergy Active metoprolol Metoprolol headache Drug Allergy Activ e vancomycin Vancomycin Unknown Drug Allergy Activ e Results Component Value Reference Range Notes Glycohemoglobin A1c (in hous e) Reviewed date:03/12/2024 09:01:45 PM Interpretation:7.2% Performing Lab: Notes/Report: 7.2% glycohemoglobin 7.2% 5 - 6.5 % P-Comprehensive Metabolic Pa guicho (CMP) Reviewed date:03/12/2024 09:01:45 PM Interpretation:gluc 130, alk phos 30 Performing Lab: Notes/Report: Test performed by [facility], [place] [address] , [address], [place] [address] Ketan Zamora MD, Signs Sales Representative CLIA: [id number] Sodium 142 135-145 mmol/L Potassium 4.0 3.5-5.3 mmol/L Chloride 105 97-108 mmol/L CO2 25 22-32 mmol/L Glucose 130 65-99 mg/dL BUN 21 8-23 mg/dL Creatinine 1.11 0.70-1.30 mg/dL Calcium 9.9 8.6-10.4 mg/dL eGFR by Creatinine 71 >59 mL/min/1.73m2 Protein 6.9 6.0-8.3 g/dL Albumin 4.1 3.5-5.3 g/dL Alkaline Phosphatase 30 40-129 IU/L ALT (SGPT) 19 <5-55 IU/L AST (SGOT) 23 <5-46 IU/L Bilirubin, Total 0.6 <0.2-1.2 mg/dL A/G Ratio 1.5 1.1-2.5 P-Lipid Panel Reviewed date:03/12/2024 09:01:45 PM Interpretation:trigs 181, hdl 32 Performing Lab: Notes/Report: Test performed by [facility], [address] , [address], [place] [address] Ketan Zamora MD, Signs Sales Representative CLIA: [id number] Cholesterol 105 <200 mg/dL Triglycerides 181 <150 mg/dL HDL Cholesterol 32 >39 mg/dL Cholesterol / HDL Ratio 3.28 0.00-4.99 Ratio Non-HDL Cholesterol 73 <130 mg/dL LDL Cholesterol (Calculation) 37 <130 mg/dL LDL Cholesterol Levels* Less than 100 mg/dL Optimal 100 to 129 mg/dL Near Optimal/ Above Optimal 130 to 159 mg/dL Borderline High 160 to 189 mg/dL High 190 mg/dL and above Very High * Categories as recommended by the 2004 ATPIII guidelines LDL/HDL Ratio 1.1 <3.3 Ratio LDL Cholesterol Patient History Test Date: 03/04/2023 LDL Results: 37 Units: mg/dL % Change: -7% Test Date: 09/03/2023 LDL Results: 31 Units: mg/dL % Change: -16% Test Date: 03/07/2024 LDL Results: 37 Units: mg/dL % Change: +19% P-PSA Reviewed date:03/12/2024 09:01:45 PM Interpretation:Normal Performing Lab: Notes/Report: Test performed by [facility], [address] , [facility], [place] [address] Ketan Zamora MD, Signs Sales Representative CLIA: [id number] PSA 1.16 <4.00 ng/mL Please note this is an ultrasensitive PSA assay with a lower limit of detection of 0.014 ng/mL. This test is performed by the Agust[employer] ECLIA methodology. Values obtained with different assay methods or kits cannot be directly compared. REASON FOR VISIT 6 Month Check Up, Needs laabs with PSA & flu vaccine Medications Medication SIG (Take, Route, Frequency, Duration) Notes Start Date End Date Status Fenofibrate Micronized 134 MG TAKE 1 CAPSULE BY MOUTH ONCE DAILY; Duration: 30 Active Rosuvastatin Calcium 40 MG 1/2 tab(s) orally once a day per Dr Lovett 06/04/2020 Active metFORMIN HCl ER 500 MG 2 TABLETS Orally twice a day; Duration: 30 days Active Azelastine HCl 137 MCG/SPRAY 2 spray(s) intranasally 2 times a day Active Tamsulosin HCl 0.4 MG TAKE 1 CAPSULE BY MOUTH ONCE DAILY; Duration: 30 days Active DIABETIC SHOES DIRECTED DIRECTED 09/03/2022 Active Carvedilol 6.25 MG 1 tablet with food Orally Twice a day Active amLODIPine Besylate 5 MG 1 tab(s) orally once a day Active Chlorthalidone 25 MG 1 tab(s) orally onc e a day Active Cozaar 100 MG 1 tab(s) orally once a day Active Dicyclomine HCl 10 MG 1 cap(s) orally Tw o times a day 07/28/2022 Active Pregabalin 75 MG 1 cap(s) orally once daily Active Symbicort 160-4.5 MCG/ACT INHALE 2 PUFFS BY MOUTH 2 TIMES A DAY (RINSE MOUTH AFTER USE) Active Magnesium Oxide 400 MG 1 tab(s) orally o nce a day Active Betamethasone Dipropionate Aug 0.05 % 1 adela applied topically 2 times a day 01/29/2022 Active HYDROcodone-Acetaminoph en 7.5-325 MG 1 tab(s) orally bid Active Meclizine HCl 12.5 MG 1 tab(s) orally 3 times a day prn 06/28/2019 Active Astepro 205.5 MCG/SPRAY 1 spray(s) intranasally 2-4 times a day; Duration: 30 day(s) 11/22/2019 Active Fluticasone Propionate 50 MCG/ACT 2 spray(s) intranasally once a day 07/05/2015 Active Cetirizine HCl 10 MG 1 tab(s) orally onc e a day Active CPAP Supplies - as directed as directed 09/03/2023 Active Farxiga 10 MG 1 tablet Orally Once a day; Duration: 30 day(s) Active Albuterol Sulfate HFA 108 (90 Base) MCG/ACT 2 puff(s) inhaled every 6 hours; Duration: 30 day(s) Active Montelukast Sodium 10 MG 1 tablet Orally Once a day Active Aspirin 81 81MG DIRECTED QD Active tiZANidine HCl 4 MG TAKE 1 TABLET BY MOUTH AT BEDTIME; Duration: 30 days Active Potassium Chloride ER 10 MEQ TAKE 1 CAPSULE BY MOUTH ONCE DAILY; Duration: 30 Active Warfarin Sodium 5 MG TAKE 2 TABLETS BY MOUTH ONCE DAILY; Duration: 30 days Active Glimepiride 2 MG 1 tab(s) orally 2 times a day; Duration: 30 days Active Immunizations Vaccine Route Administration Date Status Comme nts Fluzone High Dose (65yr and older) IM Intramuscular 03/07/2024 Administered Problems Problem Type SNOMED Code ICD Code Onset Dates Problem Status W/U Status Risk Notes Problem Hyperlipidemia due to type 2 diabetes mellitus (disorder) (235623470360491) Hyperlipidemia associated with type 2 diabetes mellitus (E11.69) Active confirmed Problem Hyperglycemia due to type 2 diabetes mellitus (270447450104676) Diabetes mellitus with hyperglycemia (E11.65) Active confirmed Vital Signs Blood pressure systolic 126 mm Hg 03/07/20 24 Blood pressure diastolic 62 mm Hg 024 Heart Rate 76 /min 03/07/2024 Height 74 in 03/07/2024 Weight 236.8 lbs 03/07/2024 BMI 30.40 kg/m2 03/07/2024 Encounters Encounter Location Date Provider Diagnosis [place] [address] [facility] [address] [facility] [address] [place], [place] [id number] 03/07/2024 Richardson uKhn Hyperlipidemia associated with type 2 diabetes mellitus E11.69 ; Diabetes mellitus with hyperglycemia E11.65 ; Screening for prostate cancer Z12.5 ; Trismus R25.2 and Encounter for immunization Z23 Assessments Encounter Date Diagnosis (ICD Code) Assessment Notes Treatment Notes Treatment Clinical Notes Section Notes 03/07/2024 Hyperlipidemia associated with type 2 diabetes mellitus (ICD-10 - E11.69) 03/07/2024 Diabetes mellitus with hyperglycemia (ICD-10 - E11.65) 03/07/2024 Screening for prostate cancer (ICD-10 - Z12.5) 03/07/2024 Trismus (ICD-10 - R25.2) Continue f/u with ENT 03/07/2024 Encounter for immunization (ICD-10 - Z23) Plan Of Treatment Medication Medication Name Sig Start Date Stop Date Notes Albuterol Sulfate HFA 108 (9 0 Base) MCG/ACT 2 puff(s) inhaled every 6 hours; Duration: 30 day(s) Montelukast Sodium 10 MG 1 tablet Orally Once a day Treatment Notes Assessment Notes Trismus Continue f/u with EN T Next Appt Details Follow Up: 6 Months, Reason: Provider Name:Richardson Dixon, 09/13/2025 09:00:00 AM, [address], [address], [place], [place], [id number], Progress Notes * RAFAELA SKINNERDOB:1950 (74 yo M)Acc No.[id number]:03/07/2024 Progress Notes Patient: RAFAELA BRITT Provider: Richardson Kuhn M.D. :1950 A ge:73 Y S ex:Male Date:03/07/2024 Address:[facility] [place], [id number] Pcp:Santino Pisano Subjective: * Chief Complaints: * 1 . 6 Month Check Up. 2. Needs laabs with PSA & flu vaccine. * HPI: C ardiology: Pt presents today for a 6 month check up. Needs refill on Montelukast and Albuterol. Pt would like this flu shot today. Pt is fasting today. He continues to follow with the Coumadin clinic at [facility] for monitoring his INR. E NT/respiratory: He has been following with ENT for trismus and a right jaw mass. Please refer to consult notes in chart. This started after having it tooth excised almost [address] scan of the head and neck did not show any obvious masses. * ROS: D ERMATOLOGY: no R isai. n o H rachell. G ASTROENTEROLOGY: no N ausea. n o V omiting. U ROLOGY: no D ifficulty urinating. n o B lood in urine. * Medical History: C HRONIC AF - resolved 08/13 after ablation , HYPERLIPIDEMIA, Heart Cath 03/19 50% EF, 30-40% plaque left main coronary, GREG, Pacemaker, DISH, Colon polyps, DDD of spine, Obstructive Chronic Broncitis - Dr. Hall, Mild asthma - Dr. Hall, Tamez's esophagus - EGD/ Dr. Velasquez -06/01/16, HBP, 20-49% stenosis, R and L carotid arteries, Type 2 DM. * Surgical History: H iatal Hernia Repair , Pacemaker 2003, LT Breast Mass Removal, Benign 12/2005, Colonoscopy, 6 Polyps Removed, Dr. Velasquez 02/2012; 05/2016, EGD/ Dr. Velasquez/ Tamez's esophagus 06/01/2016, Cholecystectomy 03/2012, Cardiac Pacemaker Changed 12/08/2012, Pacemaker Replacement 03/23/2022, Colonoscopy/ Allran/ tubular adenoma/ 2 yr f/u 06/18/23. * Hospitalization/Major Diagno stic Procedure: V ertigo- [facility] ER 10/2016, Elevated Blood Sugar- [facility] ER 05/2020. * Family History: F ather: [...] smoke. Alcohol: no. * Medications: T aking Montelukast Sodium 10 MG Tablet 1 tablet Orally Once a day , Taking Aspirin 81 81MG DIRECTED QD , Taking [...] orally Two times a day , Taking DIABETIC SHOES DIRECTED DIRECTED , Taking Carvedilol 6.25 MG Tablet 1 tablet with food Orally Twice a day , Taking amLODIPine Besylate 5 MG Tablet 1 tab(s) orally once a day , Taking Chlorthalidone 25 MG Tablet 1 tab(s) orally once a day , Taking Cozaar 100 MG Tablet 1 tab(s) orally once a day , Taking Rosuvastatin Calcium 40 MG Tablet 1/2 tab(s) orally once a day , Notes to Pharmacist: per Dr Lovett, Taking metFORMIN HCl ER 500 MG Tablet Extended Release 24 Hour 2 TABLETS Orally twice a day , Taking Azelastine HCl 137 MCG/SPRAY Solution 2 spray(s) intranasally 2 times a day , Taking Tamsulosin HCl 0.4 MG Capsule TAKE 1 CAPSULE BY MOUTH ONCE DAILY , Taking Fenofibrate Micronized 134 MG Capsule TAKE 1 CAPSULE BY MOUTH ONCE DAILY , Taking tiZANidine HCl 4 MG Tablet TAKE 1 TABLET BY MOUTH AT BEDTIME , Taking Potassium Chloride ER 10 MEQ Capsule Extended Release TAKE 1 CAPSULE BY MOUTH ONCE DAILY , Taking Warfarin Sodium 5 MG Tablet TAKE 2 TABLETS BY MOUTH ONCE DAILY , Taking Glimepiride 2 MG Tablet 1 tab(s) orally 2 times a day , Taking CPAP Supplies - - as directed as directed , Taking Farxiga 10 MG Tablet 1 tablet Orally Once a day , Medication List reviewed and reconciled with the patient * Allergies: V ancomycin, Levaquin: neuropathy - Side Effects, Metoprolol: headache - Side Effects. Objective: * Vitals: W t:236.8, Temp:97.9, BP:126/62, HR:76, O2 Sat:99% on RA, Nurse:JENN, Ht: 74, BMI:30.40. * Examination: C ardiology: General Appearance: p leasant, NAD. H EENT: T rismus noted. He is only able to open his incisors to about a centimeter. There is tenderness over the right masseter muscle. No obvious mass.. H eart sounds: I rregularly irregular. M urmur, click , gallop: n one. L ungs: c lear, no rales or wheezes. E xtremities: n o leg edema. Assessment: * Assessment: 1. H yperlipidemia associated with type 2 diabetes mellitus - E11.69 (Primary) 2 . D iabetes mellitus with hyperglycemia - E11.65 3 . S creening for prostate cancer - Z12.5 4 . T rismus - R25.2 5 . E ncounter for immunization - Z23 Plan: * Treatment: Value Reference Range A /G Ratio 1.5 1.1-2.5 - * A lbumin 4.1 3.5-5.3 - g/dL * A lkaline Phosphatase 30 L 40-129 - IU/L * A LT (SGPT) 19 <5-55 - IU/L * A ST (SGOT) 23 <5-46 - IU/L * B ilirubin, Total 0.6 <0.2-1.2 - mg/dL * B UN 21 8-23 - mg/dL * C alcium 9.9 8.6-10.4 - mg/dL * C hloride 105 97-108 - mmol/L * C O2 25 22-32 - mmol/L * C reatinine 1.11 0.70-1.30 - mg/dL * G lucose 130 H 65-99 - mg/dL * P otassium 4.0 3.5-5.3 - mmol/L * S odium 142 135-145 - mmol/L * P rotein 6.9 6.0-8.3 - g/dL * e GFR by Creatinine 71 >59 - mL/min/1.73m2 * Richardson Kuhn 03/12/2024 9 :01:36 PM >See phone encounter ?LAB: P-Lipid Panel (Collection Date & Time - 03/07/2024 08:31 AM)?trigs 181, hdl 32* Value Reference Range C holesterol / HDL Ratio 3.28 0.00-4.99 - Ratio * C holesterol 105 <200 - mg/dL * H DL Cholesterol 32 L >39 - mg/dL * L DL Cholesterol (Calculation) 37 <130 - mg/d L * L DL/HDL Ratio 1.1 <3.3 - Ratio * N on-HDL Cholesterol 73 <130 - mg/dL * T riglycerides 181 H <150 - mg/dL * Richardson Kuhn 03/12/2024 9 :01:36 PM >See phone encounter 2.?Diabetes mellitus with hyperglycemia?LAB: Glycohemoglobin A1c (in house) (Collection Date & Time - 03/07/2024)? 7.2%* Value Reference Range g lycohemoglobin 7.2% 5 - 6.5 % * Hyacinth Regalado 03/07/2024 11: 27:45 AM > Richardson Kuhn 03/12/2024 9:01:36 PM >See phone encounter 3.?Screening for prostate cancer?LAB: P-PSA (Collection Date & Time - 03/07/2024 08:31 AM)?Normal* Value Reference Range P SA 1.16 <4.00 - ng/mL * Richardson Kuhn 03/12/2024 9 :01:36 PM >See phone encounter 4.?Trismus? Notes: Continue f/u with ENT??5.?Others? Refill Albuterol Sulfate HFA Aerosol Solution, 108 (90 Base) MCG/ACT, 2 puff(s), inhaled, every 6 hours, 30 day(s), 1, Refills 5;?Refill Montelukast Sodium Tablet, 10 MG, 1 tablet, Orally, Once a day, 90, Refills 1.?? * Immunizations: Fluzone High Dose (65yr and older) : 0.5 mL (Route: Intramuscular) given by Hyacinth Regalado on Right Deltoid (Encounter for immunization) * Procedure Codes: [address] [place], [address] CAPILLARY BLOOD DRAW, [address] GLYCATED HEMOGLOBIN TEST, Modifiers: QW * Follow Up: 6 Months * Images: Billing Information: * Visit Code: 48451 Office Visit, Est Pt., Level 4. * Procedure Codes: [address] [place]. [address] CAPILLARY BLOOD DRAW. [address]97 GLYCATED HEMOGLOBIN TEST. Modifiers: QW * Electronic signature of Richardson Kuhn MD on 04/27/2025 at 09:23 AM EST Sign off status: Pending * Provider: Richardson Kuhn M.D. Date: 1 Generated for Garry andrews/Jacob/Liana on: 06/28/2024 09:23 AM EST History and Physical Notes * HPI (History of Present Illness) Category Sub-Category Detail Notes Category Not es Cardiology He continues to follow with the Coumadin clinic at [facility] for monitoring his INR Examination Category Sub-Category Detail Notes Category Not es Cardiology Lungs: clear, no rales or wheezes HEENT: Trismus noted. He is only able to open his incisors to about a centimeter. There is tenderness over the right masseter muscle. No obvious mass. Heart sounds: Irregularly irregula r Extremities: no leg edema Murmur, click , gallop: none General Appearance: pleasant, NAD
--- OUTSIDE RECORDS SUMMARY | 2024-08-15 08:45 | XMS_ITS ---
Author Organization [facility] Address [address] [facility] [address] [place] [phone] Care Team Providers Care Furnace Maintenance Name Role Phone Santino Pisano Primary Care Provider Richardson Kuhn [phone] Allergies Allergen (clinical drug ingredient) Drug/Non Drug Allergy documented on EMR Reaction Allergy Type Onset Date Status Levaquin neuropathy Drug Allergy Active metoprolol Metoprolol headache Drug Allergy Activ e vancomycin Vancomycin Unknown Drug Allergy Activ e Results Component Value Reference Range Notes PT/INR (in house) Reviewed date:08/16/2024 10:37:55 PM Interpretation: Performing Lab: Notes/Report: PT 3.1 INR 36.7 current dose 7.5mg M,F; 10 mg AOD new dose same next check 1 week with [facility] Coumadin Clinic REASON FOR VISIT Discharge F/U from [facility] Medications Medication SIG (Take, Route, Frequency, Duration) Notes Start Date End Date Status Potassium Chloride ER 10 MEQ TAKE 1 CAPSULE BY MOUTH ONCE DAILY; Duration: 30 Active Fenofibrate Micronized 134 MG TAKE 1 CAPSULE BY MOUTH ONCE DAILY; Duration: 30 Active tiZANidine HCl 4 MG TAKE 1 TABLET BY MOUTH AT BEDTIME; Duration: 30 Active Warfarin Sodium 5 MG TAKE 2 TABLETS BY MOUTH ONCE DAILY; Duration: 30 Active Glimepiride 2 MG TAKE 1 TABLET BY MOUTH TWICE DAILY; Duration: 30 Active Albuterol Sulfate HFA 108 (90 Base) MCG/ACT 2 puff(s) inhaled every 6 hours; Duration: 30 day(s) Active Montelukast Sodium 10 MG 1 tablet Orally Once a day Active metFORMIN HCl ER 500 MG TAKE 2 TABLETS B Y MOUTH TWICE DAILY; Duration: 30 Active Azelastine HCl 137 MCG/SPRAY SHAKE WELL AND INHALE 2 SPRAY(S) INTRANASALLY 2 TIMES A DAY DIRECTED; Duration: 30 Active Tamsulosin HCl 0.4 MG TAKE 1 CAPSULE BY MOUTH ONCE DAILY; Duration: 30 days Active Chlorthalidone 25 MG 1 tab(s) orally onc e a day Active Cozaar 100 MG 1 tab(s) orally once a day Active Rosuvastatin Calcium 40 MG 1/2 tab(s) orally once a day per Dr Lovett 06/04/2020 Active CPAP Supplies - as directed as directed 09/03/2023 Active Farxiga 10 MG 1 tablet Orally Once a day; Duration: 30 day(s) Active Betamethasone Dipropionate Aug 0.05 % 1 adela applied topically 2 times a day 01/29/2022 Active Dicyclomine HCl 10 MG 1 cap(s) orally Tw o times a day 07/28/2022 Active DIABETIC SHOES DIRECTED DIRECTED 09/03/2022 Active Carvedilol 6.25 MG 1 tablet with food Orally Twice a day Active amLODIPine Besylate 5 MG 1 tab(s) orally once a day Active Magnesium Oxide 400 MG 1 tab(s) orally o nce a day Active Astepro 205.5 MCG/SPRAY 1 spray(s) intranasally 2-4 times a day; Duration: 30 day(s) 11/22/2019 Active Fluticasone Propionate 50 MCG/ACT 2 spray(s) intranasally once a day 07/05/2015 Active Pregabalin 75 MG 1 cap(s) orally once daily Active Symbicort 160-4.5 MCG/ACT INHALE 2 PUFFS BY MOUTH 2 TIMES A DAY (RINSE MOUTH AFTER USE) Active Aspirin 81 81MG DIRECTED QD Active HYDROcodone-Acetaminoph en 7.5-325 MG 1 tab(s) orally bid Active Meclizine HCl 12.5 MG 1 tab(s) orally 3 times a day prn 06/28/2019 Active Problems Problem Type SNOMED Code ICD Code Onset Dates Problem Status W/U Status Risk Notes Problem COPD - Chronic obstructive pulmonary disease (56334497) COPD (chronic obstructive pulmonary disease) (J44.9) Active confirmed Problem Peripheral circulatory disorder associated with diabetes mellitus (548420997) 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 confirmed Problem Body mass index 30+ - obesity (578869821) BMI 30.0-30.9,adult (Z68.30) Active confirmed Vital Signs Blood pressure systolic 126 mm Hg 08/16/19 25 Blood pressure diastolic 60 mm Hg 025 Heart Rate 79 /min 08/15/2024 Height 74 in 08/15/2024 Weight 237.6 lbs 08/15/2024 BMI 30.5 kg/m2 08/15/2024 Encounters Encounter Location Date Provider Diagnosis [place] [address] [facility] [address] [place], [place] [phone] 08/15/2024 Richardson Kuhn Acute renal failure N17.9 ; C. difficile colitis A04.72 ; Type 2 diabetes mellitus without complication, without long-term current use of insulin E11.9 ; Chronic atrial fibrillation I48.20 ; Essential hypertension I10 ; Dyslipidemia E78.5 ; COPD (chronic obstructive pulmonary disease) J44.9 ; Hyperlipidemia associated with type 2 diabetes mellitus E11.69 ; Type 2 diabetes mellitus with other circulatory complications E11.59 and BMI 30.0-30.9,adult Z68.30 Assessments Encounter Date Diagnosis (ICD Code) Assessment Notes Treatment Notes Treatment Clinical Notes Section Notes 08/15/2024 Acute renal failure (ICD-10 - N17.9) ----resolved 08/15/2024 C. difficile colitis (ICD-10 - A04.72) ----resolved 08/15/2024 Type 2 diabetes mellitus without complication, without long-term current use of insulin (ICD-10 - E11.9) 08/15/2024 Chronic atrial fibrillation (ICD-10 - I48.20) INR is mildly supratherapeuti c. He is instructed to decrease his Coumadin dose by half for the next 2 days and keep his appointment with the Coumadin clinic at [facility] next week 08/15/2024 Essential hypertension (ICD-10 - I10) 08/15/2024 Dyslipidemia (ICD-10 - E78.5) 08/15/2024 COPD (chronic obstructive pulmonary disease) (ICD-10 - J44.9) 08/15/2024 Hyperlipidemia associated with type 2 diabetes mellitus (ICD-10 - E11.69) 08/15/2024 Type 2 diabetes mellitus with other circulatory complications (ICD-10 - E11.59) 08/15/2024 BMI 30.0-30.9,adult (ICD-10 - Z68.30) Plan Of Treatment Treatment Notes Assessment Notes Chronic atrial fibrillation INR is mildl y supratherapeutic. He is instructed to decrease his Coumadin dose by half for the next 2 days and keep his appointment with the Coumadin clinic at [facility] next week Next Appt Details Follow Up: 3 Months, Reason: Provider Name:Richardson Dixon, 09/13/2025 09:00:00 AM, [address], [address], [place], [phone], Progress Notes * RAFAELA SKINNERDOB:1950 (74 yo M)Acc No.[id number]:08/15/2024 Progress Notes Patient: Bro CASIMIRO RAFAELA HOLLIDAY Provider: Richardson Kuhn M.D. :1950 A ge:73 Y S ex:Male Date:08/15/2024 Address:[address] [place], [place] [address], [id number] Pcp:Santino Pisano Subjective: * Chief Complaints: * 1 . Discharge F/U from [facility]. * HPI: H PI: He comes in today for follow-up on recent hospitalization at [facility] for C. difficile colitis, dehydration, and acute renal failure. He apparently had ongoing diarrhea at home for several days and became weak and fell striking his head. This prompted a visit to the [facility] ER. CT scan of the head was negative for intracranial bleeding but he was found to be dehydrated and acute renal failure with creatinine of 5 and supratherapeutic INR. He was then transferred to [facility] for nephrology consultation. I have reviewed available records from [place]. Stool studies confirmed the diagnosis of C. difficile colitis and he was treated with vancomycin. He has completed this course and his stool is back to normal. His acute renal failure improved with IV fluid hydration and at the time of discharge his creatinine was back to 1.0. E ndocrinology: He is requesting a prescription for new diabetic shoes. He denies any current issues with his feet. He does have some paresthesias. * ROS: D ERMATOLOGY: no R isai. [...] R and L carotid arteries, Type 2 DM, COPD. * Surgical History: H iatal Hernia Repair , Pacemaker 2003, LT Breast Mass Removal, Benign 12/2005, Colonoscopy, 6 Polyps Removed, Dr. Velasquez 02/2012; 05/2016, EGD/ Dr. Velasquez/ Tamez's esophagus 06/01/2016, Cholecystectomy 03/2012, Cardiac Pacemaker Changed 12/08/2012, Pacemaker Replacement 03/23/2022, Colonoscopy/ Allran/ tubular adenoma/ 2 yr f/u 06/18/23. * Hospitalization/Major Diagno stic Procedure: V ertigo- [facility] ER 10/2016, Elevated Blood Sugar- [facility] ER 05/2020. * Family History: F ather: [...] intranasally 2-4 times a day , Taking Fluticasone Propionate 50 MCG/ACT Suspension 2 spray(s) intranasally once a day , Taking Pregabalin 75 [...] Notes to Pharmacist: per Dr Lovett, Taking CPAP Supplies - - as directed as directed , Taking Farxiga 10 MG Tablet 1 tablet Orally Once a day , Taking Albuterol Sulfate HFA 108 (90 Base) MCG/ACT Aerosol Solution 2 puff(s) inhaled every 6 hours , Taking Montelukast Sodium 10 MG Tablet 1 tablet Orally Once a day , Taking metFORMIN HCl ER 500 MG Tablet Extended Release 24 Hour TAKE 2 TABLETS BY MOUTH TWICE DAILY , Taking Azelastine HCl 137 MCG/SPRAY Solution SHAKE WELL AND INHALE 2 SPRAY(S) INTRANASALLY 2 TIMES A DAY DIRECTED , Taking Tamsulosin HCl 0.4 MG Capsule TAKE 1 CAPSULE BY MOUTH ONCE DAILY , Taking Potassium Chloride ER 10 MEQ Capsule Extended Release TAKE 1 CAPSULE BY MOUTH ONCE DAILY , Taking Fenofibrate Micronized 134 MG Capsule TAKE 1 CAPSULE BY MOUTH ONCE DAILY , Taking tiZANidine HCl 4 MG Tablet TAKE 1 TABLET BY MOUTH AT BEDTIME , Taking Warfarin Sodium 5 MG Tablet TAKE 2 TABLETS BY MOUTH ONCE DAILY , Taking Glimepiride 2 MG Tablet TAKE 1 TABLET BY MOUTH TWICE DAILY , Medication List reviewed and reconciled with the patient * Allergies: V ancomycin, Levaquin: neuropathy - Side Effects, Metoprolol: headache - Side Effects. Objective: * Vitals: W t: 237.6, Temp: 97.8, BP: 126/60, HR: 79, Nurse: sahara, Ht: 74, BMI:30.5. * Examination: G eneral Examination: General Appearance: N AD. O ral cavity: M ucous membranes moist. H eart: irregularly irregular rhythm. L ungs: c lear to auscultation. E xtremities: E xam of the feet show no obvious deformity. No ulcerations or calluses. Distal pulses are diminished. He has decreased sensation to M onofilament testing on the soles of his feet.. Assessment: * Assessment: 1. A cute renal failure - N17.9 (Primary) N otes :----resolved 2 . C . difficile colitis - A04.72 N otes :----resolved 3 . T ype 2 diabetes mellitus without complication, without long-term current use of insulin - E11.9 4 . C hronic atrial fibrillation - I48.20 ?5. E ssential hypertension - I10 6 . D yslipidemia - E78.5 ?7. C OPD (chronic obstructive pulmonary disease) - J44.9 8 . H yperlipidemia associated with type 2 diabetes mellitus - E11.69 9 . T ype 2 diabetes mellitus with other circulatory complications - E11.59 1 0. B MT 30.0-30.9,adult - Z68.30 Plan: * Treatment: * Labs: * L ab: PT/INR (in house) (Collection Date & Time - 08/15/2024) Value Reference Range P T 3.1 * I NR 36.7 * c urrent dose 7.5mg M,F; 10 mg AOD * n ew dose same * n ext check 1 week with [facility] Coumadin Clinic * Dilcia Proctor 08/15/2024 02:05 :26 PM > Provider reviewed results while patient in office. * Procedure Codes: G 2211 Complex e/[place], [address] PROTHROMBIN TIME, Modifiers: QW , 63371 CAPILLARY BLOOD DRAW, G6982 MOST RECENT SYSTOLIC BP < 140MM HG, G8754 MOST RECENT DIASTOLIC BP < 90MM HG * Follow Up: 3 Months * Images: Billing Information: * Visit Code: 75721 Office Visit, Est Pt., Level 4. * Procedure Codes: G2211 Complex e/[place]. [address] PROTHROMBIN TIME. Modifiers: QW 67459 CAPILLARY BLOOD DRAW. G8752 MOST RECENT SYSTOLIC BP < 140MM HG. G8754 MOST RECENT DIASTOLIC BP < 90MM HG. * Electronic signature of Richardson Kuhn MD on 04/27/2025 at 09:23 AM EST Sign off status: Pending * Provider: Richardson Kuhn M.D. Date: 0 08/15/2024 Generated for Garry andrews/Jacob/Tanaitting on: 1 06/28/2024 09:23 AM EST History and Physical Notes * Examination Category Sub-Category Detail Notes Category Not es General Examination Heart: irregularly irregular rhythm Lungs: clear to auscultatio n Extremities: Exam of the feet liana w no obvious deformity. No ulcerations or calluses. Distal pulses are diminished. He has decreased sensation to Monofilament testing on the soles of his feet. General Appearance: NAD Oral cavity: Mucous membranes jennifer st
--- OUTSIDE RECORDS SUMMARY | 2024-09-12 04:00 | XMS_ITS ---
Author Organization [facility] Address [address] [place] [id number] Care Team Providers Care Wheel Borer Name Role Phone Santino Pisano Primary Care Provider Richardson Kuhn [phone] Allergies Allergen (clinical drug ingredient) Drug/Non Drug Allergy documented on EMR Reaction Allergy Type Onset Date Status Levaquin neuropathy Drug Allergy Active metoprolol Metoprolol headache Drug Allergy Activ e vancomycin Vancomycin Unknown Drug Allergy Activ e Results Component Value Reference Range Notes Glycohemoglobin A1c (in hous e) Reviewed date:09/13/2024 10:29:03 PM Interpretation:7.6% Performing Lab: Notes/Report: 7.6% glycohemoglobin 7.6% 5 - 6.5 % P-Comprehensive Metabolic Pa guicho (CMP) Reviewed date:09/13/2024 10:37:03 PM Interpretation: Performing Lab: Notes/Report: Test performed by [facility] [address] [place] [address] , [address], [place] [address] Ketan Zamora MD, Mobile Home Installer CLIA: [id number] Sodium 139 135-145 mmol/L Potassium 4.0 3.5-5.3 mmol/L Chloride 102 97-108 mmol/L CO2 26 22-32 mmol/L Glucose 161 65-99 mg/dL BUN 14 8-23 mg/dL Creatinine 0.89 0.70-1.30 mg/dL Calcium 9.9 8.6-10.4 mg/dL eGFR by Creatinine 91 >59 mL/min/1.73m2 Protein 7.3 6.0-8.3 g/dL Albumin 4.4 3.5-5.3 g/dL Alkaline Phosphatase 35 40-129 IU/L ALT (SGPT) 27 <5-55 IU/L AST (SGOT) 28 <5-46 IU/L Bilirubin, Total 0.7 <0.2-1.2 mg/dL A/G Ratio 1.5 1.1-2.5 P-Lipid Panel Reviewed date:09/13/2024 10:37:03 PM Interpretation: Performing Lab: Notes/Report: Test performed by [facility], [facility] [address] [place] [address] , [address], [place] [address] Ketan Zamora MD, Mobile Home Installer CLIA: [id number] Cholesterol 107 <200 mg/dL Triglycerides 178 <150 mg/dL HDL Cholesterol 29 >39 mg/dL Cholesterol / HDL Ratio 3.69 0.00-4.99 Ratio Non-HDL Cholesterol 78 <130 mg/dL LDL Cholesterol (Calculation) 42 <130 mg/dL LDL Cholesterol Levels* Less than 100 mg/dL Optimal 100 to 129 mg/dL Near Optimal/ Above Optimal 130 to 159 mg/dL Borderline High 160 to 189 mg/dL High 190 mg/dL and above Very High * Categories as recommended by the 2004 ATPIII guidelines LDL/HDL Ratio 1.5 <3.3 Ratio LDL Cholesterol Patient History Test Date: 09/03/2023 LDL Results: 31 Units: mg/dL % Change: -16% Test Date: 03/07/2024 LDL Results: 37 Units: mg/dL % Change: +19% Test Date: 09/12/2024 LDL Results: 42 Units: mg/dL % Change: +13% P-Microalbumin/Creatinine, R andom Urine Sample Reviewed date:09/13/2024 10:37:03 PM Interpretation: Performing Lab: Notes/Report: Test performed by [facility], [address] , [facility], [place] [address] Ketan Zamora MD, Mobile Home Installer CLIA: [id number] Albumin/Creatinine Ratio, Urine 6 0-30 ug/m g Microalbumin, Urine, Random 0.4 Creatinine, Urine 61.7 REASON FOR VISIT 6 months, Needs labs Medications Medication SIG (Take, Route, Frequency, Duration) Notes Start Date End Date Status Rosuvastatin Calcium 40 MG 1/2 tab(s) orally once a day per Dr Lovett 06/04/2020 Active Carvedilol 6.25 MG 1 tablet with food Orally Twice a day Active Cozaar 100 MG 1 tab(s) orally once a day Active Chlorthalidone 25 MG 1 tab(s) orally onc e a day Active amLODIPine Besylate 5 MG 1 tab(s) orally once a day Active Magnesium Oxide 400 MG 1 tab(s) orally o nce a day Active Symbicort 160-4.5 MCG/ACT INHALE 2 PUFFS BY MOUTH 2 TIMES A DAY (RINSE MOUTH AFTER USE) Active DIABETIC SHOES DIRECTED DIRECTED 09/03/2022 Active Dicyclomine HCl 10 MG 1 cap(s) orally Tw o times a day 07/28/2022 Active Betamethasone Dipropionate Aug 0.05 % 1 adela applied topically 2 times a day 01/29/2022 Active Pregabalin 75 MG 1 cap(s) orally once daily Active Fluticasone Propionate 50 MCG/ACT 2 spray(s) intranasally once a day 07/05/2015 Active Astepro 205.5 MCG/SPRAY 1 spray(s) intranasally 2-4 times a day; Duration: 30 day(s) 11/22/2019 Active Meclizine HCl 12.5 MG 1 tab(s) orally 3 times a day prn 06/28/2019 Active HYDROcodone-Acetaminoph en 7.5-325 MG 1 tab(s) orally bid Active Farxiga 10 MG TAKE 1 TABLET BY MOUTH ONCE DAILY; Duration: 30 Active metFORMIN HCl ER 500 MG 2 tab(s) Orally Two times a day; Duration: 30 days Active Aspirin 81 81MG DIRECTED QD Active Potassium Chloride ER 10 MEQ TAKE 1 CAPSULE BY MOUTH ONCE DAILY; Duration: 30 Active tiZANidine HCl 4 MG TAKE 1 TABLET BY MOUTH AT BEDTIME; Duration: 30 Active Warfarin Sodium 5 MG TAKE 2 TABLETS BY MOUTH ONCE DAILY; Duration: 30 Active Fenofibrate Micronized 134 MG TAKE 1 CAPSULE BY MOUTH ONCE DAILY; Duration: 30 Active Tamsulosin HCl 0.4 MG TAKE 1 CAPSULE BY MOUTH ONCE DAILY; Duration: 30 days Active Azelastine HCl 137 MCG/SPRAY SHAKE WELL AND INHALE 2 SPRAY(S) INTRANASALLY 2 TIMES A DAY DIRECTED; Duration: 30 Active Glimepiride 2 MG TAKE 1 TABLET BY MOUTH TWICE DAILY; Duration: 30 Active Montelukast Sodium 10 MG 1 tablet Orally Once a day Active Albuterol Sulfate HFA 108 (90 Base) MCG/ACT 2 puff(s) inhaled every 6 hours; Duration: 30 day(s) Active CPAP Supplies - as directed as directed 09/03/2023 Active Vital Signs Blood pressure systolic 122 mm Hg 09/13/19 25 Blood pressure diastolic 68 mm Hg 025 Heart Rate 74 /min 09/12/2024 Height 74 in 09/12/2024 Weight 239.8 lbs 09/12/2024 BMI 30.79 kg/m2 09/12/2024 Encounters Encounter Location Date Provider Diagnosis [place] [address] [facility] [address] [facility] [address] [place], [place] [id number] 09/12/2024 Richardson Kuhn Hyperlipidemia associated with type 2 diabetes mellitus E11.69 ; Diabetes mellitus with hyperglycemia E11.65 ; A-fib I48.91 ; Status cardiac pacemaker Z95.0 and BMI 30.0-30.9,adult Z68.30 Assessments Encounter Date Diagnosis (ICD Code) Assessment Notes Treatment Notes Treatment Clinical Notes Section Notes 09/12/2024 Hyperlipidemia associated with type 2 diabetes mellitus (ICD-10 - E11.69) 09/12/2024 Diabetes mellitus with hyperglycemia (ICD-10 - E11.65) 09/12/2024 A-fib (ICD-10 - I48.91) 09/12/2024 Status cardiac pacemaker (ICD-10 - Z95.0) 09/12/2024 BMI 30.0-30.9,adult (ICD-10 - Z68.30) Plan Of Treatment Next Appt Details Follow Up: 6 Months, Reason: Provider Name:Richardson Dixon, 09/13/2025 09:00:00 AM, [address] [facility] [facility], [address], [place], [id number], Progress Notes * RAFAELA SKINNERDOB:1950 (74 yo M)Acc No.[id number]:09/12/2024 Progress Notes Patient: Bro CASIMIRORAFAELA MIYA Provider: Richardson Kuhn M.D. :1950 A ge:73 Y S ex:Male Date:09/12/2024 Address:[facility] [id number] Pcp:Santino Pisano Subjective: * Chief Complaints: * 1 . 6 months. 2. Needs labs. * HPI: C ardiology: The patient is here today for a check up. Pt states he is doing well and denies any new concerns. Pt states he is fasting. Pt states his last INR was on Wednesday at [facility] and it was 2.9. Denies : Chest Pain. D enies : Short of Breath. D enies : Dizziness. D enies : Palpitations. * ROS: D ERMATOLOGY: no R isai. n o H rachell. G ASTROENTEROLOGY: no N ausea. n o V omiting. n o D iarrhea.? U ROLOGY: no D ifficulty urinating. n [...] Cholecystectomy 03/2012, Cardiac Pacemaker Changed 12/08/2012, Pacemaker Generator Replacement 03/23/2022, Colonoscopy/ Allran/ tubular adenoma/ 2 yr f/u 06/18/23. * Hospitalization/Major Diagno stic Procedure: V ertigo- [facility] ER 10/2016, Elevated Blood Sugar- [facility] ER 05/2020. * Family History: F [...] - as directed as directed , Taking Albuterol Sulfate HFA 108 (90 Base) MCG/ACT Aerosol Solution 2 puff(s) inhaled every 6 hours , Taking Montelukast Sodium 10 MG Tablet 1 tablet Orally Once a day , Taking Azelastine HCl 137 [...] 1 TABLET BY MOUTH TWICE DAILY , Taking Potassium Chloride ER 10 MEQ Capsule Extended Release TAKE 1 CAPSULE BY MOUTH ONCE DAILY , Taking tiZANidine HCl 4 MG Tablet TAKE 1 TABLET BY MOUTH AT BEDTIME , Taking metFORMIN HCl ER 500 MG Tablet Extended Release 24 Hour 2 tab(s) Orally Two times a day , Taking Farxiga 10 MG Tablet TAKE 1 TABLET BY MOUTH ONCE DAILY , Medication List reviewed and reconciled with the patient * Allergies: V ancomycin, Levaquin: neuropathy - Side Effects, Metoprolol: headache - Side Effects. Objective: * Vitals: W t: 239.8, Temp: 97.6, BP: 122/68, HR: 74, O2 Sat: 98% on RA, Nurse: ERIS, Ht: 74, BMI:30.79. * Examination: C ardiology: General Appearance: N AD, affect good. . H EENT: sclera and conjunctiva clear, PERRLA, TM's normal, translucent. C arotid upstroke: n ormal,no bruits. . H eart sounds: r egular rhythm, Gr 1/6 systolic murmur. M urmur, click , gallop: n one. L ungs: c lear, no rales or wheezes. A bdomen: p ositive BS, soft, nontender. E xtremities: n o leg edema. Decreased distal pulses in feet. Decreased sensation on soles of feet. Assessment: * Assessment: 1. H yperlipidemia associated with type 2 diabetes mellitus - E11.69 (Primary) 2 . D iabetes mellitus with hyperglycemia - E11.65 3 . A -fib - I48.91 ? 4 . S tatus cardiac pacemaker - Z95.0 5 . B MD 30.0-30.9,adult - Z68.30 Plan: * Treatment: Value Reference Range C holesterol / HDL Ratio 3.69 0.00-4.99 - Ratio * C holesterol 107 <200 - mg/dL * H DL Cholesterol 29 L >39 - mg/dL * L DL Cholesterol (Calculation) 42 <130 - mg/d L * L DL/HDL Ratio 1.5 <3.3 - Ratio * N on-HDL Cholesterol 78 <130 - mg/dL * T riglycerides 178 H <150 - mg/dL * Richardson Kuhn 09/13/2024 10 :36:43 PM >See phone encounter 2.?Diabetes mellitus with hyperglycemia?LAB: P-Comprehensive Metabolic Panel (CMP) (Collection Date & Time - 09/12/2024 08:18 AM)* Value Reference Range A /G Ratio 1.5 1.1-2.5 - * A lbumin 4.4 3.5-5.3 - g/dL * A lkaline Phosphatase 35 L 40-129 - IU/L * A LT (SGPT) 27 <5-55 - IU/L * A ST (SGOT) 28 <5-46 - IU/L * B ilirubin, Total 0.7 <0.2-1.2 - mg/dL * B UN 14 8-23 - mg/dL * C alcium 9.9 8.6-10.4 - mg/dL * C hloride 102 97-108 - mmol/L * C O2 26 22-32 - mmol/L * C reatinine 0.89 0.70-1.30 - mg/dL * G lucose 161 H 65-99 - mg/dL * P otassium 4.0 3.5-5.3 - mmol/L * S odium 139 135-145 - mmol/L * P rotein 7.3 6.0-8.3 - g/dL * e GFR by Creatinine 91 >59 - mL/min/1.73m2 * Richardson Kuhn 09/13/2024 10 :36:43 PM >See phone encounter ?LAB: P-Microalbumin/Creatinine, Random Urine Sample (Collection Date & Time - 09/12/2024 08:18 AM)* Value Reference Range A lbumin/Creatinine Ratio, Urine 6 0-30 - ug /mg * C reatinine, Urine 61.7 - mg/dL * M icroalbumin, Urine, Random 0.4 - mg/dL * Richardson Kuhn 09/13/2024 10 :36:43 PM >See phone encounter ?LAB: Glycohemoglobin A1c (in house) (Collection Date & Time - 09/12/2024)? 7.6%* Value Reference Range g lycohemoglobin 7.6% 5 - 6.5 % * Ivelisse Ruiz 09/12/2024 11:35:1 5 AM >Richardson Kuhn 09/13/2024 10:28:57 PM > See phone encounter * Procedure Codes: G 2211 Complex e/[place], [address] GLYCATED HEMOGLOBIN TEST, Modifiers: QW , 3051F HG A1C>EQUAL 7.0%<8.0%, G8752 MOST RECENT SYSTOLIC BP < 140MM HG, G8754 MOST RECENT DIASTOLIC BP < 90MM HG * Follow Up: 6 Months * Images: Billing Information: * Visit Code: 11001 Office Visit, Est Pt., Level 4. * Procedure Codes: G2211 Complex e/[place]. [address] GLYCATED HEMOGLOBIN TEST. Modifiers: QW 3051F HG A1C>EQUAL 7.0%<8.0%. G8752 MOST RECENT SYSTOLIC BP < 140MM HG. G8754 MOST RECENT DIASTOLIC BP < 90MM HG. * Electronic signature of Richardson Kuhn MD on 04/27/2025 at 09:23 AM EST Sign off status: Pending * Provider: Richardson Kuhn M.D. Date: 0 09/12/2024 Generated for Garry andrews/Jacob/Tanaitting on: 1 06/28/2024 09:23 AM EST History and Physical Notes * HPI (History of Present Illness) Category Sub-Category Detail Notes Category Not es Cardiology Short of Breath Chest Pain Palpitations Dizziness Examination Category Sub-Category Detail Notes Category Not es Cardiology Lungs: clear, no rales or wheezes HEENT: sclera and conjuncti va clear, PERRLA, TM's normal, translucent Heart sounds: regular rhythm, Gr 1 /6 systolic murmur Abdomen: positive BS, soft, n ontender Carotid upstroke: normal,no bruits. Extremities: no leg edema. Decrea sed distal pulses in feet. Decreased sensation on soles of feet Murmur, click , gallop: none General Appearance: NAD, affect good.
--- OUTSIDE RECORDS SUMMARY | 2024-12-28 05:00 | XMS_ITS ---
Author Organization [facility] Address [address] [facility] [address] [place] [id number] Care Team Providers Care Lock And Dam Operator Name Role Phone Santino Pisano Primary Care Provider [phone] Richardson Kuhn [phone] Allergies Allergen (clinical drug ingredient) Drug/Non Drug Allergy documented on EMR Reaction Allergy Type Onset Date Status Levaquin neuropathy Drug Allergy Active metoprolol Metoprolol headache Drug Allergy Activ e vancomycin Vancomycin Unknown Drug Allergy Activ e Results Component Value Reference Range Notes Glycohemoglobin A1c (in hous e) Reviewed date:12/31/2024 10:50:29 PM Interpretation:7.3% Performing Lab: Notes/Report: 7.3% glycohemoglobin 7.3% 5 - 6.5 % REASON FOR VISIT fasting Medications Medication SIG (Take, Route, Frequency, Duration) Notes Start Date End Date Status Albuterol Sulfate HFA 108 (90 Base) MCG/ACT 2 puff(s) inhaled every 6 hours; Duration: 30 day(s) Active Azelastine HCl 137 MCG/SPRAY SHAKE WELL AND INHALE 2 SPRAY(S) INTRANASALLY 2 TIMES A DAY DIRECTED; Duration: 30 Active Cozaar 100 MG 1 tab(s) orally once a day Active Rosuvastatin Calcium 40 MG 1/2 tab(s) orally once a day per Dr Lovett 06/04/2020 Active CPAP Supplies - as directed as directed diagnosis codes: G47.33, J44.9 09/03/2023 Active amLODIPine Besylate 5 MG 1 tab(s) orally once a day Active Chlorthalidone 25 MG 1 tab(s) orally once a day Active DIABETIC SHOES DIRECTED DIRECTED 09/03/2022 Active Carvedilol 6.25 MG 1 tablet with food Orally Twice a day Active Dicyclomine HCl 10 MG 1 cap(s) orally Two times a day 07/28/2022 Active Pregabalin 75 MG 1 cap(s) orally once daily Active Symbicort 160-4.5 MCG/ACT INHALE 2 PUFFS BY MOUTH 2 TIMES A DAY (RINSE MOUTH AFTER USE) Active Fluticasone Propionate 50 MCG/ACT 2 spray(s) intranasally once a day 07/05/2015 Active Magnesium Oxide 400 MG 1 tab(s) orally once a day Active Betamethasone Dipropionate Aug 0.05 % 1 adela applied topically 2 times a day 01/29/2022 Not-Taking Astepro 205.5 MCG/SPRAY 1 spray(s) intranasally 2-4 times a day; Duration: 30 day(s) 11/22/2019 Active HYDROcodone-Acetamino phen 7.5-325 MG 1 tab(s) orally bid Active Meclizine HCl 12.5 MG 1 tab(s) orally 3 times a day prn 06/28/2019 Active Aspirin 81 81MG DIRECTED QD Active Ozempic (0.25 or 0.5 MG/DOSE) 2 MG/3ML 0.25 mg Subcutaneous once a week 12/28/2024 Active Fenofibrate Micronized 134 MG 1 capsule with a meal Orally Once a day; Duration: 30 days Active Potassium Chloride ER 10 MEQ 1 capsule with food Orally daily; Duration: 30 days Active Farxiga 10 MG TAKE 1 TABLET BY MOUTH ONCE DAILY Active metFORMIN HCl ER 500 MG 2 tablets orally twice a day Active Glimepiride 2 MG 1 tab(s) Orally Two times a day Active Tamsulosin HCl 0.4 MG 1 capsule Orally Once a day; Duration: 30 days Active Warfarin Sodium 5 MG 2 tab(s) Orally Once a day; Duration: 90 days Active tiZANidine HCl 4 MG 1 tablet at bedtime as needed Orally Once a day; Duration: 90 days Active Montelukast Sodium 10 MG 1 tablet Orally Once a day; Duration: 90 days Active Vital Signs Blood pressure systolic 122 mm Hg 12/29/19 25 Blood pressure diastolic 60 mm Hg 025 Heart Rate 82 /min 12/28/2024 Height 74 in 12/28/2024 Weight 241.2 lbs 12/28/2024 BMI 30.96 kg/m2 12/28/2024 Encounters Encounter Location Date Provider Diagnosis [place] [address] [facility] [address] [facility] [address] [place] [id number] 12/28/2024 Richardson Kuhn Diabetes mellitus wi th hyperglycemia E11.65 ; Type 2 diabetes mellitus with other circulatory complications E11.59 and GREG (obstructive sleep apnea) G47.33 Assessments Encounter Date Diagnosis (ICD Code) Assessment Notes Treatment Notes Treatment Clinical Notes Section Notes 12/28/2024 Diabetes mellitus with hyperglycemia (ICD-10 - E11.65) A1c is improved but not at goal. Will add Ozempic and titrate as tolerated. As blood sugars improved, should be able to wean some of his oral medication starting with glimepiride 12/28/2024 Type 2 diabetes mellitus with other circulatory complications (ICD-10 - E11.59) 12/28/2024 GREG (obstructive sleep apnea) (ICD-10 - G47.33) Plan Of Treatment Medication Medication Name Sig Start Date Stop Date Notes Ozempic (0.25 or 0.5 MG/DOSE ) 2 MG/3ML 0.25 mg Subcutaneous once a week 12/28/2024 Farxiga 10 MG TAKE 1 TABLET BY ALEJANDRO ONCE DAILY metFORMIN HCl ER 500 MG 2 tablets orally twice a day Glimepiride 2 MG 1 tab(s) Orally Two times a day Treatment Notes Assessment Notes Diabetes mellitus with hyperglycemia A1c is improved but not at goal. Will add Ozempic and titrate as tolerated. As blood sugars improved, should be able to wean some of his oral medication starting with glimepiride Next Appt Details Follow Up: 3 Months, Reason: Provider Name:Richardson Dixon, 09/13/2025 09:00:00 AM, [address] [facility] [address] [facility], [address], [place], [phone], Progress Notes * RAFAELA SKINNERDOB:1950 (74 yo M)Acc No.[id number]:12/28/2024 Progress Notes Patient: RAFAELA BRITT Provider: Richardson Kuhn M.D. :1950 A ge:74 Y S ex:Male Date:12/28/2024 Address:[place], [id number] Pcp:Santino Pisano Subjective: * Chief Complaints: * 1 . Fasting. * HPI: E ndocrinology: Rafaela returns for follow-up on his diabetes and elevated A1c at his last visit. He has not been successful with weight loss and reports his blood sugars are still frequently over 200. He has noticed some blurry vision but also has a history of cataracts. * ROS: D ERMATOLOGY: no R isai. [...] Diagno stic Procedure: V ertigo- [facility] ER 10/2016, Elevated Blood Sugar- [facility] ER 05/2020. * Family History: F ather: [...] tab(s) orally once a day , Taking Dicyclomine HCl 10 [...] Notes to Pharmacist: per Dr Lovett, Taking Albuterol Sulfate HFA 108 (90 Base) MCG/ACT Aerosol Solution 2 puff(s) inhaled every 6 hours , Taking Azelastine HCl 137 MCG/SPRAY Solution SHAKE WELL AND INHALE 2 SPRAY(S) INTRANASALLY 2 TIMES A DAY DIRECTED , Taking CPAP Supplies - - as directed as directed , Notes to Pharmacist: diagnosis codes: G47.33, J44.9, Taking Montelukast Sodium 10 MG Tablet 1 tablet Orally Once a day , Taking Glimepiride 2 MG Tablet 1 tab(s) Orally Two times a day , Taking Warfarin Sodium 5 MG Tablet 2 tab(s) Orally Once a day , Taking tiZANidine HCl 4 MG Tablet 1 tablet at bedtime as needed Orally Once a day , Taking Farxiga 10 MG Tablet TAKE 1 TABLET BY MOUTH ONCE DAILY , Taking Tamsulosin HCl 0.4 MG Capsule 1 capsule Orally Once a day , Taking Potassium Chloride ER 10 MEQ Capsule Extended Release 1 capsule with food Orally daily , Taking metFORMIN HCl ER 500 MG Tablet Extended Release 24 Hour 2 tablets orally twice a day , Taking Fenofibrate Micronized 134 MG Capsule 1 capsule with a meal Orally Once a day , Not-Taking Betamethasone Dipropionate Aug 0.05 % Cream 1 adela applied topically 2 times a day , Medication List reviewed and reconciled with the patient * Allergies: V ancomycin, Levaquin: neuropathy - Side Effects, Metoprolol: headache - Side Effects. Objective: * Vitals: W t: 241.2, Temp: 97.9, BP: 122/60, HR: 82, O2 Sat: 98% on RA, Nurse: sahara, Ht: 74, BMI:30.96. * Examination: G eneral Examination: General Appearance: N AD. H eart: R SR. L ungs:?clear to auscultation. E xtremities: n o leg edema. Assessment: * Assessment: 1. D iabetes mellitus with hyperglycemia - E11.65 (Primary) 2 . T ype 2 diabetes mellitus with other circulatory complications - E11.59 3 . O SA (obstructive sleep apnea) - G47.33 Plan: * Treatment: * Labs: * L ab: Glycohemoglobin A1c (in house) (Collection Date & Time - 12/28/2024) 7 .3% Value Reference Range g lycohemoglobin 7.3% 5 - 6.5 % * Dilcia Proctor 12/28/2024 10:2 0:18 AM EDT > Provider reviewed results while patient in office.Richardson Kuhn 12/31/2024 10:50:08 PM EDT > results reviewed with patient while in the office * Procedure Codes: G 2211 Complex e/[place], [address] CAPILLARY BLOOD DRAW, 53935 GLYCATED HEMOGLOBIN TEST, Modifiers: QW , 3044F HG A1C LEVEL LT 7.0%, 1036F TOBACCO NON-USER, G8783 BP SCR PRFRM RCMDD DEFIND SCR INTVL, G8752 MOST RECENT SYSTOLIC BP < 140MM HG, G8754 MOST RECENT DIASTOLIC BP < 90MM HG * Follow Up: 3 Months * Images: Billing Information: * Visit Code: 53545 Office Visit, Est Pt., Level 3. * Procedure Codes: G2211 Complex e/[place]. [address] CAPILLARY BLOOD DRAW. 81527 GLYCATED HEMOGLOBIN TEST. Modifiers: QW 3044F HG A1C LEVEL LT 7.0%. 1036F TOBACCO NON-USER. G8783 BP SCR PRFRM RCMDD DEFIND SCR INTVL. G8752 MOST RECENT SYSTOLIC BP < 140MM HG. G8754 MOST RECENT DIASTOLIC BP < 90MM HG. * Electronic signature of Richardson Kuhn MD on 04/27/2025 at 09:23 AM EST Sign off status: Pending * Provider: Richardson Kuhn M.D. Date: 0 12/28/2024 Generated for Garry andrews/Jacob/Tanaitting on: 1 06/28/2024 09:23 AM EST History and Physical Notes * Examination Category Sub-Category Detail Notes Category Not es General Examination Heart: RSR Lungs: clear to auscultatio n Extremities: no leg edema General Appearance: NAD
--- OUTSIDE RECORDS SUMMARY | 2025-02-05 09:10 | XMS_ITS ---
[facility] Organization [facility] Address [address] [facility] [address] [place] [id number] Care Team Providers Care Senior Telecommunications Engineer Name Role Phone Santino Pisano Primary Care Provider Richardson Kuhn [phone] REASON FOR VISIT flu shot Medications Medication SIG (Take, Route, Frequency, Duration) Notes Start Date End Date Status metFORMIN HCl ER 500 MG 2 tablets orally twice a day; Duration: 90 days Active Ozempic (0.25 or 0.5 MG/DOSE) 2 MG/3ML 0.25 mg Subcutaneous once a week; Duration: 28 days 12/28/2024 Active Glimepiride 2 MG 1 tab(s) Orally Two times a day Active Farxiga 10 MG 1 tablet Orally Once a day; Duration: 90 days Active tiZANidine HCl 4 MG 1 tablet at bedtime as needed Orally Once a day; Duration: 90 days Active Tamsulosin HCl 0.4 MG 1 capsule Orally Once a day; Duration: 30 days Active Warfarin Sodium 5 MG 2 tab(s) Orally Onc e a day; Duration: 90 days Active Potassium Chloride ER 10 MEQ 1 capsule with food Orally daily; Duration: 30 days Active Fenofibrate Micronized 134 MG 1 capsule with a meal Orally Once a day; Duration: 30 days Active CPAP Supplies - as directed as directed diagnosis codes: G47.33, J44.9 09/03/2023 Active Montelukast Sodium 10 MG 1 tablet Orally Once a day; Duration: 90 days Active Albuterol Sulfate HFA 108 (90 Base) MCG/ACT 2 puff(s) inhaled every 6 hours; Duration: 30 day(s) Active Azelastine HCl 137 MCG/SPRAY SHAKE WELL AND INHALE 2 SPRAY(S) INTRANASALLY 2 TIMES A DAY DIRECTED; Duration: 30 Active Rosuvastatin Calcium 40 MG 1/2 tab(s) orally once a day per Dr Lovett 06/04/2020 Active DIABETIC SHOES DIRECTED DIRECTED 09/03/2022 Active Carvedilol 6.25 MG 1 tablet with food Orally Twice a day Active Cozaar 100 MG 1 tab(s) orally once a day Active amLODIPine Besylate 5 MG 1 tab(s) orally once a day Active Chlorthalidone 25 MG 1 tab(s) orally onc e a day Active Magnesium Oxide 400 MG 1 tab(s) orally o nce a day Active Dicyclomine HCl 10 MG [...] a day; Duration: 30 day(s) 11/22/2019 Active HYDROcodone-Acetaminop hen 7.5-325 MG 1 tab(s) orally bid Active Meclizine HCl 12.5 MG 1 tab(s) orally 3 times a day prn 06/28/2019 Active Aspirin 81 81MG DIRECTED QD Active Immunizations Vaccine Route Administration Date Status Comme nts Fluzone High Dose (65yr and older) IM Intramuscular 02/05/2025 Administered Encounters Encounter Location Date Provider Diagnosis [facility] [address] [place], [place] [id number] 02/05/2025 Richardson Kuhn Encounter for immunization Z23 Assessments Encounter Date Diagnosis (ICD Code) Assessment Notes Treatment Notes Treatment Clinical Notes Section Notes 02/05/2025 Encounter for immunization (ICD-10 - Z23) Plan Of Treatment Next Appt Details Provider Name:Richardson Dixon, 09/13/2025 09:00:00 AM, [address], [address], [place], [place], [phone], Progress Notes * RAFAELA SKINNERDaljitDOB:1950 (74 yo M)Acc No.[id number]:02/05/2025 Patient: RAFAELA BRITT Provider: Richardson Kuhn M.D. :1950 A ge:74 Y S ex:Male Date:02/05/2025 Address:[facility] [place], [id number] Pcp:Santino Pisano Subjective: * Chief Complaints: * 1 . Flu shot. * Medical History: * Medications: T aking Aspirin 81 81MG [...] tablet Orally Once a day , Taking Warfarin Sodium 5 MG Tablet 2 tab(s) Orally Once a day , Taking tiZANidine HCl 4 MG Tablet 1 tablet at bedtime as needed Orally Once a day , Taking Tamsulosin HCl 0.4 MG Capsule 1 capsule Orally Once a day , Taking Potassium Chloride ER 10 MEQ Capsule Extended Release 1 capsule with food Orally daily , Taking Fenofibrate Micronized 134 MG Capsule 1 capsule with a meal Orally Once a day , Taking Glimepiride 2 MG Tablet 1 tab(s) Orally Two times a day , Taking Farxiga 10 MG Tablet 1 tablet Orally Once a day , Taking metFORMIN HCl ER 500 MG Tablet Extended Release 24 Hour 2 tablets orally twice a day , Taking Ozempic (0.25 or 0.5 MG/DOSE) 2 MG/3ML Solution Pen-injector 0.25 mg Subcutaneous once a week , Discontinued Betamethasone Dipropionate Aug 0.05 % Cream 1 adela applied topically 2 times a day , Medication List reviewed and reconciled with the patient Objective: * Vitals: Assessment: * Assessment: 1. E ncounter for immunization - Z23 (Primary) Plan: * Treatment: * Immunizations: Fluzone High Dose (65yr and older) : 0.5 mL (Route: Intramuscular) given by Ivelisse Ruiz on Left Deltoid (Encounter for immunization) * Images: Billing Information: * Visit Code: * Procedure Codes: * Electronic signature of Richardson Kuhn MD on 04/27/2025 at 09:23 AM EST Sign off status: Pending * Provider: Richardson Kuhn M.D. Date: 0 02/05/2025 Generated for Garry andrews/Jacob/Liana on: 06/28/2024 09:23 AM EST
--- OUTSIDE RECORDS SUMMARY | 2025-03-15 04:00 | XMS_ITS ---
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 Name Role Phone Santino Pisano Primary Care Provider Richardson Kuhn [phone] Allergies Allergen (clinical drug ingredient) Drug/Non Drug Allergy documented on EMR Reaction Allergy Type Onset Date Status Levaquin neuropathy Drug Allergy Active metoprolol Metoprolol headache Drug Allergy Activ e vancomycin Vancomycin Unknown Drug Allergy Activ e Results Component Value Reference Range Notes Glycohemoglobin A1c (in hous e) Reviewed date:03/20/2025 08:30:32 AM Interpretation:6,6% Performing Lab: Notes/Report: 6,6% glycohemoglobin 6.6% 5 - 6.5 % P-Comprehensive Metabolic Pa guicho (CMP) Reviewed date:03/20/2025 08:30:32 AM Interpretation:FBS 129 Performing Lab: Notes/Report: Test performed by [facility] , [address], [place] [address] Ketan Zamora MD, Inse[employer]er CLIA: [id number] Sodium 140 135-145 mmol/L Potassium 4.0 3.5-5.3 mmol/L Chloride 105 97-108 mmol/L CO2 23 20-32 mmol/L Glucose 129 65-99 mg/dL BUN 22 8-23 mg/dL Creatinine 0.98 0.70-1.30 mg/dL Calcium 10.2 8.6-10.4 mg/dL eGFR by Creatinine 82 >59 mL/min/1.73m2 Protein 7.1 6.0-8.3 g/dL Albumin 4.1 3.5-5.3 g/dL Alkaline Phosphatase 27 40-129 IU/L ALT (SGPT) 30 <5-55 IU/L AST (SGOT) 25 <5-46 IU/L Bilirubin, Total 0.6 <0.2-1.2 mg/dL A/G Ratio 1.4 1.1-2.5 P-Lipid Panel Reviewed date:03/20/2025 08:30:32 AM Interpretation:LDL 29 Performing Lab: Notes/Report: Test performed by [facility] [address] [place] [address] , [facility] [address], [place] [address] Ketan Zamora MD, Inseam Leveler CLIA: [id number] Lipid Panel Footnote See Below *Based on optimal reference values. Please refer to the DOS for additional information regarding diagnostic lipid reference ranges, patient management based on the recently updated lipid guidelines ([employer] [employer] Task Force on Clinical Practice Guidelines (2018), and pediatric diagnostic lipid reference values (<18 years old). Total Cholesterol 92 <200 mg/dL Triglycerides 162 <150 mg/dL HDL Cholesterol 31 >40 mg/dL Total Cholesterol / HDL Ratio* 2.97 <4.99 Ratio Non-HDL Cholesterol 61 <130 mg/dL LDL Cholesterol (Calculation) 29 <100 mg/dL LDL / HDL Ratio* 0.92 <2.49 Ratio LDL Cholesterol Patient History Test Date: 03/07/2024 LDL Results: 37 Units: mg/dL % Change: +19% Test Date: 09/12/2024 LDL Results: 42 Units: mg/dL % Change: +13% Test Date: 03/15/2025 LDL Results: 29 Units: mg/dL % Change: -30% P-PSA Reviewed date:03/20/2025 08:30:32 AM Interpretation:1.20 Performing Lab: Notes/Report: Test performed by [facility], [address] , [facility], [place] [address] Ketan Zamora MD, Inseam Leveler CLIA: [id number] PSA 1.20 <4.00 ng/mL Please note this is an ultrasensitive PSA assay with a lower limit of detection of 0.014 ng/mL. This test is performed by the [employer] ECLIA methodology. Values obtained with different assay methods or kits cannot be directly compared. REASON FOR VISIT 6 months fasting, Needs labs with PSA & colon cancer screening Medications Medication SIG (Take, Route, Frequency, Duration) Notes Start Date End Date Status Fluticasone Propionate 50 MCG/ACT 2 spray(s) intranasally [...] Tw o times a day 07/28/2022 Active metFORMIN HCl ER 500 MG 2 tablets orally twice a day Active Astepro 205.5 MCG/SPRAY 1 spray(s) intranasally 2-4 times a day; Duration: 30 day(s) 11/22/2019 Active Aspirin 81 81MG DIRECTED QD Active HYDROcodone-Acetaminop hen 7.5-325 MG 1 tab(s) orally bid Active Meclizine HCl 12.5 MG 1 tab(s) orally 3 times a day prn 06/28/2019 Active Tamsulosin HCl 0.4 MG 1 capsule Orally Once a day; Duration: 30 days Active Potassium Chloride ER 10 MEQ 1 capsule with food Orally daily; Duration: 30 days Active Ozempic (0.25 or 0.5 MG/DOSE) 2 MG/3ML 0.5 mg Subcutaneous once a week Active Glimepiride 2 MG 1 tab(s) Orally Two times a day Active Farxiga 10 MG TAKE 1 TABLET BY MOUTH ONCE DAILY Active Fenofibrate Micronized 134 MG 1 capsule with a meal Orally Once a day; Duration: 30 days Active Farxiga 10 MG 1 tablet Orally Once a day; Duration: 90 days Active metFORMIN HCl ER 500 MG 2 tablets orally twice a day; Duration: 90 days Active Warfarin Sodium 5 MG 2 tab(s) Orally Onc e a day; Duration: 90 days Active tiZANidine HCl 4 MG 1 tablet at bedtime as needed Orally Once a day; Duration: 90 days Active Rosuvastatin Calcium 40 MG 1/2 tab(s) orally once a day per Dr Lovett 06/04/2020 Active Albuterol Sulfate HFA 108 (90 Base) MCG/ACT 2 puff(s) inhaled every 6 hours; Duration: 30 day(s) Active Azelastine HCl 137 MCG/SPRAY SHAKE WELL AND INHALE 2 SPRAY(S) INTRANASALLY 2 TIMES A DAY DIRECTED; Duration: 30 Active CPAP Supplies - as directed as directed diagnosis codes: G47.33, J44.9 09/03/2023 Active Montelukast Sodium 10 MG 1 tablet Orally Once a day; Duration: 90 days Active Carvedilol 6.25 MG 1 tablet with food Orally Twice a day Active amLODIPine Besylate 5 MG 1 tab(s) orally once a day Active Chlorthalidone 25 MG 1 tab(s) orally onc e a day Active Cozaar 100 MG 1 tab(s) orally once a day Active DIABETIC SHOES DIRECTED DIRECTED 09/03/2022 Active Vital Signs Blood pressure systolic 128 mm Hg 03/15/20 25 Blood pressure diastolic 66 mm Hg 025 Heart Rate 88 /min 03/15/2025 Height 74 in 03/15/2025 Weight 235 lbs 03/15/2025 BMI 30.17 kg/m2 03/15/2025 Encounters Encounter Location Date Provider Diagnosis [facility] [address] [facility] [address] [facility] [address] [place] [id number] 03/15/2025 Richardson Kuhn Type 2 diabetes mellitus with other circulatory complications E11.59 ; Diabetes mellitus with hyperglycemia E11.65 ; GREG (obstructive sleep apnea) G47.33 and Prostate cancer screening Z12.5 Assessments Encounter Date Diagnosis (ICD Code) Assessment Notes Treatment Notes Treatment Clinical Notes Section Notes 03/15/2025 Type 2 diabetes mellitus with other circulatory complications (ICD-10 - E11.59) 03/15/2025 Diabetes mellitus with hyperglycemia (ICD-10 - E11.65) 03/15/2025 GREG (obstructive sleep apnea) (ICD-10 - G47.33) 03/15/2025 Prostate cancer screening (ICD-10 - Z12.5) Plan Of Treatment Medication Medication Name Sig Start Date Stop Date Notes metFORMIN HCl ER 500 MG 2 tablets orally twice a day Ozempic (0.25 or 0.5 MG/DOSE ) 2 MG/3ML 0.5 mg Subcutaneous once a week Glimepiride 2 MG 1 tab(s) Orally Two times a day Farxiga 10 MG TAKE 1 TABLET BY ALEJANDRO TH ONCE DAILY Next Appt Details Follow Up: 6 Months, Reason: Provider Name:Richardson Dixon, 09/13/2025 09:00:00 AM, [address] [facility] [address] [facility], [address], [place], [phone], Progress Notes * RAFAELA SKINNERDOB:1950 (74 yo M)Acc No.[id number]:03/15/2025 Progress Notes Patient: RAFAELA BRITT Provider: Richardson Kuhn M.D. :1950 A ge:74 Y S ex:Male Date:03/15/2025 Address:[place], [id number] Pcp:Santino Pisano Subjective: * Chief Complaints: * 1 . 6 months fasting. 2. Needs labs with PSA & colon cancer screening. * HPI: C ardiology: Pt here for a checkup on Hypertension and Diabetes. Pt states he does check his sugar at times at home. Pt is fasting. He is tolerating low dose of Ozempic and has lost some weight. * ROS: D ERMATOLOGY: no R isai. [...] needed Orally Once a day , Taking Fenofibrate Micronized 134 [...] 0.25 mg Subcutaneous once a week , Taking Tamsulosin HCl 0.4 MG Capsule 1 capsule Orally Once a day , Taking Potassium Chloride ER 10 MEQ Capsule Extended Release 1 capsule with food Orally daily , Medication List reviewed and reconciled with the patient * Allergies: V ancomycin, Levaquin: neuropathy - Side Effects, Metoprolol: headache - Side Effects. Objective: * Vitals: W t: 235, Temp: 97.8, BP: 128/66, HR: 88, Nurse: teena, Ht: 74, BMI:30.17. * Examination: C ardiology: General Appearance: N [...] nontender. E xtremities: n o leg edema. . Assessment: * Assessment: 1. D iabetes mellitus with hyperglycemia - E11.65 (Primary) 2 . T ype 2 diabetes mellitus with other circulatory complications - E11.59 3 . O SA (obstructive sleep apnea) - G47.33 4 . P rostate cancer screening - Z12.5 Plan: * Treatment: Value Reference Range C holesterol / HDL Ratio 2.97 <4.99 - Ratio * C holesterol 92 <200 - mg/dL * H DL Cholesterol 31 L >40 - mg/dL * L DL Cholesterol (Calculation) 29 <100 - mg/d L * L DL/HDL Ratio 0.92 <2.49 - Ratio * N on-HDL Cholesterol 61 <130 - mg/dL * T riglycerides 162 H <150 - mg/dL * L ipid Panel Footnote See Below - * Richardson Kuhn 03/20/2025 08:30:18 AM EST > See phone encounter 2.?Type 2 diabetes mellitus with other circulatory complications?LAB: P-Comprehensive Metabolic Panel (CMP) (Collection Date & Time - 03/15/2025 08:23 AM)?FBS 129* Value Reference Range A /G Ratio 1.4 1.1-2.5 - * A lbumin 4.1 3.5-5.3 - g/dL * A lkaline Phosphatase 27 L 40-129 - IU/L * A LT (SGPT) 30 <5-55 - IU/L * A ST (SGOT) 25 <5-46 - IU/L * B ilirubin, Total 0.6 <0.2-1.2 - mg/dL * B UN 22 8-23 - mg/dL * C alcium 10.2 8.6-10.4 - mg/dL * C hloride 105 97-108 - mmol/L * C O2 23 20-32 - mmol/L * C reatinine 0.98 0.70-1.30 - mg/dL * G lucose 129 H 65-99 - mg/dL * P otassium 4.0 3.5-5.3 - mmol/L * S odium 140 135-145 - mmol/L * P rotein 7.1 6.0-8.3 - g/dL * e GFR by Creatinine 82 >59 - mL/min/1.73m2 * Richardson Kuhn 03/20/2025 08:30:18 AM EST > See phone encounter ?LAB: Glycohemoglobin A1c (in house) (Collection Date & Time - 03/15/2025)? 6,6%* Value Reference Range g lycohemoglobin 6.6% 5 - 6.5 % * Swetha Loza 03/15/2025 1 1:51:39 AM EST > Richardson Kuhn 03/20/2025 08:30:18 AM EST > See phone encounter 3.?Prostate cancer screening?LAB: P-PSA (Collection Date & Time - 03/15/2025 08:23 AM)?1.20* Value Reference Range P SA 1.20 <4.00 - ng/mL * Richardson Kuhn 03/20/2025 08:30:18 AM EST > See phone encounter * Procedure Codes: G 2211 Complex e/[place], [address] GLYCATED HEMOGLOBIN TEST, Modifiers: QW , 3044F HG A1C LEVEL LT 7.0% * Follow Up: 6 Months * Images: Billing Information: * Visit Code: 88513 Office Visit, Est Pt., Level 4. * Procedure Codes: G2211 Complex e/[place]. [address] GLYCATED HEMOGLOBIN TEST. Modifiers: QW 3044F HG A1C LEVEL LT 7.0%. * Electronic signature of Richardson Kuhn MD on 04/27/2025 at 09:23 AM EST Sign off status: Pending * Provider: Richardson Kuhn M.D. Date: 05/15/2024 Generated for Calini ng/Fajohng/eTransmitting on: 06/28/2024 09:23 AM EST History and Physical Notes * Examination Category Sub-Category Detail Notes Category Not es Cardiology Lungs: clear, no rales or wheezes HEENT: sclera and conjuncti va clear, PERRLA, TM's normal, translucent Heart sounds: regular rhythm, Gr 1 /6 systolic murmur Abdomen: positive BS, soft, n ontender Carotid upstroke: normal,no bruits. Extremities: no leg edema. Murmur, click , gallop: none General Appearance: NAD, affect good.
--- OUTSIDE RECORDS SUMMARY | 2025-04-27 09:23 | XMS_ITS | Clinical Summary ---
Author Organization [facility] Address [address] [place] [address] Care Team Providers Care Director Style Name Role Phone Francisco Kuhn MD Primary Care Provider [phone]- [phone] Medications methocarbamol (Robaxin) 750 MG tablet Take [...] 1997 [facility]-Zoster Vaccines (1 of 2) 2002 [id number]-ELSPP-23 Vaccine (1 - 2024- season) 2025 [facility]-Influenza Vaccine (#1) 01/08/202503/06, 02/28/2021, 02/19/2020, Additional history exists [facility]-RSV Vaccine: 60+ Years or (1 - 1-dose 75+ series) 10/30/2027 [facility]-Hepatitis A Vaccines Aged Out 11/06/2018, 04/10 No longer eligible based on patient's age to complete this topic [facility]-Pneumococcal Vaccine: 50+ Years Completed 05/26/2019, 05/24/2018 [facility]-Obesity Intervention Completed 07/04/2024 HPV Vaccines (No Doses Required) Completed [facility]-HIB Vaccines Aged Out No longer e ligible based on patient's age to complete this topic [facility]-IPV Vaccines Aged Out No longer e ligible based on patient's age to complete this topic [facility]-Rotavirus Vaccines Aged Out No lo nger eligible based on patient's age to complete this topic [place] [address] [place] [id number] Care Teams Director Style Relationship Specialty Start Date End Date Francisco Kuhn MD [address] [facility] [place] [address] PCP - General 09/20/20
--- OUTSIDE RECORDS SUMMARY | 2025-04-27 09:23 | XMS_ITS | Encounter Summary ---
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 documented in this encounter Plan of Treatment Upcoming Encounters Date Type Department Care Team (Late st Contact Info) Description 07/03/2025 3:15 PM EST Office Visit [facility] [address] [phone] Khoi Reynoso MD [address] [place] [phone] documented as of this encounter Visit Diagnoses Not on filedocumented in this encounter Care Teams Form Setter [employer] Forms Relationship Specialty Start Date End Date Francisco Kuhn MD [address] [facility] [address] [place] [address] PCP - General 02/25/15 documented as of this encounter
--- OUTSIDE RECORDS SUMMARY | 2025-04-27 09:24 | XMS_ITS | Encounter Summary ---
[facility] Organization [facility] Address [address] [place] [address] Care Team Providers Care Cad Intern Name Role Phone Francisco Kuhn MD Primary Care Provider Encounter Details Date Type Department Care Team (Late st Contact Info) Description 05/24/2018 External CPT II LOCK [facility] - [employer] Social History Tobacco Use [...] Description 07/03/2025 3:15 PM EST Office Visit [facility] [address] [facility] [address] [place] [id number] Khoi Reynoso MD [address] [facility] [address] [place] [address] documented as of this encounter Visit Diagnoses Not on filedocumented in this encounter Care Teams Cad Intern Relationship Specialty Start Date End Date Francisco Kuhn MD [address] [facility] [address] [place] [address] PCP - General 02/25/15 documented as of this encounter
--- OUTSIDE RECORDS SUMMARY | 2025-04-27 09:24 | XMS_ITS | Patient Health Record ---
[facility] Organization [facility] Address [address] [place] [id number] Care Team Providers Care Stripper O[place] Name Role Phone Santino Pisano Primary Care Provider Richardson Kuhn [phone] Allergies Allergen (clinical drug ingredient) Drug/Non Drug [...] dose same next check 1 week with [facility] Coumadin Clinic Glycohemoglobin A1c (in hous e) Reviewed date:09/13/2024 10:29:03 PM Interpretation:7.6% Performing Lab: Notes/Report: 7.6% glycohemoglobin 7.6% 5 - 6.5 % P-Comprehensive Metabolic Pa guicho (CMP) Reviewed date:09/13/2024 10:37:03 PM Interpretation: Performing Lab: Notes/Report: Test performed by [employer] [employer] [address] [place] [address] , [address], [place] [address] Ketan Zamora MD, Geological Technical Officer CLIA: [id number] Sodium 139 135-145 mmol/L Potassium 4.0 3.5-5.3 [...] Interpretation: Performing Lab: Notes/Report: Test performed by [employer] [employer] [address] [place] [address] , [address] , [place] [address] Ketan Zamora MD, Geological Technical Officer CLIA: [id number] Cholesterol 107 <200 mg/dL Triglycerides 178 <150 [...] Interpretation: Performing Lab: Notes/Report: Test performed by [employer], [address] , [address], [place] [address] Ketan Zamora MD, Geological Technical Officer CLIA: [id number] Albumin/Creatinine Ratio, Urine 6 0-30 ug/mg Microalbumin, Urine, Random 0.4 Creatinine, Urine 61.7 Glycohemoglobin A1c (in hous e) Reviewed date:12/31/2024 10:50:29 PM Interpretation:7.3% Performing Lab: Notes/Report: 7.3% glycohemoglobin 7.3% 5 - 6.5 % Glycohemoglobin A1c (in hous e) Reviewed date:03/20/2025 08:30:32 AM Interpretation:6,6% Performing Lab: Notes/Report: 6,6% glycohemoglobin 6.6% 5 - 6.5 % P-Comprehensive Metabolic Pa guicho (CMP) Reviewed date:03/20/2025 08:30:32 AM Interpretation:FBS 129 Performing Lab: Notes/Report: Test performed by [facility] [address] [place] [address] [address] C, [place] [address] Ketan Zamora MD, Geological Technical Officer CLIA: [id number] Sodium 140 135-145 mmol/L Potassium 4.0 3.5-5.3 [...] 29 Performing Lab: Notes/Report: Test performed by [facility] [address] [place] [address] [address]ava C, [place] [address] Ketan Zamora MD, Geological Technical Officer CLIA: [id number] Lipid Panel Footnote See Below *Based on optimal reference values. Please refer to the DOS for additional information regarding diagnostic lipid reference ranges, patient management based on the recently updated lipid guidelines ([place] [employer]/[place] [employer] Association Task Force on Clinical Practice Guidelines (2018), and pediatric diagnostic lipid reference values (<18 years old). Total Cholesterol 92 <200 mg/dL Triglycerides 162 <150 mg/dL HDL Cholesterol 31 >40 mg/dL Total Cholesterol / HDL Ratio* 2.97 <4.99 Ratio Non-HDL Cholesterol 61 <130 mg/dL LDL Cholesterol (Calculation) 29 <100 mg/dL LDL / HDL Ratio* 0.92 <2.49 Ratio _ LDL Cholesterol Patient History _ Test Date: 03/07/2024 LDL Results: 37 Units: mg/dL % Change: +19% - Test Date: 09/12/2024 LDL Results: 42 Units: mg/dL % Change: +13% - Test Date: 03/15/2025 LDL Results: 29 Units: mg/dL % Change: -30% _ P-PSA Reviewed date:03/20/2025 08:30:32 AM Interpretation:1.20 Performing Lab: Notes/Report: Test performed by [facility], [address] [place] [address] Ketan Zamora MD, Geological Technical Officer IA: [id number] PSA 1.20 <4.00 ng/mL Please note this is an ultrasensitive PSA assay with a lower limit of detection of 0.014 ng/mL. This test is performed by the Agustina ECLIA methodology. Values obtained with different assay methods or kits cannot be directly compared. H-INR Reviewed date:05/04/2024 11:38:18 AM Interpretation: Performing [...] MG ON MON/FRI; 10 MG ON SUN/WED/WED/TISHA/SAT. WILL FOLLOW UP ON 05/15/24 IN CLINIC. [...] SYSTEMIC EMBOLISM SECONDARY TO AMI H-INR Reviewed date:03/26/2025 09:54:23 PM Interpretation: Performing Lab: Notes/Report: POCINRFS 2.4 0.9-1.1 Results sent to: Francisoc Kuhn MD Pharmacist recommendation for Warfarin therapy is: PATIENT INR 2.4 TODAY VIA FINGERSTICK. RECOMMENDED PATIENT CONTINUE WITH WARFARIN 10 MG ON MON/WED/WED; 7.5 MG ON SUN/TUE/TISHA/SAT. FOR DETAILED INFORMATION-PLEASE REVIEW [...] 7.5 MG ON WED/WED/WED; 10 MG ON WED/E/TISHA/SAT. WILL FOLLOW UP IN 6 WEEKS. FOR DETAILED INFORMATION-PLEASE REVIEW PROGRESS NOTE IN THE ASSESSMENTS AND ANTICOAGULATION CLINIC SECTION ANTICOAGULATION CLINIC IN PCI/CLINICAL REVIEW INDICATION INR RANGE THERAPY FOR DVT, PE, ATRIAL FIB; 2.0 - 3.0 PROPHYLAXIS FOR VTE THERAPY FOR MECHANICAL HEART 2.5 - 3.5 VALVE; PREVENTION OF SYSTEMIC EMBOLISM SECONDARY TO AMI H-INR Reviewed date:03/02/2025 11:40:27 AM Interpretation: Performing Lab: Notes/Report: POCINRFS 3.3 0.9-1.1 Results sent to: Francisco Kuhn MD Pharmacist recommendation for Warfarin therapy is: PATIENT INR 3.3 TODAY VIA FINGERSTICK. PATIENT HAS BEEN TAKING OZEMPIC FOR SEVERAL MONTHS AND HAS LOST ABOUT 20 LBS. RECOMMENDED PATIENT TAKE WARFARIN 5 MG TODAY AND TOMORROW, THEN REDUCED WEEKLY DOSE BY 2.5 MG TO WARFARIN 10 MG ON WED/WED/WED; 7.5 MG ON WED/WED/TISHA/SAT. FOR DETAILED INFORMATION-PLEASE REVIEW [...] directed diagnosis codes: G47.33, J44.9 09/03/2023 Active Carvedilol 6.25 MG 1 tablet with food Orally Twice a day Active amLODIPine Besylate 5 MG 1 tab(s) orally once a day Active Chlorthalidone 25 MG 1 tab(s) orally onc e a day Active Cozaar 100 MG 1 tab(s) orally once a day Active Fenofibrate Micronized 134 MG 1 capsule with a meal Orally Once a day; Duration: 90 days Active Farxiga 10 MG 1 tablet Orally Once a day; Duration: 90 days Active metFORMIN HCl ER 500 MG 2 tablets orally twice a day; Duration: 90 days Active DIABETIC SHOES DIRECTED DIRECTED 09/03/2022 Active Astepro 205.5 MCG/SPRAY 1 spray(s) intranasally 2-4 times a day; Duration: 30 day(s) 11/22/2019 Active tiZANidine HCl 4 MG 1 tablet at bedtime as needed Orally Once a day; Duration: 90 days Active Fluticasone Propionate 50 MCG/ACT 2 spray(s) intranasally once a day 07/05/2015 Active Pregabalin 75 MG 1 cap(s) orally once daily Active Warfarin Sodium 5 MG 2 tab(s) Orally Onc e a day; Duration: 90 days Active Symbicort 160-4.5 MCG/ACT INHALE 2 PUFFS BY MOUTH 2 TIMES A DAY (RINSE MOUTH AFTER USE) Active Aspirin 81 81MG DIRECTED QD Active Tamsulosin HCl 0.4 MG 1 capsule Orally Once a day; Duration: 90 days Active HYDROcodone-Acetaminop hen 7.5-325 MG 1 tab(s) orally bid Active Glimepiride 2 MG 1 tab(s) Orally Two times a day; Duration: 90 days Active Meclizine HCl 12.5 MG 1 tab(s) orally 3 times a day prn 06/28/2019 Active Potassium Chloride ER 10 MEQ 1 capsule with food Orally daily; Duration: 90 days Active Magnesium Oxide 400 MG 1 tab(s) orally o nce a day Active Dicyclomine HCl 10 MG 1 cap(s) orally Tw o times a day 07/28/2022 Active Ozempic (0.25 or 0.5 MG/DOSE) 2 MG/3ML 0.5 mg Subcutaneous once a week; Duration: 28 days Active Montelukast Sodium 10 MG 1 [...] (65yr and older) IM Intramuscular 02/05/2025 Administered Flublok IM Intramuscular 05/24/2018 Administered Problems Problem Type SNOMED Code ICD Code Onset Dates Problem Status W/U Status Risk Notes Problem Peripheral circulatory disorder associated with diabetes mellitus (182807626) 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 confirmed Problem Long-term current use of anticoagulant (749942096) prison current use of anticoagulants with INR goal of 2.0-3.0 (Z79.01) Active confirmed Problem COPD - Chronic obstructive pulmonary disease (56970610) COPD (chronic obstructive pulmonary disease) (J44.9) Active confirmed Problem Essential hypertension (59080032) Essential hypertension (I10) Active confirmed Problem Seasonal allergy (974046703) Seasonal allergies (J30.2) Active confirmed Problem Body mass index 30+ - obesity (269883760) BMI 30.0-30.9,adult (Z68.30) Active confirmed Problem Chronic pain (58078900) Other chronic pain (G89.29) Active confirmed Problem Hyperlipidemia due to type 2 diabetes mellitus (disorder) (198691282148349) Hyperlipidemia associated with type 2 diabetes mellitus (E11.69) Active confirmed Problem Degeneration of cervical intervertebral disc (41341464) Degenerative disc disease, cervical (M50.30) Active confirmed Problem Cardiac pacemaker in situ (906823132) Status cardiac pacemaker (Z95.0) Active confirmed Problem Bilateral tinnitus (7120413406310) Tinnitus of both ears (H93.13) Active confirmed Problem Degeneration of thoracic intervertebral disc (32376811) Degenerative disc disease, thoracic (M51.34) Active confirmed Problem Irritable bowel syndrome (70738546) Irritable bowel syndrome (K58.9) Active confirmed Problem Mild intermittent asthma (706474509) Mild intermittent asthma without complication (J45.20) Active confirmed Problem Hyperglycemia due to type 2 diabetes mellitus (231200222960735) Diabetes mellitus with hyperglycemia (E11.65) Active confirmed Problem Obstructive sleep apnea syndrome (21240163) GREG (obstructive sleep apnea) (G47.33) Active confirmed Problem Body mass index 30.00 to 34.99 (662575521133779) BMI 31.0-31.9,adult (Z68.31) Active confirmed Problem Dyslipidemia (507600335) Dyslipidemia (E78.5) Active confirmed Problem Allergic rhinitis caused by pollen (85209827) Seasonal allergic rhinitis due to pollen (J30.1) Active confirmed Problem Type II diabetes mellitus without complication (089703359) Type 2 diabetes mellitus without complication, without long-term current use of insulin (E11.9) Active confirmed Problem Occlusion and stenosis of multiple and bilateral cerebral arteries (210808315) Bilateral carotid artery 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) Active confirmed Problem Lower urinary tract symptoms due to benign prostatic hypertrophy (43022335384316) Benign prostatic hyperplasia with lower urinary tract symptoms (N40.1) Active confirmed Problem Diffuse idiopathic skeletal hyperostosis (07416147) Diffuse idiopathic skeletal hyperostosis (M48.10) Active confirmed Problem Tamez's esophagus (400714104) 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 [address] [place] [id number] 09/12/2024 R Sp Kuhn Hyperlipidemia associated with type 2 diabetes mellitus E11.69 ; Diabetes mellitus with hyperglycemia E11.65 ; A-fib I48.91 ; Status cardiac pacemaker Z95.0 and BMI 30.0-30.9,adult Z68.30 [facility] [address] [place] [id number] 12/28/2024 Richardson Kuhn Diabetes mellitus wi th hyperglycemia E11.65 ; Type 2 diabetes mellitus with other circulatory complications E11.59 and GREG (obstructive sleep apnea) G47.33 [facility] [address] [place] [id number] 02/05/2025 Richardson Kuhn Encounter for immunization Z23 [facility] [address] [place] [id number] 03/15/2025 R Sp Kuhn Type 2 diabetes dony itus with other circulatory complications E11.59 ; Diabetes mellitus with hyperglycemia E11.65 ; GREG (obstructive sleep apnea) G47.33 and Prostate cancer screening Z12.5 [facility] [address] [place] [id number] 09/12/2024 Santino Pisano GREG (obstructive sle ep apnea) G47.33 [facility] [address] [place] [id number] 09/13/2024 Santino Pisano [facility] [address] [place], [place] [id number] 01/22/2025 Santino Pisano [facility] [address] [place], [place] [id number] 02/05/2025 Santino Pisano Diabetes mellitus wi th hyperglycemia E11.65 [facility] [address] [place], [place] [id number] 03/20/2025 Santino Pisano [facility] [address] [place], [place] [id number] 03/20/2025 Santino Pisano Diabetes mellitus wi th hyperglycemia E11.65 Assessments Encounter Date Diagnosis (ICD Code) Assessment Notes Treatment Notes Treatment Clinical Notes Section Notes 08/15/2024 Acute renal failure (ICD-10 - N17.9) ----resolved 08/15/2024 C. difficile colitis (ICD-10 - A04.72) ----resolved 09/12/2024 Diabetes mellitus with hyperglycemia (ICD-10 - E11.65) 09/12/2024 GREG (obstructive sleep apnea) (ICD-10 - G47.33) 02/05/2025 Diabetes mellitus with hyperglycemia (ICD-10 - E11.65) 02/05/2025 Encounter for immunization (ICD-10 - Z23) 03/15/2025 Type 2 diabetes mellitus with other circulatory complications (ICD-10 - E11.59) 09/12/2024 Hyperlipidemia associated with type 2 diabetes mellitus (ICD-10 - E11.69) 03/20/2025 Diabetes mellitus with hyperglycemia (ICD-10 - E11.65) 12/28/2024 Type 2 diabetes mellitus with other circulatory complications (ICD-10 - E11.59) 12/28/2024 Diabetes mellitus with hyperglycemia (ICD-10 - E11.65) A1c is improved but not at goal. Will add Ozempic and titrate as tolerated. As blood sugars improved, should be able to wean some of his oral medication starting with glimepiride 12/28/2024 GREG (obstructive sleep apnea) (ICD-10 - G47.33) 03/15/2025 Diabetes mellitus with hyperglycemia (ICD-10 - [...] his appointment with the Coumadin clinic at [facility] next week 03/15/2025 Prostate cancer screening (ICD-10 - Z12.5) 09/12/2024 Status cardiac pacemaker (ICD-10 - Z95.0) 09/12/2024 BMI 30.0-30.9,adult (ICD-10 - Z68.30) 08/15/2024 Essential hypertension (ICD-10 - I10) 08/15/2024 Dyslipidemia (ICD-10 - E78.5) 08/15/2024 COPD (chronic obstructive pulmonary disease) (ICD-10 - J44.9) 08/15/2024 Hyperlipidemia associated with type 2 diabetes mellitus (ICD-10 - E11.69) 08/15/2024 Type 2 diabetes mellitus with other circulatory complications (ICD-10 - E11.59) 08/15/2024 BMI 30.0-30.9,adult (ICD-10 - Z68.30) Plan Of Treatment Next Appt Details Provider Name:Richardson Garciajass apollo, 09/13/2025 09:00:00 AM, [address] [facility], [address], [place], [place], [id number], Insurance Providers Payer Name Payer Address Payer Phone Subscriber Number Group Number Insured Name Patient Relationship to Insured Coverage Start Date Coverage End Date MEDICARE PART B [address] [address] [place] [address] [id number] RAFAELA SKINNER Self - patient is the insured [facility] [address] [place] [address] [id number] RAFAELA SKINNER Self - patient is the [...] Hospitalization History Reason Date(Month/Year) Elevated Blood Sugar- [facility] ER 05/2020 Vertigo- [facility] ER 10/2016
--- OUTSIDE RECORDS SUMMARY | 2025-04-27 09:24 | XMS_ITS | Clinical Summary ---
Author Organization [facility] Address [address] [place] [id number] Care Team Providers Care Boat Ride Operator Name Role Phone Francisco Kuhn MD [...] a Day. 180 tablet 3 5 Active meloxicam (MOBIC) 7.5 MG tablet 1 tablet. 5 Active losartan (COZAAR) 100 MG tabletIndications :Essential hypertension TAKE 1 TABLET BY MOUTH ONCE DAILY 90 tablet 1 5 Active chlorthalidone (HYGROTON) 25 MG tablet TAKE 1 TABLET BY MOUTH ONCE DAILY 90 tablet 1 5 Active amLODIPine (NORVASC) 10 MG tablet TAKE ONE HALF (1/2) TABLET BY MOUTH TWICE DAILY 90 tablet 1 5 Active Active [...] Encounters Date Type Department Care Team Description 03/19/2025 Refill [facility] [address] [facility] [place] [address] [place] [address] Glenn Lovett MD Med Refill from Last [...] Description 07/03/2025 3:15 PM EST Office Visit [facility] [address] [facility] [address] [place] [id number] Khoi Reynoso MD [address] [facility] [address] [place] [address] Health Maintenance Due Date Last Done Comments [...] 05/26/2019, 05/10 Medical Devices Implanted Type Area Quality Engineer Medical Device Device Identifier Shelf Expiration Date Model / Serial / Lot Env Pm Aigisrx Antibac Resorb 2.9x3.3in Lg - [id number] Implanted:Qty: 1 on 03/23/2022 by Khoi Reynoso MD at [facility] Implant [employer] 11/29/2022 [id number] / / [id number] Hemost Abs Surgicel Pwdr 3gm - [id number] Implanted:Qty: 1 on 03/23/2022 by Khoi Reynoso MD at [facility] Implant [employer] J AND J 06/09/2023 [id number] / / [id number] Pacemaker-12/28 Implanted:12/09 by Yvon Hirsch MD (Quantity not on file) Pacemaker [facility] V173 INVIVE MEDICAL EQUIPMENT REPAIRER-P / [id number] / Gen Pm Visionist Preventive Maintenance Engineer/P 15.2cc U225 - [id number] - [id number] Implanted:Qty: 1 on 03/23/2022 by Khoi Reynoso MD at [facility] Pacemaker [employer] 01/05/2024 [id number] / [id number] / Procedures Procedure Name Priority Date/Time Associated Diagnosis Comments REMOTE DEVICE CHECK 03/28/2025 1 2:40 AM EST SCANNED - LABS 03/15/2025 SCANNED - LABS 03/15/2025 from Last 3 Months Results * Remote Device Check (03/28/2025 12:40 AM EST) Date Time Interrogation Session [id number] [facility] Type Interrogation Session Remote Scheduled [facility] Implantable Pulse Generator Quality Engineer Medical Device [employer] [facility] Implantable Pulse Generator Type MEDICAL EQUIPMENT REPAIRER-P [facility] Implantable Pulse Generator Model U225 [facility] Implantable Pulse Generator Serial Number [id number] [facility] Implantable Pulse Generator Implant Date 20220323 [facility] Battery Remaining Percentage 100.00 % [facility] Battery Remaining Longevity 126.0 mo [facility] Battery Status Beginning of Service [facility] Stephan Statistic RA Percent Paced 0.00 [facility] Stephan Statistic RV Percent Paced 99.00 [facility] MEDICAL EQUIPMENT REPAIRER Statistic LV Percent Paced 99.00 [facility] Lead Channel Setting RA Sensing Sensitivity 0.75 [facility] Lead Channel RA Measurements Date and Time 20250327 [facility] Lead Channel RV Sensing Intrinsic Amplitude 10.700 [facility] Lead Channel Setting RV Sensing Sensitivity 2.50 [facility] Lead Channel RV Impedance Value 489 [facility] Lead Channel RV Measurements Date and Time 20250327 [facility] Lead Channel Setting RV Pacing Amplitude 2.000 [facility] Lead Channel Setting RV Pacing Pulse Width 0.4 [facility] Lead Channel LV Sensing Intrinsic Amplitude 24.300 [facility] Lead Channel LV Impedance Value 762 [facility] LV Lead Channel Measurements Date and Time 20250327 [facility] Lead Channel Setting LV Pacing Amplitude 2.000 [facility] Lead Channel Setting LV Pacing Pulse Width 0.4 [facility] Stephan Setting Mode (NBG Code) VVIR [facility] Ventricular chambers paced during MEDICAL EQUIPMENT REPAIRER pacing. BiV [facility] Stephan Setting Lower Rate Limit 70 [facility] Stephan Setting AT Mode Switch Rate 170 [facility] Stephan Setting Maximum Sensor Rate 130 [facility] MEDICAL EQUIPMENT REPAIRER LV-RV Delay 0 [facility] Lead Channel Setting RV Sensing Polarity Bipolar [facility] Lead Channel Setting RV Pacing Polarity Bipolar [facility] Lead Channel RV Pacing Threshold Polarity Bipolar [facility] Lead Channel LV Pacing Threshold Polarity Unipolar [facility] Zone Setting Type Category VT [facility] IDC RATE 1 160 [facility] Zone Setting Status Monitor [facility] Zone ID 1 [facility] 03/28/2025 12:4 0 AM EST Khoi Reynoso MD CV IMPLANTABLE CARDIAC DEVICE Fi nal Result [facility] * LABS SCANNED (03/15/2025) Only the most recent of2 resultswithin the time period is included. Glenn Lovett MD LAB BLOOD ORDERABLES Final Res ult from Last 3 Months Insurance MEDICARE A & B [facility] BLUE SHIELD PPO Care Teams Boat Ride Operator Relationship Specialty Start Date End Date Francisco Kuhn MD [address] [place] [facility] [address] [facility] [address] [place] [address] PCP - General 02/25/15
--- OUTSIDE RECORDS SUMMARY | 2025-04-27 09:24 | XMS_ITS | Encounter Summary ---
[facility] Address [address] [place] [address] Care Team Providers Care Bar Welder Name Role Phone Francisco Kuhn MD Primary Care Provider Encounter Details Date Type Department Care Team (Late st Contact Info) Description 05/21/2017 External CPT II [facility] Social History Tobacco Use [...] Visit [facility] [address] [facility] [address] [place] [phone] Khoi Reynoso MD [address] [facility] [address] [place] [address] documented as of this encounter Visit Diagnoses Not on filedocumented in this encounter Care Teams Bar Welder Relationship Specialty Start Date End Date Francisco Kuhn MD [address] [facility] [address] [place] [address] PCP - General 02/25/15 documented as of this encounter
[2025-04-27 09:37] LABS: PHA INR Fingerstick 2.4 (0.9-1.1)
== END 2025-04-27 09:39 ==
LOC: ACC 09:21
PROVIDERS: PCP Family Medicine; Visit Provider Family Medicine
DX: I48.91 Unspecified atrial fibrillation (principal); Z79.01 Long term (current) use of anticoagulants
CPT/HCPCS: 85610; 99211; G0463